=== PATIENT | female | born 1965 | race Caucasian/White ===

== ENCOUNTER → 2016-09-16 | Outpatient (CLI) | payer MEDICARE ==
[2016-09-16 19:23] LABS: Basophils % (A) 1 %; CH 30.1; CHCM 33.7; Eosinophils % (A) 0 %; HCT 34.5 % (34.0-46.0); HDW 2.78; HGB 11.6 gm/dL (11.4-16.0); Luc # (Auto) 0.15; Luc % (Auto) 3; Lymphocytes # (A) 1.4 k/uL (1.0-4.8); Lymphocytes % (A) 29 %; MCH 30.2 pg (25.0-35.0); MCHC 33.7 g/dL (31.0-37.0); MCV 89.6 fL (80.0-100.0); Mean Platelet Volume 7.4; Monocytes # (A) 0.3 k/uL (0-1.0); Monocytes % (A) 5 %; Neutrophils # (A) 3.1 k/uL (1.3-7.7); Neutrophils % (A) 63 %; RBC 3.84 m/uL (3.80-5.40); RDW 12.9 % (11.5-15.5); WBC (Perox) 5.34
[2016-09-16 19:36] LABS: ALT 38 U/L (9-52); AST 32 U/L (14-36); Alkaline Phosphatase 84 U/L (38-126); Anion Gap 11 mmol/L; Blood Urea Nitrogen 11 mg/dL (7-17); Calcium 10.1 mg/dL (8.4-10.2); Carbon Dioxide 26 mmol/L (22-30); Chloride 107 mmol/L (98-107); Glucose 101 mg/dL (74-99); Non-African American GFR(MDRD) >60 (>60 ml/min/1.73 sqM); Potassium 3.9 mmol/L (3.5-5.1); Sodium 144 mmol/L (137-145); Total Bilirubin 0.4 mg/dL (0.2-1.3); Total Protein 7.1 g/dL (6.3-8.2)
== END | disposition home or self-care (01) ==
LOC: EKGWHC1 18:14
PROVIDERS: ATTEND Psychiatry & Neurology Neurology
DX: G35 Multiple sclerosis (principal); E55.9 Vitamin D deficiency, unspecified
CPT/HCPCS: 80053; 82306; 85025

== ENCOUNTER → 2016-09-26 | Outpatient (CLI) | payer MEDICARE | END | disposition home or self-care (01) | LOC: LABWHC1 15:59 | PROVIDERS: ATTEND Nurse Practitioner Acute Care | DX: Z01.812 Encounter for preprocedural laboratory examination (principal) | CPT/HCPCS: 36415; 86480 ==

== ENCOUNTER 2017-01-25 02:38 | Emergency (ER) | payer MEDICARE ==
[2017-01-25 02:52] VITALS: BP 155/96; PULSE 91; RESP 18; TEMP 99.2
--- NOTE | 2017-01-25 03:06 | ED ---
Lower Extremity Injury HPI - General Chief Complaint: Extremity Injury, Lower Stated Complaint: FOOT INJURY Time Seen by Provider: 01/25/17 02:54 Source: patient, RN notes reviewed Mode of arrival: ambulatory Limitations: no limitations - History of Present Illness Initial Comments: 51-year-old female presents emergency Department chief complaint left foot injury. Patient states that her dog was chasing the cat states that she stubbed her foot. Patient states her is bruising, swelling noted just proximal to the second third and fourth digit. She states that she's had no prior injuries to her left foot no prior fractures. Patient denies any paresthesias. She has increased pain with ambulation better at rest and elevation. Patient states his happened last night. - Related Data Home Medications Medication Instructions Recorded Confirmed Esomeprazole Magnesium [NexIUM] 40 mg PO DAILY 02/13/16 02/13/16 cycloSPORINE 0.05% OPHTH SOLN 1 drop BOTH EYES DAILY 02/13/16 02/13/16 [Restasis] predniSONE 10 mg PO DAILY 02/13/16 02/13/16 traZODone HCL [Desyrel] 100 mg PO DAILY 02/13/16 02/13/16 Previous Rx's Medication Instructions Recorded Ondansetron Odt [Zofran ODT] 4 mg PO Q8HR PRN #5 tab 02/13/16 Allergies Allergy/AdvReac Type Severity Reaction Status Date / Time No Known Allergies Allergy Verified 01/25/17 02:51 Review of Systems ROS Statement: Those systems with pertinent positive or pertinent negative responses have been documented in the HPI. ROS Other: All systems not noted in ROS Statement are negative. Past Medical History Past Medical History: Fibromyalgia, Musculoskeletal Disorder Additional Past Medical History / Comment(s): Migraines, Shrgren syndrome, DDD, MS History of Any Multi-Drug Resistant Organisms: None Reported Past Surgical History: Appendectomy, Hysterectomy, Orthopedic Surgery Additional Past Surgical History / Comment(s): right ankle Past Psychological History: No Psychological Hx Reported Smoking Status: Never smoker Past Alcohol Use History: None Reported Past Drug Use History: None Reported General Exam Limitations: no limitations General appearance: alert, in no apparent distress Respiratory exam: Present: normal lung sounds bilaterally. Absent: respiratory distress, wheezes, rales, rhonchi, stridor Cardiovascular Exam: Present: regular rate, normal rhythm, normal heart sounds. Absent: systolic murmur, diastolic murmur, rubs, gallop, clicks Extremities exam: Present: other (Left foot there is ecchymosis noted proximal to digits 2 through 4 with moderate tenderness neurovascular intact Refill less than 2 seconds there is no proximal foot tenderness no ankle tenderness.) Neurological exam: Present: reflexes normal. Absent: motor sensory deficit Skin exam: Present: warm, dry Course Vital Signs 01/25/17 02:46 Temperature 99.2 F Pulse Rate 91 Respiratory 18 Rate Blood Pressure 155/96 O2 Sat by Pulse 98 Oximetry Medical Decision Making - Medical Decision Making 51-year-old female presented emergency department for left foot pain. Patient has a third digit fracture. There is number tarsal fracture. Patient has appointment with orthopedics tomorrow return parameters were discussed. Disposition Clinical Impression: Toe fracture Disposition: HOME SELF-CARE Condition: Stable Instructions: Toe Fracture (ED) Additional Instructions: Please return to the Emergency Department if symptoms worsen or any other concerns. Referrals: Sujit Pak DO [Primary Care Provider] - 1-2 days Time of Disposition: 03:28
--- NOTE | 2017-01-25 03:59 | XR ---
EXAM: XR Left Foot Complete, 3 or More Views CLINICAL HISTORY: Reason: Anterior foot pain and bruising post injury. TECHNIQUE: Frontal, lateral and oblique views of the left foot. COMPARISON: No relevant prior studies available. FINDINGS: Bones/joints: As only seen on the oblique view, there is oblique lucency involving the proximal to mid shaft of the third proximal phalanx, which raises suspicion for a nondisplaced fracture. The osseous structures otherwise appear intact as does alignment. Soft tissues: Unremarkable. No radiopaque foreign body. IMPRESSION: Oblique lucency involving the third proximal phalanx that is only apparent on one view although does raise suspicion for the presence of a nondisplaced fracture. This could be correlated clinically with site of symptomatology.
== END 2017-01-25 03:45 | disposition home or self-care (01) ==
LOC: EC 02:38
DX: S92.515A Nondisplaced fracture of proximal phalanx of left lesser toe(s), initial encounter for closed fracture (principal); M62.9 Disorder of muscle, unspecified; Z79.52 Long term (current) use of systemic steroids; Z79.899 Other long term (current) drug therapy; W22.09XA Striking against other stationary object, initial encounter
CPT/HCPCS: 99283

== ENCOUNTER → 2017-02-13 | Outpatient (CLI) | payer MEDICARE ==
[2017-02-13 12:59] LABS: ALT 38 U/L (9-52); AST 20 U/L (14-36); Alkaline Phosphatase 71 U/L (38-126); Anion Gap 11 mmol/L; Blood Urea Nitrogen 14 mg/dL (7-17); Calcium 10.4 mg/dL (8.4-10.2); Carbon Dioxide 25 mmol/L (22-30); Chloride 109 mmol/L (98-107); Glucose 106 mg/dL (74-99); Non-African American GFR(MDRD) >60 (>60 ml/min/1.73 sqM); Potassium 3.9 mmol/L (3.5-5.1); Sodium 145 mmol/L (137-145); Total Bilirubin 0.3 mg/dL (0.2-1.3)
[2017-02-13 13:02] LABS: Basophils % (A) 0 %; CH 30.8; CHCM 32.8; Eosinophils % (A) 0 %; HCT 39.9 % (34.0-46.0); HDW 2.43; HGB 13.1 gm/dL (11.4-16.0); Luc # (Auto) 0.07; Luc % (Auto) 1; Lymphocytes # (A) 2.4 k/uL (1.0-4.8); Lymphocytes % (A) 47 %; MCHC 32.8 g/dL (31.0-37.0); MCV 94.4 fL (80.0-100.0); Mean Platelet Volume 7.4; Monocytes # (A) 0.3 k/uL (0-1.0); Monocytes % (A) 6 %; Neutrophils # (A) 2.4 k/uL (1.3-7.7); Neutrophils % (A) 46 %; RBC 4.23 m/uL (3.80-5.40); RDW 13.9 % (11.5-15.5); WBC 5.2 k/uL (3.8-10.6); WBC (Perox) 5.26
--- NOTE | 2017-02-13 16:50 | MR ---
EXAMINATION TYPE: MR brain wo/w con DATE OF EXAM: 02/13/2017 COMPARISON: 12/28/2015 HISTORY: MS follow Tingling in Fingers Both Hands, hx pineal cyst TECHNIQUE: Multiplanar, multisequence images of the brain and brainstem is performed without and with IV contras t, utilizing 14 mL intravenous MultiHance . FINDINGS: Diffusion weighted images demonstrate no evidence of a recent infarct or other diffusion ab normality. There is no extra-axial fluid collection or significant white matter signal abnormality. The ventricular system and cisternal spaces are normal in size and appearance. The brain volume is age appropriate. Midline structures demonstrate normal morphology. The craniocervical junction appears within normal limits. On inversion recovery weighted sequences there are subcortical and deep white matter punctate changes . The larger areas are within the posterior frontal lobes. On the left this measures 0.3 x 0.3 x 0.2 cm in size. Series 501, image 17, series 601 image 10. A larger area within the right frontal lobe me asures 0.4 x 0.5 x 0.2 cm. Series 501, image 18, series 601 image 25. Following contrast administration, no abnormal enhancement is evident. Dural sinus appears normal. No rmal vascular enhancement appears to be present. Pineal region appears stable in size. IMPRESSION: 1. Few small white matter changes slightly greater than expected for the patient age. Findings can be compatible with multiple sclerosis. Differential should include migraine headaches and Lyme disease among other etiologies. 2. Examination appears stable from 2015.
== END | disposition home or self-care (01) ==
LOC: RADMRIMAIN 12:22
PROVIDERS: ATTEND Psychiatry & Neurology Neurology
DX: Z51.81 Encounter for therapeutic drug level monitoring (principal); G35 Multiple sclerosis; E55.9 Vitamin D deficiency, unspecified
CPT/HCPCS: 80053; 85025; 82306; 70553; 36415; A9577

== ENCOUNTER → 2017-02-23 | Outpatient (CLI) | payer MEDICARE ==
--- NOTE | 2017-02-27 09:02 | MM ---
Reason for exam: screening (asymptomatic). Last mammogram was performed 4 years and 3 months ago. History: Family history of breast cancer in maternal grandmother and breast cancer in aunt. Took hormonal contraceptives for 10 years. Physical Findings: A clinical breast exam by your physician is recommended on an annual basis and results should be correlated with mammographic findings. MG 3D Screening Mammo W/Cad Bilateral CC and MLO view(s) were taken. Prior study comparison: December 06, 2012, mammogram, performed at [facility]. September 30, 2010, mammogram, performed at [facility]. The breast tissue is heterogeneously dense. This may lower the sensitivity of mammography. No significant changes when compared with prior studies. ASSESSMENT: Negative, BI-RAD 1 RECOMMENDATION: Routine screening mammogram of both breasts in 1 year.
== END | disposition home or self-care (01) ==
LOC: RADMAMWWP 13:47
PROVIDERS: ATTEND Family Medicine
DX: Z12.31 Encounter for screening mammogram for malignant neoplasm of breast (principal)
CPT/HCPCS: 77063; G0202

== ENCOUNTER → 2017-09-21 | Outpatient (CLI) | payer OTHER ==
[2017-09-21 16:43] LABS: Basophils % (A) 0 %; Eosinophils % (A) 0 %; HCT 36.7 % (34.0-46.0); Lymphocytes # (A) 1.4 k/uL (1.0-4.8); Lymphocytes % (A) 17 %; MCHC 32.7 g/dL (31.0-37.0); MCV 91.9 fL (80.0-100.0); Mean Platelet Volume 7.2; Monocytes # (A) 0.5 k/uL (0-1.0); Monocytes % (A) 6 %; Neutrophils # (A) 6.6 k/uL (1.3-7.7); Neutrophils % (A) 76 %; Platelet Count 412 k/uL (150-450); RDW 12.8 % (11.5-15.5); WBC 8.6 k/uL (3.8-10.6)
== END | disposition home or self-care (01) ==
LOC: LABWHC1 16:01 → MERGE 16:01
PROVIDERS: ATTEND Obstetrics & Gynecology
DX: Z01.812 Encounter for preprocedural laboratory examination (principal); Z01.818 Encounter for other preprocedural examination; N89.8 Other specified noninflammatory disorders of vagina; N93.9 Abnormal uterine and vaginal bleeding, unspecified; I10 Essential (primary) hypertension
CPT/HCPCS: 36415; 85025; 93005

== ENCOUNTER 2017-10-02 08:33 | Day surgery (SDC) | payer MEDICARE ==
[~2017-10-02 08:33] MED LIST: DEXAMETHASONE SOD PHOSPHATE 10 MG/ML 1 ML VIAL IV ONE; LACTATED RINGERS 1,000 ML IV SCH; MIDAZOLAM 2 MG/2 ML VIAL IV PRN; ONDANSETRON 4 MG/2 ML VIAL IVP ONE; SCOPOLAMINE 1.5MG/72HR PATCH TRANSDERM ONE; fentaNYL (PF) 50 MCG/ML 2 ML AMP IV PRN
[2017-10-02] MEDS ORDERED: LIDOCAINE 1% 20 ML VIAL (10MG/ML) FOR IV START INTRADERMA ONE (09:39)
[2017-10-02 09:47] LABS: Glucose,Whole Blood 109 mg/dL (75-99)
[2017-10-02] MEDS ORDERED: HYDROCORTISONE SUCCINATE 100 MG/2 ML VIAL IVP ONE (09:59)
[2017-10-02] MEDS ORDERED: MIDAZOLAM 2 MG/2 ML VIAL ONE (10:20)
[2017-10-02] MEDS ORDERED: fentaNYL (PF) 50 MCG/ML 2 ML AMP ONE (10:20)
[2017-10-02] MEDS ORDERED: PROPOFOL 10 MG/ML 20 ML VIAL IV ONE (10:20)
[2017-10-02] MEDS ORDERED: LIDOCAINE 1% INJ 10MG/ML (20 ML MDV) ONE (10:20)
[2017-10-02] MEDS ORDERED: BACITRACIN 500 UNIT/GM OINT 28.4 GM TUBE TOPICAL ONE (10:44)
--- NOTE | 2017-10-02 10:59 | P.OP ---
Date of Procedure: 10/02/17 Preoperative Diagnosis: Postcoital bleeding Possible vaginal lesion Vaginal atrophy Postoperative Diagnosis: Postcoital bleeding Severe vaginal atrophy Procedure(s) Performed: Exam under anesthesia with biopsies of vaginal apex Anesthesia: MAC Surgeon: Lexy Alegre Estimated Blood Loss (ml): 5 IV fluids (ml): 400 Urine output (ml): 25 Pathology: other (Vaginal apex biopsies 3) Condition: stable Disposition: PACU Indications for Procedure: Heavy postcoital bleeding Operative Findings: Foreshortened vagina status post hysterectomy. Severe vaginal atrophy with reading and evidence of, at vaginal apex. No gross lesions appreciated. Description of Procedure: After the patient was met in the preoperative holding area and all questions were answered, she was taken to the operating room where anesthetic was administered without incident. She was in positioned, prepped and draped in the dorsal lithotomy position. Bladder was drained for approximately 25 mL of clear urine. Speculum was placed in the vagina and the vagina was noted to be foreshortened likely secondary to atrophy and hysterectomy. The apex of the vagina was visualized and there was noted to be significant thinning of the vaginal tissue, paleness and an area of hyperemia consistent with possible healing trauma. This area did bleed when the speculum insertion. There appeared to be a small superficial vessel in this area. Rn Ante Partum biopsies from the left, midline and and right apex of the vagina were taken with the Diabetoian biopsy instrument. Bovie electrocautery was utilized for hemostasis at each biopsy site is well as the superficial blood vessel that was bleeding at the right apex. I believe this to be the initial source of her postcoital bleeding. The area was observed and some additional bleeding was noted. This was controlled with holding firm pressure to the area. EBL was approximately 5 mL's. The area was observed and noted to be hemostatic therefore the patient was awoken from anesthetic and transported to recovery in good condition. All counts reported to me as correct.
[2017-10-02 11:06] VITALS: TEMP 96.8
[2017-10-02 12:19] VITALS: BP 104/62; PULSE 83; RESP 18
== END 2017-10-02 12:33 | disposition home or self-care (01) ==
LOC: OR 08:33 → MERGE 11:25 → OR 12:33
PROVIDERS: ATTEND Obstetrics & Gynecology
DX: N95.2 Postmenopausal atrophic vaginitis (principal); N76.5 Ulceration of vagina; N93.0 Postcoital and contact bleeding; M45.9 Ankylosing spondylitis of unspecified sites in spine; M19.90 Unspecified osteoarthritis, unspecified site; M79.7 Fibromyalgia; I10 Essential (primary) hypertension; K58.9 Irritable bowel syndrome, unspecified; G35 Multiple sclerosis; I73.00 Raynaud's syndrome without gangrene; M35.00 Sjogren syndrome, unspecified; F32.9 Major depressive disorder, single episode, unspecified; K21.9 Gastro-esophageal reflux disease without esophagitis; Z79.891 Long term (current) use of opiate analgesic; Z79.899 Other long term (current) drug therapy; Z88.6 Allergy status to analgesic agent
CPT/HCPCS: 88305; 57100; J2250; J1100; J1720; J2405; J2001; J3010; J2704

== ENCOUNTER → 2017-10-04 | Outpatient (CLI) | payer MEDICARE ==
[2017-10-04 11:53] LABS: Albumin 4.3 g/dL (3.5-5.0); Calcium 10.1 mg/dL (8.4-10.2); Potassium 4.2 mmol/L (3.5-5.1); Total Bilirubin 0.4 mg/dL (0.2-1.3); Total Protein 6.9 g/dL (6.3-8.2)
[2017-10-04 16:19] LABS: Vitamin D 25 Hydroxy 81.4 ng/mL (30.0-100.0)
== END | disposition home or self-care (01) ==
LOC: LABWHC1 10:43
PROVIDERS: ATTEND Nurse Practitioner Acute Care
DX: E55.9 Vitamin D deficiency, unspecified (principal); G35 Multiple sclerosis
CPT/HCPCS: 36415; 80053; 82306; 82607

== ENCOUNTER → 2017-11-06 | Outpatient (CLI) | payer MEDICARE | END | disposition home or self-care (01) | LOC: LABWHC1 14:49 | PROVIDERS: ATTEND Obstetrics & Gynecology | DX: N95.2 Postmenopausal atrophic vaginitis (principal); N95.1 Menopausal and female climacteric states | CPT/HCPCS: 36415; 82670; 83001; 84403 ==

== ENCOUNTER → 2018-01-19 | Outpatient (CLI) | payer MEDICARE ==
[2018-01-19 12:41] LABS: Blood Urea Nitrogen 22 mg/dL (7-17)
--- NOTE | 2018-01-21 21:18 | MR ---
EXAMINATION TYPE: MR brain wo/w con DATE OF EXAM: 01/19/2018 COMPARISON: 02/13/2017 HISTORY: 52-year-old female MS, follow-up exam TECHNIQUE: Multiplanar, multisequence images of the brain and brainstem is performed without and with utilizing 7 mL intravenous Gadavist gadolinium contrast. Demyelinating disease protocol with additi onal Sagittal Flair sequence performed. FINDINGS: T2 Lesions Present : Yes Approximate Number of Lesions: 4 and the right cerebral hemisphere and 2 on the left Locations Identified : Primarily bifrontal subcortical Size of Reference Lesion(s): 1. 5 mm subcortical right frontal region, axial image 18, unchanged. 2. 3 mm subcortical left frontal region, axial image 16, unchanged. Enhancing Lesion(s) Present: No T1 Hypointense Lesion(s) Present: Yes Change from Prior: No change Diffusion weighted images demonstrate no evidence of a recent infarct or other diffusion abnormality. There is no worrisome extra-axial fluid collection. The ventricular system and cisternal spaces ar e normal in size and appearance. The brain volume is age appropriate. Midline structures demonstrate normal morphology. The craniocervical junction appears within normal limits. Post contrast images demonstrate no abnormal enhancement. The dural venous sinuses appear pa tent. Trace mucosal thickening ethmoid air cells and frontal sinuses. Globes are intact. IMPRESSION: Stable mild burden of T2 bright white matter change in the bifrontal juxtacortical regions. No new or enhancing lesion seen.
== END | disposition home or self-care (01) ==
LOC: RADMRIMAIN 12:08
PROVIDERS: ATTEND Psychiatry & Neurology Neurology
DX: R90.82 White matter disease, unspecified (principal); G35 Multiple sclerosis
CPT/HCPCS: 82565; 84520; 70553; 36415; A9581

== ENCOUNTER → 2018-02-01 | Outpatient (CLI) | payer MEDICARE ==
--- NOTE | 2018-02-01 17:50 | XR ---
EXAMINATION TYPE: XR ribs bilateral DATE OF EXAM: 02/01/2018 COMPARISON: NONE HISTORY: Rib pain TECHNIQUE: 8 views FINDINGS: There is deformity of lower lateral ribs bilaterally related to old healed fractures. There is possible new acute fracture anterior left eighth rib. There is no evidence of pleural effusion or pneumothorax. IMPRESSION: Possible new nondisplaced fracture anterior left eighth rib.
== END | disposition home or self-care (01) ==
LOC: RADXRMAIN 17:18
PROVIDERS: ATTEND Family Medicine
DX: R07.82 Intercostal pain (principal)
CPT/HCPCS: 71110

== ENCOUNTER → 2018-02-01 | Outpatient (CLI) | payer MEDICARE ==
[2018-02-01 17:51] LABS: Basophils % (A) 0 %; Eosinophils % (A) 0 %; Lymphocytes # (A) 1.2 k/uL (1.0-4.8); Lymphocytes % (A) 14 %; MCH 29.5 pg (25.0-35.0); MCHC 32.3 g/dL (31.0-37.0); MCV 91.5 fL (80.0-100.0); Monocytes # (A) 0.4 k/uL (0-1.0); Monocytes % (A) 5 %; Neutrophils # (A) 6.4 k/uL (1.3-7.7); Neutrophils % (A) 80 %; Platelet Count 431 k/uL (150-450); RBC 4.05 m/uL (3.80-5.40); RDW 13.9 % (11.5-15.5)
[2018-02-01 17:59] LABS: ALT 46 U/L (9-52); AST 30 U/L (14-36); Albumin 4.3 g/dL (3.5-5.0); Alkaline Phosphatase 141 U/L (38-126); Anion Gap 9 mmol/L; Blood Urea Nitrogen 19 mg/dL (7-17); Calcium 10.4 mg/dL (8.4-10.2); Carbon Dioxide 32 mmol/L (22-30); Chloride 98 mmol/L (98-107); Glucose 113 mg/dL (74-99); Potassium 3.9 mmol/L (3.5-5.1); Sodium 139 mmol/L (137-145); Total Bilirubin 0.4 mg/dL (0.2-1.3); Total Protein 6.9 g/dL (6.3-8.2)
== END | disposition home or self-care (01) ==
LOC: LABWHC1 17:02
PROVIDERS: ATTEND Nurse Practitioner Acute Care
DX: G35 Multiple sclerosis (principal); E55.9 Vitamin D deficiency, unspecified
CPT/HCPCS: 36415; 80053; 82306; 85025

== ENCOUNTER → 2018-02-22 | Outpatient (CLI) | payer MEDICARE ==
--- NOTE | 2018-02-22 13:38 | MR ---
MRI CERVICAL SPINE: CLINICAL HISTORY: Cervicalgia per order. Headache with neck and extremity pain with tingling/numbness and weakness in upper extremities per patient for over 8 years. TECHNIQUE: Multiplanar, multisequence imaging of the cervical spine is performed without IV contrast. Demyelinating disease protocol with additional PD sagittal sequence cervical spine acquired. COMPARISON: Prior MRI cervical spine December 28, 2015 FINDINGS: Sagittal images of the cervical spine show the craniocervical junction to appear within nor mal limits. The cervical and upper thoracic spinal cord is normal in course, caliber, and signal. V ertebral alignment is anatomic. The vertebral body and intravertebral disk heights are normal. Tiny posterior disc herniation remains present C5-C6 level on sagittal images effacing anterior thecal sac . The bone marrow signal intensity is within normal limits. No significant spurring is present. Axial images show the C2-C3 and C3-C4 levels to remain within normal limits. Axial images at C4-C5 level show uncovertebral facet arthropathy and small foraminal disc herniations causing [id number] bilateral neural foraminal narrowing. No significant change from prior. Axial images at C5-C6 level show broad-based posterior disc protrusion effacing anterior thecal sac a nd causing [id number] bilateral neural foraminal narrowing. Axial images at C6-C7 and C7-T1 levels remain within normal limits. IMPRESSION: Some degenerative changes C4-C5 and C5-C6 level redemonstrated. No significant change fro m prior MRI. No abnormal cord signal to suggest demyelinating disease involvement.
== END | disposition home or self-care (01) ==
LOC: RADMRIMAIN 12:50
PROVIDERS: ATTEND Nurse Practitioner Acute Care
DX: M47.812 Spondylosis without myelopathy or radiculopathy, cervical region (principal)
CPT/HCPCS: 72141

== ENCOUNTER → 2018-06-25 | Outpatient (CLI) | payer MEDICARE ==
--- NOTE | 2018-06-25 17:20 | XR ---
EXAMINATION TYPE: XR chest 2V DATE OF EXAM: 06/25/2018 COMPARISON: NONE HISTORY: Chest pain TECHNIQUE: Frontal and lateral views of the chest are obtained. FINDINGS: There is no focal air space opacity, pleural effusion, or pneumothorax seen. The cardiac silhouette size is within normal limits. There is a spinal curvature present. The osseous structures are intact. IMPRESSION: No acute cardiopulmonary process. Suspect scoliosis.
== END | disposition home or self-care (01) ==
LOC: RADXRMAIN 15:53
PROVIDERS: ATTEND Family Medicine
DX: R07.89 Other chest pain (principal)
CPT/HCPCS: 71046

== ENCOUNTER → 2018-10-24 | Outpatient (CLI) | payer MEDICARE ==
--- NOTE | 2018-10-24 15:55 | XR ---
Right foot HISTORY: Trauma and pain 3 views of the right foot Bone mineralization remarkable for a linear lucency at the proximal fifth metatarsal. No dislocation. Alignment and bone mineralization, joint spaces otherwise maintained. Postop change noted to the dis daren fibula. IMPRESSION: Nondisplaced proximal fifth metatarsal fracture is suspected. Correlate for kianna yang ess. A Yellow level critical message alert has been initiated for Chase Morales DO via the [facility] on 10/24/2018 3:53 PM. This message alert has been sent to Chase Morales DO via the preferences provided by the clinician for the receipt of Radiology Critical Findings. Message ID [id number].
== END | disposition home or self-care (01) ==
LOC: RADXRMAIN 12:53
PROVIDERS: ATTEND Family Medicine
DX: M79.671 Pain in right foot (principal)
CPT/HCPCS: 87086

== ENCOUNTER 2018-12-20 13:06 | Inpatient (IN) | payer MEDICARE ==
--- NOTE | 2018-12-20 13:22 | ED ---
General Adult HPI - General Chief complaint: Nausea/Vomiting/Diarrhea Stated complaint: NVD, chest pain Time Seen by Provider: 12/20/18 13:15 Source: patient, RN notes reviewed Mode of arrival: ambulatory Limitations: no limitations - History of Present Illness Initial comments: 53-year-old femaleWith the past medical history of fibromyalgia, musculoskeletal disorder, migraines, Sjogren syndrome, MS, DDD resents to the emergency department for multiple complaints. Patient's main complaint is nausea vomiting and diarrhea times one week. States that she came down with some type of stomach flu about a week ago and feels she is dehydrated. States the vomiting has resolved but she is still having several episodes of diarrhea. Denies any abdominal pain but states she does not have an appetite. States that she is also having some chest pain has been ongoing for several days or states it is sharp in nature. States she feels more tired than normal which has been ongoing for several months so she had a stress test scheduled for yesterday which she was unable to attend. States she did fall this past week due to her generalized weakness and is now complaining of left ankle pain. Denies fevers or chills. Denies abdominal pain. Denies any hematemesis, melena. Denies any dysuria. Denies any cough congestion.Patient has no other complaints at this time including shortness of breath, headache, or visual changes. - Related Data Home Medications Medication Instructions Recorded Confirmed predniSONE 20 mg PO QAM 02/13/16 09/27/17 traZODone HCL [Desyrel] 100 mg PO HS 02/13/16 10/02/17 Ascorbic Acid [Vitamin C with Kathy 1 tab PO DAILY 09/27/17 10/02/17 Hips] Calcium,Mg,Zinc, Vit D3 1 tab PO DAILY 09/27/17 10/02/17 Carvedilol [Coreg] 25 mg PO BID 09/27/17 09/27/17 Cholecalciferol [Vitamin D3] 5,000 unit PO DAILY 09/27/17 09/27/17 Cyclobenzaprine [Flexeril] 10 mg PO TID 09/27/17 10/02/17 Esomeprazole Magnesium [NexIUM] 40 mg PO BID 09/27/17 09/27/17 Ibuprofen 800 mg PO DAILY PRN 09/27/17 09/27/17 Lisdexamfetamine Dimesylate 70 mg PO QAM 09/27/17 10/02/17 [Vyvanse] Losartan/Hydrochlorothiazide 1 tab PO QAM 09/27/17 09/27/17 [Hyzaar 100-25 Tablet] Pilocarpine HCl [Salagen] 5 mg PO TID 09/27/17 09/27/17 Teriflunomide [Aubagio] 14 mg PO HS 09/27/17 10/02/17 Topiramate 50 mg PO BID 09/27/17 09/27/17 Venlafaxine HCl ER [Effexor XR] 150 mg PO PC-SUPPER 09/27/17 10/02/17 Vitamin B Complex 1 tab PO DAILY 09/27/17 09/27/17 oxyCODONE-APAP 10-325MG [Percocet 1 tab PO Q6HR PRN 09/27/17 10/02/17 10-325 mg] rOPINIRole HCL 5 mg PO HS 09/27/17 10/02/17 Previous Rx's Medication Instructions Recorded Estradiol Cream [Estrace Cream 1 gm VAGINAL Q3D #30 tube 10/02/17 0.01%] Allergies Allergy/AdvReac Type Severity Reaction Status Date / Time aspirin AdvReac Nausea Verified 12/20/18 13:14 Review of Systems ROS Statement: Those systems with pertinent positive or pertinent negative responses have been documented in the HPI. ROS Other: All systems not noted in ROS Statement are negative. Past Medical History Past Medical History: Fibromyalgia, Musculoskeletal Disorder Additional Past Medical History / Comment(s): Migraines, Shrgren syndrome, DDD, MS History of Any Multi-Drug Resistant Organisms: None Reported Past Surgical History: Appendectomy, Hysterectomy, Orthopedic Surgery Additional Past Surgical History / Comment(s): right ankle Past Psychological History: No Psychological Hx Reported Smoking Status: Never smoker Past Alcohol Use History: None Reported Past Drug Use History: None Reported General Exam Limitations: no limitations General appearance: alert, in no apparent distress Head exam: Present: atraumatic, normocephalic, normal inspection Eye exam: Present: normal appearance, PERRL, EOMI. Absent: scleral icterus, conjunctival injection ENT exam: Present: normal exam, normal oropharynx, mucous membranes moist, TM's normal bilaterally, normal external ear exam Neck exam: Present: normal inspection, full ROM. Absent: tenderness, meningismus, lymphadenopathy Respiratory exam: Present: normal lung sounds bilaterally. Absent: respiratory distress, wheezes, rales, rhonchi, stridor Cardiovascular Exam: Present: regular rate, normal rhythm, normal heart sounds. Absent: systolic murmur, diastolic murmur, rubs, gallop, clicks GI/Abdominal exam: Present: soft, normal bowel sounds. Absent: distended, tenderness, guarding, rebound, rigid Neurological exam: Present: alert, oriented X3, CN II-XII intact Psychiatric exam: Present: normal affect, normal mood Course Vital Signs 12/20/18 12/20/18 12/20/18 13:11 14:28 14:31 Temperature 97.0 F L Pulse Rate 101 H 93 Respiratory 18 18 18 Rate Blood Pressure 105/57 92/56 O2 Sat by Pulse 98 100 Oximetry 12/20/18 15:51 Temperature 98 F Pulse Rate 93 Respiratory 18 Rate Blood Pressure 104/52 O2 Sat by Pulse 100 Oximetry EKG Findings - EKG Comments: EKG Findings:: Normal sinus rhythm, ventricular rate 99, CA interval 148, QTC 469, right bundle branch block noted, chronic. Procedures - Orthopedic Splinting/Casting Injury #1 Side: left Lower Extremity Injury Location: short leg Lower Extremity Immobilizer: posterior splint Additional Comments: NV status intact Medical Decision Making - Medical Decision Making 53-year-old female with a past medical history of fibromyalgia, Sjogren's, DDD, MS presents for multiple complaints. Patient's main complaint is nausea vomiting diarrhea times one week. Feels very weak because of this. No appetite. Laboratory work did reveal patient to be an acute kidney failure with a creatinine of 5.92. Additionally I think this is likely secondary to a prerenal cause of dehydration from nausea vomiting and diarrhea. Patient given 2 L of fluids and started on 150 per hour maintenance. CBC unremarkable besides for some mild anemia with hemoglobin of 9.8. Patient does have hyper phosphatemia with a phosphorus of 6.9. Minimal hypokalemia with a potassium of 3.4. Anion gap was 22 noted. Urine will be cultured. At this point patient will be admitted for nephrology consult. Juan Alberto also consulted as she does have a left fibular fracture from a fall a couple days ago from this weakness. Patient was limited in a posterior mold. - Lab Data Result diagrams: 12/20/18 13:45 12/20/18 13:45 Lab Results 12/20/18 12/20/18 12/20/18 Range/Units 13:45 13:45 13:45 WBC 4.8 (3.8-10.6) k/uL RBC 3.13 L (3.80-5.40) m/uL Hgb 9.8 L (11.4-16.0) gm/dL Hct 27.5 L (34.0-46.0) % MCV 87.8 (80.0-100.0) fL MCH 31.4 (25.0-35.0) pg MCHC 35.8 (31.0-37.0) g/dL RDW 14.0 (11.5-15.5) % Plt Count 439 (150-450) k/uL Neutrophils % 78 % Lymphocytes % 14 % Monocytes % 6 % Eosinophils % 0 % Basophils % 0 % Neutrophils # 3.7 (1.3-7.7) k/uL Lymphocytes # 0.7 L (1.0-4.8) k/uL Monocytes # 0.3 (0-1.0) k/uL Eosinophils # 0.0 (0-0.7) k/uL Basophils # 0.0 (0-0.2) k/uL Sodium 134 L (137-145) mmol/L Potassium 3.4 L (3.5-5.1) mmol/L Chloride 95 L (98-107) mmol/L Carbon Dioxide 17 L (22-30) mmol/L Anion Gap 22 mmol/L BUN 72 H (7-17) mg/dL Creatinine 5.92 H (0.52-1.04) mg/dL Est GFR (CKD-EPI)AfAm 9 (>60 ml/min/1.73 sqM) Est GFR (CKD-EPI)NonAf 8 (>60 ml/min/1.73 sqM) Glucose 107 H (74-99) mg/dL Calcium 9.3 (8.4-10.2) mg/dL Phosphorus (2.5-4.5) mg/dL Magnesium (1.6-2.3) mg/dL Total Bilirubin 0.6 (0.2-1.3) mg/dL AST 22 (14-36) U/L ALT 24 (9-52) U/L Alkaline Phosphatase 109 (38-126) U/L Creatine Kinase (30-135) U/L Troponin I <0.012 (0.000-0.034) ng/mL Total Protein 7.3 (6.3-8.2) g/dL Albumin 4.3 (3.5-5.0) g/dL Amylase 82 (30-110) U/L Lipase 152 (23-300) U/L Urine Color Urine Appearance (Clear) Urine pH (5.0-8.0) Ur Specific [place] (1.001-1.035) Urine Protein (Negative) Urine Glucose (UA) (Negative) Urine Ketones (Negative) Urine Blood (Negative) Urine Nitrite (Negative) Urine Bilirubin (Negative) Urine Urobilinogen (<2.0) mg/dL Ur Leukocyte Esterase (Negative) Urine RBC (0-5) /hpf Urine WBC (0-5) /hpf Ur Squamous Epith Cells (0-4) /hpf Urine Bacteria (None) /hpf Hyaline Casts (0-2) /lpf Urine Mucus (None) /hpf Urine HCG, Qual (Not Detectd) 12/20/18 12/20/18 12/20/18 Range/Units 13:45 13:45 15:00 WBC (3.8-10.6) k/uL RBC (3.80-5.40) m/uL Hgb (11.4-16.0) gm/dL Hct (34.0-46.0) % MCV (80.0-100.0) fL MCH (25.0-35.0) pg MCHC (31.0-37.0) g/dL RDW (11.5-15.5) % Plt Count (150-450) k/uL Neutrophils % % Lymphocytes % % Monocytes % % Eosinophils % % Basophils % % Neutrophils # (1.3-7.7) k/uL Lymphocytes # (1.0-4.8) k/uL Monocytes # (0-1.0) k/uL Eosinophils # (0-0.7) k/uL Basophils # (0-0.2) k/uL Sodium (137-145) mmol/L Potassium (3.5-5.1) mmol/L Chloride (98-107) mmol/L Carbon Dioxide (22-30) mmol/L Anion Gap mmol/L BUN (7-17) mg/dL Creatinine (0.52-1.04) mg/dL Est GFR (CKD-EPI)AfAm (>60 ml/min/1.73 sqM) Est GFR (CKD-EPI)NonAf (>60 ml/min/1.73 sqM) Glucose (74-99) mg/dL Calcium (8.4-10.2) mg/dL Phosphorus 6.9 H (2.5-4.5) mg/dL Magnesium 1.8 (1.6-2.3) mg/dL Total Bilirubin (0.2-1.3) mg/dL AST (14-36) U/L ALT (9-52) U/L Alkaline Phosphatase (38-126) U/L Creatine Kinase 164 H (30-135) U/L Troponin I (0.000-0.034) ng/mL Total Protein (6.3-8.2) g/dL Albumin (3.5-5.0) g/dL Amylase (30-110) U/L Lipase (23-300) U/L Urine Color Yellow Urine Appearance Cloudy H (Clear) Urine pH 5.0 (5.0-8.0) Ur Specific [place] 1.019 (1.001-1.035) Urine Protein 1+ H (Negative) Urine Glucose (UA) Negative (Negative) Urine Ketones Trace H (Negative) Urine Blood Negative (Negative) Urine Nitrite Negative (Negative) Urine Bilirubin Negative (Negative) Urine Urobilinogen 2.0 (<2.0) mg/dL Ur Leukocyte Esterase Large H (Negative) Urine RBC 10 H (0-5) /hpf Urine WBC 20 H (0-5) /hpf Ur Squamous Epith Cells 13 H (0-4) /hpf Urine Bacteria Rare H (None) /hpf Hyaline Casts 39 H (0-2) /lpf Urine Mucus Rare H (None) /hpf Urine HCG, Qual (Not Detectd) 12/20/18 Range/Units 15:00 WBC (3.8-10.6) k/uL RBC (3.80-5.40) m/uL Hgb (11.4-16.0) gm/dL Hct (34.0-46.0) % MCV (80.0-100.0) fL MCH (25.0-35.0) pg MCHC (31.0-37.0) g/dL RDW (11.5-15.5) % Plt Count (150-450) k/uL Neutrophils % % Lymphocytes % % Monocytes % % Eosinophils % % Basophils % % Neutrophils # (1.3-7.7) k/uL Lymphocytes # (1.0-4.8) k/uL Monocytes # (0-1.0) k/uL Eosinophils # (0-0.7) k/uL Basophils # (0-0.2) k/uL Sodium (137-145) mmol/L Potassium (3.5-5.1) mmol/L Chloride (98-107) mmol/L Carbon Dioxide (22-30) mmol/L Anion Gap mmol/L BUN (7-17) mg/dL Creatinine (0.52-1.04) mg/dL Est GFR (CKD-EPI)AfAm (>60 ml/min/1.73 sqM) Est GFR (CKD-EPI)NonAf (>60 ml/min/1.73 sqM) Glucose (74-99) mg/dL Calcium (8.4-10.2) mg/dL Phosphorus (2.5-4.5) mg/dL Magnesium (1.6-2.3) mg/dL Total Bilirubin (0.2-1.3) mg/dL AST (14-36) U/L ALT (9-52) U/L Alkaline Phosphatase (38-126) U/L Creatine Kinase (30-135) U/L Troponin I (0.000-0.034) ng/mL Total Protein (6.3-8.2) g/dL Albumin (3.5-5.0) g/dL Amylase (30-110) U/L Lipase (23-300) U/L Urine Color Urine Appearance (Clear) Urine pH (5.0-8.0) Ur Specific [place] (1.001-1.035) Urine Protein (Negative) Urine Glucose (UA) (Negative) Urine Ketones (Negative) Urine Blood (Negative) Urine Nitrite (Negative) Urine Bilirubin (Negative) Urine Urobilinogen (<2.0) mg/dL Ur Leukocyte Esterase (Negative) Urine RBC (0-5) /hpf Urine WBC (0-5) /hpf Ur Squamous Epith Cells (0-4) /hpf Urine Bacteria (None) /hpf Hyaline Casts (0-2) /lpf Urine Mucus (None) /hpf Urine HCG, Qual Not Detected (Not Detectd) Disposition Clinical Impression: REINIER (acute kidney injury), Nausea vomiting and diarrhea Disposition: ADMITTED IP TO THIS HOSP Condition: Fair Is patient prescribed a controlled substance at d/c from ED?: No Referrals: Sujit Pak DO [Primary Care Provider] - 1-2 days Time of Disposition: 16:30
[2018-12-20] MEDS ORDERED: SODIUM CHLORIDE 0.9% 1,000 ML IV STA ×2 (13:30→14:53)
[2018-12-20] MEDS ORDERED: KETOROLAC 30 MG/ML 1 ML VIAL IVP STA (13:30)
[2018-12-20] MEDS ORDERED: ONDANSETRON 4 MG/2 ML VIAL IVP STA (13:30)
[2018-12-20 14:05] LABS: Basophils % (A) 0 %; Eosinophils % (A) 0 %; HCT 27.5 % (34.0-46.0); HGB 9.8 gm/dL (11.4-16.0); Lymphocytes # (A) 0.7 k/uL (1.0-4.8); Lymphocytes % (A) 14 %; MCH 31.4 pg (25.0-35.0); MCHC 35.8 g/dL (31.0-37.0); MCV 87.8 fL (80.0-100.0); Monocytes # (A) 0.3 k/uL (0-1.0); Monocytes % (A) 6 %; Neutrophils # (A) 3.7 k/uL (1.3-7.7); Neutrophils % (A) 78 %; Platelet Count 439 k/uL (150-450); RBC 3.13 m/uL (3.80-5.40); WBC 4.8 k/uL (3.8-10.6)
[2018-12-20 14:23] LABS: Albumin 4.3 g/dL (3.5-5.0); Calcium 9.3 mg/dL (8.4-10.2); Potassium 3.4 mmol/L (3.5-5.1); Total Bilirubin 0.6 mg/dL (0.2-1.3); Total Protein 7.3 g/dL (6.3-8.2)
--- NOTE | 2018-12-20 14:51 | XR ---
EXAMINATION TYPE: XR ankle complete LT DATE OF EXAM: 12/20/2018 COMPARISON: NONE HISTORY: Leg pain FINDINGS: Three views of the ankle demonstrate the ankle mortise to be intact and symmetric. The joint spaces are preserved. There is a comminuted fracture of the distal diaphysis of the fibula. Calcaneal spurs are noted. IMPRESSION: 1. Comminuted displaced fracture of the distal fibula.
--- NOTE | 2018-12-20 14:52 | XR ---
EXAMINATION TYPE: XR chest 2V DATE OF EXAM: 12/20/2018 COMPARISON: 06/25/2018 TECHNIQUE: PA and lateral views submitted. HISTORY: Chest pain FINDINGS: The lungs are clear and there is no pneumothorax, pleural effusion, or focal pneumonia. Linear schwab ges are seen involving both lungs congestive of scar or atelectasis. Appears to be a remote right-zain ed rib fractures. No pneumothorax. No overt failure. Hypertrophic and degenerative change of the spin e. Scoliotic curvature noted. IMPRESSION: 1. No acute process. Linear changes involving both lungs are suggestive of scar or atelectasis.
[2018-12-20 15:33] LABS: Appearance,Urine Cloudy (Clear); Bacteria,Urine Rare /hpf; Bilirubin,Urine Negative (Negative); Blood,Urine Negative (Negative); Color,Urine Yellow; Glucose,Urine (UA) Negative (Negative); Hyaline Casts,Urine 39 /lpf (0-2); Ketones,Urine Trace (Negative); Leukocyte Esterase,Urine Large (Negative); Mucus,Urine Rare /hpf; Nitrite,Urine Negative (Negative); Protein,Urine 1+ (Negative); RBC,Urine 10 /hpf (0-5); Specific Gravity,Urine 1.019 (1.001-1.035); Squamous Epithelial Cell,Urine 13 /hpf (0-4); WBC,Urine 20 /hpf (0-5)
[2018-12-20 15:34] LABS: Magnesium 1.8 mg/dL (1.6-2.3); Phosphorus 6.9 mg/dL (2.5-4.5)
[2018-12-20] MEDS ORDERED: NALOXONE 0.4 MG/ML 1 ML VIAL IV PRN (16:26)
[2018-12-20] MEDS ORDERED: HYDROmorphone 0.5 MG/0.5 ML SYRINGE IVP STA (16:37)
[2018-12-20] MEDS: SODIUM CHLORIDE 0.9% 1,000 ML IV SCH ×2 (17:55→21:56)
[2018-12-20] MEDS ORDERED: ONDANSETRON 4 MG/2 ML VIAL IVP PRN (19:02)
[2018-12-20] MEDS: HYDROmorphone 0.5 MG/0.5 ML SYRINGE IVP PRN (21:54)
[2018-12-21 08:27] LABS: Magnesium 1.8 mg/dL (1.6-2.3); Potassium 4.2 mmol/L (3.5-5.1)
--- NOTE | 2018-12-21 08:48 | P.NPCON ---
History of Present Illness - Reason for Consult acute renal failure - History of Present Illness Reason for consultation: Acute kidney injury History of present illness: Patient is a 53-year-old female seen in renal consultation for acute kidney injury. Patient's creatinine on admission was 5.92 and is down to 3.90 today. Patient's baseline creatinine is near 0.8 from January 2018. Patient presented to the hospital with nausea vomiting and diarrhea going on for the last 1 week. Patient states she did have dinner last night but had multiple episodes of diarrhea overnight. No more vomiting. She has been voiding. Denies hematuria or dysuria. Denies use of nonsteroidals. Denies family history of renal disease. No history of diabetes. Blood pressures have been on the lower side in the systolic 90s to 100s. She was taking edarbyclor as outpatient which is currently held. She is maintained on normal saline at 150 mL an hour. Vital signs are stable. General: The patient appeared well nourished and normally developed. HEENT: Head exam is unremarkable. Neck is without jugular venous distension. LUNGS: Lungs are clear to auscultation and percussion. Breath sounds decreased. HEART: Rate and Rhythm are regular. First and second heart sounds normal. No murmurs, rubs or gallops. ABDOMEN: Abdominal exam reveals normal bowel sounds. Non-tender and non- distended. No evidence of peritonitis. EXTREMITITES: No clubbing, cyanosis, or edema. Past Medical History Past Medical History: Fibromyalgia, Musculoskeletal Disorder Additional Past Medical History / Comment(s): Migraines, Shrgren syndrome, DDD, MS History of Any Multi-Drug Resistant Organisms: None Reported Past Surgical History: Appendectomy, Hysterectomy, Orthopedic Surgery Additional Past Surgical History / Comment(s): right ankle Past Psychological History: No Psychological Hx Reported Smoking Status: Never smoker Past Alcohol Use History: None Reported Past Drug Use History: None Reported Medications and Allergies Home Medications Medication Instructions Recorded Confirmed Type predniSONE 10 mg PO QAM PRN 02/13/16 12/20/18 History traZODone HCL [Desyrel] 100 mg PO HS 02/13/16 12/20/18 History Ascorbic Acid [Vitamin C with Kathy 1 tab PO DAILY 09/27/17 12/20/18 History Hips] Carvedilol [Coreg] 25 mg PO BID 09/27/17 12/20/18 History Cholecalciferol [Vitamin D3] 5,000 unit PO DAILY 09/27/17 12/20/18 History Cyclobenzaprine [Flexeril] 10 mg PO TID PRN 09/27/17 12/20/18 History Esomeprazole Magnesium [NexIUM] 40 mg PO BID 09/27/17 12/20/18 History Ibuprofen 800 mg PO DAILY PRN 09/27/17 12/20/18 History Pilocarpine HCl [Salagen] 5 mg PO TID 09/27/17 12/20/18 History Teriflunomide [Aubagio] 14 mg PO HS 09/27/17 12/20/18 History Topiramate 50 mg PO BID 09/27/17 12/20/18 History Venlafaxine HCl ER [Effexor XR] 150 mg PO DAILY 09/27/17 12/20/18 History Vitamin B Complex 1 tab PO DAILY 09/27/17 12/20/18 History rOPINIRole HCL 10 mg PO HS 09/27/17 12/20/18 History Azilsartan Med/Chlorthalidone 1 tab PO QAM 12/20/18 12/20/18 History [Edarbyclor 40-25 mg Tablet] Calcium/Magnesium/Zinc 1 tab PO DAILY 12/20/18 12/20/18 History [Qgmyjei-Uwtirruzn-Urnc Tablet] Dextroamphetamine Sulfate 15 mg PO BID 12/20/18 12/20/18 History [Dexedrine] Allergies Allergy/AdvReac Type Severity Reaction Status Date / Time aspirin AdvReac Nausea Verified 12/20/18 16:56 Physical Exam Vitals: Vital Signs Temp Pulse Pulse Resp BP BP Pulse Ox 12/21/18 05:00 97.1 F L 98 16 99/55 98 12/20/18 19:27 96.8 F L 101 H 16 120/68 98 12/20/18 17:50 97.7 F 86 16 95/59 100 12/20/18 15:51 98 F 93 18 104/52 100 12/20/18 14:31 18 12/20/18 14:28 93 18 92/56 100 12/20/18 13:11 97.0 F L 101 H 18 105/57 98 Intake and Output 12/20/18 12/21/18 12/21/18 22:59 06:59 14:59 Intake Total 450 Balance 450 Intake: Intake, IV Titration 450 Amount Sodium Chloride 0.9% 1, 450 000 ml @ 150 mls/hr IV . Q6H40M [facility] Rx#:[id number] Other: Voiding Method Bedside Commode # Voids 1 3 # Bowel Movements 3 Results - Lab Results Most recent lab results Calcium 8.0 mg/dL (8.4-10.2) L 12/21/18 07:18 Phosphorus 6.9 mg/dL (2.5-4.5) H 12/20/18 13:45 Magnesium 1.8 mg/dL (1.6-2.3) 12/21/18 07:18 12/20/18 13:45 12/21/18 07:18 Assessment and Plan Plan: Assessment: 1. Acute kidney injury mostly prerenal secondary to intravascular volume depletion from vomiting and diarrhea and further worsened with the use of diuretics and ARB. Patient also received a dose of Toradol in the ER. Baseline creatinine near 1 from January 2018. Creatinine was 5.92 this admission and is down to 3.98 today. 2. Hypokalemia from poor oral intake and GI losses. Better. 3. Nausea vomiting and diarrhea. Possibly viral gastroneuritis. C. diff has been negative. 4. Metabolic acidosis secondary to acute kidney injury and diarrhea. Plan: I will decrease rate of normal saline to 125 mL an hour. Check renal ultrasound. Follow-up urine culture. Encourage oral intake. Repeat electrolytes in the morning. Continue to hold antihypertensives. Check a.m. cortisol level. Thank you for the consultation. I will continue to follow the patient with you during her hospital stay.
[2018-12-21] MEDS: SODIUM CHLORIDE 0.9% 1,000 ML IV SCH ×4 (08:49→23:19)
[2018-12-21] MEDS: HYDROmorphone 0.5 MG/0.5 ML SYRINGE IVP PRN ×2 (08:52→20:46)
--- NOTE | 2018-12-21 09:35 | P.CNOR ---
History of Present Illness - [facility] Consult date: 12/21/18 Consult reason: fracture History of present illness: Patient is a 53-year-old female who presented to the hospital yesterday with multiple medical issues. She has a very extensive medical history. She states that she has been feeling sick of the last week or so. She apparently had a fall a few days ago due to the weakness, she states she passed out. She did fall on the left side. She admits to left ankle discomfort. Patient been hobbling around the last few days on the left ankle. Upon arrival to the hospital, imaging and lab tests were done. Images demonstrated a left distal fibular fracture. Patient was admitted under internal medicine with multiple medical consults place. I orthopedics was consulted with regards to the fibular fracture. Patient was evaluated at bedside today, she is resting comfortably. There is a posterior splint with Peter wrap on the ankle at this time. She notes some discomfort along the lateral aspect of the distal leg and ankle. She has been nonweightbearing on the ankle since being at the hospital. She denies any other orthopedic complaints at this time. Review of Systems Constitutional: Reports as per [facility] Past Medical History Past Medical History: Fibromyalgia, Musculoskeletal Disorder Additional Past Medical History / Comment(s): Migraines, Shrgren syndrome, DDD, MS History of Any Multi-Drug Resistant Organisms: None Reported Past Surgical History: Appendectomy, Hysterectomy, Orthopedic Surgery Additional Past Surgical History / Comment(s): right ankle Past Psychological History: No Psychological Hx Reported Smoking Status: Never smoker Past Alcohol Use History: None Reported Past Drug Use History: None Reported Medications and Allergies Home Medications Medication Instructions Recorded Confirmed Type predniSONE 10 mg PO QAM PRN 02/13/16 12/20/18 History traZODone HCL [Desyrel] 100 mg PO HS 02/13/16 12/20/18 History Ascorbic Acid [Vitamin C with Kathy 1 tab PO DAILY 09/27/17 12/20/18 History Hips] Carvedilol [Coreg] 25 mg PO BID 09/27/17 12/20/18 History Cholecalciferol [Vitamin D3] 5,000 unit PO DAILY 09/27/17 12/20/18 History Cyclobenzaprine [Flexeril] 10 mg PO TID PRN 09/27/17 12/20/18 History Esomeprazole Magnesium [NexIUM] 40 mg PO BID 09/27/17 12/20/18 History Ibuprofen 800 mg PO DAILY PRN 09/27/17 12/20/18 History Pilocarpine HCl [Salagen] 5 mg PO TID 09/27/17 12/20/18 History Teriflunomide [Aubagio] 14 mg PO HS 09/27/17 12/20/18 History Topiramate 50 mg PO BID 09/27/17 12/20/18 History Venlafaxine HCl ER [Effexor XR] 150 mg PO DAILY 09/27/17 12/20/18 History Vitamin B Complex 1 tab PO DAILY 09/27/17 12/20/18 History rOPINIRole HCL 10 mg PO HS 09/27/17 12/20/18 History Azilsartan Med/Chlorthalidone 1 tab PO QAM 12/20/18 12/20/18 History [Edarbyclor 40-25 mg Tablet] Calcium/Magnesium/Zinc 1 tab PO DAILY 12/20/18 12/20/18 History [Wyvbhnn-Ugmesyvnd-Kalk Tablet] Dextroamphetamine Sulfate 15 mg PO BID 12/20/18 12/20/18 History [Dexedrine] Allergies Allergy/AdvReac Type Severity Reaction Status Date / Time aspirin AdvReac Nausea Verified 12/20/18 16:56 Physical Examination Left lower extremity: Posterior splint is in good position and condition with an Peter bandage fixation. No significant soft tissue swelling present. Sensory exam to light touch both proximal distal splint are intact. She is able wiggle the toes with no difficulty. Results - Labs Labs: Abnormal Lab Results - Last 24 Hours (Table) 12/20/18 12/20/18 12/20/18 Range/Units 13:45 13:45 13:45 RBC 3.13 L (3.80-5.40) m/uL Hgb 9.8 L (11.4-16.0) gm/dL Hct 27.5 L (34.0-46.0) % Lymphocytes # 0.7 L (1.0-4.8) k/uL Sodium 134 L (137-145) mmol/L Potassium 3.4 L (3.5-5.1) mmol/L Chloride 95 L (98-107) mmol/L Carbon Dioxide 17 L (22-30) mmol/L BUN 72 H (7-17) mg/dL Creatinine 5.92 H (0.52-1.04) mg/dL Glucose 107 H (74-99) mg/dL Calcium (8.4-10.2) mg/dL Phosphorus (2.5-4.5) mg/dL Creatine Kinase 164 H (30-135) U/L Urine Appearance (Clear) Urine Protein (Negative) Urine Ketones (Negative) Ur Leukocyte Esterase (Negative) Urine RBC (0-5) /hpf Urine WBC (0-5) /hpf Ur Squamous Epith Cells (0-4) /hpf Urine Bacteria (None) /hpf Hyaline Casts (0-2) /lpf Urine Mucus (None) /hpf 12/20/18 12/20/18 12/21/18 Range/Units 13:45 15:00 07:18 RBC (3.80-5.40) m/uL Hgb (11.4-16.0) gm/dL Hct (34.0-46.0) % Lymphocytes # (1.0-4.8) k/uL Sodium (137-145) mmol/L Potassium (3.5-5.1) mmol/L Chloride 109 H (98-107) mmol/L Carbon Dioxide 18 L (22-30) mmol/L BUN 65 H (7-17) mg/dL Creatinine 3.98 H (0.52-1.04) mg/dL Glucose (74-99) mg/dL Calcium 8.0 L (8.4-10.2) mg/dL Phosphorus 6.9 H (2.5-4.5) mg/dL Creatine Kinase (30-135) U/L Urine Appearance Cloudy H (Clear) Urine Protein 1+ H (Negative) Urine Ketones Trace H (Negative) Ur Leukocyte Esterase Large H (Negative) Urine RBC 10 H (0-5) /hpf Urine WBC 20 H (0-5) /hpf Ur Squamous Epith Cells 13 H (0-4) /hpf Urine Bacteria Rare H (None) /hpf Hyaline Casts 39 H (0-2) /lpf Urine Mucus Rare H (None) /hpf Microbiology - Last 24 Hours (Table) 12/20/18 15:00 Urine Culture - Preliminary Urine,Voided H & H 12/20/18 Range/Units 13:45 Hgb 9.8 L (11.4-16.0) gm/dL Hct 27.5 L (34.0-46.0) % Result Diagrams: 12/20/18 13:45 12/21/18 07:18 - Diagnostic results Ankle/Foot x-ray: report reviewed, image reviewed Assessment and Plan Plan: Imaging: X-rays of the distal left leg and ankle were reviewed. Images demonstrated a displaced left distal third fibular shaft fracture. The ankle joint remains intact. Assessment: 1. Left distal third fibular shaft fracture 2. Status post fall from standing 3. Multiple medical comorbidities Plan: I was able to discuss the case including physical exam findings and imaging studies with my attending Dr. Mayfield. Utilize proceed with conservative management at this time. A prescription was placed for a Cam Walker boot. Patient states that she has the same boot at home. She'll continue with assembly associate ior splint at this time, her daughter plans to bring the boot later this afternoon. Once we have the boot, patient will be placed in that. Nonweightbearing, utilize crutches or walker for ambulation Pain control the primary medical service GI and DVT prophylaxis per medical recommendations Other medical specialty recommendations Orthopedic surgery needed at this time We will continue to follow patient during inpatient stay Time with Patient: Less than 30
--- NOTE | 2018-12-21 10:50 | US ---
EXAMINATION TYPE: US kidneys/renal and bladder DATE OF EXAM: 12/21/2018 COMPARISON: NONE CLINICAL HISTORY: isaura. nausea and vomiting/ dehydration/ diarrhea per patient EXAM MEASUREMENTS: Right Kidney: 10.5 x 6.0 x 5.2 cm Left Kidney: 10.8 x 7.2 x 5.2 cm Post Void Residual Volume: not assessed on inpatient Right Kidney: No hydronephrosis or masses seen Left Kidney: No hydronephrosis or masses seen Bladder: wnl Bilateral Jets seen: only left ureteral jet was seen within 3 minute observation There is no evidence for hydronephrosis at this point in time. No nephrolithiasis is seen. No juan luis s are identified. The urinary bladder is anechoic. Lobulation of the renal cortex incidentally noted . Bladder is limited by incomplete distention. IMPRESSION: No acute process.
[2018-12-21] MEDS ORDERED: CHLORTHALIDONE PO SCH (11:45)
[2018-12-21] MEDS ORDERED: AZILSARTAN MED PO SCH (11:45)
[2018-12-21] MEDS ORDERED: LOPERAMIDE 2 MG CAP PO STA (11:47)
--- NOTE | 2018-12-21 13:10 | P.HPIM ---
History of Present Illness H&P Date: 12/21/18 Chief Complaint: Nausea vomiting diarrhea This is a 53-year-old female patient of Dr. Pak with a past medical history of fibromyalgia, MS, Sjogren's, degenerative disc disease, hypertension. Patient states she has had nausea vomiting and diarrhea for one week. She also had a fall secondary to lightheadedness. She states she has vertigo secondary to her Sjogren's. Patient is also on chronic prednisone for fibromyalgia. She denies having sick contacts. She also complains of generalized fatigue. Patient came into [facility] emergency center for evaluation. She was found to have creatinine of 5.92 and BUN 72, sodium 134, potassium 3.4, chloride 95, CO2 17, blood sugar 107. White count was 4.8, hemoglobin 4.8, platelet count 439. Troponin negative. Lipase negative, CK 164. Magnesium 1.8 and phosphorus 6.9. Urine hCG nondetected. Due to fall, x-rays were done and patient was found to have a left distal fibular fracture. Patient was admitted to the [facility] floor and consults requested with nephrology and orthopedics. Review of Systems All systems: negative Constitutional: Reports fatigue, Reports malaise, Reports poor appetite, Reports weakness, Denies chills, Denies fever Eyes: denies blurred vision, denies pain Ears, nose, mouth and throat: Reports vertigo, Denies dysphagia, Denies headache, Denies nasal congestion, Denies nasal discharge, Denies sore throat Cardiovascular: Denies chest pain, Denies decreased exercise tolerance, Denies dyspnea on exertion, Denies edema, Denies irregular heart beat, Denies leg edema, Denies lightheadedness, Denies shortness of breath, Denies syncope Respiratory: Denies cough, Denies cough with sputum, Denies dyspnea, Denies excessive sputum, Denies hemoptysis, Denies home oxygen Gastrointestinal: Reports diarrhea, Reports loss of appetite, Reports nausea, Reports vomiting, Denies abdominal pain Genitourinary: Denies dysuria, Denies hematuria, Denies urgency, Denies urinary frequency Musculoskeletal: Denies frequent falls, Denies gait dysfunction, Denies myalgias Musculoskeletal: left: ankle pain Integumentary: Denies pruritus, Denies rash, Denies wounds Neurological: Denies aphasia, Denies change in mentation, Denies change in speech, Denies confusion, Denies numbness, Denies seizures, Denies weakness Psychiatric: Denies anxiety, Denies depression Endocrine: Denies fatigue, Denies weight change Past Medical History Past Medical History: Fibromyalgia, Musculoskeletal Disorder Additional Past Medical History / Comment(s): Migraines, Shrgren syndrome, DDD, MS History of Any Multi-Drug Resistant Organisms: None Reported Past Surgical History: Appendectomy, Hysterectomy, Orthopedic Surgery Additional Past Surgical History / Comment(s): right ankle Past Psychological History: No Psychological Hx Reported Smoking Status: Never smoker Past Alcohol Use History: None Reported Past Drug Use History: None Reported Medications and Allergies Home Medications Medication Instructions Recorded Confirmed Type predniSONE 10 mg PO QAM PRN 02/13/16 12/20/18 History traZODone HCL [Desyrel] 100 mg PO HS 02/13/16 12/20/18 History Ascorbic Acid [Vitamin C with Kathy 1 tab PO DAILY 09/27/17 12/20/18 History Hips] Carvedilol [Coreg] 25 mg PO BID 09/27/17 12/20/18 History Cholecalciferol [Vitamin D3] 5,000 unit PO DAILY 09/27/17 12/20/18 History Cyclobenzaprine [Flexeril] 10 mg PO TID PRN 09/27/17 12/20/18 History Esomeprazole Magnesium [NexIUM] 40 mg PO BID 09/27/17 12/20/18 History Ibuprofen 800 mg PO DAILY PRN 09/27/17 12/20/18 History Pilocarpine HCl [Salagen] 5 mg PO TID 09/27/17 12/20/18 History Teriflunomide [Aubagio] 14 mg PO HS 09/27/17 12/20/18 History Topiramate 50 mg PO BID 09/27/17 12/20/18 History Venlafaxine HCl ER [Effexor XR] 150 mg PO DAILY 09/27/17 12/20/18 History Vitamin B Complex 1 tab PO DAILY 09/27/17 12/20/18 History rOPINIRole HCL 10 mg PO HS 09/27/17 12/20/18 History Azilsartan Med/Chlorthalidone 1 tab PO QAM 12/20/18 12/20/18 History [Edarbyclor 40-25 mg Tablet] Calcium/Magnesium/Zinc 1 tab PO DAILY 12/20/18 12/20/18 History [Zczacqi-Bmmwnnvmy-Jate Tablet] Dextroamphetamine Sulfate 15 mg PO BID 12/20/18 12/20/18 History [Dexedrine] Allergies Allergy/AdvReac Type Severity Reaction Status Date / Time aspirin AdvReac Nausea Verified 12/20/18 16:56 Physical Exam Vitals: Vital Signs Temp Pulse Pulse Resp BP BP Pulse Ox 12/21/18 08:48 86 99/66 12/21/18 05:00 97.1 F L 98 16 99/55 98 12/20/18 19:27 96.8 F L 101 H 16 120/68 98 12/20/18 17:50 97.7 F 86 16 95/59 100 12/20/18 15:51 98 F 93 18 104/52 100 12/20/18 14:31 18 12/20/18 14:28 93 18 92/56 100 12/20/18 13:11 97.0 F L 101 H 18 105/57 98 Intake and Output 12/20/18 12/21/18 12/21/18 22:59 06:59 14:59 Intake Total 450 Balance 450 Intake: Intake, IV Titration 450 Amount Sodium Chloride 0.9% 1, 450 000 ml @ 150 mls/hr IV . Q6H40M [facility] Rx#:[id number] Other: Voiding Method Bedside Commode Bedside Commode # Voids 1 3 # Bowel Movements 3 Gen: This is a obese 53-year-old female. Patient is resting in bed and appears to be comfortable. She complains of generalized weakness. HEENT: Head is atraumatic, normocephalic. Pupils equal, round. Sclerae is anicteric. NECK: Supple. No JVD. No lymphadenopathy. No thyromegaly. LUNGS: Clear to auscultation. No wheezes or rhonchi. No intercostal retractions. HEART: Regular rate and rhythm. No murmur. ABDOMEN: Soft. Bowel sounds are present. No masses. No tenderness. EXTREMITIES: No pedal edema. No calf tenderness. Peter wrap in place to the left lower extremity. NEUROLOGICAL: Patient is awake, alert and oriented x3. Cranial nerves 2 through 12 are grossly intact. Results CBC & Chem 7: 12/20/18 13:45 12/21/18 07:18 Labs: Abnormal Lab Results - Last 24 Hours (Table) 12/20/18 12/20/18 12/20/18 Range/Units 13:45 13:45 13:45 RBC 3.13 L (3.80-5.40) m/uL Hgb 9.8 L (11.4-16.0) gm/dL Hct 27.5 L (34.0-46.0) % Lymphocytes # 0.7 L (1.0-4.8) k/uL Sodium 134 L (137-145) mmol/L Potassium 3.4 L (3.5-5.1) mmol/L Chloride 95 L (98-107) mmol/L Carbon Dioxide 17 L (22-30) mmol/L BUN 72 H (7-17) mg/dL Creatinine 5.92 H (0.52-1.04) mg/dL Glucose 107 H (74-99) mg/dL Calcium (8.4-10.2) mg/dL Phosphorus (2.5-4.5) mg/dL Creatine Kinase 164 H (30-135) U/L Urine Appearance (Clear) Urine Protein (Negative) Urine Ketones (Negative) Ur Leukocyte Esterase (Negative) Urine RBC (0-5) /hpf Urine WBC (0-5) /hpf Ur Squamous Epith Cells (0-4) /hpf Urine Bacteria (None) /hpf Hyaline Casts (0-2) /lpf Urine Mucus (None) /hpf 12/20/18 12/20/18 12/21/18 Range/Units 13:45 15:00 07:18 RBC (3.80-5.40) m/uL Hgb (11.4-16.0) gm/dL Hct (34.0-46.0) % Lymphocytes # (1.0-4.8) k/uL Sodium (137-145) mmol/L Potassium (3.5-5.1) mmol/L Chloride 109 H (98-107) mmol/L Carbon Dioxide 18 L (22-30) mmol/L BUN 65 H (7-17) mg/dL Creatinine 3.98 H (0.52-1.04) mg/dL Glucose (74-99) mg/dL Calcium 8.0 L (8.4-10.2) mg/dL Phosphorus 6.9 H (2.5-4.5) mg/dL Creatine Kinase (30-135) U/L Urine Appearance Cloudy H (Clear) Urine Protein 1+ H (Negative) Urine Ketones Trace H (Negative) Ur Leukocyte Esterase Large H (Negative) Urine RBC 10 H (0-5) /hpf Urine WBC 20 H (0-5) /hpf Ur Squamous Epith Cells 13 H (0-4) /hpf Urine Bacteria Rare H (None) /hpf Hyaline Casts 39 H (0-2) /lpf Urine Mucus Rare H (None) /hpf Microbiology - Last 24 Hours (Table) 12/20/18 15:00 Urine Culture - Preliminary Urine,Voided Thrombosis Risk Factor Assmnt - DVT/VTE Prophylaxis DVT/VTE Prophylaxis: Pharmacologic Prophylaxis ordered - Choose All That Apply Any of the Below Risk Factors Present?: Yes Each Factor Represents 1 point: Age 41-60 years, Obesity (BMI >25) Other Risk Factors: No Other congenital or acquired thrombophilia - If yes, enter type in comment: No Thrombosis Risk Factor Assessment Total Risk Factor Score: 2 Thrombosis Risk Factor Assessment Level: Low Risk Assessment and Plan Plan: 1. Acute kidney injury and metabolic acidosis secondary to vomiting and diarrhea along with diuretics and ARB. Patient also received Toradol in the emergency center. A sliding creatinine is 0.8 from January 2018. Consult with Dr. Christianson appreciated. IV fluids at 125 mL per hour. Renal ultrasound and repeat electrolytes and renal function tomorrow. Hold antihypertensive. Cortisol level ordered. Patient is currently on renal diet. 2. Electrolyte abnormalities with hypokalemia secondary to vomiting and diarrhea. 3. Distal left fibular fracture status post fall from vertigo secondary to Sjogren's and dehydration. Orthopedic consult appreciated. Boot to be obtained patient to be nonweightbearing, utilize crutches or walker for ambulation. 4. Vomiting and diarrhea most likely secondary to viral gastroenteritis. C. difficile toxin negative. Imodium as needed. Zofran IV every 8 hours as needed for vomiting. 5. Hypertensions. Patient will be resumed on Coreg 25 mg twice daily, hold for systolic blood pressure less than 110. Hold azilsartan/chlorthalidone. 6. Sjogren's. Continue pilocarpine 5 mg 3 times daily. 7. Multiple sclerosis. Continue teriflunamide 14 mg at bedtime. 8. Migraine headaches. Continue Topamax 50 mg twice daily. 9. Recurrent depression. Continue Effexor X are 150 mg daily, trazodone 100 mg at bedtime. 10. DVT prophylaxis. Lovenox subcu. 11. GI prophylaxis. Pepcid. Patient will be admitted to the hospital for a minimum of 2 night stay. Discharge plan: Most likely home in the next 24-48 hours. Impression and plan of care have been directed as dictated by the signing lillian sician. Cici Chatman nurse practitioner acting as scribe for signing physician.
[2018-12-21] MEDS: PILOCARPINE 5 MG TAB PO SCH ×2 (15:24→20:42)
[2018-12-21] MEDS: PANTOPRAZOLE 40 MG TABLET PO SCH (17:56)
[2018-12-21] MEDS: LOPERAMIDE 2 MG CAP PO PRN ×2 (17:56→20:46)
[2018-12-21] MEDS: CARVEDILOL 12.5 MG TAB PO SCH (17:56)
[2018-12-21] MEDS: traZODone HCL 100 MG TAB PO SCH (20:42)
[2018-12-21] MEDS: TOPIRAMATE 25 MG TAB PO SCH (20:42)
[2018-12-21] MEDS ORDERED: rOPINIRole HCL 4 MG TABLET PO SCH (21:00)
[2018-12-21] MEDS ORDERED: DEXTROAMPHETAMINE SULFATE PO SCH (21:00)
[2018-12-22 05:30] VITALS: TEMP 97.5
[2018-12-22 08:19] LABS: Calcium 8.3 mg/dL (8.4-10.2); Magnesium 1.7 mg/dL (1.6-2.3); Potassium 3.4 mmol/L (3.5-5.1)
[2018-12-22] MEDS ORDERED: POTASSIUM CHLORIDE ER 20 MEQ TAB.ER PO ONE (08:53)
[2018-12-22] MEDS: PILOCARPINE 5 MG TAB PO SCH (08:56)
[2018-12-22] MEDS: TOPIRAMATE 25 MG TAB PO SCH (08:56)
[2018-12-22] MEDS: PANTOPRAZOLE 40 MG TABLET PO SCH (08:57)
[2018-12-22] MEDS ORDERED: SODIUM CHLORIDE 0.9% 1,000 ML IV SCH (09:00)
[2018-12-22] MEDS ORDERED: ENOXAPARIN 40 MG/0.4 ML SYRINGE SQ SCH (09:00)
[2018-12-22] MEDS ORDERED: FAMOTIDINE 20 MG TAB PO SCH (09:00)
[2018-12-22] MEDS ORDERED: VENLAFAXINE HCL ER 150 MG CAP PO SCH (09:00)
[2018-12-22] MEDS: HYDROmorphone 0.5 MG/0.5 ML SYRINGE IVP PRN (09:06)
--- NOTE | 2018-12-22 09:42 | P.PN ---
Subjective Progress Note Date: 12/22/18 Principal diagnosis: Left distal fibular shaft fracture Patient evaluated at bedside, she is resting comfortably. She does have the Cam Walker boot with her today. Her pain is well-controlled. She remains nonweightbearing. Objective - Vital Signs Vital signs: Vital Signs Temp 97.5 F L 12/22/18 05:00 Pulse 85 12/22/18 05:00 Resp 16 12/22/18 05:00 BP 122/84 12/22/18 05:00 Pulse Ox 97 12/22/18 05:00 Intake & Output 12/21/18 12/22/18 12/22/18 18:59 06:59 18:59 Intake Total 2089 Balance 2089 Intake: Intake, IV Titration 1500 Amount Sodium Chloride 0.9% 1, 1500 000 ml @ 125 mls/hr IV . Q8H [facility] Rx#:[id number] Oral 590 Other: Voiding Method Bedside Commode Bedside Commode # Voids 5 3 # Bowel Movements 5 1 - Exam Left lower extremity: Initial posterior splint was removed today bedside. Skin is in good condition and position, no significant areas of swelling erythema. There are no open lesions. She has moderate tenderness with palpation along the distal fibula. She is able wiggle the toes no difficulty. Her calf is soft, no tenderness with palpation. Distal neurovascular exam is intact. - Labs CBC & Chem 7: 12/20/18 13:45 12/22/18 07:44 Labs: Abnormal Lab Results - Last 24 Hours (Table) 12/22/18 Range/Units 07:44 Potassium 3.4 L (3.5-5.1) mmol/L Chloride 117 H (98-107) mmol/L Carbon Dioxide 19 L (22-30) mmol/L BUN 39 H (7-17) mg/dL Creatinine 1.63 H (0.52-1.04) mg/dL Calcium 8.3 L (8.4-10.2) mg/dL Microbiology - Last 24 Hours (Table) 12/20/18 15:00 Urine Culture - Final Urine,Voided Assessment and Plan Plan: Assessment: 1. Left distal third fibular shaft fracture 2. Status post fall from standing 3. Multiple medical comorbidities Plan: I did fit the patient today with the Cam Walker boot at bedside. She will wear this 24 hours a day sides showering. She will remain nonweightbearing, utilize crutches or walker Pain control the primary medical service GI and DVT prophylaxis per medical recommendations Other medical specialty recommendations Plan for follow-up in the outpatient setting in 2 weeks for x-ray and physical exam Time with Patient: Less than 30
--- NOTE | 2018-12-22 09:49 | P.PN ---
Subjective Patient is seen in follow-up for acute kidney injury. Patient's creatinine on admission was 5.92 and is down to 1.63 today. Patient's baseline creatinine is near 0.8 from January 2018. Appetite is gradually improving. No further vomiting or diarrhea. No edema. Good urine output. Vital signs are stable. General: The patient appeared well nourished and normally developed. HEENT: Head exam is unremarkable. Neck is without jugular venous distension. LUNGS: Lungs are clear to auscultation and percussion. Breath sounds decreased. HEART: Rate and Rhythm are regular. First and second heart sounds normal. No murmurs, rubs or gallops. ABDOMEN: Abdominal exam reveals normal bowel sounds. Non-tender and non- distended. No evidence of peritonitis. EXTREMITITES: No clubbing, cyanosis, or edema. Objective - Vital Signs Vital signs: Vital Signs Temp 97.5 F L 12/22/18 05:00 Pulse 85 12/22/18 05:00 Resp 16 12/22/18 05:00 BP 122/84 12/22/18 05:00 Pulse Ox 97 12/22/18 05:00 Intake & Output 12/21/18 12/22/18 12/22/18 18:59 06:59 18:59 Intake Total 2089 Balance 2089 Intake: Intake, IV Titration 1500 Amount Sodium Chloride 0.9% 1, 1500 000 ml @ 125 mls/hr IV . Q8H [facility] Rx#:[id number] Oral 590 Other: Voiding Method Bedside Commode Bedside Commode # Voids 5 3 # Bowel Movements 5 1 - Labs CBC & Chem 7: 12/20/18 13:45 12/22/18 07:44 Labs: Abnormal Lab Results - Last 24 Hours (Table) 12/22/18 Range/Units 07:44 Potassium 3.4 L (3.5-5.1) mmol/L Chloride 117 H (98-107) mmol/L Carbon Dioxide 19 L (22-30) mmol/L BUN 39 H (7-17) mg/dL Creatinine 1.63 H (0.52-1.04) mg/dL Calcium 8.3 L (8.4-10.2) mg/dL Microbiology - Last 24 Hours (Table) 12/20/18 15:00 Urine Culture - Final Urine,Voided Assessment and Plan Plan: Assessment: 1. Acute kidney injury mostly prerenal secondary to intravascular volume depletion from vomiting and diarrhea and further worsened with the use of diuretics and ARB. Patient also received a dose of Toradol in the ER. Baseline creatinine near 1 from January 2018. Creatinine was 5.92 this admission and is down to 1.63 today. No evidence of hydronephrosis noted on renal ultrasound. 2. Hypokalemia from poor oral intake and GI losses. 3. Nausea vomiting and diarrhea. Possibly viral gastroneuritis. C. diff has been negative. Symptoms better. 4. Metabolic acidosis secondary to acute kidney injury and diarrhea. Improving. 5. Hypomagnesemia from poor oral intake. 6. Hypotension. Blood pressure stable this morning. Patient's a.m. cortisol level is noted to be low. Will need to be further worked up for adrenal insufficiency. Consider endocrinology consult. Plan: I will decrease rate of normal saline to 75 mL an hour. Encourage oral intake. Repeat electrolytes in the morning. Continue to hold antihypertensives. Replace potassium. 40 mEq today. Replace magnesium. 2 g IV today.
[2018-12-22] MEDS: MAGNESIUM SULFATE-D5W PMX 1 GM in DEXTROSE/WATER 1 100ML.BAG IVPB SCH ×2 (10:09→11:43)
[2018-12-22] MEDS: CARVEDILOL 12.5 MG TAB PO SCH (10:38)
[2018-12-22 12:04] VITALS: BP 132/78; PULSE 101; RESP 15
[2018-12-22] MEDS ORDERED: predniSONE 20 MG TAB PO STA (12:54)
--- NOTE | 2018-12-22 13:21 | P.DS ---
Providers Date of admission: 12/20/18 16:29 Attending physician: Chiara Saeed MD Consults: 12/20/18 16:27 Consult Physician Routine Consulting Provider: Charles Christianson Consult Reason/Comments: RENIIER Do you want consulting provider notified?: Yes Consult Physician Routine Consulting Provider: Devan Mayfield Consult Reason/Comments: left fibula fracture Do you want consulting provider notified?: Yes Primary care physician: [facility] Course: This is 53 years old female with history of multiple sclerosis, fibromyalgia and complicated past medical history who presented to the emergency department after sustaining fall at home and near syncope. Patient denied loss of consciousness and said that she was extremely dizzy and lightheaded for the last week secondary to nausea vomiting and diarrhea. C. diff was tested and found to be negative patient on presentation had acute kidney injury with creatinine above 5 that responded well to fluid management and evaluated by nephrology who recommended aggressive IV fluids and hydration and patient was tolerating diet without difficulty with creatinine improved to 3 and then 1.6 at the time of the discharge nephrology cleared the patient for discharge from the medical standpoint and cortisol level was found to be 2 which felt to be related to her sickness but blood pressure was 138/78 at the time of the discharge patient was ambulating about difficulty and was seen by or so who recommended surgical boot to be wearing all the time until patient seen by or so outpatient patient elected to go home and follow up with her primary care physician next week after providing prednisone 60 mg in the hospital and asking patients to take prednisone 10 mg daily until she seen by her primary care physician to repeat her cortisol level and weaning slowly and gradually an outpatient basis patient asked to continue her home medication as prescribed continue with oral medication and encourage oral intake as to return to the hospital if she experiences any deterioration. Patient was discharged in stable condition Patient Condition at Discharge: Fair Plan - Discharge Summary Discharge Rx Participant: No New Discharge Prescriptions: No Action traZODone HCL [Desyrel] 100 mg PO HS predniSONE 10 mg PO QAM PRN PRN Reason: Inflammation Teriflunomide [Aubagio] 14 mg PO HS Vitamin B Complex 1 tab PO DAILY Ascorbic Acid [Vitamin C with Kathy Hips] 1 tab PO DAILY Esomeprazole Magnesium [NexIUM] 40 mg PO BID Cyclobenzaprine [Flexeril] 10 mg PO TID PRN PRN Reason: Muscle Pain Carvedilol [Coreg] 25 mg PO BID Venlafaxine HCl ER [Effexor XR] 150 mg PO DAILY rOPINIRole HCL 10 mg PO HS Pilocarpine HCl [Salagen] 5 mg PO TID Ibuprofen 800 mg PO DAILY PRN PRN Reason: Pain Topiramate 50 mg PO BID Cholecalciferol [Vitamin D3] 5,000 unit PO DAILY Calcium/Magnesium/Zinc [Xtaxxrq-Fdafyepzb-Piwc Tablet] 1 tab PO DAILY Dextroamphetamine Sulfate [Dexedrine] 15 mg PO BID Azilsartan Med/Chlorthalidone [Edarbyclor 40-25 mg Tablet] 1 tab PO QAM Discharge Medication List predniSONE 10 mg PO QAM PRN 02/13/16 [History] traZODone HCL [Desyrel] 100 mg PO HS 02/13/16 [History] Ascorbic Acid [Vitamin C with Kathy Hips] 1 tab PO DAILY 09/27/17 [History] Carvedilol [Coreg] 25 mg PO BID 09/27/17 [History] Cholecalciferol [Vitamin D3] 5,000 unit PO DAILY 09/27/17 [History] Cyclobenzaprine [Flexeril] 10 mg PO TID PRN 09/27/17 [History] Esomeprazole Magnesium [NexIUM] 40 mg PO BID 09/27/17 [History] Ibuprofen 800 mg PO DAILY PRN 09/27/17 [History] Pilocarpine HCl [Salagen] 5 mg PO TID 09/27/17 [History] Teriflunomide [Aubagio] 14 mg PO HS 09/27/17 [History] Topiramate 50 mg PO BID 09/27/17 [History] Venlafaxine HCl ER [Effexor XR] 150 mg PO DAILY 09/27/17 [History] Vitamin B Complex 1 tab PO DAILY 09/27/17 [History] rOPINIRole HCL 10 mg PO HS 09/27/17 [History] Azilsartan Med/Chlorthalidone [Edarbyclor 40-25 mg Tablet] 1 tab PO QAM 12/20/18 [History] Calcium/Magnesium/Zinc [Imwptki-Wfqlexgfe-Gjfv Tablet] 1 tab PO DAILY 12/20/18 [History] Dextroamphetamine Sulfate [Dexedrine] 15 mg PO BID 12/20/18 [History] Follow up Appointment(s)/Referral(s): Devan Mayfield DO [Doctor of Osteopathic Medicine] - 2 Weeks Sujit Pak DO [Primary Care Provider] - 1-2 days Activity/Diet/Wound Care/Special Instructions: Discharge instructions: 1. Nonweightbearing left lower extremity 2. Utilize a Cam Walker boot at all times, utilize crutches or walker 3. Elevate often 4. Follow-up with advanced orth[facility]ics in 2 weeks
== END 2018-12-22 14:23 | disposition home or self-care (01) | DRG 683 ==
LOC: EC 13:06 → 3NMEDONC 16:29
PROVIDERS: ADMIT Internal Medicine; ATTEND Internal Medicine
DX: N17.9 Acute kidney failure, unspecified (principal); E87.2 Acidosis; F33.9 Major depressive disorder, recurrent, unspecified; A08.4 Viral intestinal infection, unspecified; D64.9 Anemia, unspecified; E83.39 Other disorders of phosphorus metabolism; E83.42 Hypomagnesemia; E86.0 Dehydration; E87.6 Hypokalemia; G35 Multiple sclerosis; G43.909 Migraine, unspecified, not intractable, without status migrainosus; I10 Essential (primary) hypertension; M35.00 Sjogren syndrome, unspecified; M79.7 Fibromyalgia; S82.832A Other fracture of upper and lower end of left fibula, initial encounter for closed fracture; W19.XXXA Unspecified fall, initial encounter; Y92.009 Unspecified place in unspecified non-institutional (private) residence as the place of occurrence of the external cause; Z79.52 Long term (current) use of systemic steroids; Z79.899 Other long term (current) drug therapy; Z90.710 Acquired absence of both cervix and uterus; Z88.6 Allergy status to analgesic agent; R42 Dizziness and giddiness
CPT/HCPCS: 36415; 71046; 76770; 80048; 80053; 81001; 81025; 82150; 82533; 82550; 83690; 83735; 84100; 84484; 85025; 87086; 87324; 93005; 96361; 96374; 96375; 99285

== ENCOUNTER → 2019-02-20 | Outpatient (CLI) | payer MEDICARE ==
[2019-02-20 17:00] LABS: HCT 31.7 % (34.0-46.0); HGB 10.4 gm/dL (11.4-16.0); MCH 31.5 pg (25.0-35.0); MCHC 32.9 g/dL (31.0-37.0); MCV 95.9 fL (80.0-100.0); Mean Platelet Volume 6.9; Platelet Count 389 k/uL (150-450); WBC 8.8 k/uL (3.8-10.6)
[2019-02-20 17:12] LABS: D-Dimer 0.46 mg/L FEU (<0.60); INR 0.9 (<1.2); Prothrombin Time 9.5 sec (9.0-12.0)
[2019-02-21 01:07] LABS: African American GFR (CKD) 60.6 (60.0-200.0); Albumin 4.6 g/dL (3.80-4.90); Albumin/Globulin Ratio 2.3 (1.60-3.17); Anion Gap 10.1 mmol/L (4.00-12.00); Calcium 9.9 mg/dL (8.7-10.3); Carbon Dioxide 26.9 mmol/L (21.6-31.8); Potassium 4.6 mmol/L (3.5-5.5); Total Bilirubin 0.3 mg/dL (0.2-1.2); Total Protein 6.6 g/dL (6.2-8.2)
== END | disposition home or self-care (01) ==
LOC: LABWHC1 15:40
PROVIDERS: ATTEND Family Medicine
DX: N28.9 Disorder of kidney and ureter, unspecified (principal)
CPT/HCPCS: 36415; 80053; 85027; 85379; 85610

== ENCOUNTER → 2019-03-23 | Outpatient (CLI) | payer MEDICARE ==
[2019-03-23 23:12] LABS: African American GFR (CKD) 60.6 (60.0-200.0); Albumin 4.4 g/dL (3.80-4.90); BUN/Creat Ratio 17.5 Ratio (12.00-20.00); Calcium 9.8 mg/dL (8.7-10.3); Phosphorus 2.8 mg/dL (2.4-5.1); Potassium 3.8 mmol/L (3.5-5.5)
== END | disposition home or self-care (01) ==
LOC: LABWHC1 11:45
PROVIDERS: ATTEND Physician Assistant
DX: N18.3 Chronic kidney disease, stage 3 (moderate) (principal)
CPT/HCPCS: 36415; 80069

== ENCOUNTER → 2019-04-10 | Outpatient (CLI) | payer MEDICARE ==
--- NOTE | 2019-04-10 17:23 | US ---
EXAMINATION TYPE: US kidneys/renal and bladder DATE OF EXAM: 04/10/2019 COMPARISON: NONE CLINICAL HISTORY: R10.9 FLANK PAIN. History of renal failure, CKD stage III, back pain EXAM MEASUREMENTS: Right Kidney: 10.1 x 4.1 x 4.4 cm Left Kidney: 10.1 x 5.2 x 4.0 cm Right Kidney: possible stone mid = 0.4cm Left Kidney: no evidence of hydronephrosis Bladder: appears wnl Bilateral Jets seen: yes There is no evidence for hydronephrosis at this point in time. No significant cortical renal thinnin g in this patient with chronic medical renal disease. Cortical medullary differentiation is maintaine d at this time. No nephrolithiasis is seen on the left. No masses are identified. The urinary bladd er is anechoic. Bilateral ureteral jets are seen. IMPRESSION: No hydronephrosis of either kidney. Nonshadowing hyperdense focus of the right kidney may relate to a small 4 mm nonobstructing calculus.
== END | disposition home or self-care (01) ==
LOC: RADUSWWP 15:53
PROVIDERS: ATTEND Internal Medicine
DX: N20.0 Calculus of kidney (principal)
CPT/HCPCS: 76770

== ENCOUNTER → 2019-04-19 | Outpatient (CLI) | payer MEDICARE ==
--- NOTE | 2019-04-19 23:25 | MR ---
EXAMINATION TYPE: MR brain wo con DATE OF EXAM: 04/19/2019 COMPARISON: 01/19/2018 HISTORY: Multiple sclerosis, vertigo Standard multiplanar, multisequence MRI departmental protocol Multiplanar, multisequence images of the brain were acquired. Diffusion weighted imaging was performe d. FINDINGS: Ventricles have normal size. There is no mass effect nor midline shift. There is no sign of intracranial hemorrhage. There are scattered small white matter high signal foci that mostly measure 3 to 4 mm at the weems-white matter junction of both cerebral hemispheres near the frontal lobes. Tot al number is proximally 5. Corpus callosum appears intact. Sella turcica appears normal. There is a 2 mm focus of increased signal in the anitra on the right side. IMPRESSION: Frontal lobe white matter high signal foci unchanged. Possible new tiny focus increased s ignal in the anitra on the right side compared to old exam. Findings are nonspecific and could consider both small vessel ischemia and demyelinating disease. No evidence of cortical infarct.
== END | disposition home or self-care (01) ==
LOC: RADMRIMAIN 13:49
PROVIDERS: ATTEND Family Medicine
DX: G35 Multiple sclerosis (principal)
CPT/HCPCS: 70551

== ENCOUNTER → 2019-07-30 | Outpatient (CLI) | payer MEDICARE ==
[2019-07-31 00:01] LABS: African American GFR (CKD) 67.3 (60.0-200.0); Albumin 4.7 g/dL (3.80-4.90); Anion Gap 7.6 mmol/L (4.00-12.00); BUN/Creat Ratio 26.36 Ratio (12.00-20.00); Carbon Dioxide 29.4 mmol/L (21.6-31.8); Non-African American GFR(CKD) 58.1 (60.0-200.0); Phosphorus 2.8 mg/dL (2.4-5.1)
[2019-07-31 00:08] LABS: T4, Free (Free Thyroxine) 0.9 ng/dL (0.80-1.80)
== END | disposition home or self-care (01) ==
LOC: LABWHC1 15:21
PROVIDERS: ATTEND Physician Assistant
DX: N18.3 Chronic kidney disease, stage 3 (moderate) (principal); G35 Multiple sclerosis
CPT/HCPCS: 36415; 80069; 84439; 84443

== ENCOUNTER → 2019-11-22 | Outpatient (CLI) | payer MEDICARE ==
--- NOTE | 2019-11-22 19:32 | XR ---
Lumbosacral spine HISTORY: Hip pain, back pain 5 views of lumbosacral spine There is a levoscoliosis centered at approximately L2-3 level. There is a rotatory component. Lumbar vertebral bodies show preserved height and bone mineralization. Surgical clips present in the pelvis. No evident spondylolysis, minimal anterolisthesis grade 1 L5-S1. There is disc height loss suspected L5-S1. Sclerosis present in the posterior elements is compatible with facet arthropathy. Multilevel spondylosis is present. Bone mineralization is mildly reduced. IMPRESSION: Degenerative disc disease, facet arthropathy, osteopenia and scoliosis.
--- NOTE | 2019-11-22 19:35 | XR ---
Bilateral hips HISTORY: Hip pain 2 views of each hip submitted on a total of 4 images No comparisons There is extensive callus formation at the superior and inferior pubic rami on the right and left con sistent with prior fractures and healing, some persistent lucency could represent pseudarthrosis at t hese levels. The hip joints show normal appearance. IMPRESSION: Bilateral pubic ramus fractures of indeterminate age and healing, correlate for history o f trauma.
== END | disposition home or self-care (01) ==
LOC: RADXRMAIN 15:42
PROVIDERS: ATTEND Family Medicine
DX: M51.37 Other intervertebral disc degeneration, lumbosacral region (principal); M47.897 Other spondylosis, lumbosacral region; M85.80 Other specified disorders of bone density and structure, unspecified site; M41.9 Scoliosis, unspecified; S32.592A Other specified fracture of left pubis, initial encounter for closed fracture; M54.5 Low back pain
CPT/HCPCS: 72110; 73521

== ENCOUNTER 2019-11-25 15:54 | Emergency (ER) | payer MEDICARE ==
[2019-11-25 16:02] VITALS: TEMP 97.9
[2019-11-25] MEDS ORDERED: SODIUM CHLORIDE 0.9% 1,000 ML IV STA (16:38)
[2019-11-25 17:00] LABS: Basophils % (A) 0 %; Eosinophils % (A) 0 %; HCT 30.7 % (34.0-46.0); HGB 10.3 gm/dL (11.4-16.0); Lymphocytes # (A) 0.7 k/uL (1.0-4.8); Lymphocytes % (A) 7 %; MCHC 33.7 g/dL (31.0-37.0); MCV 94.9 fL (80.0-100.0); Mean Platelet Volume 6.8; Monocytes # (A) 0.5 k/uL (0-1.0); Monocytes % (A) 5 %; Neutrophils # (A) 9.1 k/uL (1.3-7.7); Neutrophils % (A) 87 %; Platelet Count 407 k/uL (150-450); RBC 3.23 m/uL (3.80-5.40); RDW 14.3 % (11.5-15.5); WBC 10.5 k/uL (3.8-10.6)
[2019-11-25 17:09] LABS: Albumin 4.1 g/dL (3.5-5.0); Calcium 10.1 mg/dL (8.4-10.2); Potassium 3.3 mmol/L (3.5-5.1); Total Bilirubin 0.4 mg/dL (0.2-1.3); Total Protein 6.9 g/dL (6.3-8.2)
--- NOTE | 2019-11-25 17:09 | ED ---
General Adult HPI - General Chief complaint: Recheck/Abnormal Lab/Rx Stated complaint: L hip fracture Source: patient, RN notes reviewed Mode of arrival: wheelchair Limitations: no limitations - History of Present Illness Initial comments: 54-year-old female with a past medical history of migraines, Sjogren's, multiple sclerosis, fibromyalgia presents to the emergency department for a chief complaint of hip pain. Patient states she has had left sided pelvis pain for the past several months. States that she fell in the yard a few months ago and has had this pain ever since. States she finally saw her doctor about 3 days ago who ordered an x-ray and was told she had a hip fracture. Patient states she was also told her kidney function is elevated. States that she did have kidney failure about a year ago secondary to dehydration from nausea vomiting diarrhea. However she does not think she is dehydrated as of now.Patient has no other complaints at this time including shortness of breath, chest pain, abdominal pain, nausea or vomiting, headache, or visual changes. - Related Data Home Medications Medication Instructions Recorded Confirmed predniSONE 10 mg PO TID 02/13/16 11/25/19 traZODone HCL [Desyrel] 100 mg PO HS 02/13/16 11/25/19 Cholecalciferol [Vitamin D3] 1,000 unit PO W/SUPPER 09/27/17 11/25/19 Cyclobenzaprine [Flexeril] 10 mg PO HS 09/27/17 11/25/19 Esomeprazole Magnesium [NexIUM] 40 mg PO BID 09/27/17 11/25/19 Pilocarpine HCl [Salagen] 5 mg PO TID 09/27/17 11/25/19 Teriflunomide [Aubagio] 14 mg PO HS 09/27/17 11/25/19 Venlafaxine HCl ER [Effexor XR] 150 mg PO W/SUPPER 09/27/17 11/25/19 Vitamin B Complex 1 tab PO DAILY 09/27/17 11/25/19 rOPINIRole HCL 10 mg PO HS 09/27/17 11/25/19 Azilsartan Med/Chlorthalidone 1 tab PO DAILY 12/20/18 11/25/19 [Edarbyclor 40-25 mg Tablet] Dextroamphetamine Sulfate 15 mg PO BID 06/06/19 05/11/20 [Dexedrine] Ascorbic Acid [Vitamin C] 500 mg PO BID 11/25/19 11/25/19 Calcium/Magnesium/Zinc/Vitamin D 1 tab PO W/SUPPER 11/25/19 11/25/19 Diclofenac Epolamine [Flector 1.3% 1 patch TRANSDERM Q12H 11/25/19 11/25/19 Patch] Ferrous Sulfate [Feosol] 325 mg PO W/SUPPER 11/25/19 11/25/19 Topiramate [Topamax] 50 mg PO BID 11/25/19 11/25/19 Previous Rx's Medication Instructions Recorded Cephalexin [Keflex] 500 mg PO TID #30 cap 11/25/19 HYDROcodone/APAP 5-325MG [[place] 1 tab PO Q6HR PRN #10 tab 11/25/19 5-325] Allergies Allergy/AdvReac Type Severity Reaction Status Date / Time aspirin AdvReac Nausea Verified 11/25/19 17:25 Review of Systems ROS Statement: Those systems with pertinent positive or pertinent negative responses have been documented in the HPI. ROS Other: All systems not noted in ROS Statement are negative. Past Medical History Past Medical History: Fibromyalgia, Musculoskeletal Disorder Additional Past Medical History / Comment(s): Migraines, Shrgren syndrome, DDD, MS History of Any Multi-Drug Resistant Organisms: None Reported Past Surgical History: Appendectomy, Hysterectomy, Orthopedic Surgery Additional Past Surgical History / Comment(s): right ankle Past Psychological History: No Psychological Hx Reported Smoking Status: Never smoker Past Alcohol Use History: None Reported Past Drug Use History: None Reported General Exam Limitations: no limitations General appearance: alert, in no apparent distress Head exam: Present: atraumatic, normocephalic, normal inspection Eye exam: Present: normal appearance, PERRL, EOMI. Absent: scleral icterus, conjunctival injection, periorbital swelling ENT exam: Present: normal exam, mucous membranes moist Neck exam: Present: normal inspection, full ROM. Absent: tenderness, meningismus, lymphadenopathy Respiratory exam: Present: normal lung sounds bilaterally. Absent: respiratory distress, wheezes, rales, rhonchi, stridor Cardiovascular Exam: Present: regular rate, normal rhythm, normal heart sounds. Absent: systolic murmur, diastolic murmur, rubs, gallop, clicks GI/Abdominal exam: Present: soft, normal bowel sounds. Absent: distended, tenderness, guarding, rebound, rigid Extremities exam: Present: other (DP pulses 2+ in lower extremities bilaterally) Course Vital Signs 11/25/19 15:59 Temperature 97.9 F Pulse Rate 118 H Respiratory 18 Rate Blood Pressure 131/87 O2 Sat by Pulse 99 Oximetry Medical Decision Making - Medical Decision Making Vitals are stable. Patient initially tachycardic on presentation however this did improve throughout her stay. CBC is unremarkable. Hemoglobin of 10.3 appears to be chronic. CMP does show some mild hypokalemia of 3.3, orally replaced. Magnesium normal 1.7. Today patient's BUN is 44 which is improved from 63 3 days ago. Creatinine 1.0 which is improved from 2.03 days ago. Patient states she has been drinking plenty of water. This does appear to be prerenal. She was given a liter of fluids in the emergency department. She does not want to stay in the hospital. I did review patient's x-rays and pelvic x-ray does show bilateral pubic ramus fractures of indeterminate age and healing. This would correlate with patient's injuries a few months ago. Patient states she is ambulate at home although it is painful. States she has been using a cane and can use crutches. Patient will be given [place] and an orthopedic follow-up. She'll return for any worsening symptoms. I did review patient's urine culture from 3 days ago from her primary care and she did have Klebsiella UTI. She will be treated with Keflex. - Lab Data Result diagrams: 11/25/19 16:32 11/25/19 16:32 Lab Results 11/25/19 11/25/19 11/25/19 Range/Units 16:32 16:32 16:32 WBC 10.5 (3.8-10.6) k/uL RBC 3.23 L (3.80-5.40) m/uL Hgb 10.3 L (11.4-16.0) gm/dL Hct 30.7 L (34.0-46.0) % MCV 94.9 (80.0-100.0) fL MCH 32.0 (25.0-35.0) pg MCHC 33.7 (31.0-37.0) g/dL RDW 14.3 (11.5-15.5) % Plt Count 407 (150-450) k/uL Neutrophils % 87 % Lymphocytes % 7 % Monocytes % 5 % Eosinophils % 0 % Basophils % 0 % Neutrophils # 9.1 H (1.3-7.7) k/uL Lymphocytes # 0.7 L (1.0-4.8) k/uL Monocytes # 0.5 (0-1.0) k/uL Eosinophils # 0.0 (0-0.7) k/uL Basophils # 0.0 (0-0.2) k/uL Sodium 138 (137-145) mmol/L Potassium 3.3 L (3.5-5.1) mmol/L Chloride 101 (98-107) mmol/L Carbon Dioxide 27 (22-30) mmol/L Anion Gap 10 mmol/L BUN 44 H (7-17) mg/dL Creatinine 1.00 (0.52-1.04) mg/dL Est GFR (CKD-EPI)AfAm 75 (>60 ml/min/1.73 sqM) Est GFR (CKD-EPI)NonAf 65 (>60 ml/min/1.73 sqM) Glucose 132 H (74-99) mg/dL Calcium 10.1 (8.4-10.2) mg/dL Magnesium 1.7 (1.6-2.3) mg/dL Total Bilirubin 0.4 (0.2-1.3) mg/dL AST 38 H (14-36) U/L ALT 41 H (4-34) U/L Alkaline Phosphatase 108 (38-126) U/L Total Protein 6.9 (6.3-8.2) g/dL Albumin 4.1 (3.5-5.0) g/dL Urine Color Urine Appearance (Clear) Urine pH (5.0-8.0) Ur Specific [place] (1.001-1.035) Urine Protein (Negative) Urine Glucose (UA) (Negative) Urine Ketones (Negative) Urine Blood (Negative) Urine Nitrite (Negative) Urine Bilirubin (Negative) Urine Urobilinogen (<2.0) mg/dL Ur Leukocyte Esterase (Negative) 11/25/19 Range/Units 17:15 WBC (3.8-10.6) k/uL RBC (3.80-5.40) m/uL Hgb (11.4-16.0) gm/dL Hct (34.0-46.0) % MCV (80.0-100.0) fL MCH (25.0-35.0) pg MCHC (31.0-37.0) g/dL RDW (11.5-15.5) % Plt Count (150-450) k/uL Neutrophils % % Lymphocytes % % Monocytes % % Eosinophils % % Basophils % % Neutrophils # (1.3-7.7) k/uL Lymphocytes # (1.0-4.8) k/uL Monocytes # (0-1.0) k/uL Eosinophils # (0-0.7) k/uL Basophils # (0-0.2) k/uL Sodium (137-145) mmol/L Potassium (3.5-5.1) mmol/L Chloride (98-107) mmol/L Carbon Dioxide (22-30) mmol/L Anion Gap mmol/L BUN (7-17) mg/dL Creatinine (0.52-1.04) mg/dL Est GFR (CKD-EPI)AfAm (>60 ml/min/1.73 sqM) Est GFR (CKD-EPI)NonAf (>60 ml/min/1.73 sqM) Glucose (74-99) mg/dL Calcium (8.4-10.2) mg/dL Magnesium (1.6-2.3) mg/dL Total Bilirubin (0.2-1.3) mg/dL AST (14-36) U/L ALT (4-34) U/L Alkaline Phosphatase (38-126) U/L Total Protein (6.3-8.2) g/dL Albumin (3.5-5.0) g/dL Urine Color Yellow Urine Appearance Clear (Clear) Urine pH 5.5 (5.0-8.0) Ur Specific [place] 1.021 (1.001-1.035) Urine Protein Trace H (Negative) Urine Glucose (UA) Negative (Negative) Urine Ketones Negative (Negative) Urine Blood Negative (Negative) Urine Nitrite Negative (Negative) Urine Bilirubin Negative (Negative) Urine Urobilinogen <2.0 (<2.0) mg/dL Ur Leukocyte Esterase Negative (Negative) Disposition Clinical Impression: Bilateral pubic rami fractures, Azotemia, Dehydration Disposition: HOME SELF-CARE Condition: Good Instructions (If sedation given, give patient instructions): Dehydration (ED) Additional Instructions: Please follow-up with your doctor to recheck your kidney function and your potassium this week. Follow-up with orthopedic associate regarding pubic rami fractures. Take [place] for pain but do not drive or operate machinery while doing so. Do not take Motrin. If you have any worsening symptoms return here to the emergency room. Prescriptions: Cephalexin [Keflex] 500 mg PO TID #30 cap HYDROcodone/APAP 5-325MG [[place] 5-325] 1 tab PO Q6HR PRN #10 tab PRN Reason: Pain Is patient prescribed a controlled substance at d/c from ED?: No Referrals: Sujit Pak DO [Primary Care Provider] - 1-2 days Estbean Morocho MD [Medical Doctor] - 1-2 days Time of Disposition: 18:23
[2019-11-25] MEDS ORDERED: POTASSIUM CHLORIDE ER 20 MEQ TAB.ER PO STA (17:24)
[2019-11-25] MEDS ORDERED: CEPHALEXIN 500MG STARTER PACK 4 CAP BTL PO STA (17:45)
[2019-11-25 17:46] LABS: Appearance,Urine Clear (Clear); Bilirubin,Urine Negative (Negative); Blood,Urine Negative (Negative); Color,Urine Yellow; Glucose,Urine (UA) Negative (Negative); Ketones,Urine Negative (Negative); Leukocyte Esterase,Urine Negative (Negative); Nitrite,Urine Negative (Negative); PH, Urine 5.5 (5.0-8.0); Protein,Urine Trace (Negative); Specific Gravity,Urine 1.021 (1.001-1.035); Urobilinogen,Urine <2.0 mg/dL (<2.0)
[2019-11-25 18:42] VITALS: BP 136/88; PULSE 96; RESP 16
== END 2019-11-25 18:37 | disposition home or self-care (01) ==
LOC: EC 15:54
DX: S32.592A Other specified fracture of left pubis, initial encounter for closed fracture (principal); S32.591A Other specified fracture of right pubis, initial encounter for closed fracture; R79.89 Other specified abnormal findings of blood chemistry; E86.0 Dehydration; E87.6 Hypokalemia; M79.7 Fibromyalgia; G43.909 Migraine, unspecified, not intractable, without status migrainosus; Z79.52 Long term (current) use of systemic steroids; Z79.1 Long term (current) use of non-steroidal anti-inflammatories (NSAID); Z79.899 Other long term (current) drug therapy; Z88.6 Allergy status to analgesic agent; W19.XXXA Unspecified fall, initial encounter; Y92.096 Garden or yard of other non-institutional residence as the place of occurrence of the external cause
CPT/HCPCS: 36415; 80053; 81003; 83735; 85025; 96360; 99283

== ENCOUNTER → 2020-01-17 | Outpatient (CLI) | payer MEDICARE ==
--- NOTE | 2020-01-17 16:07 | US ---
EXAMINATION TYPE: US venous doppler duplex LE BI DATE OF EXAM: 01/17/2020 3:07 PM COMPARISON: NONE CLINICAL HISTORY: 54-year-old female R22.43 EDEMA, M79.662,M79.661 PAIN IN DIMITRIOS LEGS. Patient stated h as MS, dimitrios LE edema x 1 month; fractured pelvis; Sjogren's Disease. SIDE PERFORMED: Bilateral TECHNIQUE: The lower extremity deep venous system is examined utilizing real time linear array sonog jed with graded compression, doppler sonography and color-flow sonography. FINDINGS: VESSELS IMAGED: Common Femoral Vein Deep Femoral Vein Greater Saphenous Vein * Femoral Vein Popliteal Vein Small Saphenous Vein * Proximal Calf Veins Posterior tibial veins (* superficial vessels) Right Leg: Negative for DVT Left Leg: Negative for DVT Edema channels are noted bilateral lower extremity. IMPRESSION: No evidence for DVT within the bilateral lower extremities. Prominent subcutaneous edema within the legs.
--- NOTE | 2020-01-22 13:44 | P.ARTDOP ---
Arterial Doppler LOWER EXTREMITY ARTERIAL DOPPLER: DATE OF SERVICE: 01/17/2020 Reason for study: Leg pain. Doppler waveforms: Multiphasic bilaterally throughout. Pulse volume recording: []. Pressure gradients: None. Ankle-brachial indices: Greater than 1 on the right and 0.98 on the left. Toe brachial indices: 0.52 on the right, 0.4 on the left Impression: Normal study. Decreased toe pressures probably related to vasospastic phenomenon..
--- NOTE | 2020-02-06 16:13 | ECHOF ---
Referral Reason:R97.89 chest pain MEASUREMENTS -------- HEIGHT: 162.6 cm WEIGHT: 71.2 kg BP: RVIDd: 2.5 cm (< 3.3) IVSd: 1.0 cm (0.6 - 1.1) LVIDd: 3.3 cm (3.9 - 5.3) LVPWd: 1.1 cm (0.6 - 1.1) IVSs: 1.2 cm LVIDs: 3.0 cm LVPWs: 1.5 cm LA Diam: 2.4 cm (2.7 - 3.8) LAESV Index (A-L): 20.76 ml/m Ao Diam: 2.6 cm (2.0 - 3.7) AV Cusp: 1.6 cm (1.5 - 2.6) LA Diam: 3.2 cm (2.7 - 3.8) MV EXCURSION: 15.293 mm (> 18.000) MV EF SLOPE: 112 mm/s (70 - 150) EPSS: 0.5 cm MV E Frederick: 1.13 m/s MV DecT: 180 ms MV A Frederick: 0.46 m/s MV E/A Ratio: 2.43 RAP: 5.00 mmHg RVSP: 33.22 mmHg FINDINGS -------- Sinus rhythm. This was a technically good study. The left ventricular size is normal. There is mild concentric left ventricular hypertrophy. Overa ll left ventricular systolic function is normal with, an EF between 55 - 60 %. The right ventricle is normal in size. The left atrial size is normal. Normal LA size by volume 22+/-6 ml/m2. The right atrial size is normal. The aortic valve is trileaflet, and appears structurally normal. No aortic stenosis or regurgitation. Mild mitral annular calcification present. Mild mitral regurgitation is present. Mild tricuspid regurgitation present. Right ventricular systolic pressure is normal at < 35 mmHg. There is no pulmonic regurgitation present. The aortic root size is normal. There is a trivial pericardial effusion present. CONCLUSIONS -------- 1. Sinus rhythm. 2. This was a technically good study. 3. The left ventricular size is normal. 4. There is mild concentric left ventricular hypertrophy. 5. Overall left ventricular systolic function is normal with, an EF between 55 - 60 %. 6. The right ventricle is normal in size. 7. The left atrial size is normal. 8. Normal LA size by volume 22+/-6 ml/m2. 9. The right atrial size is normal. 10. The aortic valve is trileaflet, and appears structurally normal. No aortic stenosis or regurgitat ion. 11. Mild mitral annular calcification present. 12. Mild mitral regurgitation is present. 13. Mild tricuspid regurgitation present. 14. Right ventricular systolic pressure is normal at < 35 mmHg. 15. There is no pulmonic regurgitation present. 16. The aortic root size is normal. 17. There is a trivial pericardial effusion present. [employer]URE CAMERAMAN: Jen Dubon RDCS
== END | disposition home or self-care (01) ==
LOC: RADUSWWP 13:16
PROVIDERS: ATTEND Family Medicine
DX: R22.43 Localized swelling, mass and lump, lower limb, bilateral (principal)
CPT/HCPCS: 93306; 93922; 93970

== ENCOUNTER → 2020-01-17 | Outpatient (CLI) | payer MEDICARE ==
[2020-01-17 14:45] LABS: Amorphous Sediment,Urine Rare /hpf; Appearance,Urine Cloudy (Clear); Bacteria,Urine Rare /hpf; Bilirubin,Urine Negative (Negative); Blood,Urine Small (Negative); Calcium Oxalate Crystals,Urine Many /hpf; Color,Urine Dark Yellow; Glucose,Urine (UA) Negative (Negative); HGB 10.6 gm/dL (11.4-16.0); Hyaline Casts,Urine 127 /lpf (0-2); Hypochromasia Slight; Ketones,Urine 1+ (Negative); Leukocyte Esterase,Urine Large (Negative); MCH 31.1 pg (25.0-35.0); MCHC 33.1 g/dL (31.0-37.0); MCV 93.9 fL (80.0-100.0); Mucus,Urine Few /hpf; Nitrite,Urine Negative (Negative); PH, Urine 5.5 (5.0-8.0); Platelet Count 636 k/uL (150-450); Poikilocytosis Slight; Protein,Urine 1+ (Negative); RBC 3.41 m/uL (3.80-5.40); RBC,Urine 41 /hpf (0-5); RDW 14.1 % (11.5-15.5); Specific Gravity,Urine 1.035 (1.001-1.035); Squamous Epithelial Cell,Urine 3 /hpf (0-4); WBC 12.8 k/uL (3.8-10.6); WBC,Urine 26 /hpf (0-5)
[2020-01-17 17:48] LABS: % Iron Saturation 14.23 (12.00-45.00); African American GFR (CKD) 45.9 (60.0-200.0); Albumin 4.5 g/dL (3.80-4.90); Albumin/Globulin Ratio 1.8 (1.60-3.17); Anion Gap 13.9 mmol/L (4.00-12.00); BUN/Creat Ratio 9.33 Ratio (12.00-20.00); Calcium 11.2 mg/dL (8.7-10.3); Carbon Dioxide 27.1 mmol/L (21.6-31.8); Globulin 2.5 g/dL (1.6-3.3); Magnesium 1.6 mg/dL (1.5-2.4); Non-African American GFR(CKD) 39.6 (60.0-200.0); Phosphorus 3.6 mg/dL (2.4-5.1); Total Bilirubin 0.4 mg/dL (0.3-1.2); Uric Acid 8.3 mg/dL (2.9-7.7)
[2020-01-17 17:51] LABS: Ferritin 263.8 ng/mL (10.0-291.0)
== END | disposition home or self-care (01) ==
LOC: LABWHC1 13:57
PROVIDERS: ATTEND Nurse Practitioner Family
DX: N18.3 Chronic kidney disease, stage 3 (moderate) (principal); N39.0 Urinary tract infection, site not specified; D63.1 Anemia in chronic kidney disease; N25.81 Secondary hyperparathyroidism of renal origin; E55.9 Vitamin D deficiency, unspecified; M10.9 Gout, unspecified
CPT/HCPCS: 36415; 80053; 81001; 82728; 83540; 83550; 83735; 83970; 84100; 84550; 85027; 87086

== ENCOUNTER 2020-01-27 17:08 | Observation (INO) | payer MEDICARE ==
[2020-01-27] MEDS ORDERED: SODIUM CHLORIDE 0.9% 1,000 ML IV STA ×2 (17:33)
[2020-01-27] MEDS ORDERED: ONDANSETRON 4 MG/2 ML VIAL IVP STA (17:33)
[2020-01-27] MEDS ORDERED: SODIUM CHLORIDE 0.9% 500 ML 500 ML IV STA (17:33)
--- NOTE | 2020-01-27 17:35 | ED ---
Weakness HPI - General Chief complaint: Weakness Stated complaint: loss of appetite, weak Time Seen by Provider: 01/27/20 17:17 Source: patient, RN notes reviewed, old records reviewed Mode of arrival: wheelchair Limitations: physical limitation - History of Present Illness Initial comments: This is a 54-year-old female DF for evaluation she presents today for evaluation regards to weakness not feeling well nausea vomiting and diarrhea decreased activity occasional lower extremity edema, chills occasional sweating MD Complaint: generalized weakness -: days(s) Location: generalized Severity: moderate Severity scale (1-10): 5 Quality: numbness Consistency: constant Improves with: none Worsens with: morning Context: recent illness, trauma/injury Associated Symptoms: loss of appetite, nausea/vomiting, myalgias - Related Data Home Medications Medication Instructions Recorded Confirmed predniSONE 10 mg PO TID 02/13/16 11/25/19 traZODone HCL [Desyrel] 100 mg PO HS 02/13/16 11/25/19 Cholecalciferol [Vitamin D3] 1,000 unit PO W/SUPPER 09/27/17 11/25/19 Cyclobenzaprine [Flexeril] 10 mg PO HS 09/27/17 11/25/19 Esomeprazole Magnesium [NexIUM] 40 mg PO BID 09/27/17 11/25/19 Pilocarpine HCl [Salagen] 5 mg PO TID 09/27/17 11/25/19 Teriflunomide [Aubagio] 14 mg PO HS 09/27/17 11/25/19 Venlafaxine HCl ER [Effexor XR] 150 mg PO W/SUPPER 09/27/17 11/25/19 Vitamin B Complex 1 tab PO DAILY 09/27/17 11/25/19 rOPINIRole HCL 10 mg PO HS 09/27/17 11/25/19 Azilsartan Med/Chlorthalidone 1 tab PO DAILY 12/20/18 11/25/19 [Edarbyclor 40-25 mg Tablet] Dextroamphetamine Sulfate 15 mg PO BID 12/20/18 11/25/19 [Dexedrine] Ascorbic Acid [Vitamin C] 500 mg PO BID 11/25/19 11/25/19 Calcium/Magnesium/Zinc/Vitamin D 1 tab PO W/SUPPER 11/25/19 11/25/19 Diclofenac Epolamine [Flector 1.3% 1 patch TRANSDERM Q12H 11/25/19 11/25/19 Patch] Ferrous Sulfate [Feosol] 325 mg PO W/SUPPER 11/25/19 11/25/19 Topiramate [Topamax] 50 mg PO BID 11/25/19 11/25/19 Previous Rx's Medication Instructions Recorded Cephalexin [Keflex] 500 mg PO TID #30 cap 11/25/19 HYDROcodone/APAP 5-325MG [[place] 1 tab PO Q6HR PRN #10 tab 11/25/19 5-325] Allergies Allergy/AdvReac Type Severity Reaction Status Date / Time aspirin AdvReac Nausea Verified 01/27/20 17:13 Review of Systems ROS Statement: Those systems with pertinent positive or pertinent negative responses have been documented in the HPI. ROS Other: All systems not noted in ROS Statement are negative. Past Medical History Past Medical History: Fibromyalgia, Musculoskeletal Disorder Additional Past Medical History / Comment(s): Migraines, Shrgren syndrome, DDD, MS History of Any Multi-Drug Resistant Organisms: None Reported Past Surgical History: Appendectomy, Hysterectomy, Orthopedic Surgery Additional Past Surgical History / Comment(s): right ankle Past Psychological History: No Psychological Hx Reported Smoking Status: Never smoker Past Alcohol Use History: None Reported Past Drug Use History: None Reported General Exam Limitations: physical limitation General appearance: alert, in no apparent distress Head exam: Present: atraumatic, normocephalic, normal inspection Eye exam: Present: normal appearance, PERRL, EOMI. Absent: scleral icterus, conjunctival injection, periorbital swelling ENT exam: Present: normal exam, mucous membranes moist Neck exam: Present: normal inspection. Absent: tenderness, meningismus, lymphadenopathy Respiratory exam: Present: normal lung sounds bilaterally. Absent: respiratory distress, wheezes, rales, rhonchi, stridor Cardiovascular Exam: Present: normal rhythm, tachycardia, normal heart sounds. Absent: systolic murmur, diastolic murmur, rubs, gallop, clicks GI/Abdominal exam: Present: soft, normal bowel sounds. Absent: distended, tenderness, guarding, rebound, rigid Extremities exam: Present: normal inspection, full ROM, normal capillary refill. Absent: tenderness, pedal edema, joint swelling, calf tenderness Back exam: Present: normal inspection Neurological exam: Present: alert, oriented X3, CN II-XII intact Psychiatric exam: Present: normal affect, normal mood Skin exam: Present: warm, dry, intact, normal color. Absent: rash Course Vital Signs 01/27/20 01/27/20 17:10 19:27 Temperature 98.1 F 98 F Pulse Rate 109 H 89 Respiratory 18 18 Rate Blood Pressure 128/84 134/74 O2 Sat by Pulse 100 98 Oximetry - Reevaluation(s) Reevaluation #1: 01/27/20 18:32 Medical record is reviewed Reevaluation #2: 01/27/20 20:12 Patient does not feel any better with nausea vomiting and diarrhea no appetite - Consultations Consultation #1: Spoke with Dr. Otero agreeable for admission EKG Findings - EKG Comments: EKG Findings:: EKG is sinus 75 pr 148 QRS 20 take QTC 495 Medical Decision Making - Medical Decision Making 54 female DF for evaluation patient presents today for evaluation of weakness nausea vomiting and diarrhea patient is low potassium we'll replace patient given fluid resuscitation tachycardia has improved, patient will rule out covert - Lab Data Result diagrams: 01/27/20 17:46 01/27/20 17:46 Lab Results 01/27/20 01/27/20 01/27/20 Range/Units 17:46 17:46 17:46 WBC 7.4 (3.8-10.6) k/uL RBC 3.49 L (3.80-5.40) m/uL Hgb 10.6 L (11.4-16.0) gm/dL Hct 31.9 L (34.0-46.0) % MCV 91.4 (80.0-100.0) fL MCH 30.4 (25.0-35.0) pg MCHC 33.3 (31.0-37.0) g/dL RDW 13.8 (11.5-15.5) % Plt Count 691 H (150-450) k/uL Neutrophils % 72 % Lymphocytes % 20 % Monocytes % 6 % Eosinophils % 1 % Basophils % 0 % Neutrophils # 5.3 (1.3-7.7) k/uL Lymphocytes # 1.5 (1.0-4.8) k/uL Monocytes # 0.4 (0-1.0) k/uL Eosinophils # 0.1 (0-0.7) k/uL Basophils # 0.0 (0-0.2) k/uL Poikilocytosis Slight PT 10.6 (9.0-12.0) sec INR 1.0 (<1.2) APTT 24.7 (22.0-30.0) sec D-Dimer 1.61 H (<0.60) mg/L FEU Sodium 137 (137-145) mmol/L Potassium 2.9 L (3.5-5.1) mmol/L Chloride 104 (98-107) mmol/L Carbon Dioxide 24 (22-30) mmol/L Anion Gap 9 mmol/L BUN 5 L (7-17) mg/dL Creatinine 0.61 (0.52-1.04) mg/dL Est GFR (CKD-EPI)AfAm >90 (>60 ml/min/1.73 sqM) Est GFR (CKD-EPI)NonAf >90 (>60 ml/min/1.73 sqM) Glucose 96 (74-99) mg/dL Plasma Lactic Acid Deangelo (0.7-2.0) mmol/L Calcium 10.0 (8.4-10.2) mg/dL Phosphorus 3.8 (2.5-4.5) mg/dL Magnesium 1.6 (1.6-2.3) mg/dL Total Bilirubin 0.5 (0.2-1.3) mg/dL AST 43 H (14-36) U/L ALT 37 H (4-34) U/L Alkaline Phosphatase 113 (38-126) U/L Lactate Dehydrogenase 633 H (313-618) U/L Troponin I (0.000-0.034) ng/mL C-Reactive Protein 29.7 H (<10.0) mg/L NT-Pro-B Natriuret Pep pg/mL Total Protein 5.7 L (6.3-8.2) g/dL Albumin 3.1 L (3.5-5.0) g/dL TSH 1.240 (0.465-4.680) mIU/L 01/27/20 01/27/20 01/27/20 Range/Units 17:46 17:46 17:46 WBC (3.8-10.6) k/uL RBC (3.80-5.40) m/uL Hgb (11.4-16.0) gm/dL Hct (34.0-46.0) % MCV (80.0-100.0) fL MCH (25.0-35.0) pg MCHC (31.0-37.0) g/dL RDW (11.5-15.5) % Plt Count (150-450) k/uL Neutrophils % % Lymphocytes % % Monocytes % % Eosinophils % % Basophils % % Neutrophils # (1.3-7.7) k/uL Lymphocytes # (1.0-4.8) k/uL Monocytes # (0-1.0) k/uL Eosinophils # (0-0.7) k/uL Basophils # (0-0.2) k/uL Poikilocytosis PT (9.0-12.0) sec INR (<1.2) APTT (22.0-30.0) sec D-Dimer (<0.60) mg/L FEU Sodium (137-145) mmol/L Potassium (3.5-5.1) mmol/L Chloride (98-107) mmol/L Carbon Dioxide (22-30) mmol/L Anion Gap mmol/L BUN (7-17) mg/dL Creatinine (0.52-1.04) mg/dL Est GFR (CKD-EPI)AfAm (>60 ml/min/1.73 sqM) Est GFR (CKD-EPI)NonAf (>60 ml/min/1.73 sqM) Glucose (74-99) mg/dL Plasma Lactic Acid Deangelo 1.0 (0.7-2.0) mmol/L Calcium (8.4-10.2) mg/dL Phosphorus (2.5-4.5) mg/dL Magnesium (1.6-2.3) mg/dL Total Bilirubin (0.2-1.3) mg/dL AST (14-36) U/L ALT (4-34) U/L Alkaline Phosphatase (38-126) U/L Lactate Dehydrogenase (313-618) U/L Troponin I <0.012 (0.000-0.034) ng/mL C-Reactive Protein (<10.0) mg/L NT-Pro-B Natriuret Pep 133 pg/mL Total Protein (6.3-8.2) g/dL Albumin (3.5-5.0) g/dL TSH (0.465-4.680) mIU/L - Radiology Data Radiology results: report reviewed (Chest x-rays negative for acute disease), image reviewed Disposition Clinical Impression: Nausea vomiting and diarrhea, Hypokalemia, Dehydration, Gastroenteritis Disposition: ADMITTED IP TO THIS [facility] Condition: Fair Is patient prescribed a controlled substance at d/c from ED?: No Referrals: Sujit Pak DO [Primary Care Provider] - 1-2 days
[2020-01-27 18:13] LABS: Basophils % (A) 0 %; Eosinophils # (A) 0.1 k/uL (0-0.7); Eosinophils % (A) 1 %; HCT 31.9 % (34.0-46.0); HGB 10.6 gm/dL (11.4-16.0); Lymphocytes # (A) 1.5 k/uL (1.0-4.8); Lymphocytes % (A) 20 %; MCH 30.4 pg (25.0-35.0); MCHC 33.3 g/dL (31.0-37.0); MCV 91.4 fL (80.0-100.0); Mean Platelet Volume 6.6; Monocytes # (A) 0.4 k/uL (0-1.0); Monocytes % (A) 6 %; Neutrophils # (A) 5.3 k/uL (1.3-7.7); Neutrophils % (A) 72 %; Platelet Count 691 k/uL (150-450); Poikilocytosis Slight; RBC 3.49 m/uL (3.80-5.40); RDW 13.8 % (11.5-15.5); WBC 7.4 k/uL (3.8-10.6)
[2020-01-27 18:24] LABS: ALT 37 U/L (4-34); AST 43 U/L (14-36); African American GFR (CKD) >90 (>60 ml/min/1.73 sqM); Albumin 3.1 g/dL (3.5-5.0); Alkaline Phosphatase 113 U/L (38-126); Anion Gap 9 mmol/L; Blood Urea Nitrogen 5 mg/dL (7-17); C Reactive Protein 29.7 mg/L (<10.0); Carbon Dioxide 24 mmol/L (22-30); Chloride 104 mmol/L (98-107); Glucose 96 mg/dL (74-99); LDH 633 U/L (313-618); Magnesium 1.6 mg/dL (1.6-2.3); Non-African American GFR(CKD) >90 (>60 ml/min/1.73 sqM); Phosphorus 3.8 mg/dL (2.5-4.5); Potassium 2.9 mmol/L (3.5-5.1); Sodium 137 mmol/L (137-145); Total Bilirubin 0.5 mg/dL (0.2-1.3); Total Protein 5.7 g/dL (6.3-8.2)
[2020-01-27 18:28] LABS: Partial Thromboplastin Time 24.7 sec (22.0-30.0); Prothrombin Time 10.6 sec (9.0-12.0)
[2020-01-27 18:36] LABS: D-Dimer 1.61 mg/L FEU (<0.60)
[2020-01-27] MEDS ORDERED: MORPHINE SULFATE 4 MG/ML SYRINGE IVP STA (19:26)
[2020-01-27] MEDS ORDERED: POTASSIUM BICARBONATE/CIT AC 20 MEQ TABLET.EFF PO ONE (19:27)
--- NOTE | 2020-01-27 20:00 | XR ---
EXAMINATION TYPE: XR chest 1V DATE OF EXAM: 01/27/2020 COMPARISON: Chest x-ray December 20, 2018. HISTORY: Chest pain and weakness. TECHNIQUE: Single AP portable frontal upright view of the chest is obtained. FINDINGS: There is chronic parenchymal change without suspicious focal air space opacity, pleural ef fusion, or pneumothorax seen. The cardiac silhouette size is mildly enlarged with atherosclerotic th oracic aorta. The osseous structures are demineralized. Underlying scoliotic curvature. IMPRESSION: Chronic changes and mild cardiomegaly without acute pulmonary process.
[2020-01-27] MEDS ORDERED: ONDANSETRON 4 MG/2 ML VIAL IVP PRN (20:10)
[2020-01-27] MEDS ORDERED: MORPHINE SULFATE 4 MG/ML SYRINGE IVP PRN (20:10)
[2020-01-27] MEDS ORDERED: PANTOPRAZOLE 40 MG/10 ML VIAL IVP STA (20:10)
[2020-01-27 20:47] LABS: Appearance,Urine Clear (Clear); Bacteria,Urine Rare /hpf; Bilirubin,Urine Negative (Negative); Blood,Urine Negative (Negative); Calcium Oxalate Crystals,Urine Few /hpf; Color,Urine Yellow; Glucose,Urine (UA) Negative (Negative); Hyaline Casts,Urine 1 /lpf (0-2); Ketones,Urine 4+ (Negative); Leukocyte Esterase,Urine Moderate (Negative); Mucus,Urine Rare /hpf; Nitrite,Urine Negative (Negative); Protein,Urine Trace (Negative); RBC,Urine 2 /hpf (0-5); Specific Gravity,Urine 1.017 (1.001-1.035); Squamous Epithelial Cell,Urine 1 /hpf (0-4); Urobilinogen,Urine <2.0 mg/dL (<2.0); WBC,Urine 5 /hpf (0-5)
[2020-01-27] MEDS ORDERED: DICLOFENAC EPOLAMINE TOPICAL PRN (21:26)
[2020-01-27] MEDS: PILOCARPINE 5 MG TAB PO SCH (22:47)
[2020-01-27] MEDS: predniSONE 10 MG TAB PO SCH (22:47)
[2020-01-28] MEDS: MORPHINE SULFATE 4 MG/ML SYRINGE IVP PRN ×2 (00:21→04:18)
[2020-01-28 02:15] LABS: Ferritin 169.2 ng/mL (10.0-291.0)
[2020-01-28 06:14] LABS: Basophils % (A) 0 %; Eosinophils % (A) 0 %; HCT 31.3 % (34.0-46.0); HGB 9.9 gm/dL (11.4-16.0); Hypochromasia Slight; Lymphocytes # (A) 0.9 k/uL (1.0-4.8); Lymphocytes % (A) 10 %; MCH 29.2 pg (25.0-35.0); MCHC 31.6 g/dL (31.0-37.0); MCV 92.5 fL (80.0-100.0); Mean Platelet Volume 6.6; Monocytes # (A) 0.2 k/uL (0-1.0); Monocytes % (A) 2 %; Neutrophils % (A) 86 %; Platelet Count 615 k/uL (150-450); RBC 3.38 m/uL (3.80-5.40); RDW 13.8 % (11.5-15.5); WBC 9.3 k/uL (3.8-10.6)
[2020-01-28 06:26] LABS: ALT 33 U/L (4-34); AST 34 U/L (14-36); African American GFR (CKD) >90 (>60 ml/min/1.73 sqM); Alkaline Phosphatase 106 U/L (38-126); Anion Gap 7 mmol/L; Blood Urea Nitrogen 4 mg/dL (7-17); Calcium 9.7 mg/dL (8.4-10.2); Carbon Dioxide 24 mmol/L (22-30); Chloride 108 mmol/L (98-107); Glucose 127 mg/dL (74-99); Non-African American GFR(CKD) >90 (>60 ml/min/1.73 sqM); Potassium 4.1 mmol/L (3.5-5.1); Sodium 139 mmol/L (137-145); Total Bilirubin 0.5 mg/dL (0.2-1.3); Total Protein 5.5 g/dL (6.3-8.2)
--- NOTE | 2020-01-28 08:15 | CT ---
EXAM: CT Angiography Chest With Intravenous Contrast CLINICAL HISTORY: Elevated D-Dimer TECHNIQUE: Axial computed tomographic angiography images of the chest with intravenous contrast. CTDI is 7.7 mGy and DLP is 228.3 mGy-cm. This CT exam was performed using one or more of the following dose reduction techniques: automated exposure control, adjustment of the mA and/or kV according to patient size, and/or use of iterative reconstruction technique. MIP reconstructed images were created and reviewed. COMPARISON: No relevant prior studies available. FINDINGS: LUNGS: There is no focal infiltrate. There is no pleural effusion or pneumothorax. The tracheobronchial tree is patent. Linear, subsegmental atelectasis/scarring at the lung bases. HEART: Within normal limits. VASCULATURE: No acute pulmonary embolism. THYROID: Within normal limits. MEDIASTINUM + LYMPHADENOPATHY: There are no pathologically enlarged mediastinal, hilar, or axillary lymph nodes. SUPERIOR ABDOMEN: Small hiatal hernia. Hepatic steatosis. MUSCULOSKELETAL: Old right 3-6 rib fractures, laterally. Old left 2, 5, 6, 7, rib fractures laterally. IMPRESSION: No acute pulmonary embolism. Small hiatal hernia. Hepatic steatosis. Old bilateral rib fractures. See above.
[2020-01-28 08:46] VITALS: BP 129/81; PULSE 96; RESP 16; TEMP 98
[2020-01-28] MEDS: PILOCARPINE 5 MG TAB PO SCH (08:52)
[2020-01-28] MEDS: predniSONE 10 MG TAB PO SCH (08:53)
[2020-01-28] MEDS ORDERED: CHLORTHALIDONE 25 MG TAB PO SCH (09:00)
[2020-01-28] MEDS ORDERED: LOSARTAN 25 MG TAB PO SCH (09:00)
[2020-01-28] MEDS ORDERED: ASCORBIC ACID 500 MG TAB PO SCH (09:00)
[2020-01-28] MEDS ORDERED: ALLOPURINOL 100 MG TAB PO SCH (09:00)
[2020-01-28] MEDS ORDERED: TOPIRAMATE 100 MG TAB PO SCH (09:00)
[2020-01-28] MEDS ORDERED: NON FORMULARY DRUG (Vitamin B Complex [Vitamin B Complex] 1 TAB) PO SCH (09:00)
[2020-01-28] MEDS ORDERED: PANTOPRAZOLE 40 MG/10 ML VIAL IVP SCH (09:00)
--- NOTE | 2020-01-28 14:08 | P.HPIM ---
History of Present Illness H&P Date: 01/28/20 HISTORY AND PHYSICAL AND DISCHARGE SUMMARY: This is a 54-year-old female patient of Dr. Pak with a past medical history of fibromyalgia, MS, Sjogren's, degenerative disc disease, hypertension. Patient states she had diarrhea without nausea or vomiting. Spending 3 days in bed and felt like she was dehydrated and couldn't wake up. She states she was not hungry. She felt that she could not stay awake. She states she had some chills but no documented fever. No abdominal pain. No dysuria. Patient has MS and follows with Dr. Diaz (Dr. Kolb in the past) and utilizes cane for ambulation due to left-sided weakness. No change in her weakness status. Patient also follows with Dr. Christianson on a regular basis for chronic kidney disease. Patient came into [facility] emergency center for evaluation. She was afebrile, heart rate 109, blood pressure 128/84, pulse ox 100% on room air. WBC 7.4, hemoglobin 10.6, platelet count 691. Sodium 137, potassium 2.9, chloride 104, CO2 24, BUN 5 and creatinine 0.61. Blood sugar 96. D-dimer elevated 1.61. CTA was negative for pulmonary embolism. AST 43, ALT 37, alkaline phosphatase 113, LDH 633, C-reactive protein 29.7, TSH 1.240. Troponin 0.012. ProBNP 133. Lactic acid 1. Chest x-ray revealed chronic changes and mild cardiomegaly without acute process. Patient received 2 L of IV fluids, potassium 40 mEq, morphine, Zofran and Protonix. Repeat potassium today is at 4.1. Patient states that she has had no diarrhea since she arrived. She denies having any abdominal pain. Patient will be discharged home today once coronavirus testing is resulted. The patient's symptoms have resolved and patient will be discharged home today. Review of systems Constitutional: Denies fatigue, denies malaise, Reports poor appetite, denies w eakness, Denies chills, Denies fever Eyes: denies blurred vision, denies pain Ears, nose, mouth and throat: Reports vertigo, Denies dysphagia, Denies headache, Denies nasal congestion, Denies nasal discharge, Denies sore throat Cardiovascular: Denies chest pain, Denies decreased exercise tolerance, Denies dyspnea on exertion, Denies edema, Denies irregular heart beat, Denies leg edema, Denies lightheadedness, Denies shortness of breath, Denies syncope Respiratory: Denies cough, Denies cough with sputum, Denies dyspnea, Denies excessive sputum, Denies hemoptysis, Denies home oxygen Gastrointestinal: Reports diarrhea, Reports loss of appetite, Reports nausea, Reports vomiting, Denies abdominal pain Genitourinary: Denies dysuria, Denies hematuria, Denies urgency, Denies urinary frequency Musculoskeletal: Denies frequent falls, Denies gait dysfunction, Denies myalgias Musculoskeletal: left: ankle pain Integumentary: Denies pruritus, Denies rash, Denies wounds Neurological: Denies aphasia, Denies change in mentation, Denies change in speec h, Denies confusion, Denies numbness, Denies seizures, Denies weakness Psychiatric: Denies anxiety, Denies depression Endocrine: Denies fatigue, Denies weight change Physical examination Gen: This is an obese 53-year-old female. Patient is resting in bed and appears to be comfortable. HEENT: Head is atraumatic, normocephalic. Pupils equal, round. Sclerae is anicteric. NECK: Supple. No JVD. No lymphadenopathy. No thyromegaly. LUNGS: Clear to auscultation. No wheezes or rhonchi. No intercostal retractions . HEART: Regular rate and rhythm. No murmur. ABDOMEN: Soft. Bowel sounds are present. No masses. No tenderness. EXTREMITIES: No pedal edema. No calf tenderness. Peter wrap in place to the left lower extremity. NEUROLOGICAL: Patient is awake, alert and oriented x3. Cranial nerves 2 through 12 are grossly intact. Assessment and plan 1. Dehydration secondary to diarrhea, resolved. 2. Hypokalemia secondary to diarrhea, replaced. 3. Sjogren's, stable. Continue pilocarpine 5 mg 3 times daily. 4. Hypertension. Patient has been off medication. 5. Multiple sclerosis, stable without exacerbation. 6. Migraine headaches. 7. Recurrent depression. 8. COVID-19 infection not present. Patient placed on the observation unit. Discharge plan: Home. Impression and plan of care have been directed as dictated by the signing physician. Cici Chatman nurse practitioner acting as scribe for signing physician. Past Medical History Past Medical History: Fibromyalgia, Musculoskeletal Disorder Additional Past Medical History / Comment(s): Migraines, Shrgren syndrome, DDD, MS History of Any Multi-Drug Resistant Organisms: None Reported Past Surgical History: Appendectomy, Hysterectomy, Orthopedic Surgery Additional Past Surgical History / Comment(s): right ankle Past Anesthesia/Blood Transfusion Reactions: No Reported Reaction Past Psychological History: No Psychological Hx Reported Smoking Status: Never smoker Past Alcohol Use History: None Reported Additional Past Alcohol Use History / Comment(s): Patient has been a nonsmoker, no marijuana or illicit drug use, no alcohol use. Patient is single. Past Drug Use History: None Reported - Past Family History Father Family Medical History: AICD/Pacemaker, Congestive Heart Failure (CHF), COPD, Diabetes Mellitus, Myocardial Infarction ([place]) Additional Family Medical History / Comment(s): Father at age 83 in his sleep. He has history of AICD. Mother Family Medical History: Hypertension Additional Family Medical History / Comment(s): Mother is alive at age 77 with history of hypertension and bronchiectasis. Patient has 2 brothers with no major medical problems. Patient does not have any sisters. Patient is one daughter with no major medical problems. Medications and Allergies Home Medications Medication Instructions Recorded Confirmed Type predniSONE 10 mg PO TID 02/13/16 01/27/20 History traZODone HCL [Desyrel] 100 mg PO HS 02/13/16 01/27/20 History Cholecalciferol [Vitamin D3 (25 1,000 unit PO W/SUPPER 09/27/17 01/27/20 History Mcg = 1000 Iu)] Cyclobenzaprine [Flexeril] 10 mg PO HS 09/27/17 01/27/20 History Esomeprazole Magnesium [NexIUM] 40 mg PO BID 09/27/17 01/27/20 History Pilocarpine HCl [Salagen] 5 mg PO TID 09/27/17 01/27/20 History Venlafaxine HCl ER [Effexor XR] 150 mg PO W/SUPPER 09/27/17 01/27/20 History Vitamin B Complex 1 tab PO DAILY 09/27/17 01/27/20 History rOPINIRole HCL 10 mg PO HS 09/27/17 01/27/20 History Dextroamphetamine Sulfate 15 mg PO BID 12/20/18 01/27/20 History [Dexedrine] Ascorbic Acid [Vitamin C] 500 mg PO BID 11/25/19 01/27/20 History Calcium/Magnesium/Zinc/Vitamin D 1 tab PO W/SUPPER 11/25/19 01/27/20 History Diclofenac Epolamine [Flector 1.3% 1 patch TRANSDERM Q12H PRN 11/25/19 01/27/20 History Patch] Ferrous Sulfate [Iron (65 MG 325 mg PO W/SUPPER 11/25/19 01/27/20 History Elemental)] Allopurinol [Zyloprim] 100 mg PO DAILY 01/27/20 01/27/20 History Allergies Allergy/AdvReac Type Severity Reaction Status Date / Time aspirin AdvReac Nausea Verified 01/27/20 20:35 Physical Exam Vitals: Vital Signs Temp Pulse Pulse Resp BP BP Pulse Ox 01/28/20 08:00 98.0 F 96 16 129/81 96 01/28/20 04:00 93 17 124/86 96 01/28/20 00:00 98.3 F 101 H 17 143/79 97 01/27/20 21:24 98.4 F 88 16 133/66 100 01/27/20 20:40 91 18 128/63 98 01/27/20 19:27 98 F 89 18 134/74 98 01/27/20 17:10 98.1 F 109 H 18 128/84 100 Intake and Output 01/27/20 01/28/20 01/28/20 22:59 06:59 14:59 Intake Total 1000 Balance 1000 Intake: Intake, IV Titration 1000 Amount Sodium Chloride 0.9% 1, 1000 000 ml @ 130 mls/hr IV . Q7H42M STA Rx#:[id number] Other: # Voids 1 2 Weight 71.668 kg Results CBC & Chem 7: 01/28/20 05:59 01/28/20 05:59 Labs: Abnormal Lab Results - Last 24 Hours (Table) 01/27/20 01/27/20 01/27/20 Range/Units 17:46 17:46 17:46 RBC 3.49 L (3.80-5.40) m/uL Hgb 10.6 L (11.4-16.0) gm/dL Hct 31.9 L (34.0-46.0) % Plt Count 691 H (150-450) k/uL Neutrophils # (1.3-7.7) k/uL Lymphocytes # (1.0-4.8) k/uL D-Dimer 1.61 H (<0.60) mg/L FEU Potassium 2.9 L (3.5-5.1) mmol/L Chloride (98-107) mmol/L BUN 5 L (7-17) mg/dL Glucose (74-99) mg/dL AST 43 H (14-36) U/L ALT 37 H (4-34) U/L Lactate Dehydrogenase 633 H (313-618) U/L C-Reactive Protein 29.7 H (<10.0) mg/L Total Protein 5.7 L (6.3-8.2) g/dL Albumin 3.1 L (3.5-5.0) g/dL Urine Protein (Negative) Urine Ketones (Negative) Ur Leukocyte Esterase (Negative) Calcium Oxalate Crystal (None) /hpf Urine Bacteria (None) /hpf Urine Mucus (None) /hpf 01/27/20 01/28/20 01/28/20 Range/Units 20:15 05:59 05:59 RBC 3.38 L (3.80-5.40) m/uL Hgb 9.9 L (11.4-16.0) gm/dL Hct 31.3 L (34.0-46.0) % Plt Count 615 H (150-450) k/uL Neutrophils # 8.0 H (1.3-7.7) k/uL Lymphocytes # 0.9 L (1.0-4.8) k/uL D-Dimer (<0.60) mg/L FEU Potassium (3.5-5.1) mmol/L Chloride 108 H (98-107) mmol/L BUN 4 L (7-17) mg/dL Glucose 127 H (74-99) mg/dL AST (14-36) U/L ALT (4-34) U/L Lactate Dehydrogenase (313-618) U/L C-Reactive Protein (<10.0) mg/L Total Protein 5.5 L (6.3-8.2) g/dL Albumin 3.0 L (3.5-5.0) g/dL Urine Protein Trace H (Negative) Urine Ketones 4+ H (Negative) Ur Leukocyte Esterase Moderate H (Negative) Calcium Oxalate Crystal Few H (None) /hpf Urine Bacteria Rare H (None) /hpf Urine Mucus Rare H (None) /hpf Thrombosis Risk Factor Assmnt - Choose All That Apply Any of the Below Risk Factors Present?: Yes Each Factor Represents 1 point: Age 41-60 years, Obesity (BMI >25) Other Risk Factors: No Other congenital or acquired thrombophilia - If yes, enter type in comment: No Thrombosis Risk Factor Assessment Total Risk Factor Score: 2 Thrombosis Risk Factor Assessment Level: Low Risk
[2020-01-28] MEDS ORDERED: FERROUS SULFATE 325 MG TAB PO SCH (17:30)
[2020-01-28] MEDS ORDERED: CHOLECALCIFEROL 1,000 UNIT TAB PO SCH (17:30)
[2020-01-28] MEDS ORDERED: VENLAFAXINE HCL ER 150 MG CAP PO SCH (17:30)
[2020-01-28] MEDS ORDERED: NON FORMULARY DRUG (Calcium/Magnesium/Zinc/Vitamin D 1 TAB) PO SCH (17:30)
[2020-01-28] MEDS ORDERED: rOPINIRole HCL 4 MG TABLET PO SCH (21:00)
[2020-01-28] MEDS ORDERED: CYCLOBENZAPRINE 10 MG TAB PO SCH (21:00)
[2020-01-28] MEDS ORDERED: traZODone HCL 100 MG TAB PO SCH (21:00)
[2020-01-29] MEDS ORDERED: PANTOPRAZOLE 40 MG TABLET PO SCH (07:30)
== END 2020-01-28 15:00 | disposition home or self-care (01) ==
LOC: EC 17:08 → 4SSUR 20:10 → 1SOBS 20:27
PROVIDERS: ADMIT Internal Medicine Geriatric Medicine; ATTEND Internal Medicine Geriatric Medicine
DX: E86.0 Dehydration (principal); K52.9 Noninfective gastroenteritis and colitis, unspecified; E87.6 Hypokalemia; F33.9 Major depressive disorder, recurrent, unspecified; G35 Multiple sclerosis; G43.909 Migraine, unspecified, not intractable, without status migrainosus; I12.9 Hypertensive chronic kidney disease with stage 1 through stage 4 chronic kidney disease, or unspecified chronic kidney disease; M35.00 Sjogren syndrome, unspecified; M79.7 Fibromyalgia; N18.9 Chronic kidney disease, unspecified; Z79.899 Other long term (current) drug therapy; Z82.49 Family history of ischemic heart disease and other diseases of the circulatory system; Z82.5 Family history of asthma and other chronic lower respiratory diseases; Z83.3 Family history of diabetes mellitus; Z90.710 Acquired absence of both cervix and uterus; Z03.818 Encounter for observation for suspected exposure to other biological agents ruled out; Z79.52 Long term (current) use of systemic steroids; Z88.6 Allergy status to analgesic agent
CPT/HCPCS: 96361 ×3; 96376; 96374; 96375; 99285; 36415; 93005; 85379; 83880; 80053 ×2; 82728; 83605; 83615; 83735; 84100; 84443; 84484; 85025 ×2; 85610; 85730; 86140; 81001; 87040; 84145; 71045; 71275; G0378 ×2; U0003; J2270 ×2; J2405; J7512 ×2; C9113 ×2; Q9967

== ENCOUNTER 2020-02-11 17:41 | Observation (INO) | payer MEDICARE ==
[2020-02-11] MEDS ORDERED: ONDANSETRON 4 MG/2 ML VIAL IVP STA (18:21)
[2020-02-11] MEDS ORDERED: PANTOPRAZOLE 40 MG/10 ML VIAL IVP STA (18:21)
[2020-02-11] MEDS ORDERED: SODIUM CHLORIDE 0.9% 1,000 ML IV STA (18:21)
[2020-02-11] MEDS ORDERED: KETOROLAC 30 MG/ML 1 ML VIAL IVP STA (18:23)
[2020-02-11 18:50] LABS: Basophils # (A) 0.1 k/uL (0-0.2); Basophils % (A) 1 %; Eosinophils # (A) 0.1 k/uL (0-0.7); Eosinophils % (A) 1 %; HCT 37.9 % (34.0-46.0); HGB 12.1 gm/dL (11.4-16.0); Lymphocytes # (A) 1.6 k/uL (1.0-4.8); Lymphocytes % (A) 17 %; MCH 28.7 pg (25.0-35.0); MCHC 31.9 g/dL (31.0-37.0); Mean Platelet Volume 7.7; Monocytes # (A) 0.6 k/uL (0-1.0); Monocytes % (A) 7 %; Neutrophils # (A) 6.6 k/uL (1.3-7.7); Neutrophils % (A) 73 %; Platelet Count 561 k/uL (150-450); RBC 4.21 m/uL (3.80-5.40); RDW 14.2 % (11.5-15.5)
--- NOTE | 2020-02-11 18:55 | ED ---
Abdominal Pain HPI - General Chief Complaint: Abdominal Pain Stated Complaint: abd pain Time Seen by Provider: 02/11/20 17:49 Source: patient Mode of arrival: ambulatory Limitations: no limitations - History of Present Illness Initial Comments: Patient is a 54-year-old female with history of fibromyalgia, MS, presenting to the emergency Department with complaints of abdominal pain that has been increasing over the past few weeks. Patient states she saw her PCP, Dr. Pak today who did order a computed tomography scan of her abdomen today. Patient states the results were negative and that her PCP told her to go into the ER and to be admitted for scopes. Patient states she was in the ER 2 weeks ago for same complaint and was worked up for possible Covid infection however that was negative. Patient was having diarrhea at that time but states that has been improving. She states the pain is all in her epigastric area and she is now been having nausea and vomiting for the past week. Patient states she has lost approximately 30 pounds in the last month. She has not been trying to lose weight. She admits to history of multiple laparotomies secondary to endometriosis, hysterectomy, appendectomy, no other abdominal surgeries. She d enies any recent fever, chills. She denies any recent changes in her medications. She denies any urinary complaints as dysuria or frequency. She denies any chest pain or shortness of breath. Patient has no further complaints at this time. Upon arrival to the ER, patient is tachycardia at 128, rest of vitals are normal. - Related Data Home Medications Medication Instructions Recorded Confirmed predniSONE 10 mg PO TID 02/13/16 01/27/20 traZODone HCL [Desyrel] 100 mg PO HS 02/13/16 01/27/20 Cholecalciferol [Vitamin D3 (25 1,000 unit PO W/SUPPER 09/27/17 01/27/20 Mcg = 1000 Iu)] Cyclobenzaprine [Flexeril] 10 mg PO HS 09/27/17 01/27/20 Esomeprazole Magnesium [NexIUM] 40 mg PO BID 09/27/17 01/27/20 Pilocarpine HCl [Salagen] 5 mg PO TID 09/27/17 01/27/20 Venlafaxine HCl ER [Effexor XR] 150 mg PO W/SUPPER 09/27/17 01/27/20 Vitamin B Complex 1 tab PO DAILY 09/27/17 01/27/20 rOPINIRole HCL 10 mg PO HS 09/27/17 01/27/20 Dextroamphetamine Sulfate 15 mg PO BID 12/20/18 01/27/20 [Dexedrine] Ascorbic Acid [Vitamin C] 500 mg PO BID 11/25/19 01/27/20 Calcium/Magnesium/Zinc/Vitamin D 1 tab PO W/SUPPER 11/25/19 01/27/20 Diclofenac Epolamine [Flector 1.3% 1 patch TRANSDERM Q12H PRN 11/25/19 01/27/20 Patch] Ferrous Sulfate [Iron (65 MG 325 mg PO W/SUPPER 11/25/19 01/27/20 Elemental)] allopurinoL [Zyloprim] 100 mg PO DAILY 01/27/20 01/27/20 Allergies Allergy/AdvReac Type Severity Reaction Status Date / Time aspirin AdvReac Nausea Verified 02/11/20 17:46 Review of Systems ROS Statement: Those systems with pertinent positive or pertinent negative responses have been documented in the HPI. ROS Other: All systems not noted in ROS Statement are negative. Past Medical History Past Medical History: Fibromyalgia, Musculoskeletal Disorder Additional Past Medical History / Comment(s): Migraines, Shrgren syndrome, DDD, MS History of Any Multi-Drug Resistant Organisms: None Reported Past Surgical History: Appendectomy, Hysterectomy, Orthopedic Surgery Additional Past Surgical History / Comment(s): right ankle Past Anesthesia/Blood Transfusion Reactions: No Reported Reaction Past Psychological History: No Psychological Hx Reported Smoking Status: Never smoker Past Alcohol Use History: None Reported Past Drug Use History: None Reported - Past Family History Father Family Medical History: AICD/Pacemaker, Congestive Heart Failure (CHF), COPD, Diabetes Mellitus, Myocardial Infarction ([place]) Additional Family Medical History / Comment(s): Father at age 83 in his sleep. He has history of AICD. Mother Family Medical History: Hypertension Additional Family Medical History / Comment(s): Mother is alive at age 77 with history of hypertension and bronchiectasis. Patient has 2 brothers with no major medical problems. Patient does not have any sisters. Patient is one daughter with no major medical problems. General Exam - General Exam Comments Initial Comments: GENERAL: Patient is well-developed and well-nourished. Patient is nontoxic and in no acute distress. HEAD: Atraumatic, normocephalic. EYES: Pupils equal round and reactive to light, extraocular movements intact, sclera anicteric, conjunctiva are normal. Eyelids were unremarkable. ENT: TMs normal, nares patent, oropharynx clear without exudates. Moist mucous membranes. NECK: Normal range of motion, supple without lymphadenopathy or JVD. LUNGS: Unlabored respirations. Breath sounds clear to auscultation bilaterally and equal. No wheezes rales or rhonchi. HEART: Tachycardia rate and rhythm without murmurs, rubs or gallops. ABDOMEN: Tender to palpation of the epigastric, upper abdomen. Soft, normoactive bowel sounds. No rebound. No masses appreciated. : Deferred MUSCULOSKELETAL: Normal extremities with adequate strength and normal range of motion, no pitting or edema. No clubbing or cyanosis. NEUROLOGICAL: Patient is alert and oriented x 3. Motor and sensory are also intact. Normal speech, normal gait. PSYCH: Normal mood, normal affect. SKIN: Warm, Dry, normal turgor, no rashes or lesions noted. Limitations: no limitations Course Vital Signs 02/11/20 02/11/20 17:44 18:55 Temperature 98.9 F 98.7 F Pulse Rate 128 H 106 H Respiratory 20 18 Rate Blood Pressure 144/84 123/89 O2 Sat by Pulse 100 100 Oximetry Medical Decision Making - Medical Decision Making Patient is a 54-year-old female here from Dr. Wells's office for abdominal pain. She did have an outpatient computed tomography scan today of her abdomen which shows no acute findings. Patient has been having nausea/vomiting as well as weight loss, approximately 30 pounds in one month. Patient arrived tachycardia, rest of vitals normal. Her exam reveals epigastric tenderness. Labs reveal a normal white count, potassium is low at 3.0, creatinine is elevated at 1.07, lactic acid is normal 1.8. Urine does show 3+ ketones, 20 wbc's. Patient was given fluids, pain control, Zofran. She does report improvement in her symptoms. I discussed these findings with the patient. Patient will be admitted for possible endoscope as well as colonoscopy. Patient will be given potassium as well as Rocephin for UTI. Patient is agreement with this plan of care. Patient was accepted by Dr. Dr. Whiteside, with GI consult. Case discussed with Dr. Mei. - Lab Data Result diagrams: 02/11/20 18:19 02/11/20 18:19 Lab Results 02/11/20 02/11/20 02/11/20 Range/Units 18:02 18:19 18:19 WBC 9.0 (3.8-10.6) k/uL RBC 4.21 (3.80-5.40) m/uL Hgb 12.1 (11.4-16.0) gm/dL Hct 37.9 (34.0-46.0) % MCV 90.0 (80.0-100.0) fL MCH 28.7 (25.0-35.0) pg MCHC 31.9 (31.0-37.0) g/dL RDW 14.2 (11.5-15.5) % Plt Count 561 H (150-450) k/uL Neutrophils % 73 % Lymphocytes % 17 % Monocytes % 7 % Eosinophils % 1 % Basophils % 1 % Neutrophils # 6.6 (1.3-7.7) k/uL Lymphocytes # 1.6 (1.0-4.8) k/uL Monocytes # 0.6 (0-1.0) k/uL Eosinophils # 0.1 (0-0.7) k/uL Basophils # 0.1 (0-0.2) k/uL PT 11.8 (9.0-12.0) sec INR 1.2 H (<1.2) APTT 24.8 (22.0-30.0) sec Sodium (137-145) mmol/L Potassium (3.5-5.1) mmol/L Chloride (98-107) mmol/L Carbon Dioxide (22-30) mmol/L Anion Gap mmol/L BUN (7-17) mg/dL Creatinine (0.52-1.04) mg/dL Est GFR (CKD-EPI)AfAm (>60 ml/min/1.73 sqM) Est GFR (CKD-EPI)NonAf (>60 ml/min/1.73 sqM) Glucose (74-99) mg/dL Plasma Lactic Acid Deangelo (0.7-2.0) mmol/L Calcium (8.4-10.2) mg/dL Total Bilirubin (0.2-1.3) mg/dL AST (14-36) U/L ALT (4-34) U/L Alkaline Phosphatase (38-126) U/L Total Protein (6.3-8.2) g/dL Albumin (3.5-5.0) g/dL Amylase (30-110) U/L Lipase (23-300) U/L Urine Color Yellow Urine Appearance Cloudy H (Clear) Urine pH 5.5 (5.0-8.0) Ur Specific [place] 1.017 (1.001-1.035) Urine Protein Trace H (Negative) Urine Glucose (UA) Negative (Negative) Urine Ketones 3+ H (Negative) Urine Blood Negative (Negative) Urine Nitrite Negative (Negative) Urine Bilirubin 1+ H (Negative) Urine Urobilinogen 2.0 (<2.0) mg/dL Ur Leukocyte Esterase Moderate H (Negative) Urine RBC 8 H (0-5) /hpf Urine WBC 20 H (0-5) /hpf Ur Squamous Epith Cells 2 (0-4) /hpf Urine Mucus Few H (None) /hpf 02/11/20 02/11/20 Range/Units 18:19 18:19 WBC (3.8-10.6) k/uL RBC (3.80-5.40) m/uL Hgb (11.4-16.0) gm/dL Hct (34.0-46.0) % MCV (80.0-100.0) fL MCH (25.0-35.0) pg MCHC (31.0-37.0) g/dL RDW (11.5-15.5) % Plt Count (150-450) k/uL Neutrophils % % Lymphocytes % % Monocytes % % Eosinophils % % Basophils % % Neutrophils # (1.3-7.7) k/uL Lymphocytes # (1.0-4.8) k/uL Monocytes # (0-1.0) k/uL Eosinophils # (0-0.7) k/uL Basophils # (0-0.2) k/uL PT (9.0-12.0) sec INR (<1.2) APTT (22.0-30.0) sec Sodium 135 L (137-145) mmol/L Potassium 3.0 L (3.5-5.1) mmol/L Chloride 96 L (98-107) mmol/L Carbon Dioxide 27 (22-30) mmol/L Anion Gap 12 mmol/L BUN 7 (7-17) mg/dL Creatinine 1.07 H (0.52-1.04) mg/dL Est GFR (CKD-EPI)AfAm 69 (>60 ml/min/1.73 sqM) Est GFR (CKD-EPI)NonAf 60 (>60 ml/min/1.73 sqM) Glucose 133 H (74-99) mg/dL Plasma Lactic Acid Deangelo 1.8 (0.7-2.0) mmol/L Calcium 11.8 H (8.4-10.2) mg/dL Total Bilirubin 0.6 (0.2-1.3) mg/dL AST 64 H (14-36) U/L ALT 25 (4-34) U/L Alkaline Phosphatase 144 H (38-126) U/L Total Protein 7.0 (6.3-8.2) g/dL Albumin 4.1 (3.5-5.0) g/dL Amylase 34 (30-110) U/L Lipase 73 (23-300) U/L Urine Color Urine Appearance (Clear) Urine pH (5.0-8.0) Ur Specific [place] (1.001-1.035) Urine Protein (Negative) Urine Glucose (UA) (Negative) Urine Ketones (Negative) Urine Blood (Negative) Urine Nitrite (Negative) Urine Bilirubin (Negative) Urine Urobilinogen (<2.0) mg/dL Ur Leukocyte Esterase (Negative) Urine RBC (0-5) /hpf Urine WBC (0-5) /hpf Ur Squamous Epith Cells (0-4) /hpf Urine Mucus (None) /hpf Disposition Clinical Impression: Epigastric pain, Nausea & vomiting, Hypokalemia, Weight loss, UTI (urinary tract infection) Disposition: ADMITTED IP TO THIS HOSP Condition: Stable Is patient prescribed a controlled substance at d/c from ED?: No Referrals: Sujit Pak DO [Primary Care Provider] - 1-2 days Decision Date: 02/11/20 Decision Time: 20:12
[2020-02-11 19:00] LABS: INR 1.2 (<1.2); Partial Thromboplastin Time 24.8 sec (22.0-30.0); Prothrombin Time 11.8 sec (9.0-12.0)
[2020-02-11 19:06] LABS: Albumin 4.1 g/dL (3.5-5.0); Calcium 11.8 mg/dL (8.4-10.2); Total Bilirubin 0.6 mg/dL (0.2-1.3)
[2020-02-11 19:30] LABS: Appearance,Urine Cloudy (Clear); Bilirubin,Urine 1+ (Negative); Blood,Urine Negative (Negative); Color,Urine Yellow; Glucose,Urine (UA) Negative (Negative); Ketones,Urine 3+ (Negative); Leukocyte Esterase,Urine Moderate (Negative); Mucus,Urine Few /hpf; Nitrite,Urine Negative (Negative); PH, Urine 5.5 (5.0-8.0); Protein,Urine Trace (Negative); RBC,Urine 8 /hpf (0-5); Specific Gravity,Urine 1.017 (1.001-1.035); Squamous Epithelial Cell,Urine 2 /hpf (0-4); WBC,Urine 20 /hpf (0-5)
[2020-02-11] MEDS ORDERED: KETOROLAC 30 MG/ML 1 ML VIAL IVP PRN (20:04)
[2020-02-11] MEDS ORDERED: NALOXONE 0.4 MG/ML 1 ML VIAL IV PRN (20:04)
[2020-02-11] MEDS ORDERED: ACETAMINOPHEN TAB 325 MG TAB PO PRN (20:04)
[2020-02-11] MEDS ORDERED: POTASSIUM CHLORIDE 20 MEQ in WATER FOR INJECTION 1 100ML.BAG IVPB STA (20:08)
[2020-02-11] MEDS ORDERED: cefTRIAXone IN SWFI 1,000 MG/10 ML SYRINGE IVP STA (20:09)
[2020-02-11] MEDS: POTASSIUM CHLORIDE ER 20 MEQ TAB.ER PO STA ×2 (20:59→21:21)
[2020-02-11] MEDS: SODIUM CHLORIDE 0.9% 1,000 ML IV SCH (21:11)
[2020-02-12] MEDS: MORPHINE SULFATE 4 MG/ML SYRINGE IV PRN ×2 (01:49→10:12)
[2020-02-12 06:37] LABS: Basophils % (A) 1 %; Eosinophils % (A) 1 %; HCT 32.2 % (34.0-46.0); HGB 10.4 gm/dL (11.4-16.0); Lymphocytes # (A) 1.1 k/uL (1.0-4.8); Lymphocytes % (A) 19 %; MCH 29.4 pg (25.0-35.0); MCHC 32.2 g/dL (31.0-37.0); MCV 91.4 fL (80.0-100.0); Mean Platelet Volume 7.4; Monocytes # (A) 0.3 k/uL (0-1.0); Monocytes % (A) 5 %; Neutrophils # (A) 4.2 k/uL (1.3-7.7); Neutrophils % (A) 73 %; Platelet Count 417 k/uL (150-450); RBC 3.52 m/uL (3.80-5.40); RDW 14.3 % (11.5-15.5); WBC 5.8 k/uL (3.8-10.6)
[2020-02-12 06:50] LABS: Albumin 2.9 g/dL (3.5-5.0); Potassium 3.3 mmol/L (3.5-5.1); Total Bilirubin 0.4 mg/dL (0.2-1.3); Total Protein 5.3 g/dL (6.3-8.2)
[2020-02-12] MEDS ORDERED: CYCLOBENZAPRINE 10 MG TAB PO PRN (09:08)
[2020-02-12] MEDS ORDERED: DICLOFENAC EPOLAMINE TOPICAL PRN (09:08)
[2020-02-12] MEDS ORDERED: PANTOPRAZOLE 40 MG/10 ML VIAL IVP SCH (09:15)
--- NOTE | 2020-02-12 10:04 | NM ---
EXAMINATION TYPE: NM hepatobiliary w CCK DATE OF EXAM: 02/12/2020 COMPARISON: CT 02/11/2020 HISTORY: Abdominal pain TECHNIQUE: After the intravenous administration of 5.2 mCi Tc 99m Mebrofenin hepatobiliary scintigrap hy is performed. Immediate images post injection. FINDINGS: There is satisfactory initial accumulation of tracer by the liver. The gallbladder is visualized wit hin 15 minutes. The small bowel activity is noted within 25 minutes. At one hour CCK was administer ed, patient was injected with 1.4 mcg of Kinevac, and gallbladder ejection fraction is calculated at 99 %, above the upper limit of the normal range. Therefore there is no scintigraphic evidence of cys tic or common bile duct obstruction to suggest acute cholecystitis. IMPRESSION: Findings may be indicative of hyper dynamic gallbladder
[2020-02-12] MEDS: PILOCARPINE 5 MG TAB PO SCH ×2 (10:05→21:13)
--- NOTE | 2020-02-12 10:53 | P.HPIM ---
History of Present Illness H&P Date: 02/12/20 This is a 54-year-old female patient of Dr. Pak with a past medical history of fibromyalgia, MS, Sjogren's, degenerative disc disease, hypertension, chronic kidney disease under the care of Dr. Christianson. Regarding MS, she is in the process of switching physicians from Dr. Kolb to Dr. Diaz. She utilizes cane for ambulation due to left-sided weakness. Patient was recently hospitalized on January 1314 for diarrhea and dehydration with hypokalemia initially presented with potassium of 2.9. Diarrhea resolved, no abdominal pain and patient was discharged home. Patient has subsequent followed up with Dr. Pak in the office and was scheduled for CAT scan of the abdomen and pelvis without contrast yesterday which revealed pelvic fractures correlate for possible colitis. Patient was then sent the emergency center to be admitted with plan to obtain EGD and colonoscopy. She also states that Dr. Pak wanted Lead blood testing. Patient states that she has lost 30 pounds over the past month. She is feeling tired and is having a lot of pain in the epigastric area. She denies any diarrhea at this time. Yesterday's blood work revealed WBC 9, hemoglobin 12.1, platelet count 561. INR 1.2. Sodium 135, potassium 3.0, chloride 96, CO2 27, BUN 7 and creatinine 1.07. Blood sugar 133. Lactic acid 1.8. Calcium 11.8 and repeat 11. AST 64, ALT 25, alkaline phos phatase 144. Amylase and lipase were normal. Urinalysis was cloudy with 3+ ketones, moderate leukoesterase, RBCs 8, wbc's 20. The patient placed in the observation unit, consult with GI. HIDA scan was completed which reveals hyperdynamic gallbladder. Ejection fraction is calculated at 99%. No, bile duct obstruction to suggest acute cholecystitis. Review of systems Constitutional: Reports fatigue, denies malaise, Reports poor appetite, denies weakness, Denies chills, Denies fever, reports weight loss Eyes: denies blurred vision, denies pain Ears, nose, mouth and throat: Reports vertigo, Denies dysphagia, Denies headache, Denies nasal congestion, Denies nasal discharge, Denies sore throat Cardiovascular: Denies chest pain, Denies decreased exercise tolerance, Denies dyspnea on exertion, Denies edema, Denies irregular heart beat, Denies leg edema, Denies lightheadedness, Denies shortness of breath, Denies syncope Respiratory: Denies cough, Denies cough with sputum, Denies dyspnea, Denies excessive sputum, Denies hemoptysis, Denies home oxygen Gastrointestinal: Denies diarrhea, Reports loss of appetite, Reports nausea, denies vomiting, reports abdominal pain Genitourinary: Denies dysuria, Denies hematuria, Denies urgency, Denies urinary frequency Musculoskeletal: Denies frequent falls, Denies gait dysfunction, Denies myalgias Musculoskeletal: Denies lower extremity pain Integumentary: Denies pruritus, Denies rash, Denies wounds Neurological: Denies aphasia, Denies change in mentation, Denies change in speech, Denies confusion, Denies numbness, Denies seizures, Denies weakness Psychiatric: Denies anxiety, Denies depression Endocrine: Denies fatigue, Denies weight change Physical examination Gen: This is an obese 53-year-old female. Patient is seen in the nuclear medicine department. HEENT: Head is atraumatic, normocephalic. Pupils equal, round. Sclerae is anicteric. NECK: Supple. No JVD. No lymphadenopathy. No thyromegaly. LUNGS: Clear to auscultation. No wheezes or rhonchi. No intercostal retractions. HEART: Regular rate and rhythm. No murmur. ABDOMEN: Soft. Bowel sounds are present. No masses. Epigastric tenderness. EXTREMITIES: No pedal edema. No calf tenderness. Dorsalis pedis palpable bilaterally. NEUROLOGICAL: Patient is awake, alert and oriented x3. Cranial nerves 2 through 12 are grossly intact. Assessment and plan 1. Epigastric pain and weight loss. Consult with GI for EGD and colonoscopy. Toradol discontinued. Protonix 40 mg IV push daily. Continue morphine 4 mg IV every 4 hours as needed for pain, Zofran as needed for nausea. Check lead level. 2. Hypokalemia secondary to poor oral intake, replaced. Recheck lab work in the morning. 3. Acute urinary tract infection. Patient will be continued on Rocephin 1 g daily. Await urine culture. 4. Hypertension. Patient has been off medication. 5. Multiple sclerosis, stable without exacerbation. 6. Migraine headaches, stable. 7. Recurrent depression. Continue trazodone 100 mg at bedtime, Effexor 150 mg at supper. 8. Restless leg syndrome. Continue Requip 10 mg at bedtime. 9. Chronic anemia. Continue ferrous sulfate. 10. Sjogren's, stable. Continue pilocarpine 5 mg 3 times daily. 11. Hypercalcemia. Check parathyroid hormone intact. 12. DVT prophylaxis. Heparin subcu. 13. GI prophylaxis. Protonix. COVID-19 testing. Patient placed on the observation unit. Discharge plan: Home. Impression and plan of care have been directed as dictated by the signing physician. Cici Chatman nurse practitioner acting as scribe for signing physici an. Past Medical History Past Medical History: Fibromyalgia, Musculoskeletal Disorder Additional Past Medical History / Comment(s): Migraines, Shrgren syndrome, DDD, MS History of Any Multi-Drug Resistant Organisms: None Reported Past Surgical History: Appendectomy, Hysterectomy, Orthopedic Surgery Additional Past Surgical History / Comment(s): right ankle Past Anesthesia/Blood Transfusion Reactions: No Reported Reaction Past Psychological History: No Psychological Hx Reported Smoking Status: Never smoker Past Alcohol Use History: None Reported Additional Past Alcohol Use History / Comment(s): Patient has been a nonsmoker, no marijuana or illicit drug use, no alcohol use. Patient is single. Past Drug Use History: None Reported - Past Family History Father Family Medical History: AICD/Pacemaker, Congestive Heart Failure (CHF), COPD, Diabetes Mellitus, Myocardial Infarction ([place]) Additional Family Medical History / Comment(s): Father at age 83 in his sleep. He has history of AICD. Mother Family Medical History: Hypertension Additional Family Medical History / Comment(s): Mother is alive at age 77 with history of hypertension and bronchiectasis. Patient has 2 brothers with no major medical problems. Patient does not have any sisters. Patient is one daughter with no major medical problems. Medications and Allergies Home Medications Medication Instructions Recorded Confirmed Type traZODone HCL [Desyrel] 100 mg PO HS 02/13/16 02/11/20 History Cyclobenzaprine [Flexeril] 10 mg PO BID PRN 09/27/17 02/11/20 History Esomeprazole Magnesium [NexIUM] 40 mg PO BID 09/27/17 02/11/20 History Pilocarpine HCl [Salagen] 5 mg PO TID 09/27/17 02/11/20 History Venlafaxine HCl ER [Effexor XR] 150 mg PO W/SUPPER 09/27/17 02/11/20 History Vitamin B Complex 1 tab PO DAILY 09/27/17 02/11/20 History rOPINIRole HCL 10 mg PO HS 09/27/17 02/11/20 History Dextroamphetamine Sulfate 15 mg PO BID 12/20/18 02/11/20 History [Dexedrine] Ascorbic Acid [Vitamin C] 500 mg PO BID 11/25/19 02/11/20 History Diclofenac Epolamine [Flector 1.3% 1 patch TRANSDERM Q12H PRN 11/25/19 02/11/20 History Patch] Ferrous Sulfate [Iron (65 MG 325 mg PO W/SUPPER 11/25/19 02/11/20 History Elemental)] Allergies Allergy/AdvReac Type Severity Reaction Status Date / Time aspirin AdvReac Nausea Verified 02/11/20 20:54 Physical Exam Vitals: Vital Signs Temp Pulse Resp BP Pulse Ox 02/12/20 06:36 97.9 F 89 18 132/82 100 02/12/20 02:00 98.4 F 84 18 142/82 99 02/12/20 00:04 102 H 17 107/77 99 02/11/20 23:17 102 H 18 139/90 99 02/11/20 20:40 98.2 F 107 H 19 142/92 100 02/11/20 18:55 98.7 F 106 H 18 123/89 100 02/11/20 17:44 98.9 F 128 H 20 144/84 100 Intake and Output 02/11/20 02/12/20 02/12/20 22:59 06:59 14:59 Other: Weight 67.132 kg Results CBC & Chem 7: 02/12/20 06:20 02/12/20 06:20 Labs: Abnormal Lab Results - Last 24 Hours (Table) 02/11/20 02/11/20 02/11/20 Range/Units 18:02 18:19 18:19 RBC (3.80-5.40) m/uL Hgb (11.4-16.0) gm/dL Hct (34.0-46.0) % Plt Count 561 H (150-450) k/uL INR 1.2 H (<1.2) Sodium (137-145) mmol/L Potassium (3.5-5.1) mmol/L Chloride (98-107) mmol/L Creatinine (0.52-1.04) mg/dL Glucose (74-99) mg/dL Calcium (8.4-10.2) mg/dL AST (14-36) U/L Alkaline Phosphatase (38-126) U/L Total Protein (6.3-8.2) g/dL Albumin (3.5-5.0) g/dL Urine Appearance Cloudy H (Clear) Urine Protein Trace H (Negative) Urine Ketones 3+ H (Negative) Urine Bilirubin 1+ H (Negative) Ur Leukocyte Esterase Moderate H (Negative) Urine RBC 8 H (0-5) /hpf Urine WBC 20 H (0-5) /hpf Urine Mucus Few H (None) /hpf 02/11/20 02/12/20 02/12/20 Range/Units 18:19 06:20 06:20 RBC 3.52 L (3.80-5.40) m/uL Hgb 10.4 L (11.4-16.0) gm/dL Hct 32.2 L (34.0-46.0) % Plt Count (150-450) k/uL INR (<1.2) Sodium 135 L (137-145) mmol/L Potassium 3.0 L 3.3 L (3.5-5.1) mmol/L Chloride 96 L (98-107) mmol/L Creatinine 1.07 H 1.07 H (0.52-1.04) mg/dL Glucose 133 H 111 H (74-99) mg/dL Calcium 11.8 H (8.4-10.2) mg/dL AST 64 H 41 H (14-36) U/L Alkaline Phosphatase 144 H (38-126) U/L Total Protein 5.3 L (6.3-8.2) g/dL Albumin 2.9 L (3.5-5.0) g/dL Urine Appearance (Clear) Urine Protein (Negative) Urine Ketones (Negative) Urine Bilirubin (Negative) Ur Leukocyte Esterase (Negative) Urine RBC (0-5) /hpf Urine WBC (0-5) /hpf Urine Mucus (None) /hpf Microbiology - Last 24 Hours (Table) 02/11/20 18:02 Urine Culture - Preliminary Urine,Clean Catch Thrombosis Risk Factor Assmnt - DVT/VTE Prophylaxis DVT/VTE Prophylaxis: Pharmacologic Prophylaxis ordered
[2020-02-12] MEDS: ONDANSETRON 4 MG/2 ML VIAL IVP PRN ×2 (11:00→19:28)
[2020-02-12] MEDS: SODIUM CHLORIDE 0.9% 1,000 ML IV SCH (14:02)
[2020-02-12] MEDS ORDERED: bisacodyL 5 MG TABLET.DR PO STA (16:15)
[2020-02-12] MEDS: FERROUS SULFATE 325 MG TAB PO SCH ×2 (16:42→16:43)
[2020-02-12] MEDS ORDERED: PEG 3350-NA SULF,BICARB,CL/KCL 4,000 ML BOTTLE PO ONE (17:00)
[2020-02-12] MEDS: VENLAFAXINE HCL ER 150 MG CAP PO SCH (17:12)
[2020-02-12] MEDS ORDERED: rOPINIRole HCL 4 MG TABLET PO SCH (21:00)
[2020-02-12] MEDS: traZODone HCL 100 MG TAB PO SCH ×2 (21:06→23:35)
[2020-02-12] MEDS: HEPARIN SODIUM,PORCINE 5,000 UNIT/ML 1 ML VIAL SQ SCH (21:06)
[2020-02-12] MEDS: PANTOPRAZOLE 40 MG/10 ML VIAL IVP SCH (21:06)
[2020-02-12 21:19] VITALS: RESP 16
[2020-02-12] MEDS ORDERED: PROMETHAZINE INJ 25 MG in SODIUM CHLORIDE 0.9% 50 ML IVPB ONE (22:15)
[2020-02-12] MEDS ORDERED: bisacodyL 10 MG SUPP RECTAL STA (22:16)
[2020-02-13] MEDS: MORPHINE SULFATE 4 MG/ML SYRINGE IV PRN ×2 (04:06→14:28)
[2020-02-13 06:18] LABS: HCT 29.3 % (34.0-46.0); HGB 9.3 gm/dL (11.4-16.0); MCH 29.2 pg (25.0-35.0); MCHC 31.8 g/dL (31.0-37.0); MCV 91.8 fL (80.0-100.0); Mean Platelet Volume 7.4; Platelet Count 406 k/uL (150-450); RBC 3.19 m/uL (3.80-5.40); RDW 14.3 % (11.5-15.5); WBC 5.8 k/uL (3.8-10.6)
[2020-02-13 06:31] LABS: ALT 18 U/L (4-34); AST 36 U/L (14-36); African American GFR (CKD) >90 (>60 ml/min/1.73 sqM); Albumin 2.9 g/dL (3.5-5.0); Alkaline Phosphatase 97 U/L (38-126); Anion Gap 6 mmol/L; Blood Urea Nitrogen 6 mg/dL (7-17); Calcium 9.7 mg/dL (8.4-10.2); Carbon Dioxide 25 mmol/L (22-30); Chloride 108 mmol/L (98-107); Glucose 101 mg/dL (74-99); Non-African American GFR(CKD) 83 (>60 ml/min/1.73 sqM); Potassium 3.4 mmol/L (3.5-5.1); Sodium 139 mmol/L (137-145); Total Bilirubin 0.4 mg/dL (0.2-1.3); Total Protein 5.4 g/dL (6.3-8.2)
--- NOTE | 2020-02-13 07:38 | P.CONS ---
History of Present Illness - Reason for Consult Consult date: 02/12/20 Diarrhea Requesting physician: Izabela Whiteside - Chief Complaint Abnormal CT scan - History of Present Illness 54-year-old female with multiple medical comorbidities including multiple sclerosis, Sjogren syndrome, fibromyalgia, hypertension, chronic kidney disease who was sent to the hospital for evaluation for possible endoscopy after computed tomography scan performed in the outpatient setting revealed pelvic fractures and possible wall thickening which may be related to colitis. The patient reports a history of irritable bowel syndrome but had been having worsening diarrhea. She was admitted for the diarrhea earlier in the month and associated hypokalemia. However at that time the diarrhea improved and the patient was discharged home. At this time the patient reports multiple loose nonbloody bowel movements daily. She is also had nausea and vomiting over the past 2-3 weeks with approximately one nonbloody episode of emesis daily usually after eating. She reports associated epigastric pain which occurs predominantly after eating and is followed by the vomiting. On questioning the patient reports a remote history of EGD and diagnosis of peptic ulcer disease. No prior colonoscopy. Laboratory evaluation on presentation significant for WBC 5.8, hem oglobin 10.4, platelet count 417,000, total bilirubin 0.4, alkaline phosphatase 105, AST 41 and ALT 19 with an amylase of 43 and a lipase of 73. Review of Systems REVIEW OF SYSTEMS: CONSTITUTIONAL: Denies any fevers, chills, but she does report chronic fatigue and recent weight loss approximately 30 pounds. CARDIOVASCULAR: Denies any chest pain, palpitations high or low blood pressures RESPIRATORY: Denies any shortness of breath, hemoptysis or cough. GENITOURINARY: No dysuria or hematuria. MUSCULOSKELETAL: No focal weakness reported, she does ambulate with a cane. SKIN: Denies any new rashes or lesions, jaundice or pallor. PSYCHIATRIC: Denies any depression or anxiety. NEUROLOGY: Denies headache, denies any new focal deficits. EARS/NOSE/THROAT: No recent hearing change, congestion, nasal discharge or sore throat. EYES: No pain in eyes, discharge or change in vision. GASTROINTESTINAL: As per HPI. Past Medical History Past Medical History: Fibromyalgia, Musculoskeletal Disorder Additional Past Medical History / Comment(s): Migraines, Shrgren syndrome, DDD, MS History of Any Multi-Drug Resistant Organisms: None Reported Past Surgical History: Appendectomy, Hysterectomy, Orthopedic Surgery Additional Past Surgical History / Comment(s): right ankle Past Anesthesia/Blood Transfusion Reactions: No Reported Reaction Past Psychological History: No Psychological Hx Reported Smoking Status: Never smoker Past Alcohol Use History: None Reported Additional Past Alcohol Use History / Comment(s): Patient has been a nonsmoker, no marijuana or illicit drug use, no alcohol use. Patient is single. Past Drug Use History: None Reported - Past Family History Father Family Medical History: AICD/Pacemaker, Congestive Heart Failure (CHF), COPD, Diabetes Mellitus, Myocardial Infarction (HI) Additional Family Medical History / Comment(s): Father at age 83 in his sleep. He has history of AICD. Mother Family Medical History: Hypertension Additional Family Medical History / Comment(s): Mother is alive at age 77 with history of hypertension and bronchiectasis. Patient has 2 brothers with no major medical problems. Patient does not have any sisters. Patient is one daughter with no major medical problems. Medications and Allergies Home Medications Medication Instructions Recorded Confirmed Type traZODone HCL [Desyrel] 100 mg PO HS 02/13/16 02/11/20 History Cyclobenzaprine [Flexeril] 10 mg PO BID PRN 09/27/17 02/11/20 History Esomeprazole Magnesium [NexIUM] 40 mg PO BID 09/27/17 02/11/20 History Pilocarpine HCl [Salagen] 5 mg PO TID 09/27/17 02/11/20 History Venlafaxine HCl ER [Effexor XR] 150 mg PO W/SUPPER 09/27/17 02/11/20 History Vitamin B Complex 1 tab PO DAILY 09/27/17 02/11/20 History rOPINIRole HCL 10 mg PO HS 09/27/17 02/11/20 History Dextroamphetamine Sulfate 15 mg PO BID 12/20/18 02/11/20 History [Dexedrine] Ascorbic Acid [Vitamin C] 500 mg PO BID 11/25/19 02/11/20 History Diclofenac Epolamine [Flector 1.3% 1 patch TRANSDERM Q12H PRN 11/25/19 02/11/20 History Patch] Ferrous Sulfate [Iron (65 MG 325 mg PO W/SUPPER 11/25/19 02/11/20 History Elemental)] Allergies Allergy/AdvReac Type Severity Reaction Status Date / Time aspirin AdvReac Nausea Verified 02/11/20 20:54 Physical Exam Vitals: Vital Signs Temp Pulse Resp BP Pulse Ox 02/12/20 10:53 98 F 95 16 143/94 99 02/12/20 06:36 97.9 F 89 18 132/82 100 02/12/20 02:00 98.4 F 84 18 142/82 99 02/12/20 00:04 102 H 17 107/77 99 02/11/20 23:17 102 H 18 139/90 99 02/11/20 20:40 98.2 F 107 H 19 142/92 100 02/11/20 18:55 98.7 F 106 H 18 123/89 100 02/11/20 17:44 98.9 F 128 H 20 144/84 100 Intake and Output 02/11/20 02/12/20 02/12/20 22:59 06:59 14:59 Other: Voiding Method Toilet # Voids 2 Weight 67.132 kg 67.132 kg On physical examination, patient appears comfortable in no apparent distress. HEAD: Normocephalic, atraumatic. EYES: No scleral icterus. No conjunctival injection. MOUTH: No lesions, tongue midline. NECK: Trachea midline, no gross abnormalities. CHEST: Clear to auscultation with no wheezing or rhonchi appreciated. HEART: Regular rate and rhythm. ABDOMEN: Soft, obese. Bowel sounds are positive. No organomegaly. No guarding or rigidity. EXTREMITIES: No pedal edema. SKIN: No rashes, no jaundice. NEUROLOGIC: Alert and oriented x3. No focal deficits. Results CBC & Chem 7: 02/13/20 06:01 02/13/20 06:01 Labs: Abnormal Lab Results - Last 24 Hours (Table) 02/11/20 02/11/20 02/11/20 Range/Units 18:02 18:19 18:19 RBC (3.80-5.40) m/uL Hgb (11.4-16.0) gm/dL Hct (34.0-46.0) % Plt Count 561 H (150-450) k/uL INR 1.2 H (<1.2) Sodium (137-145) mmol/L Potassium (3.5-5.1) mmol/L Chloride (98-107) mmol/L Creatinine (0.52-1.04) mg/dL Glucose (74-99) mg/dL Calcium (8.4-10.2) mg/dL AST (14-36) U/L Alkaline Phosphatase (38-126) U/L Total Protein (6.3-8.2) g/dL Albumin (3.5-5.0) g/dL PTH Intact (14.0-72.0) pg/mL Urine Appearance Cloudy H (Clear) Urine Protein Trace H (Negative) Urine Ketones 3+ H (Negative) Urine Bilirubin 1+ H (Negative) Ur Leukocyte Esterase Moderate H (Negative) Urine RBC 8 H (0-5) /hpf Urine WBC 20 H (0-5) /hpf Urine Mucus Few H (None) /hpf 02/11/20 02/12/20 02/12/20 Range/Units 18:19 06:20 06:20 RBC 3.52 L (3.80-5.40) m/uL Hgb 10.4 L (11.4-16.0) gm/dL Hct 32.2 L (34.0-46.0) % Plt Count (150-450) k/uL INR (<1.2) Sodium 135 L (137-145) mmol/L Potassium 3.0 L (3.5-5.1) mmol/L Chloride 96 L (98-107) mmol/L Creatinine 1.07 H (0.52-1.04) mg/dL Glucose 133 H (74-99) mg/dL Calcium 11.8 H (8.4-10.2) mg/dL AST 64 H (14-36) U/L Alkaline Phosphatase 144 H (38-126) U/L Total Protein (6.3-8.2) g/dL Albumin (3.5-5.0) g/dL PTH Intact 13.6 L (14.0-72.0) pg/mL Urine Appearance (Clear) Urine Protein (Negative) Urine Ketones (Negative) Urine Bilirubin (Negative) Ur Leukocyte Esterase (Negative) Urine RBC (0-5) /hpf Urine WBC (0-5) /hpf Urine Mucus (None) /hpf 02/12/20 Range/Units 06:20 RBC (3.80-5.40) m/uL Hgb (11.4-16.0) gm/dL Hct (34.0-46.0) % Plt Count (150-450) k/uL INR (<1.2) Sodium (137-145) mmol/L Potassium 3.3 L (3.5-5.1) mmol/L Chloride (98-107) mmol/L Creatinine 1.07 H (0.52-1.04) mg/dL Glucose 111 H (74-99) mg/dL Calcium (8.4-10.2) mg/dL AST 41 H (14-36) U/L Alkaline Phosphatase (38-126) U/L Total Protein 5.3 L (6.3-8.2) g/dL Albumin 2.9 L (3.5-5.0) g/dL PTH Intact (14.0-72.0) pg/mL Urine Appearance (Clear) Urine Protein (Negative) Urine Ketones (Negative) Urine Bilirubin (Negative) Ur Leukocyte Esterase (Negative) Urine RBC (0-5) /hpf Urine WBC (0-5) /hpf Urine Mucus (None) /hpf Microbiology - Last 24 Hours (Table) 02/11/20 18:02 Urine Culture - Preliminary Urine,Clean Catch CT scan - abdomen: report reviewed (Computed tomography scan of the abdomen on 02/11/2020 significant for possible colon wall thickening and pelvic fracture) Assessment and Plan (1) Epigastric pain Narrative/Plan: 54-year-old female with a reported history of multiple medical conditions including irritable bowel syndrome recently seen in the hospital for diarrhea, weight loss and hypokalemia. Patient's diarrhea improved and she was discharged home. She had a computed tomography scan in the outpatient setting showing possible thickening of the colon wall as well as pelvic fractures and was sent to the emergency department for further evaluation. She reports symptoms of epigastric pain, daily nausea and vomiting, and multiple loose bowel movements daily. No history of inflammatory bowel disease. No blood per rectum. No prior colonoscopy, but she does report a remote history of EGD for peptic ulcer disease. Current Visit: Yes Status: Acute Code(s): R10.13 - EPIGASTRIC PAIN SNOMED Code(s): 09795289 (2) Nausea vomiting and diarrhea Current Visit: No Status: Acute Code(s): R11.2 - NAUSEA WITH VOMITING, UNSPECIFIED; R19.7 - DIARRHEA, UNSPECIFIED SNOMED Code(s): 1964754 Plan: Supportive care Continue to monitor CBC, BMP Okay for liquid diet Nothing by mouth after midnight Extensive discussion with the patient regarding endoscopic evaluation, the risks, benefits and possible complications of proceeding with the procedure with all of her questions answered to her satisfaction We'll plan for EGD and colonoscopy tomorrow Thank you for allowing us to participate in the care of the patient we will continue to follow
[2020-02-13] MEDS: HEPARIN SODIUM,PORCINE 5,000 UNIT/ML 1 ML VIAL SQ SCH (08:22)
[2020-02-13] MEDS: PILOCARPINE 5 MG TAB PO SCH ×2 (08:22→16:41)
[2020-02-13] MEDS: PANTOPRAZOLE 40 MG/10 ML VIAL IVP SCH (08:22)
[2020-02-13] MEDS: SODIUM CHLORIDE 0.9% 1,000 ML IV SCH (08:28)
[2020-02-13] MEDS ORDERED: PROPOFOL 10 MG/ML 20 ML VIAL IV ONE (12:58)
[2020-02-13] MEDS ORDERED: LIDOCAINE 1% INJ 10MG/ML (20 ML MDV) ONE (12:58)
[2020-02-13] MEDS ORDERED: IV FLUID CONTINUATION 600 ML IV ONE (13:00)
[2020-02-13 13:03] VITALS: BMI 25.4
--- NOTE | 2020-02-13 13:22 | P.PCN ---
Date of Procedure: 02/13/20 Description of Procedure: BRIEF HISTORY: 54-year-old female with multiple medical comorbidities including multiple sclerosis, Sjogren syndrome, fibromyalgia, hypertension, chronic kidney disease who was sent to the hospital for evaluation for possible endoscopy after computed tomography scan performed in the outpatient setting revealed pelvic fractures and possible wall thickening which may be related to colitis. The patient reports a history of irritable bowel syndrome but had been having worsening diarrhea. She was admitted for the diarrhea earlier in the month and associated hypokalemia. However at that time the diarrhea improved and the patient was discharged home. At this time the patient reports multiple loose nonbloody bowel movements daily. She is also had nausea and vomiting over the past 2-3 weeks with approximately one nonbloody episode of emesis daily usually after eating. She reports associated epigastric pain which occurs predominantly after eating and is followed by the vomiting. On questioning the patient reports a remote history of EGD and diagnosis of peptic ulcer disease. No prior colonoscopy. PROCEDURE PERFORMED: Esophagogastroduodenoscopy with biopsy. PREOPERATIVE DIAGNOSIS: Epigastric abdominal pain, anemia. ESTIMATED BLOOD LOSS: Minimal. IV sedation per anesthesia. PROCEDURE: After informed consent was obtained, the patient was brought into the endoscopy unit. IV sedation was administered by Anesthesia under continuous monitoring. Initially the Olympus GIF-190 video endoscope was inserted into the mouth. Esophagus intubated without any difficulty. It was gradually advanced into the stomach and duodenum and carefully examined. The bulb and the second part of the duodenum appeared normal, with biopsies taken. The scope at this time was withdrawn to the stomach, adequately insufflated with air, and upon careful e xamination, mucosa of the antrum, body, cardia and the fundus appeared normal, except for some mild scattered erythema in the antrum and body suggestive of mild gastritis with biopsies taken. There were also multiple benign-appearing subcentimeter polyps in the gastric body which were biopsied. The scope was then withdrawn into the esophagus. The GE junction was located at 37 cm from the incisors, with biopsies taken. The esophagus appeared normal. There were no erosions or ulcerations seen and the patient tolerated the procedure well. IMPRESSION: 1. Mild gastritis and from body, biopsied. 2. Gastric polyps biopsied. 3. Duodenal biopsies. 4. GE junction biopsies. RECOMMENDATIONS: The findings of this examination were discussed with the patient. Okay to resume diet. Okay to resume medications. Await pathology from biopsies. Follow up after discharge for colonoscopy.
[2020-02-13 13:33] VITALS: TEMP 98.1
--- NOTE | 2020-02-13 13:50 | P.DS ---
Providers Date of admission: 02/11/20 19:56 Expected date of discharge: 02/13/20 Attending physician: Izabela Whiteside Consults: 02/11/20 20:04 Consult Physician Stat Consulting Provider: Charles Quintana Consult Reason/Comments: Epigastric pain, weight loss, nausea and vomiting Do you want consulting provider notified?: Yes 02/12/20 05:42 Consult Physician Routine Consulting Provider: Shanique Womack Consult Reason/Comments: Colonoscopy, Colitis Do you want consulting provider notified?: Yes Primary care physician: Sujit Pak [facility] Course: This is a 54-year-old female patient of Dr. Pak with a past medical history of fibromyalgia, MS, Sjogren's, degenerative disc disease, hypertension, chronic kidney disease under the care of Dr. Christianson. Regarding MS, she is in the process of switching physicians from Dr. Kolb to Dr. Diaz. She utilizes cane for ambulation due to left-sided weakness. Patient was recently hospitalized on January 1314 for diarrhea and dehydration with hypokalemia initially presented with potassium of 2.9. Diarrhea resolved, no abdominal pain and patient was discharged home. Patient has subsequent followed up with Dr. Pak in the office and was scheduled for CAT scan of the abdomen and pelvis without contrast yesterday which revealed pelvic fractures correlate for possible colitis. Patient was then sent the emergency center to be admitted with plan to obtain EGD and colonoscopy. She also states that Dr. Pak wanted Lead blood testing. Patient states that she has lost 30 pounds over the past month. She is feeling tired and is having a lot of pain in the epigastric area. She denies any diarrhea at this time. Yesterday's blood work revealed WBC 9, hemoglobin 12.1, platelet count 561. INR 1.2. Sodium 135, potassium 3.0, chloride 96, CO2 27, BUN 7 and creatinine 1.07. Blood sugar 133. Lactic acid 1.8. Calcium 11.8 and repeat 11. AST 64, ALT 25, alkaline phosphatase 144. Amylase and lipase were normal. Urinalysis was cloudy with 3+ ketones, moderate leukoesterase, RBCs 8, wbc's 20. The patient placed in the observation unit, consult with GI. HIDA scan was completed which reveals hyperdynamic gallbladder. Ejection fraction is calculated at 99%. No, bile duct obstruction to suggest acute cholecystitis. 02/12: Patient has been seen by Dr. Quintana with plan for EGD and colonoscopy today, however, patient refused to do the colonoscopy prep and thus she will only have EGD today. Patient continues to have some tenderness in the epigastric area but is improved from yesterday. She has been afebrile, heart rate 87, blood pressure 144/79, pulse ox 93% on room air. Repeat blood work reveals WBC 5.8, hemoglobin 9.3. Sodium 139, potassium 3.4, chloride 108, CO2 25, BUN 6 and creatinine 0.82. Blood sugar 101. Bilirubin and liver function tests normal. TSH normal at 2.460 and parathyroid hormone 13.6. Lead level 0.5 and normal is below 5.0. EGD revealed mild gastritis status post biopsy, gastric polyps biopsy, duodenal biopsies, GE junction biopsies. Patient is been cleared to resume medications and resume diet. Patient will follow-up as an outpatient for colonoscopy. Patient will be discharged home today in stable condition. Assessment and plan 1. Epigastric pain and weight loss. 2. Hypokalemia secondary to poor oral intake, replaced. 3. Acute urinary tract infection. 4. Hypertension. 5. Multiple sclerosis, stable without exacerbation. 6. Migraine headaches, stable. 7. Recurrent depression. 8. Restless leg syndrome. 9. Chronic anemia. 10. Sjogren's, stable. 11. Hypercalcemia secondary to dehydration. 12. COVID-19 infection not present. Discharge plan: Home. Impression and plan of care have been directed as dictated by the signing physician. Cici Chatman nurse practitioner acting as scribe for signing physician. Patient Condition at Discharge: Good Plan - Discharge Summary Discharge Rx Participant: No New Discharge Prescriptions: New Pantoprazole Sodium [Protonix] 40 mg PO AC-BID #60 tablet. Continue traZODone HCL [Desyrel] 100 mg PO HS Vitamin B Complex 1 tab PO DAILY Cyclobenzaprine [Flexeril] 10 mg PO BID PRN PRN Reason: Muscle Pain Venlafaxine HCl ER [Effexor XR] 150 mg PO W/SUPPER rOPINIRole HCL 10 mg PO HS Pilocarpine HCl [Salagen] 5 mg PO TID Dextroamphetamine Sulfate [Dexedrine] 15 mg PO BID Ferrous Sulfate [Iron (65 MG Elemental)] 325 mg PO W/SUPPER Ascorbic Acid [Vitamin C] 500 mg PO BID Diclofenac Epolamine [Flector 1.3% Patch] 1 patch TRANSDERM Q12H PRN PRN Reason: Pain Discontinued Esomeprazole Magnesium [NexIUM] 40 mg PO BID Discharge Medication List traZODone HCL [Desyrel] 100 mg PO HS 02/13/16 [History] Cyclobenzaprine [Flexeril] 10 mg PO BID PRN 09/27/17 [History] Pilocarpine HCl [Salagen] 5 mg PO TID 09/27/17 [History] Venlafaxine HCl ER [Effexor XR] 150 mg PO W/SUPPER 09/27/17 [History] Vitamin B Complex 1 tab PO DAILY 09/27/17 [History] rOPINIRole HCL 10 mg PO HS 09/27/17 [History] Dextroamphetamine Sulfate [Dexedrine] 15 mg PO BID 12/20/18 [History] Ascorbic Acid [Vitamin C] 500 mg PO BID 11/25/19 [History] Diclofenac Epolamine [Flector 1.3% Patch] 1 patch TRANSDERM Q12H PRN 11/25/19 [History] Ferrous Sulfate [Iron (65 MG Elemental)] 325 mg PO W/SUPPER 11/25/19 [History] Pantoprazole Sodium [Protonix] 40 mg PO AC-BID #60 tablet. 02/13/20 [Rx] Follow up Appointment(s)/Referral(s): Sujit Pak DO [Primary Care Provider] - 1 Week (Physicians office will call with appointment date and time) Charles Quintana MD [STAFF PHYSICIAN] - 03/11/20 9:30 am (With Annalisa Asher NP) Patient Instructions/Handouts: Gastritis (DC), Acute Abdominal Pain (DC), Gastric Polyps (DC) Discharge Disposition: HOME SELF-CARE
[2020-02-13 14:13] VITALS: BP 149/78; PULSE 97
[2020-02-13] MEDS: FERROUS SULFATE 325 MG TAB PO SCH (16:41)
[2020-02-13] MEDS: VENLAFAXINE HCL ER 150 MG CAP PO SCH (16:41)
== END 2020-02-13 17:15 | disposition home or self-care (01) ==
LOC: EC 17:41 → 1SOBS 19:56 → OBSVTOIN 02-13 12:06 → INTOOBSV 02-13 12:06 → UNDODISIN 02-13 17:15
PROVIDERS: ADMIT Family Medicine; ATTEND Family Medicine
PROC: 0DB98ZX Excision of Duodenum, Via Natural or Artificial Opening Endoscopic, Diagnostic (ICD-10-PCS; principal; 2020-02-13 12:30)
PROC: 0DB68ZX Excision of Stomach, Via Natural or Artificial Opening Endoscopic, Diagnostic (ICD-10-PCS; principal; 2020-02-13 12:30)
PROC: 0DB78ZX Excision of Stomach, Pylorus, Via Natural or Artificial Opening Endoscopic, Diagnostic (ICD-10-PCS; principal; 2020-02-13 12:30)
PROC: 0DB48ZX Excision of Esophagogastric Junction, Via Natural or Artificial Opening Endoscopic, Diagnostic (ICD-10-PCS; principal; 2020-02-13 12:30)
DX: K29.70 Gastritis, unspecified, without bleeding (principal); G35 Multiple sclerosis; K31.7 Polyp of stomach and duodenum; M35.00 Sjogren syndrome, unspecified; M79.7 Fibromyalgia; I12.9 Hypertensive chronic kidney disease with stage 1 through stage 4 chronic kidney disease, or unspecified chronic kidney disease; N18.9 Chronic kidney disease, unspecified; K58.9 Irritable bowel syndrome, unspecified; K58.0 Irritable bowel syndrome with diarrhea; E86.0 Dehydration; E87.6 Hypokalemia; N39.0 Urinary tract infection, site not specified; G43.909 Migraine, unspecified, not intractable, without status migrainosus; Z11.59 Encounter for screening for other viral diseases; F33.9 Major depressive disorder, recurrent, unspecified; G25.81 Restless legs syndrome; E83.52 Hypercalcemia; E66.9 Obesity, unspecified; Z68.25 Body mass index [BMI] 25.0-25.9, adult; D64.9 Anemia, unspecified; R00.0 Tachycardia, unspecified; Z90.49 Acquired absence of other specified parts of digestive tract; Z79.899 Other long term (current) drug therapy; Z88.6 Allergy status to analgesic agent; K29.50 Unspecified chronic gastritis without bleeding; Z98.890 Other specified postprocedural states; Z90.710 Acquired absence of both cervix and uterus; Z87.11 Personal history of peptic ulcer disease; Z82.49 Family history of ischemic heart disease and other diseases of the circulatory system; Z83.3 Family history of diabetes mellitus; Z82.5 Family history of asthma and other chronic lower respiratory diseases
CPT/HCPCS: 96376; 96361; 96365; 96375 ×2; 99285; 36415; 88305; 80053 ×3; 84443; 82150; 83605; 83655; 83690; 85025 ×2; 85027; 85610; 85730; 81001; 83970; 87086; 74176; 78227; 43239; G0378 ×3; U0003; A9537; J2270 ×2; J1644 ×2; J2550; J3480; J2405 ×2; J2805; J2001; J0696; J1885 ×2; J2704; C9113 ×3

== ENCOUNTER → 2020-02-11 | Outpatient (CLI) | payer MEDICARE ==
--- NOTE | 2020-02-11 16:41 | CT ---
EXAMINATION TYPE: CT abdomen pelvis wo con DATE OF EXAM: 02/11/2020 COMPARISON: CT 01/27/2011, plain film 11/22/2019 HISTORY: Epigastric abdominal pain, abnormal weight loss, vomiting and diarrhea CT DLP: 353.1 mGycm Automated exposure control for dose reduction was used. TECHNIQUE: Helical acquisition of images from the lung bases through the pelvis. FINDINGS: Lack of intravenous contrast could compromise sensitivity of the exam. LUNG BASES: No significant abnormality is appreciated. AORTA: No significant abnormality is appreciated. LIVER/GB: Low-attenuation within the liver may be due to hepatic steatosis, gallbladder is within nor mal limits. PANCREAS: No significant abnormality is seen. SPLEEN: Probable splenule noted lateral to the inferior margin of the spleen. ADRENALS: No significant abnormality is seen. KIDNEYS: No significant abnormality is seen. REPRODUCTIVE ORGANS: Uterus and adnexal structures are not seen URINARY BLADDER: No significant abnormality is seen. BOWEL: Colonic interposition noted anterior to the right lobe of the liver inferiorly. Question some colonic wall thickening. FREE AIR: No Free Air is visible. ASCITES: None visible. PELVIC ADENOPATHY: None visualized. RETROPERITONEAL ADENOPATHY: No Retroperitoneal Adenopathy visible. OSSEOUS STRUCTURES: There is a spinal curvature. Degenerative disc changes present at the lower lumb ar spine. Bilateral inferior pubic ramus fractures are present, superior pubic ramus fractures presen t showing callus formation and healing as on prior plain film. Sclerotic density along the left sacra l ala suggests insufficiency fracture, some sclerosis also present on the right. IMPRESSION: NONCONTRAST EXAM. PELVIC FRACTURES. CORRELATE FOR POSSIBLE COLITIS.
== END | disposition home or self-care (01) ==
LOC: RADCTMAIN 16:09
PROVIDERS: ATTEND Family Medicine
DX: S32.89XA Fracture of other parts of pelvis, initial encounter for closed fracture (principal); R63.4 Abnormal weight loss; D64.9 Anemia, unspecified
CPT/HCPCS: 74176

== ENCOUNTER → 2020-04-28 | Outpatient (CLI) | payer MEDICARE ==
[2020-04-28 16:57] LABS: Basophils % (A) 0 %; Eosinophils % (A) 0 %; HCT 36.4 % (34.0-46.0); HGB 11.8 gm/dL (11.4-16.0); Lymphocytes # (A) 2.1 k/uL (1.0-4.8); Lymphocytes % (A) 19 %; MCH 29.5 pg (25.0-35.0); MCHC 32.4 g/dL (31.0-37.0); MCV 91.1 fL (80.0-100.0); Mean Platelet Volume 7.2; Monocytes # (A) 0.6 k/uL (0-1.0); Monocytes % (A) 6 %; Neutrophils # (A) 8.1 k/uL (1.3-7.7); Neutrophils % (A) 74 %; Platelet Count 429 k/uL (150-450); RDW 15.3 % (11.5-15.5)
[2020-04-29 05:48] LABS: T4, Free (Free Thyroxine) 1.3 ng/dL (0.80-1.80)
[2020-04-29 05:54] LABS: Albumin 4.8 g/dL (3.80-4.90); Albumin/Globulin Ratio 2.18 (1.60-3.17); Anion Gap 13.5 mmol/L (4.00-12.00); Calcium 10.4 mg/dL (8.7-10.3); Carbon Dioxide 23.5 mmol/L (21.6-31.8); Globulin 2.2 g/dL (1.6-3.3); Non-African American GFR(CKD) 64.7 (60.0-200.0); Potassium 3.9 mmol/L (3.5-5.5); Total Bilirubin 0.4 mg/dL (0.3-1.2)
== END | disposition home or self-care (01) ==
LOC: LABWHC1 16:12
PROVIDERS: ATTEND Nurse Practitioner Acute Care
DX: G35 Multiple sclerosis (principal); E55.9 Vitamin D deficiency, unspecified; Z51.81 Encounter for therapeutic drug level monitoring
CPT/HCPCS: 36415; 80053; 82306; 82607; 84207; 84439; 84443; 84481; 85025

== ENCOUNTER → 2020-09-18 | Outpatient (CLI) | payer MEDICARE ==
[2020-09-18 16:56] LABS: Appearance,Urine Clear (Clear); Bilirubin,Urine Negative (Negative); Blood,Urine Negative (Negative); Color,Urine Yellow; Glucose,Urine (UA) Negative (Negative); Hyaline Casts,Urine 1 /lpf (0-2); Ketones,Urine Negative (Negative); Leukocyte Esterase,Urine Trace (Negative); Mucus,Urine Rare /hpf; Nitrite,Urine Negative (Negative); Protein,Urine Trace (Negative); RBC,Urine 1 /hpf (0-5); Specific Gravity,Urine 1.024 (1.001-1.035); Squamous Epithelial Cell,Urine 1 /hpf (0-4); Urobilinogen,Urine <2.0 mg/dL (<2.0); WBC,Urine 4 /hpf (0-5)
[2020-09-18 17:15] LABS: Creatinine,Urine Random 88.1 mg/dL; Protein/Creatinine Ratio,Urine 0.216
[2020-09-18 18:00] LABS: ALT 38 U/L (4-34); AST 28 U/L (14-36); African American GFR (CKD) >90 (>60 ml/min/1.73 sqM); Albumin/Globulin Ratio 1.4; Alkaline Phosphatase 116 U/L (38-126); Anion Gap 9 mmol/L; Blood Urea Nitrogen 26 mg/dL (7-17); Calcium 9.8 mg/dL (8.4-10.2); Carbon Dioxide 28 mmol/L (22-30); Chloride 103 mmol/L (98-107); Globulin 2.8 g/dL; Glucose 183 mg/dL (74-99); Magnesium 1.8 mg/dL (1.6-2.3); Non-African American GFR(CKD) >90 (>60 ml/min/1.73 sqM); Phosphorus 3.3 mg/dL (2.5-4.5); Potassium 4.1 mmol/L (3.5-5.1); Sodium 140 mmol/L (137-145); Total Bilirubin 0.5 mg/dL (0.2-1.3); Total Protein 6.8 g/dL (6.3-8.2); Uric Acid 3.5 mg/dL (3.7-7.4)
[2020-09-18 23:19] LABS: HCT 39.3 % (37.2-46.3); HGB 12.4 g/dL (12.0-15.0); MCH 31.6 pg (27.0-32.0); MCHC 31.6 g/dL (32.0-37.0); Mean Platelet Volume 9.1 fL (9.5-12.2); Platelet Count 384 X 10*3/uL (140-440); RBC 3.93 X 10*6/uL (4.10-5.20); RDW 14.4 % (11.5-14.5); WBC 9.73 X 10*3/uL (4.50-10.00)
[2020-09-19 06:11] LABS: % Iron Saturation 22.37 (12.00-45.00); Iron 83 ug/dL (50-170); Total Iron Binding Capacity 371 ug/dL (228-460)
[2020-09-19 06:25] LABS: Ferritin 27.6 ng/mL (10.0-291.0)
== END | disposition home or self-care (01) ==
LOC: LABWHC1 15:48
PROVIDERS: ATTEND Internal Medicine
DX: N17.9 Acute kidney failure, unspecified (principal)
CPT/HCPCS: 36415; 80053; 81001; 82306; 82570; 82728; 83540; 83550; 83735; 83970; 84100; 84156; 84550; 85027

== ENCOUNTER → 2021-01-26 | Outpatient (CLI) | payer MEDICARE ==
[2021-01-27 00:45] LABS: HGB 12.1 g/dL (12.0-15.0); MCH 31.8 pg (27.0-32.0); MCHC 32.7 g/dL (32.0-37.0); MCV 97.1 fL (80.0-97.0); Mean Platelet Volume 9.2 fL (9.5-12.2); Platelet Count 415 X 10*3/uL (140-440); RBC 3.81 X 10*6/uL (4.10-5.20); RDW 15.3 % (11.5-14.5); WBC 13.18 X 10*3/uL (4.50-10.00)
[2021-01-27 07:04] LABS: T4, Free (Free Thyroxine) 1.3 ng/dL (0.80-1.80)
[2021-01-27 07:08] LABS: African American GFR (CKD) 66.4 (60.0-200.0); Albumin 4.5 g/dL (3.80-4.90); Albumin/Globulin Ratio 2.05 (1.60-3.17); Anion Gap 11.1 mmol/L (4.00-12.00); BUN/Creat Ratio 22.73 Ratio (12.00-20.00); Calcium 9.6 mg/dL (8.7-10.3); Carbon Dioxide 27.9 mmol/L (21.6-31.8); Globulin 2.2 g/dL (1.6-3.3); Non-African American GFR(CKD) 57.3 (60.0-200.0); Potassium 3.8 mmol/L (3.5-5.5); Total Bilirubin 0.4 mg/dL (0.3-1.2); Total Protein 6.7 g/dL (6.2-8.2)
[2021-01-27 07:25] LABS: Erythrocyte Sedimentation Rate 49 mm/Hr (0-30)
[2021-01-27 10:02] LABS: Hemoglobin A1C 6.9 % (4.0-6.0)
== END | disposition home or self-care (01) ==
LOC: LABWHC1 15:44
PROVIDERS: ATTEND Family Medicine
DX: I50.9 Heart failure, unspecified (principal); L03.90 Cellulitis, unspecified; M54.2 Cervicalgia; R22.0 Localized swelling, mass and lump, head; G89.29 Other chronic pain
CPT/HCPCS: 36415; 80053; 82306; 82533; 83036; 83880; 84439; 84443; 85027; 85652

== ENCOUNTER → 2021-02-16 | Outpatient (CLI) | payer MEDICARE ==
[2021-02-16 16:59] LABS: Appearance,Urine Clear (Clear); Bilirubin,Urine Negative (Negative); Blood,Urine Negative (Negative); Color,Urine Yellow; Glucose,Urine (UA) Negative (Negative); Ketones,Urine Negative (Negative); Leukocyte Esterase,Urine Large (Negative); Mucus,Urine Rare /hpf; Nitrite,Urine Negative (Negative); PH, Urine 5.5 (5.0-8.0); Protein,Urine Trace (Negative); RBC,Urine 1 /hpf (0-5); Specific Gravity,Urine 1.029 (1.001-1.035); Squamous Epithelial Cell,Urine 2 /hpf (0-4); Urobilinogen,Urine <2.0 mg/dL (<2.0); WBC,Urine 43 /hpf (0-5)
[2021-02-16 17:00] LABS: Creatinine,Urine Random 165.9 mg/dL; Protein/Creatinine Ratio,Urine 0.078
[2021-02-17 00:48] LABS: HCT 34.9 % (37.2-46.3); MCH 31.6 pg (27.0-32.0); MCHC 31.5 g/dL (32.0-37.0); MCV 100.3 fL (80.0-97.0); Mean Platelet Volume 9.4 fL (9.5-12.2); Platelet Count 394 X 10*3/uL (140-440); RBC 3.48 X 10*6/uL (4.10-5.20); RDW 15.3 % (11.5-14.5); WBC 10.24 X 10*3/uL (4.50-10.00)
[2021-02-17 09:59] LABS: % Iron Saturation 20.26 (12.00-45.00); African American GFR (CKD) 84.6 (60.0-200.0); Albumin 4.6 g/dL (3.80-4.90); Albumin/Globulin Ratio 2.09 (1.60-3.17); Anion Gap 16.1 mmol/L (4.00-12.00); BUN/Creat Ratio 27.78 Ratio (12.00-20.00); Calcium 9.5 mg/dL (8.7-10.3); Carbon Dioxide 21.9 mmol/L (21.6-31.8); Globulin 2.2 g/dL (1.6-3.3); Magnesium 1.7 mg/dL (1.5-2.4); Phosphorus 3.2 mg/dL (2.4-5.1); Potassium 3.7 mmol/L (3.5-5.5); Total Bilirubin 0.4 mg/dL (0.3-1.2); Total Protein 6.8 g/dL (6.2-8.2)
[2021-02-17 10:07] LABS: Uric Acid 4.7 mg/dL (2.9-7.7)
[2021-02-17 10:16] LABS: Ferritin 57.3 ng/mL (10.0-291.0)
== END | disposition home or self-care (01) ==
LOC: LABWHC1 16:19
PROVIDERS: ATTEND Nurse Practitioner Family
DX: N17.9 Acute kidney failure, unspecified (principal); D64.9 Anemia, unspecified; N39.0 Urinary tract infection, site not specified; R80.9 Proteinuria, unspecified; N25.81 Secondary hyperparathyroidism of renal origin; E55.9 Vitamin D deficiency, unspecified; M10.9 Gout, unspecified
CPT/HCPCS: 36415; 80053; 81001; 82306; 82570; 82728; 83540; 83550; 83735; 83970; 84100; 84156; 84550; 85027

== ENCOUNTER → 2021-02-16 | Outpatient (CLI) | payer MEDICARE ==
--- NOTE | 2021-02-17 09:54 | ECHOF ---
Referral Reason:R00.0 Sinus tachycardia MEASUREMENTS -------- HEIGHT: 162.6 cm WEIGHT: 78.9 kg BP: IVSd: 1.2 cm (0.6 - 1.1) LVIDd: 3.5 cm (3.9 - 5.3) LVPWd: 1.1 cm (0.6 - 1.1) IVSs: 1.5 cm LVIDs: 2.8 cm LVPWs: 1.2 cm LAESV Index (A-L): 27.24 ml/m Ao Diam: 2.7 cm (2.0 - 3.7) AV Cusp: 1.8 cm (1.5 - 2.6) MV EXCURSION: 17.701 mm (> 18.000) MV EF SLOPE: 111 mm/s (70 - 150) EPSS: 0.2 cm MV E Frederick: 0.69 m/s MV DecT: 198 ms MV A Frederick: 1.10 m/s MV E/A Ratio: 0.63 RAP: 5.00 mmHg RVSP: 16.58 mmHg FINDINGS -------- Sinus rhythm. Resting tachycardia (HR>100bpm). This was a technically adequate study. The left ventricular size is normal. Left ventricular wall thickness is normal. Overall left vent ricular systolic function is normal with, an EF between 55 - 60 %. The diastolic filling pattern is normal for the age of the patient 12.16. The right ventricle is normal in size. Normal LA size by volume 22+/-6 ml/m2. The right atrial size is normal. The aortic valve is trileaflet, and appears structurally normal. No aortic stenosis or regurgitation. The mitral valve is normal. Mild mitral regurgitation is present. The tricuspid valve appears structurally normal. Trace tricuspid regurgitation present. Right cordelia tricular systolic pressure is normal at < 35 mmHg. There is no pulmonic regurgitation present. The aortic root size is normal. Echo free space represents a pericardial fat pad. CONCLUSIONS -------- 1. Left ventricular wall thickness is normal. 2. Overall left ventricular systolic function is normal with, an EF between 55 - 60 %. 3. Normal LA size by volume 22+/-6 ml/m2. 4. The aortic valve is trileaflet, and appears structurally normal. No aortic stenosis or regurgitati on. 5. Mild mitral regurgitation is present. 6. Trace tricuspid regurgitation present. 7. Echo free space represents a pericardial fat pad. FINISH CARPENTER: Jen Dubon RDCS
== END | disposition home or self-care (01) ==
LOC: RADECHMAIN 16:41
PROVIDERS: ATTEND Family Medicine
DX: I08.1 Rheumatic disorders of both mitral and tricuspid valves (principal)
CPT/HCPCS: 93306

== ENCOUNTER 2021-03-22 20:42 | Observation (INO) | payer MEDICARE ==
[2021-03-22] MEDS ORDERED: ONDANSETRON 4 MG/2 ML VIAL IVP STA (21:52)
[2021-03-22] MEDS ORDERED: SODIUM CHLORIDE 0.9% 1,000 ML IV STA (21:52)
[2021-03-22] MEDS ORDERED: FAMOTIDINE 20 MG/2 ML VIAL IV STA (21:59)
--- NOTE | 2021-03-22 22:00 | ED ---
Nausea/Vomiting/Diarrhea HPI - General Chief complaint: Nausea/Vomiting/Diarrhea Stated complaint: Vomiting Time Seen by Provider: 03/22/21 21:00 Source: patient Mode of arrival: wheelchair Limitations: no limitations - History of Present Illness Initial comments: 55 year-old female patient presents to the emergency department for evaluation of vomiting and diarrhea. Patient states the diarrhea started two months ago. States whenever she eats or drinks she has a bowel movement. States she has been taking over the counter antidiarrheals as well as lomotil which did start to control her symptoms. States three days ago she started vomiting. States she is unable to keep down any food or fluids. State she has been having dizziness and weakness. She denies having a fever. States she is having midepigastric abdominal pain. Denies history of abdominal surgery. Denies any hematochezia, melena, or hematemesis. Patient denies any recent rash, cough, shortness of breath, chest pain, back pain, numbness, tingling, hematuria, dysuria, urinary urgency, urinary frequency, headache, visual changes, or any other complaints. Patient also reported injury to the left foot a couple of weeks ago. States it is still hurting. She is able to ambulate. Denies numbness or tingling. - Related Data Home Medications Medication Instructions Recorded Confirmed traZODone HCL [Desyrel] 100 mg PO HS 02/13/16 02/11/20 Cyclobenzaprine [Flexeril] 10 mg PO BID PRN 09/27/17 02/11/20 Pilocarpine HCl [Salagen] 5 mg PO TID 09/27/17 02/11/20 Venlafaxine HCl ER [Effexor XR] 150 mg PO W/SUPPER 09/27/17 02/11/20 Vitamin B Complex 1 tab PO DAILY 09/27/17 02/11/20 rOPINIRole HCL 10 mg PO HS 09/27/17 02/11/20 Dextroamphetamine Sulfate 15 mg PO BID 12/20/18 02/11/20 [Dexedrine] Ascorbic Acid [Vitamin C] 500 mg PO BID 11/25/19 02/11/20 Diclofenac Epolamine [Flector 1.3% 1 patch TRANSDERM Q12H PRN 11/25/19 02/11/20 Patch] Ferrous Sulfate [Iron (65 MG 325 mg PO W/SUPPER 11/25/19 02/11/20 Elemental)] Previous Rx's Medication Instructions Recorded Pantoprazole Sodium [Protonix] 40 mg PO AC-BID #60 tablet. 02/13/20 Allergies Allergy/AdvReac Type Severity Reaction Status Date / Time aspirin AdvReac Nausea Verified 02/11/20 20:54 Review of Systems ROS Statement: Those systems with pertinent positive or pertinent negative responses have been documented in the HPI. ROS Other: All systems not noted in ROS Statement are negative. Past Medical History Past Medical History: Fibromyalgia, Musculoskeletal Disorder Additional Past Medical History / Comment(s): Migraines, Shrgren syndrome, DDD, MS History of Any Multi-Drug Resistant Organisms: ESBL Date of last positivie culture/infection: 10/05/20 MDRO Source:: ESBL URINE Past Surgical History: Appendectomy, Hysterectomy, Orthopedic Surgery Additional Past Surgical History / Comment(s): right ankle Past Anesthesia/Blood Transfusion Reactions: No Reported Reaction Past Psychological History: No Psychological Hx Reported Smoking Status: Never smoker Past Alcohol Use History: None Reported Past Drug Use History: None Reported - Past Family History Father Family Medical History: AICD/Pacemaker, Congestive Heart Failure (CHF), COPD, Diabetes Mellitus, Myocardial Infarction ([place]) Additional Family Medical History / Comment(s): Father at age 83 in his sleep. He has history of AICD. Mother Family Medical History: Hypertension Additional Family Medical History / Comment(s): Mother is alive at age 77 with history of hypertension and bronchiectasis. Patient has 2 brothers with no major medical problems. Patient does not have any sisters. Patient is one daughter with no major medical problems. General Exam Limitations: no limitations General appearance: alert, in no apparent distress, other (This is a well- developed, well-nourished adult female patient in no acute distress. Vital signs upon presentation are temperature 98.3F, pulse 110, respirations 20, blood pressure 131/81, pulse ox 99% on room air.) Eye exam: Present: normal appearance, PERRL, EOMI. Absent: scleral icterus, conjunctival injection, periorbital swelling ENT exam: Present: normal exam, normal oropharynx, mucous membranes moist Respiratory exam: Present: normal lung sounds bilaterally. Absent: respiratory distress, wheezes, rales, rhonchi, stridor Cardiovascular Exam: Present: normal rhythm, tachycardia, normal heart sounds. Absent: regular rate, systolic murmur, diastolic murmur, rubs, gallop, clicks GI/Abdominal exam: Present: soft, normal bowel sounds. Absent: distended, tenderness, guarding, rebound, rigid Neurological exam: Present: alert, oriented X3, CN II-XII intact Psychiatric exam: Present: normal affect, normal mood Skin exam: Present: warm, dry, intact, normal color. Absent: rash Course Vital Signs 03/22/21 03/22/21 03/23/21 20:48 22:32 00:05 Temperature 98.3 F Pulse Rate 110 H 103 H 100 Respiratory 20 16 18 Rate Blood Pressure 131/81 129/54 132/62 O2 Sat by Pulse 99 97 96 Oximetry Procedures - Orthopedic Splinting/Casting Injury #1 Side: left Lower Extremity Injury Location: short leg, foot Lower Extremity Immobilizer: posterior splint, Peter wrap, synthetic pre-padded splint Medical Decision Making - Medical Decision Making 55-year-old female patient presents to the emergency department today for evaluation of vomiting for the last 3 days diarrhea for the last month. She also reported left foot pain from an injury a couple of weeks ago. Physical examination reveals soft nontender abdomen. No CVA tenderness. She was unable to provide a stool sample here. Labs reviewed and did reveal normal white blood cell count. There was evidence for UTI, review of previous cultures and sensitivity shows ESBL. Patient did have Macrobid and Karen. She'll be admitted to the hospital for IV antibiotics due to multidrug resistant organism. Splint was placed to the left foot. Patient is agreeable to this plan. My attending is Dr. Martell. - Lab Data Result diagrams: 03/22/21 22:37 03/22/21 22:37 Lab Results 03/22/21 03/22/21 03/22/21 Range/Units 22:37 22:37 22:37 WBC 8.3 (3.8-10.6) k/uL RBC 4.09 (3.80-5.40) m/uL Hgb 12.9 (11.4-16.0) gm/dL Hct 39.3 (34.0-46.0) % MCV 96.0 (80.0-100.0) fL MCH 31.5 (25.0-35.0) pg MCHC 32.8 (31.0-37.0) g/dL RDW 14.2 (11.5-15.5) % Plt Count 529 H (150-450) k/uL MPV 7.0 Neutrophils % 71 % Lymphocytes % 18 % Monocytes % 7 % Eosinophils % 0 % Basophils % 1 % Neutrophils # 5.9 (1.3-7.7) k/uL Lymphocytes # 1.5 (1.0-4.8) k/uL Monocytes # 0.6 (0-1.0) k/uL Eosinophils # 0.0 (0-0.7) k/uL Basophils # 0.1 (0-0.2) k/uL Sodium 139 (137-145) mmol/L Potassium 4.0 (3.5-5.1) mmol/L Chloride 104 (98-107) mmol/L Carbon Dioxide 24 (22-30) mmol/L Anion Gap 11 mmol/L BUN 13 (7-17) mg/dL Creatinine 0.92 (0.52-1.04) mg/dL Est GFR (CKD-EPI)AfAm 83 (>60 ml/min/1.73 sqM) Est GFR (CKD-EPI)NonAf 72 (>60 ml/min/1.73 sqM) Glucose 96 (74-99) mg/dL Plasma Lactic Acid [place]angel[place] (0.7-2.0) mmol/L Calcium 11.3 H (8.4-10.2) mg/dL Total Bilirubin 0.2 (0.2-1.3) mg/dL AST 41 H (14-36) U/L ALT 30 (4-34) U/L Alkaline Phosphatase 167 H (38-126) U/L Total Protein 6.8 (6.3-8.2) g/dL Albumin 4.2 (3.5-5.0) g/dL Lipase 63 (23-300) U/L Urine Color Yellow Urine Appearance Cloudy H (Clear) Urine pH 5.5 (5.0-8.0) Ur Specific [place] 1.036 H (1.001-1.035) Urine Protein 1+ H (Negative) Urine Glucose (UA) Negative (Negative) Urine Ketones 3+ H (Negative) Urine Blood Negative (Negative) Urine Nitrite Negative (Negative) Urine Bilirubin 1+ H (Negative) Urine Urobilinogen 3.0 (<2.0) mg/dL Ur Leukocyte Esterase Large H (Negative) Urine RBC 2 (0-5) /hpf Urine WBC 91 H (0-5) /hpf Ur Squamous Epith Cells 2 (0-4) /hpf Calcium Oxalate Crystal Moderate H (None) /hpf Urine Bacteria Rare H (None) /hpf Hyaline Casts 24 H (0-2) /lpf Urine Mucus Few H (None) /hpf 03/22/21 Range/Units 22:37 WBC (3.8-10.6) k/uL RBC (3.80-5.40) m/uL Hgb (11.4-16.0) gm/dL Hct (34.0-46.0) % MCV (80.0-100.0) fL MCH (25.0-35.0) pg MCHC (31.0-37.0) g/dL RDW (11.5-15.5) % Plt Count (150-450) k/uL MPV Neutrophils % % Lymphocytes % % Monocytes % % Eosinophils % % Basophils % % Neutrophils # (1.3-7.7) k/uL Lymphocytes # (1.0-4.8) k/uL Monocytes # (0-1.0) k/uL Eosinophils # (0-0.7) k/uL Basophils # (0-0.2) k/uL Sodium (137-145) mmol/L Potassium (3.5-5.1) mmol/L Chloride (98-107) mmol/L Carbon Dioxide (22-30) mmol/L Anion Gap mmol/L BUN (7-17) mg/dL Creatinine (0.52-1.04) mg/dL Est GFR (CKD-EPI)AfAm (>60 ml/min/1.73 sqM) Est GFR (CKD-EPI)NonAf (>60 ml/min/1.73 sqM) Glucose (74-99) mg/dL Plasma Lactic Acid [place] 1.7 (0.7-2.0) mmol/L Calcium (8.4-10.2) mg/dL Total Bilirubin (0.2-1.3) mg/dL AST (14-36) U/L ALT (4-34) U/L Alkaline Phosphatase (38-126) U/L Total Protein (6.3-8.2) g/dL Albumin (3.5-5.0) g/dL Lipase (23-300) U/L Urine Color Urine Appearance (Clear) Urine pH (5.0-8.0) Ur Specific [place] (1.001-1.035) Urine Protein (Negative) Urine Glucose (UA) (Negative) Urine Ketones (Negative) Urine Blood (Negative) Urine Nitrite (Negative) Urine Bilirubin (Negative) Urine Urobilinogen (<2.0) mg/dL Ur Leukocyte Esterase (Negative) Urine RBC (0-5) /hpf Urine WBC (0-5) /hpf Ur Squamous Epith Cells (0-4) /hpf Calcium Oxalate Crystal (None) /hpf Urine Bacteria (None) /hpf Hyaline Casts (0-2) /lpf Urine Mucus (None) /hpf - Radiology Data Radiology results: report reviewed, image reviewed 3 views of the left foot are obtained. Report is reviewed in its entirety. Impression by Dr. Jerome shows calcaneal spurring. Fifth metatarsal base fracture. Disposition Clinical Impression: UTI (urinary tract infection), History of ESBL E. coli infection, Nondisplaced fracture of fifth left metatarsal bone Disposition: ADMITTED IP TO THIS [facility] Condition: Serious Decision to Admit Reason: Admit from EC Decision Date: 03/23/21 Decision Time: 00:53
[2021-03-22 23:00] LABS: Basophils # (A) 0.1 k/uL (0-0.2); Basophils % (A) 1 %; Eosinophils % (A) 0 %; HCT 39.3 % (34.0-46.0); HGB 12.9 gm/dL (11.4-16.0); Lymphocytes # (A) 1.5 k/uL (1.0-4.8); Lymphocytes % (A) 18 %; MCH 31.5 pg (25.0-35.0); MCHC 32.8 g/dL (31.0-37.0); Monocytes # (A) 0.6 k/uL (0-1.0); Monocytes % (A) 7 %; Neutrophils # (A) 5.9 k/uL (1.3-7.7); Neutrophils % (A) 71 %; Platelet Count 529 k/uL (150-450); RBC 4.09 m/uL (3.80-5.40); RDW 14.2 % (11.5-15.5); WBC 8.3 k/uL (3.8-10.6)
[2021-03-22 23:15] LABS: Albumin 4.2 g/dL (3.5-5.0); Calcium 11.3 mg/dL (8.4-10.2); Total Bilirubin 0.2 mg/dL (0.2-1.3); Total Protein 6.8 g/dL (6.3-8.2)
[2021-03-22] MEDS ORDERED: LORazepam 2 MG/ML INJ IV STA (23:41)
[2021-03-22 23:53] LABS: Appearance,Urine Cloudy (Clear); Bacteria,Urine Rare /hpf; Bilirubin,Urine 1+ (Negative); Blood,Urine Negative (Negative); Calcium Oxalate Crystals,Urine Moderate /hpf; Color,Urine Yellow; Glucose,Urine (UA) Negative (Negative); Hyaline Casts,Urine 24 /lpf (0-2); Ketones,Urine 3+ (Negative); Leukocyte Esterase,Urine Large (Negative); Mucus,Urine Few /hpf; Nitrite,Urine Negative (Negative); PH, Urine 5.5 (5.0-8.0); Protein,Urine 1+ (Negative); RBC,Urine 2 /hpf (0-5); Specific Gravity,Urine 1.036 (1.001-1.035); Squamous Epithelial Cell,Urine 2 /hpf (0-4); WBC,Urine 91 /hpf (0-5)
--- NOTE | 2021-03-23 00:30 | XR ---
EXAMINATION TYPE: XR foot complete LT DATE OF EXAM: 03/22/2021 COMPARISON: NONE HISTORY: Foot pain TECHNIQUE: 3 views FINDINGS: There is an acute nondisplaced transverse fracture across the base of the fifth metatarsal. The toes appear intact. Hindfoot is intact. There is an Achilles calcaneal spur. IMPRESSION: Calcaneal spurring. Fifth metatarsal base fracture.
[2021-03-23] MEDS ORDERED: NALOXONE 0.4 MG/ML 1 ML VIAL IV PRN (00:51)
[2021-03-23] MEDS ORDERED: ZOLPIDEM 10 MG TAB PO STA (00:52)
[2021-03-23] MEDS ORDERED: PIPERACILLIN-TAZOBACTAM 3.375 GM in SODIUM CHLORIDE 0.9% 100 ML IVPB STA (00:53)
[2021-03-23] MEDS: SODIUM CHLORIDE 0.9% 1,000 ML IV SCH ×2 (01:08→14:08)
[2021-03-23] MEDS ORDERED: ZOLPIDEM 5 MG TAB PO STA (01:56)
[2021-03-23] MEDS ORDERED: CYCLOBENZAPRINE 10 MG TAB PO PRN (09:37)
[2021-03-23] MEDS: PIPERACILLIN-TAZOBACTAM 3.375 GM in SODIUM CHLORIDE 0.9% 100 ML IVPB SCH ×2 (10:22→17:18)
[2021-03-23] MEDS: VERAPAMIL SR 120 MG TABLET.ER PO SCH (10:23)
[2021-03-23] MEDS: LOSARTAN 50 MG TAB PO SCH (10:23)
[2021-03-23] MEDS: CHOLECALCIFEROL 25 MCG (1000 IU) TABLET PO SCH (10:23)
--- NOTE | 2021-03-23 10:32 | US ---
EXAMINATION TYPE: US kidneys/renal and bladder DATE OF EXAM: 03/23/2021 COMPARISON: CT, US CLINICAL HISTORY: FREQ UTIS. Frequent UTIs. EXAM MEASUREMENTS: Right Kidney: 9.8 x 4.8 x 4.7 cm Left Kidney: 10.4 x 4.2 x 3.9 cm Right Kidney: Prominent pyramids. Hyperechoic focus seen mid pole: 0.5 x 0.7 x 0.4 cm. Left Kidney: Prominent pyramids. Hyperechoic focus seen mid pole: 0.3 x 0.3 x 0.3 cm. Bladder: Appears anechoic. Not fully distended. Bilateral Jets seen: Yes IMPRESSION: Nonobstructing bilateral renal calculi.
[2021-03-23 11:58] VITALS: BMI 28.3
[2021-03-23] MEDS: METOCLOPRAMIDE 10 MG TAB PO SCH ×2 (12:33→17:17)
[2021-03-23] MEDS: ACETAMINOPHEN TAB 325 MG TAB PO PRN (12:36)
--- NOTE | 2021-03-23 14:44 | P.HPIM ---
History of Present Illness H&P Date: 03/23/21 HISTORY OF PRESENT ILLNESS This is a 55-year-old female patient of Dr. Pak with past medical history of fibromyalgia, Sjogren syndrome, degenerative disc disease, MS, migraine headaches. Patient states that she is having diarrhea after every time she eats and has been using Lomotil and Imodium [id number]. She is complaining of cramps in the lower abdomen. She states she has had some fever and chills. She states she also has a left foot fracture as she tripped one month ago but has not sought treatment for this. She does give history of having antibiotics starting the beginning of February with Macrobid and followed by another antibiotic that she does not recall the name. At that time she was treated for an E. coli urinary tract infection.on February 13, 2020, patient underwent EGD and colonoscopy with Dr. Quintana which revealed mild gastritis, gastric polyps, duodenal biopsies and GE junction biopsies were obtained. Gastric biopsy revealed mild chronic gastritis, GE junction showed mild chronic esophagitis and negative for intestinal metaplasia. Eosinophils not identified. Patient presented to [facility] emergency center for evaluation and found to be afebrile, heart rate 110, blood pressure 131/81, pulse ox 99% on room air. WBC, hemoglobin normal, platelet count 529. Electrolytes and renal function were normal. AST 41, ALT 30 and alkaline phosphatase 167. Urinalysis was cloudy, leukoesterase large, calcium oxalate crystals moderate, urine bacteria rare, nitrate negative. Lactic acid 1.7. Left foot x-ray revealed calcaneal spurring. Fifth metatarsal base fracture. Renal ultrasound revealed nonobstructing bilateral renal calculi. Patient has been admitted to the pediatric/medical unit. REVIEW OF SYSTEMS Constitutional: Reports fever, reports chills, no night sweats. No weight pancho nge. No weakness, fatigue or lethargy. No daytime sleepiness. EENT: No headache. No blurred vision or double vision, no loss of vision. No loss of Hearing, no ringing in the ears, no dizziness. No nasal drainage or congestion. No epistaxis. No sore throat. Lungs: No shortness of breath, cough, no sputum production. No wheezing. Cardiovascular: No chest pain, no lower extremity edema. No palpitations. No paroxysmal nocturnal dyspnea. No orthopnea. No lightheadedness or dizziness. No syncopal episodes. Abdominal: Reports lower abdominal pain. No nausea, vomiting. Reports diarrhea. No constipation. No bloody or tarry stools.. No loss of appetite. Genitourinary: No dysuria, increased frequency, urgency. No urinary retention. Musculoskeletal: No myalgias. No muscle weakness, reported gait dysfunction, no frequent falls. No back pain. No neck pain. Reported left foot pain Integumentary: No wounds, no lesions. No rash or pruritus. No unusual bruising. No change in hair or nails. Neurologic: No aphasia. No facial droop. No change in mentation. No head injury. No headache. No paralysis. No paresthesia. Psychiatric: No depression. No anxiety. No mood swings. Endocrine: No abnormal blood sugars. No weight change. No excessive sweating or thirst. No cold intolerance. SOCIAL HISTORY Patient is a lifelong nonsmoker, no marijuana or illicit drug use, no alcohol use. Patient lives alone. She does not utilize CPAP, nebulizer, O2. Patient utilizes cane as needed. FAMILY HISTORY Mother is alive with history of COPD, bronchiectasis and hypertension. Father from tongue cancer. Patient does not have any sisters. She has 2 brothers and one daughter with no major medical problems. PHYSICAL EXAMINATION Gen: This is a 55-year-old female. She is resting in bed and appears to be comfortable and in no acute distress. HEENT: Head is atraumatic, normocephalic. Pupils equal, round. Sclerae is anicteric. NECK: Supple. No JVD. No lymphadenopathy. No thyromegaly. LUNGS: Clear to auscultation. No wheezes or rhonchi. No intercostal retractions. HEART: Regular rate and rhythm. No murmur. ABDOMEN: Soft. Bowel sounds are present. No masses. Lower abdominaltenderness. EXTREMITIES: No pedal edema. No calf tenderness. NEUROLOGICAL: Patient is awake, alert and oriented x3. Cranial nerves 2 through 12 are grossly intact. ASSESSMENT AND PLAN 1. Diarrhea. Stool specimen to be sent for C. difficile toxin, stool culture, continue regular diet, Lomotil as needed, Reglan as needed. 2. Recent treatment for urinary tract infection with 2 different antibiotics in February, now presenting with diarrhea, rule out C. difficile toxin. 3. Acute recurrent urinary tract infection. Patient will be continued on Zosyn 3.375 g IV piggyback every 8 hours. Await urine culture. 4. Hypertension. Continue verapamil 120 mg daily, losartan 100 mg daily 5. Multiple sclerosis, stable without exacerbation. Continue Flexeril 10 mg 3 times daily as needed and 10 mg at bedtime. 6. Migraine headaches, stable. 7. Recurrent depression. 8. Restless leg syndrome. Continue Requip 10 mg at bedtime. 9. Chronic anemia. 10. Sjogren's, stable. Continue pilocarpine 5 mg 3 times daily. 11. Generalized anxiety disorder, insomnia. Continue Ambien 10 mg at bedtime. 12. DVT prophylaxis. Heparin subcu. 13. GERD and GI prophylaxis. Protonix. Patient placed on the observation unit. DISCHARGE PLAN Home on Monday Impression and plan of care have been directed as dictated by the signing physician. Cici Chatman nurse practitioner acting as scribe for signing physician. Past Medical History Past Medical History: Fibromyalgia, Musculoskeletal Disorder Additional Past Medical History / Comment(s): Migraines, Shrgren syndrome, DDD, MS History of Any Multi-Drug Resistant Organisms: ESBL Date of last positivie culture/infection: 10/05/20 MDRO Source:: ESBL URINE Past Surgical History: Appendectomy, Hysterectomy, Orthopedic Surgery Additional Past Surgical History / Comment(s): right ankle Past Anesthesia/Blood Transfusion Reactions: No Reported Reaction Past Psychological History: No Psychological Hx Reported Smoking Status: Never smoker Past Alcohol Use History: None Reported Past Drug Use History: None Reported - Past Family History Father Family Medical History: AICD/Pacemaker, Congestive Heart Failure (CHF), COPD, Diabetes Mellitus, Myocardial Infarction ([place]) Additional Family Medical History / Comment(s): Father at age 83 in his sleep. He has history of AICD. Mother Family Medical History: Hypertension Additional Family Medical History / Comment(s): Mother is alive at age 77 with history of hypertension and bronchiectasis. Patient has 2 brothers with no major medical problems. Patient does not have any sisters. Patient is one daughter with no major medical problems. Medications and Allergies Home Medications Medication Instructions Recorded Confirmed Type Cyclobenzaprine [Flexeril] 10 mg PO HS 09/27/17 03/23/21 History Pilocarpine HCl [Salagen] 5 mg PO TID 09/27/17 03/23/21 History Vitamin B Complex 1 tab PO DAILY 09/27/17 03/23/21 History rOPINIRole HCL 10 mg PO HS 09/27/17 03/23/21 History Dextroamphetamine Sulfate 15 mg PO BID 12/20/18 03/23/21 History [Dexedrine] Ascorbic Acid [Vitamin C] 500 mg PO BID 11/25/19 03/23/21 History Diclofenac Epolamine [Flector 1.3% 1 patch TRANSDERM Q12H PRN 11/25/19 03/23/21 History Patch] Cetirizine HCl 10 mg PO DAILY 03/23/21 03/23/21 History Cyclobenzaprine [Flexeril] 10 mg PO TID PRN 03/23/21 03/23/21 History Diclofenac Sodium Gel [Voltaren 2 gm TOPICAL BID PRN 03/23/21 03/23/21 History Gel] Diphenoxylate HCl/Atropine 1 tab PO Q8H PRN 03/23/21 03/23/21 History [Lomotil 2.5-0.025 mg Tablet] Losartan Potassium 100 mg PO DAILY 03/23/21 03/23/21 History Metoclopramide HCl [Reglan] 10 mg PO AC-TID 03/23/21 03/23/21 History Nystatin 100,000 Unit/gm Powd 1 applic TOPICAL BID PRN 03/23/21 03/23/21 History [Mycostatin Powder] Pantoprazole Sodium [Protonix] 40 mg PO BID 03/23/21 03/23/21 History Ubrogepant [Ubrelvy] 50 - 100 mg PO DAILY PRN 03/23/21 03/23/21 History Verapamil HCl [Verapamil ER] 120 mg PO DAILY 03/23/21 03/23/21 History Zolpidem [Ambien] 10 mg PO HS 03/23/21 03/23/21 History ondansetron HCL [Zofran] 8 mg PO TID 03/23/21 03/23/21 History predniSONE 10 - 30 mg PO TID PRN 03/23/21 03/23/21 History Allergies Allergy/AdvReac Type Severity Reaction Status Date / Time aspirin AdvReac Abdominal Verified 03/23/21 07:26 Pain Physical Exam Vitals: Vital Signs Temp Pulse Pulse Resp BP BP BP 03/23/21 07:31 105 H 18 03/23/21 07:27 98.1 F 105 H 18 122/81 03/23/21 00:41 98.3 F 89 16 146/81 03/23/21 00:05 100 18 132/62 03/22/21 22:32 103 H 16 129/54 03/22/21 20:48 98.3 F 110 H 20 131/81 Pulse Ox 03/23/21 07:31 03/23/21 07:27 94 L 03/23/21 00:41 96 03/23/21 00:05 96 03/22/21 22:32 97 03/22/21 20:48 99 Intake and Output 03/22/21 03/23/21 03/23/21 22:59 06:59 14:59 Other: Weight 77.111 kg 74.7 kg Results CBC & Chem 7: 03/22/21 22:37 03/22/21 22:37 Labs: Abnormal Lab Results - Last 24 Hours (Table) 03/22/21 03/22/21 03/22/21 Range/Units 22:37 22:37 22:37 Plt Count 529 H (150-450) k/uL Calcium 11.3 H (8.4-10.2) mg/dL AST 41 H (14-36) U/L Alkaline Phosphatase 167 H (38-126) U/L Urine Appearance Cloudy H (Clear) Ur Specific [place] 1.036 H (1.001-1.035) Urine Protein 1+ H (Negative) Urine Ketones 3+ H (Negative) Urine Bilirubin 1+ H (Negative) Ur Leukocyte Esterase Large H (Negative) Urine WBC 91 H (0-5) /hpf Calcium Oxalate Crystal Moderate H (None) /hpf Urine Bacteria Rare H (None) /hpf Hyaline Casts 24 H (0-2) /lpf Urine Mucus Few H (None) /hpf Thrombosis Risk Factor Assmnt - Choose All That Apply Each Factor Represents 1 point: Age 41-60 years, Obesity (BMI >25) Thrombosis Risk Factor Assessment Total Risk Factor Score: 2 Thrombosis Risk Factor Assessment Level: Low Risk
[2021-03-23] MEDS: PILOCARPINE 5 MG TAB PO SCH ×2 (15:50→21:31)
[2021-03-23] MEDS: HEPARIN SODIUM,PORCINE/PF 5,000 UNIT/0.5 ML SYRINGE SQ SCH (21:30)
[2021-03-23] MEDS: CYCLOBENZAPRINE 10 MG TAB PO SCH (21:30)
[2021-03-23] MEDS: ZOLPIDEM 10 MG TAB PO SCH (21:31)
[2021-03-23] MEDS: PANTOPRAZOLE 40 MG TABLET PO SCH (21:31)
[2021-03-23] MEDS: rOPINIRole HCL 4 MG TABLET PO SCH (21:31)
--- NOTE | 2021-03-23 23:24 | P.CONS ---
History of Present Illness - Reason for Consult Consult date: 03/23/21 History of ESBL Requesting physician: Cici Chatman - Chief Complaint diarrhea off and on x 1 month - History of Present Illness History of present illness : Patient is 55-year-old female presenting to the ER for evaluation of diarrhea that has been going on for about a month and this patient has used Lomotil and Imodium [id number] and mention did have some improvement however the more when she eats it just goes through hard patient complaining of multiple loose stools per day however no blood or mucus in the stool she did complain of crampy abdominal pain intensity 6-7 out of 10 patient on presentation the hospital was afebrile slightly tachycardic patient did have a normal white count did have a positive UA with large leukocyte esterase ninety-one WBC stool for C. difficile is negative urine cultures are currently pending patient did have a urine culture positive for ESBL in January as well as in September and August of this year patient has been started on Zosyn infectious disease was consulted for further management of antibiotic therapy patient did have a abdominal bladder ultrasound nonobstructing bilateral renal calculi Review of system: CONSTITUTIONAL: Positive for weakness however denies high-grade fever. EYES: No complaint. ENT: No complaint. RESPIRATORY: No complaint. CARDIOVASCULAR: No complaint. GENITOURINARY: As per history of present illness. GASTROINTESTINAL: As per history of present illness. MUSCULOSKELETAL: No complaint. INTEGUMENTARY: No complaint. PSYCHOLOGIC: No complaint. ENDOCRINE: No complaint. NEUROLOGIC: No complaint. Past medical history : Reviewed, documented below Past surgical history : Reviewed, documented below Social history: Reviewed, documented below Medications: Reviewed, as documented below EXAMINATION: Vital sigans= Reviewed and documented below GENERAL DESCRIPTION: Middle-aged female lying in bed, no distress. No tachypnea or accessory muscle of respiration use. HEENT: Shows Pallor , no scleral icterus. Oral mucous membrane is dry. NECK: Trachea central, no thyromegaly. LUNGS: Unlabored breathing. Clear to auscultation anteriorly. No wheeze or crackle. HEART: S1, S2, regular rate and rhythm. ABDOMEN: Soft, no tenderness , guarding or rigidity EXTREMITIES: No edema of feet. SKIN: No rash, no masses palpable. NEUROLOGICAL: The patient is awake, alert, oriented x3, mood and affect normal. LABS AND RADIOLOGY: Reviewed results see below Assessment : Patient is a [age] female presented to hospital patient evaluated with diarrhea some nausea and also have some urinary symptoms in this patient who did have a bilateral nonobstructing renal calculi and did have a positive urine culture with ESBL E. coli from August and December of this year now with significantly positive UA likely representing another episode of symptomatic ureteric infection and will need to cover for ESBL to the likely pathogen 2-intractable diarrhea stool for C. difficile has been negative Plan: 1-discontinue Zosyn 2-start the patient on Invanz 1 g daily 3-obtain stool culture 4-Questran for symptomatic relief of diarrhea We will follow on clinical condition and cultures to further adjust medication if needed Past Medical History Past Medical History: Fibromyalgia, Musculoskeletal Disorder Additional Past Medical History / Comment(s): Migraines, Shrgren syndrome, DDD, MS History of Any Multi-Drug Resistant Organisms: ESBL Year Discovered:: 10/05/20 MDRO Source:: ESBL URINE Past Surgical History: Appendectomy, Hysterectomy, Orthopedic Surgery Additional Past Surgical History / Comment(s): right ankle Past Anesthesia/Blood Transfusion Reactions: No Reported Reaction Past Psychological History: No Psychological Hx Reported Smoking Status: Never smoker Past Alcohol Use History: None Reported Past Drug Use History: None Reported - Past Family History Father Family Medical History: AICD/Pacemaker, Congestive Heart Failure (CHF), COPD, Diabetes Mellitus, Myocardial Infarction ([place]) Additional Family Medical History / Comment(s): Father at age 83 in his sleep. He has history of AICD. Mother Family Medical History: Hypertension Additional Family Medical History / Comment(s): Mother is alive at age 77 with history of hypertension and bronchiectasis. Patient has 2 brothers with no major medical problems. Patient does not have any sisters. Patient is one daughter with no major medical problems. Medications and Allergies Home Medications Medication Instructions Recorded Confirmed Type Cyclobenzaprine [Flexeril] 10 mg PO HS 09/27/17 03/23/21 History Pilocarpine HCl [Salagen] 5 mg PO TID 09/27/17 03/23/21 History Vitamin B Complex 1 tab PO DAILY 09/27/17 03/23/21 History rOPINIRole HCL 10 mg PO HS 09/27/17 03/23/21 History Dextroamphetamine Sulfate 15 mg PO BID 12/20/18 03/23/21 History [Dexedrine] Ascorbic Acid [Vitamin C] 500 mg PO BID 11/25/19 03/23/21 History Diclofenac Epolamine [Flector 1.3% 1 patch TRANSDERM Q12H PRN 11/25/19 03/23/21 History Patch] Cetirizine HCl 10 mg PO DAILY 03/23/21 03/23/21 History Cyclobenzaprine [Flexeril] 10 mg PO TID PRN 03/23/21 03/23/21 History Diclofenac Sodium Gel [Voltaren 2 gm TOPICAL BID PRN 03/23/21 03/23/21 History Gel] Diphenoxylate HCl/Atropine 1 tab PO Q8H PRN 03/23/21 03/23/21 History [Lomotil 2.5-0.025 mg Tablet] Losartan Potassium 100 mg PO DAILY 03/23/21 03/23/21 History Metoclopramide HCl [Reglan] 10 mg PO AC-TID 03/23/21 03/23/21 History Nystatin 100,000 Unit/gm Powd 1 applic TOPICAL BID PRN 03/23/21 03/23/21 History [Mycostatin Powder] Pantoprazole Sodium [Protonix] 40 mg PO BID 03/23/21 03/23/21 History Ubrogepant [Ubrelvy] 50 - 100 mg PO DAILY PRN 03/23/21 03/23/21 History Verapamil HCl [Verapamil ER] 120 mg PO DAILY 03/23/21 03/23/21 History Zolpidem [Ambien] 10 mg PO HS 03/23/21 03/23/21 History ondansetron HCL [Zofran] 8 mg PO TID 03/23/21 03/23/21 History predniSONE 10 - 30 mg PO TID PRN 03/23/21 03/23/21 History Allergies Allergy/AdvReac Type Severity Reaction Status Date / Time aspirin AdvReac Abdominal Verified 03/23/21 07:26 Pain Physical Exam Vitals: Vital Signs Temp Pulse Pulse Resp BP BP BP 03/23/21 07:31 105 H 18 03/23/21 07:27 98.1 F 105 H 18 122/81 03/23/21 00:41 98.3 F 89 16 146/81 03/23/21 00:05 100 18 132/62 03/22/21 22:32 103 H 16 129/54 03/22/21 20:48 98.3 F 110 H 20 131/81 Pulse Ox 03/23/21 07:31 03/23/21 07:27 94 L 03/23/21 00:41 96 03/23/21 00:05 96 03/22/21 22:32 97 03/22/21 20:48 99 Intake and Output 03/22/21 03/23/21 03/23/21 22:59 06:59 14:59 Output Total 250 Balance -250 Output: Urine 250 Other: Weight 77.111 kg 74.7 kg Results CBC & Chem 7: 03/22/21 22:37 03/22/21 22:37 Labs: Abnormal Lab Results - Last 24 Hours (Table) 03/22/21 03/22/21 03/22/21 Range/Units 22:37 22:37 22:37 Plt Count 529 H (150-450) k/uL Calcium 11.3 H (8.4-10.2) mg/dL AST 41 H (14-36) U/L Alkaline Phosphatase 167 H (38-126) U/L Urine Appearance Cloudy H (Clear) Ur Specific [place] 1.036 H (1.001-1.035) Urine Protein 1+ H (Negative) Urine Ketones 3+ H (Negative) Urine Bilirubin 1+ H (Negative) Ur Leukocyte Esterase Large H (Negative) Urine WBC 91 H (0-5) /hpf Calcium Oxalate Crystal Moderate H (None) /hpf Urine Bacteria Rare H (None) /hpf Hyaline Casts 24 H (0-2) /lpf Urine Mucus Few H (None) /hpf
[2021-03-23] MEDS: ERTAPENEM 1 GM in SODIUM CHLORIDE 0.9% 50 ML IVPB SCH (23:52)
[2021-03-24] MEDS: ONDANSETRON 4 MG/2 ML VIAL IVP PRN ×2 (02:06→17:48)
[2021-03-24] MEDS: SODIUM CHLORIDE 0.9% 1,000 ML IV SCH ×2 (07:33→16:56)
[2021-03-24] MEDS: DIPHENOX-ATROP 2.5-0.025 MG 1 EACH TAB PO PRN ×2 (07:45→16:59)
[2021-03-24] MEDS: METOCLOPRAMIDE 10 MG TAB PO SCH ×3 (07:46→16:56)
[2021-03-24] MEDS: LOSARTAN 50 MG TAB PO SCH (09:27)
[2021-03-24] MEDS: CHOLECALCIFEROL 25 MCG (1000 IU) TABLET PO SCH (09:29)
[2021-03-24] MEDS: HEPARIN SODIUM,PORCINE/PF 5,000 UNIT/0.5 ML SYRINGE SQ SCH ×2 (09:30→20:57)
[2021-03-24] MEDS: LORATADINE 10 MG TAB PO SCH (09:30)
[2021-03-24] MEDS: PANTOPRAZOLE 40 MG TABLET PO SCH ×2 (09:31→20:57)
[2021-03-24] MEDS: VERAPAMIL SR 120 MG TABLET.ER PO SCH (09:33)
[2021-03-24] MEDS: PILOCARPINE 5 MG TAB PO SCH ×3 (09:33→20:57)
[2021-03-24] MEDS: CHOLESTYRAMINE (WITH SUGAR) 4 GM PACKET PO SCH ×2 (09:34→16:56)
[2021-03-24] MEDS: NON FORMULARY DRUG (Vitamin B Complex [Vitamin B Complex] 1 EACH Capsule) PO SCH (09:40)
[2021-03-24] MEDS: ACETAMINOPHEN TAB 325 MG TAB PO PRN ×2 (10:07→17:48)
--- NOTE | 2021-03-24 14:26 | P.PN ---
Subjective Progress Note Date: 03/24/21 HISTORY OF PRESENT ILLNESS This is a 55-year-old female patient of Dr. Pak with past medical history of fibromyalgia, Sjogren syndrome, degenerative disc disease, MS, migraine headaches. Patient states that she is having diarrhea after every time she eats and has been using Lomotil and Imodium [id number]. She is complaining of cramps in the lower abdomen. She states she has had some fever and chills. She states she also has a left foot fracture as she tripped one month ago but has not sought treatment for this. She does give history of having antibiotics st arting the beginning of February with Macrobid and followed by another antibiotic that she does not recall the name. At that time she was treated for an E. coli urinary tract infection.on February 13, 2020, patient underwent EGD and colonoscopy with Dr. Quintana which revealed mild gastritis, gastric polyps, duodenal biopsies and GE junction biopsies were obtained. Gastric biopsy revealed mild chronic gastritis, GE junction showed mild chronic esophagitis and negative for intestinal metaplasia. Eosinophils not identified. Patient presented to [facility] emergency center for evaluation and found to be afebrile, heart rate 110, blood pressure 131/81, pulse ox 99% on room air. WBC, hemoglobin normal, platelet count 529. Electrolytes and renal function were normal. AST 41, ALT 30 and alkaline phosphatase 167. Urinalysis was cloudy, leukoesterase large, calcium oxalate crystals moderate, urine bacteria rare, nitrate negative. Lactic acid 1.7. Left foot x-ray revealed calcaneal spurring. Fifth metatarsal base fracture. Renal ultrasound revealed nonobstructing bilateral renal calculi. Patient has been admitted to the pediatric/medical unit. 03/24: Patient's calcium was high at 11.3 and immunofixation, serum protein electrophoresis and PHT intact ordered. Patient states her last diarrhea was yesterday but she is not eating very much. Started, Zosyn discontinued. Questran was added for diarrhea. She has been afebrile, heart rate 97, blood pressure 148/78, pulse ox 96% on room air. Urine culture showing gram-negative bacilli from 03/22. Stool culture is in process. C. difficile toxin was negative. REVIEW OF SYSTEMS Constitutional: Reports fever, reports chills, no night sweats. No weight change. No weakness, fatigue or lethargy. No daytime sleepiness. EENT: No headache. No blurred vision or double vision, no loss of vision. No loss of Hearing, no ringing in the ears, no dizziness. No nasal drainage or congestion. No epistaxis. No sore throat. Lungs: No shortness of breath, cough, no sputum production. No wheezing. Cardiovascular: No chest pain, no lower extremity edema. No palpitations. No paroxysmal nocturnal dyspnea. No orthopnea. No lightheadedness or dizziness. No syncopal episodes. Abdominal: Reports lower abdominal pain. No nausea, vomiting. Reports diarrhea, improving. No constipation. No bloody or tarry stools.. No loss of appetite. Genitourinary: No dysuria, increased frequency, urgency. No urinary retention. Musculoskeletal: No myalgias. No muscle weakness, reported gait dysfunction, no frequent falls. No back pain. No neck pain. Reported left foot pain Integumentary: No wounds, no lesions. No rash or pruritus. No unusual bruising. No change in hair or nails. Neurologic: No aphasia. No facial droop. No change in mentation. No head injury. No headache. No paralysis. No paresthesia. Psychiatric: No depression. No anxiety. No mood swings. Endocrine: No abnormal blood sugars. No weight change. No excessive sweating or thirst. No cold intolerance. PHYSICAL EXAMINATION Gen: This is a 55-year-old female. She is resting in bed and appears to be comfortable and in no acute distress. HEENT: Head is atraumatic, normocephalic. Pupils equal, round. Sclerae is anicteric. NECK: Supple. No JVD. No lymphadenopathy. No thyromegaly. LUNGS: Clear to auscultation. No wheezes or rhonchi. No intercostal retractions. HEART: Regular rate and rhythm. No murmur. ABDOMEN: Soft. Bowel sounds are present. No masses. Lower abdominal tenderne ss. EXTREMITIES: No pedal edema. No calf tenderness. NEUROLOGICAL: Patient is awake, alert and oriented x3. Cranial nerves 2 through 12 are grossly intact. ASSESSMENT AND PLAN 1. Diarrhea. Stool specimen negative for C. difficile toxin, stool culture in progress, continue regular diet, Questran, Reglan as needed. Consult with Dr. Andrea appreciated 2. Recent treatment for urinary tract infection with 2 different antibiotics in February, now presenting with diarrhea, rule out C. difficile toxin. 3. Acute recurrent urinary tract infection. Zosyn discontinued and patient started on Invanz 1 g IV piggyback daily by Dr. Mendez. Await urine culture. 4. Hypertension. Continue verapamil 120 mg daily, losartan 100 mg daily 5. Multiple sclerosis, stable without exacerbation. Continue Flexeril 10 mg 3 times daily as needed and 10 mg at bedtime. 6. Migraine headaches, stable. 7. Recurrent depression. 8. Restless leg syndrome. Continue Requip 10 mg at bedtime. 9. Chronic anemia. 10. Sjogren's, stable. Continue pilocarpine 5 mg 3 times daily. 11. Generalized anxiety disorder, insomnia. Continue Ambien 10 mg at bedtime. 12. DVT prophylaxis. Heparin subcu. 13. GERD and GI prophylaxis. Protonix. DISCHARGE PLAN Home on Impression and plan of care have been directed as dictated by the signing collin anthony. Cici Chatman nurse practitioner acting as scribe for signing physician. Objective - Vital Signs Vital signs: Vital Signs Temp 98.7 F 03/24/21 07:30 Pulse 97 03/24/21 07:30 Resp 18 03/24/21 07:30 BP 148/78 03/24/21 07:30 Pulse Ox 96 03/24/21 02:00 Intake & Output 03/23/21 03/24/21 03/24/21 18:59 06:59 18:59 Intake Total 300 Output Total 500 Balance -500 300 Weight 74.7 kg Intake: Intake, IV Titration 300 Amount Sodium Chloride 0.9% 1, 300 000 ml @ 75 mls/hr IV . [id number] [facility] Rx#:[id number] Output: Urine 500 Other: Voiding Method Toilet # Voids 1 # Bowel Movements 1 - Labs CBC & Chem 7: 03/22/21 22:37 03/22/21 22:37 Labs: Microbiology - Last 24 Hours (Table) 03/22/21 22:37 Stool Culture - Preliminary Stool 03/22/21 22:37 Urine Culture - Preliminary Urine,Voided
--- NOTE | 2021-03-24 18:25 | PN ---
PROGRESS NOTE DATE OF SERVICE: 03/24/2021 REASON FOR FOLLOWUP: 1. Urinary tract infection. 2. Gastroenteritis. INTERVAL HISTORY: The patient is afebrile. She is breathing comfortably. The patient's diarrhea has decreased in frequency. Denies having any chest pain. No cough and no abdominal pain. PHYSICAL EXAMINATION: Blood pressure 155/90 with a pulse of 150, temp 97.2. She is 98% on room air. General description is a middle-aged female lying in bed in no distress. Respiratory system: Unlabored breathing, clear to auscultation anteriorly. Heart S1, S2. Regular rate and rhythm. Abdomen: Soft, no tenderness. LABS: Urine showing a Gram-negative bacilli. DIAGNOSTIC IMPRESSION AND PLAN: Patient admitted to the hospital with acute nausea, vomiting, diarrhea in this patient stool for C difficile is negative. Did have a positive UA and this patient has grown ESBL in the urine since August and did have stone, that may be contributing to some of this persistent or recurrent infection. Patient clinically responding to Invanz to continue while waiting for the culture to finalize and monitor clinical course closely. MMODL / IJN: [id number] / KARIE
[2021-03-24] MEDS: CYCLOBENZAPRINE 10 MG TAB PO SCH (20:56)
[2021-03-24] MEDS: rOPINIRole HCL 4 MG TABLET PO SCH (20:56)
[2021-03-24] MEDS: ZOLPIDEM 10 MG TAB PO SCH (20:57)
[2021-03-24 21:42] LABS: Protein, Total 5.7 g/dL (6.2-8.2)
[2021-03-25] MEDS: ERTAPENEM 1 GM in SODIUM CHLORIDE 0.9% 50 ML IVPB SCH ×2 (00:32→23:57)
[2021-03-25] MEDS: SODIUM CHLORIDE 0.9% 1,000 ML IV SCH ×2 (04:47→21:41)
[2021-03-25] MEDS: LOSARTAN 50 MG TAB PO SCH (09:12)
[2021-03-25] MEDS: CHOLECALCIFEROL 25 MCG (1000 IU) TABLET PO SCH (09:13)
[2021-03-25] MEDS: PANTOPRAZOLE 40 MG TABLET PO SCH ×2 (09:13→19:29)
[2021-03-25] MEDS: LORATADINE 10 MG TAB PO SCH (09:13)
[2021-03-25] MEDS: HEPARIN SODIUM,PORCINE/PF 5,000 UNIT/0.5 ML SYRINGE SQ SCH ×2 (09:14→19:29)
[2021-03-25] MEDS: PILOCARPINE 5 MG TAB PO SCH ×3 (09:14→19:29)
[2021-03-25] MEDS: VERAPAMIL SR 120 MG TABLET.ER PO SCH (09:16)
[2021-03-25] MEDS: METOCLOPRAMIDE 10 MG TAB PO SCH ×3 (09:16→17:05)
[2021-03-25] MEDS: NON FORMULARY DRUG (Vitamin B Complex [Vitamin B Complex] 1 EACH Capsule) PO SCH (09:18)
[2021-03-25] MEDS: CHOLESTYRAMINE (WITH SUGAR) 4 GM PACKET PO SCH ×2 (10:11→17:05)
[2021-03-25] MEDS: ONDANSETRON 4 MG/2 ML VIAL IVP PRN ×2 (10:32→17:34)
--- NOTE | 2021-03-25 11:32 | P.GSCN ---
History of Present Illness Consult date: 03/25/21 History of present illness: 55 yo female in the hospital with vomiting and diarrhea. SHe also has had a persistent uti. For this reason we are asked to see the patient. SHe had a urine that shows inflammation. Apparently has had e coli positive cultures. SHe had a ct scan last year without evidence of stones. SHe had an us this visit that suggested small stones. She has no history of stones Review of Systems All systems: negative - Constitutional Denies fever, Denies weight loss - EENT Eyes: denies blurred vision Ears, nose, mouth and throat: Denies dysphagia - Cardiovascular Denies chest pain, Denies shortness of breath - Respiratory Denies cough, Denies 7 - Gastrointestinal Reports as per HPI - Genitourinary Genitourinary: Denies dysuria, Denies hematuria - Integumentary Denies rash, Denies unusual bruising - Neurological Denies headaches, Denies syncope - Hematologic/Lymphatic Denies easy bleeding, Denies easy bruising Past Medical History Past Medical History: Fibromyalgia, Musculoskeletal Disorder Additional Past Medical History / Comment(s): Migraines, Shrgren syndrome, DDD, MS History of Any Multi-Drug Resistant Organisms: ESBL Year Discovered:: 10/05/20 MDRO Source:: ESBL URINE Past Surgical History: Appendectomy, Hysterectomy, Orthopedic Surgery Additional Past Surgical History / Comment(s): right ankle Past Anesthesia/Blood Transfusion Reactions: No Reported Reaction Past Psychological History: No Psychological Hx Reported Smoking Status: Never smoker Past Alcohol Use History: None Reported Past Drug Use History: None Reported - Past Family History Father Family Medical History: AICD/Pacemaker, Congestive Heart Failure (CHF), COPD, Diabetes Mellitus, Myocardial Infarction ([place]) Additional Family Medical History / Comment(s): Father at age 83 in his sleep. He has history of AICD. Mother Family Medical History: Hypertension Additional Family Medical History / Comment(s): Mother is alive at age 77 with history of hypertension and bronchiectasis. Patient has 2 brothers with no major medical problems. Patient does not have any sisters. Patient is one daughter with no major medical problems. Medications and Allergies Home Medications Medication Instructions Recorded Confirmed Type Cyclobenzaprine [Flexeril] 10 mg PO HS 09/27/17 03/23/21 History Pilocarpine HCl [Salagen] 5 mg PO TID 09/27/17 03/23/21 History Vitamin B Complex 1 tab PO DAILY 09/27/17 03/23/21 History rOPINIRole HCL 10 mg PO HS 09/27/17 03/23/21 History Dextroamphetamine Sulfate 15 mg PO BID 12/20/18 03/23/21 History [Dexedrine] Ascorbic Acid [Vitamin C] 500 mg PO BID 11/25/19 03/23/21 History Diclofenac Epolamine [Flector 1.3% 1 patch TRANSDERM Q12H PRN 11/25/19 03/23/21 History Patch] Cetirizine HCl 10 mg PO DAILY 03/23/21 03/23/21 History Cyclobenzaprine [Flexeril] 10 mg PO TID PRN 03/23/21 03/23/21 History Diclofenac Sodium Gel [Voltaren 2 gm TOPICAL BID PRN 03/23/21 03/23/21 History Gel] Diphenoxylate HCl/Atropine 1 tab PO Q8H PRN 03/23/21 03/23/21 History [Lomotil 2.5-0.025 mg Tablet] Losartan Potassium 100 mg PO DAILY 03/23/21 03/23/21 History Metoclopramide HCl [Reglan] 10 mg PO AC-TID 03/23/21 03/23/21 History Nystatin 100,000 Unit/gm Powd 1 applic TOPICAL BID PRN 03/23/21 03/23/21 History [Mycostatin Powder] Pantoprazole Sodium [Protonix] 40 mg PO BID 03/23/21 03/23/21 History Ubrogepant [Ubrelvy] 50 - 100 mg PO DAILY PRN 03/23/21 03/23/21 History Verapamil HCl [Verapamil ER] 120 mg PO DAILY 03/23/21 03/23/21 History Zolpidem [Ambien] 10 mg PO HS 03/23/21 03/23/21 History ondansetron HCL [Zofran] 8 mg PO TID 03/23/21 03/23/21 History predniSONE 10 - 30 mg PO TID PRN 03/23/21 03/23/21 History Allergies Allergy/AdvReac Type Severity Reaction Status Date / Time aspirin AdvReac Abdominal Verified 03/23/21 07:26 Pain Surgical - Exam Vital Signs Temp Pulse Resp BP Pulse Ox 98.3 F 110 H 20 131/81 99 03/22/21 20:48 03/22/21 20:48 03/22/21 20:48 03/22/21 20:48 03/22/21 20:48 - General well developed, well nourished, no distress - Eyes PERRL - ENT no hearing loss - Neck trachea midline - Respiratory normal expansion, normal respiratory effort - Cardiovascular Rhythm: regular - Abdomen Abdomen: soft, non tender - Integumentary no rash, no growths - Neurologic normal coordination, normal sensation - Musculoskeletal normal posture - Psychiatric oriented to time, oriented to person, oriented to place, speech is normal Results - Labs 03/22/21 22:37 03/22/21 22:37 Abnormal Lab Results - Last 24 Hours (Table) 03/24/21 Range/Units 09:55 Total Protein (PEP) 5.7 L (6.2-8.2) g/dL Microbiology - Last 24 Hours (Table) 03/22/21 22:37 Urine Culture - Final Urine,Voided Escherichia coli 03/24/21 15:35 Stool Culture - Preliminary Stool - Imaging CT scan - abdomen: report reviewed, image reviewed CT scan - pelvis: report reviewed, image reviewed US - abdomen: report reviewed, image reviewed Assessment and Plan Assessment: Impression: Diarrhea. Urine infection. Possible kidney stones, abnormal ultrasound Recommendations: E. coli is not a typical bacteria causing stones. A secondary infections related to stones is always possible. She did not have any kidney stones in March 2020 computed tomography scan. Ultrasounds are not very reliable for kidney stones. I'll obtain a computed tomography scan to verify whether there are any stones.
[2021-03-25] MEDS: ACETAMINOPHEN TAB 325 MG TAB PO PRN ×2 (12:17→23:57)
--- NOTE | 2021-03-25 13:10 | P.PN ---
Subjective Progress Note Date: 03/25/21 HISTORY OF PRESENT ILLNESS This is a 55-year-old female patient of Dr. Pak with past medical history of fibromyalgia, Sjogren syndrome, degenerative disc disease, MS, migraine headaches. Patient states that she is having diarrhea after every time she eats and has been using Lomotil and Imodium [id number]. She is complaining of cramps in the lower abdomen. She states she has had some fever and chills. She states she also has a left foot fracture as she tripped one month ago but has not sought treatment for this. She does give history of having antibiotics st arting the beginning of February with Macrobid and followed by another antibiotic that she does not recall the name. At that time she was treated for an E. coli urinary tract infection.on February 13, 2020, patient underwent EGD and colonoscopy with Dr. Quintana which revealed mild gastritis, gastric polyps, duodenal biopsies and GE junction biopsies were obtained. Gastric biopsy revealed mild chronic gastritis, GE junction showed mild chronic esophagitis and negative for intestinal metaplasia. Eosinophils not identified. Patient presented to [facility] emergency center for evaluation and found to be afebrile, heart rate 110, blood pressure 131/81, pulse ox 99% on room air. WBC, hemoglobin normal, platelet count 529. Electrolytes and renal function were normal. AST 41, ALT 30 and alkaline phosphatase 167. Urinalysis was cloudy, leukoesterase large, calcium oxalate crystals moderate, urine bacteria rare, nitrate negative. Lactic acid 1.7. Left foot x-ray revealed calcaneal spurring. Fifth metatarsal base fracture. Renal ultrasound revealed nonobstructing bilateral renal calculi. Patient has been admitted to the pediatric/medical unit. 03/24: Patient's calcium was high at 11.3 and immunofixation, serum protein electrophoresis and PHT intact ordered. Patient states her last diarrhea was yesterday but she is not eating very much. Started, Zosyn discontinued. Questran was added for diarrhea. She has been afebrile, heart rate 97, blood pressure 148/78, pulse ox 96% on room air. Urine culture showing gram-negative bacilli from 03/22. Stool culture is in process. C. difficile toxin was negative. 03/25: Renal ultrasound revealed nonobstructing bilateral renal calculi. Consult added for urology regarding Stones causing frequent urinary tract infections. Patient has been seen and followed by Dr. Mendez with recommendations to continue Invanz. Urine culture has been finalized with E. coli ESBL. Patient has been afebrile, heart rate 98, blood pressure 132/71, pulse ox 90% on room air. Patient is complaining of diarrhea every time she eats any food but is okay with drinking liquids. She does have history of IBS and lactose free and gluten-free diet added. Patient states that she even had diarrhea after drinking Ensure last evening. She states she had vomiting this morning and is very nauseated and would like Zofran which is available. She did not eat breakfast. Repeat blood work ordered for tomorrow. REVIEW OF SYSTEMS Constitutional: Reports fever, reports chills, no night sweats. No weight change. No weakness, fatigue or lethargy. No daytime sleepiness. EENT: No headache. No blurred vision or double vision, no loss of vision. No loss of Hearing, no ringing in the ears, no dizziness. No nasal drainage or congestion. No epistaxis. No sore throat. Lungs: No shortness of breath, cough, no sputum production. No wheezing. Cardiovascular: No chest pain, no lower extremity edema. No palpitations. No paroxysmal nocturnal dyspnea. No orthopnea. No lightheadedness or dizziness. No syncopal episodes. Abdominal: Reports lower abdominal pain. Reports reports nausea, vomiting. Reports diarrhea, improving. No constipation. No bloody or tarry stools.. No loss of appetite. Genitourinary: No dysuria, increased frequency, urgency. No urinary retention. Musculoskeletal: No myalgias. No muscle weakness, reported gait dysfunction, no frequent falls. No back pain. No neck pain. Reported left foot pain Integumentary: No wounds, no lesions. No rash or pruritus. No unusual bruising. No change in hair or nails. Neurologic: No aphasia. No facial droop. No change in mentation. No head injury. No headache. No paralysis. No paresthesia. Psychiatric: No depression. No anxiety. No mood swings. Endocrine: No abnormal blood sugars. No weight change. No excessive sweating or thirst. No cold intolerance. PHYSICAL EXAMINATION Gen: This is a 55-year-old female. She is resting in bed and appears to be comfortable and in no acute distress. HEENT: Head is atraumatic, normocephalic. Pupils equal, round. Sclerae is anicteric. NECK: Supple. No JVD. No lymphadenopathy. No thyromegaly. LUNGS: Clear to auscultation. No wheezes or rhonchi. No intercostal retractions. HEART: Regular rate and rhythm. No murmur. ABDOMEN: Soft. Bowel sounds are present. No masses. Lower abdominal tenderness. EXTREMITIES: No pedal edema. No calf tenderness. NEUROLOGICAL: Patient is awake, alert and oriented x3. Cranial nerves 2 through 12 are grossly intact. ASSESSMENT AND PLAN 1. Diarrhea. Stool specimen negative for C. difficile toxin, stool culture in progress, continue regular diet, Questran, Reglan as needed. Consult with Dr. Mendez appreciated 2. Recent treatment for urinary tract infection with 2 different antibiotics in February, now presenting with diarrhea, rule out C. difficile toxin. 3. Acute recurrent ESBL E. coli urinary tract infection possibly related to infected renal stones. Consult with urology added.. Continue Invanz 1 g IV piggyback daily by Dr. Mendez. 4. Hypertension. Continue verapamil 120 mg daily, losartan 100 mg daily 5. Multiple sclerosis, stable without exacerbation. Continue Flexeril 10 mg 3 times daily as needed and 10 mg at bedtime. 6. Migraine headaches, stable. 7. Recurrent depression. 8. Restless leg syndrome. Continue Requip 10 mg at bedtime. 9. Chronic anemia. 10. Sjogren's, stable. Continue pilocarpine 5 mg 3 times daily. 11. Generalized anxiety disorder, insomnia. Continue Ambien 10 mg at bedtime. 12. DVT prophylaxis. Heparin subcu. 13. GERD and GI prophylaxis. Protonix. DISCHARGE PLAN Home on Monday Impression and plan of care have been directed as dictated by the signing physician. Cici Chatman nurse practitioner acting as scribe for signing physician. Objective - Vital Signs Vital signs: Vital Signs Temp 98.4 F 03/25/21 08:30 Pulse 97 03/25/21 08:30 Resp 18 03/25/21 08:30 BP 122/73 03/25/21 08:30 Pulse Ox 98 03/25/21 00:54 Intake & Output 03/24/21 03/25/21 03/25/21 18:59 06:59 18:59 Other: # Voids 3 2 # Bowel Movements 2 0 - Labs CBC & Chem 7: 03/22/21 22:37 03/22/21 22:37 Labs: Abnormal Lab Results - Last 24 Hours (Table) 03/24/21 Range/Units 09:55 Total Protein (PEP) 5.7 L (6.2-8.2) g/dL Microbiology - Last 24 Hours (Table) 03/22/21 22:37 Urine Culture - Final Urine,Voided Escherichia coli 03/24/21 15:35 Stool Culture - Preliminary Stool
--- NOTE | 2021-03-25 13:53 | CT ---
EXAMINATION TYPE: CT abdomen pelvis wo con DATE OF EXAM: 03/25/2021 HISTORY: Kidney stones CT DLP: 606.5 mGycm. Automated Exposure Control for Dose Reduction was Utilized. TECHNIQUE: CT scan of the abdomen and pelvis is performed without oral or IV contrast. COMPARISON: Most recent CT February 11, 2020. Most recent ultrasound 2 days ago. FINDINGS: Within the limitations of a non-contrast study, the following observations are made. LUNG BASES: Mild bibasilar linear scarring and/or atelectasis. LIVER/GB: No significant abnormality is appreciated. PANCREAS: Mild generalized atrophy redemonstrated. SPLEEN: No significant abnormality is seen. ADRENALS: No significant abnormality is seen. KIDNEYS: Suspect punctate 1 mm calculus left kidney upper pole level coronal image 51. There is 4 mm nonobstructing calculus right kidney upper midpole level axial image 31. No hydronephrosis or obstruc ting ureteral calculi bilaterally. Some Cortical thinning of both kidneys noted. No intraluminal calc ulus in bladder. BOWEL: Stable small sized hiatal hernia. GENITAL ORGANS: Uterus surgically absent. LYMPH NODES: No greater than 1cm abdominal or pelvic lymph nodes are appreciated. OSSEOUS STRUCTURES: Levoconvex scoliosis centered at L2 level. Moderate disc space narrowing with vac uum disc phenomenon L5-S1 level. Mild height loss with sclerosis involving superior T12 endplate from prior suspected subacute in age. OTHER: No significant additional abnormality is seen. IMPRESSION: 1. Recurrent nonobstructing 4 mm calculus midpole level right kidney correlates with most recent ultr asound. Punctate 1 mm nonobstructing calculus upper to mid pole level left kidney seen on today's CT. No hydronephrosis or obstructing ureteral calculi bilaterally. 2. Suspected subacute mild compression type fracture deformity involving superior T12 endplate. Corre late clinically.
[2021-03-25 14:19] LABS: Albumin 3.13 g/dL (3.80-4.90); Gamma Globulin 0.63 g/dL (0.70-1.50)
--- NOTE | 2021-03-25 16:54 | PN ---
PROGRESS NOTE DATE OF SERVICE: 03/25/2021 REASON FOR FOLLOWUP: 1. Recurrent ESBL E coli urinary tract infection. 2. Gastroenteritis. INTERVAL HISTORY: The patient is afebrile. She is still complaining of nausea and vomiting. Diarrhea seems to have slowed down. No chest pain, shortness of breath or cough. PHYSICAL EXAMINATION: Blood pressure 132/70 with a pulse of 90, temperature 97.9. GENERAL DESCRIPTION: General description is a middle-aged female lying in bed in no distress. RESPIRATORY SYSTEM: Unlabored breathing. Clear to auscultation anteriorly. HEART: S1, S2. Regular rate and rhythm. ABDOMEN: Soft. No tenderness. LABS: No new labs have been obtained today. Stool cultures are currently pending. Urine is showing ESBL E coli. DIAGNOSTIC IMPRESSION AND PLAN: Patient with admission to hospital with acute nausea and vomiting in this patient who did have a persistent or recurrent ESBL E coli urinary tract infection with evidence of a renal stone, possibly contributing to recurrence of persistent urinary tract infection. Patient is covered with Invanz. Urology is on the case. Continue supportive care. MMODL / IJN: [id number] /
[2021-03-25] MEDS: DIPHENOX-ATROP 2.5-0.025 MG 1 EACH TAB PO PRN (19:29)
[2021-03-25] MEDS: rOPINIRole HCL 4 MG TABLET PO SCH (19:29)
[2021-03-25] MEDS: ZOLPIDEM 10 MG TAB PO SCH (19:29)
[2021-03-25] MEDS: CYCLOBENZAPRINE 10 MG TAB PO SCH (19:29)
[2021-03-26] MEDS: METOCLOPRAMIDE 10 MG TAB PO SCH ×3 (07:44→17:21)
[2021-03-26] MEDS: LOSARTAN 50 MG TAB PO SCH (08:28)
[2021-03-26] MEDS: CHOLECALCIFEROL 25 MCG (1000 IU) TABLET PO SCH (08:29)
[2021-03-26] MEDS: HEPARIN SODIUM,PORCINE/PF 5,000 UNIT/0.5 ML SYRINGE SQ SCH (08:29)
[2021-03-26] MEDS: PILOCARPINE 5 MG TAB PO SCH ×2 (08:29→17:21)
[2021-03-26] MEDS: PANTOPRAZOLE 40 MG TABLET PO SCH (08:29)
[2021-03-26] MEDS: DIPHENOX-ATROP 2.5-0.025 MG 1 EACH TAB PO PRN (08:29)
[2021-03-26] MEDS: LORATADINE 10 MG TAB PO SCH (08:29)
--- NOTE | 2021-03-26 08:29 | P.PN ---
Subjective Progress Note Date: 03/26/21 We were asked to see the patient for possible kidney stone and urine infection. A computed tomography scan identifies a 1 mm left upper pole stone and a 3 mm right upper pole stone. I do not think these are infected stones a. I do not think they have anything to do with her present urine infection. We discussed surgical treatment of the stones which would be elective. She is not interested at this point in time. I do not have any problem with that. From urologic standpoint she can be discharged home whenever you feel appropriate. She does not need urologic follow-up at this point in time. Objective - Vital Signs Vital signs: Vital Signs Temp 97.7 F 03/26/21 07:04 Pulse 100 03/26/21 07:04 Resp 17 03/26/21 07:04 BP 130/76 03/26/21 07:04 Pulse Ox 95 03/26/21 07:04 Intake & Output 03/25/21 03/26/21 03/26/21 18:59 06:59 18:59 Weight 74.7 kg Other: # Voids 1 - Labs CBC & Chem 7: 03/22/21 22:37 03/22/21 22:37 Labs: Abnormal Lab Results - Last 24 Hours (Table) 03/24/21 Range/Units 09:55 Albumin (PEP) 3.13 L (3.80-4.90) g/dL Gamma Globulins 0.63 L (0.70-1.50) g/dL Microbiology - Last 24 Hours (Table) 03/22/21 22:37 Stool Culture - Preliminary Stool 03/22/21 22:37 Urine Culture - Final Urine,Voided Escherichia coli
[2021-03-26] MEDS: VERAPAMIL SR 120 MG TABLET.ER PO SCH (08:30)
[2021-03-26] MEDS: NON FORMULARY DRUG (Vitamin B Complex [Vitamin B Complex] 1 EACH Capsule) PO SCH (08:31)
--- NOTE | 2021-03-26 09:45 | P.DS ---
Providers Date of admission: 03/23/21 00:41 Expected date of discharge: 03/26/21 Attending physician: Izabela Whiteside Consults: 03/23/21 00:51 Consult Physician Routine Consulting Provider: Tye Mendez Consult Reason/Comments: UTI; Hx of ESBL Do you want consulting provider notified?: Yes 03/25/21 10:22 Consult Physician Routine Consulting Provider: Sly Ramirez Consult Reason/Comments: infected stones Do you want consulting provider notified?: Yes [facility]: HISTORY OF PRESENT ILLNESS This is a 55-year-old female patient of Dr. Pak with past medical history of fibromyalgia, Sjogren syndrome, degenerative disc disease, MS, migraine headaches. Patient states that she is having diarrhea after every time she eats and has been using Lomotil and Imodium [id number]. She is complaining of cramps in the lower abdomen. She states she has had some fever and chills. She states she also has a left foot fracture as she tripped one month ago but has not sought treatment for this. She does give history of having antibiotics starting the beginning of February with Macrobid and followed by another antibiotic that she does not recall the name. At that time she was treated for an E. coli urinary tract infection.on February 13, 2020, patient underwent EGD and colonoscopy with Dr. Quintana which revealed mild gastritis, gastric polyps, duodenal biopsies and GE junction biopsies were obtained. Gastric biopsy revealed mild chronic gastritis, GE junction showed mild chronic esophagitis and negative for intestinal metaplasia. Eosinophils not identified. Patient presented to [facility] emergency center for evaluation and found to be afebrile, heart rate 110, blood pressure 131/81, pulse ox 99% on room air. WBC, hemoglobin normal, platelet count 529. Electrolytes and renal function were normal. AST 41, ALT 30 and alkaline phosphatase 167. Urinalysis was cloudy, leukoesterase large, calcium oxalate crystals moderate, urine bacteria rare, nitrate negative. Lactic acid 1.7. Left foot x-ray revealed calcaneal spurring. Fifth metatarsal base fracture. Renal ultrasound revealed nonobstructing bilateral renal calculi. Patient has been admitted to the pediatric/medical unit. 03/24: Patient's calcium was high at 11.3 and immunofixation, serum protein electrophoresis and PHT intact ordered. Patient states her last diarrhea was yesterday but she is not eating very much. Started, Zosyn discontinued. Questran was added for diarrhea. She has been afebrile, heart rate 97, blood pressure 148/78, pulse ox 96% on room air. Urine culture showing gram-negative bacilli from 03/22. Stool culture is in process. C. difficile toxin was negative. 03/25: Renal ultrasound revealed nonobstructing bilateral renal calculi. Consult added for urology regarding Stones causing frequent urinary tract infections. Patient has been seen and followed by Dr. Mendez with recommendations to continue Invanz. Urine culture has been finalized with E. coli ESBL. Patient has been afebrile, heart rate 98, blood pressure 132/71, pulse ox 90% on room air. Patient is complaining of diarrhea every time she eats any food but is okay with drinking liquids. She does have history of IBS and lactose free and gluten-free diet added. Patient states that she even had diarrhea after drinking Ensure last evening. She states she had vomiting this morning and is very nauseated and would like Zofran which is available. She did not eat breakfast. Repeat blood work ordered for tomorrow. 03/26: Patient has been seen by Dr. Julio regarding renal stones which he does not feel are infected stones and not relating to her current urinary infection. She is cleared from urology for discharge and does not need follow-up at this time. Dr. Mendez is recommending IV antibiotics, midline will be ordered. Patient has been afebrile, heart rate 100, blood pressure 130/76, pulse ox 95% on room air. Patient will be discharged home today in stable condition. ASSESSMENT AND PLAN 1. Diarrhea, resolved. 2. Recent treatment for urinary tract infection with 2 different antibiotics in February. 3. Acute recurrent ESBL E. coli urinary tract infection. 4. Hypertension. 5. Multiple sclerosis, stable without exacerbation. 6. Migraine headaches, stable. 7. Recurrent depression. 8. Restless leg syndrome. 9. Chronic anemia. 10. Sjogren's, stable. 11. Generalized anxiety disorder, insomnia. 12. GERD DISCHARGE PLAN Home on Monday Impression and plan of care have been directed as dictated by the signing physician. Cici Chatman nurse practitioner acting as scribe for signing physician. Patient Condition at Discharge: Good Plan - Discharge Summary New Discharge Prescriptions: New Cholecalciferol [Vitamin D3 (25 Mcg = 1000 Iu)] 50 mcg PO DAILY tablet Continue Vitamin B Complex 1 tab PO DAILY Cyclobenzaprine [Flexeril] 10 mg PO HS rOPINIRole HCL 10 mg PO HS Pilocarpine HCl [Salagen] 5 mg PO TID Dextroamphetamine Sulfate [Dexedrine] 15 mg PO BID Ascorbic Acid [Vitamin C] 500 mg PO BID Diclofenac Epolamine [Flector 1.3% Patch] 1 patch TRANSDERM Q12H PRN PRN Reason: Pain Pantoprazole Sodium [Protonix] 40 mg PO BID Metoclopramide HCl [Reglan] 10 mg PO AC-TID Diphenoxylate HCl/Atropine [Lomotil 2.5-0.025 mg Tablet] 1 tab PO Q8H PRN PRN Reason: Diarrhea Cyclobenzaprine [Flexeril] 10 mg PO TID PRN PRN Reason: Muscle Pain Cetirizine HCl 10 mg PO DAILY Zolpidem [Ambien] 10 mg PO HS Verapamil HCl [Verapamil ER] 120 mg PO DAILY predniSONE 10 - 30 mg PO TID PRN PRN Reason: inflamtion ondansetron HCL [Zofran] 8 mg PO TID Nystatin 100,000 Unit/gm Powd [Mycostatin Powder] 1 applic TOPICAL BID PRN PRN Reason: Skin Irritation Losartan Potassium 100 mg PO DAILY Diclofenac Sodium Gel [Voltaren Gel] 2 gm TOPICAL BID PRN PRN Reason: Pain Ubrogepant [Ubrelvy] 50 - 100 mg PO DAILY PRN PRN Reason: Migraine Headache Discharge Medication List Cyclobenzaprine [Flexeril] 10 mg PO HS 09/27/17 [History] Pilocarpine HCl [Salagen] 5 mg PO TID 09/27/17 [History] Vitamin B Complex 1 tab PO DAILY 09/27/17 [History] rOPINIRole HCL 10 mg PO HS 09/27/17 [History] Dextroamphetamine Sulfate [Dexedrine] 15 mg PO BID 12/20/18 [History] Ascorbic Acid [Vitamin C] 500 mg PO BID 11/25/19 [History] Diclofenac Epolamine [Flector 1.3% Patch] 1 patch TRANSDERM Q12H PRN 11/25/19 [History] Cetirizine HCl 10 mg PO DAILY 03/23/21 [History] Cyclobenzaprine [Flexeril] 10 mg PO TID PRN 03/23/21 [History] Diclofenac Sodium Gel [Voltaren Gel] 2 gm TOPICAL BID PRN 03/23/21 [History] Diphenoxylate HCl/Atropine [Lomotil 2.5-0.025 mg Tablet] 1 tab PO Q8H PRN 03/23/21 [History] Losartan Potassium 100 mg PO DAILY 03/23/21 [History] Metoclopramide HCl [Reglan] 10 mg PO AC-TID 03/23/21 [History] Nystatin 100,000 Unit/gm Powd [Mycostatin Powder] 1 applic TOPICAL BID PRN 03/23/21 [History] Pantoprazole Sodium [Protonix] 40 mg PO BID 03/23/21 [History] Ubrogepant [Ubrelvy] 50 - 100 mg PO DAILY PRN 03/23/21 [History] Verapamil HCl [Verapamil ER] 120 mg PO DAILY 03/23/21 [History] Zolpidem [Ambien] 10 mg PO HS 03/23/21 [History] ondansetron HCL [Zofran] 8 mg PO TID 03/23/21 [History] predniSONE 10 - 30 mg PO TID PRN 03/23/21 [History] Cholecalciferol [Vitamin D3 (25 Mcg = 1000 Iu)] 50 mcg PO DAILY tablet 03/26/21 [Rx] Follow up Appointment(s)/Referral(s): [facility], [NON-STAFF] - ([facility] will start IV antibiotic teaching on 03/27/21. They will call you to set up your first visit. ) [facility] [NON-STAFF] - ([facility] will deliver the IV antibiotic supplies this evening or first thing tomorrow. They will call you before delivering. ) Sujit Pak DO [Primary Care Provider] - 1 Week Tye Mendez MD [STAFF PHYSICIAN] - 2 Weeks Discharge Disposition: HOME WITH HOME HEALTH SERVICES
[2021-03-26] MEDS: CHOLESTYRAMINE (WITH SUGAR) 4 GM PACKET PO SCH ×2 (11:02→17:17)
[2021-03-26 11:39] LABS: HCT 34.7 % (37.2-46.3); HGB 11.2 g/dL (12.0-15.0); MCH 31.2 pg (27.0-32.0); MCHC 32.3 g/dL (32.0-37.0); MCV 96.7 fL (80.0-97.0); Mean Platelet Volume 9.7 fL (9.5-12.2); Platelet Count 442 X 10*3/uL (140-440); RBC 3.59 X 10*6/uL (4.10-5.20); WBC 5.93 X 10*3/uL (4.50-10.00)
[2021-03-26] MEDS: SODIUM CHLORIDE 0.9% 1,000 ML IV SCH (12:18)
--- NOTE | 2021-03-26 14:07 | PN ---
PROGRESS NOTE DATE OF SERVICE: 03/26/2021 REASON FOR FOLLOWUP: ESBL E coli urinary tract infection. INTERVAL HISTORY: The patient is afebrile. The patient is breathing comfortably. The patient denies having any chest pain, shortness of breath or cough. No further nausea, vomiting, abdominal pain and no bowel movement since morning. PHYSICAL EXAMINATION: Blood pressure 130/76, pulse 100, temperature 97.7. She is 95% on room air. GENERAL DESCRIPTION: General description is a middle-aged female lying in bed in no distress. RESPIRATORY SYSTEM: Unlabored breathing. Clear to auscultation anteriorly. HEART: S1, S2. Regular rate and rhythm. ABDOMEN: Soft. No tenderness. LABS: Hemoglobin is 11.2, white count 5.93. Urine with ESBL E coli. Cultures have been negative. DIAGNOSTIC IMPRESSION AND PLAN: Patient with ESBL Escherichia coli urinary tract infection in this patient who did have recurrent episodes; possible stones. Urology is following the patient. She will get 2 weeks of IV Invanz and close outpatient followup. MMODL / IJN: [id number] / KARIE
[2021-03-26 15:15] VITALS: BP 141/86; PULSE 110; RESP 16; TEMP 98.3
[2021-03-26] MEDS: ERTAPENEM 1 GM in SODIUM CHLORIDE 0.9% 50 ML IVPB SCH (18:05)
[2021-03-26 18:58] LABS: African American GFR (CKD) 114.6 (60.0-200.0); Albumin 3.8 g/dL (3.80-4.90); Albumin/Globulin Ratio 1.73 (1.60-3.17); Anion Gap 19.2 mmol/L (4.00-12.00); BUN/Creat Ratio 7.14 Ratio (12.00-20.00); Calcium 10.1 mg/dL (8.7-10.3); Carbon Dioxide 15.8 mmol/L (21.6-31.8); Globulin 2.2 g/dL (1.6-3.3); Non-African American GFR(CKD) 98.9 (60.0-200.0); Potassium 4.3 mmol/L (3.5-5.5); Total Bilirubin 0.2 mg/dL (0.2-1.2)
== END 2021-03-26 18:45 | disposition home health service (06) ==
LOC: EC 20:42 → INTOOBSV 03-23 00:41 → 6PED 03-23 00:41 → 4SSUR 03-24 01:03 → UNDODISIN 03-26 18:45
PROVIDERS: ADMIT Family Medicine; ATTEND Family Medicine
DX: K52.9 Noninfective gastroenteritis and colitis, unspecified (principal); N39.0 Urinary tract infection, site not specified; Z16.12 Extended spectrum beta lactamase (ESBL) resistance; B96.20 Unspecified Escherichia coli [E. coli] as the cause of diseases classified elsewhere; I10 Essential (primary) hypertension; G35 Multiple sclerosis; G43.909 Migraine, unspecified, not intractable, without status migrainosus; F33.9 Major depressive disorder, recurrent, unspecified; G25.81 Restless legs syndrome; D64.9 Anemia, unspecified; M35.00 Sjogren syndrome, unspecified; F41.1 Generalized anxiety disorder; M79.7 Fibromyalgia; M19.90 Unspecified osteoarthritis, unspecified site; R50.9 Fever, unspecified; S92.352A Displaced fracture of fifth metatarsal bone, left foot, initial encounter for closed fracture; K29.50 Unspecified chronic gastritis without bleeding; K21.00 Gastro-esophageal reflux disease with esophagitis, without bleeding; K31.7 Polyp of stomach and duodenum; E66.9 Obesity, unspecified; Z68.28 Body mass index [BMI] 28.0-28.9, adult; G47.00 Insomnia, unspecified; N20.0 Calculus of kidney; M77.32 Calcaneal spur, left foot; Z16.24 Resistance to multiple antibiotics; Z87.440 Personal history of urinary (tract) infections; Z86.19 Personal history of other infectious and parasitic diseases; Z87.442 Personal history of urinary calculi; Z79.899 Other long term (current) drug therapy; Z88.6 Allergy status to analgesic agent; Z90.710 Acquired absence of both cervix and uterus; Z90.49 Acquired absence of other specified parts of digestive tract; Z82.49 Family history of ischemic heart disease and other diseases of the circulatory system; Z82.5 Family history of asthma and other chronic lower respiratory diseases; Z80.8 Family history of malignant neoplasm of other organs or systems; Z83.3 Family history of diabetes mellitus
CPT/HCPCS: 96376 ×2; 96361 ×5; 96366 ×2; 96372 ×4; 96365; 29515; 96367; 96375; 99285; 36415; 36410; 76937; 80053 ×2; 83605; 83690; 85025; 85027; 81001; 87324; 84165; 83970; 87086; 87045 ×2; 83630; 87077; 87186; 87046 ×2; 86334; 73630; 76770; 74176; G0378 ×5; C1751; J2543; J2060; J2405 ×3; J1335 ×3; J1644 ×4; 96374

== ENCOUNTER → 2021-05-04 | Outpatient (CLI) | payer MEDICARE ==
--- NOTE | 2021-05-05 10:49 | XR ---
Thoracic spine HISTORY: Pain Frontal and lateral views of the thoracic spine and 3 images correlated to previous spine 12/16/2015, C T scan 03/25/2021 The superior endplate of T12 shows depression, mild loss of height of only 10-20% similar to prior CT . Multilevel thoracic spondylosis is present. There is a marked scoliosis which is S-shaped in the th oracic lumbar spine. Loss of disc height is present at the intervertebral levels in the midthoracic r egion. There is a rotatory component. Some probable basilar atelectatic changes are noted incidentall y within the lungs. Aorta is dense. Bone mineralization appears reduced. IMPRESSION: T12 endplate fracture is again noted. Degenerative disc disease. Rotatory thoracic lumbar scoliosis.
--- NOTE | 2021-05-05 10:52 | XR ---
Right ankle and left foot HISTORY: Pain right ankle, pain left foot Right ankle: 3 views of the right ankle Patients shows postop change status post open reduction internal fixation for distal fibular fracture . There is soft tissue swelling at the right ankle. Complete joint space loss present at the tibiotal ar joint, there is remodeling, subchondral sclerosis and possible geode formation, hypertrophic dosdon es with marginal spurring are present. Plantar calcaneal spur is noted incidentally. Bone mineralizat ion is reduced overall. There is subluxation laterally present at the tibiotalar joint. IMPRESSION: Soft tissue swelling, marked osteoarthritic change. Osteopenia and postoperative change. Left foot: Proximal fifth metatarsal fracture is present with displacement, fracture fragment distrac marge laterally approximately 3 mm. No evident dislocation. There is an enthesophyte at the insertion o f the Achilles tendon. Plantar cannula spur is noted. IMPRESSION: Displaced proximal fifth metatarsal fracture.
== END | disposition home or self-care (01) ==
LOC: RADXRMAIN 16:13
PROVIDERS: ATTEND Family Medicine
DX: M48.54XA Collapsed vertebra, not elsewhere classified, thoracic region, initial encounter for fracture (principal); M19.072 Primary osteoarthritis, left ankle and foot
CPT/HCPCS: 72072

== ENCOUNTER → 2021-05-27 | Outpatient (CLI) | payer MEDICARE ==
[2021-05-27 23:19] LABS: Basophils # (A) 0.02 X 10*3/uL (0.00-0.10); Basophils % (A) 0.2 %; Eosinophils # (A) 0 X 10*3/uL (0.04-0.35); Eosinophils % (A) 0 %; HCT 34.2 % (37.2-46.3); HGB 10.3 g/dL (12.0-15.0); Lymphocytes # (A) 0.93 X 10*3/uL (0.90-5.00); Lymphocytes % (A) 10.4 %; MCH 28.7 pg (27.0-32.0); MCHC 30.1 g/dL (32.0-37.0); MCV 95.3 fL (80.0-97.0); Mean Platelet Volume 9.3 fL (9.5-12.2); Monocytes # (A) 0.44 X 10*3/uL (0.20-1.00); Monocytes % (A) 4.9 %; Neutrophils # (A) 7.43 X 10*3/uL (1.80-7.70); Neutrophils % (A) 83.4 %; Platelet Count 513 X 10*3/uL (140-440); RBC 3.59 X 10*6/uL (4.10-5.20); RDW 14.3 % (11.5-14.5); WBC 8.92 X 10*3/uL (4.50-10.00)
[2021-05-28 05:00] LABS: % Iron Saturation 7.76 (12.00-45.00); ALT 28 U/L (8-44); AST 19 U/L (13-35); African American GFR (CKD) 83.9 (60.0-200.0); Albumin 4.5 g/dL (3.8-4.9); Alkaline Phosphatase 137 U/L (41-126); BUN/Creat Ratio 21.85 Ratio (12.00-20.00); Blood Urea Nitrogen 19.8 mg/dL (9.0-27.0); Calcium 9.7 mg/dL (8.7-10.3); Chloride 101 mmol/L (96-109); Ferritin 19.7 ng/mL (10.0-291.0); Globulin 2.5 g/dL (1.6-3.3); Glucose 104 mg/dL (70-110); Iron 42 ug/dL (50-170); Magnesium 2.3 mg/dL (1.5-2.4); Non-African American GFR(CKD) 72.4 (60.0-200.0); Phosphorus 3.2 mg/dL (2.4-5.1); Potassium 4.2 mmol/L (3.5-5.5); Sodium 139 mmol/L (135-145); Total Bilirubin <0.20 mg/dL (0.30-1.20); Total Iron Binding Capacity 535 ug/dL (228-460); Uric Acid 5.1 mg/dL (2.9-7.7)
== END | disposition home or self-care (01) ==
LOC: LABWHC1 16:07
PROVIDERS: ATTEND Nurse Practitioner Family
DX: D64.9 Anemia, unspecified (principal); N39.0 Urinary tract infection, site not specified; N25.81 Secondary hyperparathyroidism of renal origin; E55.9 Vitamin D deficiency, unspecified; M10.9 Gout, unspecified; N17.9 Acute kidney failure, unspecified; R80.9 Proteinuria, unspecified
CPT/HCPCS: 36415; 80053; 82306; 82728; 83540; 83550; 83735; 83970; 84100; 84550; 85025

== ENCOUNTER → 2021-09-30 | Outpatient (CLI) | payer MEDICARE ==
[2021-09-30 16:34] LABS: Creatinine,Urine Random 116.5 mg/dL; Protein/Creatinine Ratio,Urine 0.103
[2021-09-30 22:59] LABS: HCT 33.6 % (37.2-46.3); HGB 10.8 g/dL (12.0-15.0); MCH 32.3 pg (27.0-32.0); MCHC 32.1 g/dL (32.0-37.0); MCV 100.6 fL (80.0-97.0); Mean Platelet Volume 9.4 fL (9.5-12.2); NRBC Per 100 WBC 0 /100 WBCS (0.0-0.0); Platelet Count 356 X 10*3/uL (140-440); RBC 3.34 X 10*6/uL (4.10-5.20); RDW 14.2 % (11.5-14.5); WBC 12.45 X 10*3/uL (4.50-10.00)
[2021-10-01 00:34] LABS: Neutrophils # (M) 10.46 X 10*3/uL (2.00-8.90)
[2021-10-01 01:04] LABS: % Iron Saturation 34.61 (12.00-45.00); ALT 42 U/L (8-44); AST 22 U/L (13-35); African American GFR (CKD) 62.3 (60.0-200.0); Albumin 4.6 g/dL (3.8-4.9); Albumin/Globulin Ratio 2.07 (1.60-3.17); Alkaline Phosphatase 110 U/L (41-126); BUN/Creat Ratio 33.62 Ratio (12.00-20.00); Chloride 96 mmol/L (96-109); Globulin 2.2 g/dL (1.6-3.3); Glucose 134 mg/dL (70-110); Iron 141 ug/dL (50-170); Magnesium 1.5 mg/dL (1.5-2.4); Non-African American GFR(CKD) 53.7 (60.0-200.0); Phosphorus 2.5 mg/dL (2.4-5.1); Potassium 3.7 mmol/L (3.5-5.5); Sodium 140 mmol/L (135-145); Total Bilirubin <0.15 mg/dL (0.30-1.20); Total Iron Binding Capacity 407 ug/dL (228-460); Total Protein 6.8 g/dL (6.2-8.2); Uric Acid 6.5 mg/dL (2.9-7.7)
[2021-10-01 04:48] LABS: Anti-DNA, DS unit <1.0 IU/mL; DNA Double-Stranded NEGATIVE (NEGATIVE)
[2021-10-01 06:18] LABS: Appearance,Urine Clear (Clear); Bacteria,Urine None Seen /HPF (None Seen); Bilirubin,Urine Negative (Negative); Blood,Urine Negative (Negative); Color,Urine Yellow (Yellow); Ketones,Urine Negative (Negative); Leukocyte Esterase,Urine Trace (Negative); Nitrite,Urine Negative (Negative); Protein,Urine Trace (Negative); RBC,Urine 0-2 /HPF (0-2); Specific Gravity,Urine 1.028 (1.001-1.030); Urobilinogen,Urine 0.2 (0.2,1.0)
[2021-10-01 12:54] LABS: Free Kappa Lt Chain Qnt, Serum 1.58 mg/dL (0.33-1.94); Free Lambda Lt Chain Qnt, Seru 1.53 mg/dL (0.57-2.63)
[2021-10-01 14:30] LABS: C-ANCA <1:20 Titer (<1:20)
== END | disposition home or self-care (01) ==
LOC: LABWHC1 14:37
PROVIDERS: ATTEND Nurse Practitioner Family
DX: N17.9 Acute kidney failure, unspecified (principal); D64.9 Anemia, unspecified; N39.0 Urinary tract infection, site not specified; R80.9 Proteinuria, unspecified
CPT/HCPCS: 36415; 80053; 81001; 82306; 82570; 82728; 83516; 83540; 83550; 83735; 83883; 83970; 84100; 84156; 84550; 85025; 86038; 86160; 86162; 86225; 86255; 86334

== ENCOUNTER → 2021-10-28 | Outpatient (CLI) | payer MEDICARE ==
--- NOTE | 2021-10-29 05:45 | MR ---
EXAMINATION TYPE: MR brain/cspine wo/w DATE OF EXAM: 10/28/2021 COMPARISON: 04/19/2019 and 02/22/2018 HISTORY: MS F/U, vertigo, migraines, weakness, vision changes. CONTRAST: Standard multiplanar, multisequence MRI departmental protocol images were obtained without contrast a nd with 8 mL intravenous Gadavist gadolinium contrast. Brain Diffusion images show no evidence of an acute infarct. Ventricles are of normal size. There is no mas s effect or midline shift. There is no evidence of intracranial hemorrhage. There are a few small are as of increased signal at the weems-white matter junction of both cerebral hemispheres. Total numbers less than 10 and these measure up to maximum 4 mm. There is a larger 9 mm lesion in the right frontal lobe lateral white matter. The corpus callosum is intact. Brainstem is intact. Cerebellum is intact. There is no evidence of orb ital mass. There is no pathologic enhancement. There is normal enhancement of the venous sinuses. IMPRESSION: White matter signal changes that could relate to demyelinating disease and less likely microvascular ischemia and not changed compared to old exam. No evidence of cortical infarct. Cervical spine. Cervical vertebra have normal alignment. Disc spaces are fairly normal. There is small posterior disc bulging at C5-6. Cervical spinal cord has normal signal pattern. No edema. Prevertebral soft tissues are intact. There is no evidence of a fracture. There is no pathologic enhancement in the cervical s pine. IMPRESSION: No spinal stenosis. Small posterior disc bulge at C5-6. No evidence of demyelinating disease. No pancho nge.
== END | disposition home or self-care (01) ==
LOC: RADMRIMAIN 13:45
PROVIDERS: ATTEND Psychiatry & Neurology Neurology
DX: M50.222 Other cervical disc displacement at C5-C6 level (principal); R90.89 Other abnormal findings on diagnostic imaging of central nervous system
CPT/HCPCS: 70553; 72156; A9585

== ENCOUNTER → 2021-10-29 | Outpatient (CLI) | payer MEDICARE ==
--- NOTE | 2021-10-30 02:28 | MR ---
EXAMINATION TYPE: MR thoracic spine wo/w con DATE OF EXAM: 10/29/2021 COMPARISON: None HISTORY: MULTIPLE SCLEROSIS, back pain CONTRAST: Standard multiplanar, multisequence MRI departmental protocol images were obtained without contrast a nd with 8 mL intravenous Gadavist gadolinium contrast. Multiplanar multiecho imaging of the thoracic spine without and with IV contrast. The thoracic vertebra have fairly normal alignment. There is slight dextroscoliosis. No evidence of c ompression fracture. There are minor degenerative disc changes in the thoracic spine. There is a mild compression deformity of the superior endplate of T12 vertebra of 10%. There is no paraspinal mass. On the T2 images there is slight increased signal in the superior T12 vertebra consistent with acute or subacute fracture. There is no pathologic enhancement. IMPRESSION: T12 mild compression fracture. No evidence of demyelinating disease in the thoracic spinal cord. No t horacic spinal stenosis. The thoracic spinal cord has normal signal pattern. No edema. No thoracic spinal stenosis.
== END | disposition home or self-care (01) ==
LOC: RADMRIMAIN 12:10
PROVIDERS: ATTEND Psychiatry & Neurology Neurology
DX: M48.54XA Collapsed vertebra, not elsewhere classified, thoracic region, initial encounter for fracture (principal)
CPT/HCPCS: 72157; A9585

== ENCOUNTER 2021-11-17 12:50 | Inpatient (IN) | payer MEDICARE ==
[2021-11-17] MEDS ORDERED: ACETAMINOPHEN TAB 325 MG TAB PO STA ×2 (13:20→13:37)
[2021-11-17] MEDS ORDERED: SODIUM CHLORIDE 0.9% 500 ML 500 ML IV STA ×2 (13:26→13:37)
--- NOTE | 2021-11-17 14:08 | XR ---
EXAMINATION TYPE: XR chest 2V DATE OF EXAM: 11/17/2021 COMPARISON: 01/27/2020 HISTORY: Shortness of breath TECHNIQUE: Frontal and lateral views of the chest are obtained. FINDINGS: Scattered senescent parenchymal changes noted. No evidence for infiltrate. No evidence for atelectasis. Heart size is stable. Mediastinal structures are stable and grossly unremarkable. No evidence for hilar prominence. Degenerative changes dorsal spine. IMPRESSION: 1. No evidence for acute pulmonary disease.
--- NOTE | 2021-11-17 14:09 | XR ---
EXAMINATION TYPE: XR ankle complete RT DATE OF EXAM: 11/17/2021 COMPARISON: 05/04/2021 HISTORY: Pain TECHNIQUE: Frontal, lateral and oblique images of the right ankle are obtained. COMPARISON: None. FINDINGS: Postoperative changes with plate fixation of the distal fibula. There is soft tissue swelli ng about the ankle. Moderate degenerative narrowing noted of the tibiotalar joint space loose body no marge anterior compartment unchanged from prior study. No bony destructive process seen at this time. N o acute fracture or dislocation. IMPRESSION: Postoperative changes with soft tissue swelling.
[2021-11-17 14:40] LABS: Basophils % (A) 0 %; Eosinophils # (A) 0.1 k/uL (0-0.7); Eosinophils % (A) 0 %; HCT 31.4 % (34.0-46.0); HGB 10.2 gm/dL (11.4-16.0); Lymphocytes # (A) 0.7 k/uL (1.0-4.8); Lymphocytes % (A) 5 %; MCH 33.8 pg (25.0-35.0); MCHC 32.4 g/dL (31.0-37.0); MCV 104.1 fL (80.0-100.0); Macrocytosis Moderate; Mean Platelet Volume 6.8; Monocytes # (A) 0.8 k/uL (0-1.0); Monocytes % (A) 6 %; Neutrophils # (A) 12.7 k/uL (1.3-7.7); Neutrophils % (A) 88 %; Platelet Count 340 k/uL (150-450); RBC 3.02 m/uL (3.80-5.40); RDW 14.9 % (11.5-15.5); WBC 14.5 k/uL (3.8-10.6)
[2021-11-17 14:57] LABS: Albumin 3.7 g/dL (3.5-5.0); Potassium 3.6 mmol/L (3.5-5.1); Total Bilirubin 1.1 mg/dL (0.2-1.3); Total Protein 6.6 g/dL (6.3-8.2); Uric Acid 8.5 mg/dL (3.7-7.4)
[2021-11-17] MEDS ORDERED: VANCOMYCIN IV PER PHARMACY 1 EACH MISC MISCELLANE PRN (15:27)
--- NOTE | 2021-11-17 15:27 | ED ---
General Adult HPI - General Chief complaint: Extremity Injury, Lower Stated complaint: rt ankle injury Time Seen by Provider: 11/17/21 13:05 Source: patient, EMS Mode of arrival: EMS Limitations: no limitations - History of Present Illness Initial comments: This 55-year-old female presents emergency department with right ankle pain that began on Monday. Daughter in room states patient has been complaining of right ankle pain since Monday evening and daughter got worried when mother did not answer her calls today. Daughter in room states she did talk to her mother yesterday afternoon, however mother did not answer text today so she called EMS. Daughter in room states EMS found patient on the floor and patient states she is unsure how long she was there. Patient states any movement or touching her right ankle seems to worsen the pain. Patient states that the last few days it has gotten bigger and she has noticed redness present. Patient states she did have surgery on the ankle years ago and has not had any palpitations. She states she was limping on this leg and was able to bear weight on it. Patient states her pain is currently 10/10. She states she has been experiencing chills but is unsure if she has had a fever. Patient denies taking any medications to help with pain. She denies any chest pain, shortness of breath, abdominal pain, nausea, vomiting, change in bowel or bladder, change in appetite, lightheadedness, dizziness, change in vision, rash. - Related Data Home Medications Medication Instructions Recorded Confirmed Cyclobenzaprine [Flexeril] 10 mg PO HS 09/27/17 11/17/21 Pilocarpine HCl [Salagen] 5 mg PO TID 09/27/17 11/17/21 rOPINIRole HCL [Requip] 10 mg PO HS 09/27/17 11/17/21 Dextroamphetamine Sulfate 15 mg PO BID 12/20/18 11/17/21 [Dexedrine] Ascorbic Acid [Vitamin C] 500 mg PO BID 11/25/19 11/17/21 Cetirizine HCl 10 mg PO DAILY 03/23/21 11/17/21 Diclofenac Sodium Gel [Voltaren 2 gm TOPICAL BID PRN 03/23/21 11/17/21 Gel] Verapamil HCl [Verapamil ER] 120 mg PO DAILY 03/23/21 11/17/21 Zolpidem [Ambien] 10 mg PO HS PRN 03/23/21 11/17/21 ondansetron HCL [Zofran] 8 mg PO TID 03/23/21 11/17/21 predniSONE 10 mg PO TID PRN 03/23/21 11/17/21 Azilsartan Med/Chlorthalidone 1 tab PO DAILY 11/17/21 11/17/21 [Edarbyclor 40-25 mg Tablet] Elderberry Fruit and Flower [Black 2 cap PO W/SUPPER 11/17/21 11/17/21 Elderberry 575 mg Cap] Ergocalciferol (Vitamin D2) 1,250 mcg PO Q30D 11/17/21 11/17/21 [Drisdol (50,000 Iu)] Famotidine 40 mg PO DAILY 11/17/21 11/17/21 Magnesium Oxide [Mag-Ox] 400 mg PO BID 11/17/21 11/17/21 Metoprolol Tartrate [Lopressor] 50 mg PO BID 11/17/21 11/17/21 Zinc 50 mg PO BID 11/17/21 11/17/21 traZODone HCL [Desyrel] 100 mg PO HS 11/17/21 11/17/21 Allergies Allergy/AdvReac Type Severity Reaction Status Date / Time aspirin AdvReac Abdominal Verified 11/17/21 17:55 Pain Review of Systems ROS Statement: Those systems with pertinent positive or pertinent negative responses have been documented in the HPI. ROS Other: All systems not noted in ROS Statement are negative. Past Medical History Past Medical History: Coronary Artery Disease (CAD), Chest Pain / Angina, Fibromyalgia, Musculoskeletal Disorder, Renal Disease Additional Past Medical History / Comment(s): Migraines, Shrgren syndrome, DDD, MS, fibromyalgia, Right BBB, CKD, Tarsal tunnel syndrome, History of Any Multi-Drug Resistant Organisms: ESBL Date of last positivie culture/infection: 03/22/21 MDRO Source:: ESBL URINE Past Surgical History: Appendectomy, Hysterectomy, Orthopedic Surgery Additional Past Surgical History / Comment(s): right ankle, abdominal laparoscopies, Prexacral Neurectomy, Cryosurgery, Past Anesthesia/Blood Transfusion Reactions: No Reported Reaction Past Psychological History: No Psychological Hx Reported Smoking Status: Never smoker Past Alcohol Use History: None Reported Past Drug Use History: None Reported - Past Family History Father Family Medical History: AICD/Pacemaker, Congestive Heart Failure (CHF), COPD, Diabetes Mellitus, Myocardial Infarction ([place]) Additional Family Medical History / Comment(s): Father at age 83 in his sleep. He has history of AICD. Mother Family Medical History: Hypertension Additional Family Medical History / Comment(s): Mother is alive at age 77 with history of hypertension and bronchiectasis. Patient has 2 brothers with no major medical problems. Patient does not have any sisters. Patient is one daughter with no major medical problems. General Exam Limitations: no limitations General appearance: alert, in no apparent distress Head exam: Present: atraumatic, normocephalic, normal inspection Eye exam: Present: normal appearance, PERRL, EOMI. Absent: scleral icterus, conjunctival injection, periorbital swelling Pupils: Present: normal accommodation ENT exam: Present: normal exam, mucous membranes moist Neck exam: Present: normal inspection, full ROM. Absent: tenderness, meningismus, lymphadenopathy Respiratory exam: Present: normal lung sounds bilaterally. Absent: respiratory distress, wheezes, rales, rhonchi, stridor, chest wall tenderness Cardiovascular Exam: Present: normal rhythm, tachycardia (128), normal heart sounds. Absent: systolic murmur, diastolic murmur, rubs, gallop, clicks GI/Abdominal exam: Present: soft, normal bowel sounds. Absent: distended, tenderness, guarding, rebound, rigid Extremities exam: Present: full ROM, normal capillary refill. Absent: normal inspection (Patient with erythema, warmth and tenderness over lateral and medial malleolus), tenderness, pedal edema, joint swelling, calf tenderness Back exam: Present: normal inspection, full ROM. Absent: CVA tenderness (R), CVA tenderness (L), paraspinal tenderness, vertebral tenderness Neurological exam: Present: alert, oriented X3, CN II-XII intact Psychiatric exam: Present: normal affect, normal mood Skin exam: Present: warm, dry, intact, normal color. Absent: rash Course Vital Signs 11/17/21 11/17/21 11/17/21 12:53 17:33 17:43 Temperature 101.4 F H 99.3 F Pulse Rate 137 H 116 H Respiratory 16 18 Rate Blood Pressure 146/97 119/73 O2 Sat by Pulse 97 94 L Oximetry 11/17/21 19:00 Temperature Pulse Rate 106 H Respiratory 16 Rate Blood Pressure 109/75 O2 Sat by Pulse 94 L Oximetry EKG Findings - EKG Comments: EKG Findings:: EKG impression: Sinus tachycardia. Ventricular rate 116 bpm. VT interval 138. QRS duration 120. QT/QTc 342/411. Bit of a my attending, Medical Decision Making - Medical Decision Making This 55-year-old female presents emergency Department with right ankle pain that began on Monday. Labs with leukocytosis-white blood cells 14.5, hemoglobin 10.2, creatine kinase 1225, C-reactive protein 9.0 COVID-19, influenza A/B not detected. X-ray ankle complete right impression: Postoperative changes with soft tissue swelling. Patient likely with right septic ankle joint. Patient was also assessed and evaluated by my attending, . Chest x-ray without any evidence for acute disease. I did speak with who suggested patient be admitted to orthopedics with himself on his consult. Spoke with with orthopedics who agreed to admit patient to his services. He requested I also consult infectious disease. He requested I place an MRI of right ankle with and without contrast. Patient was started on IV fluids, Zosyn and vancomycin. Patient agreed to be admitted to the hospital for further workup, evaluation and treatment. Case discussed in detail my attending, . Lactic acid ordered at 13:27 and 17:55- I did request this lab; lactic acid pending prior to admission-patient currently on 130mls/hr and has been given 1 L bolus. - Lab Data Result diagrams: 11/17/21 14:16 11/17/21 14:16 Lab Results 11/17/21 11/17/21 11/17/21 Range/Units 14:08 14:08 14:16 WBC 14.5 H (3.8-10.6) k/uL RBC 3.02 L (3.80-5.40) m/uL Hgb 10.2 L (11.4-16.0) gm/dL Hct 31.4 L (34.0-46.0) % MCV 104.1 H (80.0-100.0) fL MCH 33.8 (25.0-35.0) pg MCHC 32.4 (31.0-37.0) g/dL RDW 14.9 (11.5-15.5) % Plt Count 340 (150-450) k/uL MPV 6.8 Neutrophils % 88 % Lymphocytes % 5 % Monocytes % 6 % Eosinophils % 0 % Basophils % 0 % Neutrophils # 12.7 H (1.3-7.7) k/uL Lymphocytes # 0.7 L (1.0-4.8) k/uL Monocytes # 0.8 (0-1.0) k/uL Eosinophils # 0.1 (0-0.7) k/uL Basophils # 0.0 (0-0.2) k/uL Macrocytosis Moderate ESR 94 H (0-20) mm/hr Sodium (137-145) mmol/L Potassium (3.5-5.1) mmol/L Chloride (98-107) mmol/L Carbon Dioxide (22-30) mmol/L Anion Gap mmol/L BUN (7-17) mg/dL Creatinine (0.52-1.04) mg/dL Est GFR (CKD-EPI)AfAm (>60 ml/min/1.73 sqM) Est GFR (CKD-EPI)NonAf (>60 ml/min/1.73 sqM) Glucose (74-99) mg/dL Uric Acid (3.7-7.4) mg/dL Calcium (8.4-10.2) mg/dL Total Bilirubin (0.2-1.3) mg/dL AST (14-36) U/L ALT (4-34) U/L Alkaline Phosphatase (38-126) U/L Creatine Kinase (30-135) U/L C-Reactive Protein (<1.0) mg/dL Total Protein (6.3-8.2) g/dL Albumin (3.5-5.0) g/dL Coronavirus (PCR) Not Detected (Not Detectd) Influenza Type A RNA Not Detected (Not Detectd) Influenza Type B (PCR) Not Detected (Not Detectd) 11/17/21 Range/Units 14:16 WBC (3.8-10.6) k/uL RBC (3.80-5.40) m/uL Hgb (11.4-16.0) gm/dL Hct (34.0-46.0) % MCV (80.0-100.0) fL MCH (25.0-35.0) pg MCHC (31.0-37.0) g/dL RDW (11.5-15.5) % Plt Count (150-450) k/uL MPV Neutrophils % % Lymphocytes % % Monocytes % % Eosinophils % % Basophils % % Neutrophils # (1.3-7.7) k/uL Lymphocytes # (1.0-4.8) k/uL Monocytes # (0-1.0) k/uL Eosinophils # (0-0.7) k/uL Basophils # (0-0.2) k/uL Macrocytosis ESR (0-20) mm/hr Sodium 132 L (137-145) mmol/L Potassium 3.6 (3.5-5.1) mmol/L Chloride 94 L (98-107) mmol/L Carbon Dioxide 29 (22-30) mmol/L Anion Gap 9 mmol/L BUN 23 H (7-17) mg/dL Creatinine 1.26 H (0.52-1.04) mg/dL Est GFR (CKD-EPI)AfAm 56 (>60 ml/min/1.73 sqM) Est GFR (CKD-EPI)NonAf 49 (>60 ml/min/1.73 sqM) Glucose 111 H (74-99) mg/dL Uric Acid 8.5 H (3.7-7.4) mg/dL Calcium 9.0 (8.4-10.2) mg/dL Total Bilirubin 1.1 (0.2-1.3) mg/dL AST 68 H (14-36) U/L ALT 40 H (4-34) U/L Alkaline Phosphatase 96 (38-126) U/L Creatine Kinase 1225 H* (30-135) U/L C-Reactive Protein 9.0 H (<1.0) mg/dL Total Protein 6.6 (6.3-8.2) g/dL Albumin 3.7 (3.5-5.0) g/dL Coronavirus (PCR) (Not Detectd) Influenza Type A RNA (Not Detectd) Influenza Type B (PCR) (Not Detectd) Disposition Clinical Impression: Leukocytosis, Right ankle pain, Fever, Septic joint Disposition: ADMITTED IP TO THIS HOSP Condition: Serious
[2021-11-17] MEDS ORDERED: HYDROCORTISONE SUCCINATE 100 MG/2 ML VIAL IV STA (15:29)
[2021-11-17] MEDS ORDERED: PIPERACILLIN-TAZOBACTAM 3.375 GM in SODIUM CHLORIDE 0.9% 100 ML IVPB STA (15:30)
[2021-11-17 15:40] LABS: Erythrocyte Sedimentation Rate 94 mm/hr (0-20)
[2021-11-17] MEDS ORDERED: VANCOMYCIN 1,500 MG in SODIUM CHLORIDE 0.9% 250 ML IVPB ONE (16:00)
[2021-11-17] MEDS ORDERED: NALOXONE 0.4 MG/ML 1 ML VIAL IV PRN (17:15)
[2021-11-17] MEDS ORDERED: ACETAMINOPHEN TAB 500 MG TAB PO PRN (17:15)
[2021-11-17] MEDS ORDERED: SODIUM CHLORIDE 0.9% 1,000 ML IV SCH (17:15)
[2021-11-17] MEDS ORDERED: ONDANSETRON 4 MG/2 ML VIAL IVP PRN (17:15)
[2021-11-17 18:57] LABS: Appearance,Urine Clear (Clear); Bilirubin,Urine Negative (Negative); Blood,Urine Small (Negative); Color,Urine Yellow; Glucose,Urine (UA) 1+ (Negative); Leukocyte Esterase,Urine Negative (Negative); Mucus,Urine Rare /hpf; Nitrite,Urine Negative (Negative); PH, Urine 6.5 (5.0-8.0); Protein,Urine 1+ (Negative); RBC,Urine 1 /hpf (0-5); Specific Gravity,Urine 1.018 (1.001-1.035); Squamous Epithelial Cell,Urine <1 /hpf (0-4); Urobilinogen,Urine <2.0 mg/dL (<2.0); WBC,Urine 2 /hpf (0-5)
[2021-11-17 19:05] LABS: Ketones,Urine 2+ (Negative)
--- NOTE | 2021-11-17 20:12 | P.HPOR ---
History of Present Illness H&P Date: 11/17/21 Patient is a pleasant 55-year-old female who is seen and examined in the emergency room #18 for further evaluation of her right ankle. Over the past 2-3 days she has been experiencing increased right ankle pain. She has severe pain with trying to ambulate on her right lower extremity or perform active range of motion with her right ankle. She denies any recent injuries to her right ankle. She has a history of previous bimalleolar ankle fracture requiring surgical intervention performed by Dr. Chen in 1985. She states she did undergo removal of hardware at her medial malleolus following a surgical intervention. She continues to have retained hardware at her right distal fibula. She is admitted to our service with Dr. Lacy on consult. Dr. Mendez in infectious disease has also been consulted. She is currently on antibiotic medication with vancomycin and Zosyn. She was initially afebrile but her most recent temperature is 99.3F. She does have leukocytosis with a WBC of 14.5. Her neutrophils are 12.7. Her creatinine kinase is significantly elevated at 1225. Her C-reactive protein is also elevated at 9. She does admit to easy bruising of the bilateral lower extremities which she states is chronic. She does have some bruising on her bilateral lower extremities at the bedside. Some her other chemistry is abnormal as well including sodium currently at 132. MRI imaging of the right ankle with and without contrast has been ordered. Past Medical History Past Medical History: Coronary Artery Disease (CAD), Chest Pain / Angina, Fibromyalgia, Musculoskeletal Disorder, Renal Disease Additional Past Medical History / Comment(s): Migraines, Shrgren syndrome, DDD, MS, fibromyalgia, Right BBB, CKD, Tarsal tunnel syndrome, History of Any Multi-Drug Resistant Organisms: ESBL Date of last positivie culture/infection: 03/22/21 MDRO Source:: ESBL URINE Past Surgical History: Appendectomy, Hysterectomy, Orthopedic Surgery Additional Past Surgical History / Comment(s): right ankle, abdominal laparoscopies, Prexacral Neurectomy, Cryosurgery, Past Anesthesia/Blood Transfusion Reactions: No Reported Reaction Past Psychological History: No Psychological Hx Reported Smoking Status: Never smoker Past Alcohol Use History: None Reported Past Drug Use History: None Reported - Past Family History Father Family Medical History: AICD/Pacemaker, Congestive Heart Failure (CHF), COPD, Diabetes Mellitus, Myocardial Infarction ([place]) Additional Family Medical History / Comment(s): Father at age 83 in his sleep. He has history of AICD. Mother Family Medical History: Hypertension Additional Family Medical History / Comment(s): Mother is alive at age 77 with history of hypertension and bronchiectasis. Patient has 2 brothers with no major medical problems. Patient does not have any sisters. Patient is one daughter with no major medical problems. Medications and Allergies Home Medications Medication Instructions Recorded Confirmed Type Cyclobenzaprine [Flexeril] 10 mg PO HS 09/27/17 11/17/21 History Pilocarpine HCl [Salagen] 5 mg PO TID 09/27/17 11/17/21 History rOPINIRole HCL [Requip] 10 mg PO HS 09/27/17 11/17/21 History Dextroamphetamine Sulfate 15 mg PO BID 12/20/18 11/17/21 History [Dexedrine] Ascorbic Acid [Vitamin C] 500 mg PO BID 11/25/19 11/17/21 History Cetirizine HCl 10 mg PO DAILY 03/23/21 11/17/21 History Diclofenac Sodium Gel [Voltaren 2 gm TOPICAL BID PRN 03/23/21 11/17/21 History Gel] Verapamil HCl [Verapamil ER] 120 mg PO DAILY 03/23/21 11/17/21 History Zolpidem [Ambien] 10 mg PO HS PRN 03/23/21 11/17/21 History ondansetron HCL [Zofran] 8 mg PO TID 03/23/21 11/17/21 History predniSONE 10 mg PO TID PRN 03/23/21 11/17/21 History Azilsartan Med/Chlorthalidone 1 tab PO DAILY 11/17/21 11/17/21 History [Edarbyclor 40-25 mg Tablet] Elderberry Fruit and Flower [Black 2 cap PO W/SUPPER 11/17/21 11/17/21 History Elderberry 575 mg Cap] Ergocalciferol (Vitamin D2) 1,250 mcg PO Q30D 11/17/21 11/17/21 History [Drisdol (50,000 Iu)] Famotidine 40 mg PO DAILY 11/17/21 11/17/21 History Magnesium Oxide [Mag-Ox] 400 mg PO BID 11/17/21 11/17/21 History Metoprolol Tartrate [Lopressor] 50 mg PO BID 11/17/21 11/17/21 History Zinc 50 mg PO BID 11/17/21 11/17/21 History traZODone HCL [Desyrel] 100 mg PO HS 11/17/21 11/17/21 History Allergies Allergy/AdvReac Type Severity Reaction Status Date / Time aspirin AdvReac Abdominal Verified 11/17/21 17:55 Pain Physical Examination Physical Exam: Patient is awake, alert, and oriented 3 Examination of the right ankle shows soft tissue swelling over the medial and lateral malleolus Evidence of some erythema over the right medial and lateral malleolus Significant pain with palpation over the right ankle and foot Patient unable to perform active dorsiflexion and plantar flexion on the right due to pain Patient is able to wiggle her toes minimally due to pain Neurovascularly intact right lower extremity Evidence of a well-healed incisions over the lateral malleolus and medial malleolus Calves are soft bilaterally Results Pertinent studies: X-rays of the right ankle taken on 11/17/2021: No evidence of fracture or dislocation within the right ankle; evidence of retained hardware at the right distal fibula; soft tissue swelling - Labs Labs: Abnormal Lab Results - Last 24 Hours (Table) 11/17/21 11/17/21 11/17/21 Range/Units 14:16 14:16 18:49 WBC 14.5 H (3.8-10.6) k/uL RBC 3.02 L (3.80-5.40) m/uL Hgb 10.2 L (11.4-16.0) gm/dL Hct 31.4 L (34.0-46.0) % MCV 104.1 H (80.0-100.0) fL Neutrophils # 12.7 H (1.3-7.7) k/uL Lymphocytes # 0.7 L (1.0-4.8) k/uL ESR 94 H (0-20) mm/hr Sodium 132 L (137-145) mmol/L Chloride 94 L (98-107) mmol/L BUN 23 H (7-17) mg/dL Creatinine 1.26 H (0.52-1.04) mg/dL Glucose 111 H (74-99) mg/dL Uric Acid 8.5 H (3.7-7.4) mg/dL AST 68 H (14-36) U/L ALT 40 H (4-34) U/L Creatine Kinase 1225 H* (30-135) U/L C-Reactive Protein 9.0 H (<1.0) mg/dL Urine Protein 1+ H (Negative) Urine Glucose (UA) 1+ H (Negative) Urine Ketones 2+ H (Negative) Urine Blood Small H (Negative) Urine Mucus Rare H (None) /hpf H & H 11/17/21 Range/Units 14:16 Hgb 10.2 L (11.4-16.0) gm/dL Hct 31.4 L (34.0-46.0) % Result Diagrams: 11/17/21 14:16 11/17/21 14:16 Assessment and Plan Assessment: Assessment: Probable septic right ankle joint Leukocytosis Significantly elevated creatinine kinase Elevated C-reactive protein Significant right ankle pain Inability to ambulate on right lower extremity due to ankle Erythema of the right ankle Significant pain with palpation over the right ankle History of ORIF for right bimalleolar ankle fracture History of removal of medial malleolar retained hardware Right distal fibular hardware remains intact Hyponatremia Febrile at presentation which has resolved Coronary artery disease Fibromyalgia Renal disease (1) Septic arthritis of right ankle Current Visit: Yes Status: Acute Code(s): M00.9 - PYOGENIC ARTHRITIS, UNSPECIFIED SNOMED Code(s): 6734923149932700 (2) History of ankle surgery Current Visit: Yes Status: Acute Code(s): Z98.890 - OTHER SPECIFIED POSTPROCEDURAL STATES SNOMED Code(s): 65364963443032486 (3) Retained orthopedic hardware Current Visit: Yes Status: Acute Code(s): Z96.9 - PRESENCE OF FUNCTIONAL IMPLANT, UNSPECIFIED SNOMED Code(s): 039386357 (4) Elevated C-reactive protein Current Visit: Yes Status: Acute Code(s): R79.82 - ELEVATED C-REACTIVE PROTEIN (CRP) SNOMED Code(s): 416121933879329 (5) Elevated creatine kinase Current Visit: Yes Status: Acute Code(s): R74.8 - ABNORMAL LEVELS OF OTHER SERUM ENZYMES SNOMED Code(s): 500935640 (6) Swelling of ankle Current Visit: Yes Status: Acute Code(s): M25.473 - EFFUSION, UNSPECIFIED ANKLE SNOMED Code(s): 384035410 (7) Hyponatremia Current Visit: Yes Status: Acute Code(s): E87.1 - HYPO-OSMOLALITY AND HYPONATREMIA SNOMED Code(s): 89227135 (8) Leukocytosis Current Visit: Yes Status: Acute Code(s): D72.829 - ELEVATED WHITE BLOOD CELL COUNT, UNSPECIFIED SNOMED Code(s): 142043121 (9) Right ankle pain Current Visit: Yes Status: Acute Code(s): M25.571 - PAIN IN RIGHT ANKLE AND JOINTS OF RIGHT FOOT SNOMED Code(s): 747484202 (10) Coronary artery disease Current Visit: Yes Status: Acute Code(s): I25.10 - ATHSCL HEART DISEASE OF [place] CORONARY ARTERY W/O ANG PCTRS SNOMED Code(s): 49300307 (11) Fibromyalgia Current Visit: Yes Status: Acute Code(s): M79.7 - FIBROMYALGIA SNOMED Code(s): 054060511 (12) Renal disease Current Visit: Yes Status: Acute Code(s): N28.9 - DISORDER OF KIDNEY AND URETER, UNSPECIFIED SNOMED Code(s): 06066622 Plan: Plan: 1. Patient has been discussed in detail with Dr. Lawrence. After further evaluation of the patient further discussion with the patient, further discussion with Dr. Lawrence, in reviewing her x-ray imaging, we will currently planned to schedule the patient for incision and drainage of the right ankle for septic right ankle to be performed tomorrow by Dr. Lawrence. We will request 11:30 AM. We will plan to review her right ankle MRI imaging when complete. Over the past 2-3 days she has been experiencing increased right ankle pain. She has severe pain with trying to ambulate on her right lower extremity or perform active range of motion with her right ankle. She denies any recent i njuries to her right ankle. She has erythema and swelling around the right ankle with significant pain with palpation of the right ankle. She has significant difficulty performing active range of motion of the right ankle which she states is due to pain. She is unable to perform significant dorsi flexion and plantar flexion on the right. She has significant pain with any active range of motion of the right ankle. Lab testing shows evidence of leukocytosis. She has significantly elevated creatinine kinase and C-reactive protein. She was also febrile at presentation. She does have a history of previous ORIF for bimalleolar ankle fracture with currently retained hardware of the right distal fibula. Given her overall clinical picture including physical examination and lab testing, this correlates well with a septic left ankle joint. Patient will become nothing by mouth at midnight, 11/18/2021, anticipation for surgical intervention tomorrow. We did discuss patient would need clearance by medicine prior to surgical intervention. Patient may eat a regular diet tonight. We will continue to follow the patient. 2. Patient currently waiting for consultation by Dr. Lacy in medicine and Dr. Mendez in infectious disease. 3. Patient will continue with antibiotic medications as prescribed. These medications may be modified by infectious disease per their recommendations. Time with Patient: Greater than 30 (Including obtaining history, physical examination, reviewing of imaging, and dictation.)
[2021-11-17] MEDS ORDERED: LIDOCAINE 1% INJ 10MG/ML (5 ML VIAL-PF) SQ ONE (20:42)
[2021-11-17] MEDS: MORPHINE SULFATE 4 MG/ML SYRINGE IV PRN (20:59)
--- NOTE | 2021-11-17 21:21 | P.PCN ---
Date of Procedure: 11/17/21 Procedure(s) Performed: Mrs. art is a 55-year-old female with a history of recent inflammation suspicious for septic arthritis of the right ankle. She is undergone surgical plate fixation of ankle fractures many years ago with removal of medial hardware, and over the past 3 days has had fevers, chills, and increasing pain and swelling redness and warmth of the right ankle. Please see dictation performed today by Lukasz Recinos PA-C. I have spoken to her at length about aspiration of the ankle as a more d efinitive assessment of whether the ankle is infected. We are planning for surgical irrigation and debridement tomorrow, but would prefer to have confirmation of the ankle containing pus prior to the surgical procedure. We also have ordered an MRI for evaluation of possible osteomyelitis of the ankle. I have discussed with her all these issues and have recommended aspiration tonight. She wishes to proceed and I have had a discussion with her about the potential risks and complications of this procedure, as being inclusive of, but not limited to: Bleeding, infection, scarring, discomfort, tendon and or capsular injury to the ankle, stiffness, introduction of infection, inability to obtain proper sample, pain, and other risks. I do feel that the benefits outweigh the risks and performing this procedure and have explained such to her. She wishes to proceed and has signed a consent form. Procedure: After appropriate consent was obtained from the patient, she was given morphine bolus 4 mg IV and allowed approximately 5 minutes for the morphine to have some effect. An anterolateral approach was planned for the aspiration. This area was carefully marked with a skin marking pen, and this area was infiltrated superficially with local anesthetic with a 25-gauge needle. Deeper infiltration was also performed down to the joint capsule. Subsequent, an 18-gauge needle was introduced under sterile technique into the ankle joint, yielding approximately 15 mL of purulent material. This aspiration was performed with gentle movement of the ankle to aspirate as much pus as possible. A total of approximately 15 mL of grayish brown grossly purulent material was extracted. A sample was used for wound culture, and the rest was sent for cell count and differential. She tolerated the procedure well and there was no complications and no obvious injury to blood vessels, nerves or tendons structures. I've explained to her now that we have confirmed that there is pus contained wi thin the ankle, she will need to undergo irrigation and debridement in the operating room tomorrow. I have this preliminarily planned for noon tomorrow and she is currently on Zosyn and vancomycin for antibiotics. Infectious disease consultation will be obtained with Dr. Metcalf. Dr. Lacy has already seen this patient.
--- NOTE | 2021-11-17 22:07 | US ---
EXAMINATION TYPE: US venous doppler duplex LE RT DATE OF EXAM: 11/17/2021 9:26 PM COMPARISON: 2019 CLINICAL HISTORY: pain. Right ankle pain; patient has open wound to the right ankle SIDE PERFORMED: Right TECHNIQUE: The lower extremity deep venous system is examined utilizing real time linear array sonog jed with graded compression, doppler sonography and color-flow sonography. VESSELS IMAGED: Common Femoral Vein Deep Femoral Vein Greater Saphenous Vein * Femoral Vein Popliteal Vein Small Saphenous Vein * Proximal Calf Veins (* superficial vessels) Right Leg: Negative for DVT IMPRESSION: 1. Right lower extremity ultrasound negative for deep venous thrombosis.
[2021-11-17] MEDS: ASCORBIC ACID 500 MG TAB PO SCH (22:40)
[2021-11-17] MEDS: CYCLOBENZAPRINE 10 MG TAB PO SCH (22:40)
[2021-11-17 23:46] LABS: Appearance,BF Cloudy; Color,BF Red; Nucleated Cells, Body Fluid 262500 /uL; RBC, Body Fluid 53500 /uL
[2021-11-17 23:47] LABS: Mononuclear WBC,Body Fluid 21 %; Polynuclear WBC,Body Fluid 79 %; Total Cells Counted,Body Fluid 100
--- NOTE | 2021-11-17 23:48 | P.CONS ---
History of Present Illness - Reason for Consult Consult date: 11/17/21 medical management, possible septic joint and possible osteomyelitis. Requesting physician: Chino Lawrence - Chief Complaint severe right ankle pain and swelling with possible septic joint. - History of Present Illness HISTORY OF PRESENT ILLNESS This is a 55-year-old female patient of Dr. Pak with past medical history of fibromyalgia, Sjogren syndrome, degenerative disc disease, MS, migraine headaches. patient presented to the emergency department at [facility] with complaint of severe pain in the right ankle area since Monday evening, patient did not answer her phone call today the family found her on the floor which patient not quite sure how long was down on the floor for does not remember the circumstances well did not pass out. EMS ended up bringing a Chin to the emergency department at [facility] where was seen and evaluated found to have significantly and large swelling tender and hot joint at the time. Ended up going for x-ray showed hardware of the fibia of right sidewith significant reactive osteomyelitis around the hardware with significant swelling and change in the joint. With other testing included elevated white blood cell, sed rate 94, CK was 1225 and C-reactive protein of 9.0. COVID-19 and influenza were negative. With above problem patient has high suspicion for septic joint, was started on IV vancomycin and Zosyn patient be seen infectious disease and orthopedic might drained the joint at this point for culture and management. REVIEW OF SYSTEMS Constitutional: Reports fever, reports chills, no night sweats. No weight change. No weakness, fatigue or lethargy. No daytime sleepiness. EENT: No headache. No blurred vision or double vision, no loss of vision. No loss of Hearing, no ringing in the ears, no dizziness. No nasal drainage or congestion. No epistaxis. No sore throat. Lungs: No shortness of breath, cough, no sputum production. No wheezing. Cardiovascular: No chest pain, no lower extremity edema. No palpitations. No paroxysmal nocturnal dyspnea. No orthopnea. No lightheadedness or dizziness. No syncopal episodes. Abdominal: Reports lower abdominal pain. No nausea, vomiting. Reports diarrhea. No constipation. No bloody or tarry stools.. No loss of appetite. Genitourinary: No dysuria, increased frequency, urgency. No urinary retention. Musculoskeletal: No myalgias. No muscle weakness, reported gait dysfunction, no frequent falls. No back pain. No neck pain. right foot pain and discomfort swelling redness been able to put pressure weight on it. Integumentary: No wounds, no lesions. No rash or pruritus. No unusual bruising. No change in hair or nails. Neurologic: No aphasia. No facial droop. No change in mentation. No head injury. No headache. No paralysis. No paresthesia. Psychiatric: No depression. No anxiety. No mood swings. Endocrine: No abnormal blood sugars. No weight change. No excessive sweating or thirst. No cold intolerance. SOCIAL HISTORY Patient is a lifelong nonsmoker, no marijuana or illicit drug use, no alcohol use. Patient lives alone. She does not utilize CPAP, nebulizer, O2. Patient utilizes cane as needed. FAMILY HISTORY Mother is alive with history of COPD, bronchiectasis and hypertension. Father from tongue cancer. Patient does not have any sisters. She has 2 brothers and one daughter with no major medical problems. PHYSICAL EXAMINATION Gen: This is a 55-year-old female. She is resting in bed and appears to be comfortable and in no acute distress. HEENT: Head is atraumatic, normocephalic. Pupils equal, round. Sclerae is anicteric. NECK: Supple. No JVD. No lymphadenopathy. No thyromegaly. LUNGS: Clear to auscultation. No wheezes or rhonchi. No intercostal retractions. HEART: Regular rate and rhythm. No murmur. ABDOMEN: Soft. Bowel sounds are present. No masses. Lower abdominaltenderness. EXTREMITIES: trace edema, right ankle had significant swelling redness and tenderness with significant lack of mobility and motion. NEUROLOGICAL: Patient is awake, alert and oriented x3. Cranial nerves 2 through 12 are grossly intact. ASSESSMENT AND PLAN 1. possible septic joint: Not a clear etiology patient has hardware in the area which might have chronic osteomyelitis, further testing including MRI and bone scan might be needed the meanwhile drained the site do culture and continue empiric antibiotics until the results are back. 2. mild rhabdomyolysis: Continue hydration repeat CK function next 24 hours. 3. possible adrenal insufficiency with slight reaction to the current infection and somebody has been on steroid for long time, switch patient to hydrocortisone at this point and being might be aggressive with it. 4. Hypertension. Continue verapamil 120 mg daily, losartan 100 mg daily 5. Multiple sclerosis, stable without exacerbation. Continue Flexeril 10 mg 3 times daily as needed and 10 mg at bedtime. 6. hyperglycemia: With the current dose of steroid patient will be on Accu-Chek with sliding scales coverage. 7. fall with no sign of syncope: No other injury with probably patient could not walk and stand up because of the severity of the infection and the ankle area. 8. Restless leg syndrome. Continue Requip 10 mg at bedtime. 9. Chronic anemia. continue iron supplement repeat CBC daily basis. 10. Sjogren's, stable. Continue pilocarpine 5 mg 3 times daily. 11. Generalized anxiety disorder, insomnia. Continue Ambien 10 mg at bedtime. 12. DVT prophylaxis. Heparin subcu. 13. GERD and GI prophylaxis. Protonix. CODE STATUS: Full code. Dr. Lawrence thank you very much for the consult if I can be any further help to please let me know. Past Medical History Past Medical History: Coronary Artery Disease (CAD), Chest Pain / Angina, F ibromyalgia, Musculoskeletal Disorder, Renal Disease Additional Past Medical History / Comment(s): Migraines, Shrgren syndrome, DDD, MS, fibromyalgia, Right BBB, CKD, Tarsal tunnel syndrome, History of Any Multi-Drug Resistant Organisms: ESBL Year Discovered:: 03/22/21 MDRO Source:: ESBL URINE Past Surgical History: Appendectomy, Hysterectomy, Orthopedic Surgery Additional Past Surgical History / Comment(s): right ankle, abdominal laparoscopies, Prexacral Neurectomy, Cryosurgery, Past Anesthesia/Blood Transfusion Reactions: No Reported Reaction Past Psychological History: No Psychological Hx Reported Smoking Status: Never smoker Past Alcohol Use History: None Reported Past Drug Use History: None Reported - Past Family History Father Family Medical History: AICD/Pacemaker, Congestive Heart Failure (CHF), COPD, Diabetes Mellitus, Myocardial Infarction ([place]) Additional Family Medical History / Comment(s): Father at age 83 in his eep. He has history of AICD. Mother Family Medical History: Hypertension Additional Family Medical History / Comment(s): Mother is alive at age 77 with history of hypertension and bronchiectasis. Patient has 2 brothers with no major medical problems. Patient does not have any sisters. Patient is one daughter with no major medical problems. Medications and Allergies Home Medications Medication Instructions Recorded Confirmed Type Cyclobenzaprine [Flexeril] 10 mg PO HS 09/27/17 11/17/21 History Pilocarpine HCl [Salagen] 5 mg PO TID 09/27/17 11/17/21 History rOPINIRole HCL [Requip] 10 mg PO HS 09/27/17 11/17/21 History Dextroamphetamine Sulfate 15 mg PO BID 12/20/18 11/17/21 History [Dexedrine] Ascorbic Acid [Vitamin C] 500 mg PO BID 11/25/19 11/17/21 History Cetirizine HCl 10 mg PO DAILY 03/23/21 11/17/21 History Diclofenac Sodium Gel [Voltaren 2 gm TOPICAL BID PRN 03/23/21 11/17/21 History Gel] Verapamil HCl [Verapamil ER] 120 mg PO DAILY 03/23/21 11/17/21 History Zolpidem [Ambien] 10 mg PO HS PRN 03/23/21 11/17/21 History ondansetron HCL [Zofran] 8 mg PO TID 03/23/21 11/17/21 History predniSONE 10 mg PO TID PRN 03/23/21 11/17/21 History Azilsartan Med/Chlorthalidone 1 tab PO DAILY 11/17/21 11/17/21 History [Edarbyclor 40-25 mg Tablet] Elderberry Fruit and Flower [Black 2 cap PO W/SUPPER 11/17/21 11/17/21 History Elderberry 575 mg Cap] Ergocalciferol (Vitamin D2) 1,250 mcg PO Q30D 11/17/21 11/17/21 History [Drisdol (50,000 Iu)] Famotidine 40 mg PO DAILY 11/17/21 11/17/21 History Magnesium Oxide [Mag-Ox] 400 mg PO BID 11/17/21 11/17/21 History Metoprolol Tartrate [Lopressor] 50 mg PO BID 11/17/21 11/17/21 History Zinc 50 mg PO BID 11/17/21 11/17/21 History traZODone HCL [Desyrel] 100 mg PO HS 11/17/21 11/17/21 History Allergies Allergy/AdvReac Type Severity Reaction Status Date / Time aspirin AdvReac Abdominal Verified 11/17/21 17:55 Pain Physical Exam Vitals: Vital Signs Temp Pulse Resp BP Pulse Ox 11/17/21 19:00 106 H 16 109/75 94 L 11/17/21 17:43 99.3 F 11/17/21 17:33 116 H 18 119/73 94 L 11/17/21 12:53 101.4 F H 137 H 16 146/97 97 Intake and Output 11/17/21 11/17/21 11/17/21 06:59 14:59 22:59 Other: Weight 81.647 kg Results CBC & Chem 7: 11/17/21 14:16 11/17/21 14:16 Labs: Abnormal Lab Results - Last 24 Hours (Table) 11/17/21 11/17/21 11/17/21 Range/Units 14:16 14:16 18:49 WBC 14.5 H (3.8-10.6) k/uL RBC 3.02 L (3.80-5.40) m/uL Hgb 10.2 L (11.4-16.0) gm/dL Hct 31.4 L (34.0-46.0) % MCV 104.1 H (80.0-100.0) fL Neutrophils # 12.7 H (1.3-7.7) k/uL Lymphocytes # 0.7 L (1.0-4.8) k/uL ESR 94 H (0-20) mm/hr Sodium 132 L (137-145) mmol/L Chloride 94 L (98-107) mmol/L BUN 23 H (7-17) mg/dL Creatinine 1.26 H (0.52-1.04) mg/dL Glucose 111 H (74-99) mg/dL Uric Acid 8.5 H (3.7-7.4) mg/dL AST 68 H (14-36) U/L ALT 40 H (4-34) U/L Creatine Kinase 1225 H* (30-135) U/L C-Reactive Protein 9.0 H (<1.0) mg/dL Urine Protein 1+ H (Negative) Urine Glucose (UA) 1+ H (Negative) Urine Ketones 2+ H (Negative) Urine Blood Small H (Negative) Urine Mucus Rare H (None) /hpf
[2021-11-18] MEDS: METOPROLOL TARTRATE 50 MG TAB PO SCH ×3 (00:22→21:58)
[2021-11-18] MEDS: HEPARIN SODIUM,PORCINE/PF 5,000 UNIT/0.5 ML SYRINGE SQ SCH ×3 (00:22→21:57)
[2021-11-18] MEDS: MAGNESIUM OXIDE 400 MG TAB PO SCH ×3 (00:22→21:58)
[2021-11-18] MEDS: traZODone HCL 100 MG TAB PO SCH ×2 (00:22→21:58)
[2021-11-18] MEDS: ONDANSETRON 4 MG TAB PO SCH ×4 (00:22→21:58)
[2021-11-18] MEDS: ZINC SULFATE 220 MG CAP PO SCH ×3 (00:23→21:59)
[2021-11-18] MEDS: HYDROCORTISONE SUCCINATE 100 MG/2 ML VIAL IV SCH ×3 (00:25→16:16)
[2021-11-18] MEDS: PIPERACILLIN-TAZOBACTAM 3.375 GM in SODIUM CHLORIDE 0.9% 100 ML IVPB SCH ×2 (00:25→10:26)
[2021-11-18] MEDS: DEXTROAMPHETAMINE SULFATE 15 MG PO SCH ×3 (00:25→22:00)
[2021-11-18] MEDS: MORPHINE SULFATE 4 MG/ML SYRINGE IV PRN ×3 (02:03→22:15)
[2021-11-18] MEDS: PILOCARPINE 5 MG TAB PO SCH ×4 (02:03→21:59)
[2021-11-18] MEDS: rOPINIRole HCL 4 MG TABLET PO SCH ×2 (02:03→21:59)
[2021-11-18 04:28] LABS: Glucose,Whole Blood 182 mg/dL (75-99)
[2021-11-18] MEDS: SODIUM CHLORIDE 0.9% 1,000 ML IV SCH ×4 (07:21→17:50)
[2021-11-18] MEDS: FAMOTIDINE 20 MG TAB PO SCH (07:46)
[2021-11-18] MEDS ORDERED: VANCOMYCIN 1,500 MG in SODIUM CHLORIDE 0.9% 250 ML IVPB SCH (08:00)
[2021-11-18] MEDS ORDERED: LACTATED RINGERS 1,000 ML IV ONE (08:05)
[2021-11-18] MEDS ORDERED: fentaNYL (PF) 50 MCG/ML 2 ML AMP ONE (08:06)
[2021-11-18] MEDS ORDERED: PHENYLEPHRINE-0.9% NACL SYG 1,000 MCG/10 ML SYRINGE ONE (08:06)
[2021-11-18] MEDS ORDERED: PROPOFOL 10 MG/ML 20 ML VIAL IV ONE (08:06)
[2021-11-18] MEDS ORDERED: SUCCINYLCHOLINE CHLORIDE 100 MG/5 ML SYR IV ONE (08:06)
[2021-11-18] MEDS ORDERED: MIDAZOLAM 2 MG/2 ML VIAL ONE (08:06)
[2021-11-18] MEDS ORDERED: LIDOCAINE 2% INJ 20 MG/ML (2 ML VIAL) ONE (08:06)
[2021-11-18] MEDS ORDERED: BUPIVACAIN-EPI 0.5%-1:200,000 30 ML VIAL SQ ONE ×2 (08:29→09:01)
[2021-11-18] MEDS: LORATADINE 10 MG TAB PO SCH (10:27)
[2021-11-18] MEDS: ASCORBIC ACID 500 MG TAB PO SCH ×2 (10:27→22:04)
--- NOTE | 2021-11-18 10:36 | P.PN ---
Subjective Progress Note Date: 11/18/21 HISTORY OF PRESENT ILLNESS This is a 55-year-old female patient of Dr. Pak with past medical history of fibromyalgia, Sjogren syndrome, degenerative disc disease, MS, migraine headaches. patient presented to the emergency department at [facility] with complaint of severe pain in the right ankle area since Monday evening, patient did not answer her phone call today the family found her on the floor which patient not quite sure how long was down on the floor for does not remember the circumstances well did not pass out. EMS ended up bringing a Chin to the emergency department at [facility] where was seen and evaluated found to have significantly and large swelling tender and hot joint at the time. Ended up going for x-ray showed hardware of the fibia of right sidewith significant reactive osteomyelitis around the hardware with significant swelling and change in the joint. With other testing included elevated white blood cell, sed rate 94, CK was 1225 and C-reactive protein of 9.0. COVID-19 and influenza were negative. With above problem patient has high suspicion for septic joint, was started on IV vancomycin and Zosyn patient be seen infectious disease and orthopedic might drained the joint at this point for culture and management. 11/18: Patient went to the OR today for I&D of the right ankle with Dr. Lawrence. Patient only has IV access in her right breast and midline will be ordered. Patient has been afebrile, heart rate 94, blood pressure 138/81, pulse ox 91-95% on 2 L nasal cannula. Right lower extremity ultrasound negative for DVT. Repeat creatinine 1.08. Synovial fluid was cloudy, RBCs 53,500, nucleated cells 262,500, probably nuclear 79%, mononuclear 21%. REVIEW OF SYSTEMS Constitutional: Reports fever, reports chills, no night sweats. No weight change. No weakness, fatigue or lethargy. No daytime sleepiness. EENT: No headache. No blurred vision or double vision, no loss of vision. No loss of Hearing, no ringing in the ears, no dizziness. No nasal drainage or congestion. No epistaxis. No sore throat. Lungs: No shortness of breath, cough, no sputum production. No wheezing. Cardiovascular: No chest pain, no lower extremity edema. No palpitations. No paroxysmal nocturnal dyspnea. No orthopnea. No lightheadedness or dizziness. No syncopal episodes. Abdominal: Reports lower abdominal pain. No nausea, vomiting. Reports diarrhea. No constipation. No bloody or tarry stools.. No loss of appetite. Genitourinary: No dysuria, increased frequency, urgency. No urinary retention. Musculoskeletal: No myalgias. No muscle weakness, reported gait dysfunction, no frequent falls. No back pain. No neck pain. right foot pain and discomfort swelling redness been able to put pressure weight on it. Integumentary: No wounds, no lesions. No rash or pruritus. No unusual b ruising. No change in hair or nails. Neurologic: No aphasia. No facial droop. No change in mentation. No head injury. No headache. No paralysis. No paresthesia. Psychiatric: No depression. No anxiety. No mood swings. Endocrine: No abnormal blood sugars. No weight change. No excessive sweating o r thirst. No cold intolerance. PHYSICAL EXAMINATION Gen: This is a 55-year-old female. She is resting in bed and appears to be comfortable and in no acute distress. HEENT: Head is atraumatic, normocephalic. Pupils equal, round. Sclerae is anicteric. NECK: Supple. No JVD. No lymphadenopathy. No thyromegaly. LUNGS: Clear to auscultation. No wheezes or rhonchi. No intercostal retractions. HEART: Regular rate and rhythm. No murmur. ABDOMEN: Soft. Bowel sounds are present. No masses. Lower abdominaltenderness. EXTREMITIES: trace edema, right ankle had significant swelling redness and tenderness with significant lack of mobility and motion. NEUROLOGICAL: Patient is awake, alert and oriented x3. Cranial nerves 2 through 12 are grossly intact. ASSESSMENT AND PLAN 1. possible septic joint: Not a clear etiology patient has hardware in the area which might have chronic osteomyelitis, status post I&D. Blood culture showing gram-positive cocci. Patient was on vancomycin. Midline ordered. 2. mild rhabdomyolysis: Continue hydration repeat CK function next 24 hours. 3. possible adrenal insufficiency with slight reaction to the current infection and somebody has been on steroid for long time, switch patient to hydrocortisone at this point and being might be aggressive with it. 4. Hypertension. Continue verapamil 120 mg daily, losartan 100 mg daily 5. Multiple sclerosis, stable without exacerbation. Continue Flexeril 10 mg 3 times daily as needed and 10 mg at bedtime. 6. hyperglycemia: With the current dose of steroid patient will be on Accu-Chek with sliding scales coverage. 7. fall with no sign of syncope: No other injury with probably patient could not walk and stand up because of the severity of the infection and the ankle area. 8. Restless leg syndrome. Continue Requip 10 mg at bedtime. 9. Chronic anemia. continue iron supplement repeat CBC daily basis. 10. Sjogren's, stable. Continue pilocarpine 5 mg 3 times daily. 11. Generalized anxiety disorder, insomnia. Continue Ambien 10 mg at bedtime. 12. DVT prophylaxis. Heparin subcu. 13. GERD and GI prophylaxis. Protonix. CODE STATUS: Full code. Dr. Lawrence thank you very much for the consult if I can be any further help to please let me know. DISCHARGE PLAN TBD Impression and plan of care have been directed as dictated by the signing physician. Cici Chatman nurse practitioner acting as scribe for signing physician. Objective - Vital Signs Vital signs: Vital Signs Temp 98.5 F 11/18/21 07:05 Pulse 100 11/18/21 07:24 Resp 18 11/18/21 07:05 BP 101/66 11/18/21 07:05 Pulse Ox 93 L 11/18/21 07:24 Intake & Output 11/17/21 11/18/21 11/18/21 18:59 06:59 18:59 Weight 81.647 kg 81.647 kg - Labs CBC & Chem 7: 11/17/21 14:16 11/18/21 07:12 Labs: Abnormal Lab Results - Last 24 Hours (Table) 11/17/21 11/17/21 11/17/21 Range/Units 14:16 14:16 18:49 WBC 14.5 H (3.8-10.6) k/uL RBC 3.02 L (3.80-5.40) m/uL Hgb 10.2 L (11.4-16.0) gm/dL Hct 31.4 L (34.0-46.0) % MCV 104.1 H (80.0-100.0) fL Neutrophils # 12.7 H (1.3-7.7) k/uL Lymphocytes # 0.7 L (1.0-4.8) k/uL ESR 94 H (0-20) mm/hr Sodium 132 L (137-145) mmol/L Chloride 94 L (98-107) mmol/L BUN 23 H (7-17) mg/dL Creatinine 1.26 H (0.52-1.04) mg/dL Glucose 111 H (74-99) mg/dL POC Glucose (mg/dL) (75-99) mg/dL Uric Acid 8.5 H (3.7-7.4) mg/dL AST 68 H (14-36) U/L ALT 40 H (4-34) U/L Creatine Kinase 1225 H* (30-135) U/L C-Reactive Protein 9.0 H (<1.0) mg/dL Urine Protein 1+ H (Negative) Urine Glucose (UA) 1+ H (Negative) Urine Ketones 2+ H (Negative) Urine Blood Small H (Negative) Urine Mucus Rare H (None) /hpf 11/18/21 Range/Units 04:27 WBC (3.8-10.6) k/uL RBC (3.80-5.40) m/uL Hgb (11.4-16.0) gm/dL Hct (34.0-46.0) % MCV (80.0-100.0) fL Neutrophils # (1.3-7.7) k/uL Lymphocytes # (1.0-4.8) k/uL ESR (0-20) mm/hr Sodium (137-145) mmol/L Chloride (98-107) mmol/L BUN (7-17) mg/dL Creatinine (0.52-1.04) mg/dL Glucose (74-99) mg/dL POC Glucose (mg/dL) 182 H (75-99) mg/dL Uric Acid (3.7-7.4) mg/dL AST (14-36) U/L ALT (4-34) U/L Creatine Kinase (30-135) U/L C-Reactive Protein (<1.0) mg/dL Urine Protein (Negative) Urine Glucose (UA) (Negative) Urine Ketones (Negative) Urine Blood (Negative) Urine Mucus (None) /hpf Microbiology - Last 24 Hours (Table) 11/17/21 21:10 Gram Stain - Preliminary Ankle - Right Wound Culture - Preliminary
--- NOTE | 2021-11-18 12:41 | CDI ---
Documentation Clarification Form Date: 11/18/2021 12:16:43 PM From: Roxy Bernard RN CCDS Admit Date: 11/17/2021 04:53:00 PM Patient Name: Sari Irizarry Visit Number: [id number] Discharge Date: ATTENTION: The Clinical Documentation Specialists (CDI) and [facility] Coding Staff appreciate your assistance in clarifying documentation. Please respond to the clarification below the line at the bottom and electronically sign. The CDI & [facility] Coding staff will review the response and follow-up if needed. Please note: Queries are made part of the Legal Health Record. If you have any questions, please contact the author of this message via ITS. Dr. Junior Lacy The patient presented with the following clinical indicators. Additional clarification regarding the etiology/cause of the clinical indicators is requested. History/Risk Factors: 55-year-old female presents to the ED via EMS after being found home on the floor for unknown amount of time with right ankle pain. The pain is severe when trying to ambulate. Medical History: CAD, MS, CKD, last positive culture/infection 03/22/21 and removal of hardware. 11/17, H&P. Clinical Indicators: Medicine Consult, 11/17: Possible septic joint WBC: 11/17 14.5 Neutrophils: 11/17 12.7 Blood cultures: 11/17 Gram Positive Cocci in clusters / Staphylococcus aureus Ankle Joint culture: 11/17 Preliminary Presumptive Staph Vitals signs: 11/17 B/P 146/97; HR 137; Temp 101.4F Oral; RR 16; SpO2 97% ra Treatment: Antibiotics: 11/17 Zoysn 3.375 gm IVPB x 1; 11/18 current Zosyn IVPB Q8HR; 11/17 Vancomycin 1,500mg IVPB x 1; 11/18 current Vancomycin 1,500mg IVPB Q16HR IV Bolus:11/17 0.9ns 500cc bolus x 2. In your professional opinion, please clarify if these findings signify one of the following conditions: [ xx ] Sepsis POA related to hardware [ ] Sepsis POA not related to hardware, please specify cause [ ] Sepsis ruled out [ ] Other, please specify [ ] Unable to determine SIRS Criteria: 2 or more of the following may indicate SIRS -Temperature < 96.8F (36C) or > 101.0F (38.3C) -Heart Rate > 90 bpm -Respiratory Rate > 20 breaths/min or PaCO2 < 32 mmHg -White Blood Cell Count > 12,000 or < 4,000 cells/mm3 or > 10% bands (Template Last Reviewed: August 2020) MTDD
--- NOTE | 2021-11-18 13:31 | P.OP ---
Date of Procedure: 11/18/21 Procedure(s) Performed: PREOPERATIVE DIAGNOSES: 1. Right ankle joint sepsis POSTOPERATIVE DIAGNOSES: 1. Right ankle joint sepsis PROCEDURES PERFORMED: 1. Right ankle joint open irrigation and debridement (sharp debridement using knife, with removal of pus, devitalized soft tissue, and intra-articular presumably infected bone fragments; 2. Application of negative pressure wound dressing (wound VAC) to anterior wound. 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 Chen with subsequent infection of the hardware on the medial side in 2020. The medial hardware was removed at that time. Lateral hardware was kept in place. Over the past 3-4 days she has been having increasing pain, redness, swelling, and symptomatology consistent with infected ankle joint. I aspirated the ankle last night in the emergency room and gross palm was extracted. Cultures were sent at that time and her most recent blood culture showed gram-positive cocci. I have advised her about operative irrigation and debridement of the ankle joint with a likely expectation that we are dealing with an underlying osteomyelitis as well. She wishes to proceed with operative debridement today. I have discussed the risks and potential complications of the surgery and of her condition in general as being inclusive of but not limited to bleeding, infection, scarring, discomfort, blood vessel and/or nerve damage, need for further surgery, osteomyelitis requiring extensive further debridement, possible need for amputation, instability, and other risks. She wishes to proceed and has signed a consent form. PROCEDURE: After appropriate consent was obtained, the patient was taken to the operating room and placed supine on the operating table. General anesthesia was initiated. The right lower extremity was prepped in the usual aseptic fashion using ChloraPrep. time out was called, confirming patient identity, side, procedure, and administration of antibiotics on the floor. No new antibiotics were given during the operation. Limb was gently exsanguinated with an Esmarch bandage and the tourniquet was inflated to275 mmHg. Incision was then created midline over theanterior ankle joint. Incision was approximately 8 cm in size. It was carried down sharply through skin and then bluntly through subcutaneous tissues down to deep fascia. Deep fascia was split in line with the incision revealing the underlying extensor retinaculum which was also split in line with the incision. Dissection then proceeded on the extensor hallucis longus, creating a exposure between the EHL and EDL. Neurovascular bundle was carefully identified and retracted medially. Joint was then penetrated and pus was exposed. further subperiosteal dissection was performed medially and laterally to further the exposure. Copious purulent material was able to be extracted from the ankle joint and 2 cultures were taken at this time. Anterior loose debris which was composed of soft bone was removed and sent to pathology for analysis. The interior of the joint was preliminarily washed with 1 L of pulsatile saline. A small amount of Hibiclens was mixed in a beak or and placed in the wound as a wound soak for approximate 1 minute and then rinsed thoroughly using pulse lavage. The interior of the joint was inspected carefully. 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 Further pulsatile lavage was performed using saline solution, for a total of 4 L of saline.Next, tourniquet was released and hemostasis was obtained carefully using electrocautery. A small wound VAC was applied into the wound and secured. It was tested and showed no leak. An Peter wrap was then further applied over the dressing to secure the wound VAC tubing. She tolerated the procedure well there were no complications and less than 10 cc of blood loss.
[2021-11-18] MEDS: LOSARTAN 25 MG TAB PO SCH (15:32)
[2021-11-18] MEDS: VERAPAMIL SR 120 MG TABLET.ER PO SCH (15:32)
[2021-11-18] MEDS: CHLORTHALIDONE 25 MG TAB PO SCH (15:32)
[2021-11-18] MEDS: CYCLOBENZAPRINE 10 MG TAB PO SCH (21:58)
[2021-11-19] MEDS: HYDROCORTISONE SUCCINATE 100 MG/2 ML VIAL IV SCH ×3 (00:41→16:02)
[2021-11-19] MEDS: SODIUM CHLORIDE 0.9% 1,000 ML IV SCH ×2 (06:19→12:11)
[2021-11-19 06:54] LABS: ALT 28 U/L (4-34); AST 32 U/L (14-36); African American GFR (CKD) >90 (>60 ml/min/1.73 sqM); Albumin 2.6 g/dL (3.5-5.0); Alkaline Phosphatase 79 U/L (38-126); Anion Gap 7 mmol/L; Blood Urea Nitrogen 19 mg/dL (7-17); Calcium 7.7 mg/dL (8.4-10.2); Carbon Dioxide 28 mmol/L (22-30); Chloride 100 mmol/L (98-107); Creatine Kinase 239 U/L (30-135); Globulin 2.5 g/dL; Glucose 128 mg/dL (74-99); Non-African American GFR(CKD) 79 (>60 ml/min/1.73 sqM); Sodium 135 mmol/L (137-145); Total Bilirubin 0.4 mg/dL (0.2-1.3); Total Protein 5.1 g/dL (6.3-8.2)
[2021-11-19 07:23] LABS: C Reactive Protein 22.4 mg/dL (<1.0); Potassium 2.5 mmol/L (3.5-5.1)
--- NOTE | 2021-11-19 08:35 | P.CONS ---
History of Present Illness - Reason for Consult Consult date: 11/25/21 Right ankle septic arthritis Requesting physician: Niesha Oseguera - Chief Complaint Right ankle pain x few days - History of Present Illness Patient is a 56-year-old female with a past medical he significant for fibromyalgia Sjogren's syndrome presenting to the hospital recently with pain to the right ankle area that apparently has been going on since Monday evening patient denies having any history of any trauma patient pain to the right ankle was sharp almost 10 out of 10 in severity and no radiation patient on arrival to the ER did have a fever of 101.4 F patient was tachycardic at one-point did have white count of 14.5 being medicated was mildly elevated liver enzymes and mild elevated patient did have a aspirate of the right ankle which was cloudy did have [id number] nucleated cells patient has been started on vancomycin and Zosyn infectious disease was consulted for further management of antibiotic therapy with concern for right ankle septic arthritis patient did have x-ray of the ankle which did shows postoperative changes with plate fixation of the distal fibula soft tissue swelling about the ankle and moderate degenerative narrowing no bony destruction Review of Systems Positive point has been mentioned in the HPI rest of the systems are negative Past Medical History Past Medical History: Coronary Artery Disease (CAD), Chest Pain / Angina, Fibromyalgia, Musculoskeletal Disorder, Renal Disease Additional Past Medical History / Comment(s): Migraines, Shrgren syndrome, DDD, MS, fibromyalgia, Right BBB, CKD, Tarsal tunnel syndrome, vertigo History of Any Multi-Drug Resistant Organisms: ESBL Year Discovered:: 03/22/21 MDRO Source:: ESBL URINE Past Surgical History: Appendectomy, Hysterectomy, Orthopedic Surgery Additional Past Surgical History / Comment(s): right ankle, abdominal laparoscopies, Prexacral Neurectomy, Cryosurgery, Past Anesthesia/Blood Transfusion Reactions: No Reported Reaction Past Psychological History: No Psychological Hx Reported Additional Psychological History / Comment(s): Pt resides alone. She uses a cane to ambulate. Smoking Status: Never smoker Past Alcohol Use History: None Reported Additional Past Alcohol Use History / Comment(s): Patient has been a nonsmoker, no marijuana or illicit drug use, no alcohol use. Patient is single. Past Drug Use History: None Reported - Past Family History Father Family Medical History: AICD/Pacemaker, Congestive Heart Failure (CHF), COPD, Diabetes Mellitus, Myocardial Infarction ([place]) Additional Family Medical History / Comment(s): Father at age 83 in his sleep. He has history of AICD. Mother Family Medical History: Hypertension Additional Family Medical History / Comment(s): Mother is alive at age 77 with history of hypertension and bronchiectasis. Patient has 2 brothers with no major medical problems. Patient does not have any sisters. Patient is one daughter with no major medical problems. Medications and Allergies Home Medications Medication Instructions Recorded Confirmed Type Cyclobenzaprine [Flexeril] 10 mg PO HS 09/27/17 11/17/21 History Pilocarpine HCl [Salagen] 5 mg PO TID 09/27/17 11/17/21 History rOPINIRole HCL [Requip] 10 mg PO HS 09/27/17 11/17/21 History Dextroamphetamine Sulfate 15 mg PO BID 12/20/18 11/17/21 History [Dexedrine] Ascorbic Acid [Vitamin C] 500 mg PO BID 11/25/19 11/17/21 History Cetirizine HCl 10 mg PO DAILY 03/23/21 11/17/21 History Diclofenac Sodium Gel [Voltaren 2 gm TOPICAL BID PRN 03/23/21 11/17/21 History Gel] Verapamil HCl [Verapamil ER] 120 mg PO DAILY 03/23/21 11/17/21 History Zolpidem [Ambien] 10 mg PO HS PRN 03/23/21 11/17/21 History ondansetron HCL [Zofran] 8 mg PO TID 03/23/21 11/17/21 History predniSONE 10 mg PO TID PRN 03/23/21 11/17/21 History Azilsartan Med/Chlorthalidone 1 tab PO DAILY 11/17/21 11/17/21 History [Edarbyclor 40-25 mg Tablet] Elderberry Fruit and Flower [Black 2 cap PO W/SUPPER 11/17/21 11/17/21 History Elderberry 575 mg Cap] Ergocalciferol (Vitamin D2) 1,250 mcg PO Q30D 11/17/21 11/17/21 History [Drisdol (50,000 Iu)] Famotidine 40 mg PO DAILY 11/17/21 11/17/21 History Magnesium Oxide [Mag-Ox] 400 mg PO BID 11/17/21 11/17/21 History Metoprolol Tartrate [Lopressor] 50 mg PO BID 11/17/21 11/17/21 History Zinc 50 mg PO BID 11/17/21 11/17/21 History traZODone HCL [Desyrel] 100 mg PO HS 11/17/21 11/17/21 History Allergies Allergy/AdvReac Type Severity Reaction Status Date / Time aspirin AdvReac Abdominal Verified 11/18/21 07:44 Pain Physical Exam Vitals: Vital Signs Temp Pulse Pulse Pulse Resp BP BP 11/18/21 09:30 96 16 132/66 11/18/21 09:14 98.0 F 104 H 16 120/83 11/18/21 07:52 97.5 F L 95 18 11/18/21 07:24 100 11/18/21 07:05 98.5 F 92 18 101/66 11/18/21 06:10 98.8 F 99 16 113/74 11/18/21 01:55 99.3 F 115 H 17 126/79 11/18/21 00:33 98 F 108 H 16 111/71 11/17/21 20:30 101 H 17 121/77 11/17/21 19:00 106 H 16 109/75 11/17/21 17:43 99.3 F 11/17/21 17:33 116 H 18 119/73 11/17/21 12:53 101.4 F H 137 H 16 146/97 BP Pulse Ox 11/18/21 09:30 98 11/18/21 09:14 99 11/18/21 07:52 112/68 93 L 11/18/21 07:24 93 L 11/18/21 07:05 95 11/18/21 06:10 96 11/18/21 01:55 91 L 11/18/21 00:33 92 L 11/17/21 20:30 97 11/17/21 19:00 94 L 11/17/21 17:43 11/17/21 17:33 94 L 11/17/21 12:53 97 Intake and Output 11/17/21 11/18/21 11/18/21 22:59 06:59 14:59 Intake Total 400 Output Total 5 Balance 395 Intake: IV 400 Output: Estimated Blood Loss 5 Other: Weight 81.647 kg 81.647 kg GENERAL DESCRIPTION: Middle-aged female lying in bed, no distress. No tachypnea or accessory muscle of respiration use. HEENT: Shows Pallor , no scleral icterus. Oral mucous membrane is dry. No pharyngeal erythema or thrush NECK: Trachea central, no thyromegaly. LUNGS: Unlabored breathing. Clear to auscultation anteriorly. No wheeze or crackle. HEART: S1, S2, regular rate and rhythm. No loud murmur ABDOMEN: Soft, no tenderness , guarding or rigidity, no organomegaly EXTREMITIES: Right ankle is currently dressed no drainage on the dressing SKIN: No rash, no masses palpable. NEUROLOGICAL: The patient is awake, alert, oriented x3, mood and affect normal. Results CBC & Chem 7: 11/17/21 14:16 11/19/21 06:16 Labs: Abnormal Lab Results - Last 24 Hours (Table) 11/17/21 11/17/21 11/17/21 Range/Units 14:16 14:16 18:49 WBC 14.5 H (3.8-10.6) k/uL RBC 3.02 L (3.80-5.40) m/uL Hgb 10.2 L (11.4-16.0) gm/dL Hct 31.4 L (34.0-46.0) % MCV 104.1 H (80.0-100.0) fL Neutrophils # 12.7 H (1.3-7.7) k/uL Lymphocytes # 0.7 L (1.0-4.8) k/uL ESR 94 H (0-20) mm/hr Sodium 132 L (137-145) mmol/L Chloride 94 L (98-107) mmol/L BUN 23 H (7-17) mg/dL Creatinine 1.26 H (0.52-1.04) mg/dL Glucose 111 H (74-99) mg/dL POC Glucose (mg/dL) (75-99) mg/dL Uric Acid 8.5 H (3.7-7.4) mg/dL AST 68 H (14-36) U/L ALT 40 H (4-34) U/L Creatine Kinase 1225 H* (30-135) U/L C-Reactive Protein 9.0 H (<1.0) mg/dL Urine Protein 1+ H (Negative) Urine Glucose (UA) 1+ H (Negative) Urine Ketones 2+ H (Negative) Urine Blood Small H (Negative) Urine Mucus Rare H (None) /hpf 11/18/21 11/18/21 Range/Units 04:27 07:12 WBC (3.8-10.6) k/uL RBC (3.80-5.40) m/uL Hgb (11.4-16.0) gm/dL Hct (34.0-46.0) % MCV (80.0-100.0) fL Neutrophils # (1.3-7.7) k/uL Lymphocytes # (1.0-4.8) k/uL ESR (0-20) mm/hr Sodium (137-145) mmol/L Chloride (98-107) mmol/L BUN (7-17) mg/dL Creatinine 1.08 H (0.52-1.04) mg/dL Glucose (74-99) mg/dL POC Glucose (mg/dL) 182 H (75-99) mg/dL Uric Acid (3.7-7.4) mg/dL AST (14-36) U/L ALT (4-34) U/L Creatine Kinase (30-135) U/L C-Reactive Protein (<1.0) mg/dL Urine Protein (Negative) Urine Glucose (UA) (Negative) Urine Ketones (Negative) Urine Blood (Negative) Urine Mucus (None) /hpf Microbiology - Last 24 Hours (Table) 11/17/21 14:16 Blood Culture Gram Stain - Preliminary Blood 11/17/21 14:16 Blood Culture - Final Blood 11/17/21 21:10 Gram Stain - Preliminary Ankle - Right Wound Culture - Preliminary Assessment and Plan (1) Septic arthritis of right ankle Current Visit: Yes Status: Acute Code(s): M00.9 - PYOGENIC ARTHRITIS, UNSPECIFIED SNOMED Code(s): 5598514292077287 Plan: 1patient presented hospital with sepsis in this patient who did have a fever tachycardia elevated white count with significant pain to the right ankle area with associated swelling and a cloudy fluid likely source is the right ankle septic arthritis and likely from gram-positive skin cleopatra such as staph aureus. 2patient with a positive blood culture with gram-positive cocci likely source is the right ankle septic arthritis. 3vancomycin pharmacy to dose target trough of 15 while watching kidney function and vancomycin trough closely. 4discontinue Zosyn. 5blood cultures will be repeated to document clearance of bacteremia. 6/patient will need a PICC line once she cleared her bacteremia for outpatient IV antibiotics We will follow on clinical condition and cultures to further adjust medication if needed Thank you for this consultation will follow this patient along with you Time with Patient: Greater than 30
[2021-11-19] MEDS: HEPARIN SODIUM,PORCINE/PF 5,000 UNIT/0.5 ML SYRINGE SQ SCH ×2 (09:16→20:00)
[2021-11-19] MEDS: LOSARTAN 25 MG TAB PO SCH (09:19)
[2021-11-19] MEDS: CHLORTHALIDONE 25 MG TAB PO SCH (09:19)
[2021-11-19] MEDS: VERAPAMIL SR 120 MG TABLET.ER PO SCH (09:20)
[2021-11-19] MEDS: LORATADINE 10 MG TAB PO SCH (09:21)
[2021-11-19] MEDS: FAMOTIDINE 20 MG TAB PO SCH (09:21)
[2021-11-19] MEDS: ONDANSETRON 4 MG TAB PO SCH ×3 (09:21→21:13)
[2021-11-19] MEDS: ZINC SULFATE 220 MG CAP PO SCH ×2 (09:22→20:00)
[2021-11-19] MEDS: METOPROLOL TARTRATE 50 MG TAB PO SCH ×2 (09:22→20:00)
[2021-11-19] MEDS: ASCORBIC ACID 500 MG TAB PO SCH ×2 (09:22→20:00)
[2021-11-19] MEDS: MAGNESIUM OXIDE 400 MG TAB PO SCH ×2 (09:22→20:00)
[2021-11-19] MEDS: DEXTROAMPHETAMINE SULFATE 15 MG PO SCH ×2 (09:23→20:04)
[2021-11-19] MEDS: PILOCARPINE 5 MG TAB PO SCH ×3 (09:23→20:02)
[2021-11-19 09:25] LABS: HCT 22.7 % (37.2-46.3); HGB 7.1 g/dL (12.0-15.0); MCH 33.2 pg (27.0-32.0); MCHC 31.3 g/dL (32.0-37.0); MCV 106.1 fL (80.0-97.0); Mean Platelet Volume 9.2 fL (9.5-12.2); NRBC Per 100 WBC 0 /100 WBCS (0.0-0.0); Platelet Count 266 X 10*3/uL (140-440); RBC 2.14 X 10*6/uL (4.10-5.20); RDW 14.1 % (11.5-14.5); WBC 9.48 X 10*3/uL (4.50-10.00)
--- NOTE | 2021-11-19 10:18 | P.PN ---
Subjective Progress Note Date: 11/19/21 This is a 55-year-old female who is status post irrigation and debridement of the right ankle joint and application of negative pressure wound VAC by Dr. Lawrence. This is postoperative day #1 and patient is seen and evaluated at bedside today. Patient states that she is doing well and does not complain of any pain or new complaints. Objective - Vital Signs Vital signs: Vital Signs Temp 97.8 F 11/19/21 08:00 Pulse 81 11/19/21 08:00 Resp 18 11/19/21 08:00 BP 90/53 11/19/21 08:00 Pulse Ox 99 11/19/21 08:00 Intake & Output 11/18/21 11/19/21 11/19/21 18:59 06:59 18:59 Intake Total 1750 Output Total 5 Balance 1745 Weight 81.647 kg Intake: IV 1400 Sodium Chloride 0.9% 1, 900 000 ml @ 75 mls/hr IV . [id number] [facility] Rx#:[id number] Oral 350 Output: Estimated Blood Loss 5 Other: Voiding Method Bedpan # Voids 1 1 # Bowel Movements 0 - Exam On exam dressing is clean, dry and intact with wound VAC present. Sensation intact. The right lower extremity is warm and well perfused. - Labs CBC & Chem 7: 11/19/21 06:16 11/19/21 08:18 Labs: Abnormal Lab Results - Last 24 Hours (Table) 11/19/21 11/19/21 11/19/21 Range/Units 06:16 06:16 08:18 RBC 2.14 L (4.10-5.20) X 10*6/uL Hgb 7.1 L (12.0-15.0) g/dL Hct 22.7 L (37.2-46.3) % MCV 106.1 H (80.0-97.0) fL MCH 33.2 H (27.0-32.0) pg MCHC 31.3 L (32.0-37.0) g/dL MPV 9.2 L (9.5-12.2) fL Sodium 135 L (137-145) mmol/L Potassium 2.5 L* 2.8 L (3.5-5.1) mmol/L BUN 19 H (7-17) mg/dL Glucose 128 H (74-99) mg/dL Calcium 7.7 L (8.4-10.2) mg/dL Creatine Kinase 239 H (30-135) U/L C-Reactive Protein 22.4 H (<1.0) mg/dL Total Protein 5.1 L (6.3-8.2) g/dL Albumin 2.6 L (3.5-5.0) g/dL Microbiology - Last 24 Hours (Table) 11/18/21 09:10 Gram Stain - Preliminary Knee - Right Wound Culture - Preliminary 11/17/21 21:10 Gram Stain - Preliminary Ankle - Right Wound Culture - Preliminary Presumptive Staph aureus 11/17/21 14:16 Blood Culture Gram Stain - Preliminary Blood Blood Culture - Preliminary Staphylococcus aureus 11/18/21 09:10 Anaerobic Culture - Preliminary Knee - Right 11/18/21 09:10 Fungal Culture - Preliminary Knee - Right 11/17/21 14:10 Blood Culture Gram Stain - Preliminary Blood 11/17/21 14:10 Blood Culture - Final Blood 11/17/21 14:16 Blood Culture - Final Blood Assessment and Plan Assessment: Right ankle joint sepsis Plan: 1. Blood cultures are positive for MSSA. Wound cultures are pending. 2. IV antibiotics and wound care per infectious disease. 3. Patient is awaiting PICC line placement once blood cultures are negative.
--- NOTE | 2021-11-19 11:49 | P.PN ---
Subjective Progress Note Date: 11/19/21 HISTORY OF PRESENT ILLNESS This is a 55-year-old female patient of Dr. Pak with past medical history of fibromyalgia, Sjogren syndrome, degenerative disc disease, MS, migraine headaches. patient presented to the emergency department at [facility] with complaint of severe pain in the right ankle area since Monday evening, patient did not answer her phone call today the family found her on the floor which patient not quite sure how long was down on the floor for does not remember the circumstances well did not pass out. EMS ended up bringing a Chin to the emergency department at [facility] where was seen and evaluated found to have significantly and large swelling tender and hot joint at the time. Ended up going for x-ray showed hardware of the fibia of right sidewith significant reactive osteomyelitis around the hardware with significant swelling and change in the joint. With other testing included elevated white blood cell, sed rate 94, CK was 1225 and C-reactive protein of 9.0. COVID-19 and influenza were negative. With above problem patient has high suspicion for septic joint, was started on IV vancomycin and Zosyn patient be seen infectious disease and orthopedic might drained the joint at this point for culture and management. 11/18: Patient went to the OR today for I&D of the right ankle with Dr. Lawrence. Patient only has IV access in her right breast and midline will be ordered. Patient has been afebrile, heart rate 94, blood pressure 138/81, pulse ox 91-95% on 2 L nasal cannula. Right lower extremity ultrasound negative for DVT. Repeat creatinine 1.08. Synovial fluid was cloudy, RBCs 53,500, nucleated cells 262,500, probably nuclear 79%, mononuclear 21%. 11/19: Yesterday, patient underwent open irrigation and debridement with removal of pus, devitalized soft tissue and intra-articular presumably infected bone fra gments. Wound VAC was applied. Patient is to be seen by Dr. Mendez. She is currently on IV antibiotics with Kefzol. Midline was placed yesterday as patient only had IV access in her breast. Blood culture and ankle cultures are showing presumptive staph aureus. She has been afebrile, heart rate 81, blood pressure 90/53, pulse ox 99% on 2 L nasal cannula. Repeat blood work reveals WBC 9.4, hemoglobin 7.1, platelet count 266. Potassium 2.8 and will be replaced. Sodium 135, BUN 19 and creatinine 0.84. Blood sugar 128. Calcium 7.7. Liver function tests were normal. CK 239, C-reactive protein 22.4. Albumin 2.6. Patient shows no sign of active bleeding. Repeat blood work ordered for tomorrow. Daughter Grace has been updated over the phone. Patient plans to return home with the help of her mother and her daughter to do IV antibiotics at home. client account manager is following. Anticipate probable discharge on Monday. REVIEW OF SYSTEMS Constitutional: Reports fever, reports chills, no night sweats. No weight change. No weakness, fatigue or lethargy. No daytime sleepiness. EENT: No headache. No blurred vision or double vision, no loss of vision. No loss of Hearing, no ringing in the ears, no dizziness. No nasal drainage or congestion. No epistaxis. No sore throat. Lungs: No shortness of breath, cough, no sputum production. No wheezing. Cardiovascular: No chest pain, no lower extremity edema. No palpitations. No paroxysmal nocturnal dyspnea. No orthopnea. No lightheadedness or dizziness. No syncopal episodes. Abdominal: Denies lower abdominal pain. No nausea, vomiting. Reports diarrhea. No constipation. No bloody or tarry stools.. No loss of appetite. Genitourinary: No dysuria, increased frequency, urgency. No urinary retention. Musculoskeletal: No myalgias. No muscle weakness, reported gait dysfunction, no frequent falls. No back pain. No neck pain. right foot pain and discomfort with wound VAC. Integumentary: No wounds, no lesions. No rash or pruritus. No unusual bruising. No change in hair or nails. Neurologic: No aphasia. No facial droop. No change in mentation. No head injury. No headache. No paralysis. No paresthesia. Psychiatric: No depression. No anxiety. No mood swings. Endocrine: No abnormal blood sugars. No weight change. No excessive sweating or thirst. No cold intolerance. PHYSICAL EXAMINATION Gen: This is a 55-year-old female. She is resting in bed and appears to be comfortable and in no acute distress. HEENT: Head is atraumatic, normocephalic. Pupils equal, round. Sclerae is anicteric. NECK: Supple. No JVD. No lymphadenopathy. No thyromegaly. LUNGS: Clear to auscultation. No wheezes or rhonchi. No intercostal retractions. HEART: Regular rate and rhythm. No murmur. ABDOMEN: Soft. Bowel sounds are present. No masses. Lower abdominaltenderness. EXTREMITIES: trace edema, right ankle wound with wound VAC in place. NEUROLOGICAL: Patient is awake, alert and oriented x3. Cranial nerves 2 through 12 are grossly intact. ASSESSMENT AND PLAN 1. Septic joint and osteoarthritis with wound culture is presumptive for staph aureus. Patient is currently on Kefzol managed by Dr. Mendez. Blood cultures also positive. Patient has midline in place for IV access. 2. mild rhabdomyolysis, resolving. 3. possible adrenal insufficiency with slight reaction to the current infection and somebody has been on steroid for long time, switch patient to hydrocortisone at this point and being might be aggressive with it. 4. Hypertension. Continue verapamil 120 mg daily, losartan 100 mg daily 5. Multiple sclerosis, stable without exacerbation. Continue Flexeril 10 mg 3 times daily as needed and 10 mg at bedtime. 6. hyperglycemia: With the current dose of steroid patient will be on Accu-Chek with sliding scales coverage. 7. fall with no sign of syncope: No other injury with probably patient could not walk and stand up because of the severity of the infection and the ankle area. 8. Restless leg syndrome. Continue Requip 10 mg at bedtime. 9. Chronic anemia. continue iron supplement repeat CBC daily basis. 10. Sjogren's, stable. Continue pilocarpine 5 mg 3 times daily. 11. Generalized anxiety disorder, insomnia. Continue Ambien 10 mg at bedtime. 12. DVT prophylaxis. Heparin subcu. 13. GERD and GI prophylaxis. Protonix. CODE STATUS: Full code. DISCHARGE PLAN Most likely home on Monday with IV antibiotics Impression and plan of care have been directed as dictated by the signing physician. Cici Chatman nurse practitioner acting as scribe for signing ph ysician. Objective - Vital Signs Vital signs: Vital Signs Temp 98.5 F 11/19/21 01:38 Pulse 79 11/19/21 01:38 Resp 16 11/19/21 01:38 BP 93/54 11/19/21 01:38 Pulse Ox 91 L 11/19/21 01:38 Intake & Output 11/18/21 11/19/21 11/19/21 18:59 06:59 18:59 Intake Total 1750 Output Total 5 Balance 1745 Weight 81.647 kg Intake: IV 1400 Sodium Chloride 0.9% 1, 900 000 ml @ 75 mls/hr IV . [id number] [facility] Rx#:[id number] Oral 350 Output: Estimated Blood Loss 5 Other: Voiding Method Bedpan # Voids 1 1 # Bowel Movements 0 - Labs CBC & Chem 7: 11/19/21 06:16 11/19/21 08:18 Labs: Abnormal Lab Results - Last 24 Hours (Table) 11/19/21 Range/Units 06:16 Sodium 135 L (137-145) mmol/L Potassium 2.5 L* (3.5-5.1) mmol/L BUN 19 H (7-17) mg/dL Glucose 128 H (74-99) mg/dL Calcium 7.7 L (8.4-10.2) mg/dL Creatine Kinase 239 H (30-135) U/L C-Reactive Protein 22.4 H (<1.0) mg/dL Total Protein 5.1 L (6.3-8.2) g/dL Albumin 2.6 L (3.5-5.0) g/dL Microbiology - Last 24 Hours (Table) 11/18/21 09:10 Gram Stain - Preliminary Knee - Right Wound Culture - Preliminary 11/17/21 21:10 Gram Stain - Preliminary Ankle - Right Wound Culture - Preliminary Presumptive Staph aureus 11/17/21 14:16 Blood Culture Gram Stain - Preliminary Blood Blood Culture - Preliminary Staphylococcus aureus 11/18/21 09:10 Anaerobic Culture - Preliminary Knee - Right 11/18/21 09:10 Fungal Culture - Preliminary Knee - Right 11/17/21 14:10 Blood Culture Gram Stain - Preliminary Blood 11/17/21 14:10 Blood Culture - Final Blood 11/17/21 14:16 Blood Culture - Final Blood
[2021-11-19 11:54] LABS: Erythrocyte Sedimentation Rate 37 mm/Hr (0-30)
[2021-11-19] MEDS: POTASSIUM CHLORIDE ER 20 MEQ TAB.ER PO SCH ×4 (12:12→16:02)
[2021-11-19] MEDS: MORPHINE SULFATE 4 MG/ML SYRINGE IV PRN ×2 (13:10→21:13)
--- NOTE | 2021-11-19 16:11 | P.PN ---
Subjective Progress Note Date: 11/19/21 Principal diagnosis: Right ankle septic arthritis with MSSA bacteremia Patient is a 56-year-old female presented to the hospital with writing in pain swelling or redness in this patient who is status post I&D and drainage of the right ankle abscess and the patient also have evidence of MSSA bacteremia. On today's evaluation that is 11/19/2021, the patient denies having any fever or chills, the patient pain to the right ankle area is currently controlled, patient denies having any chest pain or shortness of breath or cough no nausea no vomiting no abdominal pain no diarrhea Objective - Vital Signs Vital signs: Vital Signs Temp 97.8 F 11/19/21 08:00 Pulse 81 11/19/21 08:00 Resp 18 11/19/21 08:00 BP 90/53 11/19/21 08:00 Pulse Ox 99 11/19/21 08:00 Intake & Output 11/18/21 11/19/21 11/19/21 18:59 06:59 18:59 Intake Total 1750 Output Total 5 Balance 1745 Weight 81.647 kg Intake: IV 1400 Sodium Chloride 0.9% 1, 900 000 ml @ 75 mls/hr IV . [id number] [facility] Rx#:[id number] Oral 350 Output: Estimated Blood Loss 5 Other: Voiding Method Bedpan # Voids 1 1 1 # Bowel Movements 0 1 - Exam GENERAL DESCRIPTION: A middle-aged female lying in bed in no distress RESPIRATORY SYSTEM: Unlabored breathing , decreased breath sounds at bases HEART: S1 S2 regular rate and rhythm , ABDOMEN: Soft , no tenderness EXTREMITIES: Right ankle is currently dressed no drainage on the dressing - Labs CBC & Chem 7: 11/19/21 06:16 11/19/21 08:18 Labs: Abnormal Lab Results - Last 24 Hours (Table) 11/19/21 11/19/21 11/19/21 Range/Units 06:16 06:16 08:18 RBC 2.14 L (4.10-5.20) X 10*6/uL Hgb 7.1 L (12.0-15.0) g/dL Hct 22.7 L (37.2-46.3) % MCV 106.1 H (80.0-97.0) fL MCH 33.2 H (27.0-32.0) pg MCHC 31.3 L (32.0-37.0) g/dL MPV 9.2 L (9.5-12.2) fL ESR 37 H (0-30) mm/Hr Sodium 135 L (137-145) mmol/L Potassium 2.5 L* 2.8 L (3.5-5.1) mmol/L BUN 19 H (7-17) mg/dL Glucose 128 H (74-99) mg/dL Calcium 7.7 L (8.4-10.2) mg/dL Creatine Kinase 239 H (30-135) U/L C-Reactive Protein 22.4 H (<1.0) mg/dL Total Protein 5.1 L (6.3-8.2) g/dL Albumin 2.6 L (3.5-5.0) g/dL Microbiology - Last 24 Hours (Table) 11/18/21 09:10 Gram Stain - Preliminary Knee - Right Wound Culture - Preliminary Presumptive Staph aureus 11/17/21 21:10 Gram Stain - Preliminary Ankle - Right Wound Culture - Preliminary Presumptive Staph aureus 11/17/21 14:16 Blood Culture Gram Stain - Preliminary Blood Blood Culture - Preliminary Staphylococcus aureus 11/18/21 09:10 Anaerobic Culture - Preliminary Knee - Right 11/18/21 09:10 Fungal Culture - Preliminary Knee - Right 11/17/21 14:10 Blood Culture Gram Stain - Preliminary Blood 11/17/21 14:10 Blood Culture - Final Blood 11/17/21 14:16 Blood Culture - Final Blood Assessment and Plan (1) Septic arthritis of right ankle Current Visit: Yes Status: Acute Code(s): M00.9 - PYOGENIC ARTHRITIS, UNSPECIFIED SNOMED Code(s): 1430163247611481 Plan: 1patient presented hospital with sepsis in this patient who did have a fever tachycardia elevated white count with significant pain to the right ankle area w ith associated swelling and a cloudy fluid likely source is the right ankle septic arthritis and likely from gram-positive skin cleopatra such as staph aureus. 2patient with MSSA bacteremia likely source is the right ankle septic arthritis. 3 blood cultures has been repeated to document clearance of bacteremia. 4patient to continue with cefazolin 2 g every 8 hours, wound will be examined tomorrow at the time of wound VAC changed to advise further wound care Time with Patient: Less than 30
[2021-11-19] MEDS: CYCLOBENZAPRINE 10 MG TAB PO SCH (20:00)
[2021-11-19] MEDS: traZODone HCL 100 MG TAB PO SCH (20:00)
[2021-11-19] MEDS: rOPINIRole HCL 4 MG TABLET PO SCH (20:01)
[2021-11-20] MEDS: HYDROCORTISONE SUCCINATE 100 MG/2 ML VIAL IV SCH ×3 (00:13→15:38)
[2021-11-20] MEDS: MORPHINE SULFATE 4 MG/ML SYRINGE IV PRN ×4 (02:21→22:26)
[2021-11-20 04:18] LABS: HCT 25.7 % (34.0-46.0); MCH 33.7 pg (25.0-35.0); MCHC 31.4 g/dL (31.0-37.0); MCV 107.1 fL (80.0-100.0); Macrocytosis Moderate; Mean Platelet Volume 7.6; Platelet Count 312 k/uL (150-450); RDW 13.9 % (11.5-15.5); WBC 7.2 k/uL (3.8-10.6)
[2021-11-20 04:30] LABS: HGB 8.1 gm/dL (11.4-16.0); Potassium 4.3 mmol/L (3.5-5.1)
[2021-11-20 04:31] LABS: ALT 25 U/L (4-34); AST 36 U/L (14-36); African American GFR (CKD) 74 (>60 ml/min/1.73 sqM); Albumin 2.7 g/dL (3.5-5.0); Alkaline Phosphatase 89 U/L (38-126); Anion Gap 4 mmol/L; Blood Urea Nitrogen 24 mg/dL (7-17); Calcium 8.3 mg/dL (8.4-10.2); Carbon Dioxide 28 mmol/L (22-30); Chloride 106 mmol/L (98-107); Creatine Kinase 154 U/L (30-135); Globulin 2.6 g/dL; Glucose 147 mg/dL (74-99); Non-African American GFR(CKD) 64 (>60 ml/min/1.73 sqM); Sodium 138 mmol/L (137-145); Total Bilirubin 0.3 mg/dL (0.2-1.3); Total Protein 5.3 g/dL (6.3-8.2)
[2021-11-20] MEDS: METOPROLOL TARTRATE 50 MG TAB PO SCH ×2 (08:09→19:35)
[2021-11-20] MEDS: CHLORTHALIDONE 25 MG TAB PO SCH (08:09)
[2021-11-20] MEDS: ASCORBIC ACID 500 MG TAB PO SCH ×2 (08:09→19:34)
[2021-11-20] MEDS: ONDANSETRON 4 MG TAB PO SCH ×3 (08:09→22:00)
[2021-11-20] MEDS: ZINC SULFATE 220 MG CAP PO SCH ×2 (08:09→19:34)
[2021-11-20] MEDS: LOSARTAN 25 MG TAB PO SCH (08:09)
[2021-11-20] MEDS: MAGNESIUM OXIDE 400 MG TAB PO SCH ×2 (08:09→19:35)
[2021-11-20] MEDS: FAMOTIDINE 20 MG TAB PO SCH (08:10)
[2021-11-20] MEDS: HEPARIN SODIUM,PORCINE/PF 5,000 UNIT/0.5 ML SYRINGE SQ SCH ×2 (08:10→19:35)
[2021-11-20] MEDS: LORATADINE 10 MG TAB PO SCH (08:10)
[2021-11-20] MEDS: PILOCARPINE 5 MG TAB PO SCH ×3 (08:11→22:00)
[2021-11-20] MEDS: DEXTROAMPHETAMINE SULFATE 15 MG PO SCH ×2 (08:11→22:00)
[2021-11-20] MEDS: VERAPAMIL SR 120 MG TABLET.ER PO SCH (08:12)
--- NOTE | 2021-11-20 08:49 | P.PN ---
Subjective Progress Note Date: 11/20/21 This is a 55-year-old female who is status post irrigation and debridement of the right ankle joint and application of negative pressure wound VAC by Dr. Lawrence. This is postoperative day #2 and patient is seen and evaluated at bedside today. Patient admits to mild soreness in the right ankle this morning, otherwise she denies any new complaints. Objective - Vital Signs Vital signs: Vital Signs Temp 98.1 F 11/20/21 07:22 Pulse 94 11/20/21 07:22 Resp 17 11/20/21 07:22 BP 112/71 11/20/21 07:22 Pulse Ox 93 L 11/20/21 07:22 Intake & Output 11/19/21 11/20/21 11/20/21 18:59 06:59 18:59 Intake Total 690 Balance 690 Intake: Intake, IV Titration 290 Amount Sodium Chloride 0.9% 1, 240 000 ml @ 130 mls/hr IV . Q7H42M [facility] Rx#:[id number] ceFAZolin 2 gm In Sodium 50 Chloride 0.9% 50 ml @ 100 mls/hr IVPB Q8H [facility] Rx#: [id number] Oral 400 Other: # Voids 4 2 # Bowel Movements 1 - Exam On exam dressing is clean, dry and intact with wound VAC present. Sensation intact. Patient is able to wiggle the toes of the right foot. The right lower extremity is warm and well perfused. - Labs CBC & Chem 7: 11/20/21 03:52 11/20/21 03:52 Labs: Abnormal Lab Results - Last 24 Hours (Table) 11/19/21 11/19/21 11/20/21 Range/Units 06:16 08:18 03:52 RBC 2.14 L 2.40 L (4.10-5.20) X 10*6/uL Hgb 7.1 L 8.1 L D (12.0-15.0) g/dL Hct 22.7 L 25.7 L (37.2-46.3) % MCV 106.1 H 107.1 H (80.0-97.0) fL MCH 33.2 H (27.0-32.0) pg MCHC 31.3 L (32.0-37.0) g/dL MPV 9.2 L (9.5-12.2) fL ESR 37 H (0-30) mm/Hr Potassium 2.8 L (3.5-5.1) mmol/L BUN (7-17) mg/dL Glucose (74-99) mg/dL Calcium (8.4-10.2) mg/dL Creatine Kinase (30-135) U/L Total Protein (6.3-8.2) g/dL Albumin (3.5-5.0) g/dL 11/20/21 Range/Units 03:52 RBC (4.10-5.20) X 10*6/uL Hgb (12.0-15.0) g/dL Hct (37.2-46.3) % MCV (80.0-97.0) fL MCH (27.0-32.0) pg MCHC (32.0-37.0) g/dL MPV (9.5-12.2) fL ESR (0-30) mm/Hr Potassium (3.5-5.1) mmol/L BUN 24 H (7-17) mg/dL Glucose 147 H (74-99) mg/dL Calcium 8.3 L (8.4-10.2) mg/dL Creatine Kinase 154 H (30-135) U/L Total Protein 5.3 L (6.3-8.2) g/dL Albumin 2.7 L (3.5-5.0) g/dL Microbiology - Last 24 Hours (Table) 11/19/21 06:16 Blood Culture - Preliminary Blood No Growth after 24 hours 11/17/21 21:10 Gram Stain - Final Ankle - Right Wound Culture - Final Staphylococcus aureus 11/17/21 14:10 Blood Culture Gram Stain - Preliminary Blood Blood Culture - Preliminary Presumptive Staph aureus 11/17/21 14:16 Blood Culture Gram Stain - Preliminary Blood Blood Culture - Preliminary Staphylococcus aureus 11/18/21 09:10 Gram Stain - Preliminary Knee - Right Wound Culture - Preliminary Presumptive Staph aureus Assessment and Plan Assessment: Right ankle joint sepsis Plan: 1. Blood cultures are negative. Wound cultures show presumptive staph aureus. 2. IV antibiotics and wound care per infectious disease. 3. Patient is awaiting PICC line placement and arrangement of discharge antib iotics per infectious disease.
--- NOTE | 2021-11-20 15:01 | P.PN ---
Subjective Progress Note Date: 11/20/21 HISTORY OF PRESENT ILLNESS This is a 55-year-old female patient of Dr. Pak with past medical history of fibromyalgia, Sjogren syndrome, degenerative disc disease, MS, migraine headaches. patient presented to the emergency department at [facility] with complaint of severe pain in the right ankle area since Monday evening, patient did not answer her phone call today the family found her on the floor which patient not quite sure how long was down on the floor for does not remember the circumstances well did not pass out. EMS ended up bringing a Chin to the emergency department at [facility] where was seen and evaluated found to have significantly and large swelling tender and hot joint at the time. Ended up going for x-ray showed hardware of the fibia of right sidewith significant reactive osteomyelitis around the hardware with significant swelling and change in the joint. With other testing included elevated white blood cell, sed rate 94, CK was 1225 and C-reactive protein of 9.0. COVID-19 and influenza were negative. With above problem patient has high suspicion for septic joint, was started on IV vancomycin and Zosyn patient be seen infectious disease and orthopedic might drained the joint at this point for culture and management. 11/18: Patient went to the OR today for I&D of the right ankle with Dr. Lawrence. Patient only has IV access in her right breast and midline will be ordered. Patient has been afebrile, heart rate 94, blood pressure 138/81, pulse ox 91-95% on 2 L nasal cannula. Right lower extremity ultrasound negative for DVT. Repeat creatinine 1.08. Synovial fluid was cloudy, RBCs 53,500, nucleated cells 262,500, probably nuclear 79%, mononuclear 21%. 11/19: Yesterday, patient underwent open irrigation and debridement with removal of pus, devitalized soft tissue and intra-articular presumably infected bone fr agments. Wound VAC was applied. Patient is to be seen by Dr. Mendez. She is currently on IV antibiotics with Kefzol. Midline was placed yesterday as patient only had IV access in her breast. Blood culture and ankle cultures are showing presumptive staph aureus. She has been afebrile, heart rate 81, blood pressure 90/53, pulse ox 99% on 2 L nasal cannula. Repeat blood work reveals WBC 9.4, hemoglobin 7.1, platelet count 266. Potassium 2.8 and will be replaced. Sodium 135, BUN 19 and creatinine 0.84. Blood sugar 128. Calcium 7.7. Liver function tests were normal. CK 239, C-reactive protein 22.4. Albumin 2.6. Patient shows no sign of active bleeding. Repeat blood work ordered for tomorrow. Daughter Grace has been updated over the phone. Patient plans to return home with the help of her mother and her daughter to do IV antibiotics at home. manager of supply chain is following. Anticipate probable discharge on Monday. 11/20: Patient's doing okay, no lightheadedness and dizziness no fever no chills, no nausea no diarrhea, appetite and fluid intake is good, wound VAC is ongoing leg swelling is improved on the right leg, patient does not have significant edema except on the toes, wound is surgically dressed, with coban wrap, went dissipating discharge by Monday, she does have right ankle abscess, with evidence of MSSA bacteremia. On cefazolin 2 g, every 8 hours, REVIEW OF SYSTEMS Constitutional: Reports fever, reports chills, no night sweats. No weight change. No weakness, fatigue or lethargy. No daytime sleepiness. EENT: No headache. No blurred vision or double vision, no loss of vision. No loss of Hearing, no ringing in the ears, no dizziness. No nasal drainage or congestion. No epistaxis. No sore throat. Lungs: No shortness of breath, cough, no sputum production. No wheezing. Cardiovascular: No chest pain, no lower extremity edema. No palpitations. No paroxysmal nocturnal dyspnea. No orthopnea. No lightheadedness or dizziness. No syncopal episodes. Abdominal: Denies lower abdominal pain. No nausea, vomiting. Reports diarrhea. No constipation. No bloody or tarry stools.. No loss of appetite. Genitourinary: No dysuria, increased frequency, urgency. No urinary retention. Musculoskeletal: No myalgias. No muscle weakness, reported gait dysfunction, no frequent falls. No back pain. No neck pain. right foot pain and discomfort with wound VAC. Integumentary: No wounds, no lesions. No rash or pruritus. No unusual bruising. No change in hair or nails. Neurologic: No aphasia. No facial droop. No change in mentation. No head injury. No headache. No paralysis. No paresthesia. Psychiatric: No depression. No anxiety. No mood swings. Endocrine: No abnormal blood sugars. No weight change. No excessive sweating or thirst. No cold intolerance. PHYSICAL EXAMINATION Gen: This is a 55-year-old female. She is resting in bed and appears to be comfortable and in no acute distress. HEENT: Head is atraumatic, normocephalic. Pupils equal, round. Sclerae is anicteric. NECK: Supple. No JVD. No lymphadenopathy. No thyromegaly. LUNGS: Clear to auscultation. No wheezes or rhonchi. No intercostal retractions. HEART: Regular rate and rhythm. No murmur. ABDOMEN: Soft. Bowel sounds are present. No masses. Lower abdominaltenderness. EXTREMITIES: trace edema, right ankle wound with wound VAC in place. NEUROLOGICAL: Patient is awake, alert and oriented x3. Cranial nerves 2 through 12 are grossly intact. ASSESSMENT AND PLAN 1. Septic joint and osteoarthritis with wound culture is presumptive for staph aureus. Patient is currently on Kefzol managed by Dr. Mendez. Blood cultures also positive. Patient has midline in place for IV access. 2. mild rhabdomyolysis, resolving. 3. possible adrenal insufficiency with slight reaction to the current infection and somebody has been on steroid for long time, switch patient to hydrocortisone at this point and being might be aggressive with it. 4. Hypertension. Continue verapamil 120 mg daily, losartan 100 mg daily 5. Multiple sclerosis, stable without exacerbation. Continue Flexeril 10 mg 3 times daily as needed and 10 mg at bedtime. 6. hyperglycemia: With the current dose of steroid patient will be on Accu-Chek with sliding scales coverage. 7. fall with no sign of syncope: No other injury with probably patient could not walk and stand up because of the severity of the infection and the ankle area. 8. Restless leg syndrome. Continue Requip 10 mg at bedtime. 9. Chronic anemia. continue iron supplement repeat CBC daily basis. 10. Sjogren's, stable. Continue pilocarpine 5 mg 3 times daily. 11. Generalized anxiety disorder, insomnia. Continue Ambien 10 mg at bedtime. 12. DVT prophylaxis. Heparin subcu. 13. GERD and GI prophylaxis. Protonix. CODE STATUS: Full code. DISCHARGE PLAN Most likely home on Monday with IV antibiotics Objective - Vital Signs Vital signs: Vital Signs Temp 98.2 F 11/20/21 14:00 Pulse 97 11/20/21 14:00 Resp 18 11/20/21 14:00 BP 129/41 11/20/21 14:00 Pulse Ox 96 11/20/21 14:00 Intake & Output 11/19/21 11/20/21 11/20/21 18:59 06:59 18:59 Intake Total 690 Balance 690 Intake: Intake, IV Titration 290 Amount Sodium Chloride 0.9% 1, 240 000 ml @ 130 mls/hr IV . Q7H42M [facility] Rx#:[id number] ceFAZolin 2 gm In Sodium 50 Chloride 0.9% 50 ml @ 100 mls/hr IVPB Q8H [facility] Rx#: [id number] Oral 400 Other: # Voids 4 2 # Bowel Movements 1 - Labs CBC & Chem 7: 11/20/21 03:52 11/20/21 03:52 Labs: Abnormal Lab Results - Last 24 Hours (Table) 11/20/21 11/20/21 Range/Units 03:52 03:52 RBC 2.40 L (3.80-5.40) m/uL Hgb 8.1 L D (11.4-16.0) gm/dL Hct 25.7 L (34.0-46.0) % MCV 107.1 H (80.0-100.0) fL BUN 24 H (7-17) mg/dL Glucose 147 H (74-99) mg/dL Calcium 8.3 L (8.4-10.2) mg/dL Creatine Kinase 154 H (30-135) U/L Total Protein 5.3 L (6.3-8.2) g/dL Albumin 2.7 L (3.5-5.0) g/dL Microbiology - Last 24 Hours (Table) 11/19/21 06:16 Blood Culture - Preliminary Blood No Growth after 24 hours 11/17/21 21:10 Gram Stain - Final Ankle - Right Wound Culture - Final Staphylococcus aureus 11/17/21 14:10 Blood Culture Gram Stain - Preliminary Blood Blood Culture - Preliminary Presumptive Staph aureus 11/17/21 14:16 Blood Culture Gram Stain - Preliminary Blood Blood Culture - Preliminary Staphylococcus aureus 11/18/21 09:10 Gram Stain - Preliminary Knee - Right Wound Culture - Preliminary Presumptive Staph aureus
[2021-11-20] MEDS ORDERED: ZOLPIDEM 5 MG TAB PO PRN (15:10)
[2021-11-20] MEDS: rOPINIRole HCL 4 MG TABLET PO SCH (19:33)
[2021-11-20] MEDS: CYCLOBENZAPRINE 10 MG TAB PO SCH (22:00)
[2021-11-20] MEDS: traZODone HCL 100 MG TAB PO SCH (22:00)
[2021-11-21] MEDS: HYDROCORTISONE SUCCINATE 100 MG/2 ML VIAL IV SCH ×3 (00:14→17:12)
--- NOTE | 2021-11-21 00:25 | P.PN ---
Subjective Progress Note Date: 11/20/21 Principal diagnosis: Right ankle septic arthritis with MSSA bacteremia Patient is a 56-year-old female presented to the hospital with writing in pain swelling or redness in this patient who is status post I&D and drainage of the right ankle abscess and the patient also have evidence of MSSA bacteremia. On today's evaluation that is 11/20/2021, the patient remains to be afebrile, the patient pain to the right ankle area is currently controlled, patient denies having any chest pain or shortness of breath or cough no nausea no vomiting no abdominal pain no diarrhea Objective - Vital Signs Vital signs: Vital Signs Temp 98.2 F 11/20/21 14:00 Pulse 97 11/20/21 14:00 Resp 18 11/20/21 14:00 BP 129/41 11/20/21 14:00 Pulse Ox 96 11/20/21 14:00 Intake & Output 11/19/21 11/20/21 11/20/21 18:59 06:59 18:59 Intake Total 690 Balance 690 Intake: Intake, IV Titration 290 Amount Sodium Chloride 0.9% 1, 240 000 ml @ 130 mls/hr IV . Q7H42M [facility] Rx#:[id number] ceFAZolin 2 gm In Sodium 50 Chloride 0.9% 50 ml @ 100 mls/hr IVPB Q8H [facility] Rx#: [id number] Oral 400 Other: # Voids 4 2 # Bowel Movements 1 - Exam GENERAL DESCRIPTION: A middle-aged female lying in bed in no distress RESPIRATORY SYSTEM: Unlabored breathing , decreased breath sounds at bases HEART: S1 S2 regular rate and rhythm , ABDOMEN: Soft , no tenderness EXTREMITIES: Right ankle wound base looks clean with good granulation tissue no surrounding redness or drainage - Labs CBC & Chem 7: 11/20/21 03:52 11/20/21 03:52 Labs: Abnormal Lab Results - Last 24 Hours (Table) 11/20/21 11/20/21 Range/Units 03:52 03:52 RBC 2.40 L (3.80-5.40) m/uL Hgb 8.1 L D (11.4-16.0) gm/dL Hct 25.7 L (34.0-46.0) % MCV 107.1 H (80.0-100.0) fL BUN 24 H (7-17) mg/dL Glucose 147 H (74-99) mg/dL Calcium 8.3 L (8.4-10.2) mg/dL Creatine Kinase 154 H (30-135) U/L Total Protein 5.3 L (6.3-8.2) g/dL Albumin 2.7 L (3.5-5.0) g/dL Microbiology - Last 24 Hours (Table) 11/19/21 06:16 Blood Culture - Preliminary Blood No Growth after 24 hours 11/17/21 21:10 Gram Stain - Final Ankle - Right Wound Culture - Final Staphylococcus aureus 11/17/21 14:10 Blood Culture Gram Stain - Preliminary Blood Blood Culture - Preliminary Presumptive Staph aureus 11/17/21 14:16 Blood Culture Gram Stain - Preliminary Blood Blood Culture - Preliminary Staphylococcus aureus Assessment and Plan (1) Septic arthritis of right ankle Current Visit: Yes Status: Acute Code(s): M00.9 - PYOGENIC ARTHRITIS, UNSPE CIFIED SNOMED Code(s): 9773798572031722 Plan: 1patient presented hospital with sepsis in this patient who did have a fever tachycardia elevated white count with significant pain to the right ankle area with associated swelling and a cloudy fluid likely source is the right ankle septic arthritis and likely from gram-positive skin cleopatra such as staph aureus. 2patient with MSSA bacteremia likely source is the right ankle septic arthritis. 3 blood cultures repeat has been negative so far 4patient to continue with cefazolin 2 g every 8 hours, right ankle wound care to be continued with wound VAC black foam continuous pressure 125 mmHg to be changed monday Time with Patient: Less than 30
[2021-11-21] MEDS: DEXTROAMPHETAMINE SULFATE 15 MG PO SCH ×2 (07:19→22:44)
[2021-11-21] MEDS: HEPARIN SODIUM,PORCINE/PF 5,000 UNIT/0.5 ML SYRINGE SQ SCH ×2 (07:44→22:42)
[2021-11-21] MEDS: ONDANSETRON 4 MG TAB PO SCH ×3 (07:44→22:43)
[2021-11-21] MEDS: CHLORTHALIDONE 25 MG TAB PO SCH (07:44)
[2021-11-21] MEDS: LOSARTAN 25 MG TAB PO SCH (07:45)
[2021-11-21] MEDS: MAGNESIUM OXIDE 400 MG TAB PO SCH ×2 (07:45→22:43)
[2021-11-21] MEDS: ASCORBIC ACID 500 MG TAB PO SCH ×2 (07:45→22:43)
[2021-11-21] MEDS: ZINC SULFATE 220 MG CAP PO SCH ×2 (07:45→22:43)
[2021-11-21] MEDS: METOPROLOL TARTRATE 50 MG TAB PO SCH ×2 (07:45→22:43)
[2021-11-21] MEDS: LORATADINE 10 MG TAB PO SCH (07:45)
[2021-11-21] MEDS: FAMOTIDINE 20 MG TAB PO SCH (07:45)
[2021-11-21] MEDS: VERAPAMIL SR 120 MG TABLET.ER PO SCH (07:46)
[2021-11-21] MEDS: PILOCARPINE 5 MG TAB PO SCH ×3 (07:46→22:43)
[2021-11-21] MEDS: MORPHINE SULFATE 4 MG/ML SYRINGE IV PRN (08:47)
[2021-11-21] MEDS ORDERED: HYDROcodone/APAP 7.5-325MG 1 EACH TAB PO PRN (10:16)
--- NOTE | 2021-11-21 10:16 | P.PN ---
Subjective Progress Note Date: 11/21/21 This is a 55-year-old female who is status post irrigation and debridement of the right ankle joint and application of negative pressure wound VAC by Dr. Lawrence. This is postoperative day #3 and patient is seen and evaluated at bedside today. Patient denies any new complaints today and states that her pain is well controlled. Objective - Vital Signs Vital signs: Vital Signs Temp 98.3 F 11/21/21 07:18 Pulse 98 11/21/21 07:18 Resp 17 11/21/21 07:18 BP 122/72 11/21/21 07:18 Pulse Ox 95 11/21/21 07:18 Intake & Output 11/20/21 11/21/21 11/21/21 18:59 06:59 18:59 Other: # Voids 2 - Exam On exam dressing is clean, dry and intact with wound VAC present. Sensation intact. Patient is able to wiggle the toes of the right foot. The right lower extremity is warm and well perfused. - Labs CBC & Chem 7: 11/20/21 03:52 11/20/21 03:52 Labs: Microbiology - Last 24 Hours (Table) 11/19/21 06:16 Blood Culture - Preliminary Blood No Growth after 48 hours 11/20/21 03:52 Blood Culture - Preliminary Blood No Growth after 24 hours 11/17/21 14:10 Blood Culture Gram Stain - Final Blood Blood Culture - Final Staphylococcus aureus 11/17/21 14:16 Blood Culture Gram Stain - Final Blood Blood Culture - Final Staphylococcus aureus 11/18/21 09:10 Anaerobic Culture - Preliminary Knee - Right 11/18/21 09:10 Gram Stain - Final Knee - Right Wound Culture - Final Staphylococcus aureus Assessment and Plan Assessment: Right ankle joint sepsis Plan: 1. Blood cultures are negative. Wound cultures show staph aureus. 2. IV antibiotics and wound care per infectious disease. 3. Patient is awaiting PICC line placement and arrangement of discharge antibiotics per infectious disease.
--- NOTE | 2021-11-21 14:47 | P.PN ---
Subjective Progress Note Date: 11/21/21 HISTORY OF PRESENT ILLNESS This is a 55-year-old female patient of Dr. Pak with past medical history of fibromyalgia, Sjogren syndrome, degenerative disc disease, MS, migraine headaches. patient presented to the emergency department at [facility] with complaint of severe pain in the right ankle area since Monday evening, patient did not answer her phone call today the family found her on the floor which patient not quite sure how long was down on the floor for does not remember the circumstances well did not pass out. EMS ended up bringing a Chin to the emergency department at [facility] where was seen and evaluated found to have significantly and large swelling tender and hot joint at the time. Ended up going for x-ray showed hardware of the fibia of right sidewith significant reactive osteomyelitis around the hardware with significant swelling and change in the joint. With other testing included elevated white blood cell, sed rate 94, CK was 1225 and C-reactive protein of 9.0. COVID-19 and influenza were negative. With above problem patient has high suspicion for septic joint, was started on IV vancomycin and Zosyn patient be seen infectious disease and orthopedic might drained the joint at this point for culture and management. 11/18: Patient went to the OR today for I&D of the right ankle with Dr. Lawrence. Patient only has IV access in her right breast and midline will be ordered. Patient has been afebrile, heart rate 94, blood pressure 138/81, pulse ox 91-95% on 2 L nasal cannula. Right lower extremity ultrasound negative for DVT. Repeat creatinine 1.08. Synovial fluid was cloudy, RBCs 53,500, nucleated cells 262,500, probably nuclear 79%, mononuclear 21%. 11/19: Yesterday, patient underwent open irrigation and debridement with removal of pus, devitalized soft tissue and intra-articular presumably infected bone fr agments. Wound VAC was applied. Patient is to be seen by Dr. Mendez. She is currently on IV antibiotics with Kefzol. Midline was placed yesterday as patient only had IV access in her breast. Blood culture and ankle cultures are showing presumptive staph aureus. She has been afebrile, heart rate 81, blood pressure 90/53, pulse ox 99% on 2 L nasal cannula. Repeat blood work reveals WBC 9.4, hemoglobin 7.1, platelet count 266. Potassium 2.8 and will be replaced. Sodium 135, BUN 19 and creatinine 0.84. Blood sugar 128. Calcium 7.7. Liver function tests were normal. CK 239, C-reactive protein 22.4. Albumin 2.6. Patient shows no sign of active bleeding. Repeat blood work ordered for tomorrow. Daughter Grace has been updated over the phone. Patient plans to return home with the help of her mother and her daughter to do IV antibiotics at home. digital manager is following. Anticipate probable discharge on Monday. 11/20: Patient's doing okay, no lightheadedness and dizziness no fever no chills, no nausea no diarrhea, appetite and fluid intake is good, wound VAC is ongoing leg swelling is improved on the right leg, patient does not have significant edema except on the toes, wound is surgically dressed, with coban wrap, went dissipating discharge by Monday, she does have right ankle abscess, with evidence of MSSA bacteremia. On cefazolin 2 g, every 8 hours, 11/21: Patient required in the last night, we'll going to increase trazodone 250 mg daily, to avoid giving her the Ambien routinely at home, patient has less swelling in the ankle and the foot, MSSA as dictated above, PICC line to be done in the morning, with discharge planning whether to be infused home or outpatient in the infusion center no nausea no vomiting no diarrhea, no fever no chills vitals are stable REVIEW OF SYSTEMS Constitutional: Reports fever, reports chills, no night sweats. No weight change. No weakness, fatigue or lethargy. No daytime sleepiness. EENT: No headache. No blurred vision or double vision, no loss of vision. No loss of Hearing, no ringing in the ears, no dizziness. No nasal drainage or congestion. No epistaxis. No sore throat. Lungs: No shortness of breath, cough, no sputum production. No wheezing. Cardiovascular: No chest pain, no lower extremity edema. No palpitations. No paroxysmal nocturnal dyspnea. No orthopnea. No lightheadedness or dizziness. No syncopal episodes. Abdominal: Denies lower abdominal pain. No nausea, vomiting. Reports diarrhea. No constipation. No bloody or tarry stools.. No loss of appetite. Genitourinary: No dysuria, increased frequency, urgency. No urinary retention. Musculoskeletal: No myalgias. No muscle weakness, reported gait dysfunction, no frequent falls. No back pain. No neck pain. right foot pain and discomfort with wound VAC. Integumentary: No wounds, no lesions. No rash or pruritus. No unusual bruising. No change in hair or nails. Neurologic: No aphasia. No facial droop. No change in mentation. No head injury. No headache. No paralysis. No paresthesia. Psychiatric: No depression. No anxiety. No mood swings. Endocrine: No abnormal blood sugars. No weight change. No excessive sweating or thirst. No cold intolerance. PHYSICAL EXAMINATION Gen: This is a 55-year-old female. She is resting in bed and appears to be comfortable and in no acute distress. HEENT: Head is atraumatic, normocephalic. Pupils equal, round. Sclerae is an icteric. NECK: Supple. No JVD. No lymphadenopathy. No thyromegaly. LUNGS: Clear to auscultation. No wheezes or rhonchi. No intercostal retractions. HEART: Regular rate and rhythm. No murmur. ABDOMEN: Soft. Bowel sounds are present. No masses. Lower abdominaltenderness. EXTREMITIES: trace edema, right ankle wound with wound VAC in place. NEUROLOGICAL: Patient is awake, alert and oriented x3. Cranial nerves 2 through 12 are grossly intact. ASSESSMENT AND PLAN 1. Septic joint and osteoarthritis with wound culture is presumptive for staph aureus. Patient is currently on Kefzol managed by Dr. Mendez. Blood cultures also positive. Patient has midline in place for IV access. 2. mild rhabdomyolysis, resolving. 3. possible adrenal insufficiency with slight reaction to the current infection and somebody has been on steroid for long time, switch patient to hydrocortisone at this point and being might be aggressive with it. 4. Hypertension. Continue verapamil 120 mg daily, losartan 100 mg daily 5. Multiple sclerosis, stable without exacerbation. Continue Flexeril 10 mg 3 times daily as needed and 10 mg at bedtime. 6. hyperglycemia: With the current dose of steroid patient will be on Accu-Chek with sliding scales coverage. 7. fall with no sign of syncope: No other injury with probably patient could not walk and stand up because of the severity of the infection and the ankle area. 8. Restless leg syndrome. Continue Requip 10 mg at bedtime. 9. Chronic anemia. continue iron supplement repeat CBC daily basis. 10. Sjogren's, stable. Continue pilocarpine 5 mg 3 times daily. 11. Generalized anxiety disorder, insomnia. Continue Ambien 10 mg at bedtime. 12. DVT prophylaxis. Heparin subcu. 13. GERD and GI prophylaxis. Protonix. CODE STATUS: Full code. DISCHARGE PLAN Most likely home on Monday with IV antibiotics Objective - Vital Signs Vital signs: Vital Signs Temp 98.3 F 11/21/21 07:18 Pulse 86 11/21/21 13:55 Resp 17 11/21/21 13:55 BP 142/98 11/21/21 13:55 Pulse Ox 95 11/21/21 13:55 Intake & Output 11/20/21 11/21/21 11/21/21 18:59 06:59 18:59 Other: Voiding Method Bedpan # Voids 2 - Labs CBC & Chem 7: 11/20/21 03:52 11/20/21 03:52 Labs: Microbiology - Last 24 Hours (Table) 11/19/21 06:16 Blood Culture - Preliminary Blood No Growth after 48 hours 11/20/21 03:52 Blood Culture - Preliminary Blood No Growth after 24 hours 11/17/21 14:10 Blood Culture Gram Stain - Final Blood Blood Culture - Final Staphylococcus aureus 11/17/21 14:16 Blood Culture Gram Stain - Final Blood Blood Culture - Final Staphylococcus aureus 11/18/21 09:10 Anaerobic Culture - Preliminary Knee - Right 11/18/21 09:10 Gram Stain - Final Knee - Right Wound Culture - Final Staphylococcus aureus
[2021-11-21] MEDS: traZODone HCL 50 MG TAB PO SCH (22:42)
[2021-11-21] MEDS: SENNOSIDES-DOCUSATE SODIUM 1 EACH TAB PO SCH (22:43)
[2021-11-21] MEDS: CYCLOBENZAPRINE 10 MG TAB PO SCH (22:43)
[2021-11-21] MEDS: rOPINIRole HCL 4 MG TABLET PO SCH (22:43)
[2021-11-22] MEDS: HYDROCORTISONE SUCCINATE 100 MG/2 ML VIAL IV SCH ×4 (00:24→23:05)
[2021-11-22] MEDS: HYDROcodone/APAP 7.5-325MG 1 EACH TAB PO PRN ×3 (01:45→20:52)
--- NOTE | 2021-11-22 07:38 | P.PN ---
Subjective Progress Note Date: 11/21/21 Principal diagnosis: Right ankle septic arthritis with MSSA bacteremia Patient is a 56-year-old female presented to the hospital with writing in pain swelling or redness in this patient who is status post I&D and drainage of the right ankle abscess and the patient also have evidence of MSSA bacteremia. On today's evaluation that is 11/21/2021, the patient denies any fever or chills, the patient pain to the right ankle area is currently controlled, patient denies chest pain or shortness of breath or cough no nausea no vomiting no abdominal pain no diarrhea Objective - Vital Signs Vital signs: Vital Signs Temp 98.3 F 11/21/21 07:18 Pulse 98 11/21/21 07:18 Resp 17 11/21/21 07:18 BP 122/72 11/21/21 07:18 Pulse Ox 95 11/21/21 07:18 Intake & Output 11/20/21 11/21/21 11/21/21 18:59 06:59 18:59 Other: Voiding Method Bedpan # Voids 2 - Exam GENERAL DESCRIPTION: A middle-aged female lying in bed in no distress RESPIRATORY SYSTEM: Unlabored breathing , decreased breath sounds at bases HEART: S1 S2 regular rate and rhythm , ABDOMEN: Soft , no tenderness EXTREMITIES: Right ankle wound is covered with a wound VAC - Labs CBC & Chem 7: 11/20/21 03:52 11/20/21 03:52 Labs: Microbiology - Last 24 Hours (Table) 11/19/21 06:16 Blood Culture - Preliminary Blood No Growth after 48 hours 11/20/21 03:52 Blood Culture - Preliminary Blood No Growth after 24 hours 11/17/21 14:10 Blood Culture Gram Stain - Final Blood Blood Culture - Final Staphylococcus aureus 11/17/21 14:16 Blood Culture Gram Stain - Final Blood Blood Culture - Final Staphylococcus aureus 11/18/21 09:10 Anaerobic Culture - Preliminary Knee - Right 11/18/21 09:10 Gram Stain - Final Knee - Right Wound Culture - Final Staphylococcus aureus Assessment and Plan (1) Septic arthritis of right ankle Current Visit: Yes Status: Acute Code(s): M00.9 - PYOGENIC ARTHRITIS, UNSPECIFIED SNOMED Code(s): 8788840786556189 Plan: 1patient presented hospital with sepsis in this patient who did have a fever tachycardia elevated white count with significant pain to the right ankle area with associated swelling and a cloudy fluid likely source is the right ankle septic arthritis and likely from gram-positive skin cleopatra such as staph aureus. 2patient with MSSA bacteremia likely source is the right ankle septic arthritis. 3 blood cultures repeat has been negative so far 4patient to get a PICC line in the morning and plan is to to continue with cefazolin 2 g every 8 hours 6 weeks, right ankle wound care to be continued with wound VAC black foam continuous pressure 125 mmHg to be changed monday Time with Patient: Less than 30
--- NOTE | 2021-11-22 08:25 | P.DS ---
Providers Date of admission: 11/17/21 16:53 Expected date of discharge: 11/22/21 Attending physician: Junior Lacy Consults: 11/17/21 17:19 Consult Physician Routine Consulting Provider: Tye Mendez Consult Reason/Comments: Possible septic joint-right ankle pain, febrile, leukocytosis Do you want consulting provider notified?: Yes 11/17/21 17:20 Consult Physician Routine Consulting Provider: Junior Lacy Consult Reason/Comments: Leukocytosis, possible septic joint-right ankle pain, elevated CK Do you want consulting provider notified?: Yes 11/20/21 08:26 Consult Physician Routine Consulting Provider: Chino Lawrence Consult Reason/Comments: poss septic joint Do you want consulting provider notified?: Already Contacted Primary care physician: Sujit Pak [facility] Course: HISTORY OF PRESENT ILLNESS This is a 55-year-old female patient of Dr. Pak with past medical history of fibromyalgia, Sjogren syndrome, degenerative disc disease, MS, migraine headaches. patient presented to the emergency department at [facility] with complaint of severe pain in the right ankle area since Monday evening, patient did not answer her phone call today the family found her on the floor which patient not quite sure how long was down on the floor for does not remember the circumstances well did not pass out. EMS ended up bringing a Chin to the emergency department at [facility] where was seen and evaluated found to have significantly and large swelling tender and hot joint at the time. Ended up going for x-ray showed hardware of the fibia of right sidewith significant reactive osteomyelitis around the hardware with significant swelling and change in the joint. With other testing included elevated white blood cell, sed rate 94, CK was 1225 and C-reactive protein of 9.0. COVID-19 and influenza were negative. With above problem patient has high suspicion for septic joint, was started on IV vancomycin and Zosyn patient be seen infectious disease and orthopedic might drained the joint at this point for culture and management. 11/18: Patient went to the OR today for I&D of the right ankle with Dr. Lawrence. Lotus aaron only has IV access in her right breast and midline will be ordered. Patient has been afebrile, heart rate 94, blood pressure 138/81, pulse ox 91-95% on 2 L nasal cannula. Right lower extremity ultrasound negative for DVT. Repeat creatinine 1.08. Synovial fluid was cloudy, RBCs 53,500, nucleated cells 262,500, probably nuclear 79%, mononuclear 21%. 11/19: Yesterday, patient underwent open irrigation and debridement with removal of pus, devitalized soft tissue and intra-articular presumably infected bone fragments. Wound VAC was applied. Patient is to be seen by Dr. Mendez. She is currently on IV antibiotics with Kefzol. Midline was placed yesterday as patient only had IV access in her breast. Blood culture and ankle cultures are showing presumptive staph aureus. She has been afebrile, heart rate 81, blood pressure 90/53, pulse ox 99% on 2 L nasal cannula. Repeat blood work reveals WBC 9.4, hemoglobin 7.1, platelet count 266. Potassium 2.8 and will be replaced. Sodium 135, BUN 19 and creatinine 0.84. Blood sugar 128. Calcium 7.7. Liver function tests were normal. CK 239, C-reactive protein 22.4. Albumin 2.6. Patient shows no sign of active bleeding. Repeat blood work ordered for tomorrow. Daughter Grace has been updated over the phone. Patient plans to return home with the help of her mother and her daughter to do IV antibiotics at home. it application development manager is following. Anticipate probable discharge on Monday. 11/20: Patient's doing okay, no lightheadedness and dizziness no fever no chills, no nausea no diarrhea, appetite and fluid intake is good, wound VAC is ongoing leg swelling is improved on the right leg, patient does not have significant edema except on the toes, wound is surgically dressed, with coban wrap, went dissipating discharge by Monday, she does have right ankle abscess, with evidence of MSSA bacteremia. On cefazolin 2 g, every 8 hours, 11/21: Patient required in the last night, we'll going to increase trazodone 250 mg daily, to avoid giving her the Ambien routinely at home, patient has less swelling in the ankle and the foot, MSSA as dictated above, PICC line to be done in the morning, with discharge planning whether to be infused home or outpatient in the infusion center no nausea no vomiting no diarrhea, no fever no chills vitals are stable 11/22: Patient is scheduled for PICC line insertion today. Dr. Andrea is recommended Kefzol 2 g IV piggyback every 8 hours for 6 weeks. Patient will be discharged once all arrangements are completed. Plan is for patient to be discharged with a wound VAC as well. DISCHARGE DIAGNOSES 1. Septic ankle arthritis with MSSA bacteremia. 2. Mild rhabdomyolysis, resolving. 3. Possible adrenal insufficiency with slight reaction to the current infection and somebody has been on steroid for long time, 4. Hypertension. 5. Multiple sclerosis, stable without exacerbation. 6. hyperglycemia secondary to steroids 7. fall with no sign of syncope 8. Restless leg syndrome. 9. Chronic anemia. 10. Sjogren's, stable. 11. Generalized anxiety disorder, insomnia. DISCHARGE PLAN Home with [facility] and IV antibiotics Greater than 35 minutes was utilized and coordinating patient's discharge. Impression and plan of care have been directed as dictated by the signing physician. Cici Chatman nurse practitioner acting as scribe for signing physician. Patient Condition at Discharge: Stable Plan - Discharge Summary Discharge Rx Participant: Yes New Discharge Prescriptions: New Sennosides-Docusate Sodium [Senokot-S] 1 each PO BID tab ceFAZolin [Kefzol] 2 gm IVPB Q8HR #126 dose HYDROcodone/APAP 7.5-325MG [[place] 7.5-325] 1 each PO Q6H PRN #12 tab PRN Reason: Pain Scale 1 To 5 Acetaminophen Tab [Tylenol] 1,000 mg PO Q6HR PRN tab PRN Reason: Mild Pain Or Fever > 100.5 Continue Cyclobenzaprine [Flexeril] 10 mg PO HS rOPINIRole HCL [Requip] 10 mg PO HS Pilocarpine HCl [Salagen] 5 mg PO TID Dextroamphetamine Sulfate [Dexedrine] 15 mg PO BID Ascorbic Acid [Vitamin C] 500 mg PO BID Cetirizine HCl 10 mg PO DAILY Famotidine 40 mg PO DAILY Azilsartan Med/Chlorthalidone [Edarbyclor 40-25 mg Tablet] 1 tab PO DAILY Zolpidem [Ambien] 10 mg PO HS PRN PRN Reason: SLEEP Verapamil HCl [Verapamil ER] 120 mg PO DAILY predniSONE 10 mg PO TID PRN PRN Reason: Inflammation ondansetron HCL [Zofran] 8 mg PO TID Diclofenac Sodium Gel [Voltaren Gel] 2 gm TOPICAL BID PRN PRN Reason: Pain Magnesium Oxide [Mag-Ox] 400 mg PO BID traZODone HCL [Desyrel] 100 mg PO HS Zinc 50 mg PO BID Ergocalciferol (Vitamin D2) [Drisdol (50,000 Iu)] 1,250 mcg PO Q30D Elderberry Fruit and Flower [Black Elderberry 575 mg Cap] 2 cap PO W/SUPPER Metoprolol Tartrate [Lopressor] 50 mg PO BID Discharge Medication List Cyclobenzaprine [Flexeril] 10 mg PO HS 09/27/17 [History] Pilocarpine HCl [Salagen] 5 mg PO TID 09/27/17 [History] rOPINIRole HCL [Requip] 10 mg PO HS 09/27/17 [History] Dextroamphetamine Sulfate [Dexedrine] 15 mg PO BID 12/20/18 [History] Ascorbic Acid [Vitamin C] 500 mg PO BID 11/25/19 [History] Cetirizine HCl 10 mg PO DAILY 03/23/21 [History] Diclofenac Sodium Gel [Voltaren Gel] 2 gm TOPICAL BID PRN 03/23/21 [History] Verapamil HCl [Verapamil ER] 120 mg PO DAILY 03/23/21 [History] Zolpidem [Ambien] 10 mg PO HS PRN 03/23/21 [History] ondansetron HCL [Zofran] 8 mg PO TID 03/23/21 [History] predniSONE 10 mg PO TID PRN 03/23/21 [History] Azilsartan Med/Chlorthalidone [Edarbyclor 40-25 mg Tablet] 1 tab PO DAILY 11/17/21 [History] Elderberry Fruit and Flower [Black Elderberry 575 mg Cap] 2 cap PO W/SUPPER 11/17/21 [History] Ergocalciferol (Vitamin D2) [Drisdol (50,000 Iu)] 1,250 mcg PO Q30D 11/17/21 [History] Famotidine 40 mg PO DAILY 11/17/21 [History] Magnesium Oxide [Mag-Ox] 400 mg PO BID 11/17/21 [History] Metoprolol Tartrate [Lopressor] 50 mg PO BID 11/17/21 [History] Zinc 50 mg PO BID 11/17/21 [History] traZODone HCL [Desyrel] 100 mg PO HS 11/17/21 [History] Acetaminophen Tab [Tylenol] 1,000 mg PO Q6HR PRN tab 11/22/21 [Rx] HYDROcodone/APAP 7.5-325MG [[place] 7.5-325] 1 each PO Q6H PRN #12 tab 11/22/21 [Rx] Sennosides-Docusate Sodium [Senokot-S] 1 each PO BID tab 11/22/21 [Rx] ceFAZolin [Kefzol] 2 gm IVPB Q8HR #126 dose 11/22/21 [Rx] Follow up Appointment(s)/Referral(s): Anika Riley [NON-STAFF] - As Needed Sujit Pak DO [Primary Care Provider] - 11/30/21 2:00 pm Ambulatory/Diagnostic Orders: Basic Metabolic Panel [LAB.AMB] Location: None Selected C Reactive Protein [LAB.AMB] Location: None Selected Complete Blood Count w/diff [LAB.AMB] Location: None Selected Erythrocyte Sedimentation Rate [LAB.AMB] Location: None Selected Activity/Diet/Wound Care/Special Instructions: Local wound care to the ankle area with a wound VAC black form of continuous pressure 1 25 mmHg change Monday, follow-up with Dr. Mendez in the wound care center 1 week, call [phone] to make an appointment Discharge Disposition: HOME WITH HOME HEALTH SERVICES
[2021-11-22] MEDS: PILOCARPINE 5 MG TAB PO SCH ×3 (08:30→20:26)
[2021-11-22] MEDS: HEPARIN SODIUM,PORCINE/PF 5,000 UNIT/0.5 ML SYRINGE SQ SCH ×2 (08:30→20:24)
[2021-11-22] MEDS: FAMOTIDINE 20 MG TAB PO SCH (08:30)
[2021-11-22] MEDS: METOPROLOL TARTRATE 50 MG TAB PO SCH ×2 (08:30→20:24)
[2021-11-22] MEDS: VERAPAMIL SR 120 MG TABLET.ER PO SCH (08:30)
[2021-11-22] MEDS: ZINC SULFATE 220 MG CAP PO SCH ×2 (08:30→20:53)
[2021-11-22] MEDS: ASCORBIC ACID 500 MG TAB PO SCH ×2 (08:30→20:24)
[2021-11-22] MEDS: LORATADINE 10 MG TAB PO SCH (08:30)
[2021-11-22] MEDS: ONDANSETRON 4 MG TAB PO SCH ×3 (08:30→23:05)
[2021-11-22] MEDS: SENNOSIDES-DOCUSATE SODIUM 1 EACH TAB PO SCH ×2 (08:30→20:25)
[2021-11-22] MEDS: CHLORTHALIDONE 25 MG TAB PO SCH (08:30)
[2021-11-22] MEDS: LOSARTAN 25 MG TAB PO SCH (08:30)
[2021-11-22] MEDS: MAGNESIUM OXIDE 400 MG TAB PO SCH ×2 (08:30→20:24)
[2021-11-22] MEDS: DEXTROAMPHETAMINE SULFATE 15 MG PO SCH ×2 (08:50→20:26)
[2021-11-22] MEDS ORDERED: LIDOCAINE 1% INJ 10MG/ML (5 ML VIAL-PF) SQ ONE (10:45)
--- NOTE | 2021-11-22 12:09 | IR ---
PICC LINE PLACEMENT: HISTORY: Infection requiring long-term antibiotic therapy PROCEDURE: Ultrasound and fluoroscopic guidance of PICC line placement. COMPLICATIONS: None ANESTHESIA: 1. 1% Lidocaine locally. FINDINGS/TECHNIQUE: The procedure was explained to the patient. The risks, complications, benefits and alternatives were discussed and any questions were answered. Informed consent was obtained. The patient was placed supine on the fluoroscopic table and prepped and draped in the usual sterile fash ion. Utilizing a 21 gauge needle and sonographic and fluoroscopic guidance, access in the left ceph alic vein was achieved and there is placement of a 0.018 guidewire. The vein is patent. A 4-F sheat h was placed over the guidewire. The guidewire and dilator were removed and a 4-F. PICC line was bruna sully through the sheath with the tip at the level of the SVC. The sheath was removed, the catheter wa s flushed and sutured into position. The patient was stable throughout the procedure and remained st able upon discharge from the Department of Radiology. The vein puncture was patent under ultrasound. A weems scale image was obtained to document patency of the vein punctured. All elements of the maximal barrier technique were utilized. FLUOROSCOPY TIME: 0.2 minute and one images submitted IMPRESSION: Successful PICC line placement under ultrasound and fluoroscopic guidance.
--- NOTE | 2021-11-22 12:59 | P.PN ---
Subjective Progress Note Date: 11/22/21 Principal diagnosis: Septic arthritis right ankle. Status post I&D right ankle. This is a 55-year-old female who is status post irrigation and debridement of the right ankle joint and application of negative pressure wound VAC by Dr. Lawrence. This is postoperative day #4 and patient is seen and evaluated at bedside today. Patient denies any new complaints today and states that her pain is well controlled. Objective - Vital Signs Vital signs: Vital Signs Temp 97.9 F 11/22/21 06:44 Pulse 67 11/22/21 06:44 Resp 17 11/22/21 06:44 BP 146/78 11/22/21 06:44 Pulse Ox 93 L 11/22/21 07:18 Intake & Output 11/21/21 11/22/21 11/22/21 18:59 06:59 18:59 Other: Voiding Method Bedpan Bedpan # Voids 5 1 # Bowel Movements 2 0 - Exam Dressing in place. Wound VAC in place. Patient able to wiggle toes without difficulty. Neurovascular status to the lower extremity is intact. - Labs CBC & Chem 7: 11/20/21 03:52 11/20/21 03:52 Labs: Microbiology - Last 24 Hours (Table) 11/18/21 09:10 Anaerobic Culture - Final Knee - Right 11/19/21 06:16 Blood Culture - Preliminary Blood No Growth after 72 hours 11/20/21 03:52 Blood Culture - Preliminary Blood No Growth after 48 hours Assessment and Plan (1) Right ankle pain Current Visit: Yes Status: Acute Code(s): M25.571 - PAIN IN RIGHT ANKLE AND JOINTS OF RIGHT FOOT SNOMED Code(s): 439187689 (2) Septic arthritis of right ankle Current Visit: Yes Status: Acute Code(s): M00.9 - PYOGENIC ARTHRITIS, UNSPECIFIED SNOMED Code(s): 9335991530741920 Plan: The clinical findings are discussed with the patient. She may be discharged to home today if cleared by medicine and infectious disease.
[2021-11-22 19:21] VITALS: RESP 18
[2021-11-22] MEDS: CYCLOBENZAPRINE 10 MG TAB PO SCH (20:24)
[2021-11-22] MEDS: rOPINIRole HCL 4 MG TABLET PO SCH (20:25)
[2021-11-22] MEDS: traZODone HCL 50 MG TAB PO SCH (20:52)
--- NOTE | 2021-11-22 21:48 | P.PN ---
Subjective Progress Note Date: 11/22/21 Principal diagnosis: Right ankle septic arthritis with MSSA bacteremia Patient is a 56-year-old female presented to the hospital with writing in pain swelling or redness in this patient who is status post I&D and drainage of the right ankle abscess and the patient also have evidence of MSSA bacteremia. On today's evaluation that is 11/22/2021, the patient remains to be afebrile, the patient pain to the right ankle area is currently controlled, patient denies chest pain or shortness of breath or cough, the patient denies nausea no vomiting no abdominal pain no diarrhea, the patient did get a PICC line placement today Objective - Vital Signs Vital signs: Vital Signs Temp 97.9 F 11/22/21 06:44 Pulse 67 11/22/21 06:44 Resp 17 11/22/21 06:44 BP 146/78 11/22/21 06:44 Pulse Ox 93 L 11/22/21 07:18 Intake & Output 11/21/21 11/22/21 11/22/21 18:59 06:59 18:59 Other: Voiding Method Bedpan # Voids 5 1 # Bowel Movements 2 0 - Exam GENERAL DESCRIPTION: A middle-aged female lying in bed in no distress RESPIRATORY SYSTEM: Unlabored breathing , decreased breath sounds at bases HEART: S1 S2 regular rate and rhythm , ABDOMEN: Soft , no tenderness EXTREMITIES: Right ankle wound is covered with a wound VAC - Labs CBC & Chem 7: 11/20/21 03:52 11/20/21 03:52 Labs: Microbiology - Last 24 Hours (Table) 11/19/21 06:16 Blood Culture - Preliminary Blood No Growth after 72 hours 11/20/21 03:52 Blood Culture - Preliminary Blood No Growth after 48 hours Assessment and Plan (1) Septic arthritis of right ankle Current Visit: Yes Status: Acute Code(s): M00.9 - PYOGENIC ARTHRITIS, UNSPECIFIED SNOMED Code(s): 1212380796959574 Plan: 1patient presented hospital with sepsis in this patient who did have a fever tachycardia elevated white count with significant pain to the right ankle area with associated swelling and a cloudy fluid likely source is the right ankle s eptic arthritis and likely from gram-positive skin cleopatra such as staph aureus. 2patient with MSSA bacteremia likely source is the right ankle septic arthritis. 3 blood cultures repeat has been negative so far 4patient did got a PICC line this morning and plan is to to continue with cefazolin 2 g every 8 hours 6 weeks, right ankle wound care to be continued with wound VAC black foam continuous pressure 125 mmHg to be changed monday and a close outpatient follow-up Time with Patient: Less than 30
[2021-11-23] MEDS: MAGNESIUM OXIDE 400 MG TAB PO SCH (09:02)
[2021-11-23] MEDS: ZINC SULFATE 220 MG CAP PO SCH (09:02)
[2021-11-23] MEDS: CHLORTHALIDONE 25 MG TAB PO SCH (09:02)
[2021-11-23] MEDS: METOPROLOL TARTRATE 50 MG TAB PO SCH (09:02)
[2021-11-23] MEDS: SENNOSIDES-DOCUSATE SODIUM 1 EACH TAB PO SCH (09:02)
[2021-11-23] MEDS: LORATADINE 10 MG TAB PO SCH (09:02)
[2021-11-23] MEDS: ONDANSETRON 4 MG TAB PO SCH ×2 (09:02→17:40)
[2021-11-23] MEDS: FAMOTIDINE 20 MG TAB PO SCH (09:02)
[2021-11-23] MEDS: PILOCARPINE 5 MG TAB PO SCH ×2 (09:02→17:40)
[2021-11-23] MEDS: VERAPAMIL SR 120 MG TABLET.ER PO SCH (09:02)
[2021-11-23] MEDS: ASCORBIC ACID 500 MG TAB PO SCH (09:02)
[2021-11-23] MEDS: LOSARTAN 25 MG TAB PO SCH (09:03)
[2021-11-23] MEDS: HEPARIN SODIUM,PORCINE/PF 5,000 UNIT/0.5 ML SYRINGE SQ SCH (09:03)
[2021-11-23] MEDS: DEXTROAMPHETAMINE SULFATE 15 MG PO SCH (09:03)
[2021-11-23] MEDS: HYDROCORTISONE SUCCINATE 100 MG/2 ML VIAL IV SCH ×2 (09:55→18:37)
--- NOTE | 2021-11-23 11:20 | P.PN ---
Subjective Progress Note Date: 11/23/21 Principal diagnosis: Right ankle septic arthritis with MSSA bacteremia Patient is a 56-year-old female presented to the hospital with writing in pain swelling or redness in this patient who is status post I&D and drainage of the right ankle abscess and the patient also have evidence of MSSA bacteremia. On today's evaluation that is 11/23/2021, the patient denies any fever or any chills, the patient pain to the right ankle area is currently controlled, patient denies chest pain or shortness of breath or cough, the patient denies nausea no vomiting no abdominal pain no diarrhea, the patient currently waiting for outpatient antibiotic and wound VAC arrangement before discharge Objective - Vital Signs Vital signs: Vital Signs Temp 98.6 F 11/23/21 08:00 Pulse 71 11/23/21 08:00 Resp 18 11/23/21 02:00 BP 134/82 11/23/21 08:00 Pulse Ox 98 11/23/21 08:00 Intake & Output 11/22/21 11/23/21 11/23/21 18:59 06:59 18:59 Intake Total 550 Balance 550 Intake: Intake, IV Titration 50 Amount ceFAZolin 2 gm In Sodium 50 Chloride 0.9% 50 ml @ 100 mls/hr IVPB Q8H [facility] Rx#: [id number] Oral 500 Other: Voiding Method Bedpan Bedside Commode # Voids 2 4 - Exam GENERAL DESCRIPTION: A middle-aged female lying in bed in no distress RESPIRATORY SYSTEM: Unlabored breathing , decreased breath sounds at bases HEART: S1 S2 regular rate and rhythm , ABDOMEN: Soft , no tenderness EXTREMITIES: Right ankle wound is covered with a wound VAC - Labs CBC & Chem 7: 11/20/21 03:52 11/20/21 03:52 Labs: Microbiology - Last 24 Hours (Table) 11/19/21 06:16 Blood Culture - Preliminary Blood No Growth after 96 hours 11/20/21 03:52 Blood Culture - Preliminary Blood No Growth after 72 hours 11/18/21 09:10 Anaerobic Culture - Final Knee - Right Assessment and Plan (1) Septic arthritis of right ankle Current Visit: Yes Status: Acute Code(s): M00.9 - PYOGENIC ARTHRITIS, UNSPECIFIED SNOMED Code(s): 5517808366607430 Plan: 1patient presented hospital with sepsis in this patient who did have a fever tachycardia elevated white count with significant pain to the right ankle area with associated swelling and a cloudy fluid likely source is the right ankle septic arthritis and likely from gram-positive skin cleopatra such as staph aureus. 2patient with MSSA bacteremia likely source is the right ankle septic arthritis. 3 blood cultures repeat has been negative so far 4patient did got a PICC line , plan is to to continue with cefazolin 2 g every 8 hours 6 weeks, right ankle wound care to be continued with wound VAC black foam continuous pressure 125 mmHg to be changed monday and weekly monitoring of CRP and sed rate advised to follow-up in the wound care center next week Time with Patient: Less than 30
--- NOTE | 2021-11-23 12:07 | P.PN ---
Subjective Progress Note Date: 11/22/21 HISTORY OF PRESENT ILLNESS This is a 55-year-old female patient of Dr. Pak with past medical history of fibromyalgia, Sjogren syndrome, degenerative disc disease, MS, migraine headaches. patient presented to the emergency department at [facility] with complaint of severe pain in the right ankle area since Monday evening, patient did not answer her phone call today the family found her on the floor which patient not quite sure how long was down on the floor for does not remember the circumstances well did not pass out. EMS ended up bringing a Chin to the emergency department at [facility] where was seen and evaluated found to have significantly and large swelling tender and hot joint at the time. Ended up going for x-ray showed hardware of the fibia of right sidewith significant reactive osteomyelitis around the hardware with significant swelling and change in the joint. With other testing included elevated white blood cell, sed rate 94, CK was 1225 and C-reactive protein of 9.0. COVID-19 and influenza were negative. With above problem patient has high suspicion for septic joint, was started on IV vancomycin and Zosyn patient be seen infectious disease and orthopedic might drained the joint at this point for culture and management. 11/18: Patient went to the OR today for I&D of the right ankle with Dr. Lawrence. Patient only has IV access in her right breast and midline will be ordered. Patient has been afebrile, heart rate 94, blood pressure 138/81, pulse ox 91-95% on 2 L nasal cannula. Right lower extremity ultrasound negative for DVT. Repeat creatinine 1.08. Synovial fluid was cloudy, RBCs 53,500, nucleated cells 262,500, probably nuclear 79%, mononuclear 21%. 11/19: Yesterday, patient underwent open irrigation and debridement with removal of pus, devitalized soft tissue and intra-articular presumably infected bone fra gments. Wound VAC was applied. Patient is to be seen by Dr. Mendez. She is currently on IV antibiotics with Kefzol. Midline was placed yesterday as patient only had IV access in her breast. Blood culture and ankle cultures are showing presumptive staph aureus. She has been afebrile, heart rate 81, blood pressure 90/53, pulse ox 99% on 2 L nasal cannula. Repeat blood work reveals WBC 9.4, hemoglobin 7.1, platelet count 266. Potassium 2.8 and will be replaced. Sodium 135, BUN 19 and creatinine 0.84. Blood sugar 128. Calcium 7.7. Liver function tests were normal. CK 239, C-reactive protein 22.4. Albumin 2.6. Patient shows no sign of active bleeding. Repeat blood work ordered for tomorrow. Daughter Grace has been updated over the phone. Patient plans to return home with the help of her mother and her daughter to do IV antibiotics at home. receivable manager is following. Anticipate probable discharge on Monday. 11/20: Patient's doing okay, no lightheadedness and dizziness no fever no chills, no nausea no diarrhea, appetite and fluid intake is good, wound VAC is ongoing leg swelling is improved on the right leg, patient does not have significant edema except on the toes, wound is surgically dressed, with coban wrap, went dissipating discharge by Monday, she does have right ankle abscess, with evidence of MSSA bacteremia. On cefazolin 2 g, every 8 hours, 11/21: Patient required in the last night, we'll going to increase trazodone 250 mg daily, to avoid giving her the Ambien routinely at home, patient has less swelling in the ankle and the foot, MSSA as dictated above, PICC line to be done in the morning, with discharge planning whether to be infused home or outpatient in the infusion center no nausea no vomiting no diarrhea, no fever no chills vitals are stable 11/22: Patient is scheduled for PICC line insertion today. Dr. Mendez is recommended Kefzol 2 g IV piggyback every 8 hours for 6 weeks. Patient will be discharged once all arrangements are completed. Plan is for patient to be discharged with a wound VAC as well. REVIEW OF SYSTEMS Constitutional: Reports fever, reports chills, no night sweats. No weight change. No weakness, fatigue or lethargy. No daytime sleepiness. EENT: No headache. No blurred vision or double vision, no loss of vision. No loss of Hearing, no ringing in the ears, no dizziness. No nasal drainage or congestion. No epistaxis. No sore throat. Lungs: No shortness of breath, cough, no sputum production. No wheezing. Cardiovascular: No chest pain, no lower extremity edema. No palpitations. No paroxysmal nocturnal dyspnea. No orthopnea. No lightheadedness or dizziness. No syncopal episodes. Abdominal: Denies lower abdominal pain. No nausea, vomiting. Reports diarrhea. No constipation. No bloody or tarry stools.. No loss of appetite. Genitourinary: No dysuria, increased frequency, urgency. No urinary retention. Musculoskeletal: No myalgias. No muscle weakness, reported gait dysfunction, no frequent falls. No back pain. No neck pain. right foot pain and discomfort with wound VAC. Integumentary: No wounds, no lesions. No rash or pruritus. No unusual bruising. No change in hair or nails. Neurologic: No aphasia. No facial droop. No change in mentation. No head injury. No headache. No paralysis. No paresthesia. Psychiatric: No depression. No anxiety. No mood swings. Endocrine: No abnormal blood sugars. No weight change. No excessive sweating or thirst. No cold intolerance. PHYSICAL EXAMINATION Gen: This is a 55-year-old female. She is resting in bed and appears to be comfortable and in no acute distress. HEENT: Head is atraumatic, normocephalic. Pupils equal, round. Sclerae is anicteric. NECK: Supple. No JVD. No lymphadenopathy. No thyromegaly. LUNGS: Clear to auscultation. No wheezes or rhonchi. No intercostal retractions. HEART: Regular rate and rhythm. No murmur. ABDOMEN: Soft. Bowel sounds are present. No masses. Lower abdominaltenderness. EXTREMITIES: trace edema, right ankle wound with wound VAC in place. NEUROLOGICAL: Patient is awake, alert and oriented x3. Cranial nerves 2 through 12 are grossly intact. ASSESSMENT AND PLAN 1. Septic joint and osteoarthritis with wound culture is presumptive for staph aureus. Patient is currently on Kefzol managed by Dr. Mendez. Blood cultures also positive. Patient has midline in place for IV access.PICC line ordered for 6 week course of antibiotic. 2. mild rhabdomyolysis, resolving. 3. possible adrenal insufficiency with slight reaction to the current infection and somebody has been on steroid for long time, switch patient to hydrocortisone at this point and being might be aggressive with it. 4. Hypertension. Continue verapamil 120 mg daily, losartan 100 mg daily 5. Multiple sclerosis, stable without exacerbation. Continue Flexeril 10 mg 3 times daily as needed and 10 mg at bedtime. 6. hyperglycemia: With the current dose of steroid patient will be on Accu-Chek with sliding scales coverage. 7. fall with no sign of syncope: No other injury with probably patient could not walk and stand up because of the severity of the infection and the ankle area. 8. Restless leg syndrome. Continue Requip 10 mg at bedtime. 9. Chronic anemia. continue iron supplement repeat CBC daily basis. 10. Sjogren's, stable. Continue pilocarpine 5 mg 3 times daily. 11. Generalized anxiety disorder, insomnia. Continue Ambien 10 mg at bedtime. 12. DVT prophylaxis. Heparin subcu. 13. GERD and GI prophylaxis. Protonix. CODE STATUS: Full code. DISCHARGE PLAN Most likely home with IV antibiotics Impression and plan of care have been directed as dictated by the signing physician. Cici Chatman nurse practitioner acting as scribe for signing physician. Objective - Vital Signs Vital signs: Vital Signs Temp 98.6 F 11/23/21 08:00 Pulse 71 11/23/21 08:00 Resp 18 11/23/21 02:00 BP 134/82 11/23/21 08:00 Pulse Ox 98 11/23/21 08:00 Intake & Output 11/22/21 11/23/21 11/23/21 18:59 06:59 18:59 Intake Total 550 Balance 550 Intake: Intake, IV Titration 50 Amount ceFAZolin 2 gm In Sodium 50 Chloride 0.9% 50 ml @ 100 mls/hr IVPB Q8H [facility] Rx#: [id number] Oral 500 Other: Voiding Method Bedpan Bedside Commode # Voids 2 4 - Labs CBC & Chem 7: 11/20/21 03:52 11/20/21 03:52 Labs: Microbiology - Last 24 Hours (Table) 11/19/21 06:16 Blood Culture - Preliminary Blood No Growth after 96 hours 11/20/21 03:52 Blood Culture - Preliminary Blood No Growth after 72 hours 11/18/21 09:10 Anaerobic Culture - Final Knee - Right
--- NOTE | 2021-11-23 13:12 | P.PN ---
Subjective Progress Note Date: 11/23/21 This is a 55-year-old female who is status post irrigation and debridement of the right ankle joint and application of negative pressure wound VAC by Dr. Lawrence. Patient is seen and evaluated at bedside today. Patient denies any new complaints today and states that her pain is well controlled. Objective - Vital Signs Vital signs: Vital Signs Temp 98.6 F 11/23/21 08:00 Pulse 71 11/23/21 08:00 Resp 18 11/23/21 02:00 BP 134/82 11/23/21 08:00 Pulse Ox 98 11/23/21 08:00 Intake & Output 11/22/21 11/23/21 11/23/21 18:59 06:59 18:59 Intake Total 550 Balance 550 Intake: Intake, IV Titration 50 Amount ceFAZolin 2 gm In Sodium 50 Chloride 0.9% 50 ml @ 100 mls/hr IVPB Q8H [facility] Rx#: [id number] Oral 500 Other: Voiding Method Bedpan Bedside Commode Bedside Commode # Voids 2 4 - Exam On exam dressing is clean, dry and intact with wound VAC present. Sensation intact. Patient is able to wiggle the toes of the right foot. The right lower extremity is warm and well perfused. - Labs CBC & Chem 7: 11/20/21 03:52 11/20/21 03:52 Labs: Microbiology - Last 24 Hours (Table) 11/19/21 06:16 Blood Culture - Preliminary Blood No Growth after 96 hours 11/20/21 03:52 Blood Culture - Preliminary Blood No Growth after 72 hours 11/18/21 09:10 Anaerobic Culture - Final Knee - Right Assessment and Plan Assessment: Right ankle joint sepsis Plan: 1. Blood cultures are negative. Wound cultures show staph aureus. 2. IV antibiotics and wound care per infectious disease. 3. Patient is cleared for discharge from an orthopedic standpoint.
[2021-11-23 16:53] VITALS: BP 142/87; PULSE 76; TEMP 98.4
--- NOTE | 2021-11-25 09:17 | CDI ---
Documentation Clarification Form Date: 11/25/2021 09:09:11 AM From: Esteban Hoover Admit Date: 11/17/2021 04:53:00 PM Patient Name: Sari Irizarry Visit Number: [id number] Discharge Date: 11/23/2021 07:07:00 PM ATTENTION: The Clinical Documentation Specialists (CDI) and [facility] Coding Staff appreciate your assistance in clarifying documentation. Please respond to the clarification below the line at the bottom and electronically sign. The CDI & [facility] Coding staff will review the response and follow-up if needed. Please note: Queries are made part of the Legal Health Record. If you have any questions, please contact the author of this message via ITS. Dr. Chino Mcmanus debridement is documented in your OR report of 11/18/21. Additional clarification regarding the procedure is requested. History/Risk Factors: osteomyelitis of prior R ankle fixation Clinical Indicators: MSSA sepsis Treatment: debridement Please clarify the type of procedure performed: [x ] Excisional debridement (the removal of necrotic, devitalized tissue or slough by means of cutting away of tissue) [ ] Non-excisional debridement (the removal of necrotic, devitalized tissue or slough by means of flushing, brushing, or washing. (Irrigation) [ ] Other; please specify [ ] Unable to determine MTDD
[2021-12-15] MEDS ORDERED: ERGOCALCIFEROL 1,250 MCG (50,000 IU) CAPSULE PO SCH (09:00)
== END 2021-11-23 19:07 | disposition home health service (06) | DRG 492 ==
LOC: EC 12:50 → 4SSUR 16:53
PROVIDERS: ADMIT Internal Medicine Geriatric Medicine; ATTEND Internal Medicine Geriatric Medicine
PROC: 0S9F3ZZ Drainage of Right Ankle Joint, Percutaneous Approach (ICD-10-PCS; 2021-11-17)
PROC: 05HF33Z Insertion of Infusion Device into Left Cephalic Vein, Percutaneous Approach (ICD-10-PCS; 2021-11-18)
PROC: 0SBF0ZZ Excision of Right Ankle Joint, Open Approach (ICD-10-PCS; principal; 2021-11-18 10:00)
PROC: 02HV33Z Insertion of Infusion Device into Superior Vena Cava, Percutaneous Approach (ICD-10-PCS; 2021-11-22)
DX: T84.69XA Infection and inflammatory reaction due to internal fixation device of other site, initial encounter (principal); A41.01 Sepsis due to Methicillin susceptible Staphylococcus aureus; L02.415 Cutaneous abscess of right lower limb; D84.9 Immunodeficiency, unspecified; E87.1 Hypo-osmolality and hyponatremia; M00.9 Pyogenic arthritis, unspecified; M62.82 Rhabdomyolysis; M86.8X9 Other osteomyelitis, unspecified sites; D64.9 Anemia, unspecified; F41.1 Generalized anxiety disorder; G25.81 Restless legs syndrome; G35 Multiple sclerosis; G47.00 Insomnia, unspecified; Z20.822 Contact with and (suspected) exposure to COVID-19; I25.10 Atherosclerotic heart disease of native coronary artery without angina pectoris; M35.00 Sjogren syndrome, unspecified; M79.7 Fibromyalgia; N18.9 Chronic kidney disease, unspecified; I12.9 Hypertensive chronic kidney disease with stage 1 through stage 4 chronic kidney disease, or unspecified chronic kidney disease; M19.90 Unspecified osteoarthritis, unspecified site; T38.0X5A Adverse effect of glucocorticoids and synthetic analogues, initial encounter; R73.9 Hyperglycemia, unspecified; Z63.4 Disappearance and death of family member; Z79.2 Long term (current) use of antibiotics; Z79.52 Long term (current) use of systemic steroids; Z79.899 Other long term (current) drug therapy; Z80.8 Family history of malignant neoplasm of other organs or systems; Z82.49 Family history of ischemic heart disease and other diseases of the circulatory system; Z82.5 Family history of asthma and other chronic lower respiratory diseases; Z83.3 Family history of diabetes mellitus; Z90.710 Acquired absence of both cervix and uterus
CPT/HCPCS: 36410; 36415; 36573; 71046; 76937; 80053; 81001; 82550; 82565; 83605; 84132; 84550; 85025; 85027; 85652; 86140; 87040; 87070; 87075; 87077; 87102; 87186; 87205; 87502; 87635; 88304; 88311; 89050; 93005; 94760; 96361; 96365; 96366; 96374; 96375; 99285

== ENCOUNTER 2022-02-11 18:37 | Inpatient (IN) | payer MEDICARE ==
[2022-02-11] MEDS ORDERED: SODIUM CHLORIDE 0.9% 1,000 ML IV STA (18:56)
--- NOTE | 2022-02-11 18:57 | ED ---
General Adult HPI - General Chief complaint: Arrhythmia/Palpitations Stated complaint: hypertension Time Seen by Provider: 02/11/22 18:55 Source: patient Mode of arrival: wheelchair Limitations: no limitations - History of Present Illness Initial comments: Patient presents to the ED for evaluation, stating that her home nurse told her to be evaluated because she had an elevated heart rate earlier today. Patient also states that she feels dehydrated. Patient states that she has not made much urine today, and she states that her mouth is dry. Patient states that she has been drinking fluids as per usual. Patient denies having any pain, fever or chills, headache, focal numbness/weakness/neuro deficit, visual changes, chest pain or pressure, dyspnea, cough or cold symptoms, palpitations, dizziness, abdominal pain, nausea/vomiting/diarrhea, bloody or melanotic stool, dysuria/hematuria/urinary frequency, leg or calf swelling or pain, or any other symptoms or complaints. - Related Data Home Medications Medication Instructions Recorded Confirmed Cyclobenzaprine [Flexeril] 10 mg PO HS 09/27/17 11/17/21 Pilocarpine HCl [Salagen] 5 mg PO TID 09/27/17 11/17/21 rOPINIRole HCL [Requip] 10 mg PO HS 09/27/17 11/17/21 Dextroamphetamine Sulfate 15 mg PO BID 12/20/18 11/17/21 [Dexedrine] Ascorbic Acid [Vitamin C] 500 mg PO BID 11/25/19 11/17/21 Cetirizine HCl 10 mg PO DAILY 03/23/21 11/17/21 Diclofenac Sodium Gel [Voltaren 2 gm TOPICAL BID PRN 03/23/21 11/17/21 Gel] Verapamil HCl [Verapamil ER] 120 mg PO DAILY 03/23/21 11/17/21 Zolpidem [Ambien] 10 mg PO HS PRN 03/23/21 11/17/21 ondansetron HCL [Zofran] 8 mg PO TID 03/23/21 11/17/21 predniSONE 10 mg PO TID PRN 03/23/21 11/17/21 Azilsartan Med/Chlorthalidone 1 tab PO DAILY 11/17/21 11/17/21 [Edarbyclor 40-25 mg Tablet] Elderberry Fruit and Flower [Black 2 cap PO W/SUPPER 11/17/21 11/17/21 Elderberry 575 mg Cap] Ergocalciferol (Vitamin D2) 1,250 mcg PO Q30D 11/17/21 11/17/21 [Drisdol (50,000 Iu)] Famotidine 40 mg PO DAILY 11/17/21 11/17/21 Magnesium Oxide [Mag-Ox] 400 mg PO BID 11/17/21 11/17/21 Metoprolol Tartrate [Lopressor] 50 mg PO BID 11/17/21 11/17/21 Zinc 50 mg PO BID 11/17/21 11/17/21 traZODone HCL [Desyrel] 100 mg PO HS 11/17/21 11/17/21 Previous Rx's Medication Instructions Recorded Acetaminophen Tab [Tylenol] 1,000 mg PO Q6HR PRN tab 11/22/21 HYDROcodone/APAP 7.5-325MG [Leon 1 each PO Q6H PRN #12 tab 11/22/21 7.5-325] Sennosides-Docusate Sodium 1 each PO BID tab 11/22/21 [Senokot-S] ceFAZolin [Kefzol] 2 gm IVPB Q8HR #126 dose 11/22/21 Allergies Allergy/AdvReac Type Severity Reaction Status Date / Time aspirin AdvReac Abdominal Verified 02/11/22 18:43 Pain Review of Systems ROS Statement: Those systems with pertinent positive or pertinent negative responses have been documented in the HPI. ROS Other: All systems not noted in ROS Statement are negative. Past Medical History Past Medical History: Coronary Artery Disease (CAD), Chest Pain / Angina, Fibromyalgia, Musculoskeletal Disorder, Renal Disease Additional Past Medical History / Comment(s): Migraines, Shrgren syndrome, DDD, MS, fibromyalgia, Right BBB, CKD, Tarsal tunnel syndrome, vertigo History of Any Multi-Drug Resistant Organisms: ESBL Date of last positivie culture/infection: 03/22/21 MDRO Source:: ESBL URINE Past Surgical History: Appendectomy, Hysterectomy, Orthopedic Surgery Additional Past Surgical History / Comment(s): right ankle, abdominal lap aroscopies, Prexacral Neurectomy, Cryosurgery, Past Anesthesia/Blood Transfusion Reactions: No Reported Reaction Past Psychological History: No Psychological Hx Reported Smoking Status: Never smoker Past Alcohol Use History: None Reported Past Drug Use History: None Reported - Past Family History Father Family Medical History: AICD/Pacemaker, Congestive Heart Failure (CHF), COPD, Diabetes Mellitus, Myocardial Infarction ([place]) Additional Family Medical History / Comment(s): Father at age 83 in his sleep. He has history of AICD. Mother Family Medical History: Hypertension Additional Family Medical History / Comment(s): Mother is alive at age 77 with history of hypertension and bronchiectasis. Patient has 2 brothers with no m ajor medical problems. Patient does not have any sisters. Patient is one daughter with no major medical problems. General Exam Limitations: no limitations General appearance: alert, in no apparent distress Head exam: Present: atraumatic, normocephalic Eye exam: Present: normal appearance, EOMI ENT exam: Present: mucous membranes dry Neck exam: Present: other (Trachea is in midline) Respiratory exam: Present: normal lung sounds bilaterally. Absent: respiratory distress, wheezes, rales, rhonchi, stridor Cardiovascular Exam: Present: normal rhythm, tachycardia, normal heart sounds, other (Normal radial pulses bilaterally) GI/Abdominal exam: Present: soft. Absent: distended, tenderness, guarding Extremities exam: Present: other (Negative Homans sign bilaterally). Absent: tenderness, pedal edema, calf tenderness Neurological exam: Present: alert, oriented X3. Absent: motor sensory deficit Psychiatric exam: Present: normal affect, normal mood Skin exam: Present: warm, dry, intact, normal color Course Vital Signs 02/11/22 02/11/22 18:39 21:24 Temperature 98.2 F Pulse Rate 122 H 103 H Respiratory 18 16 Rate Blood Pressure 77/55 97/49 O2 Sat by Pulse 96 99 Oximetry - Reevaluation(s) Reevaluation #1: 02/11/22 20:32 Case, H&P, test results and ED management were discussed with SPACE TECHNOLOGIST Ambreen Blackwell. She accepts hospital admission on behalf of herself and Dr. Saunders. She has no further recommendations at this time. 02/11/22 20:41 Patient denies development of any new symptoms while in the ED. Patient is aware of her test results, and she agrees with hospital admission at this time. Patient remains alert and breathing comfortably. EKG Findings - EKG Comments: EKG Findings:: Sinus tachycardia, ventricular rate of 114 bpm, no ectopy, right bundle branch block, normal IA interval, QRS duration of 121 ms, normal QT interval, no significant change when compared to 11/17/2021 EKG Medical Decision Making - Medical Decision Making I suspect that the patient's sinus tachycardia and acute renal insufficiency are likely due to dehydration. Patient has been treated with IV fluids in the ED, and will continue IV fluid hydration. Patient's bladder scan shows less than 100 mL of fluid. Patient's troponin is minimally elevated, and patient denies having any chest pain or dyspnea. I think that the patient's troponin is likely elevated due to her acute kidney injury, and I do not suspect myocardial infarction. Still, will trend patient's troponins and continue to keep her on the radiographer cardiac catheterization. Case was discussed with SPACE TECHNOLOGIST Ambreen Blackwell, and she has accepted hospital admission on behalf of herself and Dr. Saunders. - Lab Data Result diagrams: 02/11/22 19:48 02/11/22 19:48 Lab Results 02/11/22 02/11/22 02/11/22 Range/Units 19:48 19:48 19:48 WBC 12.4 H (3.8-10.6) k/uL RBC 3.57 L (3.80-5.40) m/uL Hgb 11.5 (11.4-16.0) gm/dL Hct 34.5 (34.0-46.0) % MCV 96.6 (80.0-100.0) fL MCH 32.2 (25.0-35.0) pg MCHC 33.3 (31.0-37.0) g/dL RDW 14.6 (11.5-15.5) % Plt Count 531 H (150-450) k/uL MPV 7.0 Neutrophils % 75 % Lymphocytes % 16 % Monocytes % 7 % Eosinophils % 1 % Basophils % 1 % Neutrophils # 9.3 H (1.3-7.7) k/uL Lymphocytes # 1.9 (1.0-4.8) k/uL Monocytes # 0.9 (0-1.0) k/uL Eosinophils # 0.1 (0-0.7) k/uL Basophils # 0.1 (0-0.2) k/uL PT 11.2 (9.0-12.0) sec INR 1.0 (<1.2) APTT 21.6 L (22.0-30.0) sec Sodium 137 (137-145) mmol/L Potassium 5.0 (3.5-5.1) mmol/L Chloride 101 (98-107) mmol/L Carbon Dioxide 21 L (22-30) mmol/L Anion Gap 15 mmol/L BUN 61 H (7-17) mg/dL Creatinine 3.15 H (0.52-1.04) mg/dL Est GFR (CKD-EPI)AfAm 18 (>60 ml/min/1.73 sqM) Est GFR (CKD-EPI)NonAf 16 (>60 ml/min/1.73 sqM) Glucose 120 H (74-99) mg/dL Calcium 11.1 H (8.4-10.2) mg/dL Magnesium 1.9 (1.6-2.3) mg/dL Total Bilirubin 0.5 (0.2-1.3) mg/dL AST 30 (14-36) U/L ALT 24 (4-34) U/L Alkaline Phosphatase 138 H (38-126) U/L Troponin I (0.000-0.034) ng/mL Total Protein 8.5 H (6.3-8.2) g/dL Albumin 5.0 (3.5-5.0) g/dL TSH 6.140 H (0.465-4.680) mIU/L 02/11/22 Range/Units 19:48 WBC (3.8-10.6) k/uL RBC (3.80-5.40) m/uL Hgb (11.4-16.0) gm/dL Hct (34.0-46.0) % MCV (80.0-100.0) fL MCH (25.0-35.0) pg MCHC (31.0-37.0) g/dL RDW (11.5-15.5) % Plt Count (150-450) k/uL MPV Neutrophils % % Lymphocytes % % Monocytes % % Eosinophils % % Basophils % % Neutrophils # (1.3-7.7) k/uL Lymphocytes # (1.0-4.8) k/uL Monocytes # (0-1.0) k/uL Eosinophils # (0-0.7) k/uL Basophils # (0-0.2) k/uL PT (9.0-12.0) sec INR (<1.2) APTT (22.0-30.0) sec Sodium (137-145) mmol/L Potassium (3.5-5.1) mmol/L Chloride (98-107) mmol/L Carbon Dioxide (22-30) mmol/L Anion Gap mmol/L BUN (7-17) mg/dL Creatinine (0.52-1.04) mg/dL Est GFR (CKD-EPI)AfAm (>60 ml/min/1.73 sqM) Est GFR (CKD-EPI)NonAf (>60 ml/min/1.73 sqM) Glucose (74-99) mg/dL Calcium (8.4-10.2) mg/dL Magnesium (1.6-2.3) mg/dL Total Bilirubin (0.2-1.3) mg/dL AST (14-36) U/L ALT (4-34) U/L Alkaline Phosphatase (38-126) U/L Troponin I 0.040 H* (0.000-0.034) ng/mL Total Protein (6.3-8.2) g/dL Albumin (3.5-5.0) g/dL TSH (0.465-4.680) mIU/L - Radiology Data Chest x-ray: No acute cardiopulmonary disease/process. Disposition Clinical Impression: Dehydration, Acute renal insufficiency, Elevated troponin Disposition: ADMITTED IP TO THIS [facility] Condition: Stable Is patient prescribed a controlled substance at d/c from ED?: No Time of Disposition: 20:33
[2022-02-11 19:55] LABS: Basophils # (A) 0.1 k/uL (0-0.2); Basophils % (A) 1 %; Eosinophils # (A) 0.1 k/uL (0-0.7); Eosinophils % (A) 1 %; HCT 34.5 % (34.0-46.0); HGB 11.5 gm/dL (11.4-16.0); Lymphocytes # (A) 1.9 k/uL (1.0-4.8); Lymphocytes % (A) 16 %; MCH 32.2 pg (25.0-35.0); MCHC 33.3 g/dL (31.0-37.0); MCV 96.6 fL (80.0-100.0); Monocytes # (A) 0.9 k/uL (0-1.0); Monocytes % (A) 7 %; Neutrophils # (A) 9.3 k/uL (1.3-7.7); Neutrophils % (A) 75 %; Platelet Count 531 k/uL (150-450); RBC 3.57 m/uL (3.80-5.40); RDW 14.6 % (11.5-15.5); WBC 12.4 k/uL (3.8-10.6)
[2022-02-11 20:04] LABS: Calcium 11.1 mg/dL (8.4-10.2); Magnesium 1.9 mg/dL (1.6-2.3); Total Bilirubin 0.5 mg/dL (0.2-1.3); Total Protein 8.5 g/dL (6.3-8.2)
[2022-02-11 20:10] LABS: Prothrombin Time 11.2 sec (9.0-12.0)
[2022-02-11 20:24] LABS: Partial Thromboplastin Time 21.6 sec (22.0-30.0)
[2022-02-11] MEDS ORDERED: ASPIRIN 81 MG PO STA (20:27)
--- NOTE | 2022-02-11 20:30 | XR ---
EXAMINATION TYPE: XR chest 2V DATE OF EXAM: 02/11/2022 7:15 PM COMPARISON: Chest radiographs from 11/17/2021. TECHNIQUE: XR chest 2V Frontal and lateral views of the chest. CLINICAL INDICATION:Female, 56 years old with history of dysrhythmia; FINDINGS: Lungs/Pleura: There is no evidence of pleural effusion, focal consolidation, or pneumothorax. Pulmonary vascularity: Unremarkable. Heart/mediastinum: Cardiomediastinal silhouette is enlarged and stable. Musculoskeletal: No acute osseous pathology. Mild scoliosis changes in the thoracic spine. IMPRESSION: No acute cardiopulmonary disease/process.
[2022-02-11] MEDS: SODIUM CHLORIDE 0.9% 1,000 ML IV SCH (21:24)
[2022-02-11] MEDS ORDERED: ACETAMINOPHEN TAB 500 MG TAB PO STA (21:27)
[2022-02-11] MEDS ORDERED: ONDANSETRON 4 MG/2 ML VIAL IVP STA (21:27)
[2022-02-11] MEDS ORDERED: SODIUM CHLORIDE 0.9% 1,000 ML IV ONE (21:59)
[2022-02-12] MEDS ORDERED: ZOLPIDEM 5 MG TAB PO PRN (00:37)
[2022-02-12] MEDS ORDERED: DICLOFENAC SODIUM GEL 100 GM TUBE TOPICAL PRN (00:37)
[2022-02-12] MEDS ORDERED: ONDANSETRON 4 MG TAB PO PRN (00:37)
[2022-02-12] MEDS ORDERED: CYCLOBENZAPRINE 10 MG TAB PO PRN (00:37)
[2022-02-12 08:22] LABS: Calcium 9.2 mg/dL (8.4-10.2); Magnesium 1.9 mg/dL (1.6-2.3)
[2022-02-12 08:24] LABS: Amorphous Sediment,Urine Rare /hpf; Appearance,Urine Clear (Clear); Bacteria,Urine Rare /hpf; Bilirubin,Urine Negative (Negative); Blood,Urine Negative (Negative); Color,Urine Light Yellow; Glucose,Urine (UA) Negative (Negative); Hyaline Casts,Urine 20 /lpf (0-2); Ketones,Urine 1+ (Negative); Leukocyte Esterase,Urine Large (Negative); Mucus,Urine Rare /hpf; Nitrite,Urine Negative (Negative); Protein,Urine Trace (Negative); RBC,Urine 2 /hpf (0-5); Specific Gravity,Urine 1.013 (1.001-1.035); Squamous Epithelial Cell,Urine 1 /hpf (0-4); Urobilinogen,Urine <2.0 mg/dL (<2.0); WBC,Urine 23 /hpf (0-5)
[2022-02-12 08:27] LABS: Basophils % (A) 0 %; Eosinophils % (A) 0 %; HCT 29.7 % (34.0-46.0); Hypochromasia Slight; Lymphocytes # (A) 1.4 k/uL (1.0-4.8); Lymphocytes % (A) 20 %; MCH 33.1 pg (25.0-35.0); MCHC 31.3 g/dL (31.0-37.0); Macrocytosis Moderate; Mean Platelet Volume 6.8; Monocytes # (A) 0.4 k/uL (0-1.0); Monocytes % (A) 7 %; Neutrophils # (A) 4.8 k/uL (1.3-7.7); Neutrophils % (A) 71 %; Platelet Count 396 k/uL (150-450); RBC 2.81 m/uL (3.80-5.40); RDW 14.9 % (11.5-15.5); WBC 6.8 k/uL (3.8-10.6)
[2022-02-12 08:31] LABS: HGB 9.3 gm/dL (11.4-16.0)
[2022-02-12 08:32] LABS: MCV 105.7 fL (80.0-100.0)
[2022-02-12] MEDS: SODIUM CHLORIDE 0.9% 1,000 ML IV SCH ×3 (08:49→23:33)
[2022-02-12] MEDS: Acetaminophen-Codeine 300-30mg TAB PO PRN ×3 (08:50→20:11)
[2022-02-12] MEDS: PANTOPRAZOLE 40 MG TABLET PO SCH ×2 (08:50→17:14)
[2022-02-12] MEDS: ASCORBIC ACID 500 MG TAB PO SCH ×2 (08:50→20:11)
[2022-02-12] MEDS: MAGNESIUM OXIDE 400 MG TAB PO SCH ×2 (08:50→20:12)
[2022-02-12] MEDS: HEPARIN SODIUM,PORCINE/PF 5,000 UNIT/0.5 ML SYRINGE SQ SCH ×2 (08:51→20:12)
--- NOTE | 2022-02-12 08:56 | P.HPIM ---
History of Present Illness This is a pleasant 56 years old male with past medical history of Coronary Artery Disease, Fibromyalgia, , Migraines, Sjogren syndrome, DDD, MS, Right BBB, CKD, Tarsal tunnel syndrome, vertigo Patient is having a visiting nurse will find her tachycardic with heart rate around 145, patient was asymptomatic at that time with no chest pain or dyspnea or other complaints, her nurse referred her to the emergency room. Patient also reports difficulty urinating for the last 1-2 days. No dysuria or urgency. No diarrhea or abdominal pain or vomiting. She has mild headache and postural dizziness but no weakness or numbness. She has some nausea. She denies smoking, alcohol or illicit drug. She has history of right foot ulcer that she follow up with Dr. Mendez since November. The right foot is wrapped in a dressing and patient refused to be checked out however her right leg looks also warm and swollen. Patient is tachycardic on admission 122 and hypotensive 94/71. She was also hypotensive on admission 87/47 and 77/55. showing mild leukocytosis 12.4, rest o CBC is unremarkable. INR 1.0. Creatinine is elevated 3.1, compared to baseline of 0.8-1.1. First troponin was mildly elevated at 0.04, then came back to normal at 0.03 and 0.01. TSH is high at 6.1 but normal free T4 at 1.8. EKG showing sinus tachycardia at [address]-T changes. Chest x-ray: No acute cardiopulmonary process. In the emergency room patient received 2 L of normal saline. Bladder scan injected was 76-100 Review of Systems CONSTITUTIONAL: No fever, no malaise, no fatigue. HEENT: No recent visual problems or hearing problems. Denied any sore throat. CARDIOVASCULAR: No orthopnea, PND, no palpitations, no syncope. PULMONARY: No shortness of breath, no cough, no hemoptysis. GASTROINTESTINAL: No diarrhea, no nausea, no vomiting, no abdominal pain. Normoactive bowel sounds. NEUROLOGICAL: No headaches, no weakness, no numbness. HEMATOLOGICAL: Denies any bleeding or petechiae. GENITOURINARY: Denies any burning micturition, frequency, or urgency. MUSCULOSKELETAL/RHEUMATOLOGICAL: Denies any joint pain, swelling, or any muscle pain. ENDOCRINE: Denies any polyuria or polydipsia. Past Medical History Past Medical History: Coronary Artery Disease (CAD), Chest Pain / Angina, Fibromyalgia, Musculoskeletal Disorder, Renal Disease Additional Past Medical History / Comment(s): Migraines, Shrgren syndrome, DDD, MS, fibromyalgia, Right BBB, CKD, Tarsal tunnel syndrome, vertigo History of Any Multi-Drug Resistant Organisms: ESBL Date of last positivie culture/infection: 03/22/21 MDRO Source:: ESBL URINE Past Surgical History: Appendectomy, Hysterectomy, Orthopedic Surgery Additional Past Surgical History / Comment(s): right ankle, abdominal laparoscopies, Prexacral Neurectomy, Cryosurgery, Past Anesthesia/Blood Transfusion Reactions: No Reported Reaction Past Psychological History: No Psychological Hx Reported Smoking Status: Never smoker Past Alcohol Use History: None Reported Past Drug Use History: None Reported - Past Family History Father Family Medical History: AICD/Pacemaker, Congestive Heart Failure (CHF), COPD, Diabetes Mellitus, Myocardial Infarction ([place]) Additional Family Medical History / Comment(s): Father at age 83 in his sleep. He has history of AICD. Mother Family Medical History: Hypertension Additional Family Medical History / Comment(s): Mother is alive at age 77 with history of hypertension and bronchiectasis. Patient has 2 brothers with no major medical problems. Patient does not have any sisters. Patient is one daughter with no major medical problems. Medications and Allergies Home Medications Medication Instructions Recorded Confirmed Type Cyclobenzaprine [Flexeril] 10 mg PO HS 09/27/17 02/11/22 History Pilocarpine HCl [Salagen] 5 mg PO TID 09/27/17 02/11/22 History rOPINIRole HCL [Requip] 10 mg PO HS 09/27/17 02/11/22 History Dextroamphetamine Sulfate 15 mg PO BID 12/20/18 02/11/22 History [Dexedrine] Ascorbic Acid [Vitamin C] 500 mg PO BID 11/25/19 02/11/22 History Cetirizine HCl 10 mg PO DAILY 03/23/21 02/11/22 History Diclofenac Sodium Gel [Voltaren 2 gm TOPICAL BID PRN 03/23/21 02/11/22 History Gel] Verapamil HCl [Verapamil ER] 120 mg PO DAILY 03/23/21 02/11/22 History Zolpidem [Ambien] 10 mg PO HS PRN 03/23/21 02/11/22 History ondansetron HCL [Zofran] 8 mg PO TID PRN 03/23/21 02/11/22 History Azilsartan Med/Chlorthalidone 1 tab PO DAILY 11/17/21 02/11/22 History [Edarbyclor 40-25 mg Tablet] Elderberry Fruit and Flower [Black 2 cap PO W/SUPPER 11/17/21 02/11/22 History Elderberry 575 mg Cap] Ergocalciferol (Vitamin D2) 1,250 mcg PO Q30D 11/17/21 02/11/22 History [Drisdol (50,000 Iu)] Magnesium Oxide [Mag-Ox] 400 mg PO BID 11/17/21 02/11/22 History Metoprolol Tartrate [Lopressor] 50 mg PO BID 11/17/21 02/11/22 History Zinc 50 mg PO BID 11/17/21 02/11/22 History traZODone HCL [Desyrel] 100 mg PO HS 11/17/21 02/11/22 History Acetaminophen-Codeine 300-30mg 1 tab PO Q6H PRN 02/11/22 02/11/22 History [Tylenol w/codeine #3] Pantoprazole [Protonix] 40 mg PO BID 02/11/22 02/11/22 History Allergies Allergy/AdvReac Type Severity Reaction Status Date / Time aspirin AdvReac Abdominal Verified 02/11/22 22:19 Pain Physical Exam Vitals: Vital Signs Temp Pulse Resp BP Pulse Ox 02/12/22 06:47 98.8 F 122 H 16 94/71 94 L 02/12/22 02:03 110 H 16 95/72 100 02/11/22 23:14 100 16 114/72 99 02/11/22 22:25 95 16 105/68 100 02/11/22 22:06 107 H 16 87/47 100 02/11/22 21:24 103 H 16 97/49 99 02/11/22 18:39 98.2 F 122 H 18 77/55 96 Intake and Output 02/11/22 02/11/22 02/12/22 14:59 22:59 06:59 Other: Weight 81.647 kg GENERAL: The patient is alert and oriented x3, not in any acute distress. Well developed, well nourished. HEENT: Pupils are round and equally reacting to light. EOMI. No scleral icterus. No conjunctival pallor. Normocephalic, atraumatic. No pharyngeal erythema. No thyromegaly. CARDIOVASCULAR: S1 and S2 present. No murmurs, rubs, or gallops. PULMONARY: Chest is clear to auscultation, no wheezing or crackles. ABDOMEN: Soft, nontender, nondistended, normoactive bowel sounds. No palpable organomegaly. MUSCULOSKELETAL: No joint swelling or deformity. -EXTREMITIES: No cyanosis, clubbing, or pedal edema. Right foot dressing (patient refused to unwrap the dressing) with right leg swelling and home and erythematous NEUROLOGICAL: Gross neurological examination did not reveal any focal deficits. SKIN: No rashes. No petechiae Results CBC & Chem 7: 02/12/22 07:42 02/12/22 07:42 Labs: Abnormal Lab Results - Last 24 Hours (Table) 02/11/22 02/11/22 02/11/22 Range/Units 19:48 19:48 19:48 WBC 12.4 H (3.8-10.6) k/uL RBC 3.57 L (3.80-5.40) m/uL Plt Count 531 H (150-450) k/uL Neutrophils # 9.3 H (1.3-7.7) k/uL APTT 21.6 L (22.0-30.0) sec Carbon Dioxide 21 L (22-30) mmol/L BUN 61 H (7-17) mg/dL Creatinine 3.15 H (0.52-1.04) mg/dL Glucose 120 H (74-99) mg/dL Calcium 11.1 H (8.4-10.2) mg/dL Alkaline Phosphatase 138 H (38-126) U/L Troponin I (0.000-0.034) ng/mL Total Protein 8.5 H (6.3-8.2) g/dL TSH 6.140 H (0.465-4.680) mIU/L 02/11/22 Range/Units 19:48 WBC (3.8-10.6) k/uL RBC (3.80-5.40) m/uL Plt Count (150-450) k/uL Neutrophils # (1.3-7.7) k/uL APTT (22.0-30.0) sec Carbon Dioxide (22-30) mmol/L BUN (7-17) mg/dL Creatinine (0.52-1.04) mg/dL Glucose (74-99) mg/dL Calcium (8.4-10.2) mg/dL Alkaline Phosphatase (38-126) U/L Troponin I 0.040 H* (0.000-0.034) ng/mL Total Protein (6.3-8.2) g/dL TSH (0.465-4.680) mIU/L Assessment and Plan Assessment: Acute kidney injury Elevated troponin Acute urinary tract infection Chronic right foot wound, with right leg swelling and erythema suspicious for cellulitis Hypertension, currently hypotensive upon admission Hypothyroidism History of coronary artery disease Sjogren syndrome History of fibromyalgia History of degenerative disc disease History of multiple sclerosis Vertigo history of Plan: This is a pleasant 56 years old female who presents with acute kidney injury and elevated troponin Continue with aggressive therapy Monitor creatinine, monitored input and output Nephrology consult start ceftriaxone, consult infectious disease team and check ultrasound of the right leg No retention per first Bladder scanWill go to recheck bladder scan Cardiology consult for elevated troponin Labs and medication were reviewed.. Continue same treatment. Continue with symptomatic treatment. Resume home medication. Monitor lytes and vitals. DVT and GI prophylaxis. Further recommendations depends on the clinical course of the patient DVT prophylaxis: Subcutaneous heparin GI Prophylaxis: Ppi PT/OT: Pending Prognosis is guarded
[2022-02-12] MEDS ORDERED: ERGOCALCIFEROL 1,250 MCG (50,000 IU) CAPSULE PO SCH (09:00)
[2022-02-12] MEDS: METOPROLOL TARTRATE 50 MG TAB PO SCH ×2 (09:04→20:12)
[2022-02-12] MEDS: LORATADINE 10 MG TAB PO SCH (09:06)
[2022-02-12] MEDS: ZINC SULFATE 220 MG CAP PO SCH (09:21)
--- NOTE | 2022-02-12 13:43 | US ---
EXAMINATION TYPE: US venous doppler duplex LE RT DATE OF EXAM: 02/12/2022 8:51 AM COMPARISON: US CLINICAL HISTORY: swelling/pain. SIDE PERFORMED: Right TECHNIQUE: The lower extremity deep venous system is examined utilizing real time linear array sonog jed with graded compression, doppler sonography and color-flow sonography. VESSELS IMAGED: Common Femoral Vein Deep Femoral Vein Greater Saphenous Vein * Femoral Vein Popliteal Vein Small Saphenous Vein * Proximal Calf Veins (* superficial vessels) Right Leg: Negative for DVT IMPRESSION: 1. Right lower extremity ultrasound negative for deep venous thrombosis.
--- NOTE | 2022-02-12 14:29 | P.NPCON ---
History of Present Illness - Reason for Consult Consult date: 02/12/22 acute renal failure - Chief Complaint Increased heart rate. - History of Present Illness Admitted to the hospital with the above complaints. She has history of acute kidney injuries in the past with a peak creatinine of 5.6. Improved to 1.0 MG per DL. She comes in with increased heart rate, blood pressures low and feels dehydrated. Denies any nausea vomiting diarrhea. No chest pains or shortness of breath. Peak creatinine of 3.1, improved to 2.5 MG per DL today. Currently on IV fluids. She has history of hypertension on verapamil. Review of Systems Constitutional: Reports as per HPI Past Medical History Past Medical History: Coronary Artery Disease (CAD), Chest Pain / Angina, Fibromyalgia, Musculoskeletal Disorder, Renal Disease Additional Past Medical History / Comment(s): Migraines, Shrgren syndrome, DDD, MS,. Right BBB, CKD, Tarsal tunnel syndrome, vertigo History of Any Multi-Drug Resistant Organisms: ESBL Date of last positivie culture/infection: 03/22/21 MDRO Source:: ESBL URINE Past Surgical History: Appendectomy, Hysterectomy, Orthopedic Surgery Additional Past Surgical History / Comment(s): right ankle, abdominal laparoscopies, Prexacral Neurectomy, Cryosurgery, Past Anesthesia/Blood Transfusion Reactions: No Reported Reaction Smoking Status: Never smoker - Past Family History Father Family Medical History: AICD/Pacemaker, Congestive Heart Failure (CHF), COPD, Diabetes Mellitus, Myocardial Infarction ([place]) Additional Family Medical History / Comment(s): Father at age 83 in his sleep. He has history of AICD. Mother Family Medical History: Hypertension Additional Family Medical History / Comment(s): Mother is alive at age 77 with history of hypertension and bronchiectasis. Patient has 2 brothers with no major medical problems. Patient does not have any sisters. Patient is one daughter with no major medical problems. Medications and Allergies Home Medications Medication Instructions Recorded Confirmed Type Cyclobenzaprine [Flexeril] 10 mg PO HS 09/27/17 02/11/22 History Pilocarpine HCl [Salagen] 5 mg PO TID 09/27/17 02/11/22 History rOPINIRole HCL [Requip] 10 mg PO HS 09/27/17 02/11/22 History Dextroamphetamine Sulfate 15 mg PO BID 12/20/18 02/11/22 History [Dexedrine] Ascorbic Acid [Vitamin C] 500 mg PO BID 11/25/19 02/11/22 History Cetirizine HCl 10 mg PO DAILY 03/23/21 02/11/22 History Diclofenac Sodium Gel [Voltaren 2 gm TOPICAL BID PRN 03/23/21 02/11/22 History Gel] Verapamil HCl [Verapamil ER] 120 mg PO DAILY 03/23/21 02/11/22 History Zolpidem [Ambien] 10 mg PO HS PRN 03/23/21 02/11/22 History ondansetron HCL [Zofran] 8 mg PO TID PRN 03/23/21 02/11/22 History Azilsartan Med/Chlorthalidone 1 tab PO DAILY 11/17/21 02/11/22 History [Edarbyclor 40-25 mg Tablet] Elderberry Fruit and Flower [Black 2 cap PO W/SUPPER 11/17/21 02/11/22 History Elderberry 575 mg Cap] Ergocalciferol (Vitamin D2) 1,250 mcg PO Q30D 11/17/21 02/11/22 History [Drisdol (50,000 Iu)] Magnesium Oxide [Mag-Ox] 400 mg PO BID 11/17/21 02/11/22 History Metoprolol Tartrate [Lopressor] 50 mg PO BID 11/17/21 02/11/22 History Zinc 50 mg PO BID 11/17/21 02/11/22 History traZODone HCL [Desyrel] 100 mg PO HS 11/17/21 02/11/22 History Acetaminophen-Codeine 300-30mg 1 tab PO Q6H PRN 02/11/22 02/11/22 History [Tylenol w/codeine #3] Pantoprazole [Protonix] 40 mg PO BID 02/11/22 02/11/22 History Allergies Allergy/AdvReac Type Severity Reaction Status Date / Time aspirin AdvReac Abdominal Verified 02/11/22 22:19 Pain Physical Exam Vitals: Vital Signs Temp Pulse Pulse Resp BP BP Pulse Ox 02/12/22 13:33 97.6 F 123 H 16 103/52 98 02/12/22 12:30 98.2 F 118 H 18 104/55 97 02/12/22 10:34 114 H 18 02/12/22 09:57 114 H 18 97 07/30/22 06:47 98.8 F 122 H 16 94/71 94 L 02/12/22 02:03 110 H 16 95/72 100 02/11/22 23:14 100 16 114/72 99 02/11/22 22:25 95 16 105/68 100 02/11/22 22:06 107 H 16 87/47 100 02/11/22 21:24 103 H 16 97/49 99 02/11/22 18:39 98.2 F 122 H 18 77/55 96 Intake and Output 02/11/22 02/12/22 02/12/22 22:59 06:59 14:59 Output Total 700 Balance -700 Output: Urine 700 Other: # Voids 1 Weight 81.647 kg 81.647 kg No acute distress S1-S2 heard Lungs clear No edema Results - Lab Results Most recent lab results Calcium 9.2 mg/dL (8.4-10.2) 02/12/22 07:42 Magnesium 1.9 mg/dL (1.6-2.3) 02/12/22 07:42 02/12/22 07:42 02/12/22 07:42 Assessment and Plan Assessment: #1 acute kidney injury suspect hemodynamic ATN with low blood pressures and component of volume depletion. -Line creatinine 1.0 MG per DL. #2 tachycardia #3 hypotensive episodes #4 complicated UTI. Plan: #1 agree with holding verapamil. Continue with IV fluids. #2 renal function improving. #3 antibiotics for UTI #4 avoid nephrotoxic agents. #5 daily renal
--- NOTE | 2022-02-12 15:50 | P.CRDCN ---
History of Present Illness History of present illness: HISTORY OF PRESENTING ILLNESS Patient is a pleasant 56-year-old female with documentation of CAD however patient denies, fibromyalgia, Sjogren's syndrome, multiple sclerosis, chronic kidney disease with previous acute kidney injury who presents secondary to feeling her heart race with mild headache and otherwise not very symptomatic. She states she could feel her heart race however denied any chest pain or pressure. She was noted to be in sinus tachycardia with heart rates in the 120s to 140s with initial blood pressures in the 70s over 50s. She was given IV fluids with improvement in blood pressure and heart rates. Her creatinine was noted to be elevated at 3.1 with baseline approximately 1. Currently she feels better and feels like she could go home. White count noted to be elevated at 12.4 with repeat 6.8. Hemoglobin 11.5 down to 9.3 today. Creatinine also improved to 2.58. Troponins noted the 0.04, 0.03, 0.01. Hemoglobin A1c noted to be 7.4 with no prior documentation of diabetes mellitus. She has been treated for a right lower extremity wound from November which has still not entirely healed. Also found to have elevated leukocyte esterase and urine white blood cell. EKG shows sinus tachycardia with right bundle branch block and nonspecific minimal T-wave inversions. Has had mild lower extremity edema. Ultrasound lower extremity shows no DVT. REVIEW OF SYSTEMS At the time of my exam: CONSTITUTIONAL: Denies fever or chills. CARDIOVASCULAR: Denies chest pain, shortness of breath, orthopnea, PND, +palpitations. RESPIRATORY: Denies cough. GASTROINTESTINAL: Denies abdominal pain, diarrhea, constipation, nausea or vomiting. MUSCULOSKELETAL: Denies myalgias. NEUROLOGIC: Denies numbness, tingling or weakness. ENDOCRINE: Denies fatigue, weight change, polydipsia or polyurina. GENITOURINARY: Denies burning, hematuria or urgency with micturation. HEMATOLOGIC: Denies history of anemia or bleeding. PHYSICAL EXAMINATION Vital signs reviewed. CONSTITUTIONAL: No apparent distress, chronically ill appearing, cushinoid facies HEENT: Head is normocephalic. Pupils are equal, round. Sclerae anicteric. Mucous membranes of the mouth are moist. No JVD. No carotid bruit. CHEST EXAMINATION: Lungs are clear to auscultation. No chest wall tenderness is noted on palpation or with deep breathing. HEART EXAMINATION: Regular rate and rhythm. S1, S2 heard. No murmurs, gallops or rub. ABDOMEN: Soft, nontender. Positive bowel sounds. EXTREMITIES: 2+ radial pulses, 1+ RLE edema. NEUROLOGIC EXAMINATION: Patient is awake, alert and oriented x3. ASSESSMENT 1. Non-STEMI likely type II mechanism possibly related to sepsis 2. Hypotension possibly septic shock 3. Sinus tachycardia reactive secondary to likely sepsis 4. Right lower extremity nonhealing ulcer 5. Newly diagnosed diabetes mellitus, hemoglobin A1c 7.4 6. Anemia 7. Urinary tract infection 8. Acute kidney injury related to ATN from hypotension PLAN Check 2-D echo to evaluate left ventricular function and rule out any significant valvular disease. Check d-dimer and if elevated likely heparin drip for possible non-STEMI as well as possible PE. Likely consider V/Q scan to rule out PE if d-dimer abnormal. Monitor hemoglobin closely with drop in hemoglobin noted. Continue with supportive care however much of symptoms concerning for sepsis. Further recommendations to follow. Past Medical History Past Medical History: Coronary Artery Disease (CAD), Chest Pain / Angina, Fibromyalgia, Musculoskeletal Disorder, Renal Disease Additional Past Medical History / Comment(s): Migraines, Shrgren syndrome, DDD, MS,. Right BBB, CKD, Tarsal tunnel syndrome, vertigo History of Any Multi-Drug Resistant Organisms: ESBL Date of last positivie culture/infection: 03/22/21 MDRO Source:: ESBL URINE Past Surgical History: Appendectomy, Hysterectomy, Orthopedic Surgery Additional Past Surgical History / Comment(s): right ankle, abdominal laparoscopies, Prexacral Neurectomy, Cryosurgery, Past Anesthesia/Blood Transfusion Reactions: No Reported Reaction Smoking Status: Never smoker - Past Family History Father Family Medical History: AICD/Pacemaker, Congestive Heart Failure (CHF), COPD, Diabetes Mellitus, Myocardial Infarction ([place]) Additional Family Medical History / Comment(s): Father at age 83 in his sleep. He has history of AICD. Mother Family Medical History: Hypertension Additional Family Medical History / Comment(s): Mother is alive at age 77 with history of hypertension and bronchiectasis. Patient has 2 brothers with no major medical problems. Patient does not have any sisters. Patient is one daughter with no major medical problems. Medications and Allergies Home Medications Medication Instructions Recorded Confirmed Type Cyclobenzaprine [Flexeril] 10 mg PO HS 09/27/17 02/11/22 History Pilocarpine HCl [Salagen] 5 mg PO TID 09/27/17 02/11/22 History rOPINIRole HCL [Requip] 10 mg PO HS 09/27/17 02/11/22 History Dextroamphetamine Sulfate 15 mg PO BID 12/20/18 02/11/22 History [Dexedrine] Ascorbic Acid [Vitamin C] 500 mg PO BID 11/25/19 02/11/22 History Cetirizine HCl 10 mg PO DAILY 03/23/21 02/11/22 History Diclofenac Sodium Gel [Voltaren 2 gm TOPICAL BID PRN 03/23/21 02/11/22 History Gel] Verapamil HCl [Verapamil ER] 120 mg PO DAILY 03/23/21 02/11/22 History Zolpidem [Ambien] 10 mg PO HS PRN 03/23/21 02/11/22 History ondansetron HCL [Zofran] 8 mg PO TID PRN 03/23/21 02/11/22 History Azilsartan Med/Chlorthalidone 1 tab PO DAILY 11/17/21 02/11/22 History [Edarbyclor 40-25 mg Tablet] Elderberry Fruit and Flower [Black 2 cap PO W/SUPPER 11/17/21 02/11/22 History Elderberry 575 mg Cap] Ergocalciferol (Vitamin D2) 1,250 mcg PO Q30D 11/17/21 02/11/22 History [Drisdol (50,000 Iu)] Magnesium Oxide [Mag-Ox] 400 mg PO BID 11/17/21 02/11/22 History Metoprolol Tartrate [Lopressor] 50 mg PO BID 11/17/21 02/11/22 History Zinc 50 mg PO BID 11/17/21 02/11/22 History traZODone HCL [Desyrel] 100 mg PO HS 11/17/21 02/11/22 History Acetaminophen-Codeine 300-30mg 1 tab PO Q6H PRN 02/11/22 02/11/22 History [Tylenol w/codeine #3] Pantoprazole [Protonix] 40 mg PO BID 02/11/22 02/11/22 History Allergies Allergy/AdvReac Type Severity Reaction Status Date / Time aspirin AdvReac Abdominal Verified 02/11/22 22:19 Pain Physical Exam Vitals: Vital Signs Temp Pulse Pulse Resp BP BP Pulse Ox 02/12/22 13:33 97.6 F 123 H 16 103/52 98 02/12/22 12:30 98.2 F 118 H 18 104/55 97 02/12/22 10:34 114 H 18 02/12/22 09:57 114 H 18 97 02/12/22 06:47 98.8 F 122 H 16 94/71 94 L 02/12/22 02:03 110 H 16 95/72 100 02/11/22 23:14 100 16 114/72 99 02/11/22 22:25 95 16 105/68 100 02/11/22 22:06 107 H 16 87/47 100 02/11/22 21:24 103 H 16 97/49 99 02/11/22 18:39 98.2 F 122 H 18 77/55 96 Intake and Output 02/12/22 02/12/22 02/12/22 06:59 14:59 22:59 Output Total 700 Balance -700 Output: Urine 700 Other: # Voids 1 Weight 81.647 kg Results 02/12/22 07:42 02/12/22 07:42 Cardiac Enzymes 02/11/22 02/11/22 02/11/22 Range/Units 19:48 19:48 21:01 AST 30 (14-36) U/L Troponin I 0.040 H* 0.031 (0.000-0.034) ng/mL 02/11/22 Range/Units 23:39 AST (14-36) U/L Troponin I 0.018 (0.000-0.034) ng/mL Coagulation 02/11/22 Range/Units 19:48 PT 11.2 (9.0-12.0) sec APTT 21.6 L (22.0-30.0) sec CBC 02/11/22 02/12/22 Range/Units 19:48 07:42 WBC 12.4 H 6.8 (3.8-10.6) k/uL RBC 3.57 L 2.81 L (3.80-5.40) m/uL Hgb 11.5 9.3 L D (11.4-16.0) gm/dL Hct 34.5 29.7 L (34.0-46.0) % Plt Count 531 H 396 (150-450) k/uL Comprehensive Metabolic Panel 02/11/22 02/12/22 Range/Units 19:48 07:42 Sodium 137 138 (137-145) mmol/L Potassium 5.0 5.0 (3.5-5.1) mmol/L Chloride 101 112 H (98-107) mmol/L Carbon Dioxide 21 L 18 L (22-30) mmol/L BUN 61 H 49 H (7-17) mg/dL Creatinine 3.15 H 2.58 H (0.52-1.04) mg/dL Glucose 120 H 86 (74-99) mg/dL Calcium 11.1 H 9.2 (8.4-10.2) mg/dL AST 30 (14-36) U/L ALT 24 (4-34) U/L Alkaline Phosphatase 138 H (38-126) U/L Total Protein 8.5 H (6.3-8.2) g/dL Albumin 5.0 (3.5-5.0) g/dL Current Medications Generic Name Dose Route Start Last Admin Trade Name Freq PRN Reason Stop Dose Admin Acetaminophen/Codeine Phosphate 1 each 02/12/22 00:37 02/12/22 13:42 Acetaminophen-Codeine 300-30mg Tab PO 1 each Q6H PRN Administration Pain Ascorbic Acid 500 mg 02/12/22 09:00 02/12/22 08:50 Ascorbic Acid 500 Mg Tab PO 500 mg BID GRIFFIN Administration Cyclobenzaprine HCl 10 mg 02/12/22 00:37 Cyclobenzaprine 10 Mg Tab PO HS PRN Pain Diclofenac Sodium 2 gm 02/12/22 00:37 Diclofenac Sodium Gel 100 Gm Tube TOPICAL BID PRN Pain Protocol Ergocalciferol 1,250 mcg 02/12/22 09:00 02/12/22 09:21 Ergocalciferol 1,250 Mcg (50,000 Iu) Capsule PO 1,250 mcg Q30D GRIFFIN Administration Heparin Sodium (Porcine) 5,000 unit 02/12/22 09:00 02/12/22 08:51 Heparin Sodium,Porcine/Pf 5,000 Unit/0.5 Ml Syringe SQ 5,000 unit Q12HR GRIFFIN Administration Sodium Chloride 1,000 mls @ 130 mls/hr 02/11/22 20:45 02/12/22 14:09 Saline 0.9% IV Not Given .[id number] GRIFFIN Ceftriaxone Sodium 1 gm/ 50 mls @ 100 mls/hr 02/12/22 09:00 02/12/22 09:21 Sodium Chloride IVPB 100 mls/hr Q24HR GRIFFIN Administration Loratadine 10 mg 02/12/22 09:00 02/12/22 09:06 Loratadine 10 Mg Tab PO 10 mg DAILY GRIFFIN Administration Magnesium Oxide 400 mg 02/12/22 09:00 02/12/22 08:50 Magnesium Oxide 400 Mg Tab PO 400 mg BID GRIFFIN Administration Metoprolol Tartrate 50 mg 02/12/22 09:00 02/12/22 09:04 Metoprolol Tartrate 50 Mg Tab PO Not Given BID GRIFFIN Ondansetron HCl 8 mg 02/12/22 00:37 Ondansetron 4 Mg Tab PO TID PRN Nausea Pantoprazole Sodium 40 mg 02/12/22 07:30 02/12/22 08:50 Pantoprazole 40 Mg Tablet PO 40 mg AC-BID GRIFFIN Administration Ropinirole HCl 10 mg 02/12/22 21:00 Ropinirole Hcl 4 Mg Tablet PO HS GRIFFIN Trazodone HCl 100 mg 02/12/22 21:00 Trazodone Hcl 100 Mg Tab PO HS GRIFFIN Zinc Sulfate 220 mg 02/12/22 09:00 02/12/22 09:21 Zinc Sulfate 220 Mg Cap PO 220 mg DAILY GRIFFIN Administration Zolpidem Tartrate 10 mg 02/12/22 00:37 02/12/22 02:10 Zolpidem 5 Mg Tab PO 10 mg HS PRN Administration SLEEP Intake and Output 02/12/22 02/12/22 02/12/22 06:59 14:59 22:59 Output Total 700 Balance -700 Output: Urine 700 Other: # Voids 1 Weight 81.647 kg Patient Weight 02/13/22 06:59 Weight 81.647 kg 02/12/22 07:42 02/12/22 07:42
[2022-02-12] MEDS: traZODone HCL 100 MG TAB PO SCH (20:11)
[2022-02-12] MEDS: rOPINIRole HCL 4 MG TABLET PO SCH (20:12)
--- NOTE | 2022-02-12 22:28 | P.CONS ---
History of Present Illness - Reason for Consult Consult date: 02/12/22 UTI/possible cellulitis Requesting physician: Alfredo E Sheet - Chief Complaint Not feeling well x 4 days - History of Present Illness Patient is a 56-year-old female who was recently admitted at this hospital in November 2021 with right ankle septic arthritis and MSSA bacteremia for the patient has completed her antibiotic therapy the patient wound on the dorsal aspect of the right ankle is currently healing and is being treated with the Hydrofera Blue dressing patient mention the home care nurse came and change the dressing yesterday and was told the wound was looking good patient mention she not been feeling well since Monday that is about 4 days before presentation to the hospital patient been complaining of feeling weak and tired and apparently the patient was told yesterday that she did have elevated heart rate and the patient was concerned that about feeling dehydrated patient was not making much urine and the mouth was dry patient denies having any high-grade fever or chills no chest pain shortness of breath or cough no abdominal pain no diarrhea and denies pain to the right ankle area or any drainage with the symptoms the patient presented to hospital on arrival to the ER the patient was afebrile patient did have mild elevated white count 4.4 which subsequently has normalized today patient did have a elevated BUN/creatinine and elevated troponin did have a positive UA urine culture has been obtained patient was started on Rocephin infectious disease was consulted for further management concerning for possible cellulitis versus UTI patient did have a chest x-ray no acute cardiopulmonary disease Review of Systems Positive point has been mentioned in the HPI rest of the systems are negative Past Medical History Past Medical History: Coronary Artery Disease (CAD), Chest Pain / Angina, Fibromyalgia, Musculoskeletal Disorder, Renal Disease Additional Past Medical History / Comment(s): Migraines, Shrgren syndrome, DDD, MS,. Right BBB, CKD, Tarsal tunnel syndrome, vertigo History of Any Multi-Drug Resistant Organisms: ESBL Year Discovered:: 03/22/21 MDRO Source:: ESBL URINE Past Surgical History: Appendectomy, Hysterectomy, Orthopedic Surgery Additional Past Surgical History / Comment(s): right ankle, abdominal laparoscopies, Prexacral Neurectomy, Cryosurgery, Past Anesthesia/Blood Transfusion Reactions: No Reported Reaction Smoking Status: Never smoker - Past Family History Father Family Medical History: AICD/Pacemaker, Congestive Heart Failure (CHF), COPD, Diabetes Mellitus, Myocardial Infarction (NH) Additional Family Medical History / Comment(s): Father at age 83 in his sleep. He has history of AICD. Mother Family Medical History: Hypertension Additional Family Medical History / Comment(s): Mother is alive at age 77 with history of hypertension and bronchiectasis. Patient has 2 brothers with no major medical problems. Patient does not have any sisters. Patient is one daughter with no major medical problems. Medications and Allergies Home Medications Medication Instructions Recorded Confirmed Type Cyclobenzaprine [Flexeril] 10 mg PO HS 09/27/17 02/11/22 History Pilocarpine HCl [Salagen] 5 mg PO TID 09/27/17 02/11/22 History rOPINIRole HCL [Requip] 10 mg PO HS 09/27/17 02/11/22 History Dextroamphetamine Sulfate 15 mg PO BID 12/20/18 02/11/22 History [Dexedrine] Ascorbic Acid [Vitamin C] 500 mg PO BID 11/25/19 02/11/22 History Cetirizine HCl 10 mg PO DAILY 03/23/21 02/11/22 History Diclofenac Sodium Gel [Voltaren 2 gm TOPICAL BID PRN 03/23/21 02/11/22 History Gel] Verapamil HCl [Verapamil ER] 120 mg PO DAILY 03/23/21 02/11/22 History Zolpidem [Ambien] 10 mg PO HS PRN 03/23/21 02/11/22 History ondansetron HCL [Zofran] 8 mg PO TID PRN 03/23/21 02/11/22 History Azilsartan Med/Chlorthalidone 1 tab PO DAILY 11/17/21 02/11/22 History [Edarbyclor 40-25 mg Tablet] Elderberry Fruit and Flower [Black 2 cap PO W/SUPPER 11/17/21 02/11/22 History Elderberry 575 mg Cap] Ergocalciferol (Vitamin D2) 1,250 mcg PO Q30D 11/17/21 02/11/22 History [Drisdol (50,000 Iu)] Magnesium Oxide [Mag-Ox] 400 mg PO BID 11/17/21 02/11/22 History Metoprolol Tartrate [Lopressor] 50 mg PO BID 11/17/21 02/11/22 History Zinc 50 mg PO BID 11/17/21 02/11/22 History traZODone HCL [Desyrel] 100 mg PO HS 11/17/21 02/11/22 History Acetaminophen-Codeine 300-30mg 1 tab PO Q6H PRN 02/11/22 02/11/22 History [Tylenol w/codeine #3] Pantoprazole [Protonix] 40 mg PO BID 02/11/22 02/11/22 History Allergies Allergy/AdvReac Type Severity Reaction Status Date / Time aspirin AdvReac Abdominal Verified 02/11/22 22:19 Pain Physical Exam Vitals: Vital Signs Temp Pulse Resp BP Pulse Ox 02/12/22 12:30 98.2 F 118 H 18 104/55 97 02/12/22 10:34 114 H 18 02/12/22 09:57 114 H 18 97 02/12/22 06:47 98.8 F 122 H 16 94/71 94 L 02/12/22 02:03 110 H 16 95/72 100 02/11/22 23:14 100 16 114/72 99 02/11/22 22:25 95 16 105/68 100 02/11/22 22:06 107 H 16 87/47 100 02/11/22 21:24 103 H 16 97/49 99 02/11/22 18:39 98.2 F 122 H 18 77/55 96 Intake and Output 02/11/22 02/12/22 02/12/22 22:59 06:59 14:59 Output Total 700 Balance -700 Output: Urine 700 Other: # Voids 1 Weight 81.647 kg 81.647 kg GENERAL DESCRIPTION: Middle-aged female lying in bed, no distress. No tachypnea or accessory muscle of respiration use. HEENT: Shows Pallor , no scleral icterus. Oral mucous membrane is dry. No pharyngeal erythema or thrush NECK: Trachea central, no thyromegaly. LUNGS: Unlabored breathing. Clear to auscultation anteriorly. No wheeze or crackle. HEART: S1, S2, regular rate and rhythm. No loud murmur ABDOMEN: Soft, no tenderness , guarding or rigidity, no organomegaly EXTREMITIES: Left foot wound is currently dressed is no drainage on the dressing no surrounding redness. SKIN: No rash, no masses palpable. NEUROLOGICAL: The patient is awake, alert, oriented x3, mood and affect normal. Results CBC & Chem 7: 02/12/22 07:42 02/12/22 07:42 Labs: Abnormal Lab Results - Last 24 Hours (Table) 02/11/22 02/11/22 02/11/22 Range/Units 19:48 19:48 19:48 WBC 12.4 H (3.8-10.6) k/uL RBC 3.57 L (3.80-5.40) m/uL Hgb (11.4-16.0) gm/dL Hct (34.0-46.0) % MCV (80.0-100.0) fL Plt Count 531 H (150-450) k/uL Neutrophils # 9.3 H (1.3-7.7) k/uL APTT 21.6 L (22.0-30.0) sec Chloride (98-107) mmol/L Carbon Dioxide 21 L (22-30) mmol/L BUN 61 H (7-17) mg/dL Creatinine 3.15 H (0.52-1.04) mg/dL Glucose 120 H (74-99) mg/dL Hemoglobin A1c (0.0-6.0) % Calcium 11.1 H (8.4-10.2) mg/dL Alkaline Phosphatase 138 H (38-126) U/L Troponin I (0.000-0.034) ng/mL Total Protein 8.5 H (6.3-8.2) g/dL TSH 6.140 H (0.465-4.680) mIU/L Urine Protein (Negative) Urine Ketones (Negative) Ur Leukocyte Esterase (Negative) Urine WBC (0-5) /hpf Amorphous Sediment (None) /hpf Urine Bacteria (None) /hpf Hyaline Casts (0-2) /lpf Urine Mucus (None) /hpf 02/11/22 02/12/22 02/12/22 Range/Units 19:48 07:42 07:42 WBC (3.8-10.6) k/uL RBC 2.81 L (3.80-5.40) m/uL Hgb 9.3 L D (11.4-16.0) gm/dL Hct 29.7 L (34.0-46.0) % MCV 105.7 H D (80.0-100.0) fL Plt Count (150-450) k/uL Neutrophils # (1.3-7.7) k/uL APTT (22.0-30.0) sec Chloride 112 H (98-107) mmol/L Carbon Dioxide 18 L (22-30) mmol/L BUN 49 H (7-17) mg/dL Creatinine 2.58 H (0.52-1.04) mg/dL Glucose (74-99) mg/dL Hemoglobin A1c (0.0-6.0) % Calcium (8.4-10.2) mg/dL Alkaline Phosphatase (38-126) U/L Troponin I 0.040 H* (0.000-0.034) ng/mL Total Protein (6.3-8.2) g/dL TSH (0.465-4.680) mIU/L Urine Protein (Negative) Urine Ketones (Negative) Ur Leukocyte Esterase (Negative) Urine WBC (0-5) /hpf Amorphous Sediment (None) /hpf Urine Bacteria (None) /hpf Hyaline Casts (0-2) /lpf Urine Mucus (None) /hpf 02/12/22 02/12/22 Range/Units 07:42 08:05 WBC (3.8-10.6) k/uL RBC (3.80-5.40) m/uL Hgb (11.4-16.0) gm/dL Hct (34.0-46.0) % MCV (80.0-100.0) fL Plt Count (150-450) k/uL Neutrophils # (1.3-7.7) k/uL APTT (22.0-30.0) sec Chloride (98-107) mmol/L Carbon Dioxide (22-30) mmol/L BUN (7-17) mg/dL Creatinine (0.52-1.04) mg/dL Glucose (74-99) mg/dL Hemoglobin A1c 7.4 H (0.0-6.0) % Calcium (8.4-10.2) mg/dL Alkaline Phosphatase (38-126) U/L Troponin I (0.000-0.034) ng/mL Total Protein (6.3-8.2) g/dL TSH (0.465-4.680) mIU/L Urine Protein Trace H (Negative) Urine Ketones 1+ H (Negative) Ur Leukocyte Esterase Large H (Negative) Urine WBC 23 H (0-5) /hpf Amorphous Sediment Rare H (None) /hpf Urine Bacteria Rare H (None) /hpf Hyaline Casts 20 H (0-2) /lpf Urine Mucus Rare H (None) /hpf Assessment and Plan (1) UTI (urinary tract infection) Current Visit: No Status: Acute Code(s): N39.0 - URINARY TRACT INFECTION, SITE NOT SPECIFIED SNOMED Code(s): 73397453 Plan: 1patient presented hospital with not feeling well weakness which is likely multifactorial for possible prerenal/dehydration as we did have elevated BUN/creatinine patient did have mild elevated white count which could be hemoconcentration plus minus a component of UTI likely from enteric gram-n egative patient right ankle wound is healing with no evidence of any cellulitis. 2patient to continue with Rocephin while waiting for the culture to finalize. 3local wound care to the right ankle wound with Hydrofera Blue dressing change every 48 hour. We will follow on clinical condition and cultures to further adjust medication if needed Thank you for this consultation will follow this patient along with you Time with Patient: Greater than 30
[2022-02-13] MEDS: HEPARIN SODIUM,PORCINE/PF 5,000 UNIT/0.5 ML SYRINGE SQ SCH ×4 (00:27→22:44)
[2022-02-13] MEDS: Acetaminophen-Codeine 300-30mg TAB PO PRN ×2 (03:54→12:51)
[2022-02-13] MEDS: PANTOPRAZOLE 40 MG TABLET PO SCH ×2 (06:37→15:47)
[2022-02-13] MEDS: SODIUM CHLORIDE 0.9% 1,000 ML IV SCH ×2 (06:37→10:44)
[2022-02-13 08:03] LABS: Basophils % (A) 0 %; Eosinophils % (A) 0 %; HCT 26.6 % (34.0-46.0); HGB 8.7 gm/dL (11.4-16.0); Lymphocytes # (A) 1.2 k/uL (1.0-4.8); Lymphocytes % (A) 19 %; MCH 32.5 pg (25.0-35.0); MCHC 32.8 g/dL (31.0-37.0); Mean Platelet Volume 8.4; Monocytes # (A) 0.4 k/uL (0-1.0); Monocytes % (A) 6 %; Neutrophils # (A) 4.3 k/uL (1.3-7.7); Neutrophils % (A) 71 %; Platelet Count 326 k/uL (150-450); RBC 2.68 m/uL (3.80-5.40); RDW 14.5 % (11.5-15.5); WBC 6.1 k/uL (3.8-10.6)
[2022-02-13 08:07] LABS: Calcium 9.3 mg/dL (8.4-10.2); Magnesium 1.6 mg/dL (1.6-2.3); Potassium 4.3 mmol/L (3.5-5.1)
[2022-02-13 08:10] LABS: MCV 99.1 fL (80.0-100.0)
[2022-02-13] MEDS: ONDANSETRON 4 MG/2 ML VIAL IVP PRN ×2 (09:56→16:01)
[2022-02-13] MEDS: ZINC SULFATE 220 MG CAP PO SCH (10:44)
[2022-02-13] MEDS: METOPROLOL TARTRATE 50 MG TAB PO SCH ×2 (10:44→21:18)
[2022-02-13] MEDS: LORATADINE 10 MG TAB PO SCH (10:44)
[2022-02-13] MEDS: MAGNESIUM OXIDE 400 MG TAB PO SCH ×2 (10:45→21:17)
[2022-02-13] MEDS: ASCORBIC ACID 500 MG TAB PO SCH ×2 (10:45→21:17)
[2022-02-13] MEDS: MORPHINE SULFATE 2 MG/ML SYRINGE IVP PRN ×3 (10:47→21:18)
--- NOTE | 2022-02-13 13:02 | P.PN ---
Subjective Progress Note Date: 02/13/22 Follow-up for acute kidney injury. Urine output of 1.9 L Objective - Vital Signs Vital signs: Vital Signs Temp 97.9 F 02/13/22 12:18 Pulse 102 H 02/13/22 12:18 Resp 14 02/13/22 09:17 BP 123/87 02/13/22 12:18 Pulse Ox 100 02/13/22 12:18 FiO2 Intake & Output 02/12/22 02/13/22 02/13/22 18:59 06:59 18:59 Intake Total 520 1040 Output Total 1100 800 Balance -580 240 Weight 81.647 kg 80.3 kg Intake: Intake, IV Titration 520 1040 Amount Sodium Chloride 0.9% 1, 520 1040 000 ml @ 130 mls/hr IV . Q7H42M [facility] Rx#:[id number] Output: Urine 1100 800 Other: Voiding Method Toilet # Voids 1 1 - Exam No Acute distress S1-S2 heard Lungs clear No edema - Labs CBC & Chem 7: 02/13/22 06:32 02/13/22 07:03 Labs: Abnormal Lab Results - Last 24 Hours (Table) 02/12/22 02/13/22 02/13/22 Range/Units 16:01 06:32 07:03 RBC 2.68 L (3.80-5.40) m/uL Hgb 8.7 L (11.4-16.0) gm/dL Hct 26.6 L (34.0-46.0) % D-Dimer 0.63 H (<0.60) mg/L FEU Chloride 116 H (98-107) mmol/L Carbon Dioxide 19 L (22-30) mmol/L BUN 30 H (7-17) mg/dL Creatinine 1.49 H (0.52-1.04) mg/dL Microbiology - Last 24 Hours (Table) 02/12/22 08:05 Urine Culture - Preliminary Urine,Voided Gram Neg Bacilli Assessment and Plan Assessment: #1 acute kidney injury suspect hemodynamic ATN with low blood pressures and component of volume depletion. -Baseline creatinine 1.0 MG per DL. #2 tachycardia and non-STEMI #3 hypotensive episodes #4 complicated UTI. Plan: #1 agree with holding verapamil. Continue with IV fluids. #2 renal function improving, close to baseline. #3 antibiotics for UTI #4 avoid nephrotoxic agents. #5 daily renal labs
--- NOTE | 2022-02-13 13:08 | NM ---
EXAMINATION TYPE: NM pul perfusion DATE OF EXAM: 02/13/2022 COMPARISON: 02/11/2022 HISTORY: High d-dimer Following administration of 4.7 mCi Tc 99m MAA. Images obtained post injection. No additional imagin g to be performed due to patient nausea and headache FINDINGS: Perfusion images were obtained with 6 projections. No suspicious moderate or large perfusion defects are identified. IMPRESSION: Low probability for pulmonary embolism based on modified PIOPED 2 criteria.
--- NOTE | 2022-02-13 15:44 | P.PN ---
Subjective HISTORY OF PRESENTING ILLNESS Patient is a pleasant 56-year-old female with documentation of CAD however patient denies, fibromyalgia, Sjogren's syndrome, multiple sclerosis, chronic kidney disease with previous acute kidney injury who presents secondary to feeling her heart race with mild headache and otherwise not very symptomatic. She states she could feel her heart race however denied any chest pain or pressure. She was noted to be in sinus tachycardia with heart rates in the 120s to 140s with initial blood pressures in the 70s over 50s. She was given IV fluids with improvement in blood pressure and heart rates. Her creatinine was n oted to be elevated at 3.1 with baseline approximately 1. Currently she feels better and feels like she could go home. White count noted to be elevated at 12.4 with repeat 6.8. Hemoglobin 11.5 down to 9.3 today. Creatinine also improved to 2.58. Troponins noted the 0.04, 0.03, 0.01. Hemoglobin A1c noted to be 7.4 with no prior documentation of diabetes mellitus. She has been treated for a right lower extremity wound from November which has still not entirely healed. Also found to have elevated leukocyte esterase and urine white blood cell. EKG shows sinus tachycardia with right bundle branch block and nonspecific minimal T-wave inversions. Has had mild lower extremity edema. Ultrasound lower extremity shows no DVT. 02/13 Patient seen and examined. Patient still somewhat nauseous and threw up last night. Has been receiving IV fluids with improvement in blood pressure and creatinine down from 3.1-2.6-1.5. Denies any chest pain or pressure. D-dimer was mildly elevated and therefore VQ scan was performed which showed low probability of PE. PHYSICAL EXAMINATION Vital signs reviewed. CONSTITUTIONAL: No apparent distress, chronically ill appearing, cushinoid facies HEENT: Head is normocephalic. Pupils are equal, round. Sclerae anicteric. Mucous membranes of the mouth are moist. No JVD. No carotid bruit. CHEST EXAMINATION: Lungs are clear to auscultation. No chest wall tenderness is noted on palpation or with deep breathing. HEART EXAMINATION: Regular rate and rhythm. S1, S2 heard. No murmurs, gallops or rub. ABDOMEN: Soft, nontender. Positive bowel sounds. EXTREMITIES: 2+ radial pulses, 1+ RLE edema. NEUROLOGIC EXAMINATION: Patient is awake, alert and oriented x3. ASSESSMENT 1. Non-STEMI likely type II mechanism possibly related to sepsis 2. Hypotension possibly septic shock 3. Sinus tachycardia reactive secondary to likely sepsis 4. Right lower extremity nonhealing ulcer 5. Newly diagnosed diabetes mellitus, hemoglobin A1c 7.4 6. Anemia 7. Urinary tract infection 8. Acute kidney injury related to ATN from hypotension PLAN Appears to be improving with supportive care. Troponins have trended down and d-dimer minimally elevated however VQ scan negative for PE. Await 2-D echo. Continue with supportive care. Further recommendations follow. Objective - Vital Signs Vital signs: Vital Signs Temp 97.9 F 02/13/22 12:18 Pulse 102 H 02/13/22 12:18 Resp 14 02/13/22 09:17 BP 123/87 02/13/22 12:18 Pulse Ox 100 02/13/22 12:18 FiO2 Intake & Output 02/12/22 02/13/22 02/13/22 18:59 06:59 18:59 Intake Total 520 1040 Output Total 1100 800 Balance -580 240 Weight 81.647 kg 80.3 kg Intake: Intake, IV Titration 520 1040 Amount Sodium Chloride 0.9% 1, 520 1040 000 ml @ 130 mls/hr IV . Q7H42M [facility] Rx#:[id number] Output: Urine 1100 800 Other: Voiding Method Toilet # Voids 1 1 - Labs CBC & Chem 7: 02/13/22 06:32 02/13/22 07:03 Labs: Abnormal Lab Results - Last 24 Hours (Table) 02/12/22 02/13/22 02/13/22 Range/Units 16:01 06:32 07:03 RBC 2.68 L (3.80-5.40) m/uL Hgb 8.7 L (11.4-16.0) gm/dL Hct 26.6 L (34.0-46.0) % D-Dimer 0.63 H (<0.60) mg/L FEU Chloride 116 H (98-107) mmol/L Carbon Dioxide 19 L (22-30) mmol/L BUN 30 H (7-17) mg/dL Creatinine 1.49 H (0.52-1.04) mg/dL Microbiology - Last 24 Hours (Table) 02/12/22 08:05 Urine Culture - Preliminary Urine,Voided Gram Neg Bacilli
--- NOTE | 2022-02-13 18:26 | P.PN ---
Subjective This is a pleasant 56 years old male with past medical history of Coronary Artery Disease, Fibromyalgia, , Migraines, Sjogren syndrome, DDD, MS, Right BBB, CKD, Tarsal tunnel syndrome, vertigo Patient is having a visiting nurse will find her tachycardic with heart rate around 145, patient was asymptomatic at that time with no chest pain or dyspnea or other complaints, her nurse referred her to the emergency room. Patient also reports difficulty urinating for the last 1-2 days. No dysuria or urgency. No diarrhea or abdominal pain or vomiting. She has mild headache and postural dizziness but no weakness or numbness. She has some nausea. She denies smoking, alcohol or illicit drug. She has history of right foot ulcer that she follow up with Dr. Mendez since November. The right foot is wrapped in a dressing and patient refused to be checked out however her right leg looks also warm and swollen. Patient is tachycardic on admission 122 and hypotensive 94/71. She was also hypotensive on admission 87/47 and 77/55. showing mild leukocytosis 12.4, rest o CBC is unremarkable. INR 1.0. Creatinine is elevated 3.1, compared to baseline of 0.8-1.1. First troponin was mildly elevated at 0.04, then came back to normal at 0.03 and 0.01. TSH is high at 6.1 but normal free T4 at 1.8. EKG showing sinus tachycardia at [address]-T changes. Chest x-ray: No acute cardiopulmonary process. In the emergency room patient received 2 L of normal saline. Bladder scan injected was 76-100 02/13/2022 Patient is present with difficulty urination secondary to UTI and she is responding to treatment with ceftriaxone. Vitals are stable and his creatinine is trending down to 1.49 today and she is on normal saline with 30 mL per hour lower to 75 mL/h. D-dimer is mildly elevated however VQ scan/pulmonary perfusion is low probability for PE. Right leg is negative for DVT, going to check the left leg ultrasound as well. Patient today is complaining of from migraine headache which is typical for her started on the left side goes on both superior area of the head and also to the neck, nonspecific in character, patient was asking for IV pain medication because of her nausea and vomiting associated with the migraine headache. Objective - Vital Signs Vital signs: Vital Signs Temp 98.1 F 07/31/22 09:17 Pulse 99 02/13/22 09:17 Resp 14 02/13/22 09:17 BP 136/83 02/13/22 09:17 Pulse Ox 97 02/13/22 09:17 FiO2 Intake & Output 02/12/22 02/13/22 02/13/22 18:59 06:59 18:59 Intake Total 520 1040 Output Total 1100 800 Balance -580 240 Weight 81.647 kg 80.3 kg Intake: Intake, IV Titration 520 1040 Amount Sodium Chloride 0.9% 1, 520 1040 000 ml @ 130 mls/hr IV . Q7H42M [facility] Rx#:[id number] Output: Urine 1100 800 Other: Voiding Method Toilet # Voids 1 - Exam GENERAL: The patient is alert and oriented x3, not in any acute distress. Well developed, well nourished. HEENT: Pupils are round and equally reacting to light. EOMI. No scleral icterus. No conjunctival pallor. Normocephalic, atraumatic. No pharyngeal erythema. No thyromegaly. CARDIOVASCULAR: S1 and S2 present. No murmurs, rubs, or gallops. PULMONARY: Chest is clear to auscultation, no wheezing or crackles. ABDOMEN: Soft, nontender, nondistended, normoactive bowel sounds. No palpable organomegaly. MUSCULOSKELETAL: No joint swelling or deformity. -EXTREMITIES: No cyanosis, clubbing, or pedal edema. Right foot ulcer with no surrounding cellulitis NEUROLOGICAL: Gross neurological examination did not reveal any focal deficits. SKIN: No rashes. No petechiae - Labs CBC & Chem 7: 02/13/22 06:32 02/13/22 07:03 Labs: Abnormal Lab Results - Last 24 Hours (Table) 02/12/22 02/13/22 02/13/22 Range/Units 16:01 06:32 07:03 RBC 2.68 L (3.80-5.40) m/uL Hgb 8.7 L (11.4-16.0) gm/dL Hct 26.6 L (34.0-46.0) % D-Dimer 0.63 H (<0.60) mg/L FEU Chloride 116 H (98-107) mmol/L Carbon Dioxide 19 L (22-30) mmol/L BUN 30 H (7-17) mg/dL Creatinine 1.49 H (0.52-1.04) mg/dL Microbiology - Last 24 Hours (Table) 02/12/22 08:05 Urine Culture - Preliminary Urine,Voided Assessment and Plan Assessment: Acute kidney injury Elevated troponin Acute urinary tract infection Chronic right foot wound, with right leg swelling and erythema suspicious for cellulitis Hypertension, currently hypotensive upon admission Hypothyroidism History of coronary artery disease Sjogren syndrome History of fibromyalgia History of degenerative disc disease History of multiple sclerosis Vertigo history of Plan: This is a pleasant 56 years old female who presents with acute kidney injury and elevated troponin Continue with normal saline Monitor creatinine, monitored input and output Nephrology consult is appreciated start ceftriaxone, consult infectious disease team, follow-up urine culture check ultrasound of the left leg No retention per first Bladder scan,Will go to recheck bladder scan Cardiology consult for elevated troponin Labs and medication were reviewed.. Continue same treatment. Continue with sym ptomatic treatment. Resume home medication. Monitor lytes and vitals. DVT and GI prophylaxis. Further recommendations depends on the clinical course of the patient DVT prophylaxis: Subcutaneous heparin GI Prophylaxis: Ppi PT/OT: Pending Prognosis is guarded
--- NOTE | 2022-02-13 19:25 | US ---
EXAMINATION TYPE: US venous doppler duplex LE LT DATE OF EXAM: 02/13/2022 4:43 PM COMPARISON: US CLINICAL HISTORY: high ddimer. High d dimer. No hx of DVT. Patient does not take blood thinners. SIDE PERFORMED: Left TECHNIQUE: The lower extremity deep venous system is examined utilizing real time linear array sonog jed with graded compression, doppler sonography and color-flow sonography. VESSELS IMAGED: Common Femoral Vein Deep Femoral Vein Greater Saphenous Vein * Femoral Vein Popliteal Vein Small Saphenous Vein * Proximal Calf Veins (* superficial vessels) Left Leg: No evidence of DVT in veins imaged at this time. IMPRESSION: No evidence of deep vein thrombosis in the left leg.
[2022-02-13] MEDS: traZODone HCL 100 MG TAB PO SCH (21:17)
[2022-02-13] MEDS: rOPINIRole HCL 4 MG TABLET PO SCH (22:43)
[2022-02-14] MEDS: ONDANSETRON 4 MG/2 ML VIAL IVP PRN (03:45)
[2022-02-14] MEDS: MORPHINE SULFATE 2 MG/ML SYRINGE IVP PRN (03:45)
[2022-02-14] MEDS: SODIUM CHLORIDE 0.9% 1,000 ML IV SCH ×2 (06:43→17:53)
[2022-02-14] MEDS: PANTOPRAZOLE 40 MG TABLET PO SCH ×2 (06:44→16:11)
[2022-02-14 07:41] LABS: Basophils % (A) 0 %; Eosinophils % (A) 1 %; HCT 25.8 % (34.0-46.0); HGB 8.3 gm/dL (11.4-16.0); Lymphocytes # (A) 1.5 k/uL (1.0-4.8); Lymphocytes % (A) 18 %; MCH 32.6 pg (25.0-35.0); MCHC 32.1 g/dL (31.0-37.0); MCV 101.7 fL (80.0-100.0); Macrocytosis Slight; Mean Platelet Volume 7.1; Monocytes # (A) 0.5 k/uL (0-1.0); Monocytes % (A) 6 %; Neutrophils # (A) 6.1 k/uL (1.3-7.7); Neutrophils % (A) 73 %; Platelet Count 357 k/uL (150-450); RBC 2.53 m/uL (3.80-5.40); RDW 14.5 % (11.5-15.5); WBC 8.4 k/uL (3.8-10.6)
[2022-02-14 07:58] LABS: Calcium 9.3 mg/dL (8.4-10.2); Magnesium 1.4 mg/dL (1.6-2.3); Potassium 4.4 mmol/L (3.5-5.1)
[2022-02-14] MEDS ORDERED: Magnesium Replacement Protocol 1 EACH MISC MISCELLANE PRN (08:48)
[2022-02-14] MEDS ORDERED: TRIMETHOBENZAMIDE 100 MG/ML 2 ML VIAL IM STA (08:48)
--- NOTE | 2022-02-14 08:51 | P.PN ---
Subjective Patient is seen in follow-up for acute kidney injury. Renal function improving. On IV fluids. Good urine output. Oral intake fair. No vomiting or diarrhea. Undergoing echocardiogram. Vital signs are stable. General: Awake. No acute distress. HEENT: Head exam is unremarkable. LUNGS: Breath sounds decreased. HEART: Rate and Rhythm are regular. ABDOMEN: Soft, no distention. EXTREMITITES: No edema. Objective - Vital Signs Vital signs: Vital Signs Temp 98.0 F 02/14/22 04:00 Pulse 92 02/14/22 04:00 Resp 18 02/14/22 04:00 BP 141/77 02/14/22 04:00 Pulse Ox 95 02/14/22 04:00 FiO2 Intake & Output 02/13/22 02/14/22 02/14/22 18:59 06:59 18:59 Output Total 200 600 Balance -200 -600 Weight 81.1 kg Output: Urine 200 600 Other: Voiding Method Toilet Toilet # Voids 1 - Labs CBC & Chem 7: 02/14/22 07:03 02/14/22 07:03 Labs: Abnormal Lab Results - Last 24 Hours (Table) 02/14/22 02/14/22 Range/Units 07:03 07:03 RBC 2.53 L (3.80-5.40) m/uL Hgb 8.3 L (11.4-16.0) gm/dL Hct 25.8 L (34.0-46.0) % MCV 101.7 H (80.0-100.0) fL Chloride 112 H (98-107) mmol/L Carbon Dioxide 21 L (22-30) mmol/L BUN 18 H (7-17) mg/dL Creatinine 1.12 H (0.52-1.04) mg/dL Magnesium 1.4 L (1.6-2.3) mg/dL Microbiology - Last 24 Hours (Table) 02/12/22 08:05 Urine Culture - Preliminary Urine,Voided Gram Neg Bacilli Assessment and Plan Plan: Assessment: 1. Acute kidney injury mostly prerenal secondary to hypotension and hypovolemia improving with IV hydration. Creatinine 1.12 today. Baseline creatinine near 1. 2. NSTEMI. Cardiology following. 3. UTI on antibiotics. Urine culture positive for gram-negative bacilli. 4. Hypomagnesemia from poor intake. Plan: Maintain IV fluids. Replace magnesium. Follow-up cultures. Continue to monitor renal function and urine output. Follow-up echocardiogram.
[2022-02-14] MEDS ORDERED: METOCLOPRAMIDE 5 MG/ML 2 ML VIAL IVP STA (08:56)
[2022-02-14] MEDS ORDERED: BUTALB/APAP/CAFF 50-325-40MG TAB PO STA (08:58)
[2022-02-14] MEDS: HEPARIN SODIUM,PORCINE/PF 5,000 UNIT/0.5 ML SYRINGE SQ SCH ×3 (09:28→23:20)
[2022-02-14] MEDS: ZINC SULFATE 220 MG CAP PO SCH (09:29)
[2022-02-14] MEDS: ASCORBIC ACID 500 MG TAB PO SCH ×2 (09:29→21:08)
[2022-02-14] MEDS: METOPROLOL TARTRATE 50 MG TAB PO SCH ×2 (09:29→21:08)
[2022-02-14] MEDS: LORATADINE 10 MG TAB PO SCH (09:29)
[2022-02-14] MEDS: MAGNESIUM OXIDE 400 MG TAB PO SCH ×2 (09:30→21:07)
--- NOTE | 2022-02-14 09:41 | CA ---
Transthoracic Echo Report Name: Sari Irizarry Age: 56 Gender: F : 1965 Exam Date: 02/14/2022 08:33 Exam Location: [facility] Ht (in): 64 Wt (lb): 178 Ordering Physician: Ho Dang DO ([email or web address]) Attending/Referring Phys: Credit Risk Review Officer Edilia Mercedes RDCS Procedure CPT: Indications: re: LV function Cardiac Hx: Fm hx of heart disease, Htn Technical Quality: Fair Contrast 1: Total Dose (mL): Contrast 2: Total Dose (mL): MEASUREMENTS (Male / Female) Normal Values 2D ECHO LV Diastolic Diameter PLAX 3.3 cm 4.2 - 5.9 / 3.9 - 5.3 cm LV Systolic Diameter PLAX 2.1 cm IVS Diastolic Thickness 0.9 cm 0.6 - 1.0 / 0.6 - 0.9 cm LVPW Diastolic Thickness 1.2 cm 0.6 - 1.0 / 0.6 - 0.9 cm LV Relative Wall Thickness 0.6 RV Internal Dim ED PLAX 2.5 cm LA Volume 32.3 cm??? 18 - 58 / 22 - 52 cm??? M-MODE Aortic Root Diameter MM 3.1 cm LA Systolic Diameter MM 3.2 cm LA Ao Ratio MM 1.0 MV E Point Septal Separation 0.5 cm AV Cusp Separation MM 2.2 cm DOPPLER AV Peak Velocity 142.2 cm/s AV Peak Gradient 8.1 mmHg MV Area PHT 3.7 cm??? Mitral E Point Velocity 75.9 cm/s Mitral A Point Velocity 83.2 cm/s Mitral E to A Ratio 0.9 MV Deceleration Time 205.9 ms MV E' Velocity 9.6 cm/s Mitral E to MV E' Ratio 7.9 TR Peak Velocity 134.4 cm/s TR Peak Gradient 7.2 mmHg Right Ventricular Systolic Press 12.1 mmHg FINDINGS Left Ventricle Mildly increased posterior wall thickness. Left ventricular ejection fraction is estimated at 55-60 %. Left ventricular cavity size normal. Right Ventricle The right ventricle is normal in size and function. Right Atrium The right atrium is normal in size. Left Atrium The left atrium is normal in size. Mitral Valve Structurally normal mitral valve without significant stenosis or prolapse. There is trace mitral regurgitation. Aortic Valve Structurally normal aortic valve without significant sclerosis or stenosis. There is no aortic regurgitation. Tricuspid Valve Structurally normal tricuspid valve without significant stenosis. Pulmonary artery systolic pressure is normal. Trace tricuspid regurgitation. Pulmonic Valve Structurally normal pulmonic valve without significant stenosis. There is no pulmonic regurgitation. Pericardium Normal pericardium without effusion. Aorta Normal aortic root dimension. CONCLUSIONS Preserved LV systolic function ejection fraction greater than 55-60% Previewed by: Dr. Marin Alexander MD (Electronically Signed) Final Date: 14 February 2022 09:40
--- NOTE | 2022-02-14 10:29 | XR ---
KUB HISTORY: Recurrent nausea and vomiting KUB on 2images correlated to CT 03/25/2021 The patient identified right-sided rib fractures, healing pelvic fractures again noted. There is no e vident bowel obstruction or pneumoperitoneum. There is a spinal curvature. Metallic densities are pre sent in the presacral region, possible prior implant. Probable blastic calcifications present within the pelvis. IMPRESSION: No acute abnormality.
[2022-02-14] MEDS: BUTALB/APAP/CAFF 50-325-40MG TAB PO PRN ×2 (13:13→21:07)
[2022-02-14] MEDS: MAGNESIUM SULFATE-D5W PMX 1 GM in DEXTROSE/WATER 1 100ML.BAG IVPB SCH ×2 (13:14→17:53)
[2022-02-14] MEDS: METOCLOPRAMIDE 5 MG/ML 2 ML VIAL IVP PRN ×2 (13:18→21:12)
--- NOTE | 2022-02-14 14:18 | P.PN ---
Subjective Patient is a pleasant 56-year-old female with past medical history of fibromyalgia, Sjogren's syndrome, multiple sclerosis, chronic kidney disease wi th previous acute kidney injury. She does not follow with a emergency management specialist. She presents secondary to feeling her heart race with mild headache and otherwise not very symptomatic. She denied any chest pain or pressure. She was noted to be in sinus tachycardia with heart rates in the 120s to 140s with initial blood pressures in the 70s/50s. She was given IV fluids with improvement in blood pressure and heart rates and kidney function. On admission, her creatinine was noted to be elevated at 3.1 with baseline approximately White count noted to be elevated at 12.4 with repeat 6.8. Hemoglobin 11.5 down to 9.3 today. Troponins noted the 0.04, 0.03, 0.01. Hemoglobin A1c noted to be 7.4 with no prior documentation of diabetes mellitus. EKG shows sinus tachycardia with right bundle branch block and nonspecific minimal T-wave inversions. Has had mild lower extremity edema. Ultrasound lower extremity shows no DVT. D-dimer was mildly elevated and therefore VQ scan was performed which showed low probability of PE. 02/14/2022 Patient seen and examined, no acute distress. Patient still somewhat nauseous and vomiting yesterday. Has been receiving IV fluids with improvement in blood pressure and creatinine. Denies any chest pain or pressure. Echocardiogram revealed EF 5560%, trace mitral regurgitation. She is hypertensive today BP 160/89 Hr 78. All antihypertensive medication have been on hold since admission PHYSICAL EXAMINATION Vital signs reviewed. CONSTITUTIONAL: No apparent distress, chronically ill appearing, cushinoid facies HEENT: Head is normocephalic. No JVD. No carotid bruit. CHEST EXAMINATION: Lungs are clear to auscultation. No chest wall tenderness is noted on palpation or with deep breathing. HEART EXAMINATION: Regular rate and rhythm. S1, S2 heard. No murmurs, gallops or rub. ABDOMEN: Soft, nontender. Positive bowel sounds. EXTREMITIES: 2+ radial pulses, 1+ RLE edema. NEUROLOGIC EXAMINATION: Patient is awake, alert and oriented x3. ASSESSMENT Non-STEMI likely type II mechanism possibly related to sepsis, no acute ischemia on EKG. Echo EF 55-60%. Hypotension possibly septic shock, improved Hypertension Sinus tachycardia reactive secondary to likely sepsis Right lower extremity nonhealing ulcer Newly diagnosed diabetes mellitus, hemoglobin A1c 7.4 Anemia Urinary tract infection Acute kidney injury related to hypotension, improved PLAN Appears to be improving with supportive care. Troponins have trended down and d-dimer minimally elevated however VQ scan negative for PE. Echo with EF 55-60%. Continue with supportive care. Restart patient's home anti-hypertensives as tolerated. No further workup from cardiology perspective. We will follow the patient as needed. Please reconsult if needed. Nurse practitioner note has been reviewed by physician. Signing provider agrees with the documented findings, assessment, and plan of care. Objective - Vital Signs Vital signs: Vital Signs Temp 98.0 F 02/14/22 04:00 Pulse 92 02/14/22 04:00 Resp 18 02/14/22 04:00 BP 141/77 02/14/22 04:00 Pulse Ox 95 02/14/22 04:00 FiO2 Intake & Output 02/13/22 02/14/22 02/14/22 18:59 06:59 18:59 Output Total 200 600 Balance -200 -600 Weight 81.1 kg Output: Urine 200 600 Other: Voiding Method Toilet Toilet # Voids 1 - Labs CBC & Chem 7: 02/14/22 07:03 02/14/22 07:03 Labs: Abnormal Lab Results - Last 24 Hours (Table) 02/14/22 02/14/22 Range/Units 07:03 07:03 RBC 2.53 L (3.80-5.40) m/uL Hgb 8.3 L (11.4-16.0) gm/dL Hct 25.8 L (34.0-46.0) % MCV 101.7 H (80.0-100.0) fL Chloride 112 H (98-107) mmol/L Carbon Dioxide 21 L (22-30) mmol/L BUN 18 H (7-17) mg/dL Creatinine 1.12 H (0.52-1.04) mg/dL Magnesium 1.4 L (1.6-2.3) mg/dL Microbiology - Last 24 Hours (Table) 02/12/22 08:05 Urine Culture - Preliminary Urine,Voided Gram Neg Bacilli
[2022-02-14 15:29] LABS: % Iron Saturation 14.42 (12.00-45.00)
[2022-02-14] MEDS: VERAPAMIL SR 120 MG TABLET.ER PO SCH (16:10)
[2022-02-14] MEDS: ERTAPENEM 1 GM in SODIUM CHLORIDE 0.9% 50 ML IVPB SCH (16:10)
[2022-02-14 16:30] LABS: Glucose,Whole Blood 92 mg/dL (70-110)
--- NOTE | 2022-02-14 17:13 | CT ---
CT scan of the brain. History facial droop. Comparison none. FINDINGS: Images of the brain obtained with no contrast. Ventricles have normal size. There is no mass effect or midline shift. No sign of intracranial hemorr epifanio. No evidence of cerebral edema. Calvarium is intact. The skull base is intact. IMPRESSION: Negative unenhanced head CT scan.
[2022-02-14 17:53] LABS: Basophils % (A) 0 %; Eosinophils % (A) 1 %; HCT 25.9 % (34.0-46.0); HGB 8.5 gm/dL (11.4-16.0); Lymphocytes # (A) 1.4 k/uL (1.0-4.8); Lymphocytes % (A) 19 %; MCH 32.6 pg (25.0-35.0); MCHC 32.7 g/dL (31.0-37.0); MCV 99.8 fL (80.0-100.0); Mean Platelet Volume 7.2; Monocytes # (A) 0.4 k/uL (0-1.0); Monocytes % (A) 5 %; Neutrophils # (A) 5.3 k/uL (1.3-7.7); Neutrophils % (A) 73 %; Platelet Count 339 k/uL (150-450); RBC 2.59 m/uL (3.80-5.40); RDW 14.4 % (11.5-15.5); WBC 7.2 k/uL (3.8-10.6)
--- NOTE | 2022-02-14 18:00 | CT ---
EXAMINATION TYPE: CODE STROKE: CTA head neck DATE OF EXAM: 02/14/2022 COMPARISON: HISTORY: left eye vision change CT DLP: 615.6 mGycm Automated exposure control for dose reduction was used. CONTRAST: Performed with IV Contrast, patient injected with 65 mL of Isovue 370. Images obtained from the level of the aortic arch to the vertex of the brain with IV contrast Three-D postprocessed images. There is normal branching pattern of the great vessels on the aortic arch. There is arterial flow in both subclavian arteries. There is arterial flow in the common internal and external carotid arteries bilaterally. There is art erial flow in the vertebral basilar artery system. There is no evidence of carotid or vertebral arter y aneurysm or dissection. No evidence of stenosis. There is wide patency of the carotid artery bifurc ations. No evidence of plaque formation. There is arterial flow in the anterior middle and posterior cerebral arteries bilaterally. No mass ef fect. No evidence of intracranial aneurysm or neovascularity. Impression: negative cta brain and neck
[2022-02-14 18:05] LABS: Albumin 3.4 g/dL (3.5-5.0); Potassium 4.2 mmol/L (3.5-5.1); Total Bilirubin 0.1 mg/dL (0.2-1.3)
[2022-02-14 18:10] LABS: Partial Thromboplastin Time 24.2 sec (22.0-30.0); Prothrombin Time 10.7 sec (9.0-12.0)
--- NOTE | 2022-02-14 20:05 | P.PN ---
Subjective This is a pleasant 56 years old male with past medical history of Coronary Artery Disease, Fibromyalgia, , Migraines, Sjogren syndrome, DDD, MS, Right BBB, CKD, Tarsal tunnel syndrome, vertigo Patient is having a visiting nurse will find her tachycardic with heart rate around 145, patient was asymptomatic at that time with no chest pain or dyspnea or other complaints, her nurse referred her to the emergency room. Patient also reports difficulty urinating for the last 1-2 days. No dysuria or urgency. No diarrhea or abdominal pain or vomiting. She has mild headache and postural dizziness but no weakness or numbness. She has some nausea. She denies smoking, alcohol or illicit drug. She has history of right foot ulcer that she follow up with Dr. Mendez since November. The right foot is wrapped in a dressing and patient refused to be checked out however her right leg looks also warm and swollen. Patient is tachycardic on admission 122 and hypotensive 94/71. She was also hypotensive on admission 87/47 and 77/55. showing mild leukocytosis 12.4, rest o CBC is unremarkable. INR 1.0. Creatinine is elevated 3.1, compared to baseline of 0.8-1.1. First troponin was mildly elevated at 0.04, then came back to normal at 0.03 and 0.01. TSH is high at 6.1 but normal free T4 at 1.8. EKG showing sinus tachycardia at [address]-T changes. Chest x-ray: No acute cardiopulmonary process. In the emergency room patient received 2 L of normal saline. Bladder scan injected was 76-100 02/13/2022 Patient is present with difficulty urination secondary to UTI and she is responding to treatment with ceftriaxone. Vitals are stable and his creatinine is trending down to 1.49 today and she is on normal saline with 30 mL per hour lower to 75 mL/h. D-dimer is mildly elevated however VQ scan/pulmonary perfusion is low probability for PE. Right leg is negative for DVT, going to check the left leg ultrasound as well. Patient today is complaining of from migraine headache which is typical for her started on the left side goes on both superior area of the head and also to the neck, nonspecific in character, patient was asking for IV pain medication because of her nausea and vomiting associated with the migraine headache. 02/14/2022 Patient today reports easing in urination however urine culture came back positive for ESBL E. coli and her antibiotic was adjusted into ertapenem with ID team recommendation. Also she is kept on normal saline 75 mL/h. Her acute kidney injury is improving and her creatinine today down to 1.0. But because of her infection we will keep her IV fluid. Her migrainous headache started yesterday did not improve much this morning, although Reglan helped her nausea and vomiting and she could take Fioricet which helped her headache partially, we ended up: Neurology consult. Further workup showing echocardiogram with ejection fraction 55-60%, CT of the brain was negative for acute process while CTA of the brain and neck also was negative. She has constipation for 2 days but KUB is negative for obstruction. Review of systems CONSTITUTIONAL: No fever, no malaise, HEENT: No recent visual problems or hearing problems. Denied any sore throat. CARDIOVASCULAR: No orthopnea, PND, no palpitations, no syncope. PULMONARY: No shortness of breath, no cough, no hemoptysis. GASTROINTESTINAL: No diarrhea, Normoactive bowel sounds. NEUROLOGICAL: no weakness, no numbness. HEMATOLOGICAL: Denies any bleeding or petechiae. Active Medications Generic Name Dose Route Start Last Admin Trade Name Freq PRN Reason Stop Dose Admin Acetaminophen/Butalbital/Caffeine 1 each 02/14/22 08:49 02/14/22 13:13 Butalb/Apap/Caff 50-325-40mg Tab PO 1 each Q4HR PRN Administration Headache Acetaminophen/Codeine Phosphate 1 each 02/12/22 00:37 02/13/22 12:51 Acetaminophen-Codeine 300-30mg Tab PO 1 each Q6H PRN Administration Pain Ascorbic Acid 500 mg 02/12/22 09:00 02/14/22 09:29 Ascorbic Acid 500 Mg Tab PO 500 mg BID GRIFFIN Administration Cyclobenzaprine HCl 10 mg 02/12/22 00:37 Cyclobenzaprine 10 Mg Tab PO HS PRN Pain Diclofenac Sodium 2 gm 02/12/22 00:37 Diclofenac Sodium Gel 100 Gm Tube TOPICAL BID PRN Pain Protocol Ergocalciferol 1,250 mcg 02/12/22 09:00 02/12/22 09:21 Ergocalciferol 1,250 Mcg (50,000 Iu) Capsule PO 1,250 mcg Q30D GRIFFIN Administration Heparin Sodium (Porcine) 5,000 unit 02/13/22 00:00 02/14/22 16:10 Heparin Sodium,Porcine/Pf 5,000 Unit/0.5 Ml Syringe SQ 5,000 unit Q8HR GRIFFIN Administration Sodium Chloride 1,000 mls @ 75 mls/hr 02/13/22 10:15 02/14/22 17:53 Saline 0.9% IV 75 mls/hr .[id number] GRIFFIN Administration Ertapenem 1 gm/ Sodium 50 mls @ 100 mls/hr 02/14/22 14:00 02/14/22 16:10 Chloride IVPB 100 mls/hr DAILY@1400 GRIFFIN Administration Protocol Loratadine 10 mg 02/12/22 09:00 02/14/22 09:29 Loratadine 10 Mg Tab PO 10 mg DAILY GRIFFIN Administration Magnesium Oxide 400 mg 02/12/22 09:00 02/14/22 09:30 Magnesium Oxide 400 Mg Tab PO 400 mg BID GRIFFIN Administration Metoclopramide HCl 5 mg 02/14/22 08:56 02/14/22 13:18 Metoclopramide 5 Mg/Ml 2 Ml Vial IVP 5 mg Q6HR PRN Administration Nausea And Vomiting Metoprolol Tartrate 50 mg 02/12/22 09:00 02/14/22 09:29 Metoprolol Tartrate 50 Mg Tab PO 50 mg BID GRIFFIN Administration Miscellaneous Information 1 each 02/14/22 08:48 Magnesium Replacement Protocol 1 Each Misc MISCELLANE DAILY PRN Per Protocol Protocol Morphine Sulfate 2 mg 02/13/22 10:04 02/14/22 03:45 Morphine Sulfate 2 Mg/Ml Syringe IVP 2 mg Q4HR PRN Administration Pain/Discomfort Ondansetron HCl 8 mg 02/12/22 00:37 02/13/22 04:03 Ondansetron 4 Mg Tab PO 8 mg TID PRN Administration Nausea Ondansetron HCl 4 mg 02/13/22 09:32 02/14/22 03:45 Ondansetron 4 Mg/2 Ml Vial IVP 4 mg Q6HR PRN Administration Nausea And Vomiting Pantoprazole Sodium 40 mg 02/12/22 07:30 02/14/22 16:11 Pantoprazole 40 Mg Tablet PO 40 mg AC-BID GRIFFIN Administration Ropinirole HCl 10 mg 02/12/22 21:00 02/13/22 22:43 Ropinirole Hcl 4 Mg Tablet PO 10 mg HS GRIFFIN Administration Trazodone HCl 100 mg 02/12/22 21:00 02/13/22 21:17 Trazodone Hcl 100 Mg Tab PO 100 mg HS GRIFFIN Administration Verapamil HCl 120 mg 02/14/22 14:15 02/14/22 16:10 Verapamil Sr 120 Mg Tablet.Er PO 120 mg DAILY GRIFFIN Administration Zinc Sulfate 220 mg 02/12/22 09:00 02/14/22 09:29 Zinc Sulfate 220 Mg Cap PO 220 mg DAILY GRIFFIN Administration Zolpidem Tartrate 5 mg 02/13/22 07:13 Zolpidem 5 Mg Tab PO HS PRN SLEEP Objective - Vital Signs Vital signs: Vital Signs Temp 98.3 F 02/14/22 16:24 Pulse 102 H 02/14/22 16:24 Resp 18 02/14/22 16:24 BP 118/68 02/14/22 16:24 Pulse Ox 97 02/14/22 16:24 FiO2 Intake & Output 02/14/22 02/14/22 02/15/22 06:59 18:59 06:59 Output Total 600 Balance -600 Weight 81.1 kg Output: Urine 600 Other: Voiding Method Toilet Toilet # Voids 2 - Exam GENERAL: The patient is alert and oriented x3, not in any acute distress. Well developed, well nourished. HEENT: Pupils are round and equally reacting to light. EOMI. No scleral icterus. No conjunctival pallor. Normocephalic, atraumatic. No pharyngeal erythema. No thyromegaly. CARDIOVASCULAR: S1 and S2 present. No murmurs, rubs, or gallops. PULMONARY: Chest is clear to auscultation, no wheezing or crackles. ABDOMEN: Soft, nontender, nondistended, normoactive bowel sounds. No palpable organomegaly. MUSCULOSKELETAL: No joint swelling or deformity. -EXTREMITIES: No cyanosis, clubbing, or pedal edema. Right foot ulcer with no surrounding cellulitis NEUROLOGICAL: Gross neurological examination did not reveal any focal deficits. SKIN: No rashes. No petechiae - Labs CBC & Chem 7: 02/14/22 17:36 02/14/22 17:36 Labs: Abnormal Lab Results - Last 24 Hours (Table) 02/14/22 02/14/22 02/14/22 Range/Units 07:03 07:03 07:03 RBC 2.53 L (3.80-5.40) m/uL Hgb 8.3 L (11.4-16.0) gm/dL Hct 25.8 L (34.0-46.0) % MCV 101.7 H (80.0-100.0) fL Chloride 112 H (98-107) mmol/L Carbon Dioxide 21 L (22-30) mmol/L BUN 18 H (7-17) mg/dL Creatinine 1.12 H (0.52-1.04) mg/dL Glucose (74-99) mg/dL Magnesium 1.4 L (1.6-2.3) mg/dL Iron 42 L (50-170) ug/dL Ferritin 756.0 H (10.0-291.0) ng/mL Total Bilirubin (0.2-1.3) mg/dL Total Protein (6.3-8.2) g/dL Albumin (3.5-5.0) g/dL 02/14/22 02/14/22 Range/Units 17:36 17:36 RBC 2.59 L (3.80-5.40) m/uL Hgb 8.5 L (11.4-16.0) gm/dL Hct 25.9 L (34.0-46.0) % MCV (80.0-100.0) fL Chloride (98-107) mmol/L Carbon Dioxide (22-30) mmol/L BUN (7-17) mg/dL Creatinine 1.07 H (0.52-1.04) mg/dL Glucose 120 H (74-99) mg/dL Magnesium (1.6-2.3) mg/dL Iron (50-170) ug/dL Ferritin (10.0-291.0) ng/mL Total Bilirubin 0.1 L (0.2-1.3) mg/dL Total Protein 6.0 L (6.3-8.2) g/dL Albumin 3.4 L (3.5-5.0) g/dL Microbiology - Last 24 Hours (Table) 02/12/22 08:05 Urine Culture - Preliminary Urine,Voided Escherichia coli Assessment and Plan Assessment: Acute urinary tract infection secondary to ESBL bacteria Severe migrainous headache with suspected facial droop Acute kidney injury, improving Elevated troponin , acute coronary syndrome has been ruled out. No further workup needed for this constipation Chronic right foot wound, with right leg swelling and erythema suspicious for cellulitis Hypertension, currently hypotensive upon admission Hypothyroidism History of coronary artery disease Sjogren syndrome History of fibromyalgia History of degenerative disc disease History of multiple sclerosis Vertigo history of Plan: This is a pleasant 56 years old female who presents with acute kidney injury and elevated troponin Continue with normal saline Change antibiotics and to ertapenem per ID team Nephrology consult is appreciated Consult neurology for headache Reglan and Fioricet when necessary Monitor bladder scan Labs and medication were reviewed.. Continue same treatment. Continue with symptomatic treatment. Resume home medication. Monitor lytes and vitals. DVT and GI prophylaxis. Further recommendations depends on the clinical course of the patient DVT prophylaxis: Subcutaneous heparin GI Prophylaxis: Ppi PT/OT: Pending Prognosis is guarded
[2022-02-14] MEDS: rOPINIRole HCL 4 MG TABLET PO SCH (21:06)
[2022-02-14] MEDS: traZODone HCL 100 MG TAB PO SCH (22:23)
[2022-02-14] MEDS: ZOLPIDEM 5 MG TAB PO PRN (22:24)
--- NOTE | 2022-02-14 23:42 | P.PN ---
Subjective Progress Note Date: 02/13/22 Principal diagnosis: Urinary tract infection and right ankle wound Patient is a 56-year-old female with multiple comorbidities presenting to the hospital with not feeling well she was noticed to have a low-grade fever and there is concern for possible UTI patient also have a wound to the right dorsal ankle for an infected ankle for which the patient has completed her antibiotic therapy. On today's evaluation that is 02/13/2022, the patient denies having any fever or any chills, the patient is breathing comfortably, denies any chest pain shortness of breath or cough no abdominal pain or pain to the right ankle area Objective - Vital Signs Vital signs: Vital Signs Temp 97.9 F 02/13/22 12:18 Pulse 102 H 02/13/22 12:18 Resp 14 02/13/22 09:17 BP 123/87 02/13/22 12:18 Pulse Ox 100 02/13/22 12:18 FiO2 Intake & Output 02/12/22 02/13/22 02/13/22 18:59 06:59 18:59 Intake Total 520 1040 Output Total 1100 800 Balance -580 240 Weight 81.647 kg 80.3 kg Intake: Intake, IV Titration 520 1040 Amount Sodium Chloride 0.9% 1, 520 1040 000 ml @ 130 mls/hr IV . [id number] [facility] Rx#:[id number] Output: Urine 1100 800 Other: Voiding Method Toilet # Voids 1 1 - Exam GENERAL DESCRIPTION: Middle-age female lying in bed in no distress RESPIRATORY SYSTEM: Unlabored breathing , decreased breath sounds at bases HEART: S1 S2 regular rate and rhythm , ABDOMEN: Soft , no tenderness EXTREMITIES: Right ankle wound is currently dressed no drainage on the dressing - Labs CBC & Chem 7: 02/14/22 17:36 02/14/22 17:36 Labs: Abnormal Lab Results - Last 24 Hours (Table) 02/12/22 02/13/22 02/13/22 Range/Units 16:01 06:32 07:03 RBC 2.68 L (3.80-5.40) m/uL Hgb 8.7 L (11.4-16.0) gm/dL Hct 26.6 L (34.0-46.0) % D-Dimer 0.63 H (<0.60) mg/L FEU Chloride 116 H (98-107) mmol/L Carbon Dioxide 19 L (22-30) mmol/L BUN 30 H (7-17) mg/dL Creatinine 1.49 H (0.52-1.04) mg/dL Microbiology - Last 24 Hours (Table) 02/12/22 08:05 Urine Culture - Preliminary Urine,Voided Gram Neg Bacilli Assessment and Plan (1) UTI (urinary tract infection) Current Visit: No Status: Acute Code(s): N39.0 - URINARY TRACT INFECTION, SITE NOT SPECIFIED SNOMED Code(s): 99338806 Plan: 1patient presented hospital with not feeling well weakness which is likely multifactorial for possible prerenal/dehydration as we did have elevated BUN/creatinine patient did have mild elevated white count which could be hemoconcentration plus minus a component of UTI likely from enteric gram- negative patient right ankle wound is healing with no evidence of any cellulitis. 2patient to continue with Rocephin in view of clinical response and while waiting for the culture to finalize. 3local wound care to the right ankle wound with Hydrofera Blue dressing change every 48 hour. Time with Patient: Less than 30
--- NOTE | 2022-02-14 23:44 | P.PN ---
Subjective Progress Note Date: 02/14/22 Principal diagnosis: Urinary tract infection and right ankle wound Patient is a 56-year-old female with multiple comorbidities presenting to the hospital with not feeling well she was noticed to have a low-grade fever and there is concern for possible UTI patient also have a wound to the right dorsal ankle for an infected ankle for which the patient has completed her antibiotic therapy. On today's evaluation that is 02/14/2022, the patient has been afebrile, the pat ient is breathing comfortably on room air, the patient denies any chest pain shortness of breath or cough no abdominal pain or pain to the right ankle area Objective - Vital Signs Vital signs: Vital Signs Temp 98.2 F 02/14/22 11:37 Pulse 78 02/14/22 11:37 Resp 18 02/14/22 11:37 BP 160/89 02/14/22 11:37 Pulse Ox 99 02/14/22 11:37 FiO2 Intake & Output 02/13/22 02/14/22 02/14/22 18:59 06:59 18:59 Output Total 200 600 Balance -200 -600 Weight 81.1 kg Output: Urine 200 600 Other: Voiding Method Toilet Toilet Toilet # Voids 1 - Exam GENERAL DESCRIPTION: Middle-age female lying in bed in no distress RESPIRATORY SYSTEM: Unlabored breathing , decreased breath sounds at bases HEART: S1 S2 regular rate and rhythm , ABDOMEN: Soft , no tenderness EXTREMITIES: Right ankle wound base looks clean no slough tissue, No surrounding redness - Labs CBC & Chem 7: 02/14/22 17:36 02/14/22 17:36 Labs: Abnormal Lab Results - Last 24 Hours (Table) 02/14/22 02/14/22 Range/Units 07:03 07:03 RBC 2.53 L (3.80-5.40) m/uL Hgb 8.3 L (11.4-16.0) gm/dL Hct 25.8 L (34.0-46.0) % MCV 101.7 H (80.0-100.0) fL Chloride 112 H (98-107) mmol/L Carbon Dioxide 21 L (22-30) mmol/L BUN 18 H (7-17) mg/dL Creatinine 1.12 H (0.52-1.04) mg/dL Magnesium 1.4 L (1.6-2.3) mg/dL Microbiology - Last 24 Hours (Table) 02/12/22 08:05 Urine Culture - Preliminary Urine,Voided Escherichia coli Assessment and Plan (1) UTI (urinary tract infection) Current Visit: No Status: Acute Code(s): N39.0 - URINARY TRACT INFECTION, SITE NOT SPECIFIED SNOMED Code(s): 67165727 Plan: 1patient presented hospital with not feeling well weakness which is likely multifactorial for possible prerenal/dehydration as we did have elevated BUN /creatinine patient did have mild elevated white count which could be hemoconcentration plus minus a component of UTI likely from enteric gram- negative patient right ankle wound is healing with no evidence of any cellulitis. 2patient to continue local wound care to the right ankle wound with Hydrofera Blue dressing change every 48 hour. 3-Semaj culture has been finalized with ESBL E. coli. We will discontinue Rocephin and start the patient on Invanz 1 g daily Time with Patient: Less than 30
[2022-02-15 03:51] LABS: Appearance,Urine Clear (Clear); Bilirubin,Urine Negative (Negative); Blood,Urine Negative (Negative); Color,Urine Light Yellow; Glucose,Urine (UA) Trace (Negative); Hyaline Casts,Urine 1 /lpf (0-2); Ketones,Urine 1+ (Negative); Leukocyte Esterase,Urine Trace (Negative); Mucus,Urine Rare /hpf; Nitrite,Urine Negative (Negative); Protein,Urine Negative (Negative); RBC,Urine <1 /hpf (0-5); Specific Gravity,Urine 1.027 (1.001-1.035); Squamous Epithelial Cell,Urine <1 /hpf (0-4); Urobilinogen,Urine <2.0 mg/dL (<2.0); WBC,Urine 2 /hpf (0-5)
[2022-02-15] MEDS: PANTOPRAZOLE 40 MG TABLET PO SCH ×2 (06:16→16:47)
[2022-02-15] MEDS: SODIUM CHLORIDE 0.9% 1,000 ML IV SCH (06:17)
[2022-02-15] MEDS: METOCLOPRAMIDE 5 MG/ML 2 ML VIAL IVP PRN ×2 (06:36→16:51)
[2022-02-15 08:05] LABS: Basophils % (A) 0 %; Eosinophils % (A) 0 %; HCT 24.4 % (34.0-46.0); HGB 7.9 gm/dL (11.4-16.0); Lymphocytes # (A) 1.2 k/uL (1.0-4.8); Lymphocytes % (A) 22 %; MCH 31.8 pg (25.0-35.0); MCHC 32.5 g/dL (31.0-37.0); Mean Platelet Volume 6.8; Monocytes # (A) 0.4 k/uL (0-1.0); Monocytes % (A) 7 %; Neutrophils # (A) 3.7 k/uL (1.3-7.7); Neutrophils % (A) 69 %; Platelet Count 323 k/uL (150-450); RBC 2.49 m/uL (3.80-5.40); RDW 14.5 % (11.5-15.5); WBC 5.3 k/uL (3.8-10.6)
[2022-02-15 08:30] LABS: Calcium 8.6 mg/dL (8.4-10.2); Magnesium 1.7 mg/dL (1.6-2.3); Potassium 3.7 mmol/L (3.5-5.1)
[2022-02-15] MEDS: MAGNESIUM OXIDE 400 MG TAB PO SCH ×2 (09:22→20:38)
[2022-02-15] MEDS: METOPROLOL TARTRATE 50 MG TAB PO SCH ×2 (09:22→20:38)
[2022-02-15] MEDS: ASCORBIC ACID 500 MG TAB PO SCH ×2 (09:22→20:38)
[2022-02-15] MEDS: ZINC SULFATE 220 MG CAP PO SCH (09:22)
[2022-02-15] MEDS ORDERED: POTASSIUM CHLORIDE ER 20 MEQ TAB.ER PO STA (09:22)
[2022-02-15] MEDS: HEPARIN SODIUM,PORCINE/PF 5,000 UNIT/0.5 ML SYRINGE SQ SCH ×3 (09:22→23:34)
[2022-02-15] MEDS: LORATADINE 10 MG TAB PO SCH (09:22)
[2022-02-15] MEDS: VERAPAMIL SR 120 MG TABLET.ER PO SCH (09:23)
[2022-02-15] MEDS: MAGNESIUM SULFATE-D5W PMX 1 GM in DEXTROSE/WATER 1 100ML.BAG IVPB SCH ×2 (09:29→12:28)
--- NOTE | 2022-02-15 09:29 | P.PN ---
Subjective Patient is seen in follow-up for acute kidney injury. Renal function improving. On IV fluids. Good urine output. Oral intake fair. No vomiting or diarrhea. No active complaints. Vital signs are stable. General: Awake. No acute distress. HEENT: Head exam is unremarkable. LUNGS: Breath sounds decreased. HEART: Rate and Rhythm are regular. ABDOMEN: Soft, no distention. EXTREMITITES: No edema. Objective - Vital Signs Vital signs: Vital Signs Temp 97.8 F 02/15/22 03:40 Pulse 84 02/15/22 03:40 Resp 16 02/15/22 03:40 BP 145/90 02/15/22 03:40 Pulse Ox 99 02/15/22 03:40 FiO2 Intake & Output 02/14/22 02/15/22 02/15/22 18:59 06:59 18:59 Intake Total 1350 Output Total 1325 Balance 25 Intake: Intake, IV Titration 900 Amount Sodium Chloride 0.9% 1, 900 000 ml @ 75 mls/hr IV . [id number] [facility] Rx#:[id number] Oral 450 Output: Urine 1325 Other: Voiding Method Toilet Toilet # Voids 2 - Labs CBC & Chem 7: 02/15/22 07:41 02/15/22 07:41 Labs: Abnormal Lab Results - Last 24 Hours (Table) 02/14/22 02/14/22 02/14/22 Range/Units 07:03 17:36 17:36 RBC 2.59 L (3.80-5.40) m/uL Hgb 8.5 L (11.4-16.0) gm/dL Hct 25.9 L (34.0-46.0) % Chloride (98-107) mmol/L Carbon Dioxide (22-30) mmol/L Creatinine 1.07 H (0.52-1.04) mg/dL Glucose 120 H (74-99) mg/dL Iron 42 L (50-170) ug/dL Ferritin 756.0 H (10.0-291.0) ng/mL Total Bilirubin 0.1 L (0.2-1.3) mg/dL Total Protein 6.0 L (6.3-8.2) g/dL Albumin 3.4 L (3.5-5.0) g/dL Urine Glucose (UA) (Negative) Urine Ketones (Negative) Ur Leukocyte Esterase (Negative) Urine Mucus (None) /hpf 02/15/22 02/15/22 02/15/22 Range/Units 03:36 07:41 07:41 RBC 2.49 L (3.80-5.40) m/uL Hgb 7.9 L (11.4-16.0) gm/dL Hct 24.4 L (34.0-46.0) % Chloride 109 H (98-107) mmol/L Carbon Dioxide 21 L (22-30) mmol/L Creatinine (0.52-1.04) mg/dL Glucose (74-99) mg/dL Iron (50-170) ug/dL Ferritin (10.0-291.0) ng/mL Total Bilirubin (0.2-1.3) mg/dL Total Protein (6.3-8.2) g/dL Albumin (3.5-5.0) g/dL Urine Glucose (UA) Trace H (Negative) Urine Ketones 1+ H (Negative) Ur Leukocyte Esterase Trace H (Negative) Urine Mucus Rare H (None) /hpf Microbiology - Last 24 Hours (Table) 02/12/22 08:05 Urine Culture - Final Urine,Voided Escherichia coli Corynebacterium urealyticum(D2 Assessment and Plan Plan: Assessment: 1. Acute kidney injury mostly prerenal secondary to hypotension and hypovolemia improving with IV hydration. Creatinine 0.97 today. Baseline creatinine near 1. 2. NSTEMI. Cardiology following. 3. UTI on antibiotics. Urine culture positive for E. coli and Corynebacterium. 4. Hypomagnesemia from poor intake. Replaced. Better. On oral magnesium oxide. 5. Anemia. Iron deficiency noted. Plan: Hep-Lock IV fluids. Continue to monitor renal function and urine output. Ejection fraction preserved. Received IV contrast for CTA of the head and neck on 02/14/2022 which was negative. Will need to monitor for contrast induced injury. It gets discharged today, will need BMP and magnesium level checked 2-3 days postdischarge. Follow up outpatient in 1 week.
--- NOTE | 2022-02-15 10:36 | P.CNNES ---
History of Present Illness Consult date: 02/15/22 Requesting physician: Alfredo E Gildardo Reason for Consult: left sided facial droop History of Present Illness: This is a 56-year-old woman with history of multiple sclerosis, migraine, fibromyalgia, right bundle branch block, Sjogren syndrome, coronary artery disease, vertigo who presented to the hospital because of tachycardia. Neurology is consulted for left facial droop noticed on 02/14/2022. Some of the history is obtained from the patient's nurse who had her yesterday. During this hospital visit she has right lower extremity cellulitis. It seems that yesterday in the late afternoon patient was complaining of left facial weakness to the nurse according to the nurse. To me she notified me that she noticed t hat her face was puffy on the left side/swollen but denied any difficulty getting her words out and had some headaches but not out of the ordinary. She had some numbness over the left side of the face. As a result of stroke code was activated yesterday. Patient had CT of the head which is reported as negative unenhanced head CT scan. I personally reviewed the CT of the head and I agree with the report. Patient also had CT angiography of the head and neck which is reported as negative. The nurse spoke with the stroke team and the patient was not a TPA candidate since it was not felt like a stroke and the risk away but absent possibly was patient has MS exacerbation and they asked for neurology to be consulted. Currently the patient is not having any headaches. It seems the patient headache is controlled with Fioricet. She is also getting Reglan when necessary. As stated earlier patient denies of any headaches currently or any neck pain. Patient is seeing Dr. Kolb's team regarding management for her Multiple Sclerosis which she had for years. I reviewed the the primary team's note and it seems the patient was having migraine for past two days which was typical for headache and then she had left- sided facial droop and she was having nausea vomiting. Patient was getting Reglan and Fioricet Some of the workup during his hospital visit consisted of: TSH is 6.140 which is elevated in the free T4 is 1.81 which is considered normal On initial presentation patient's creatinine was 3.15 at which resolved and now normalized Patient has acute urinary tract infection with urine culture of ESBL bacteria 2-D echo was reported as preserved left ventricular systolic function. Ejection fraction greater than 55-60%. Left atrium is normal size. Review of Systems Review of system: The 12 point system was reviewed and apparent positive and negative per HPI. Past Medical History Past Medical History: Coronary Artery Disease (CAD), Chest Pain / Angina, Fibromyalgia, Musculoskeletal Disorder, Renal Disease Additional Past Medical History / Comment(s): Migraines, Shrgren syndrome, DDD, MS,. Right BBB, CKD, Tarsal tunnel syndrome, vertigo History of Any Multi-Drug Resistant Organisms: ESBL Date of last positivie culture/infection: 03/22/21 MDRO Source:: ESBL URINE Past Surgical History: Appendectomy, Hysterectomy, Orthopedic Surgery Additional Past Surgical History / Comment(s): right ankle, abdominal laparoscopies, Prexacral Neurectomy, Cryosurgery, Past Anesthesia/Blood Transfusion Reactions: No Reported Reaction Smoking Status: Never smoker - Past Family History Father Family Medical History: AICD/Pacemaker, Congestive Heart Failure (CHF), COPD, Diabetes Mellitus, Myocardial Infarction ([place]) Additional Family Medical History / Comment(s): Father at age 83 in his sleep. He has history of AICD. Mother Family Medical History: Hypertension Additional Family Medical History / Comment(s): Mother is alive at age 77 with history of hypertension and bronchiectasis. Patient has 2 brothers with no major medical problems. Patient does not have any sisters. Patient is one daughter with no major medical problems. Medications and Allergies Home Medications Medication Instructions Recorded Confirmed Type Cyclobenzaprine [Flexeril] 10 mg PO HS 09/27/17 02/11/22 History Pilocarpine HCl [Salagen] 5 mg PO TID 09/27/17 02/11/22 History rOPINIRole HCL [Requip] 10 mg PO HS 09/27/17 02/11/22 History Dextroamphetamine Sulfate 15 mg PO BID 12/20/18 02/11/22 History [Dexedrine] Ascorbic Acid [Vitamin C] 500 mg PO BID 11/25/19 02/11/22 History Cetirizine HCl 10 mg PO DAILY 03/23/21 02/11/22 History Diclofenac Sodium Gel [Voltaren 2 gm TOPICAL BID PRN 03/23/21 02/11/22 History Gel] Verapamil HCl [Verapamil ER] 120 mg PO DAILY 03/23/21 02/11/22 History Zolpidem [Ambien] 10 mg PO HS PRN 03/23/21 02/11/22 History ondansetron HCL [Zofran] 8 mg PO TID PRN 03/23/21 02/11/22 History Azilsartan Med/Chlorthalidone 1 tab PO DAILY 11/17/21 02/11/22 History [Edarbyclor 40-25 mg Tablet] Elderberry Fruit and Flower [Black 2 cap PO W/SUPPER 11/17/21 02/11/22 History Elderberry 575 mg Cap] Ergocalciferol (Vitamin D2) 1,250 mcg PO Q30D 11/17/21 02/11/22 History [Drisdol (50,000 Iu)] Magnesium Oxide [Mag-Ox] 400 mg PO BID 11/17/21 02/11/22 History Metoprolol Tartrate [Lopressor] 50 mg PO BID 11/17/21 02/11/22 History Zinc 50 mg PO BID 11/17/21 02/11/22 History traZODone HCL [Desyrel] 100 mg PO HS 11/17/21 02/11/22 History Acetaminophen-Codeine 300-30mg 1 tab PO Q6H PRN 02/11/22 02/11/22 History [Tylenol w/codeine #3] Pantoprazole [Protonix] 40 mg PO BID 02/11/22 02/11/22 History Allergies Allergy/AdvReac Type Severity Reaction Status Date / Time aspirin AdvReac Abdominal Verified 02/11/22 22:19 Pain Physical Examination - Vital Signs Vital Signs: Vital Signs Temp Pulse Pulse Resp BP Pulse Ox 02/15/22 03:40 97.8 F 84 16 145/90 99 02/14/22 23:17 98.7 F 83 18 122/76 96 02/14/22 20:00 98.8 F 112 H 16 130/78 95 02/14/22 16:24 98.3 F 102 H 18 118/68 97 02/14/22 11:37 98.2 F 78 18 160/89 99 02/14/22 09:25 98.6 F 73 73 16 157/90 99 Intake and Output 02/14/22 02/15/22 02/15/22 22:59 06:59 14:59 Intake Total 1350 Output Total 650 675 Balance -650 675 Intake: Intake, IV Titration 900 Amount Sodium Chloride 0.9% 1, 900 000 ml @ 75 mls/hr IV . [id number] [facility] Rx#:[id number] Oral 450 Output: Urine 650 675 Other: Voiding Method Toilet Toilet GENERAL: The patient is lying in bed and is not in acute distress. HENT: Supple neck. Has left periorbital edema and left facial edema (cheek region predominately), warm to touch and erythematous. CHEST: The heart rate is regular rate rhythm. No murmurs to auscultation. LUNG: Clear to auscultation bilaterally no wheezing noted throughout. Not labored breathing. ABDOMEN/GI: Bowel sounds present in all 4 quadrants. No tenderness to palpation throughout. NEUROLOGICAL: Higher mental function: The patient is awake, alert, oriented to self, place and time. Patient is following commands. No aphasia and no neglect. Cranial nerves: The pupils are round, equal and reactive to light and accommodation. Has left periorbital edema and left cheek edema and warm to touch with reddish erythema. Visual rucker are full to confrontation throughout. Extraocular movement is intact no nystagmus is noted. Facial sensation is normal to touch throughout. The facial strength is normal throughout. Hearing is normal bilaterally to hand rub. Tongue is midline and moved [id number] without any difficulty. No dysarthria is noted. Shoulder shrug is normal bilaterally. Motor: The strength is 5 over 5 throughout except the right ankle was limited because of her cellulitis. Has wrappage of the right foot/ankle (has cellulitis). Normal tone and bulk. Cerebellum: Normal finger to nose bilaterally. Sensation: Sensation is normal to touch throughout. Reflexes (right/left): 3+ triceps bilaterally, left biceps 3+. Patellar 3+. Otherwise 2+ throughout. Plantars are mute bilaterally. Results - Laboratory Findings CBC and BMP: 02/15/22 07:41 02/15/22 07:41 Abnormal Lab Findings: Abnormal Labs 02/11/22 02/11/22 02/11/22 19:48 19:48 19:48 WBC 12.4 H RBC 3.57 L Hgb Hct MCV Plt Count 531 H Neutrophils # 9.3 H APTT 21.6 L D-Dimer Chloride Carbon Dioxide 21 L BUN 61 H Creatinine 3.15 H Glucose 120 H Hemoglobin A1c Calcium 11.1 H Magnesium Iron Ferritin Total Bilirubin Alkaline Phosphatase 138 H Troponin I Total Protein 8.5 H Albumin TSH 6.140 H Urine Protein Urine Glucose (UA) Urine Ketones Ur Leukocyte Esterase Urine WBC Amorphous Sediment Urine Bacteria Hyaline Casts Urine Mucus 02/11/22 02/12/22 02/12/22 19:48 07:42 07:42 WBC RBC 2.81 L Hgb 9.3 L D Hct 29.7 L MCV 105.7 H D Plt Count Neutrophils # APTT D-Dimer Chloride 112 H Carbon Dioxide 18 L BUN 49 H Creatinine 2.58 H Glucose Hemoglobin A1c Calcium Magnesium Iron Ferritin Total Bilirubin Alkaline Phosphatase Troponin I 0.040 H* Total Protein Albumin TSH Urine Protein Urine Glucose (UA) Urine Ketones Ur Leukocyte Esterase Urine WBC Amorphous Sediment Urine Bacteria Hyaline Casts Urine Mucus 02/12/22 02/12/22 02/12/22 07:42 08:05 16:01 WBC RBC Hgb Hct MCV Plt Count Neutrophils # APTT D-Dimer 0.63 H Chloride Carbon Dioxide BUN Creatinine Glucose Hemoglobin A1c 7.4 H Calcium Magnesium Iron Ferritin Total Bilirubin Alkaline Phosphatase Troponin I Total Protein Albumin TSH Urine Protein Trace H Urine Glucose (UA) Urine Ketones 1+ H Ur Leukocyte Esterase Large H Urine WBC 23 H Amorphous Sediment Rare H Urine Bacteria Rare H Hyaline Casts 20 H Urine Mucus Rare H 02/13/22 02/13/22 02/14/22 06:32 07:03 07:03 WBC RBC 2.68 L 2.53 L Hgb 8.7 L 8.3 L Hct 26.6 L 25.8 L MCV 101.7 H Plt Count Neutrophils # APTT D-Dimer Chloride 116 H Carbon Dioxide 19 L BUN 30 H Creatinine 1.49 H Glucose Hemoglobin A1c Calcium Magnesium Iron Ferritin Total Bilirubin Alkaline Phosphatase Troponin I Total Protein Albumin TSH Urine Protein Urine Glucose (UA) Urine Ketones Ur Leukocyte Esterase Urine WBC Amorphous Sediment Urine Bacteria Hyaline Casts Urine Mucus 02/14/22 02/14/22 02/14/22 07:03 07:03 17:36 WBC RBC 2.59 L Hgb 8.5 L Hct 25.9 L MCV Plt Count Neutrophils # APTT D-Dimer Chloride 112 H Carbon Dioxide 21 L BUN 18 H Creatinine 1.12 H Glucose Hemoglobin A1c Calcium Magnesium 1.4 L Iron 42 L Ferritin 756.0 H Total Bilirubin Alkaline Phosphatase Troponin I Total Protein Albumin TSH Urine Protein Urine Glucose (UA) Urine Ketones Ur Leukocyte Esterase Urine WBC Amorphous Sediment Urine Bacteria Hyaline Casts Urine Mucus 02/14/22 02/15/22 02/15/22 17:36 03:36 07:41 WBC RBC Hgb Hct MCV Plt Count Neutrophils # APTT D-Dimer Chloride 109 H Carbon Dioxide 21 L BUN Creatinine 1.07 H Glucose 120 H Hemoglobin A1c Calcium Magnesium Iron Ferritin Total Bilirubin 0.1 L Alkaline Phosphatase Troponin I Total Protein 6.0 L Albumin 3.4 L TSH Urine Protein Urine Glucose (UA) Trace H Urine Ketones 1+ H Ur Leukocyte Esterase Trace H Urine WBC Amorphous Sediment Urine Bacteria Hyaline Casts Urine Mucus Rare H 02/15/22 07:41 WBC RBC 2.49 L Hgb 7.9 L Hct 24.4 L MCV Plt Count Neutrophils # APTT D-Dimer Chloride Carbon Dioxide BUN Creatinine Glucose Hemoglobin A1c Calcium Magnesium Iron Ferritin Total Bilirubin Alkaline Phosphatase Troponin I Total Protein Albumin TSH Urine Protein Urine Glucose (UA) Urine Ketones Ur Leukocyte Esterase Urine WBC Amorphous Sediment Urine Bacteria Hyaline Casts Urine Mucus Assessment and Plan Assessment: Edema, erythema and warm to touch over the left side: Appears cellulitis. Does not appear like MS exacerbation or Complicated migraine (currently does not have headache). Acute UTI Acute Kidney disease---resolved Chronic right foot won't with the right leg swelling and erythema suspicious for cellulitis Hypothyroidism History of coronary artery disease Shortness syndrome History of vertigo History of Migraine who continues to have headache History of Multiple Sclerosis Fibromyalgia Plan: I ordered MRI of the brain with and without to rule out any MS exacerbation. I'll hold off starting any steroids last the MRI suggestive of MS exacerbation secondly patient has likely cellulitis. Currently the patient is on verapamil 120 mg daily for headache, she is also on Fioricet when necessary, Reglan when necessary ID is on board for her possible cellulitis as well as her urinary tract infection. Every 4 hours neuro checks We'll defer the rest of the medical management to primary team The plan is discussed with patient and nurse. Thank you for the consultation. Charles Brown M.D. Neuro-Hospitalist Time with Patient: Greater than 30
[2022-02-15] MEDS: SODIUM FERRIC GLUCONAT-SUCROSE 125 MG in SODIUM CHLORIDE 0.9% 100 ML IVPB SCH (11:25)
--- NOTE | 2022-02-15 15:13 | P.PN ---
Subjective Progress Note Date: 02/15/22 This is a 56 year old female who presents with urinary discomfort found to have ESBL UTI and acute kidney injury. She was started on IV invanz by infectious disease. Patient also reports 2 day history of frontal headache rated a 4/10 with associated dizziness. No vision changes, no ear pain, ear fullness, no sinus congestion, jaw pain. No sore throat or dysphagia noted. Patient was started on fioricet yesterday morning which has helped the headache. She was a code stroke yesterday for left sided facial droop. Today there is no droop however she has significant periorbital edema on the left side. No wheezing or respiratory distress. Neuro has been consulted. Patient is pending MRI today. Patient has temp 99, heart rate 85, blood pressure 144/91, 99% room air. Labs reviewed today showing white count 5.3, hemoglobin 7.9, sodium 137, potassium 3.7, BUN 10, creatinine 0.97, magnesium 1.7. Review of Systems Constitutional: Denied any fatigue denied any fever. Cardio vascular: denied any chest pain, palpitations Gastrointestinal: denied any nausea, vomiting, diarrhea Pulmonary: Denied any shortness of breath cough Neurologic denied any new focal deficits All inpatient medications were reviewed and appropriate changes in these medications as dictated in the interval history and assessment and plan. PHYSICAL EXAMINATION: GENERAL: The patient is alert and oriented x3, not in any acute distress. Well developed, well nourished. HEENT: Pupils are round and equally reacting to light. EOMI. No scleral icterus. No conjunctival pallor. Normocephalic, atraumatic. No pharyngeal erythema. No thyromegaly. Left periorbital edema. CARDIOVASCULAR: S1 and S2 present. No murmurs, rubs, or gallops. PULMONARY: Chest is clear to auscultation, no wheezing or crackles. ABDOMEN: Soft, nontender, nondistended, normoactive bowel sounds. No palpable organomegaly. MUSCULOSKELETAL: No joint swelling or deformity. EXTREMITIES: No cyanosis, clubbing, or pedal edema. NEUROLOGICAL: Gross neurological examination did not reveal any focal deficits. SKIN: No rashes. Assessment and Plan Assessment Acute ESBL UTI Severe migrainous headache with suspected facial droop Left periorbital edema ongoing work up Acute kidney injury, improving Elevated troponin , acute coronary syndrome has been ruled out. Anemia, iron deficient, check B12 Folate Constipation Chronic right foot wound, with right leg swelling and erythema suspicious for cellulitis Hypertension, currently hypotensive upon admission Hypothyroidism History of coronary artery disease Sjogren syndrome History of fibromyalgia History of degenerative disc disease History of multiple sclerosis Vertigo history of DVT Prophylaxis GI Prophylaxis Full Code Plan Pending MRI today Discontinue Fioricet Appreciate ID, neuro, nephro consultation Continue IV invanz Continue local wound care Continue IV ferrlecit Repeat labs The impression and plan of care has been dictated by Hoda Neely, Nurse Practitioner as directed. Dr. Mann MD I have performed a history and physical examination and medical decision making of this patient, discussed the same with the dictator, and agree with the dictators assessment and plan as written, documented as a scribe. Based on total visit time, I have performed more than 50% of this visit. Objective - Vital Signs Vital signs: Vital Signs Temp 99 F 02/15/22 09:20 Pulse 85 02/15/22 09:20 Resp 16 02/15/22 09:20 BP 144/91 02/15/22 09:20 Pulse Ox 99 02/15/22 09:20 FiO2 Intake & Output 02/14/22 02/15/22 02/15/22 18:59 06:59 18:59 Intake Total 1350 Output Total 1325 Balance 25 Intake: Intake, IV Titration 900 Amount Sodium Chloride 0.9% 1, 900 000 ml @ 75 mls/hr IV . [id number] [facility] Rx#:[id number] Oral 450 Output: Urine 1325 Other: Voiding Method Toilet Toilet Toilet # Voids 2 - Labs CBC & Chem 7: 02/15/22 07:41 02/15/22 07:41 Labs: Abnormal Lab Results - Last 24 Hours (Table) 02/14/22 02/14/22 02/14/22 Range/Units 07:03 17:36 17:36 RBC 2.59 L (3.80-5.40) m/uL Hgb 8.5 L (11.4-16.0) gm/dL Hct 25.9 L (34.0-46.0) % Chloride (98-107) mmol/L Carbon Dioxide (22-30) mmol/L Creatinine 1.07 H (0.52-1.04) mg/dL Glucose 120 H (74-99) mg/dL Iron 42 L (50-170) ug/dL Ferritin 756.0 H (10.0-291.0) ng/mL Total Bilirubin 0.1 L (0.2-1.3) mg/dL Total Protein 6.0 L (6.3-8.2) g/dL Albumin 3.4 L (3.5-5.0) g/dL Urine Glucose (UA) (Negative) Urine Ketones (Negative) Ur Leukocyte Esterase (Negative) Urine Mucus (None) /hpf 02/15/22 02/15/22 02/15/22 Range/Units 03:36 07:41 07:41 RBC 2.49 L (3.80-5.40) m/uL Hgb 7.9 L (11.4-16.0) gm/dL Hct 24.4 L (34.0-46.0) % Chloride 109 H (98-107) mmol/L Carbon Dioxide 21 L (22-30) mmol/L Creatinine (0.52-1.04) mg/dL Glucose (74-99) mg/dL Iron (50-170) ug/dL Ferritin (10.0-291.0) ng/mL Total Bilirubin (0.2-1.3) mg/dL Total Protein (6.3-8.2) g/dL Albumin (3.5-5.0) g/dL Urine Glucose (UA) Trace H (Negative) Urine Ketones 1+ H (Negative) Ur Leukocyte Esterase Trace H (Negative) Urine Mucus Rare H (None) /hpf Microbiology - Last 24 Hours (Table) 02/12/22 08:05 Urine Culture - Final Urine,Voided Escherichia coli Corynebacterium urealyticum(D2 Assessment and Plan Time with Patient: Less than 30
[2022-02-15] MEDS: ERTAPENEM 1 GM in SODIUM CHLORIDE 0.9% 50 ML IVPB SCH (16:46)
[2022-02-15] MEDS: BUTALB/APAP/CAFF 50-325-40MG TAB PO PRN (16:51)
[2022-02-15] MEDS: traZODone HCL 100 MG TAB PO SCH (20:38)
[2022-02-15] MEDS: rOPINIRole HCL 4 MG TABLET PO SCH (20:38)
[2022-02-15] MEDS: ZOLPIDEM 5 MG TAB PO PRN (20:40)
[2022-02-16] MEDS: BUTALB/APAP/CAFF 50-325-40MG TAB PO PRN ×2 (04:37→11:39)
[2022-02-16] MEDS: PANTOPRAZOLE 40 MG TABLET PO SCH (06:27)
[2022-02-16 08:28] LABS: Calcium 8.8 mg/dL (8.4-10.2); Magnesium 1.8 mg/dL (1.6-2.3); Potassium 4.1 mmol/L (3.5-5.1)
[2022-02-16] MEDS: HEPARIN SODIUM,PORCINE/PF 5,000 UNIT/0.5 ML SYRINGE SQ SCH (08:47)
[2022-02-16] MEDS: MAGNESIUM OXIDE 400 MG TAB PO SCH (08:48)
[2022-02-16] MEDS: LORATADINE 10 MG TAB PO SCH (08:49)
[2022-02-16] MEDS: ASCORBIC ACID 500 MG TAB PO SCH (08:49)
[2022-02-16] MEDS: METOPROLOL TARTRATE 50 MG TAB PO SCH (08:49)
[2022-02-16] MEDS: VERAPAMIL SR 120 MG TABLET.ER PO SCH (08:49)
[2022-02-16] MEDS: MAGNESIUM SULFATE-D5W PMX 1 GM in DEXTROSE/WATER 1 100ML.BAG IVPB SCH ×2 (08:50→10:15)
--- NOTE | 2022-02-16 08:54 | P.PN ---
Subjective Patient is seen in follow-up for acute kidney injury. Renal function back to baseline. Off IV fluids. Oral intake good. Good urine output. No vomiting or diarrhea. No active complaints. Hemodynamically stable. Vital signs are stable. General: Awake. No acute distress. HEENT: Head exam is unremarkable. LUNGS: Breath sounds decreased. HEART: Rate and Rhythm are regular. ABDOMEN: Soft, no distention. EXTREMITITES: No edema. Objective - Vital Signs Vital signs: Vital Signs Temp 98.2 F 02/16/22 04:00 Pulse 97 02/16/22 04:00 Resp 18 02/16/22 04:00 BP 108/70 02/16/22 04:00 Pulse Ox 97 02/16/22 04:00 FiO2 Intake & Output 02/15/22 02/16/22 02/16/22 18:59 06:59 18:59 Intake Total 1260 Output Total 1700 Balance -440 Intake: Intake, IV Titration 300 Amount Magnesium Sulfate-D5w Pmx 200 1 gm In Dextrose/Water 1 100ml.bag @ 100 mls/hr IVPB Q1H [facility] Rx#: [id number] Sodium Ferric Gluconat- 100 Sucrose 125 mg In Sodium Chloride 0.9% 100 ml @ 100 mls/hr IVPB DAILY [facility] Rx#:[id number] Oral 960 Output: Urine 1400 Urine/Stool Mix 300 Other: Voiding Method Toilet Toilet # Voids 1 - Labs CBC & Chem 7: 02/15/22 07:41 02/16/22 07:48 Labs: Abnormal Lab Results - Last 24 Hours (Table) 02/15/22 02/16/22 Range/Units 07:12 07:48 Sodium 135 L (137-145) mmol/L Carbon Dioxide 21 L (22-30) mmol/L Vitamin B12 1345.0 H (200.0-944.0) pg/mL Microbiology - Last 24 Hours (Table) 02/12/22 08:05 Urine Culture - Final Urine,Voided Escherichia coli Corynebacterium urealyticum(D2 Assessment and Plan Plan: Assessment: 1. Acute kidney injury mostly prerenal secondary to hypotension and hypovolemia improving with IV hydration. Creatinine 0.96 today. Baseline creatinine near 1. UA benign. 2. NSTEMI. Cardiology following. 3. UTI on antibiotics. Urine culture positive for E. coli and Corynebacterium. 4. Hypomagnesemia from poor intake. Better. On oral magnesium oxide. 5. Anemia. Iron deficiency noted. Plan: Maintain IV iron. Continue to monitor renal function and urine output. Ejection fraction preserved. Received IV contrast for CTA of the head and neck on 02/14/2022 which was negative. Will need to monitor for contrast induced injury. Check BMP and magnesium level checked 2-3 days postdischarge. Follow up outpatient in 1 week.
[2022-02-16] MEDS: ZINC SULFATE 220 MG CAP PO SCH (08:56)
--- NOTE | 2022-02-16 11:11 | MR ---
EXAMINATION TYPE: MR brain wo/w con DATE OF EXAM: 02/16/2022 COMPARISON: MRI brain January 19, 2018. CT brain 2 days ago. HISTORY: MS exacerbation left facial droop TECHNIQUE: Multiplanar, multisequence images of the brain and brainstem is performed without and with IV contras t, utilizing 8 mL intravenous Gadavist gadolinium contrast is administered intravenously. Demyelinat ing disease protocol with additional Sagittal Flair sequence performed. FINDINGS: T2 Lesions Present : Yes Approximate Number of Lesions: Approximately 15 Locations Identified : Scattered Size of Reference Lesion(s): 1. 6 x 6 x 5 mm right frontal lesion axial image 16 and sagittal image 217 larger in size from prior with new and larger adjacent lesions Enhancing Lesion(s) Present: No T1 Hypointense Lesion(s) Present: Yes Change from Prior: Increase in number Diffusion weighted images demonstrate no evidence of a recent infarct or other diffusion abnormality. There is no worrisome extra-axial fluid collection. The ventricular system and cisternal spaces ar e normal in size and appearance. The brain volume is age appropriate. Midline structures demonstrate normal morphology. The craniocervical junction appears within normal limits. Post contrast images demonstrate no abnormal enhancement. The dural venous sinuses appear pa tent. The visualized sinuses are clear and the globes are intact. Some artifact anterior to the glob es is felt present on current study. IMPRESSION: 1. No MRI evidence for recent infarct. 2. Mild nonspecific white matter changes likely on the basis of known multiple sclerosis. Interval pr ogression in findings noted from 2018 MRI. No enhancing or active lesions clearly seen
[2022-02-16] MEDS: METOCLOPRAMIDE 5 MG/ML 2 ML VIAL IVP PRN (11:39)
--- NOTE | 2022-02-16 12:05 | P.PN ---
Subjective Progress Note Date: 02/15/22 Principal diagnosis: Urinary tract infection and right ankle wound Patient is a 56-year-old female with multiple comorbidities presenting to the hospital with not feeling well she was noticed to have a low-grade fever and there is concern for possible UTI patient also have a wound to the right dorsal ankle for an infected ankle for which the patient has completed her antibiotic therapy. On today's evaluation that is 02/15/2022, The patient denies having any fever or any chills, the patient is breathing comfortably room air patient denies chest pain shortness of the cough but denies abdominal pain no nausea vomiting no diarrhea no urinary symptoms Objective - Vital Signs Vital signs: Vital Signs Temp 99 F 02/15/22 09:20 Pulse 85 02/15/22 09:20 Resp 16 02/15/22 09:20 BP 144/91 02/15/22 09:20 Pulse Ox 99 02/15/22 09:20 FiO2 Intake & Output 02/14/22 02/15/22 02/15/22 18:59 06:59 18:59 Intake Total 1350 Output Total 1325 Balance 25 Intake: Intake, IV Titration 900 Amount Sodium Chloride 0.9% 1, 900 000 ml @ 75 mls/hr IV . [id number] [facility] Rx#:[id number] Oral 450 Output: Urine 1325 Other: Voiding Method Toilet Toilet Toilet # Voids 2 - Exam GENERAL DESCRIPTION: Middle-age female lying in bed in no distress RESPIRATORY SYSTEM: Unlabored breathing , decreased breath sounds at bases HEART: S1 S2 regular rate and rhythm , ABDOMEN: Soft , no tenderness EXTREMITIES: Right ankle wound base looks clean no slough tissue, No surrounding redness - Labs CBC & Chem 7: 02/15/22 07:41 02/16/22 07:48 Labs: Abnormal Lab Results - Last 24 Hours (Table) 02/14/22 02/14/22 02/14/22 Range/Units 07:03 17:36 17:36 RBC 2.59 L (3.80-5.40) m/uL Hgb 8.5 L (11.4-16.0) gm/dL Hct 25.9 L (34.0-46.0) % Chloride (98-107) mmol/L Carbon Dioxide (22-30) mmol/L Creatinine 1.07 H (0.52-1.04) mg/dL Glucose 120 H (74-99) mg/dL Iron 42 L (50-170) ug/dL Ferritin 756.0 H (10.0-291.0) ng/mL Total Bilirubin 0.1 L (0.2-1.3) mg/dL Total Protein 6.0 L (6.3-8.2) g/dL Albumin 3.4 L (3.5-5.0) g/dL Urine Glucose (UA) (Negative) Urine Ketones (Negative) Ur Leukocyte Esterase (Negative) Urine Mucus (None) /hpf 02/15/22 02/15/22 02/15/22 Range/Units 03:36 07:41 07:41 RBC 2.49 L (3.80-5.40) m/uL Hgb 7.9 L (11.4-16.0) gm/dL Hct 24.4 L (34.0-46.0) % Chloride 109 H (98-107) mmol/L Carbon Dioxide 21 L (22-30) mmol/L Creatinine (0.52-1.04) mg/dL Glucose (74-99) mg/dL Iron (50-170) ug/dL Ferritin (10.0-291.0) ng/mL Total Bilirubin (0.2-1.3) mg/dL Total Protein (6.3-8.2) g/dL Albumin (3.5-5.0) g/dL Urine Glucose (UA) Trace H (Negative) Urine Ketones 1+ H (Negative) Ur Leukocyte Esterase Trace H (Negative) Urine Mucus Rare H (None) /hpf Microbiology - Last 24 Hours (Table) 02/12/22 08:05 Urine Culture - Final Urine,Voided Escherichia coli Corynebacterium urealyticum(D2 Assessment and Plan (1) UTI (urinary tract infection) Current Visit: No Status: Acute Code(s): N39.0 - URINARY TRACT INFECTION, SITE NOT SPECIFIED SNOMED Code(s): 01147168 Plan: 1patient presented hospital with not feeling well weakness which is likely multifactorial for possible prerenal/dehydration as we did have elevated BUN/creatinine patient did have mild elevated white count which could be hemoconcentration plus minus a component of UTI likely from enteric gram- negative patient right ankle wound is healing with no evidence of any cellulitis. 2patient to continue local wound care to the right ankle wound with Hydrofera Blue dressing change every 48 hour. 3-The patient urine culture finalized with ESBL E. coli fluid the patient has been started on Invanz however the patient repeat UA is negative, Invanz will be discontinued on discharge no need for IV antibiotic on discharge Time with Patient: Less than 30
[2022-02-16] MEDS: SODIUM FERRIC GLUCONAT-SUCROSE 125 MG in SODIUM CHLORIDE 0.9% 100 ML IVPB SCH (12:35)
--- NOTE | 2022-02-16 12:38 | P.PN ---
Subjective Progress Note Date: 02/16/22 The patient is seen at bedside and feels about the same. Denies any worsening of her neurological status. Objective - Vital Signs Vital signs: Vital Signs Temp 97.1 F L 02/16/22 12:00 Pulse 83 02/16/22 12:00 Resp 16 02/16/22 12:00 BP 114/71 02/16/22 12:00 Pulse Ox 97 02/16/22 12:00 FiO2 Intake & Output 02/15/22 02/16/22 02/16/22 18:59 06:59 18:59 Intake Total 1260 Output Total 1700 640 Balance -440 -640 Intake: Intake, IV Titration 300 Amount Magnesium Sulfate-D5w Pmx 200 1 gm In Dextrose/Water 1 100ml.bag @ 100 mls/hr IVPB Q1H [facility] Rx#: [id number] Sodium Ferric Gluconat- 100 Sucrose 125 mg In Sodium Chloride 0.9% 100 ml @ 100 mls/hr IVPB DAILY [facility] Rx#:[id number] Oral 960 Output: Urine 1400 640 Urine/Stool Mix 300 Other: Voiding Method Toilet Toilet Toilet # Voids 1 - Exam GENERAL: The patient is lying in bed and is not in acute distress. HENT: Supple neck. Has left periorbital edema and left facial edema (cheek region predominately), warm to touch and erythematous. NEUROLOGICAL: Higher mental function: The patient is awake, alert, oriented to self, place and time. Patient is following commands. No aphasia and no neglect. Cranial nerves: The pupils are round, equal and reactive to light and accommodation. Has left periorbital edema and left cheek edema and warm to touch with reddish erythema. Visual rucker are full to confrontation throughout. Extraocular movement is intact no nystagmus is noted. Facial sensation is normal to touch throughout. The facial strength is normal throughout. Hearing is normal bilaterally to hand rub. Tongue is midline and moved [id number] without any difficulty. No dysarthria is noted. Shoulder shrug is normal bilaterally. Motor: The strength is 5 over 5 throughout except the right ankle was limited because of her cellulitis. Has wrappage of the right foot/ankle (has cellulitis). Normal tone and bulk. Cerebellum: Normal finger to nose bilaterally. Sensation: Sensation is normal to touch throughout. Reflexes (right/left): 3+ triceps bilaterally, left biceps 3+. Patellar 3+. Otherwise 2+ throughout. Plantars are mute bilaterally. SOME OF THE WORK-UP DURING THIS HOSPITAL VISIT: CT of the head which is reported as negative unenhanced head CT scan. I personally reviewed the CT of the head and I agree with the report. CT angiography of the head and neck which is reported as negative. MR the brain with and without is reported as no MRI evidence for recent infarct. Mild nonspecific white matter changes likely on the basis of known multiple screws is. Interval progression in the finding noted from 2018 MRI. No enhancing or active lesions clearly seen. - Labs CBC & Chem 7: 02/15/22 07:41 02/16/22 07:48 Labs: Abnormal Lab Results - Last 24 Hours (Table) 02/15/22 02/16/22 Range/Units 07:12 07:48 Sodium 135 L (137-145) mmol/L Carbon Dioxide 21 L (22-30) mmol/L Vitamin B12 1345.0 H (200.0-944.0) pg/mL Assessment and Plan Assessment: Edema, erythema and warm to touch over the left side: Appears cellulitis. Does not appear like MS exacerbation or Complicated migraine (currently does not have headache). Negative for stroke or new enhancing lesion for MS exacerbation. Acute UTI Acute Kidney disease---resolved Chronic right foot won't with the right leg swelling and erythema suspicious for cellulitis Hypothyroidism History of coronary artery disease Shortness syndrome History of vertigo History of Migraine who continues to have headache History of Multiple Sclerosis Fibromyalgia Plan: Currently the patient is on verapamil 120 mg daily for headache, she is also on Fioricet when necessary, Reglan when necessary ID is on board for her possible cellulitis as well as her urinary tract infection. Every 4 hours neuro checks We'll defer the rest of the medical management to primary team Patient to follow-up with her neurologist (Dr. Kolb) within 1-2 weeks. The plan is discussed with patient and primary team. No additional work-up. Neurology will sign off. Please reconsult if needed. Charles Brown M.D. Neuro-Hospitalist Time with Patient: Less than 30
--- NOTE | 2022-02-16 13:22 | P.PN ---
Subjective Progress Note Date: 02/16/22 Principal diagnosis: Urinary tract infection and right ankle wound Patient is a 56-year-old female with multiple comorbidities presenting to the hospital with not feeling well she was noticed to have a low-grade fever and there is concern for possible UTI patient also have a wound to the right dorsal ankle for an infected ankle for which the patient has completed her antibiotic therapy. On today's evaluation that is 02/16/2022, The patient remains to be afebrile, th e patient is breathing comfortably room air, the patient denies having any chest pain shortness of breath or cough, the patient denies abdominal pain no nausea vomiting and no urinary symptoms overall feeling better no pain to the right ankle wound area Objective - Vital Signs Vital signs: Vital Signs Temp 98.2 F 02/16/22 04:00 Pulse 97 02/16/22 04:00 Resp 18 02/16/22 04:00 BP 108/70 02/16/22 04:00 Pulse Ox 97 02/16/22 04:00 FiO2 Intake & Output 02/15/22 02/16/22 02/16/22 18:59 06:59 18:59 Intake Total 1260 Output Total 1700 Balance -440 Intake: Intake, IV Titration 300 Amount Magnesium Sulfate-D5w Pmx 200 1 gm In Dextrose/Water 1 100ml.bag @ 100 mls/hr IVPB Q1H [facility] Rx#: [id number] Sodium Ferric Gluconat- 100 Sucrose 125 mg In Sodium Chloride 0.9% 100 ml @ 100 mls/hr IVPB DAILY [facility] Rx#:[id number] Oral 960 Output: Urine 1400 Urine/Stool Mix 300 Other: Voiding Method Toilet Toilet # Voids 1 - Exam GENERAL DESCRIPTION: Middle-age female lying in bed in no distress RESPIRATORY SYSTEM: Unlabored breathing , decreased breath sounds at bases HEART: S1 S2 regular rate and rhythm , ABDOMEN: Soft , no tenderness EXTREMITIES: Right ankle wound base looks clean no slough tissue, No surrounding redness - Labs CBC & Chem 7: 02/15/22 07:41 02/16/22 07:48 Labs: Abnormal Lab Results - Last 24 Hours (Table) 02/15/22 02/16/22 Range/Units 07:12 07:48 Sodium 135 L (137-145) mmol/L Carbon Dioxide 21 L (22-30) mmol/L Vitamin B12 1345.0 H (200.0-944.0) pg/mL Microbiology - Last 24 Hours (Table) 02/12/22 08:05 Urine Culture - Final Urine,Voided Escherichia coli Corynebacterium urealyticum(D2 Assessment and Plan (1) UTI (urinary tract infection) Current Visit: No Status: Acute Code(s): N39.0 - URINARY TRACT INFECTION, SITE NOT SPECIFIED SNOMED Code(s): 20480731 Plan: 1patient presented hospital with not feeling well weakness which is likely multifactorial for possible prerenal/dehydration as we did have elevated BUN/creatinine patient did have mild elevated white count which could be hemoconcentration plus minus a component of UTI likely from enteric gram- negative patient right ankle wound is healing with no evidence of any cellulitis. 2patient to continue local wound care to the right ankle wound with Hydrofera Blue dressing change every 48 hour. 3-The patient urine culture finalized with ESBL E. coli , However the patient repeat UA is negative patient will receive her third dose of IV Invanz today afterwards there will be no need for any antibiotic on discharge and close outpatient follow-up Time with Patient: Less than 30
[2022-02-16] MEDS: ERTAPENEM 1 GM in SODIUM CHLORIDE 0.9% 50 ML IVPB SCH (13:50)
[2022-02-16 16:06] VITALS: BP 146/78; PULSE 96; RESP 15; TEMP 96.8
--- NOTE | 2022-02-16 16:46 | P.DS ---
Providers Date of admission: 02/11/22 20:33 Attending physician: Billy Saunders Consults: 02/12/22 00:34 Consult Physician Urgent Consulting Provider: Kathryn Jackson Consult Reason/Comments: REINIER Do you want consulting provider notified?: Yes 02/12/22 07:38 Consult Physician Urgent Consulting Provider: Jorge Womack Consult Reason/Comments: Elevated troponin Do you want consulting provider notified?: Yes 02/12/22 08:53 Consult Physician Urgent Consulting Provider: Tye Mendez Consult Reason/Comments: uti, possible cellulitis Do you want consulting provider notified?: Yes 02/14/22 17:08 Consult Physician Urgent Consulting Provider: Charles Brown Consult Reason/Comments: left sided facial droop Do you want consulting provider notified?: Yes Primary care physician: Sujit Pak [facility] Course: Diagnosis Acute ESBL UTI Severe migrainous headache with suspected facial droop Left periorbital edema ongoing work up Acute kidney injury, improving Elevated troponin , acute coronary syndrome has been ruled out. Anemia, iron deficient, check B12 Folate Constipation Chronic right foot wound, with right leg swelling and erythema suspicious for cellulitis Hypertension, currently hypotensive upon admission Hypothyroidism History of coronary artery disease Sjogren syndrome History of fibromyalgia History of degenerative disc disease History of multiple sclerosis Vertigo history of Full Code Discharge Disposition Patient stable for discharge today after completion of third dose of IV Invanz. She is also received 2 days of IV Ferrlecit and will discharge on oral ferrous sulfate and follow-up with nephrology in one week outpatient. Continue with bowel regimen. Discontinue seizure medication. She will follow with Dr. Kolb in 1-2 weeks outpatient as recommended by neurology. Also recommended to follow up with Dr Mendez, Dr Christianson, and primary care Dr Pak which appointments have been made. Hospital Course This is a 56 year old female with medical history significant for coronary artery disease, fibromyalgia, multiple sclerosis, Sjogren syndrome, migraines, chronic kidney disease, vertigo. Patient was found to be tachycardic by visiting nurse with difficulty urination and was directed to come to the emergency room. She presents with urinary discomfort found to have ESBL UTI and acute kidney injury. She received 3 days of IV Invanz was followed by in fectious disease. Patient was also recently treated for cellulitis post debridement in her ankle which she has completed antibiotic therapy for. She will not require any antibiotics at discharge and will follow-up with Dr. Mendez outpatient. Patient does also report frontal headache with associated dizziness and she received 1 dose of oral Fioricet. Later that day she was a code stroke on February 14 with reports of left-sided facial droop which resolved however patient had unilateral left periorbital edema. She underwent MRI which is negative for stroke or new enhancing lesion for MS exacerbation. No further workup per neurology and patient can follow-up with her neurologist outpatient 1-2 weeks. Fioricet as discontinued after first dose. Diagnostics completed this admission include Venous Doppler negative for DVT in the right leg, negative for DVT in thr left leg Pulmonary perfusion scan showing low probability for pulmonary embolism Echocardiogram showing EF 55-60% with trace tricuspid regurgitation, trace mitral regurgitation KUB x-ray negative Brain CT negative Brain CTA negative 02/16/2022 Patient evaluated today and reports no acute events overnight. Left periorbital edema is improving no erythema. No white count, 5.3 today, hgb 7.9, sodium 135, potassium 4.1, BUN 9, creatinine 0.96, magnesium 1.8. She received IV magnesium today. She received IV ferrlecit. Was evaluated by nephrology and will follow up in the office. Today she denies Chest pain, denies shortness of breath, denies nausea, vomiting, diarrhea. Denies dysuria, bowels are moving. Lungs are clear, S1 S2 auscultated. Abdomen soft and nontender, focal neurological exam is negative. She is afebrile, heart rate 96, blood pressure 146/78, 100% room air. Please see medication reconciliation for list of current medication. Thank you for allowing us to participate in the care of this patient. Total time taken in discharge planning greater than 35 minutes The impression and plan of care has been dictated by Hoda Neely Nurse Practitioner as directed. Dr. Mann MD I have performed a history and physical examination and medical decision making of this patient, discussed the same with the dictator, and agree with the dictators assessment and plan as written, documented as a scribe. Based on total visit time, I have performed more than 50% of this visit. Patient Condition at Discharge: Stable Plan - Discharge Summary Discharge Rx Participant: No New Discharge Prescriptions: New Docusate [Colace] 100 mg PO BID #60 capsule Famotidine [Pepcid] 20 mg PO BID #60 tablet Ferrous Sulfate [Feosol] 325 mg PO BID #60 tab Continue Cyclobenzaprine [Flexeril] 10 mg PO HS rOPINIRole HCL [Requip] 10 mg PO HS Dextroamphetamine Sulfate [Dexedrine] 15 mg PO BID Ascorbic Acid [Vitamin C] 500 mg PO BID Cetirizine HCl 10 mg PO DAILY Acetaminophen-Codeine 300-30mg [Tylenol w/codeine #3] 1 tab PO Q6H PRN PRN Reason: Pain Zolpidem [Ambien] 10 mg PO HS PRN PRN Reason: SLEEP Verapamil HCl [Verapamil ER] 120 mg PO DAILY ondansetron HCL [Zofran] 8 mg PO TID PRN PRN Reason: Nausea Diclofenac Sodium Gel [Voltaren Gel] 2 gm TOPICAL BID PRN PRN Reason: Pain Magnesium Oxide [Mag-Ox] 400 mg PO BID traZODone HCL [Desyrel] 100 mg PO HS Zinc 50 mg PO BID Ergocalciferol (Vitamin D2) [Drisdol (50,000 Iu)] 1,250 mcg PO Q30D Elderberry Fruit and Flower [Black Elderberry 575 mg Cap] 2 cap PO W/SUPPER Metoprolol Tartrate [Lopressor] 50 mg PO BID Discontinued Pilocarpine HCl [Salagen] 5 mg PO TID Azilsartan Med/Chlorthalidone [Edarbyclor 40-25 mg Tablet] 1 tab PO DAILY Pantoprazole [Protonix] 40 mg PO BID Discharge Medication List Cyclobenzaprine [Flexeril] 10 mg PO HS 09/27/17 [History] rOPINIRole HCL [Requip] 10 mg PO HS 09/27/17 [History] Dextroamphetamine Sulfate [Dexedrine] 15 mg PO BID 12/20/18 [History] Ascorbic Acid [Vitamin C] 500 mg PO BID 11/25/19 [History] Cetirizine HCl 10 mg PO DAILY 03/23/21 [History] Diclofenac Sodium Gel [Voltaren Gel] 2 gm TOPICAL BID PRN 03/23/21 [History] Verapamil HCl [Verapamil ER] 120 mg PO DAILY 03/23/21 [History] Zolpidem [Ambien] 10 mg PO HS PRN 03/23/21 [History] ondansetron HCL [Zofran] 8 mg PO TID PRN 03/23/21 [History] Elderberry Fruit and Flower [Black Elderberry 575 mg Cap] 2 cap PO W/SUPPER 11/17/21 [History] Ergocalciferol (Vitamin D2) [Drisdol (50,000 Iu)] 1,250 mcg PO Q30D 11/17/21 [History] Magnesium Oxide [Mag-Ox] 400 mg PO BID 11/17/21 [History] Metoprolol Tartrate [Lopressor] 50 mg PO BID 11/17/21 [History] Zinc 50 mg PO BID 11/17/21 [History] traZODone HCL [Desyrel] 100 mg PO HS 11/17/21 [History] Acetaminophen-Codeine 300-30mg [Tylenol w/codeine #3] 1 tab PO Q6H PRN 02/11/22 [History] Docusate [Colace] 100 mg PO BID #60 capsule 02/16/22 [Rx] Famotidine [Pepcid] 20 mg PO BID #60 tablet 02/16/22 [Rx] Ferrous Sulfate [Feosol] 325 mg PO BID #60 tab 02/16/22 [Rx] Follow up Appointment(s)/Referral(s): Lázaro Kolb MD [Medical Doctor] - 1 Week (office staff will call pt to make follow up appointment) Sujit Pak DO [Primary Care Provider] - 03/01/22 2:00 pm Charles Christianson DO [STAFF PHYSICIAN] - 03/15/22 11:40 am Tye Mendez MD [STAFF PHYSICIAN] - 02/28/22 2:30 pm Ambulatory/Diagnostic Orders: Basic Metabolic Panel [LAB.AMB] Time Frame: 3 Days, Location: None Selected Magnesium [LAB.AMB] Time Frame: 3 Days, Location: None Selected Patient Instructions/Handouts: Acute Kidney Injury (DC) Activity/Diet/Wound Care/Special Instructions: No antibiotics on disharge Discharge Disposition: HOME WITH HOME HEALTH SERVICES
== END 2022-02-16 17:04 | disposition home health service (06) | DRG 689 ==
LOC: EC 18:37 → 3SCARD 20:33
PROVIDERS: ADMIT Hospitalist; ATTEND Hospitalist
DX: N39.0 Urinary tract infection, site not specified (principal); A41.9 Sepsis, unspecified organism; I21.A1 Myocardial infarction type 2; N17.0 Acute kidney failure with tubular necrosis; L03.115 Cellulitis of right lower limb; Z16.12 Extended spectrum beta lactamase (ESBL) resistance; M35.00 Sjogren syndrome, unspecified; M79.7 Fibromyalgia; I12.9 Hypertensive chronic kidney disease with stage 1 through stage 4 chronic kidney disease, or unspecified chronic kidney disease; E11.22 Type 2 diabetes mellitus with diabetic chronic kidney disease; E83.42 Hypomagnesemia; E86.0 Dehydration; G35 Multiple sclerosis; I25.10 Atherosclerotic heart disease of native coronary artery without angina pectoris; B96.20 Unspecified Escherichia coli [E. coli] as the cause of diseases classified elsewhere; H05.222 Edema of left orbit; I08.1 Rheumatic disorders of both mitral and tricuspid valves; J47.9 Bronchiectasis, uncomplicated; B96.89 Other specified bacterial agents as the cause of diseases classified elsewhere; E86.1 Hypovolemia; E03.9 Hypothyroidism, unspecified; Z79.890 Hormone replacement therapy; D50.9 Iron deficiency anemia, unspecified; G43.909 Migraine, unspecified, not intractable, without status migrainosus; I45.10 Unspecified right bundle-branch block; K59.00 Constipation, unspecified; N18.9 Chronic kidney disease, unspecified; R29.810 Facial weakness; Z79.899 Other long term (current) drug therapy; Z82.49 Family history of ischemic heart disease and other diseases of the circulatory system; Z82.5 Family history of asthma and other chronic lower respiratory diseases; Z83.3 Family history of diabetes mellitus; Z90.710 Acquired absence of both cervix and uterus; Z88.6 Allergy status to analgesic agent
CPT/HCPCS: 36415; 51798; 70450; 70496; 70498; 70553; 71046; 74018; 78580; 80048; 80053; 81001; 82607; 82728; 82746; 83036; 83540; 83550; 83735; 84439; 84443; 84484; 85025; 85379; 85610; 85730; 87077; 87086; 87186; 93005; 93306; 96361; 96365; 96372; 96375; 99285

== ENCOUNTER → 2022-11-25 | Outpatient (CLI) | payer MEDICARE ==
[2022-11-25 20:50] LABS: African American GFR (CKD) 115.7 (60.0-200.0); Anion Gap 12.6 mmol/L (10.00-18.00); BUN/Creat Ratio 15.13 Ratio (12.00-20.00); Blood Urea Nitrogen 9.9 mg/dL (9.0-27.0); Calcium 9.8 mg/dL (8.7-10.3); Carbon Dioxide 27.5 mmol/L (20.0-27.5); Non-African American GFR(CKD) 99.8 (60.0-200.0); Potassium 4.4 mmol/L (3.5-5.5)
== END | disposition home or self-care (01) ==
LOC: LABWHC1 13:46
PROVIDERS: ATTEND Internal Medicine
DX: R22.41 Localized swelling, mass and lump, right lower limb (principal)
CPT/HCPCS: 36415; 80048; 85379

== ENCOUNTER → 2023-02-28 | Outpatient (CLI) | payer MEDICARE ==
--- NOTE | 2023-02-28 13:07 | US ---
EXAMINATION TYPE: US kidneys/renal and bladder DATE OF EXAM: 02/28/2023 COMPARISON: Renal artery ultrasound 09/04/2022 CLINICAL INDICATION: Female, 57 years old with history of N17.9 ACUTE KIDNEY FAILURE, UNSPECIFIED; AK I EXAM MEASUREMENTS: Right Kidney: 10.1 x 4.7 x 4.5 cm Left Kidney: 10.3 x 4.4 x 3.8 cm Right Kidney: dense echogenic focus mid = 0.8cm Left Kidney: no evidence of hydronephrosis Bladder: appears wnl Bilateral Jets seen: no There is no evidence for hydronephrosis at this point in time. Nonobstructing right renal calculus.. No masses are identified. Cortical medullary differentiation is maintained bilaterally. The urinary bladder is anechoic. Bilateral ureteral jets are not seen. IMPRESSION: 1. No hydronephrosis. 2. Nonobstructive right renal calculus.
== END | disposition home or self-care (01) ==
LOC: RADUSWWP 12:24
PROVIDERS: ATTEND Internal Medicine Nephrology
DX: N20.0 Calculus of kidney (principal); N17.9 Acute kidney failure, unspecified
CPT/HCPCS: 76770

== ENCOUNTER → 2023-09-14 | Outpatient (CLI) | payer MEDICARE, OTHER | END | disposition home or self-care (01) | LOC: LABWHC1 10:15 | PROVIDERS: ATTEND Nurse Practitioner Family | DX: I10 Essential (primary) hypertension (principal) | CPT/HCPCS: 36415; 82088; 83835; 84244 ==

== ENCOUNTER → 2023-10-17 | Outpatient (CLI) | payer MEDICARE ==
--- NOTE | 2023-10-18 17:53 | BD ---
EXAMINATION TYPE: Axial Bone Density DATE OF EXAM: 10/17/2023 CLINICAL HISTORY: 57 years old Female. ICD-10 CODE: M81.0 AGE-RELATED OSTEOPOROSIS Height: 60 Weight: 122.2 FRAX RISK QUESTIONS: Alcohol (3 or more units per day): no Family History (Parent hip fracture): no Glucocorticoids (More than 3mos): no (Ex: prednisone, prednisolone, methylprednisolone, dexamethasone, and hydrocortisone). History of Fracture in Adulthood: yes Secondary Osteoporosis: 1. Type 1 Diabetes: no 2. Hyperthyroidism: no 3. Menopause before 45: yes 4. Malnutrition: no 5. Chronic liver disease: no Rheumatoid Arthritis: no Current Tobacco Use: no RISK FACTORS HISTORY OF: Surgery to Spine/Hip(right/left)/Wrist (right/left): no EXAM MEASUREMENTS: Bone mineral densitometry was performed using the [employer] System. Bone mineral density as measured about the Lumbar spine is: ----- L1-L4(G/cm2): 1.053 T Score Values are as follows: ----- L1: -1.4 ----- L2: -1.3 ----- L3: -1.3 ----- L4: -0.2 ----- L1-L4: -1.1 Z Score Values are as follows: ----- L1: -0.2 ----- L2: -0.1 ----- L3: -0.1 ----- L4: 0.9 ----- L1-L4: 0.1 Bone mineral density : baseline Bone mineral density about the R hip (g/cm2): 0.960 Bone mineral density about the L hip (g/cm2): 0.716 T Score values are as follows: -----R Neck: -2.3 -----L Neck: -2.3 -----R Total: -2.5 -----L Total: -2.3 Z Score values are as follows: -----R Neck: -1.0 -----L Neck: -1.0 -----R Total: -1.6 -----L Total: -1.4 Bone mineral density : baseline FRAX%s: The graph provided illustrates a 15.7% chance for a major osteoporotic fx and a 2.8% chance f or the hips probability for fx in 10 years time. IMPRESSION: Osteopenia (T Score between -2.5 and -1). There is slightly increased risk of fracture and the patient may be considered for treatment. Re-Screen 2-5 years. NOTE: T-SCORE=SD OF THE YOUNG ADULT MEAN.
== END | disposition home or self-care (01) ==
LOC: RADBDWWP 16:02
PROVIDERS: ATTEND Family Medicine
DX: M85.89 Other specified disorders of bone density and structure, multiple sites (principal); Z78.0 Asymptomatic menopausal state; M81.0 Age-related osteoporosis without current pathological fracture
CPT/HCPCS: 77080

== ENCOUNTER 2024-11-25 22:53 | Emergency (ER) | payer MEDICARE ==
[2024-11-25 23:10] VITALS: BP 182/124; TEMP 98.3
--- NOTE | 2024-11-25 23:22 | ED ---
Upper Extremity HPI - General Chief Complaint: Extremity Injury, Upper Stated Complaint: Hand injury Time Seen by Provider: 11/25/24 23:19 Source: patient, RN notes reviewed Mode of arrival: ambulatory Limitations: no limitations - History of Present Illness Initial Comments: 59-year-old female presented the ER for evaluation of a fall. Patient states she was walking her dog this evening when the dog saw a rabbit and pulled on the leash. This caused patient to fall forward. She states her arms were outstretched and she attempted to catch herself with her hands. She is noting 10 out of 10 pain to her left fifth metacarpal and digit. She also notes deformity to right thumb. She denies any paresthesias to hand or fingers bilaterally. Denies any elbow, shoulder or neck pain. Patient states she took an Motrin 800 which she is prescribed for chronic pain a couple of hours ago. She denies any head injury, loss of consciousness or blood thinner use. Patient denies any lower extremity injuries. No other injuries or complaints. - Related Data Home Medications Medication Instructions Recorded Confirmed Cyclobenzaprine [Flexeril] 10 mg PO HS 09/27/17 08/12/24 rOPINIRole HCL [Requip] 10 mg PO HS 09/27/17 08/12/24 Dextroamphetamine Sulfate 15 mg PO BID 12/20/18 08/12/24 [Dexedrine] Cetirizine HCl 10 mg PO HS 03/23/21 08/12/24 Diclofenac Sodium Gel [Voltaren 1% 2 gm TOPICAL BID PRN 03/23/21 08/12/24 Gel] Zolpidem [Ambien] 10 mg PO HS PRN 03/23/21 08/12/24 traZODone HCL [Desyrel] 100 mg PO HS 11/17/21 08/12/24 Pantoprazole Sodium [Protonix] 40 mg PO BID@1700,2100 09/02/22 08/12/24 predniSONE 10 mg PO TID PRN 09/02/22 08/12/24 Ascorbic Acid [Vitamin C] 1,000 mg PO DAILY 08/12/24 08/12/24 Cyclobenzaprine [Flexeril] 10 mg PO TID PRN 08/12/24 08/12/24 Melatonin 20 mg PO HS 08/12/24 08/12/24 Prebiotic/Probiotic 1 cap PO DAILY 08/12/24 08/12/24 Previous Rx's Medication Instructions Recorded Ciprofloxacin HCl [Cipro] 500 mg PO Q12HR 10 Days #20 tab 08/19/24 Fluconazole [Diflucan] 200 mg PO DAILY #10 tablet 08/19/24 Magnesium Oxide [Mag-Ox] 400 mg PO DAILY #30 tab 08/19/24 amLODIPine [Norvasc] 5 mg PO DAILY #30 tab 08/19/24 metroNIDAZOLE [Flagyl] 500 mg PO TID #30 tab 08/19/24 Allergies Allergy/AdvReac Type Severity Reaction Status Date / Time Sulfa (Sulfonamide Allergy Swelling Verified 11/25/24 23:10 Antibiotics) aspirin AdvReac Abdominal Verified 11/25/24 23:10 Pain hydralazine AdvReac Rapid Verified 11/25/24 23:10 Heart Rate Review of Systems ROS Statement: Those systems with pertinent positive or pertinent negative responses have been documented in the HPI. ROS Other: All systems not noted in ROS Statement are negative. Past Medical History Past Medical History: Coronary Artery Disease (CAD), Chest Pain / Angina, Fibromyalgia, Musculoskeletal Disorder, Renal Disease Additional Past Medical History / Comment(s): Migraines, Shrgren syndrome, DDD, MS,. Right BBB, CKD, Tarsal tunnel syndrome, vertigo History of Any Multi-Drug Resistant Organisms: ESBL Date of last positivie culture/infection: 03/01/22 ESBL E.coli MDRO Source:: URINE Past Surgical History: Appendectomy, Hysterectomy, Orthopedic Surgery Additional Past Surgical History / Comment(s): right ankle, abdominal laparoscopies, Prexacral Neurectomy, Cryosurgery, Past Anesthesia/Blood Transfusion Reactions: No Reported Reaction Past Psychological History: No Psychological Hx Reported Smoking Status: Never smoker Past Alcohol Use History: None Reported Past Drug Use History: None Reported - Past Family History Father Family Medical History: AICD/Pacemaker, Congestive Heart Failure (CHF), COPD, Diabetes Mellitus, Myocardial Infarction (MT) Additional Family Medical History / Comment(s): Father at age 83 in his sleep. He has history of AICD. Mother Family Medical History: Hypertension Additional Family Medical History / Comment(s): Mother is alive at age 77 with history of hypertension and bronchiectasis. Patient has 2 brothers with no major medical problems. Patient does not have any sisters. Patient is one daughter with no major medical problems. General Exam Limitations: no limitations General appearance: alert, in no apparent distress Head exam: Present: atraumatic, normocephalic, normal inspection Neck exam: Present: normal inspection. Absent: tenderness, meningismus, lymphadenopathy Respiratory exam: Present: normal lung sounds bilaterally. Absent: respiratory distress, wheezes, rales, rhonchi, stridor Cardiovascular Exam: Present: normal rhythm, tachycardia, normal heart sounds Extremities exam: Present: tenderness (Left fifth MCP joint and fifth PIP joint there is surrounding edema and mild contusion overlying. Anterior deformity to right first digit.), normal capillary refill (2+ bilateral radial pulses.) Neurological exam: Present: alert, oriented X3, CN II-XII intact Skin exam: Present: warm, dry, intact, normal color. Absent: rash Course Vital Signs 11/25/24 11/26/24 23:05 00:19 Temperature 98.3 F Pulse Rate 120 H 100 Respiratory 18 19 Rate Blood Pressure 182/124 O2 Sat by Pulse 100 99 Oximetry Procedures - Orthopedic Joint Reduction Joint #1 Consent Obtained: verbal consent Side: right Joint Reduction Location: finger (thumb) Analgesia: none Technique Used: traction/counter-traction, direct manipulation Post-Reduction Neuro Exam: intact Post-Reduction Vascular Exam: intact Splint Applied: Yes (thumb splica fro concern of redislocation) Patient Tolerated Procedure: well - Orthopedic Splinting/Casting Injury #1 Side: right Upper Extremity Injury Location: hand Upper Extremity Immobilizer: thumb spica Injury #2 Side: left Upper Extremity Injury Location: hand Upper Extremity Immobilizer: ulnar gutter Medical Decision Making - Medical Decision Making Was pt. sent in by a medical professional or institution (, PA, TAPE MAKER, urgent care, hospital, or halfway...) When possible be specific @ -No Did you speak to anyone other than the patient for history (EMS, parent, family, police, friend...)? What history was obtained from this source @ -No Did you review nursing and triage notes (agree or disagree)? Why? @ -I reviewed and agree with nursing and triage notes Were old charts reviewed (outside hosp., previous admission, EMS record, old EKG, old radiological studies, urgent care reports/EKG's, halfway records)? Report findings @ -No old charts were reviewed Differential Diagnosis (chest pain, altered mental status, abdominal pain women, abdominal pain men, vaginal bleeding, weakness, fever, dyspnea, syncope, headache, dizziness, GI bleed, back pain, seizure, CVA, palpatations, mental health, musculoskeletal)? @ -Differential Musculoskeletal: Muscular strain, contusion, ligament sprain, fracture, arthritis, septic arthritis, bursitis, cellulitis, muscle spasm, nerve compression, DVT, arterial occlusion, herpes zoster, electrolyte abnormality, tumor.... This is not meant to be in all inclusive list EKG interpreted by me (3pts min.). @ -None done X-rays interpreted by me (1pt min.). @ -Bilateral. X-rays interpreted by me remarkable for fracture of distal left metacarpal. Also dislocation to right first CMC joint and lucency to the base of distal right first phalanx concerning of fracture. CT interpreted by me (1pt min.). @ -None done U/S interpreted by me (1pt. min.). @ -None done What testing was considered but not performed or refused? (CT, X-rays, U/S, labs)? Why? @ -None What meds were considered but not given or refused? Why? @ -None Did you discuss the management of the patient with other professionals (professionals i.e. , PA, TAPE MAKER, lab, RT, psych nurse, certified social workers in health care, equal opportunity assistant, teacher, health officer, field case manager)? Give summary @ -No Was smoking cessation discussed for >3mins.? @ -No Was critical care preformed (if so, how long)? @ -No Were there social determinants of health that impacted care today? How? (Homelessness, low income, unemployed, alcoholism, drug addiction, transportation, low edu. Level, literacy, decrease access to med. care, [place] [facility], rehab)? @ -No Was there de-escalation of care discussed even if they declined (Discuss DNR or withdrawal of care, Hospice)? DNR status @ -No What co-morbidities impacted this encounter? (DM, HTN, Smoking, COPD, CAD, Cancer, CVA, ARF, Chemo, Hep., AIDS, mental health diagnosis, sleep apnea, morbid obesity)? @ -None Was patient admitted / discharged? Hospital course, mention meds given and route, prescriptions, significant lab abnormalities, going to OR and other pertinent info. @ -Discharge. 59-year-old female presented the ER for evaluation of a fall. On arrival patient tachycardic and hypertensive this did resolve. Patient is neurovascularly intact. Imaging completed in the ER remarkable for left 5th distal metacarpal fracture for which patient was placed in an ulnar gutter splint. X-rays also showing a dislocation of the right 1st CMC joint with a lucency through the right first digit distal phalanx concerning for fracture. CMC joint reduction attempted by myself and Dr. Ramesh. There was concern redislocation after reduction on numerous attempts, patient placed in a thumb splica splint given this. Patient provided with p.o. Tylenol for pain control. Patient remained neurovascularly intact after splint placement. Patient instructed to follow-up with orthopedics, referral given. Patient discharged with a Tylenol 3 starter pack for outpatient pain management. I also recommended [id number] ibuprofen return parameters discussed. Patient discharged stable condition. Patient verbally expressed understanding agree with care plan. Case discussed with ED attending, Dr. Ramesh, who also evaluated patient. Undiagnosed new problem with uncertain prognosis? @ -No Drug Therapy requiring intensive monitoring for toxicity (Heparin, Nitro, Insulin, Cardizem)? @ -No Were any procedures done? @ -Yes, splint and joint reduction Diagnosis/symptom? @ -Fifth metacarpal fracture/thumb dislocation Acute, or Chronic, or Acute on Chronic? @ -Acute Uncomplicated (without systemic symptoms) or Complicated (systemic symptoms)? @ -Uncomplicated Side effects of treatment? @ -No Exacerbation, Progression, or Severe Exacerbation? @ -No Poses a threat to life or bodily function? How? (Chest pain, USA, MT, pneumonia, PE, COPD, DKA, ARF, appy, cholecystitis, CVA, Diverticulitis, Homicidal, Suicidal, threat to staff... and all critical care pts) @ -Low - Radiology Data Radiology results: report reviewed, image reviewed Disposition Clinical Impression: Fracture of fifth metacarpal bone, Finger dislocation Disposition: HOME SELF-CARE Condition: Stable Instructions (If sedation given, give patient instructions): Hand Fracture (ED) Additional Instructions: Follow-up with orthopedics. Continue taking [id number] ibuprofen and Tylenol for pain control. Return to the ER for any new or worsening concerns. Keep splint in place until follow-up. Is patient prescribed a controlled substance at d/c from ED?: No Referrals: None,Stated [Primary Care Provider] - 1-2 days Devan Mayfield DO [Doctor of Osteopathic Medicine] - 1-2 days Time of Disposition: 23:57
[2024-11-25] MEDS: ACETAMINOPHEN TAB 325 MG TAB PO STA (23:23)
[2024-11-26] MEDS: ACET/COD 300 MG/30 MG STARTER PACK 6 TAB BTL PO STA (00:17)
[2024-11-26 00:21] VITALS: PULSE 100; RESP 19
--- NOTE | 2024-11-26 01:07 | XR ---
EXAM: XR Bilateral Hands Complete, 3 or More Views CLINICAL HISTORY: ITS.REASON XR Reason: right 1st digit - left 5th digit TECHNIQUE: Frontal, lateral and oblique views of the bilateral hands. COMPARISON: No relevant prior studies available. FINDINGS: Bones/joints: LEFT thumb dislocation at the first CMC. Post reduction views recommended. Resection of the RIGHT trapezium. Correlate with surgical history. No fracture or dislocation. Osseous demineralization. Soft tissues: Unremarkable. No radiopaque foreign body. IMPRESSION: 1. LEFT thumb dislocation at the first CMC. Post reduction views recommended. 2. Resection of the RIGHT trapezium. Correlate with surgical history.
== END 2024-11-26 00:21 | disposition home or self-care (01) ==
LOC: EC 22:53
DX: S62.307A Unspecified fracture of fifth metacarpal bone, left hand, initial encounter for closed fracture (principal); S63.104A Unspecified dislocation of right thumb, initial encounter; Z88.2 Allergy status to sulfonamides; Z88.8 Allergy status to other drugs, medicaments and biological substances; W18.30XA Fall on same level, unspecified, initial encounter; Y93.K1 Activity, walking an animal
CPT/HCPCS: 26641; 27825; 29125; 99283

== ENCOUNTER 2024-12-02 12:39 | Inpatient (IN) | payer MEDICARE ==
--- NOTE | 2024-12-02 14:06 | ED ---
Abdominal Pain HPI - General Source: patient, RN notes reviewed Mode of arrival: ambulatory Limitations: no limitations <Stephen Meraz - Last Filed: 12/02/24 14:05> - General Source: patient, RN notes reviewed, old records reviewed Mode of arrival: ambulatory Limitations: no limitations - History of Present Illness MD Complaint: abdominal pain -: days(s) Location: suprapubic Radiation: suprapubic Migration to: suprapubic Severity: severe Severity scale (1-10): 10 Quality: sharp Consistency: constant Improves With: nothing Worsens With: nothing Associated Symptoms: nausea Treatments Prior to Arrival: other <August Martell - Last Filed: 12/03/24 18:47> - General Chief Complaint: Abdominal Pain Stated Complaint: Abd pain Time Seen by Provider: 12/02/24 12:48 - History of Present Illness Initial Comments: Quick note 59-year-old female presents emergency department complaint of abdominal pain, hernia. Patient states she has had a small lump which is now since the increase in size she was seen in urgent care yesterday had an x-ray showing loop of bowel she states secondary to increasing pain they advised to come the emergency department. She has had multiple prior abdominal surgeries from endometriosis, prior infections. (Stephen Meraz) This is a 59-year-old female to ER for worsening abdominal pain. History of a nterior abdominal wall abscess which was drained here at [facility], patient was told she had a recent hernia which may have had bowel loops in that, presented to the ER for this. History of abdominal surgery including endometriosis, history of prior abdominal infection, patient is mildly diaphoretic with chills, mainly complaining of severe abdominal pain (August Martell) - Related Data Home Medications Medication Instructions Recorded Confirmed rOPINIRole HCL [Requip] 10 mg PO HS 09/27/17 12/02/24 Dextroamphetamine Sulfate 15 mg PO BID 12/20/18 12/02/24 [Dexedrine] Cetirizine HCl 10 mg PO HS 03/23/21 12/02/24 Diclofenac Sodium Gel [Voltaren 1% 2 gm TOPICAL BID PRN 03/23/21 12/02/24 Gel] Zolpidem [Ambien] 10 mg PO HS PRN 03/23/21 12/02/24 traZODone HCL [Desyrel] 100 mg PO HS 11/17/21 12/02/24 Pantoprazole Sodium [Protonix] 40 mg PO BID 09/02/22 12/02/24 predniSONE 20 mg PO DAILY 09/02/22 12/02/24 Ascorbic Acid [Vitamin C] 1,000 mg PO DAILY 08/12/24 12/02/24 Cyclobenzaprine [Flexeril] 10 mg PO TID PRN 08/12/24 12/02/24 Melatonin 20 mg PO HS 08/12/24 12/02/24 Prebiotic/Probiotic 1 cap PO DAILY 08/12/24 12/02/24 Multivitamins, Thera [Multivitamin 1 tab PO DAILY 12/02/24 12/02/24 (formulary)] Potassium Chloride ER [K-Dur 20] 20 meq PO DAILY PRN 12/02/24 12/02/24 ondansetron HCL [Zofran] 8 mg PO BID 12/02/24 12/02/24 Previous Rx's Medication Instructions Recorded amLODIPine [Norvasc] 5 mg PO DAILY #30 tab 08/19/24 Allergies Allergy/AdvReac Type Severity Reaction Status Date / Time Sulfa (Sulfonamide Allergy Swelling Verified 12/03/24 11:11 Antibiotics) aspirin AdvReac Abdominal Verified 12/03/24 11:11 Pain hydralazine AdvReac Rapid Verified 12/03/24 11:11 Heart Rate Review of Systems ROS Other: All systems not noted in ROS Statement are negative. <Stephen Meraz - Last Filed: 12/02/24 14:05> ROS Other: All systems not noted in ROS Statement are negative. <August Martell - Last Filed: 12/03/24 18:47> ROS Statement: Those systems with pertinent positive or pertinent negative responses have been documented in the HPI. Past Medical History Past Medical History: Coronary Artery Disease (CAD), Chest Pain / Angina, Fibromyalgia, Musculoskeletal Disorder, Renal Disease Additional Past Medical History / Comment(s): Migraines, Shrgren syndrome, DDD, MS,. Right BBB, CKD, Tarsal tunnel syndrome, vertigo History of Any Multi-Drug Resistant Organisms: ESBL Date of last positivie culture/infection: 03/01/22 ESBL E.coli MDRO Source:: URINE Past Surgical History: Appendectomy, Hysterectomy, Orthopedic Surgery Additional Past Surgical History / Comment(s): right ankle, abdominal laparoscopies, Prexacral Neurectomy, Cryosurgery, Past Anesthesia/Blood Transfusion Reactions: No Reported Reaction Past Psychological History: No Psychological Hx Reported Smoking Status: Never smoker Past Alcohol Use History: None Reported Past Drug Use History: None Reported - Past Family History Father Family Medical History: AICD/Pacemaker, Congestive Heart Failure (CHF), COPD, Diabetes Mellitus, Myocardial Infarction (PA) Additional Family Medical History / Comment(s): Father at age 83 in his sleep. He has history of AICD. Mother Family Medical History: Hypertension Additional Family Medical History / Comment(s): Mother is alive at age 77 with history of hypertension and bronchiectasis. Patient has 2 brothers with no major medical problems. Patient does not have any sisters. Patient is one d aughter with no major medical problems. <Stephen Meraz M - Last Filed: 12/02/24 14:05> General Exam Limitations: no limitations <Stephen Meraz - Last Filed: 12/02/24 14:05> General appearance: alert, in no apparent distress Head exam: Present: atraumatic, normocephalic, normal inspection Eye exam: Present: normal appearance, PERRL, EOMI. Absent: scleral icterus, conjunctival injection, periorbital swelling ENT exam: Present: normal exam, mucous membranes moist Neck exam: Present: normal inspection. Absent: tenderness, meningismus, lymphadenopathy Respiratory exam: Present: normal lung sounds bilaterally. Absent: respiratory distress, wheezes, rales, rhonchi, stridor Cardiovascular Exam: Present: regular rate, normal rhythm, normal heart sounds. Absent: systolic murmur, diastolic murmur, rubs, gallop, clicks GI/Abdominal exam: Present: soft, normal bowel sounds. Absent: distended, tenderness, guarding, rebound, rigid Extremities exam: Present: normal inspection, full ROM, normal capillary refill. Absent: tenderness, pedal edema, joint swelling, calf tenderness Back exam: Present: normal inspection Neurological exam: Present: alert, oriented X3, CN II-XII intact Psychiatric exam: Present: normal affect, normal mood Skin exam: Present: warm, dry, intact, normal color. Absent: rash <August Martell - Last Filed: 12/03/24 18:47> - General Exam Comments Initial Comments: Visual Physical Exam Vital signs reviewed General: Well-appearing, nontoxic, no acute distress. Head: Normocephalic, atraumatic Eyes: PERRLA, EOMI ENT: Airway patent Chest: Nonlabored breathing Skin: No visual rash, normal skin tone Neuro: Alert and oriented 3 Musculoskeletal: No gross abnormalities (Stephen Meraz) Course <August Martell - Last Filed: 12/03/24 18:47> Vital Signs 12/02/24 12/02/24 12/02/24 13:12 20:11 22:24 Temperature 97.8 F 98.0 F Pulse Rate 114 H 112 H 110 H Respiratory 18 18 17 Rate Blood Pressure 150/85 135/90 158/90 O2 Sat by Pulse 98 98 96 Oximetry 12/02/24 12/03/24 12/03/24 23:42 03:54 06:07 Temperature 98.4 F 99.9 F H Pulse Rate 110 H 108 H 121 H Respiratory 17 19 17 Rate Blood Pressure 164/72 164/96 173/97 O2 Sat by Pulse 100 96 95 Oximetry 12/03/24 12/03/24 12/03/24 06:12 06:52 07:00 Temperature 99.8 F H Pulse Rate 117 H 120 H 123 H Respiratory 30 H 24 32 H Rate Blood Pressure 171/99 O2 Sat by Pulse 100 98 98 Oximetry 12/03/24 12/03/24 12/03/24 08:00 09:00 10:00 Temperature Pulse Rate 135 H 124 H 125 H Respiratory 32 H 32 H 36 H Rate Blood Pressure 170/89 145/97 172/95 O2 Sat by Pulse 98 98 98 Oximetry - Reevaluation(s) Reevaluation #1: 12/02/24 18:36 Records reviewed (August Martell) Reevaluation #2: 12/02/24 18:36 Patient with no change in symptoms still with severe abdominal pain (August Martell) Reevaluation #3: 12/02/24 18:36 Patient informed of results questions answered (August Martell) Reevaluation #4: Was pt. sent in by a medical professional or institution (, PA, SERVICE DESK AGENT, urgent care, hospital, or alf...) When possible be specific @ -no Did you speak to anyone other than the patient for history (EMS, parent, family, police, friend...)? What history was obtained from this source @ -no Did you review nursing and triage notes (agree or disagree)? Why? @ -agree Are old charts reviewed (outside hosp., previous admission, EMS record, old EKG, old radiological studies, urgent care reports/EKG's, alf records)? Report findings @ -yes Differential Diagnosis (chest pain, altered mental status, abdominal pain women, abdominal pain men, vaginal bleeding, weakness, fever, dyspnea, syncope, headache, dizziness, GI bleed, back pain, seizure, CVA, palpatations, mental health, musculoskeletal)? @ -prior EKG interpreted by me (3pts min.). @ -yes X-rays interpreted by me (1pt min.). @ -no CT interpreted by me (1pt min.). @ -Yes positive for intra-abdominal abscess U/S interpreted by me (1pt. min.). @ -no What testing was considered but not performed or refused? (CT, X-rays, U/S, labs)? Why? @ -none What meds were considered but not given or refused? Why? @ -none Did you discuss the management of the patient with other professionals (professionals i.e. , PA, SERVICE DESK AGENT, lab, RT, psych nurse, healthcare social worker, proofreader, teacher, promotions officer, case assistant)? Give summary @ -no Was smoking cessation discussed for >3mins.? @ -no Was critical care preformed (if so, how long)? @ -no Were there social determinants of health that impacted care today? How? ( Homelessness, low income, unemployed, alcoholism, drug addiction, transportation, low edu. Level, literacy, decrease access to med. care, nursing home, rehab)? @ -none Was there de-escalation of care discussed even if they declined (Discuss DNR or withdrawal of care, Hospice)? DNR status @ -no What co-morbidities impacted this encounter? (DM, HTN, Smoking, COPD, CAD, Cancer, CVA, ARF, Chemo, Hep., AIDS, mental health diagnosis, sleep apnea, morbid obesity)? @ -none Was patient admitted / discharged? Hospital course, mention meds given and route, prescriptions, significant lab abnormalities, going to OR and other pertinent info. @ - 59 female to ER for evaluation of abdominal pain patient does have multiple abdominal intra-abdominal abscess, patient placed on IV antibiotics and will admit for surgical evaluation and treatment Admitted Undiagnosed new problem with uncertain prognosis? @ -no Drug Therapy requiring intensive monitoring for toxicity (Heparin, Nitro, Insulin, Cardizem)? @ -no Were any procedures done? @ -no Diagnosis/symptom? @ -Intra-abdominal abscess Acute, or Chronic, or Acute on Chronic? @ -Acute Uncomplicated (without systemic symptoms) or Complicated (systemic symptoms)? @ -Complicated Side effects of treatment? @ -no Exacerbation, Progression, or Severe Exacerbation? @ -exacerbation Poses a threat to life or bodily function? How? (Chest pain, USA, PA, pneumonia, PE, COPD, DKA, ARF, appy, cholecystitis, CVA, Diverticulitis, Homicidal, Suicidal, threat to staff... and all critical care pts) @ -yes abscess with possibility of sepsis (August Martell) Reevaluation #5: Differential Abdominal Pain Women: Appendicitis, Cholecystitis, diverticulosis, ischemic bowel, pancreatitis, hepatitis, UTI, gastroenteritis, AAA, incarcerated hernia, bowel obstruction, constipation, inflammatory bowel, hepatitis, peptic ulcer disease, splenic infarction, perforated viscus, vulvitis, ovarian torsion, PID, kidney stone, p lacenta abruption, this is not meant to be an all-inclusive list (August Martell) - Consultations Consultation #1: ReSound to agrees to admit this patient (August Martell) Medical Decision Making <Stephen Meraz - Last Filed: 12/02/24 14:05> - Lab Data Result diagrams: 12/02/24 19:47 12/03/24 06:46 - Radiology Data Radiology results: report reviewed (CT abdomen pelvis is positive for pelvic abscess multiple), image reviewed <August Martell - Last Filed: 12/03/24 18:47> - Medical Decision Making I completed the quick note portion of this chart signed Stephen Meraz PA-C (Stephen Meraz) 59 female to ER for evaluation of abdominal pain patient does have multiple abdominal intra-abdominal abscess, patient placed on IV antibiotics and will admit for surgical evaluation and treatment (August Martell) - Lab Data Lab Results 12/02/24 12/02/24 12/02/24 Range/Units 14:56 14:56 14:56 WBC 19.64 H (4.50-10.00) 10*3/uL RBC 3.45 L (4.10-5.20) 10*6/uL Hgb 9.5 L (12.0-15.0) g/dL Hct 29.9 L (37.2-46.3) % MCV 86.7 (80.0-97.0) fL MCH 27.5 (27.0-32.0) pg MCHC 31.8 L (32.0-37.0) g/dL Plt Count 498 H (140-440) 10*3/uL MPV 9.0 L (9.5-12.2) fL Immature Gran % (Auto) 0.7 % Neutrophils % 94.6 % Lymphocytes % 1.4 % Monocytes % 3.1 % Eosinophils % 0.0 % Basophils % 0.2 % Immature Gran # 0.14 H (0.00-0.04) 10*3/uL Neutrophils # 18.57 H (1.80-7.70) 10*3/uL Lymphocytes # 0.28 L (0.90-5.00) 10*3/uL Monocytes # 0.61 (0.20-1.00) 10*3/uL Eosinophils # 0.00 L (0.04-0.35) 10*3/uL Basophils # 0.04 (0.00-0.10) 10*3/uL PT 10.2 (10.0-12.5) sec INR 0.9 (<1.2) APTT 22.2 (22.0-30.0) sec Sodium 137 (137-145) mmol/L Potassium 4.7 (3.5-5.1) mmol/L Chloride 104 (98-107) mmol/L Carbon Dioxide 22 (22-30) mmol/L Anion Gap 11 mmol/L BUN 29 H (7-17) mg/dL Creatinine 0.77 (0.52-1.04) mg/dL Est GFR (CKD-EPI)AfAm >90 (>60 ml/min/1.73 sqM) Est GFR (CKD-EPI)NonAf 86 (>60 ml/min/1.73 sqM) Glucose 322 H (74-99) mg/dL Lactic Ac Sepsis Rflx Plasma Lactic Acid Deangelo (0.7-2.0) mmol/L Calcium 9.4 (8.4-10.2) mg/dL Total Bilirubin 0.7 (0.2-1.3) mg/dL AST 37 H (14-36) U/L ALT 31 (4-34) U/L Alkaline Phosphatase 141 H (38-126) U/L Total Protein 6.7 (6.3-8.2) g/dL Albumin 3.7 (3.5-5.0) g/dL Amylase 48 (30-110) U/L Lipase 61 (23-300) U/L Urine Color Urine Appearance (Clear) Urine pH (5.0-8.0) Ur Specific [place] (1.001-1.035) Urine Protein (Negative) Urine Glucose (UA) (Negative) Urine Ketones (Negative) Urine Blood (Negative) Urine Nitrite (Negative) Urine Bilirubin (Negative) Urine Urobilinogen (<2.0) mg/dL Ur Leukocyte Esterase (Negative) 12/02/24 12/02/24 12/02/24 Range/Units 14:56 14:57 15:55 WBC (4.50-10.00) 10*3/uL RBC (4.10-5.20) 10*6/uL Hgb (12.0-15.0) g/dL Hct (37.2-46.3) % MCV (80.0-97.0) fL MCH (27.0-32.0) pg MCHC (32.0-37.0) g/dL Plt Count (140-440) 10*3/uL MPV (9.5-12.2) fL Immature Gran % (Auto) % Neutrophils % % Lymphocytes % % Monocytes % % Eosinophils % % Basophils % % Immature Gran # (0.00-0.04) 10*3/uL Neutrophils # (1.80-7.70) 10*3/uL Lymphocytes # (0.90-5.00) 10*3/uL Monocytes # (0.20-1.00) 10*3/uL Eosinophils # (0.04-0.35) 10*3/uL Basophils # (0.00-0.10) 10*3/uL PT (10.0-12.5) sec INR (<1.2) APTT (22.0-30.0) sec Sodium (137-145) mmol/L Potassium (3.5-5.1) mmol/L Chloride (98-107) mmol/L Carbon Dioxide (22-30) mmol/L Anion Gap mmol/L BUN (7-17) mg/dL Creatinine (0.52-1.04) mg/dL Est GFR (CKD-EPI)AfAm (>60 ml/min/1.73 sqM) Est GFR (CKD-EPI)NonAf (>60 ml/min/1.73 sqM) Glucose (74-99) mg/dL Lactic Ac Sepsis Rflx Y Plasma Lactic Acid Deangelo 2.9 H* (0.7-2.0) mmol/L Calcium (8.4-10.2) mg/dL Total Bilirubin (0.2-1.3) mg/dL AST (14-36) U/L ALT (4-34) U/L Alkaline Phosphatase (38-126) U/L Total Protein (6.3-8.2) g/dL Albumin (3.5-5.0) g/dL Amylase (30-110) U/L Lipase (23-300) U/L Urine Color Colorless Urine Appearance Clear (Clear) Urine pH 5.5 (5.0-8.0) Ur Specific [place] 1.030 (1.001-1.035) Urine Protein Trace H (Negative) Urine Glucose (UA) 4+ H (Negative) Urine Ketones Negative (Negative) Urine Blood Negative (Negative) Urine Nitrite Negative (Negative) Urine Bilirubin Negative (Negative) Urine Urobilinogen <2.0 (<2.0) mg/dL Ur Leukocyte Esterase Negative (Negative) Critical Care Time Critical Care Time: Yes Total Critical Care Time: 31 <August Martell - Last Filed: 12/03/24 18:47> Disposition <Stephen Meraz - Last Filed: 12/02/24 14:05> Is patient prescribed a controlled substance at d/c from ED?: No Time of Disposition: 18:00 <August Martell - Last Filed: 12/03/24 18:47> Clinical Impression: Abdominal pain, Hernia, Abdominal abscess Disposition: ADMITTED IP TO THIS HOSP Condition: Serious
[2024-12-02 15:09] LABS: Basophils # (A) 0.04 10*3/uL (0.00-0.10); Basophils % (A) 0.2 %; HCT 29.9 % (37.2-46.3); HGB 9.5 g/dL (12.0-15.0); Lymphocytes # (A) 0.28 10*3/uL (0.90-5.00); Lymphocytes % (A) 1.4 %; MCH 27.5 pg (27.0-32.0); MCHC 31.8 g/dL (32.0-37.0); MCV 86.7 fL (80.0-97.0); Monocytes # (A) 0.61 10*3/uL (0.20-1.00); Monocytes % (A) 3.1 %; Neutrophils # (A) 18.57 10*3/uL (1.80-7.70); Neutrophils % (A) 94.6 %; Platelet Count 498 10*3/uL (140-440); RBC 3.45 10*6/uL (4.10-5.20); RDW 15.3 % (11.5-14.5); WBC 19.64 10*3/uL (4.50-10.00)
[2024-12-02 15:34] LABS: ALT 31 U/L (4-34); AST 37 U/L (14-36); African American GFR (CKD) >90 (>60 ml/min/1.73 sqM); Albumin 3.7 g/dL (3.5-5.0); Alkaline Phosphatase 141 U/L (38-126); Amylase 48 U/L (30-110); Anion Gap 11 mmol/L; Blood Urea Nitrogen 29 mg/dL (7-17); Calcium 9.4 mg/dL (8.4-10.2); Carbon Dioxide 22 mmol/L (22-30); Chloride 104 mmol/L (98-107); Glucose 322 mg/dL (74-99); Lipase 61 U/L (23-300); Non-African American GFR(CKD) 86 (>60 ml/min/1.73 sqM); Potassium 4.7 mmol/L (3.5-5.1); Sodium 137 mmol/L (137-145); Total Bilirubin 0.7 mg/dL (0.2-1.3); Total Protein 6.7 g/dL (6.3-8.2)
[2024-12-02 15:43] LABS: INR 0.9 (<1.2); Partial Thromboplastin Time 22.2 sec (22.0-30.0); Prothrombin Time 10.2 sec (10.0-12.5)
--- NOTE | 2024-12-02 17:07 | CT ---
EXAMINATION TYPE: CT abdomen pelvis w con DATE OF EXAM: 12/02/2024 COMPARISON: Prior CT August 19, 2024 CLINICAL INDICATION: Female, 59 years old with history of abdominal pain/hernia, abdominal pain/herni a, TECHNIQUE: CT scan of the abdomen and pelvis is performed with IV Contrast, patient injected with 80 ml mL of Is ovue 300., (none if empty) Oral contrast used: without Oral Contrast (none if empty) CT DLP: 831.8 mGycm, Automated exposure control for dose reduction was used. FINDINGS: LUNG BASES: No significant abnormality is appreciated. LIVER/GB: No significant abnormality is appreciated. PANCREAS: No significant abnormality is seen. SPLEEN: No significant abnormality is seen. ADRENALS: No significant abnormality is seen. KIDNEYS: More prominent 5 mm nonobstructing right renal calculus image 28. Symmetric corticomedullary uptake and excretion without hydronephrosis seen bilaterally. BOWEL: Moderate size hiatal hernia is redemonstrated. No definitive abnormal small or large bowel dil atation. UTERUS/[place]NEXA: No gross abnormality seen. LYMPH NODES: No greater than 1cm abdominal or pelvic lymph nodes are appreciated. OSSEOUS STRUCTURES: No significant abnormality is seen. OTHER: At the site of prior pigtail catheter left pelvis there is new focal thin-walled fluid collect ion measuring 4.1 x 2.8 cm axial image 54. This approaches the left inguinal region where there is la rger multiloculated fluid collection or collections measuring 7.3 x 6.0 cm axial image 70 x 8.7 cm cr aniocaudal dimension coronal image 39. This does not appear to connect to bowel loops. Mild to modera te fat stranding in the anterior wall of the pelvis is present. IMPRESSION: There is new Anterior left groin abnormality could reflect prominent fluid-filled bowel loops versus multiloculate d or multiple abscesses. The latter is suspected. There is likely recurrent small left pelvic abscess just superior to this. Advise surgical evaluation. [facility], , 12/02/2024 5:05 PM
[2024-12-02 17:10] LABS: Appearance,Urine Clear (Clear); Bilirubin,Urine Negative (Negative); Blood,Urine Negative (Negative); Color,Urine Colorless; Glucose,Urine (UA) 4+ (Negative); Ketones,Urine Negative (Negative); Leukocyte Esterase,Urine Negative (Negative); Nitrite,Urine Negative (Negative); PH, Urine 5.5 (5.0-8.0); Protein,Urine Trace (Negative); Urobilinogen,Urine <2.0 mg/dL (<2.0)
[2024-12-02] MEDS ORDERED: VANCOMYCIN IV PER PHARMACY 1 EACH MISC MISCELLANE PRN (18:31)
[2024-12-02] MEDS ORDERED: NALOXONE 0.4 MG/ML 1 ML VIAL IV PRN (18:32)
[2024-12-02 19:55] LABS: Basophils # (A) 0.03 10*3/uL (0.00-0.10); Basophils % (A) 0.2 %; HCT 29.5 % (37.2-46.3); HGB 9.4 g/dL (12.0-15.0); Lymphocytes # (A) 0.59 10*3/uL (0.90-5.00); Lymphocytes % (A) 3.7 %; MCH 27.4 pg (27.0-32.0); MCHC 31.9 g/dL (32.0-37.0); Monocytes # (A) 0.98 10*3/uL (0.20-1.00); Monocytes % (A) 6.1 %; Neutrophils # (A) 14.38 10*3/uL (1.80-7.70); Neutrophils % (A) 89.3 %; Platelet Count 512 10*3/uL (140-440); RBC 3.43 10*6/uL (4.10-5.20); RDW 15.4 % (11.5-14.5)
[2024-12-02] MEDS: SODIUM CHLORIDE 0.9% 1,000 ML IV ONE ×2 (20:05→20:19)
[2024-12-02] MEDS: PANTOPRAZOLE 40 MG/10 ML VIAL IV SCH (20:07)
[2024-12-02 20:09] LABS: ALT 32 U/L (4-34); AST 39 U/L (14-36); African American GFR (CKD) >90 (>60 ml/min/1.73 sqM); Albumin 3.7 g/dL (3.5-5.0); Alkaline Phosphatase 121 U/L (38-126); Anion Gap 10 mmol/L; Blood Urea Nitrogen 25 mg/dL (7-17); Calcium 9.1 mg/dL (8.4-10.2); Carbon Dioxide 22 mmol/L (22-30); Chloride 107 mmol/L (98-107); Glucose 191 mg/dL (74-99); Non-African American GFR(CKD) 88 (>60 ml/min/1.73 sqM); Phosphorus 3.1 mg/dL (2.5-4.5); Potassium 4.5 mmol/L (3.5-5.1); Sodium 139 mmol/L (137-145); Total Bilirubin 0.6 mg/dL (0.2-1.3); Total Protein 6.7 g/dL (6.3-8.2)
[2024-12-02] MEDS: VANCOMYCIN 1,250 MG in SODIUM CHLORIDE 0.9% 250 ML IVPB ONE (20:16)
[2024-12-02] MEDS: PIPERACILLIN-TAZOBACTAM 3.375 GM in SODIUM CHLORIDE 0.9% 100 ML IVPB SCH ×2 (21:57→22:18)
[2024-12-02] MEDS: ZOLPIDEM 5 MG TAB PO PRN (22:17)
[2024-12-02] MEDS: SODIUM CHLORIDE 0.9% 1,000 ML IV SCH (22:19)
[2024-12-02] MEDS: rOPINIRole HCL 4 MG TABLET PO SCH (23:32)
[2024-12-02] MEDS: HYDROmorphone 1 MG/ML 1 ML SYRINGE IVP PRN (23:44)
[2024-12-03] MEDS ORDERED: DEXTROSE 50% SYRINGE 50 ML IVP PRN ×2 (01:05)
--- NOTE | 2024-12-03 01:55 | P.HPIM ---
History of Present Illness H&P Date: 12/02/24 History of present illness; 59-year-old female with PMH of fibromyalgia, multiple sclerosis, migraines, Sjogren's, CAD who presents to the emerged part with due to worsening abdominal pain. She had a recent history of anterior abdominal wall abscess which was drained at this hospital in July. At that time she states that she underwent a weeklong slow drip draining that abscess. Over the past 1-2 weeks she noticed what was originally a small, shamika sized, bump on her lower abdomen develop into which she describes hard, red and uncomfortable area spanning the width of her belly. She states it generally does not cause her much discomfort, however she has occasional pain in her left groin area as well as her left hip. Additionally, she states when bending over she feels a pinching sensation on her belly. She denies any fever, nausea, vomiting, changes in bowel or urinary habits. Labratory review: On arrival: WBCs 19.64, hemoglobin 9.5 hematocrit 29.9, platelet 498; sodium 37, potassium 4.7, BUN 29, creatinine 0.77, lactic acid 2.9 Most recently: WBC 16.10, hemoglobin 9.4, hematocrit 29.5, platelet 512; sodium 139, potassium 4.5, BUN 25, creatinine 0.76, lactic acid 2.3 -UA: 4+ glucose otherwise unremarkable Imaging: - CT abdomen/pelvis showed a new anterior left groin abnormality; left pelvis new focal thin-walled fluid collection measuring 4.1 x 2.8 cm, approaches the left inguinal area where larger multiloculated fluid collection or collections measuring 7.3 x 6.0 cm. Does not appear to connect to bowel loops Vitals: - On arrival: Blood pressure 150/85, heart rate 114, respiratory rate 18, SpO2 98% on room air - Most recently: Blood pressure 135/90, heart rate 112, respiratory rate 18, SpO2 98% room air Patient admitted to internal medicine service REVIEW OF SYSTEMS: Pertinent positives and negatives noted in HPI. The rest of the 14-point review of systems is negative. Physical Exam: General: nontoxic, no distress, appears at stated age Derm: warm, dry, intact Head: atraumatic, normocephalic, symmetric Eyes: EOMI, anicteric sclera Mouth: no lip lesion, mucus membranes moist Cardiovascular: S1 S2 reg, no murmur, rubs, or gallops Lungs: CTA bilateral, no rales, no accessory muscle use Abdominal: soft, non-tender to palpataion, no appreciable organomegaly; erythematous lower abdomen with areas that are firm with some areas more fluctuant. Extremities: no gross muscle atrophy, no edema, no contractures Neuro: Alert, Oriented, CNII-XII grossly intact, gait normal Psych: well appearing, appropriate affect Assessment and plan 59-year-old female with PMH of fibromyalgia, multiple sclerosis, migraines, Sjogren's, CAD who presents to the emerged part with due to worsening abdominal pain. #New left pelvic fluid collection measuring 4.1 x 2.8 cm #New left inguinal area multiloculated fluid collection or collections measuring 1.3 x 6.0 cm #Lactic acidosis secondary to above, resolved #Sepsis - Received vancomycin and Zosyn in ED; continue with vancomycin and Zosyn - Lactic acid 2.9 -> 2.3 -> 2.0 - Infectious disease consulted - General Surgery consulted #Elevated serum glucose without a previous diagnosis of diabetes - Urinalysis showed 4+ glucose -Accu-Cheks ACHS and low-dose sliding scale -Monitor for hypoglycemia -Hemoglobin A1c ordered, currently pending GI prophylaxis: Protonix 40 mg p.o. twice daily DVT prophylaxis: Lovenox 40 mg subcu daily The patient is admitted with an anticipated more than than 2 midnight stay for evaluation of left pelvic abscess. CODE STATUS: Full code Discussed with: Patient Anticipated discharge place: Home Dictation was produced using [employer] dictation software. please excuse any grammatical, word or spelling errors. Kuldeep Edwards MD PGY-1 IM Past Medical History Past Medical History: Coronary Artery Disease (CAD), Chest Pain / Angina, Fibromyalgia, Musculoskeletal Disorder, Renal Disease Additional Past Medical History / Comment(s): Migraines, Shrgren syndrome, DDD, MS,. Right BBB, CKD, Tarsal tunnel syndrome, vertigo History of Any Multi-Drug Resistant Organisms: ESBL Date of last positivie culture/infection: 03/01/22 ESBL E.coli MDRO Source:: URINE Past Surgical History: Appendectomy, Hysterectomy, Orthopedic Surgery Additional Past Surgical History / Comment(s): right ankle, abdominal laparoscopies, Prexacral Neurectomy, Cryosurgery, Past Anesthesia/Blood Transfusion Reactions: No Reported Reaction Past Psychological History: No Psychological Hx Reported Smoking Status: Never smoker Past Alcohol Use History: None Reported Past Drug Use History: None Reported - Past Family History Father Family Medical History: AICD/Pacemaker, Congestive Heart Failure (CHF), COPD, Diabetes Mellitus, Myocardial Infarction ([place]) Additional Family Medical History / Comment(s): Father at age 83 in his sleep. He has history of AICD. Mother Family Medical History: Hypertension Additional Family Medical History / Comment(s): Mother is alive at age 77 with history of hypertension and bronchiectasis. Patient has 2 brothers with no major medical problems. Patient does not have any sisters. Patient is one daughter with no major medical problems. Medications and Allergies Home Medications Medication Instructions Recorded Confirmed Type rOPINIRole HCL [Requip] 10 mg PO HS 09/27/17 12/02/24 History Dextroamphetamine Sulfate 15 mg PO BID 12/20/18 12/02/24 History [Dexedrine] Cetirizine HCl 10 mg PO HS 03/23/21 12/02/24 History Diclofenac Sodium Gel [Voltaren 1% 2 gm TOPICAL BID PRN 03/23/21 12/02/24 His tory Gel] Zolpidem [Ambien] 10 mg PO HS PRN 03/23/21 12/02/24 History traZODone HCL [Desyrel] 100 mg PO HS 11/17/21 12/02/24 History Pantoprazole Sodium [Protonix] 40 mg PO BID 09/02/22 12/02/24 History predniSONE 20 mg PO DAILY 09/02/22 12/02/24 History Ascorbic Acid [Vitamin C] 1,000 mg PO DAILY 08/12/24 12/02/24 History Cyclobenzaprine [Flexeril] 10 mg PO TID PRN 08/12/24 12/02/24 History Melatonin 20 mg PO HS 08/12/24 12/02/24 History Prebiotic/Probiotic 1 cap PO DAILY 08/12/24 12/02/24 History amLODIPine [Norvasc] 5 mg PO DAILY #30 tab 08/19/24 12/02/24 Rx Multivitamins, Thera [Multivitamin 1 tab PO DAILY 12/02/24 12/02/24 History (formulary)] Potassium Chloride ER [K-Dur 20] 20 meq PO DAILY PRN 12/02/24 12/02/24 History ondansetron HCL [Zofran] 8 mg PO BID 12/02/24 12/02/24 History Allergies Allergy/AdvReac Type Severity Reaction Status Date / Time Sulfa (Sulfonamide Allergy Swelling Verified 12/02/24 21:32 Antibiotics) aspirin AdvReac Abdominal Verified 12/02/24 21:32 Pain hydralazine AdvReac Rapid Verified 12/02/24 21:32 Heart Rate Physical Exam Vitals: Vital Signs Temp Pulse Resp BP Pulse Ox 12/02/24 20:11 98.0 F 112 H 18 135/90 98 12/02/24 13:12 97.8 F 114 H 18 150/85 98 Intake and Output 12/02/24 12/02/24 12/02/24 06:59 14:59 22:59 Other: Weight 65.317 kg Results CBC & Chem 7: 12/02/24 19:47 12/02/24 19:47 Labs: Abnormal Lab Results - Last 24 Hours (Table) 12/02/24 12/02/24 12/02/24 Range/Units 14:56 14:56 14:56 WBC 19.64 H (4.50-10.00) 10*3/uL RBC 3.45 L (4.10-5.20) 10*6/uL Hgb 9.5 L (12.0-15.0) g/dL Hct 29.9 L (37.2-46.3) % MCHC 31.8 L (32.0-37.0) g/dL Plt Count 498 H (140-440) 10*3/uL MPV 9.0 L (9.5-12.2) fL Immature Gran # 0.14 H (0.00-0.04) 10*3/uL Neutrophils # 18.57 H (1.80-7.70) 10*3/uL Lymphocytes # 0.28 L (0.90-5.00) 10*3/uL Eosinophils # 0.00 L (0.04-0.35) 10*3/uL BUN 29 H (7-17) mg/dL Glucose 322 H (74-99) mg/dL Plasma Lactic Acid Deangelo 2.9 H* (0.7-2.0) mmol/L AST 37 H (14-36) U/L Alkaline Phosphatase 141 H (38-126) U/L Urine Protein (Negative) Urine Glucose (UA) (Negative) 12/02/24 12/02/24 12/02/24 Range/Units 14:57 19:47 19:47 WBC 16.10 H (4.50-10.00) 10*3/uL RBC 3.43 L (4.10-5.20) 10*6/uL Hgb 9.4 L (12.0-15.0) g/dL Hct 29.5 L (37.2-46.3) % MCHC 31.9 L (32.0-37.0) g/dL Plt Count 512 H (140-440) 10*3/uL MPV 9.0 L (9.5-12.2) fL Immature Gran # 0.12 H (0.00-0.04) 10*3/uL Neutrophils # 14.38 H (1.80-7.70) 10*3/uL Lymphocytes # 0.59 L (0.90-5.00) 10*3/uL Eosinophils # 0.00 L (0.04-0.35) 10*3/uL BUN 25 H (7-17) mg/dL Glucose 191 H (74-99) mg/dL Plasma Lactic Acid Deangelo (0.7-2.0) mmol/L AST 39 H (14-36) U/L Alkaline Phosphatase (38-126) U/L Urine Protein Trace H (Negative) Urine Glucose (UA) 4+ H (Negative) 12/02/24 Range/Units 19:57 WBC (4.50-10.00) 10*3/uL RBC (4.10-5.20) 10*6/uL Hgb (12.0-15.0) g/dL Hct (37.2-46.3) % MCHC (32.0-37.0) g/dL Plt Count (140-440) 10*3/uL MPV (9.5-12.2) fL Immature Gran # (0.00-0.04) 10*3/uL Neutrophils # (1.80-7.70) 10*3/uL Lymphocytes # (0.90-5.00) 10*3/uL Eosinophils # (0.04-0.35) 10*3/uL BUN (7-17) mg/dL Glucose (74-99) mg/dL Plasma Lactic Acid Deangelo 2.3 H* (0.7-2.0) mmol/L AST (14-36) U/L Alkaline Phosphatase (38-126) U/L Urine Protein (Negative) Urine Glucose (UA) (Negative)
[2024-12-03 03:53] LABS: Glucose,Whole Blood 114 mg/dL (70-110)
[2024-12-03] MEDS: ACETAMINOPHEN TAB 325 MG TAB PO PRN (06:06)
[2024-12-03] MEDS ORDERED: IBUPROFEN 600 MG TAB PO PRN (06:28)
[2024-12-03] MEDS: HYDROmorphone 0.5 MG/0.5 ML SYRINGE IVP PRN ×2 (06:49→13:27)
[2024-12-03 07:30] LABS: African American GFR (CKD) >90 (>60 ml/min/1.73 sqM); Anion Gap 6 mmol/L; Blood Urea Nitrogen 15 mg/dL (7-17); Calcium 8.7 mg/dL (8.4-10.2); Carbon Dioxide 26 mmol/L (22-30); Chloride 107 mmol/L (98-107); Glucose 125 mg/dL (74-99); Non-African American GFR(CKD) >90 (>60 ml/min/1.73 sqM); Potassium 3.9 mmol/L (3.5-5.1); Sodium 139 mmol/L (137-145)
[2024-12-03 07:46] LABS: Glucose,Whole Blood 149 mg/dL (70-110)
[2024-12-03] MEDS: INSULIN LISPRO (HumaLOG) 100 UNIT/ML 10 mL VL SQ SCH (07:46)
--- NOTE | 2024-12-03 07:57 | P.GSCN ---
History of Present Illness Consult date: 12/03/24 Reason for Consult: Abdominal wall mass History of present illness: This is a 59-year-old female with multiple medical problems. Patient states she is developed an abdominal mass was growing over the last several weeks. Patient presents emergency room with excruciating pain. The ER nurse called me this morning that her vital signs a change. Patient was admitted to the hospital last night. For treatment of sepsis due to the abdominal wall abscess. Past Medical History Past Medical History: Coronary Artery Disease (CAD), Chest Pain / Angina, Fibromyalgia, Musculoskeletal Disorder, Renal Disease Additional Past Medical History / Comment(s): Migraines, Shrgren syndrome, DDD, MS,. 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 Source:: URINE Past Surgical History: Appendectomy, Hysterectomy, Orthopedic Surgery Additional Past Surgical History / Comment(s): right ankle, abdominal laparoscopies, Prexacral Neurectomy, Cryosurgery, Past Anesthesia/Blood Transfusion Reactions: No Reported Reaction Past Psychological History: No Psychological Hx Reported Smoking Status: Never smoker Past Alcohol Use History: None Reported Past Drug Use History: None Reported - Past Family History Father Family Medical History: AICD/Pacemaker, Congestive Heart Failure (CHF), COPD, Diabetes Mellitus, Myocardial Infarction ([place]) Additional Family Medical History / Comment(s): Father at age 83 in his sleep. He has history of AICD. Mother Family Medical History: Hypertension Additional Family Medical History / Comment(s): Mother is alive at age 77 with history of hypertension and bronchiectasis. Patient has 2 brothers with no major medical problems. Patient does not have any sisters. Patient is one daughter with no major medical problems. Medications and Allergies Home Medications Medication Instructions Recorded Confirmed Type rOPINIRole HCL [Requip] 10 mg PO HS 09/27/17 12/02/24 History Dextroamphetamine Sulfate 15 mg PO BID 12/20/18 12/02/24 History [Dexedrine] Cetirizine HCl 10 mg PO HS 03/23/21 12/02/24 History Diclofenac Sodium Gel [Voltaren 1% 2 gm TOPICAL BID PRN 03/23/21 12/02/24 History Gel] Zolpidem [Ambien] 10 mg PO HS PRN 03/23/21 12/02/24 History traZODone HCL [Desyrel] 100 mg PO HS 11/17/21 12/02/24 History Pantoprazole Sodium [Protonix] 40 mg PO BID 09/02/22 12/02/24 History predniSONE 20 mg PO DAILY 09/02/22 12/02/24 History Ascorbic Acid [Vitamin C] 1,000 mg PO DAILY 08/12/24 12/02/24 History Cyclobenzaprine [Flexeril] 10 mg PO TID PRN 08/12/24 12/02/24 History Melatonin 20 mg PO HS 08/12/24 12/02/24 History Prebiotic/Probiotic 1 cap PO DAILY 08/12/24 12/02/24 History amLODIPine [Norvasc] 5 mg PO DAILY #30 tab 08/19/24 12/02/24 Rx Multivitamins, Thera [Multivitamin 1 tab PO DAILY 12/02/24 12/02/24 History (formulary)] Potassium Chloride ER [K-Dur 20] 20 meq PO DAILY PRN 12/02/24 12/02/24 History ondansetron HCL [Zofran] 8 mg PO BID 12/02/24 12/02/24 History Allergies Allergy/AdvReac Type Severity Reaction Status Date / Time Sulfa (Sulfonamide Allergy Swelling Verified 12/02/24 21:32 Antibiotics) aspirin AdvReac Abdominal Verified 12/02/24 21:32 Pain hydralazine AdvReac Rapid Verified 12/02/24 21:32 Heart Rate Surgical - Exam Vital Signs Temp Pulse Resp BP Pulse Ox 97.8 F 114 H 18 150/85 98 12/02/24 13:12 12/02/24 13:12 12/02/24 13:12 12/02/24 13:12 12/02/24 13:12 - General well developed, moderate distress - Eyes PERRL - ENT normal pinna - Neck no masses - Respiratory normal expansion - Cardiovascular Rhythm: regular - Abdomen Patient is exquisitely tender in the left lower quadrant. There is a mass which appears to be indurated related to a deep abdominal wall abscess. The mass measured approximately 10 cm diameter. Abdomen: soft Results - Labs 12/02/24 19:47 12/03/24 06:46 Abnormal Lab Results - Last 24 Hours (Table) 0512/02/24 12/02/24 Range/Units 14:56 14:56 14:56 WBC 19.64 H (4.50-10.00) 10*3/uL RBC 3.45 L (4.10-5.20) 10*6/uL Hgb 9.5 L (12.0-15.0) g/dL Hct 29.9 L (37.2-46.3) % MCHC 31.8 L (32.0-37.0) g/dL Plt Count 498 H (140-440) 10*3/uL MPV 9.0 L (9.5-12.2) fL Immature Gran # 0.14 H (0.00-0.04) 10*3/uL Neutrophils # 18.57 H (1.80-7.70) 10*3/uL Lymphocytes # 0.28 L (0.90-5.00) 10*3/uL Eosinophils # 0.00 L (0.04-0.35) 10*3/uL BUN 29 H (7-17) mg/dL Glucose 322 H (74-99) mg/dL POC Glucose (mg/dL) (70-110) mg/dL Plasma Lactic Acid Deangelo 2.9 H* (0.7-2.0) mmol/L AST 37 H (14-36) U/L Alkaline Phosphatase 141 H (38-126) U/L Urine Protein (Negative) Urine Glucose (UA) (Negative) 12/02/24 12/02/24 12/02/24 Range/Units 14:57 19:47 19:47 WBC 16.10 H (4.50-10.00) 10*3/uL RBC 3.43 L (4.10-5.20) 10*6/uL Hgb 9.4 L (12.0-15.0) g/dL Hct 29.5 L (37.2-46.3) % MCHC 31.9 L (32.0-37.0) g/dL Plt Count 512 H (140-440) 10*3/uL MPV 9.0 L (9.5-12.2) fL Immature Gran # 0.12 H (0.00-0.04) 10*3/uL Neutrophils # 14.38 H (1.80-7.70) 10*3/uL Lymphocytes # 0.59 L (0.90-5.00) 10*3/uL Eosinophils # 0.00 L (0.04-0.35) 10*3/uL BUN 25 H (7-17) mg/dL Glucose 191 H (74-99) mg/dL POC Glucose (mg/dL) (70-110) mg/dL Plasma Lactic Acid Deangelo (0.7-2.0) mmol/L AST 39 H (14-36) U/L Alkaline Phosphatase (38-126) U/L Urine Protein Trace H (Negative) Urine Glucose (UA) 4+ H (Negative) 12/02/24 12/03/24 12/03/24 Range/Units 19:57 03:52 06:46 WBC (4.50-10.00) 10*3/uL RBC (4.10-5.20) 10*6/uL Hgb (12.0-15.0) g/dL Hct (37.2-46.3) % MCHC (32.0-37.0) g/dL Plt Count (140-440) 10*3/uL MPV (9.5-12.2) fL Immature Gran # (0.00-0.04) 10*3/uL Neutrophils # (1.80-7.70) 10*3/uL Lymphocytes # (0.90-5.00) 10*3/uL Eosinophils # (0.04-0.35) 10*3/uL BUN (7-17) mg/dL Glucose 125 H (74-99) mg/dL POC Glucose (mg/dL) 114 H (70-110) mg/dL Plasma Lactic Acid Deangelo 2.3 H* (0.7-2.0) mmol/L AST (14-36) U/L Alkaline Phosphatase (38-126) U/L Urine Protein (Negative) Urine Glucose (UA) (Negative) 12/03/24 Range/Units 07:44 WBC (4.50-10.00) 10*3/uL RBC (4.10-5.20) 10*6/uL Hgb (12.0-15.0) g/dL Hct (37.2-46.3) % MCHC (32.0-37.0) g/dL Plt Count (140-440) 10*3/uL MPV (9.5-12.2) fL Immature Gran # (0.00-0.04) 10*3/uL Neutrophils # (1.80-7.70) 10*3/uL Lymphocytes # (0.90-5.00) 10*3/uL Eosinophils # (0.04-0.35) 10*3/uL BUN (7-17) mg/dL Glucose (74-99) mg/dL POC Glucose (mg/dL) 149 H (70-110) mg/dL Plasma Lactic Acid Deangelo (0.7-2.0) mmol/L AST (14-36) U/L Alkaline Phosphatase (38-126) U/L Urine Protein (Negative) Urine Glucose (UA) (Negative) Diabetes panel 12/02/24 12/02/24 12/03/24 Range/Units 14:56 19:47 06:46 Sodium 137 139 139 (137-145) mmol/L Potassium 4.7 4.5 3.9 (3.5-5.1) mmol/L Chloride 104 107 107 (98-107) mmol/L Carbon Dioxide 22 22 26 (22-30) mmol/L BUN 29 H 25 H 15 (7-17) mg/dL Creatinine 0.77 0.76 0.70 (0.52-1.04) mg/dL Glucose 322 H 191 H 125 H (74-99) mg/dL Calcium 9.4 9.1 8.7 (8.4-10.2) mg/dL AST 37 H 39 H (14-36) U/L ALT 31 32 (4-34) U/L Alkaline Phosphatase 141 H 121 (38-126) U/L Total Protein 6.7 6.7 (6.3-8.2) g/dL Albumin 3.7 3.7 (3.5-5.0) g/dL Calcium panel 12/02/24 12/02/24 12/03/24 Range/Units 14:56 19:47 06:46 Calcium 9.4 9.1 8.7 (8.4-10.2) mg/dL Phosphorus 3.1 (2.5-4.5) mg/dL Albumin 3.7 3.7 (3.5-5.0) g/dL Pituitary panel 12/02/24 12/02/24 12/03/24 Range/Units 14:56 19:47 06:46 Sodium 137 139 139 (137-145) mmol/L Potassium 4.7 4.5 3.9 (3.5-5.1) mmol/L Chloride 104 107 107 (98-107) mmol/L Carbon Dioxide 22 22 26 (22-30) mmol/L BUN 29 H 25 H 15 (7-17) mg/dL Creatinine 0.77 0.76 0.70 (0.52-1.04) mg/dL Glucose 322 H 191 H 125 H (74-99) mg/dL Calcium 9.4 9.1 8.7 (8.4-10.2) mg/dL Adrenal panel 12/02/24 12/02/24 12/03/24 Range/Units 14:56 19:47 06:46 Sodium 137 139 139 (137-145) mmol/L Potassium 4.7 4.5 3.9 (3.5-5.1) mmol/L Chloride 104 107 107 (98-107) mmol/L Carbon Dioxide 22 22 26 (22-30) mmol/L BUN 29 H 25 H 15 (7-17) mg/dL Creatinine 0.77 0.76 0.70 (0.52-1.04) mg/dL Glucose 322 H 191 H 125 H (74-99) mg/dL Calcium 9.4 9.1 8.7 (8.4-10.2) mg/dL Total Bilirubin 0.7 0.6 (0.2-1.3) mg/dL AST 37 H 39 H (14-36) U/L ALT 31 32 (4-34) U/L Alkaline Phosphatase 141 H 121 (38-126) U/L Total Protein 6.7 6.7 (6.3-8.2) g/dL Albumin 3.7 3.7 (3.5-5.0) g/dL Assessment and Plan Plan: Abdominal wall abscess. Patient will be taken to the emergency room for incision and drainage
[2024-12-03] MEDS: ENOXAPARIN 40 MG/0.4 ML SYRINGE SQ SCH (08:21)
[2024-12-03] MEDS: amLODIPine 5 MG TAB PO SCH (08:50)
[2024-12-03] MEDS: PANTOPRAZOLE 40 MG TABLET PO SCH (08:50)
[2024-12-03] MEDS: ONDANSETRON 4 MG/2 ML VIAL IVP PRN (11:25)
[2024-12-03] MEDS: DEXAMETHASONE SOD PHOSPHATE 4 MG/ML 1 ML VIAL IVP STA (11:28)
[2024-12-03] MEDS: VANCOMYCIN 1,250 MG in SODIUM CHLORIDE 0.9% 250 ML IVPB SCH (11:40)
[2024-12-03] MEDS: HYDROCORTISONE SUCCINATE 100 MG/2 ML VIAL IV STA (11:47)
[2024-12-03] MEDS: HEPARIN SODIUM,PORCINE 5,000 UNIT/ML 1 ML VIAL SQ STA (11:56)
[2024-12-03] MEDS: IV FLUID CONTINUATION 1,000 ML IV ONE ×2 (12:10→14:22)
[2024-12-03] MEDS ORDERED: ROCURONIUM 10 MG/ML (5 ML VIAL) IV ONE (12:23)
[2024-12-03] MEDS ORDERED: PHENYLEPHRINE-0.9% NACL SYG 1,000 MCG/10 ML SYRINGE ONE (12:23)
[2024-12-03] MEDS ORDERED: MIDAZOLAM 2 MG/2 ML VIAL ONE (12:23)
[2024-12-03] MEDS ORDERED: SUGAMMADEX SODIUM 100 MG/ML SYR IV ONE (12:23)
[2024-12-03] MEDS ORDERED: LIDOCAINE 1% INJ 10MG/ML (20 ML MDV) ONE (12:23)
[2024-12-03] MEDS ORDERED: PROPOFOL 10 MG/ML 20 ML VIAL IV ONE (12:23)
[2024-12-03] MEDS ORDERED: fentaNYL (PF) 50 MCG/ML 2 ML AMP ONE (12:23)
[2024-12-03] MEDS ORDERED: NALOXONE 0.4 MG/ML 1 ML VIAL IV PRN (13:04)
--- NOTE | 2024-12-03 13:04 | P.OP ---
Date of Procedure: 12/03/24 Preoperative Diagnosis: Ab left inguinal abscess Postoperative Diagnosis: Left inguinal abscess Procedure(s) Performed: Excision drainage of left inguinal abscess Anesthesia: JAIR Surgeon: Eddie Cook Estimated Blood Loss (ml): 5 Pathology: other (Culture) Condition: stable Disposition: PACU Description of Procedure: Patient was placed on the operative table in the supine position. She received general anesthesia. Slaughter catheter was placed. Patient had an obvious mass in her left groin. The skin over the inflammatory mass was incised. There was air entered in the abscess cavity. The abscess cavity was then cultured. There was approximately 50 cc of purulent fluid. The wound was irrigated. And then a wet-to-dry Kerlix dressing was placed in the abscess cavity. Sterile dressing was applied. Patient Toller procedure well. She was sent to recovery room in s table condition.
[2024-12-03 13:32] LABS: Glucose,Whole Blood 196 mg/dL (70-110)
--- NOTE | 2024-12-03 15:20 | P.PN ---
Subjective Progress Note Date: 12/03/24 Hospital course: Patient is a pleasant 59-year-old female with a past medical history of multiple sclerosis, Sjogren's disease, CAD, fibromyalgia, abdominal hernia, and previous abdominal abscess drained 08/10. She presented to the hospital secondary to progressively worsening abdominal pain over the past 1 to 2 weeks. Upon arrival to our facility, patient underwent evaluation in the emergency department. Vital signs upon arrival show blood pressure 150/85, heart rate 114, respiratory rate 18, temp 97.8 F, and SpO2 of 98% on room air. Labs completed and reviewed. CBC showing leukocytosis with WBC count of 19.64, normocytic anemia with hemoglobin of 9.5, and thrombocytosis with platelet count of 498. BMP showing prerenal azotemia with BUN of 29 and hyperglycemia with blood glucose of 322. Initial lactic acid was 2.9. Liver profile showing transaminitis with AST of 37, ALT of 31, and alkaline phosphatase of 141. Amylase and lipase normal findings. Urinalysis positive for trace protein and glucose. CT abdomen and pelvis completed showing a new focal thin-walled fluid collection measuring 4.1 x 2.8 cm and left inguinal region larger multiloculated fluid collection measuring 7.3 x 6.0 cm. Patient started on broad-spectrum antibiotics with vancomycin and Zosyn. She was admitted under our services with consultation to general surgery and infectious disease. Physical exam: Patient seen and fully evaluated at bedside. She reports having a difficult morning with 10 out of 10 pain which is now stated to be improved to 5 or 6 out of 10 at this time after pain medication received by RN. She denies having any nausea or vomiting, headache, lightheadedness, dizziness, chest pain, palpitations, shortness of breath, or experiencing any difficulties with or changes in urinary or bowel function. Vital signs reviewed and stable. General: Nontoxic, no distress and appears stated age. Derm: Skin warm and dry, normal coloration for ethnicity. Head: Atraumatic, normocephalic and symmetric. Eyes: EOM's intact, no lid lag, and anicteric sclera Mouth: no lip lesions, mucus membranes moist Cardiovascular: regular rate and rhythm with normal S1S2, no murmur, positive posterior tibial pulses bilaterally, and cap refill < 2 seconds. Lungs: Respirations even, regular, and unlabored on room air. Lungs CTA bilaterally, no rhonchi, no rales, no wheezing, and no accessory muscle usage. Abdominal: Taut and distended abdomen. Left lower quadrant with large palpable mass with reports of very tenderness upon palpation. Bilateral upper quadrants firm distended patient reports upper abdomen at baseline. Ext: ROM intact. No gross muscle atrophy, no edema, no contractures Neuro: Speech clear, face symmetrical and CN II-XII grossly intact with no noted focal neuro deficits Psych: Alert and oriented to person, place, time, and situation. Appropriate and pleasant affect. Assessment and Plan of Care: Abdominal wall abscess Sepsis on arrival, secondary to above Transaminitis -General Surgery following, planning to take patient to the OR later this morning for I&D -Infectious disease following, appreciate recommendations. -Continue IV antibiotics with Zosyn 3.375 g every 8 hours and vancomycin 1250 mg every 16 hours. Closely monitor renal function and vancomycin trough for any signs of vancomycin associated renal toxicity. -Continue symptomatic care and pain management. Hyperglycemia -Continue glycemic protocol with Humalog sliding scale. Follow-up on hemoglobin A1c results. Hypertension -Monitor vital signs and continue daily medication regimen with amlodipine 5 mg daily. Data and imaging reviewed: - Morning labs reviewed. CBC showing slight improvement of leukocytosis with WBC count decreasing from 19.64 down to 16.10. Hemoglobin stable at 9.4. BMP showing improvement of prerenal azotemia with BUN of 15, creatinine 0.70, GFR greater than 90. Blood glucose 125. Lactic acid trended downwards from 2.9-2 0.3-2.0. - Vital signs reviewed. Blood pressure 145/97, heart rate 124, respiratory rate 32, temp 99.8 F, and SpO2 of 98% on room air. CODE STATUS: Full code DVT prophylaxis: Lovenox Anticipated discharge date: Pending clinical course Anticipated discharge place: Pending clinical course, likely home Patient was seen independently by Nurse Pracitioner. This document was prepared using [employer] dictation software. Please allow for errors in guitar instructor, while rare they do occur. Randal Tong NP rendered care for this patient independently, reviewed the findings and plan as documented in the note above and agree with plan. I did not physically speak with or examine the patient on this date. Objective - Vital Signs Vital signs: Vital Signs Temp 99.8 F H 12/03/24 07:00 Pulse 135 H 12/03/24 08:00 Resp 32 H 12/03/24 08:00 BP 170/89 12/03/24 08:00 Pulse Ox 98 12/03/24 08:00 FiO2 Intake & Output 12/02/24 12/03/24 12/03/24 18:59 06:59 18:59 Weight 65.317 kg - Labs CBC & Chem 7: 12/02/24 19:47 12/03/24 06:46 Labs: Abnormal Lab Results - Last 24 Hours (Table) 12/02/24 12/02/24 12/02/24 Range/Units 14:56 14:56 14:56 WBC 19.64 H (4.50-10.00) 10*3/uL RBC 3.45 L (4.10-5.20) 10*6/uL Hgb 9.5 L (12.0-15.0) g/dL Hct 29.9 L (37.2-46.3) % MCHC 31.8 L (32.0-37.0) g/dL Plt Count 498 H (140-440) 10*3/uL MPV 9.0 L (9.5-12.2) fL Immature Gran # 0.14 H (0.00-0.04) 10*3/uL Neutrophils # 18.57 H (1.80-7.70) 10*3/uL Lymphocytes # 0.28 L (0.90-5.00) 10*3/uL Eosinophils # 0.00 L (0.04-0.35) 10*3/uL BUN 29 H (7-17) mg/dL Glucose 322 H (74-99) mg/dL POC Glucose (mg/dL) (70-110) mg/dL Plasma Lactic Acid Deangelo 2.9 H* (0.7-2.0) mmol/L AST 37 H (14-36) U/L Alkaline Phosphatase 141 H (38-126) U/L Urine Protein (Negative) Urine Glucose (UA) (Negative) 12/02/24 12/02/24 12/02/24 Range/Units 14:57 19:47 19:47 WBC 16.10 H (4.50-10.00) 10*3/uL RBC 3.43 L (4.10-5.20) 10*6/uL Hgb 9.4 L (12.0-15.0) g/dL Hct 29.5 L (37.2-46.3) % MCHC 31.9 L (32.0-37.0) g/dL Plt Count 512 H (140-440) 10*3/uL MPV 9.0 L (9.5-12.2) fL Immature Gran # 0.12 H (0.00-0.04) 10*3/uL Neutrophils # 14.38 H (1.80-7.70) 10*3/uL Lymphocytes # 0.59 L (0.90-5.00) 10*3/uL Eosinophils # 0.00 L (0.04-0.35) 10*3/uL BUN 25 H (7-17) mg/dL Glucose 191 H (74-99) mg/dL POC Glucose (mg/dL) (70-110) mg/dL Plasma Lactic Acid Deangelo (0.7-2.0) mmol/L AST 39 H (14-36) U/L Alkaline Phosphatase (38-126) U/L Urine Protein Trace H (Negative) Urine Glucose (UA) 4+ H (Negative) 12/02/24 12/03/24 12/03/24 Range/Units 19:57 03:52 06:46 WBC (4.50-10.00) 10*3/uL RBC (4.10-5.20) 10*6/uL Hgb (12.0-15.0) g/dL Hct (37.2-46.3) % MCHC (32.0-37.0) g/dL Plt Count (140-440) 10*3/uL MPV (9.5-12.2) fL Immature Gran # (0.00-0.04) 10*3/uL Neutrophils # (1.80-7.70) 10*3/uL Lymphocytes # (0.90-5.00) 10*3/uL Eosinophils # (0.04-0.35) 10*3/uL BUN (7-17) mg/dL Glucose 125 H (74-99) mg/dL POC Glucose (mg/dL) 114 H (70-110) mg/dL Plasma Lactic Acid Deangelo 2.3 H* (0.7-2.0) mmol/L AST (14-36) U/L Alkaline Phosphatase (38-126) U/L Urine Protein (Negative) Urine Glucose (UA) (Negative) 12/03/24 Range/Units 07:44 WBC (4.50-10.00) 10*3/uL RBC (4.10-5.20) 10*6/uL Hgb (12.0-15.0) g/dL Hct (37.2-46.3) % MCHC (32.0-37.0) g/dL Plt Count (140-440) 10*3/uL MPV (9.5-12.2) fL Immature Gran # (0.00-0.04) 10*3/uL Neutrophils # (1.80-7.70) 10*3/uL Lymphocytes # (0.90-5.00) 10*3/uL Eosinophils # (0.04-0.35) 10*3/uL BUN (7-17) mg/dL Glucose (74-99) mg/dL POC Glucose (mg/dL) 149 H (70-110) mg/dL Plasma Lactic Acid Deangelo (0.7-2.0) mmol/L AST (14-36) U/L Alkaline Phosphatase (38-126) U/L Urine Protein (Negative) Urine Glucose (UA) (Negative)
[2024-12-03] MEDS: D5-0.45% NACL WITH KCL 20MEQ/L 1,000 ML IV SCH (19:56)
[2024-12-03 20:29] LABS: Glucose,Whole Blood 306 mg/dL (70-110)
[2024-12-03] MEDS: LORATADINE 10 MG TAB PO SCH (20:51)
--- NOTE | 2024-12-03 22:03 | P.CONS ---
History of Present Illness - Reason for Consult Consult date: 12/03/24 Sepsis Requesting physician: August Martell - Chief Complaint Left lower abdominal pain and swelling x days - History of Present Illness Patient is a 59-year-old female with a past medical history significant for coronary artery disease, tunnel syndrome Sjogren syndrome did have an episode of intra-abdominal abscess in July [address]-guided culture that time was positive for Prevotella Proteus and Streptococcus treated with IV normal antibiotic therapy and the patient seem to have done well since then patient now presenting to the hospital concerning for small lump in the left lower abdominal area that seem to have increased in size over the last 1 week. Denies any history of any trauma she been complaining of pain to the left lower abdominal area describing it to be sharp moderate intense without radiation patient did have some nausea but no vomiting and denies any diarrhea constipation did have some chills but denies high-grade fever on presentation to the hospital patient did have a low-grade fever of 99.8 degrees for night patient was tachycardic but not hypotensive mildly hypoxic currently on 2 L nasal cannula oxygen patient did have a white count of 16.10 with a left shift BUN and creatinine normal electrolytes and normal liver enzymes AST mildly elevated her rest of them are normal urine has been negative patient did have a abdominal pelvis CT anterior left groin abnormality could reflect prominent fluid-filled bowel loops versus multiloculated or multiple abscesses patient was started on vancomycin and Zosyn infectious disease was consulted for further management of antibiotic therapy Review of Systems Positive point and negatives has been mentioned in the HPI, complete review of systems was performed and all other systems are negative Past Medical History Past Medical History: Coronary Artery Disease (CAD), Chest Pain / Angina, Fibromyalgia, Musculoskeletal Disorder, Renal Disease Additional Past Medical History / Comment(s): Migraines, Shrgren syndrome, DDD, MS,. 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 Source:: URINE Past Surgical History: Appendectomy, Hysterectomy, Orthopedic Surgery Additional Past Surgical History / Comment(s): right ankle, abdominal laparoscopies, Prexacral Neurectomy, Cryosurgery, Past Anesthesia/Blood Transfusion Reactions: No Reported Reaction Past Psychological History: No Psychological Hx Reported Smoking Status: Never smoker Past Alcohol Use History: None Reported Past Drug Use History: None Reported - Past Family History Father Family Medical History: AICD/Pacemaker, Congestive Heart Failure (CHF), COPD, Diabetes Mellitus, Myocardial Infarction (CT) Additional Family Medical History / Comment(s): Father at age 83 in his sleep. He has history of AICD. Mother Family Medical History: Hypertension Additional Family Medical History / Comment(s): Mother is alive at age 77 with history of hypertension and bronchiectasis. Patient has 2 brothers with no major medical problems. Patient does not have any sisters. Patient is one daughter with no major medical problems. Medications and Allergies Home Medications Medication Instructions Recorded Confirmed Type rOPINIRole HCL [Requip] 10 mg PO HS 09/27/17 12/02/24 History Dextroamphetamine Sulfate 15 mg PO BID 12/20/18 12/02/24 History [Dexedrine] Cetirizine HCl 10 mg PO HS 03/23/21 12/02/24 History Diclofenac Sodium Gel [Voltaren 1% 2 gm TOPICAL BID PRN 03/23/21 12/02/24 History Gel] Zolpidem [Ambien] 10 mg PO HS PRN 03/23/21 12/02/24 History traZODone HCL [Desyrel] 100 mg PO HS 11/17/21 12/02/24 History Pantoprazole Sodium [Protonix] 40 mg PO BID 09/02/22 12/02/24 History predniSONE 20 mg PO DAILY 09/02/22 12/02/24 History Ascorbic Acid [Vitamin C] 1,000 mg PO DAILY 08/12/24 12/02/24 History Cyclobenzaprine [Flexeril] 10 mg PO TID PRN 08/12/24 12/02/24 History Melatonin 20 mg PO HS 08/12/24 12/02/24 History Prebiotic/Probiotic 1 cap PO DAILY 08/12/24 12/02/24 History amLODIPine [Norvasc] 5 mg PO DAILY #30 tab 08/19/24 12/02/24 Rx Multivitamins, Thera [Multivitamin 1 tab PO DAILY 12/02/24 12/02/24 History (formulary)] Potassium Chloride ER [K-Dur 20] 20 meq PO DAILY PRN 12/02/24 12/02/24 History ondansetron HCL [Zofran] 8 mg PO BID 12/02/24 12/02/24 History Allergies Allergy/AdvReac Type Severity Reaction Status Date / Time Sulfa (Sulfonamide Allergy Swelling Verified 12/03/24 11:11 Antibiotics) aspirin AdvReac Abdominal Verified 12/03/24 11:11 Pain hydralazine AdvReac Rapid Verified 12/03/24 11:11 Heart Rate Physical Exam Vitals: Vital Signs Temp Pulse Resp BP Pulse Ox 12/03/24 11:05 128 H 32 H 149/89 98 12/03/24 10:00 125 H 36 H 172/95 98 12/03/24 09:00 124 H 32 H 145/97 98 12/03/24 08:00 135 H 32 H 170/89 98 12/03/24 07:00 99.8 F H 123 H 32 H 171/99 98 12/03/24 06:52 120 H 24 98 12/03/24 06:12 117 H 30 H 100 12/03/24 06:07 99.9 F H 121 H 17 173/97 95 12/03/24 03:54 98.4 F 108 H 19 164/96 96 12/02/24 23:42 110 H 17 164/72 100 12/02/24 22:24 110 H 17 158/90 96 12/02/24 20:11 98.0 F 112 H 18 135/90 98 12/02/24 13:12 97.8 F 114 H 18 150/85 98 GENERAL DESCRIPTION: Middle aged female lying in bed, no distress. No tachypnea or accessory muscle of respiration use. HEENT: Shows Pallor , no scleral icterus. Oral mucous membrane is dry. NECK: Trachea central, no thyromegaly. LUNGS: Unlabored breathing. Clear to auscultation anteriorly. No wheeze or crackle. HEART: S1, S2, regular rate and rhythm. No loud murmur ABDOMEN: Soft, left lower quadrants swelling and redness tenderness to touch EXTREMITIES: No edema of feet. SKIN: No rash, no masses palpable. NEUROLOGICAL: The patient is awake, alert, oriented x3, mood and affect normal. Results CBC & Chem 7: 12/02/24 19:47 12/03/24 06:46 Labs: Abnormal Lab Results - Last 24 Hours (Table) 12/02/24 12/02/24 12/02/24 Range/Units 14:56 14:56 14:56 WBC 19.64 H (4.50-10.00) 10*3/uL RBC 3.45 L (4.10-5.20) 10*6/uL Hgb 9.5 L (12.0-15.0) g/dL Hct 29.9 L (37.2-46.3) % MCHC 31.8 L (32.0-37.0) g/dL Plt Count 498 H (140-440) 10*3/uL MPV 9.0 L (9.5-12.2) fL Immature Gran # 0.14 H (0.00-0.04) 10*3/uL Neutrophils # 18.57 H (1.80-7.70) 10*3/uL Lymphocytes # 0.28 L (0.90-5.00) 10*3/uL Eosinophils # 0.00 L (0.04-0.35) 10*3/uL BUN 29 H (7-17) mg/dL Glucose 322 H (74-99) mg/dL POC Glucose (mg/dL) (70-110) mg/dL Plasma Lactic Acid Deangelo 2.9 H* (0.7-2.0) mmol/L AST 37 H (14-36) U/L Alkaline Phosphatase 141 H (38-126) U/L Urine Protein (Negative) Urine Glucose (UA) (Negative) 12/02/24 12/02/24 12/02/24 Range/Units 14:57 19:47 19:47 WBC 16.10 H (4.50-10.00) 10*3/uL RBC 3.43 L (4.10-5.20) 10*6/uL Hgb 9.4 L (12.0-15.0) g/dL Hct 29.5 L (37.2-46.3) % MCHC 31.9 L (32.0-37.0) g/dL Plt Count 512 H (140-440) 10*3/uL MPV 9.0 L (9.5-12.2) fL Immature Gran # 0.12 H (0.00-0.04) 10*3/uL Neutrophils # 14.38 H (1.80-7.70) 10*3/uL Lymphocytes # 0.59 L (0.90-5.00) 10*3/uL Eosinophils # 0.00 L (0.04-0.35) 10*3/uL BUN 25 H (7-17) mg/dL Glucose 191 H (74-99) mg/dL POC Glucose (mg/dL) (70-110) mg/dL Plasma Lactic Acid Deangelo (0.7-2.0) mmol/L AST 39 H (14-36) U/L Alkaline Phosphatase (38-126) U/L Urine Protein Trace H (Negative) Urine Glucose (UA) 4+ H (Negative) 12/02/24 12/03/24 12/03/24 Range/Units 19:57 03:52 06:46 WBC (4.50-10.00) 10*3/uL RBC (4.10-5.20) 10*6/uL Hgb (12.0-15.0) g/dL Hct (37.2-46.3) % MCHC (32.0-37.0) g/dL Plt Count (140-440) 10*3/uL MPV (9.5-12.2) fL Immature Gran # (0.00-0.04) 10*3/uL Neutrophils # (1.80-7.70) 10*3/uL Lymphocytes # (0.90-5.00) 10*3/uL Eosinophils # (0.04-0.35) 10*3/uL BUN (7-17) mg/dL Glucose 125 H (74-99) mg/dL POC Glucose (mg/dL) 114 H (70-110) mg/dL Plasma Lactic Acid Deangelo 2.3 H* (0.7-2.0) mmol/L AST (14-36) U/L Alkaline Phosphatase (38-126) U/L Urine Protein (Negative) Urine Glucose (UA) (Negative) 12/03/24 Range/Units 07:44 WBC (4.50-10.00) 10*3/uL RBC (4.10-5.20) 10*6/uL Hgb (12.0-15.0) g/dL Hct (37.2-46.3) % MCHC (32.0-37.0) g/dL Plt Count (140-440) 10*3/uL MPV (9.5-12.2) fL Immature Gran # (0.00-0.04) 10*3/uL Neutrophils # (1.80-7.70) 10*3/uL Lymphocytes # (0.90-5.00) 10*3/uL Eosinophils # (0.04-0.35) 10*3/uL BUN (7-17) mg/dL Glucose (74-99) mg/dL POC Glucose (mg/dL) 149 H (70-110) mg/dL Plasma Lactic Acid Deangelo (0.7-2.0) mmol/L AST (14-36) U/L Alkaline Phosphatase (38-126) U/L Urine Protein (Negative) Urine Glucose (UA) (Negative) Assessment and Plan (1) Abdominal abscess Current Visit: Yes Status: Acute Code(s): [id number] - SNOMED Code(s): 83237859 (2) Sepsis Current Visit: No Status: Acute Code(s): A41.9 - SEPSIS, UNSPECIFIED ORGANISM SNOMED Code(s): 63620629 Plan: 1patient presented to the hospital with sepsis in this patient who did have a low-grade fever tachycardia elevated white count meeting criteria for SIRS/sepsis source is left lower quadrant abscess possibly diverticular abscess in this patient who did have a previous history of intra-abdominal abscess which was a mix of anaerobic anaerobes likely perforated diverticulitis and secondary abscess 2await surgical drainage of this abscess and fluid should be sent for culture both aerobic and anaerobic 3we will empirically treat the patient with Zosyn however discontinue vancomycin decrease risk of nephrotoxicity as less likely gram-positive infection Question concern answered We will follow on clinical condition and cultures to further adjust medication if needed Thank you for this consultation we will follow the patient along with you Dictation was produced using [employer] dictation software. please excuse any grammatical, word or spelling errors. Time with Patient: Greater than 30
[2024-12-03 22:53] LABS: Glucose,Whole Blood 215 mg/dL (70-110)
[2024-12-04 04:38] LABS: ALT 25 U/L (4-34); AST 22 U/L (14-36); African American GFR (CKD) >90 (>60 ml/min/1.73 sqM); Albumin 2.9 g/dL (3.5-5.0); Albumin/Globulin Ratio 1.1; Alkaline Phosphatase 115 U/L (38-126); Anion Gap 9 mmol/L; Blood Urea Nitrogen 14 mg/dL (7-17); Calcium 8.7 mg/dL (8.4-10.2); Carbon Dioxide 26 mmol/L (22-30); Chloride 102 mmol/L (98-107); Globulin 2.6 g/dL; Glucose 132 mg/dL (74-99); Magnesium 2.1 mg/dL (1.6-2.3); Non-African American GFR(CKD) >90 (>60 ml/min/1.73 sqM); Potassium 3.9 mmol/L (3.5-5.1); Sodium 137 mmol/L (137-145); Total Bilirubin 0.2 mg/dL (0.2-1.3); Total Protein 5.5 g/dL (6.3-8.2)
[2024-12-04 05:46] LABS: Glucose,Whole Blood 157 mg/dL (70-110)
[2024-12-04 08:18] LABS: Basophils # (A) 0.03 X 10*3/uL (0.00-0.10); Basophils % (A) 0.2 %; Eosinophils # (A) 0 X 10*3/uL (0.04-0.35); Eosinophils % (A) 0 %; HCT 27.8 % (37.2-46.3); HGB 8.2 g/dL (12.0-15.0); Lymphocytes # (A) 0.84 X 10*3/uL (0.90-5.00); Lymphocytes % (A) 5.7 %; MCH 26.8 pg (27.0-32.0); MCHC 29.5 g/dL (32.0-37.0); MCV 90.8 FL (80.0-97.0); Mean Platelet Volume 9.1 FL (9.5-12.2); Monocytes % (A) 5.5 %; NRBC Per 100 WBC 0 X 10*3/uL (0.00-0.01); Neutrophils # (A) 12.86 X 10*3/uL (1.80-7.70); Neutrophils % (A) 87.8 %; Platelet Count 536 X 10*3/uL (140-440); RBC 3.06 X 10*6/uL (4.10-5.20); RDW 15.5 % (11.5-14.5); WBC 14.64 X 10*3/uL (4.50-10.00)
[2024-12-04] MEDS ORDERED: ENOXAPARIN 40 MG/0.4 ML SYRINGE SQ SCH (09:00)
[2024-12-04] MEDS: HYDROcodone/APAP 5-325MG 1 EACH TAB PO PRN (11:32)
[2024-12-04 11:39] LABS: Glucose,Whole Blood 100 mg/dL (70-110)
--- NOTE | 2024-12-04 12:07 | P.PN ---
Subjective Progress Note Date: 12/04/24 SURGICAL PROGRESS NOTE CHIEF COMPLAINT: Left inguinal abscess HISTORY OF PRESENT ILLNESS: Postop day #1 status post excision and drainage of left inguinal abscess. Patient's pain is controlled. She is having flatus. Afebrile. WBC is down from 16-14 hemoglobin 8.2. PHYSICAL EXAM: VITAL SIGNS: Reviewed. GENERAL: Well-developed in no acute distress. ABDOMEN: Soft. Nondistended. Surgical dressing is pulled down. There is serosanguineous drainage noted on the dressing and packing. Packing is intact. NEUROLOGIC: Alert and oriented. Cranial nerves II through XII grossly intact. ASSESSMENT: 1. Left inguinal abscess PLAN: - Remove packing today while in shower. Replace packing and dressing. - Consult block and case maker for home care - Antibiotics per ID service - Continue pain management Physician Second Worker note has been reviewed by physician. Signing provider agrees with the documented findings, assessment, and plan of care. Objective - Vital Signs Vital signs: Vital Signs Temp 98.1 F 12/04/24 07:03 Pulse 98 12/04/24 07:03 Resp 16 12/04/24 07:03 BP 161/91 12/04/24 07:03 Pulse Ox 97 12/04/24 07:03 FiO2 Intake & Output 12/03/24 12/04/24 12/04/24 18:59 06:59 18:59 Intake Total 1000 Output Total 510 Balance 490 Weight 65.317 kg Intake: IV 1000 Output: Urine 500 Estimated Blood Loss 10 Other: Voiding Method Toilet # Voids 2 - Labs CBC & Chem 7: 12/04/24 03:09 12/04/24 03:09 Labs: Abnormal Lab Results - Last 24 Hours (Table) 12/03/24 12/03/24 12/03/24 Range/Units 13:31 20:26 22:52 WBC (4.50-10.00) X 10*3/uL RBC (4.10-5.20) X 10*6/uL Hgb (12.0-15.0) g/dL Hct (37.2-46.3) % MCH (27.0-32.0) pg MCHC (32.0-37.0) g/dL RDW (11.5-14.5) % Plt Count (140-440) X 10*3/uL MPV (9.5-12.2) FL Immature Gran # (0.00-0.04) X 10*3/uL Neutrophils # (1.80-7.70) X 10*3/uL Lymphocytes # (0.90-5.00) X 10*3/uL Eosinophils # (0.04-0.35) X 10*3/uL Glucose (74-99) mg/dL POC Glucose (mg/dL) 196 H 306 H 215 H (70-110) mg/dL Hemoglobin A1c (<=6.0) % Total Protein (6.3-8.2) g/dL Albumin (3.5-5.0) g/dL 12/04/24 12/04/24 12/04/24 Range/Units 03:09 03:09 03:09 WBC 14.64 H (4.50-10.00) X 10*3/uL RBC 3.06 L (4.10-5.20) X 10*6/uL Hgb 8.2 L (12.0-15.0) g/dL Hct 27.8 L (37.2-46.3) % MCH 26.8 L (27.0-32.0) pg MCHC 29.5 L (32.0-37.0) g/dL RDW 15.5 H (11.5-14.5) % Plt Count 536 H (140-440) X 10*3/uL MPV 9.1 L (9.5-12.2) FL Immature Gran # 0.11 H (0.00-0.04) X 10*3/uL Neutrophils # 12.86 H (1.80-7.70) X 10*3/uL Lymphocytes # 0.84 L (0.90-5.00) X 10*3/uL Eosinophils # 0 L (0.04-0.35) X 10*3/uL Glucose 132 H (74-99) mg/dL POC Glucose (mg/dL) (70-110) mg/dL Hemoglobin A1c 6.6 H (<=6.0) % Total Protein 5.5 L (6.3-8.2) g/dL Albumin 2.9 L (3.5-5.0) g/dL 12/04/24 Range/Units 05:43 WBC (4.50-10.00) X 10*3/uL RBC (4.10-5.20) X 10*6/uL Hgb (12.0-15.0) g/dL Hct (37.2-46.3) % MCH (27.0-32.0) pg MCHC (32.0-37.0) g/dL RDW (11.5-14.5) % Plt Count (140-440) X 10*3/uL MPV (9.5-12.2) FL Immature Gran # (0.00-0.04) X 10*3/uL Neutrophils # (1.80-7.70) X 10*3/uL Lymphocytes # (0.90-5.00) X 10*3/uL Eosinophils # (0.04-0.35) X 10*3/uL Glucose (74-99) mg/dL POC Glucose (mg/dL) 157 H (70-110) mg/dL Hemoglobin A1c (<=6.0) % Total Protein (6.3-8.2) g/dL Albumin (3.5-5.0) g/dL Microbiology - Last 24 Hours (Table) 12/03/24 12:55 Gram Stain - Preliminary Abdomen
[2024-12-04 16:50] LABS: Glucose,Whole Blood 170 mg/dL (70-110)
--- NOTE | 2024-12-04 17:38 | P.PN ---
Subjective Progress Note Date: 12/04/24 Hospital course: Patient is a pleasant 59-year-old female with a past medical history of multiple sclerosis, Sjogren's disease, CAD, fibromyalgia, abdominal hernia, and previous abdominal abscess drained 08/10. She presented to the hospital secondary to progressively worsening abdominal pain over the past 1 to 2 weeks. Upon arrival to our facility, patient underwent evaluation in the emergency department. Vital signs upon arrival show blood pressure 150/85, heart rate 114, respiratory rate 18, temp 97.8 F, and SpO2 of 98% on room air. Labs completed and reviewed. CBC showing leukocytosis with WBC count of 19.64, normocytic anemia with hemoglobin of 9.5, and thrombocytosis with platelet count of 498. BMP showing prerenal azotemia with BUN of 29 and hyperglycemia with blood glucose of 322. Initial lactic acid was 2.9. Liver profile showing transaminitis with AST of 37, ALT of 31, and alkaline phosphatase of 141. Amylase and lipase normal findings. Urinalysis positive for trace protein and glucose. CT abdomen and pelvis completed showing a new focal thin-walled fluid collection measuring 4.1 x 2.8 cm and left inguinal region larger multiloculated fluid collection measuring 7.3 x 6.0 cm. Patient started on broad-spectrum antibiotics with vancomycin and Zosyn. She was admitted under our services with consultation to general surgery and infectious disease. Patient underwent incision and drainage of left inguinal abscess on 12/03/2024 Physical exam: Patient seen and fully evaluated at bedside. She reports abdominal pain has improved. She reports a different type of pain with mild burning at incision site. She denies having any nausea or vomiting, chills, diaphoresis, or experiencing any difficulties with urinary or bowel function. Patient reports tolerating oral intake and denies having any other complaints at this time. Vital signs reviewed and stable. General: Nontoxic, no distress and appears stated age. Derm: Skin warm and dry, normal coloration for ethnicity. Head: Atraumatic, normocephalic and symmetric. Eyes: EOM's intact, no lid lag, and anicteric sclera Mouth: no lip lesions, mucus membranes moist Cardiovascular: regular rate and rhythm with normal S1S2, no murmur, positive posterior tibial pulses bilaterally, and cap refill < 2 seconds. Lungs: Respirations even, regular, and unlabored on room air. Lungs CTA bilaterally, no rhonchi, no rales, no wheezing, and no accessory muscle usage. Abdominal: Bilateral upper quadrants of abdomen are distended patient reports upper abdomen distended at baseline. Patient with surgical incision left lower quadrant with packing in place and abdominal binder in place. Ext: ROM intact. No gross muscle atrophy, no edema, no contractures Neuro: Speech clear, face symmetrical and CN II-XII grossly intact with no noted focal neuro deficits Psych: Alert and oriented to person, place, time, and situation. Appropriate and pleasant affect. Assessment and Plan of Care: Abdominal wall abscess Sepsis on arrival, secondary to above Transaminitis -General Surgery following, took patient to OR for excision and drainage of left inguinal abscess on 12/03/2024. -Infectious disease following, discussed plan of care with Dr. Mendez. -Continue IV antibiotics with Zosyn 3.375 g every 8 hours -Continue symptomatic care and pain management. Hyperglycemia, newly diagnosed type 2 diabetes -Continue glycemic protocol with Humalog sliding scale. Globin A1c 6.6%. Patient will require diabetic supplies on discharge and plan for discharge home on metformin 500 mg twice daily. Hypertension -Monitor vital signs and continue daily medication regimen with amlodipine 5 mg daily. Data and imaging reviewed: - Morning labs reviewed. CBC showing slight improvement of leukocytosis with WBC count decreasing from initial 19.64 down to 14.64. Hemoglobin 8.2. BMP unremarkable. Blood glucose 132 this morning. Hemoglobin A1c was 6.6. Magnesium 2.1. Calcium 8.7. Liver profile unremarkable with the exception of low total protein of 5.5 and hypoalbuminemia with albumin of 2.9. - Vital signs reviewed. Blood pressure 161/91, heart rate 98, respiratory rate 16, temp 98.1 F, and SpO2 of 97% on room air. CODE STATUS: Full code DVT prophylaxis: Lovenox Anticipated discharge date: Pending clinical course Anticipated discharge place: Pending clinical course, likely home Patient was seen independently by Nurse Pracitioner. This document was prepared using [employer] dictation software. Please allow for errors in or assistant, while rare they do occur. Randal Tong NP rendered care for this patient independently, reviewed the findings and plan as documented in the note above and agree with plan. I did not physically speak with or examine the patient on this date. Objective - Vital Signs Vital signs: Vital Signs Temp 98.1 F 12/04/24 07:03 Pulse 98 12/04/24 07:03 Resp 16 12/04/24 07:03 BP 161/91 12/04/24 07:03 Pulse Ox 97 12/04/24 07:03 FiO2 Intake & Output 12/03/24 12/04/24 12/04/24 18:59 06:59 18:59 Intake Total 1000 Output Total 510 Balance 490 Weight 65.317 kg Intake: IV 1000 Output: Urine 500 Estimated Blood Loss 10 Other: Voiding Method Toilet # Voids 2 - Labs CBC & Chem 7: 12/04/24 03:09 12/04/24 03:09 Labs: Abnormal Lab Results - Last 24 Hours (Table) 12/03/24 12/03/24 12/03/24 Range/Units 13:31 20:26 22:52 WBC (4.50-10.00) X 10*3/uL RBC (4.10-5.20) X 10*6/uL Hgb (12.0-15.0) g/dL Hct (37.2-46.3) % MCH (27.0-32.0) pg MCHC (32.0-37.0) g/dL RDW (11.5-14.5) % Plt Count (140-440) X 10*3/uL MPV (9.5-12.2) FL Immature Gran # (0.00-0.04) X 10*3/uL Neutrophils # (1.80-7.70) X 10*3/uL Lymphocytes # (0.90-5.00) X 10*3/uL Eosinophils # (0.04-0.35) X 10*3/uL Glucose (74-99) mg/dL POC Glucose (mg/dL) 196 H 306 H 215 H (70-110) mg/dL Hemoglobin A1c (<=6.0) % Total Protein (6.3-8.2) g/dL Albumin (3.5-5.0) g/dL 12/04/24 12/04/24 12/04/24 Range/Units 03:09 03:09 03:09 WBC 14.64 H (4.50-10.00) X 10*3/uL RBC 3.06 L (4.10-5.20) X 10*6/uL Hgb 8.2 L (12.0-15.0) g/dL Hct 27.8 L (37.2-46.3) % MCH 26.8 L (27.0-32.0) pg MCHC 29.5 L (32.0-37.0) g/dL RDW 15.5 H (11.5-14.5) % Plt Count 536 H (140-440) X 10*3/uL MPV 9.1 L (9.5-12.2) FL Immature Gran # 0.11 H (0.00-0.04) X 10*3/uL Neutrophils # 12.86 H (1.80-7.70) X 10*3/uL Lymphocytes # 0.84 L (0.90-5.00) X 10*3/uL Eosinophils # 0 L (0.04-0.35) X 10*3/uL Glucose 132 H (74-99) mg/dL POC Glucose (mg/dL) (70-110) mg/dL Hemoglobin A1c 6.6 H (<=6.0) % Total Protein 5.5 L (6.3-8.2) g/dL Albumin 2.9 L (3.5-5.0) g/dL 12/04/24 Range/Units 05:43 WBC (4.50-10.00) X 10*3/uL RBC (4.10-5.20) X 10*6/uL Hgb (12.0-15.0) g/dL Hct (37.2-46.3) % MCH (27.0-32.0) pg MCHC (32.0-37.0) g/dL RDW (11.5-14.5) % Plt Count (140-440) X 10*3/uL MPV (9.5-12.2) FL Immature Gran # (0.00-0.04) X 10*3/uL Neutrophils # (1.80-7.70) X 10*3/uL Lymphocytes # (0.90-5.00) X 10*3/uL Eosinophils # (0.04-0.35) X 10*3/uL Glucose (74-99) mg/dL POC Glucose (mg/dL) 157 H (70-110) mg/dL Hemoglobin A1c (<=6.0) % Total Protein (6.3-8.2) g/dL Albumin (3.5-5.0) g/dL Microbiology - Last 24 Hours (Table) 12/03/24 12:55 Gram Stain - Preliminary Abdomen
[2024-12-04 20:10] LABS: Glucose,Whole Blood 104 mg/dL (70-110)
[2024-12-05 06:10] LABS: Glucose,Whole Blood 141 mg/dL (70-110)
[2024-12-05 09:42] LABS: Basophils # (A) 0.03 10*3/uL (0.00-0.10); Basophils % (A) 0.2 %; Eosinophils # (A) 0.11 10*3/uL (0.04-0.35); Eosinophils % (A) 0.9 %; HGB 8.8 g/dL (12.0-15.0); Lymphocytes # (A) 1.64 10*3/uL (0.90-5.00); Lymphocytes % (A) 12.9 %; MCH 26.6 pg (27.0-32.0); MCHC 30.3 g/dL (32.0-37.0); MCV 87.6 fL (80.0-97.0); Mean Platelet Volume 8.6 fL (9.5-12.2); Monocytes # (A) 0.78 10*3/uL (0.20-1.00); Monocytes % (A) 6.2 %; Neutrophils # (A) 9.92 10*3/uL (1.80-7.70); Neutrophils % (A) 78.3 %; Platelet Count 566 10*3/uL (140-440); RBC 3.31 10*6/uL (4.10-5.20); RDW 15.2 % (11.5-14.5); WBC 12.67 10*3/uL (4.50-10.00)
[2024-12-05 11:23] LABS: Glucose,Whole Blood 144 mg/dL (70-110)
--- NOTE | 2024-12-05 13:23 | P.PN ---
Subjective Progress Note Date: 12/05/24 SURGICAL PROGRESS NOTE CHIEF COMPLAINT: Left inguinal abscess HISTORY OF PRESENT ILLNESS: Postop day #2 status post excision and drainage of left inguinal abscess. Patient's pain is controlled. Incisional packing was changed yesterday. Patient did shower. Afebrile. WBC is down from 14.6-12.6 Hgb 8.8 PHYSICAL EXAM: VITAL SIGNS: Reviewed. GENERAL: Well-developed in no acute distress. ABDOMEN: Soft. Nondistended. Surgical dressing is pulled down. There is serosanguineous drainage noted on the dressing and packing. Packing is intact. NEUROLOGIC: Alert and oriented. Cranial nerves II through XII grossly intact. ASSESSMENT: 1. Left inguinal abscess PLAN: -Patient can be discharged from surgical standpoint when cleared by ID service -Continue local wound care -Antibiotics per ID service -manager instrumentation arranging home care -Remove packing today while in shower. Replace packing and dressing. -Continue pain management -Discontinue IV fluids Physician Alloy Weigher note has been reviewed by physician. Signing provider agrees with the documented findings, assessment, and plan of care. Objective - Vital Signs Vital signs: Vital Signs Temp 97.9 F 12/05/24 07:26 Pulse 103 H 12/05/24 07:26 Resp 16 12/05/24 07:26 BP 151/90 12/05/24 07:26 Pulse Ox 96 12/05/24 07:26 FiO2 Intake & Output 12/04/24 12/05/24 12/05/24 18:59 06:59 18:59 Intake Total 540 Balance 540 Intake: Oral 540 Other: Voiding Method Toilet # Voids 3 2 - Labs CBC & Chem 7: 12/05/24 09:10 12/04/24 03:09 Labs: Abnormal Lab Results - Last 24 Hours (Table) 12/04/24 12/05/24 12/05/24 Range/Units 16:48 06:08 09:10 WBC 12.67 H (4.50-10.00) 10*3/uL RBC 3.31 L (4.10-5.20) 10*6/uL Hgb 8.8 L (12.0-15.0) g/dL Hct 29.0 L (37.2-46.3) % MCH 26.6 L (27.0-32.0) pg MCHC 30.3 L (32.0-37.0) g/dL RDW 15.2 H (11.5-14.5) % Plt Count 566 H (140-440) 10*3/uL MPV 8.6 L (9.5-12.2) fL Immature Gran # 0.19 H (0.00-0.04) 10*3/uL Neutrophils # 9.92 H (1.80-7.70) 10*3/uL POC Glucose (mg/dL) 170 H 141 H (70-110) mg/dL 12/05/24 Range/Units 11:21 WBC (4.50-10.00) 10*3/uL RBC (4.10-5.20) 10*6/uL Hgb (12.0-15.0) g/dL Hct (37.2-46.3) % MCH (27.0-32.0) pg MCHC (32.0-37.0) g/dL RDW (11.5-14.5) % Plt Count (140-440) 10*3/uL MPV (9.5-12.2) fL Immature Gran # (0.00-0.04) 10*3/uL Neutrophils # (1.80-7.70) 10*3/uL POC Glucose (mg/dL) 144 H (70-110) mg/dL Microbiology - Last 24 Hours (Table) 12/03/24 12:55 Gram Stain - Preliminary Abdomen Wound Culture - Preliminary Gram Neg Bacilli
--- NOTE | 2024-12-05 14:19 | P.PN ---
Subjective Progress Note Date: 12/05/24 Hospital course: Patient is a pleasant 59-year-old female with a past medical history of multiple sclerosis, Sjogren's disease, CAD, fibromyalgia, abdominal hernia, and previous abdominal abscess drained 08/10. She presented to the hospital secondary to progressively worsening abdominal pain over the past 1 to 2 weeks. Upon arrival to our facility, patient underwent evaluation in the emergency department. Vital signs upon arrival show blood pressure 150/85, heart rate 114, respiratory rate 18, temp 97.8 F, and SpO2 of 98% on room air. Labs completed and reviewed. CBC showing leukocytosis with WBC count of 19.64, normocytic anemia with hemoglobin of 9.5, and thrombocytosis with platelet count of 498. BMP showing prerenal azotemia with BUN of 29 and hyperglycemia with blood glucose of 322. Initial lactic acid was 2.9. Liver profile showing transaminitis with AST of 37, ALT of 31, and alkaline phosphatase of 141. Amylase and lipase normal findings. Urinalysis positive for trace protein and glucose. CT abdomen and pelvis completed showing a new focal thin-walled fluid collection measuring 4.1 x 2.8 cm and left inguinal region larger multiloculated fluid collection measuring 7.3 x 6.0 cm. Patient started on broad-spectrum antibiotics with vancomycin and Zosyn. She was admitted under our services with consultation to general surgery and infectious disease. Patient underwent incision and drainage of left inguinal abscess on 12/03/2024 Physical exam: Patient seen and fully evaluated at bedside. She reports abdominal pain continues to improve and only reports burning at incision site.. She denies having any nausea or vomiting or any other complaints at this time. Reports feeling very eager to be discharged home at this time. Patient updated that wound culture is still pending final culture and sensitivity report. Vital signs reviewed and stable. General: Nontoxic, no distress and appears stated age. Derm: Skin warm and dry, normal coloration for ethnicity. Head: Atraumatic, normocephalic and symmetric. Eyes: EOM's intact, no lid lag, and anicteric sclera Mouth: no lip lesions, mucus membranes moist Cardiovascular: regular rate and rhythm with normal S1S2, no murmur, positive posterior tibial pulses bilaterally, and cap refill < 2 seconds. Lungs: Respirations even, regular, and unlabored on room air. Lungs CTA bilaterally, no rhonchi, no rales, no wheezing, and no accessory muscle usage. Abdominal: Bilateral upper quadrants of abdomen are distended patient reports upper abdomen distended at baseline. Patient with surgical incision left lower quadrant with packing in place and abdominal binder in place. Ext: ROM intact. No gross muscle atrophy, no edema, no contractures Neuro: Speech clear, face symmetrical and CN II-XII grossly intact with no noted focal neuro deficits Psych: Alert and oriented to person, place, time, and situation. Appropriate and pleasant affect. Assessment and Plan of Care: Abdominal wall abscess Sepsis on arrival, secondary to above Transaminitis -General Surgery following, took patient to OR for excision and drainage of left inguinal abscess on 12/03/2024. -Infectious disease following, discussed plan of care with Dr. Mendez. -Continue IV antibiotics with Zosyn 3.375 g every 8 hours -Continue symptomatic care and pain management. -Wound/abdominal wall abscess culture preliminarily positive for gram-negative bacilli. Awaiting final culture and sensitivity report. Hyperglycemia, newly diagnosed type 2 diabetes -Continue glycemic protocol with Humalog sliding scale. Globin A1c 6.6%. Patient will require diabetic supplies on discharge and plan for discharge home on metformin 500 mg twice daily. Acute on chronic anemia, suspect iron deficiency -Hemoglobin stable at 8.8. Order placed for iron profile and will start patient on ferrous sulfate 325 mg daily. Hypertension -Monitor vital signs and continue daily medication regimen with amlodipine 5 mg daily. Data and imaging reviewed: - Morning labs reviewed. CBC showing slight improvement of leukocytosis with WBC count decreasing from initial 19.64 down to 12.67. Hemoglobin 8.8. Blood glucose 144 this morning. - Vital signs reviewed. Blood pressure 151/98, heart rate 103, respiratory rate 16, temp 97.9 F, and SpO2 of 96% on room air CODE STATUS: Full code DVT prophylaxis: Lovenox Anticipated discharge date: Pending clinical course Anticipated discharge place: Home with home care Patient was seen independently by Nurse Pracitioner. This document was prepared using [employer] dictation software. Please allow for errors in funeral planning counselor, while rare they do occur. Randal Tong NP rendered care for this patient independently, reviewed the findings and plan as documented in the note above and agree with plan. I did not physically speak with or examine the patient on this date. Objective - Vital Signs Vital signs: Vital Signs Temp 97.9 F 12/05/24 07:26 Pulse 103 H 12/05/24 07:26 Resp 16 12/05/24 07:26 BP 151/90 12/05/24 07:26 Pulse Ox 96 12/05/24 07:26 FiO2 Intake & Output 12/04/24 12/05/24 12/05/24 18:59 06:59 18:59 Intake Total 540 Balance 540 Intake: Oral 540 Other: Voiding Method Toilet # Voids 3 2 - Labs CBC & Chem 7: 12/05/24 09:10 12/04/24 03:09 Labs: Abnormal Lab Results - Last 24 Hours (Table) 12/04/24 12/04/24 12/04/24 Range/Units 03:09 03:09 16:48 WBC 14.64 H (4.50-10.00) X 10*3/uL RBC 3.06 L (4.10-5.20) X 10*6/uL Hgb 8.2 L (12.0-15.0) g/dL Hct 27.8 L (37.2-46.3) % MCH 26.8 L (27.0-32.0) pg MCHC 29.5 L (32.0-37.0) g/dL RDW 15.5 H (11.5-14.5) % Plt Count 536 H (140-440) X 10*3/uL MPV 9.1 L (9.5-12.2) FL Immature Gran # 0.11 H (0.00-0.04) X 10*3/uL Neutrophils # 12.86 H (1.80-7.70) X 10*3/uL Lymphocytes # 0.84 L (0.90-5.00) X 10*3/uL Eosinophils # 0 L (0.04-0.35) X 10*3/uL POC Glucose (mg/dL) 170 H (70-110) mg/dL Hemoglobin A1c 6.6 H (<=6.0) % 12/05/24 Range/Units 06:08 WBC (4.50-10.00) X 10*3/uL RBC (4.10-5.20) X 10*6/uL Hgb (12.0-15.0) g/dL Hct (37.2-46.3) % MCH (27.0-32.0) pg MCHC (32.0-37.0) g/dL RDW (11.5-14.5) % Plt Count (140-440) X 10*3/uL MPV (9.5-12.2) FL Immature Gran # (0.00-0.04) X 10*3/uL Neutrophils # (1.80-7.70) X 10*3/uL Lymphocytes # (0.90-5.00) X 10*3/uL Eosinophils # (0.04-0.35) X 10*3/uL POC Glucose (mg/dL) 141 H (70-110) mg/dL Hemoglobin A1c (<=6.0) % Microbiology - Last 24 Hours (Table) 12/03/24 12:55 Gram Stain - Preliminary Abdomen Wound Culture - Preliminary Gram Neg Bacilli
--- NOTE | 2024-12-05 14:32 | P.PN ---
Subjective Progress Note Date: 12/04/24 Principal diagnosis: Reason for follow-up intra-abdominal abscess Patient is a 59-year-old female with a past medical history significant for coronary artery disease, tunnel syndrome Sjogren syndrome did have an episode of intra-abdominal abscess in July [address]- guided now presented back to the hospital with left groin pain and swelling has been diagnosed with the intra-abdominal abscess status post surgical drainage. On today's evaluation that is 12/04/2024, patient has been afebrile, patient is breathing comfortably and is currently on room air, patient denies having any chest pain and cough, patient denies nausea vomiting and abdominal pain has decreased in intensity. Patient white count is 14.64 creatinine 0.59 Objective - Vital Signs Vital signs: Vital Signs Temp 98.1 F 12/04/24 07:03 Pulse 98 12/04/24 07:03 Resp 16 12/04/24 07:03 BP 161/91 12/04/24 07:03 Pulse Ox 97 12/04/24 07:03 FiO2 Intake & Output 12/03/24 12/04/24 12/04/24 18:59 06:59 18:59 Intake Total 1000 Output Total 510 Balance 490 Weight 65.317 kg Intake: IV 1000 Output: Urine 500 Estimated Blood Loss 10 Other: Voiding Method Toilet # Voids 2 - Exam GENERAL DESCRIPTION: Middle-age female lying in bed in no distress RESPIRATORY SYSTEM: Unlabored breathing , decreased breath sounds at bases HEART: S1 S2 regular rate and rhythm , ABDOMEN: Soft , no tenderness EXTREMITIES: No edema feet - Labs CBC & Chem 7: 12/05/24 09:10 12/04/24 03:09 Labs: Abnormal Lab Results - Last 24 Hours (Table) 12/03/24 12/03/24 12/03/24 Range/Units 13:31 20:26 22:52 WBC (4.50-10.00) X 10*3/uL RBC (4.10-5.20) X 10*6/uL Hgb (12.0-15.0) g/dL Hct (37.2-46.3) % MCH (27.0-32.0) pg MCHC (32.0-37.0) g/dL RDW (11.5-14.5) % Plt Count (140-440) X 10*3/uL MPV (9.5-12.2) FL Immature Gran # (0.00-0.04) X 10*3/uL Neutrophils # (1.80-7.70) X 10*3/uL Lymphocytes # (0.90-5.00) X 10*3/uL Eosinophils # (0.04-0.35) X 10*3/uL Glucose (74-99) mg/dL POC Glucose (mg/dL) 196 H 306 H 215 H (70-110) mg/dL Hemoglobin A1c (<=6.0) % Total Protein (6.3-8.2) g/dL Albumin (3.5-5.0) g/dL 12/04/24 12/04/24 12/04/24 Range/Units 03:09 03:09 03:09 WBC 14.64 H (4.50-10.00) X 10*3/uL RBC 3.06 L (4.10-5.20) X 10*6/uL Hgb 8.2 L (12.0-15.0) g/dL Hct 27.8 L (37.2-46.3) % MCH 26.8 L (27.0-32.0) pg MCHC 29.5 L (32.0-37.0) g/dL RDW 15.5 H (11.5-14.5) % Plt Count 536 H (140-440) X 10*3/uL MPV 9.1 L (9.5-12.2) FL Immature Gran # 0.11 H (0.00-0.04) X 10*3/uL Neutrophils # 12.86 H (1.80-7.70) X 10*3/uL Lymphocytes # 0.84 L (0.90-5.00) X 10*3/uL Eosinophils # 0 L (0.04-0.35) X 10*3/uL Glucose 132 H (74-99) mg/dL POC Glucose (mg/dL) (70-110) mg/dL Hemoglobin A1c 6.6 H (<=6.0) % Total Protein 5.5 L (6.3-8.2) g/dL Albumin 2.9 L (3.5-5.0) g/dL 12/04/24 Range/Units 05:43 WBC (4.50-10.00) X 10*3/uL RBC (4.10-5.20) X 10*6/uL Hgb (12.0-15.0) g/dL Hct (37.2-46.3) % MCH (27.0-32.0) pg MCHC (32.0-37.0) g/dL RDW (11.5-14.5) % Plt Count (140-440) X 10*3/uL MPV (9.5-12.2) FL Immature Gran # (0.00-0.04) X 10*3/uL Neutrophils # (1.80-7.70) X 10*3/uL Lymphocytes # (0.90-5.00) X 10*3/uL Eosinophils # (0.04-0.35) X 10*3/uL Glucose (74-99) mg/dL POC Glucose (mg/dL) 157 H (70-110) mg/dL Hemoglobin A1c (<=6.0) % Total Protein (6.3-8.2) g/dL Albumin (3.5-5.0) g/dL Microbiology - Last 24 Hours (Table) 12/03/24 12:55 Gram Stain - Preliminary Abdomen Assessment and Plan (1) Abdominal abscess Current Visit: Yes Status: Acute Code(s): RZA2500 - SNOMED Code(s): 55932134 (2) Sepsis Current Visit: No Status: Acute Code(s): A41.9 - SEPSIS, UNSPECIFIED ORGANISM SNOMED Code(s): 70891934 Plan: 1patient presented to the hospital with sepsis in this patient who did have a low-grade fever tachycardia elevated white count meeting criteria for SIRS/sepsis source is left lower quadrant abscess possibly diverticular abscess in this patient who did have a previous history of intra-abdominal abscess which was a mix of anaerobic anaerobes likely perforated diverticulitis and secondary abscess 2patient is status post surgical drainage of this abscess and fluid has been sent for culture both aerobic and anaerobic 3patient will be treated with Zosyn while waiting for the culture to finalize Dictation was produced using [employer] dictation software. please excuse any grammatical, word or spelling errors. Time with Patient: Less than 30
--- NOTE | 2024-12-05 14:33 | P.PN ---
Subjective Progress Note Date: 12/05/24 Principal diagnosis: Reason for follow-up intra-abdominal abscess Patient is a 59-year-old female with a past medical history significant for coronary artery disease, tunnel syndrome Sjogren syndrome did have an episode of intra-abdominal abscess in July [address]- guided now presented back to the hospital with left groin pain and swelling has been diagnosed with the intra-abdominal abscess status post surgical drainage. On today's evaluation that is 12/05/2024, Patient is afebrile this morning patient denies having any chest pain shortness of breath or cough, the patient is currently on room air, patient mention improvement had abdominal pain no nausea vomiting no diarrhea has been insisting on going home. Patient white count is 12.6 and abdominal culture currently growing gram- negative bacilli with ID sensitivities pending Objective - Vital Signs Vital signs: Vital Signs Temp 98.4 F 12/05/24 14:00 Pulse 99 12/05/24 14:00 Resp 16 12/05/24 14:00 BP 143/91 12/05/24 14:00 Pulse Ox 100 12/05/24 14:00 FiO2 Intake & Output 12/04/24 12/05/24 12/05/24 18:59 06:59 18:59 Intake Total 540 Balance 540 Intake: Oral 540 Other: Voiding Method Toilet # Voids 3 2 - Exam GENERAL DESCRIPTION: Middle-age female lying in bed in no distress RESPIRATORY SYSTEM: Unlabored breathing , decreased breath sounds at bases HEART: S1 S2 regular rate and rhythm , ABDOMEN: Soft , no tenderness EXTREMITIES: No edema feet - Labs CBC & Chem 7: 12/05/24 09:10 12/04/24 03:09 Labs: Abnormal Lab Results - Last 24 Hours (Table) 12/04/24 12/05/24 12/05/24 Range/Units 16:48 06:08 09:10 WBC 12.67 H (4.50-10.00) 10*3/uL RBC 3.31 L (4.10-5.20) 10*6/uL Hgb 8.8 L (12.0-15.0) g/dL Hct 29.0 L (37.2-46.3) % MCH 26.6 L (27.0-32.0) pg MCHC 30.3 L (32.0-37.0) g/dL RDW 15.2 H (11.5-14.5) % Plt Count 566 H (140-440) 10*3/uL MPV 8.6 L (9.5-12.2) fL Immature Gran # 0.19 H (0.00-0.04) 10*3/uL Neutrophils # 9.92 H (1.80-7.70) 10*3/uL POC Glucose (mg/dL) 170 H 141 H (70-110) mg/dL 12/05/24 Range/Units 11:21 WBC (4.50-10.00) 10*3/uL RBC (4.10-5.20) 10*6/uL Hgb (12.0-15.0) g/dL Hct (37.2-46.3) % MCH (27.0-32.0) pg MCHC (32.0-37.0) g/dL RDW (11.5-14.5) % Plt Count (140-440) 10*3/uL MPV (9.5-12.2) fL Immature Gran # (0.00-0.04) 10*3/uL Neutrophils # (1.80-7.70) 10*3/uL POC Glucose (mg/dL) 144 H (70-110) mg/dL Microbiology - Last 24 Hours (Table) 12/03/24 12:55 Gram Stain - Preliminary Abdomen Wound Culture - Preliminary Gram Neg Bacilli Assessment and Plan (1) Abdominal abscess Current Visit: Yes Status: Acute Code(s): XUL2648 - SNOMED Code(s): 60058999 (2) Sepsis Current Visit: No Status: Acute Code(s): A41.9 - SEPSIS, UNSPECIFIED ORGANISM SNOMED Code(s): 29822771 Plan: 1patient presented to the hospital with sepsis in this patient who did have a low-grade fever tachycardia elevated white count meeting criteria for SIR S/sepsis source is left lower quadrant abscess possibly diverticular abscess in this patient who did have a previous history of intra-abdominal abscess which was a mix of anaerobic anaerobes likely perforated diverticulitis and secondary abscess 2patient is status post surgical drainage of this abscess and fluid has been sent for culture both aerobic and anaerobic which are currently growing gram- negative 3patient has been insisted on going home advised to wait till sensitivities are finalized she will likely need IV antibiotics on discharge for which a midline will be placed continue with Ortiz Dictation was produced using [employer] dictation software. please excuse any grammatical, word or spelling errors. Time with Patient: Less than 30
[2024-12-05] MEDS: FERROUS SULFATE 325 MG TAB PO SCH (16:06)
[2024-12-05 16:24] LABS: Glucose,Whole Blood 166 mg/dL (70-110)
[2024-12-05 20:50] LABS: Glucose,Whole Blood 142 mg/dL (70-110)
[2024-12-05 22:18] LABS: % Iron Saturation 4.53 (12.00-45.00)
[2024-12-06 05:54] LABS: Glucose,Whole Blood 140 mg/dL (70-110)
[2024-12-06 08:13] LABS: HCT 32.1 % (37.2-46.3); HGB 9.5 g/dL (12.0-15.0); MCH 26.5 pg (27.0-32.0); MCHC 29.6 g/dL (32.0-37.0); MCV 89.4 FL (80.0-97.0); Mean Platelet Volume 8.8 FL (9.5-12.2); NRBC Per 100 WBC 0 X 10*3/uL (0.00-0.01); Platelet Count 636 X 10*3/uL (140-440); RBC 3.59 X 10*6/uL (4.10-5.20); RDW 15.6 % (11.5-14.5)
[2024-12-06 08:30] LABS: BUN/Creat Ratio 15.86 Ratio (12.00-20.00); Blood Urea Nitrogen 11.1 mg/dL (9.0-27.0); Calcium 9.4 mg/dL (8.7-10.3); Carbon Dioxide 25.6 mmol/L (21.6-31.8); Chloride 98 mmol/L (96-109); Glucose 113 mg/dL (70-110); Potassium 4.5 mmol/L (3.5-5.5); Sodium 137 mmol/L (135-145)
--- NOTE | 2024-12-06 11:10 | P.PN ---
Subjective Progress Note Date: 12/06/24 SURGICAL PROGRESS NOTE CHIEF COMPLAINT: Left inguinal abscess HISTORY OF PRESENT ILLNESS: Postop day #3 status post excision and drainage of left inguinal abscess. Patient's pain is controlled. Incisional packing was changed yesterday. Afebrile. WBC is up from 12.6-14. She is tachycardic. Patient seen and examined with Dr. Cook PHYSICAL EXAM: VITAL SIGNS: Reviewed. GENERAL: Well-developed in no acute distress. ABDOMEN: Soft. Nondistended. Packing is intact. NEUROLOGIC: Alert and oriented. Cranial nerves II through XII grossly intact. ASSESSMENT: 1. Left inguinal abscess PLAN: -Recommend to continue to monitor patient in the hospital due to increase in white count and tachycardia -Antibiotics per ID service -Change packing to Aquacel silver -Repeat CBC in a.m. -Continue pain management -Recommend EGD and colonoscopy outpatient Physician Instructional Aide note has been reviewed by physician. Signing provider agrees with the documented findings, assessment, and plan of care. Objective - Vital Signs Vital signs: Vital Signs Temp 98 F 12/06/24 06:58 Pulse 116 H 12/06/24 06:58 Resp 18 12/06/24 06:58 BP 151/88 12/06/24 06:58 Pulse Ox 98 12/06/24 06:58 FiO2 Intake & Output 12/05/24 12/06/24 12/06/24 18:59 06:59 18:59 Other: Voiding Method Toilet # Voids 4 2 # Bowel Movements 1 - Labs CBC & Chem 7: 12/06/24 03:32 12/06/24 03:32 Labs: Abnormal Lab Results - Last 24 Hours (Table) 12/05/24 12/05/24 12/05/24 Range/Units 09:10 11:21 16:23 WBC (4.50-10.00) X 10*3/uL RBC (4.10-5.20) X 10*6/uL Hgb (12.0-15.0) g/dL Hct (37.2-46.3) % MCH (27.0-32.0) pg MCHC (32.0-37.0) g/dL RDW (11.5-14.5) % Plt Count (140-440) X 10*3/uL MPV (9.5-12.2) FL Anion Gap (4.00-12.00) mmol/L Glucose (70-110) mg/dL POC Glucose (mg/dL) 144 H 166 H (70-110) mg/dL Iron 16 L (50-170) UG/DL % Saturation 4.53 L (12.00-45.00) 12/05/24 12/06/24 12/06/24 Range/Units 20:47 03:32 03:32 WBC 14.00 H (4.50-10.00) X 10*3/uL RBC 3.59 L (4.10-5.20) X 10*6/uL Hgb 9.5 L (12.0-15.0) g/dL Hct 32.1 L (37.2-46.3) % MCH 26.5 L (27.0-32.0) pg MCHC 29.6 L (32.0-37.0) g/dL RDW 15.6 H (11.5-14.5) % Plt Count 636 H (140-440) X 10*3/uL MPV 8.8 L (9.5-12.2) FL Anion Gap 13.40 H (4.00-12.00) mmol/L Glucose 113 H (70-110) mg/dL POC Glucose (mg/dL) 142 H (70-110) mg/dL Iron (50-170) UG/DL % Saturation (12.00-45.00) 12/06/24 Range/Units 05:51 WBC (4.50-10.00) X 10*3/uL RBC (4.10-5.20) X 10*6/uL Hgb (12.0-15.0) g/dL Hct (37.2-46.3) % MCH (27.0-32.0) pg MCHC (32.0-37.0) g/dL RDW (11.5-14.5) % Plt Count (140-440) X 10*3/uL MPV (9.5-12.2) FL Anion Gap (4.00-12.00) mmol/L Glucose (70-110) mg/dL POC Glucose (mg/dL) 140 H (70-110) mg/dL Iron (50-170) UG/DL % Saturation (12.00-45.00) Microbiology - Last 24 Hours (Table) 12/03/24 12:55 Anaerobic Culture - Preliminary Abdomen 12/03/24 12:55 Gram Stain - Preliminary Abdomen Wound Culture - Preliminary Escherichia coli Proteus mirabilis
[2024-12-06 11:52] LABS: Glucose,Whole Blood 146 mg/dL (70-110)
[2024-12-06 13:57] VITALS: BMI 28.1
--- NOTE | 2024-12-06 14:50 | P.PN ---
Subjective Progress Note Date: 12/06/24 Principal diagnosis: Reason for follow-up intra-abdominal abscess Patient is a 59-year-old female with a past medical history significant for coronary artery disease, tunnel syndrome Sjogren syndrome did have an episode of intra-abdominal abscess in July [address]- guided now presented back to the hospital with left groin pain and swelling has been diagnosed with the intra-abdominal abscess status post surgical drainage. On today's evaluation that is 12/06/2024,the patient denies any fever or any chills, patient is breathing comfortably on room air, the patient denies chest pain shortness of breath and no significant cough, patient did have some lower abdominal discomfort no nausea vomiting or diarrhea. Patient white count slightly up to 14,000 creatinine 0.7 abdominal culture with E. coli sensitive pathogen sensitivity in the Proteus is currently pending Objective - Vital Signs Vital signs: Vital Signs Temp 98 F 12/06/24 06:58 Pulse 116 H 12/06/24 06:58 Resp 18 12/06/24 06:58 BP 151/88 12/06/24 06:58 Pulse Ox 98 12/06/24 06:58 FiO2 Intake & Output 12/05/24 12/06/24 12/06/24 18:59 06:59 18:59 Other: Voiding Method Toilet # Voids 4 2 # Bowel Movements 1 - Exam GENERAL DESCRIPTION: Middle-age female lying in bed in no distress RESPIRATORY SYSTEM: Unlabored breathing , decreased breath sounds at bases HEART: S1 S2 regular rate and rhythm , ABDOMEN: Soft , no tenderness EXTREMITIES: No edema feet - Labs CBC & Chem 7: 12/06/24 03:32 12/06/24 03:32 Labs: Abnormal Lab Results - Last 24 Hours (Table) 12/05/24 12/05/24 12/05/24 Range/Units 09:10 16:23 20:47 WBC (4.50-10.00) X 10*3/uL RBC (4.10-5.20) X 10*6/uL Hgb (12.0-15.0) g/dL Hct (37.2-46.3) % MCH (27.0-32.0) pg MCHC (32.0-37.0) g/dL RDW (11.5-14.5) % Plt Count (140-440) X 10*3/uL MPV (9.5-12.2) FL Anion Gap (4.00-12.00) mmol/L Glucose (70-110) mg/dL POC Glucose (mg/dL) 166 H 142 H (70-110) mg/dL Iron 16 L (50-170) UG/DL % Saturation 4.53 L (12.00-45.00) 12/06/24 12/06/24 12/06/24 Range/Units 03:32 03:32 05:51 WBC 14.00 H (4.50-10.00) X 10*3/uL RBC 3.59 L (4.10-5.20) X 10*6/uL Hgb 9.5 L (12.0-15.0) g/dL Hct 32.1 L (37.2-46.3) % MCH 26.5 L (27.0-32.0) pg MCHC 29.6 L (32.0-37.0) g/dL RDW 15.6 H (11.5-14.5) % Plt Count 636 H (140-440) X 10*3/uL MPV 8.8 L (9.5-12.2) FL Anion Gap 13.40 H (4.00-12.00) mmol/L Glucose 113 H (70-110) mg/dL POC Glucose (mg/dL) 140 H (70-110) mg/dL Iron (50-170) UG/DL % Saturation (12.00-45.00) Microbiology - Last 24 Hours (Table) 12/03/24 12:55 Anaerobic Culture - Preliminary Abdomen 12/03/24 12:55 Gram Stain - Preliminary Abdomen Wound Culture - Preliminary Escherichia coli Proteus mirabilis Assessment and Plan (1) Abdominal abscess Current Visit: Yes Status: Acute Code(s): [id number] - SNOMED Code(s): 46568906 (2) Sepsis Current Visit: No Status: Acute Code(s): A41.9 - SEPSIS, UNSPECIFIED ORGAN ISM SNOMED Code(s): 78495953 Plan: 1patient presented to the hospital with sepsis in this patient who did have a low-grade fever tachycardia elevated white count meeting criteria for SIRS/sepsis source is left lower quadrant abscess possibly diverticular abscess in this patient who did have a previous history of intra-abdominal abscess which was a mix of anaerobic anaerobes likely perforated diverticulitis and secondary abscess 2patient is status post surgical drainage of this abscess and fluid has been sent for culture both aerobic and anaerobic which are currently growing E. coli sensitive pathogen sensitivity on the Proteus is still pending 3patient white count slightly up today patient has been put on hold if any further worsening of the white count may benefit from a repeat CT for now continue with Zosyn Dictation was produced using [employer] dictation software. please excuse any grammatical, word or spelling errors. Time with Patient: Less than 30
--- NOTE | 2024-12-06 14:54 | P.PN ---
Subjective Progress Note Date: 12/06/24 Hospital course: Patient is a pleasant 59-year-old female with a past medical history of multiple sclerosis, Sjogren's disease, CAD, fibromyalgia, abdominal hernia, and previous abdominal abscess drained 08/10. She presented to the hospital secondary to progressively worsening abdominal pain over the past 1 to 2 weeks. Upon arrival to our facility, patient underwent evaluation in the emergency department. Vital signs upon arrival show blood pressure 150/85, heart rate 114, respiratory rate 18, temp 97.8 F, and SpO2 of 98% on room air. Labs completed and reviewed. CBC showing leukocytosis with WBC count of 19.64, normocytic anemia with hemoglobin of 9.5, and thrombocytosis with platelet count of 498. BMP showing prerenal azotemia with BUN of 29 and hyperglycemia with blood glucose of 322. Initial lactic acid was 2.9. Liver profile showing transaminitis with AST of 37, ALT of 31, and alkaline phosphatase of 141. Amylase and lipase normal findings. Urinalysis positive for trace protein and glucose. CT abdomen and pelvis completed showing a new focal thin-walled fluid collection measuring 4.1 x 2.8 cm and left inguinal region larger multiloculated fluid collection measuring 7.3 x 6.0 cm. Patient started on broad-spectrum antibiotics with vancomycin and Zosyn. She was admitted under our services with consultation to general surgery and infectious disease. Patient underwent incision and drainage of left inguinal abscess on 12/03/2024 Physical exam: Patient seen and fully evaluated at bedside. She reports abdominal pain is currently controlled and patient is very adamant on discharge. Patient was updated that we are still waiting sensitivity report back and organism on blood culture results. Vital signs reviewed and stable. General: Nontoxic, no distress and appears stated age. Derm: Skin warm and dry, normal coloration for ethnicity. Head: Atraumatic, normocephalic and symmetric. Eyes: EOM's intact, no lid lag, and anicteric sclera Mouth: no lip lesions, mucus membranes moist Cardiovascular: regular rate and rhythm with normal S1S2, no murmur, positive posterior tibial pulses bilaterally, and cap refill < 2 seconds. Lungs: Respirations even, regular, and unlabored on room air. Lungs CTA bilater ally, no rhonchi, no rales, no wheezing, and no accessory muscle usage. Abdominal: Abdominal binder in place. Nontender to palpation. Ext: ROM intact. No gross muscle atrophy, no edema, no contractures Neuro: Speech clear, face symmetrical and CN II-XII grossly intact with no noted focal neuro deficits Psych: Alert and oriented to person, place, time, and situation. Appropriate and pleasant affect. Assessment and Plan of Care: Abdominal wall abscess Sepsis on arrival, secondary to above Transaminitis -General Surgery following, took patient to OR for excision and drainage of left inguinal abscess on 12/03/2024. -Infectious disease following, discussed plan of care with Dr. Mendez. -Continue IV antibiotics with Zosyn 3.375 g every 8 hours -Continue symptomatic care and pain management. -Wound/abdominal wall abscess culture preliminarily positive for E. coli and Proteus mirabillis. E. coli showing no resistance awaiting sensitivity report for Proteus mirabillis. Hyperglycemia, newly diagnosed type 2 diabetes -Continue glycemic protocol with Humalog sliding scale. Globin A1c 6.6%. Patient will require diabetic supplies on discharge and plan for discharge home on metformin 500 mg twice daily. Acute on chronic anemia, suspect iron deficiency -Hemoglobin stable at 8.8. Order placed for iron profile and will start patient on ferrous sulfate 325 mg daily. Hypertension -Monitor vital signs and continue daily medication regimen with amlodipine 5 mg daily. Data and imaging reviewed: - Morning labs reviewed. CBC showing leukocytosis with WBC count of 14.00, hemoglobin of 9.5, and thrombocytosis with platelet count of 636. BMP showing high anion gap of 13.40 otherwise normal findings. Blood glucose was 113. Magnesium 2.0. - Vital signs reviewed. Blood pressure 151/88, heart rate 116, respiratory rate 18, temp 98.0 F, and SpO2 of 98% on room air. - Wound/abdominal wall abscess culture preliminarily positive for E. coli and Proteus mirabillis. E. coli showing no resistance awaiting sensitivity report for Proteus mirabillis. CODE STATUS: Full code DVT prophylaxis: Lovenox Anticipated discharge date: Likely within the next [address]: Home with home care Patient was seen independently by Nurse Pracitioner. This document was prepared using [employer] dictation software. Please allow for errors in butt presser, while rare they do occur. Randal Tong NP rendered care for this patient independently, reviewed the findings and plan as documented in the note above and agree with plan. I did not physically speak with or examine the patient on this date. Objective - Vital Signs Vital signs: Vital Signs Temp 98.5 F 12/06/24 00:18 Pulse 117 H 12/06/24 00:18 Resp 19 12/06/24 00:18 BP 145/79 12/06/24 00:18 Pulse Ox 94 L 12/06/24 00:18 FiO2 Intake & Output 12/05/24 12/06/24 12/06/24 18:59 06:59 18:59 Other: Voiding Method Toilet # Voids 4 2 # Bowel Movements 1 - Labs CBC & Chem 7: 12/06/24 03:32 12/06/24 03:32 Labs: Abnormal Lab Results - Last 24 Hours (Table) 12/05/24 12/05/24 12/05/24 Range/Units 09:10 09:10 11:21 WBC 12.67 H (4.50-10.00) 10*3/uL RBC 3.31 L (4.10-5.20) 10*6/uL Hgb 8.8 L (12.0-15.0) g/dL Hct 29.0 L (37.2-46.3) % MCH 26.6 L (27.0-32.0) pg MCHC 30.3 L (32.0-37.0) g/dL RDW 15.2 H (11.5-14.5) % Plt Count 566 H (140-440) 10*3/uL MPV 8.6 L (9.5-12.2) fL Immature Gran # 0.19 H (0.00-0.04) 10*3/uL Neutrophils # 9.92 H (1.80-7.70) 10*3/uL Anion Gap (4.00-12.00) mmol/L Glucose (70-110) mg/dL POC Glucose (mg/dL) 144 H (70-110) mg/dL Iron 16 L (50-170) UG/DL % Saturation 4.53 L (12.00-45.00) 12/05/24 12/05/24 12/06/24 Range/Units 16:23 20:47 03:32 WBC 14.00 H (4.50-10.00) 10*3/uL RBC 3.59 L (4.10-5.20) 10*6/uL Hgb 9.5 L (12.0-15.0) g/dL Hct 32.1 L (37.2-46.3) % MCH 26.5 L (27.0-32.0) pg MCHC 29.6 L (32.0-37.0) g/dL RDW 15.6 H (11.5-14.5) % Plt Count 636 H (140-440) 10*3/uL MPV 8.8 L (9.5-12.2) fL Immature Gran # (0.00-0.04) 10*3/uL Neutrophils # (1.80-7.70) 10*3/uL Anion Gap (4.00-12.00) mmol/L Glucose (70-110) mg/dL POC Glucose (mg/dL) 166 H 142 H (70-110) mg/dL Iron (50-170) UG/DL % Saturation (12.00-45.00) 12/06/24 12/06/24 Range/Units 03:32 05:51 WBC (4.50-10.00) 10*3/uL RBC (4.10-5.20) 10*6/uL Hgb (12.0-15.0) g/dL Hct (37.2-46.3) % MCH (27.0-32.0) pg MCHC (32.0-37.0) g/dL RDW (11.5-14.5) % Plt Count (140-440) 10*3/uL MPV (9.5-12.2) fL Immature Gran # (0.00-0.04) 10*3/uL Neutrophils # (1.80-7.70) 10*3/uL Anion Gap 13.40 H (4.00-12.00) mmol/L Glucose 113 H (70-110) mg/dL POC Glucose (mg/dL) 140 H (70-110) mg/dL Iron (50-170) UG/DL % Saturation (12.00-45.00) Microbiology - Last 24 Hours (Table) 12/03/24 12:55 Anaerobic Culture - Preliminary Abdomen 12/03/24 12:55 Gram Stain - Preliminary Abdomen Wound Culture - Preliminary Escherichia coli Proteus mirabilis
[2024-12-06 16:31] LABS: Glucose,Whole Blood 177 mg/dL (70-110)
[2024-12-06 20:20] LABS: Glucose,Whole Blood 141 mg/dL (70-110)
[2024-12-07] MEDS: ACETAMINOPHEN TAB 325 MG TAB PO PRN (03:59)
[2024-12-07 05:16] LABS: Basophils # (A) 0.05 10*3/uL (0.00-0.10); Basophils % (A) 0.3 %; Eosinophils # (A) 0.03 10*3/uL (0.04-0.35); Eosinophils % (A) 0.2 %; HCT 32.7 % (37.2-46.3); HGB 9.9 g/dL (12.0-15.0); Lymphocytes # (A) 1.59 10*3/uL (0.90-5.00); Lymphocytes % (A) 10.8 %; MCH 26.3 pg (27.0-32.0); MCHC 30.3 g/dL (32.0-37.0); MCV 86.7 fL (80.0-97.0); Mean Platelet Volume 8.8 fL (9.5-12.2); Monocytes # (A) 0.92 10*3/uL (0.20-1.00); Monocytes % (A) 6.2 %; Neutrophils % (A) 80.5 %; Platelet Count 679 10*3/uL (140-440); RBC 3.77 10*6/uL (4.10-5.20); RDW 15.4 % (11.5-14.5); WBC 14.79 10*3/uL (4.50-10.00)
[2024-12-07 06:18] LABS: Glucose,Whole Blood 161 mg/dL (70-110)
--- NOTE | 2024-12-07 09:11 | P.DS ---
Providers Date of admission: 12/02/24 18:33 Expected date of discharge: 12/07/24 Attending physician: Stephen Ramirez MD Consults: 12/02/24 18:32 Consult Physician Routine Consulting Provider: Eddie Cook Consult Reason/Comments: abscess Do you want consulting provider notified?: Yes Consult Physician Routine Consulting Provider: Tye Mendez Consult Reason/Comments: sepsis Do you want consulting provider notified?: Yes Primary care physician: Stated None Hospital Course: Discharge Diagnosis: Abdominal wall abscess. General Surgery evaluated and took patient to OR for excision and drainage of left inguinal abscess on 12/03/2024. Wound/abdominal wall abscess culture preliminarily positive for E. coli, Proteus mirabillis, and Klebsiella pneumoniae with resistance noted to ampicillin, minocycline, and tetracycline. Patient was evaluated by infectious disease and a midline was placed. Infectious disease physician clearing patient for home antibiotics with Zosyn and arrangements have been made with [facility] home infusion services. Patient is medically optimized for discharge at this time and is discharged home with [facility] infusion center and [facility] visiting nurses. Sepsis on arrival, secondary to above Transaminitis, suspect reactive secondary to above and resolved. Hyperglycemia, newly diagnosed type 2 diabetes. Hemoglobin A1c 6.6%. Patient provided with glucometer and discharged home on metformin 500 mg twice daily. Patient encouraged to follow heart healthy and carb consistent diet. Acute on chronic anemia, iron deficiency. Started on ferrous sulfate 325 mg daily. Hemoglobin stable on discharge at 9.5. Hypertension. Monitor vital signs and continue daily medication regimen with amlodipine 5 mg daily. Hospital Course: Patient is a pleasant 59-year-old female with a past medical history of multiple sclerosis, Sjogren's disease, CAD, fibromyalgia, abdominal hernia, and previous abdominal abscess drained 08/10. She presented to the hospital secondary to progressively worsening abdominal pain over the past 1 to 2 weeks. Upon arrival to our facility, patient underwent evaluation in the emergency department. Vital signs upon arrival show blood pressure 150/85, heart rate 114, respiratory rate 18, temp 97.8 F, and SpO2 of 98% on room air. Labs completed and review ed. CBC showing leukocytosis with WBC count of 19.64, normocytic anemia with hemoglobin of 9.5, and thrombocytosis with platelet count of 498. BMP showing prerenal azotemia with BUN of 29 and hyperglycemia with blood glucose of 322. Initial lactic acid was 2.9. Liver profile showing transaminitis with AST of 37, ALT of 31, and alkaline phosphatase of 141. Amylase and lipase normal findings. Urinalysis positive for trace protein and glucose. CT abdomen and pelvis completed showing a new focal thin-walled fluid collection measuring 4.1 x 2.8 cm and left inguinal region larger multiloculated fluid collection measuring 7.3 x 6.0 cm. Patient started on broad-spectrum antibiotics with vancomycin and Zosyn. She was admitted under our services with consultation to general surgery and infectious disease. Patient underwent incision and drainage of left inguinal abscess on 12/03/2024. Wound/abdominal wall abscess culture preliminarily positive for E. coli, Proteus mirabillis, and Klebsiella pneumoniae with resistance noted to ampicillin, minocycline, and tetracycline. Patient was evaluated by infectious disease and a midline was placed. Infectious disease physician clearing patient for home antibiotics with Zosyn and arrangements have been made with [facility] home infusion services. Patient is medically optimized for discharge at this time and is discharged home with [facility] home infusion center and [facility] visiting nurses. Physical exam: Vital signs reviewed and stable. General: Nontoxic, no distress and appears stated age. Derm: Skin warm and dry, normal coloration for ethnicity. Head: Atraumatic, normocephalic and symmetric. Eyes: EOM's intact, no lid lag, and anicteric sclera Mouth: no lip lesions, mucus membranes moist Cardiovascular: regular rate and rhythm with normal S1S2, no murmur, positive posterior tibial pulses bilaterally, and cap refill < 2 seconds. Lungs: Respirations even, regular, and unlabored on room air. Lungs CTA b ilaterally, no rhonchi, no rales, no wheezing, and no accessory muscle usage. Abdominal: Abdominal binder in place. Nontender to palpation. Ext: ROM intact. No gross muscle atrophy, no edema, no contractures Neuro: Speech clear, face symmetrical and CN II-XII grossly intact with no noted focal neuro deficits Psych: Alert and oriented to person, place, time, and situation. Appropriate and pleasant affect. A total of 31 minutes of time were spent preparing this complex discharge summary. Pt was discharged on 12/07/2024 at 9:10 AM Patient was seen independently by Nurse Practitioner. This document was prepared using [employer] dictation software. Please allow for errors in chairman and ceo while rare they do occur. Randal Tong NP rendered care for this patient independently, reviewed the fin dings and plan as documented in the note above. I did not physically speak with or examine the patient on this date. Patient Condition at Discharge: Stable Plan - Discharge Summary New Discharge Prescriptions: New metFORMIN HCL [Glucophage] 500 mg PO BID 30 Days #60 tab Ferrous Sulfate [Iron (65 MG Elemental)] 325 mg PO W/LUNCH 30 Days #30 tab HYDROcodone/APAP 5-325MG [Holden 5-325] 1 tab PO Q6HR PRN 3 Days #12 tab PRN Reason: Pain Continue rOPINIRole HCL [Requip] 10 mg PO HS Dextroamphetamine Sulfate [Dexedrine] 15 mg PO BID Cetirizine HCl 10 mg PO HS Melatonin 20 mg PO HS Cyclobenzaprine [Flexeril] 10 mg PO TID PRN PRN Reason: Pain Prebiotic/Probiotic 1 cap PO DAILY amLODIPine [Norvasc] 5 mg PO DAILY #30 tab ondansetron HCL [Zofran] 8 mg PO BID Potassium Chloride ER [K-Dur 20] 20 meq PO DAILY PRN PRN Reason: low potassium Zolpidem [Ambien] 10 mg PO HS PRN PRN Reason: Insomnia Diclofenac Sodium Gel [Voltaren 1% Gel] 2 gm TOPICAL BID PRN PRN Reason: Pain traZODone HCL [Desyrel] 100 mg PO HS Pantoprazole Sodium [Protonix] 40 mg PO BID predniSONE 20 mg PO DAILY Ascorbic Acid [Vitamin C] 1,000 mg PO DAILY Multivitamins, Thera [Multivitamin (formulary)] 1 tab PO DAILY Discharge Medication List rOPINIRole HCL [Requip] 10 mg PO HS 09/27/17 [History] Dextroamphetamine Sulfate [Dexedrine] 15 mg PO BID 12/20/18 [History] Cetirizine HCl 10 mg PO HS 03/23/21 [History] Diclofenac Sodium Gel [Voltaren 1% Gel] 2 gm TOPICAL BID PRN 03/23/21 [History] Zolpidem [Ambien] 10 mg PO HS PRN 03/23/21 [History] traZODone HCL [Desyrel] 100 mg PO HS 11/17/21 [History] Pantoprazole Sodium [Protonix] 40 mg PO BID 09/02/22 [History] predniSONE 20 mg PO DAILY 09/02/22 [History] Ascorbic Acid [Vitamin C] 1,000 mg PO DAILY 08/12/24 [History] Cyclobenzaprine [Flexeril] 10 mg PO TID PRN 08/12/24 [History] Melatonin 20 mg PO HS 08/12/24 [History] Prebiotic/Probiotic 1 cap PO DAILY 08/12/24 [History] amLODIPine [Norvasc] 5 mg PO DAILY #30 tab 08/19/24 [Rx] Multivitamins, Thera [Multivitamin (formulary)] 1 tab PO DAILY 12/02/24 [History] Potassium Chloride ER [K-Dur 20] 20 meq PO DAILY PRN 12/02/24 [History] ondansetron HCL [Zofran] 8 mg PO BID 12/02/24 [History] metFORMIN HCL [Glucophage] 500 mg PO BID 30 Days #60 tab 12/04/24 [Rx] HYDROcodone/APAP 5-325MG [Holden 5-325] 1 tab PO Q6HR PRN 3 Days #12 tab 12/05/24 [Rx] Ferrous Sulfate [Iron (65 MG Elemental)] 325 mg PO W/LUNCH 30 Days #30 tab 0 12/07/24 [Rx] Follow up Appointment(s)/Referral(s): Emanuel Sanon MD [STAFF PHYSICIAN] - 1-2 Days (Office is closed at time of discharge. Please call for follow-up appointment.) None,Stated [Primary Care Provider] - 1-2 days [facility], [REFERRING] - As Needed ([facility] will deliver IV antibiotics and supplies to your house on the evening of discharge from the hospital between 6-8pm) [facility], [NON-STAFF] - 1-2 Days ([facility] will do a start of care on 12/08/24 and they will call you to set up the time to begin IV antibiotic and ostomy teaching. ) Eddie Cook MD [STAFF PHYSICIAN] - 1 Week (Office is closed at time of discharge. Please call for follow-up appointment.) Activity/Diet/Wound Care/Special Instructions: [facility] must be notified of discharge so that they can deliver the outpatient IV antibiotics - [phone] (call the weekend adult protective caseworker if there are any issues) Wound Care: change packing every 48 hours. Pack abdominal wound with aquacel silver sheets.
--- NOTE | 2024-12-07 09:19 | P.PN ---
Subjective Progress Note Date: 12/07/24 Patient feels better. She is adamant about being discharged today. I did discuss with her white count is still mildly elevated. On exam vital signs were stable. Abdomen is soft. Status post drainage of abscess. Patient continue receive IV antibiotics. She should will need repeat CAT scan of her abdomen as an outpatient. Objective - Vital Signs Vital signs: Vital Signs Temp 98.4 F 12/07/24 07:12 Pulse 108 H 12/07/24 07:12 Resp 16 12/07/24 07:12 BP 120/80 12/07/24 07:12 Pulse Ox 98 12/07/24 07:12 FiO2 Intake & Output 12/06/24 12/07/24 12/07/24 18:59 06:59 18:59 Weight 65.317 kg Other: Voiding Method Toilet # Voids 1 3 - Labs CBC & Chem 7: 12/07/24 03:50 12/06/24 03:32 Labs: Abnormal Lab Results - Last 24 Hours (Table) 12/06/24 12/06/24 12/06/24 Range/Units 11:51 16:27 20:18 WBC (4.50-10.00) 10*3/uL RBC (4.10-5.20) 10*6/uL Hgb (12.0-15.0) g/dL Hct (37.2-46.3) % MCH (27.0-32.0) pg MCHC (32.0-37.0) g/dL RDW (11.5-14.5) % Plt Count (140-440) 10*3/uL MPV (9.5-12.2) fL Immature Gran # (0.00-0.04) 10*3/uL Neutrophils # (1.80-7.70) 10*3/uL Eosinophils # (0.04-0.35) 10*3/uL POC Glucose (mg/dL) 146 H 177 H 141 H (70-110) mg/dL 12/07/24 12/07/24 Range/Units 03:50 06:17 WBC 14.79 H (4.50-10.00) 10*3/uL RBC 3.77 L (4.10-5.20) 10*6/uL Hgb 9.9 L (12.0-15.0) g/dL Hct 32.7 L (37.2-46.3) % MCH 26.3 L (27.0-32.0) pg MCHC 30.3 L (32.0-37.0) g/dL RDW 15.4 H (11.5-14.5) % Plt Count 679 H (140-440) 10*3/uL MPV 8.8 L (9.5-12.2) fL Immature Gran # 0.30 H (0.00-0.04) 10*3/uL Neutrophils # 11.90 H (1.80-7.70) 10*3/uL Eosinophils # 0.03 L (0.04-0.35) 10*3/uL POC Glucose (mg/dL) 161 H (70-110) mg/dL Microbiology - Last 24 Hours (Table) 12/03/24 12:55 Gram Stain - Final Abdomen Wound Culture - Final Escherichia coli Klebsiella pneumoniae Proteus mirabilis
[2024-12-07 11:18] LABS: Glucose,Whole Blood 133 mg/dL (70-110)
[2024-12-07 13:43] VITALS: BP 113/61; PULSE 62; RESP 15; TEMP 98.1
--- NOTE | 2024-12-07 16:05 | P.PN ---
Subjective Progress Note Date: 12/07/24 Principal diagnosis: Reason for follow-up intra-abdominal abscess Patient is a 59-year-old female with a past medical history significant for coronary artery disease, tunnel syndrome Sjogren syndrome did have an episode of intra-abdominal abscess in July [address]- guided now presented back to the hospital with left groin pain and swelling has been diagnosed with the intra-abdominal abscess status post surgical drainage. On today's evaluation that is 12/07/2024,the patient did spike a fever of 101.8 F at 2 AM the patient is afebrile since then, patient is on room air not requiring supplemental oxygen and denies any shortness of breath no chest pain or cough.Patient denies having any nausea or vomiting, abdominal pain has decreased in intensity. Patient white count is 14.79, abdominal culture have been positive for E. coli Klebsiella and Proteus sensitive pathogen Objective - Vital Signs Vital signs: Vital Signs Temp 98.4 F 12/07/24 07:12 Pulse 108 H 12/07/24 07:12 Resp 16 12/07/24 07:12 BP 120/80 12/07/24 07:12 Pulse Ox 98 12/07/24 07:12 FiO2 Intake & Output 12/06/24 12/07/24 12/07/24 18:59 06:59 18:59 Weight 65.317 kg Other: Voiding Method Toilet # Voids 1 3 - Exam GENERAL DESCRIPTION: Middle-age female lying in bed in no distress RESPIRATORY SYSTEM: Unlabored breathing , decreased breath sounds at bases HEART: S1 S2 regular rate and rhythm , ABDOMEN: Soft , no tenderness EXTREMITIES: No edema feet - Labs CBC & Chem 7: 12/07/24 03:50 12/06/24 03:32 Labs: Abnormal Lab Results - Last 24 Hours (Table) 12/06/24 12/06/24 12/07/24 Range/Units 16:27 20:18 03:50 WBC 14.79 H (4.50-10.00) 10*3/uL RBC 3.77 L (4.10-5.20) 10*6/uL Hgb 9.9 L (12.0-15.0) g/dL Hct 32.7 L (37.2-46.3) % MCH 26.3 L (27.0-32.0) pg MCHC 30.3 L (32.0-37.0) g/dL RDW 15.4 H (11.5-14.5) % Plt Count 679 H (140-440) 10*3/uL MPV 8.8 L (9.5-12.2) fL Immature Gran # 0.30 H (0.00-0.04) 10*3/uL Neutrophils # 11.90 H (1.80-7.70) 10*3/uL Eosinophils # 0.03 L (0.04-0.35) 10*3/uL POC Glucose (mg/dL) 177 H 141 H (70-110) mg/dL 12/07/24 12/07/24 Range/Units 06:17 11:17 WBC (4.50-10.00) 10*3/uL RBC (4.10-5.20) 10*6/uL Hgb (12.0-15.0) g/dL Hct (37.2-46.3) % MCH (27.0-32.0) pg MCHC (32.0-37.0) g/dL RDW (11.5-14.5) % Plt Count (140-440) 10*3/uL MPV (9.5-12.2) fL Immature Gran # (0.00-0.04) 10*3/uL Neutrophils # (1.80-7.70) 10*3/uL Eosinophils # (0.04-0.35) 10*3/uL POC Glucose (mg/dL) 161 H 133 H (70-110) mg/dL Microbiology - Last 24 Hours (Table) 12/03/24 12:55 Gram Stain - Final Abdomen Wound Culture - Final Escherichia coli Klebsiella pneumoniae Proteus mirabilis Assessment and Plan (1) Abdominal abscess Current Visit: Yes Status: Acute Code(s): [id number] - SNOMED Code(s): 78943156 (2) Sepsis Current Visit: No Status: Acute Code(s): A41.9 - SEPSIS, UNSPECIFIED ORGANISM SNOMED Code(s): 08726389 Plan: 1patient presented to the hospital with sepsis in this patient who did have a low-grade fever tachycardia elevated white count meeting criteria for SIRS/sepsis source is left lower quadrant abscess possibly diverticular abscess in this patient who did have a previous history of intra-abdominal abscess which was a mix of anaerobic anaerobes likely perforated diverticulitis and secondary abscess 2patient is status post surgical drainage of this abscess and fluid has been sent for culture both aerobic and anaerobic which are currently growing E. coli sensitive pathogen sensitivity on the Proteus is still pending 3patient has been demanding her discharge however the patient did have a fever and white count is still elevated I think we should go for a repeat CT abdominal pelvis to make sure no evidence of any any new abscess formation that may need to be drained before discharging cultures were discussed in detail with the HEM INSPECTOR for admitting team for now continue with [facility] Dictation was produced using [employer] dictation software. please excuse any grammatical, word or spelling errors. Time with Patient: Less than 30
[2024-12-07 16:15] LABS: Glucose,Whole Blood 111 mg/dL (70-110)
--- NOTE | 2024-12-07 18:14 | CT ---
EXAMINATION TYPE: CT abdomen pelvis w con DATE OF EXAM: 12/07/2024 4:59 PM COMPARISON: CT abdomen pelvis most recent from 12/02/2024. CLINICAL INDICATION: Female, 59 years old with history of fever and leukocytosis; Fever and leukocyto sis TECHNIQUE: Axial CT abdomen pelvis w con;Sagittal and coronal reformats were created on a separate w orkstation. Contrast used:100ML mL of Isovue 300 with IV Contrast, (none if empty) Oral contrast used: without Oral Contrast (none if empty) CT DLP: 866.3 mGycm, Automated exposure control for dose reduction was used. FINDINGS: LOWER CHEST: Moderate to large hiatal hernia present. ABDOMEN LIVER: Unremarkable GALLBLADDER AND BILE DUCTS: Unremarkable. PANCREAS: Unremarkable. SPLEEN: Unremarkable. ADRENAL GLANDS: Unremarkable. KIDNEYS AND URETERS: No evidence of hydronephrosis or obstructing renal calculus. The ureters are unr emarkable. Nonobstructing 5 mm right calculus. No left renal calculi. PELVIS BLADDER: No evidence for wall thickening or mass given limitations of exam. REPRODUCTIVE: Unremarkable. ABDOMEN & PELVIS STOMACH AND BOWEL: No evidence of bowel obstruction. PERITONEUM/RETROPERITONEUM: No evidence of pneumoperitoneum or free fluid. VASCULATURE: No evidence of aortic aneurysm. MUSCULOSKELETAL: No acute osseous abnormalities, subacute chronic appearing bilateral inferior pubic ramus fractures. Left superior pubic ramus fracture also present. T10 vertebral body compression frac ture with near complete height loss anteriorly. LYMPH NODES: No gross evidence for lymphadenopathy. SOFT TISSUE/ABDOMINAL WALL: Postsurgical intervention to the left lower quadrant fluid collection. Th ere remains check of gas extending to the anterior abdominal wall. Small tract extends into the abdom en which has decreased in size. Intraabdominal fluid collection and gas previously 41 x 28 mm now 26 x 17 mm. IMPRESSION: 1. Interval surgical changes the left lower quadrant subcutaneous abdominal fluid collection which i s nearly been completely removed. There remains gaseous tract down to the abdominal wall present. No significant fluid in the subcutaneous tissues. Anterior intra-abdominal fluid collection has decrease d in size and gas compared to prior. Continued attention on follow-up imaging with repeat exam in 5-7 days recommended. 2. Moderate to large hiatal hernia. 3. Nonobstructing right renal calculus. [facility], Workstation: [email or web address], 12/07/2024 6:11 PM
== END 2024-12-07 18:44 | disposition home health service (06) | DRG 853 ==
LOC: EC 12:39 → 4SSUR 18:33
PROVIDERS: ADMIT Internal Medicine; ATTEND Internal Medicine
PROC: 0Y960ZZ Drainage of Left Inguinal Region, Open Approach (ICD-10-PCS; principal; 2024-12-03 09:00)
DX: A41.51 Sepsis due to Escherichia coli [E. coli] (principal); K65.1 Peritoneal abscess; E87.20 Acidosis, unspecified; E88.09 Other disorders of plasma-protein metabolism, not elsewhere classified; A41.89 Other specified sepsis; A41.59 Other Gram-negative sepsis; E11.22 Type 2 diabetes mellitus with diabetic chronic kidney disease; G35 Multiple sclerosis; D50.9 Iron deficiency anemia, unspecified; I12.9 Hypertensive chronic kidney disease with stage 1 through stage 4 chronic kidney disease, or unspecified chronic kidney disease; M35.00 Sjogren syndrome, unspecified; N18.9 Chronic kidney disease, unspecified; L02.211 Cutaneous abscess of abdominal wall; E11.65 Type 2 diabetes mellitus with hyperglycemia; N73.9 Female pelvic inflammatory disease, unspecified; D75.839 Thrombocytosis, unspecified; R74.01 Elevation of levels of liver transaminase levels; I25.10 Atherosclerotic heart disease of native coronary artery without angina pectoris; M79.7 Fibromyalgia; K46.9 Unspecified abdominal hernia without obstruction or gangrene; R79.89 Other specified abnormal findings of blood chemistry; Z79.84 Long term (current) use of oral hypoglycemic drugs; Z79.899 Other long term (current) drug therapy; Z88.2 Allergy status to sulfonamides; Z88.6 Allergy status to analgesic agent; Z90.710 Acquired absence of both cervix and uterus
CPT/HCPCS: 36410; 36415; 74177; 76937; 80048; 80053; 81003; 82150; 83036; 83540; 83550; 83605; 83690; 83735; 84100; 85025; 85027; 85610; 85730; 87070; 87075; 87077; 87186; 87205; 96361; 96365; 96366; 96375; 99291

== ENCOUNTER → 2024-12-30 | Outpatient (CLI) | payer MEDICARE ==
[2024-12-30 16:12] LABS: African American GFR (CKD) 72 (>60 ml/min/1.73 sqM); Blood Urea Nitrogen 9 mg/dL (7-17); Non-African American GFR(CKD) 62 (>60 ml/min/1.73 sqM)
--- NOTE | 2024-12-30 18:40 | CT ---
EXAMINATION TYPE: CT abdomen pelvis w con DATE OF EXAM: 12/30/2024 5:48 PM COMPARISON: Numerous recent CT abdomen/pelvis that is relatively dated 12/08/2023. CLINICAL INDICATION: Female, 59 years old with history of K65.1 PERITONEAL ABSCESS; PERITONEAL ABCESS REMOVAL X 2-3 WEEKS AGO, N/V/D SINCE THIS PAST WEEKEND. PT ONLY ABLE TO FINISH 30 CC'S ISOVUE 300 WI TH WATER FOR ORAL TECHNIQUE: Axial CT abdomen pelvis w con;Sagittal and coronal reformats were created on a separate w orkstation. Contrast used:100ml mL of Isovue 300 with IV Contrast, (none if empty) Oral contrast used: with Oral Contrast (none if empty) CT DLP: 485.10 mGycm, Automated exposure control for dose reduction was used. FINDINGS: LOWER CHEST: Unremarkable ABDOMEN LIVER: Unremarkable GALLBLADDER AND BILE DUCTS: Unremarkable. PANCREAS: Unremarkable. SPLEEN: Unremarkable. ADRENAL GLANDS: Unremarkable. KIDNEYS AND URETERS: Nonobstructing 5 mm right-sided renal calculus. No evidence of hydronephrosis. T he ureters are unremarkable. PELVIS BLADDER: No evidence for wall thickening or mass given limitations of exam. REPRODUCTIVE: Unremarkable. ABDOMEN & PELVIS STOMACH AND BOWEL: Stomach and duodenum are unremarkable. No evidence of bowel obstruction. Moderate to large hiatal hernia with partial intrathoracic stomach. Duodenal diverticulum. PERITONEUM/RETROPERITONEUM: No evidence of pneumoperitoneum or free fluid. VASCULATURE: No evidence of aortic aneurysm. MUSCULOSKELETAL: No acute osseous abnormalities. Chronic severe T10 vertebral body compression deform ity identified and appreciated. Old left-sided rib fracture deformities. Grade 1 anterolisthesis of L 5 on S1. Osseous structures appear demineralized. Old inferior pubic rami fractures. LYMPH NODES: No gross evidence for lymphadenopathy. SOFT TISSUE/ABDOMINAL WALL: Interval postsurgical intervention in the left lower anterior abdominal w all with associated open wound defect. Couple tiny residual gas foci within the left lower quadrant a nterior abdominal wall. No residual drainable fluid collection/abscess. No residual drainable abscess within the anterior abdominal wall or peritoneal cavity. IMPRESSION: Post surgical changes in the left lower quadrant anterior abdominal wall with significantly improving soft tissue gas compared to prior study dated 11/27/2024. No residual drainable fluid collection/absc ess. [facility], , 12/30/2024 6:37 PM
== END | disposition home or self-care (01) ==
LOC: RADCTMAIN 15:09
PROVIDERS: ATTEND Internal Medicine Infectious Disease
DX: K65.1 Peritoneal abscess (principal); Z98.890 Other specified postprocedural states
CPT/HCPCS: 82565; 84520; 74177; 36415; Q9967

== ENCOUNTER 2024-12-31 16:16 | Inpatient (IN) | payer MEDICARE ==
--- NOTE | 2024-12-31 17:19 | ED ---
General Adult HPI - General Source: patient, RN notes reviewed Mode of arrival: ambulatory Limitations: no limitations <KimoRandall - Last Filed: 12/31/24 17:17> - General Source: patient, RN notes reviewed, old records reviewed Mode of arrival: ambulatory Limitations: no limitations - History of Present Illness -: days(s) Consistency: constant Improves with: none Worsens with: none Associated Symptoms: denies other symptoms Treatments Prior to Arrival: none <August Martell - Last Filed: 01/03/25 23:49> - General Chief complaint: Recheck/Abnormal Lab/Rx Stated complaint: Withdrawal Time Seen by Provider: 12/31/24 16:31 - History of Present Illness Initial comments: Quick note: This is a 59-year-old female with history including CAD, renal disease, MS and fibromyalgia presenting for pain and GI symptoms x 7 days. Patient states she is unable to have her ADHD medication (Dexedrine) refilled, stating all pharmacies that she has called state they do not have that medication available. Patient states she is in having N/V/D and diffuse body pain since she stopped the medication. Patient states pain in her legs is the worst (10/10). States she is not eaten for the past 6 days, only drinking water. Endorses use of Imodium and Tylenol with minimal relief. Denies fever, chills, chest pain, dyspnea, dizziness, abdominal pain, hematemesis, hematochezia, melena, urinary symptoms. (Randall Malin) This is a 59 female to ER with believe she is going through some sort of medication withdrawal recently off her Adderall type medication. Patient presents today for evaluation of nausea vomiting diarrhea not feeling well (August Martell) - Related Data Home Medications Medication Instructions Recorded Confirmed rOPINIRole HCL [Requip] 10 mg PO HS 09/27/17 01/01/25 Dextroamphetamine Sulfate 15 mg PO BID 12/20/18 01/01/25 [Dexedrine] Cetirizine HCl 10 mg PO HS 03/23/21 01/01/25 Diclofenac Sodium Gel [Voltaren 1% 2 gm TOPICAL BID PRN 03/23/21 01/01/25 Gel] Pantoprazole Sodium [Protonix] 40 mg PO BID 09/02/22 01/01/25 Ascorbic Acid [Vitamin C] 1,000 mg PO DAILY 08/12/24 01/01/25 Cyclobenzaprine [Flexeril] 10 mg PO TID PRN 08/12/24 01/01/25 Melatonin 20 mg PO HS 08/12/24 01/01/25 Prebiotic/Probiotic 1 cap PO DAILY 08/12/24 01/01/25 Multivitamins, Thera [Multivitamin 1 tab PO DAILY 12/02/24 01/01/25 (formulary)] Potassium Chloride ER [K-Dur 20] 20 meq PO DAILY 12/02/24 01/01/25 ondansetron HCL [Zofran] 8 mg PO BID 12/02/24 01/01/25 Amoxic-Pot Clav 875-125Mg 1 tab PO Q12HR 01/01/25 01/01/25 [Augmentin 875-125] Metoprolol Tartrate [Lopressor] 25 mg PO DAILY 01/01/25 01/01/25 QUEtiapine FUMARATE [SEROquel] 25 mg PO HS 01/01/25 01/01/25 SUMAtriptan succinate [Imitrex] 25 mg PO TID PRN 01/01/25 01/01/25 Previous Rx's Medication Instructions Recorded amLODIPine [Norvasc] 5 mg PO DAILY #30 tab 08/19/24 Ferrous Sulfate [Iron (65 MG 325 mg PO W/LUNCH 30 Days #30 tab 12/07/24 Elemental)] Allergies Allergy/AdvReac Type Severity Reaction Status Date / Time Sulfa (Sulfonamide Allergy Swelling Verified 01/01/25 07:42 Antibiotics) aspirin AdvReac Abdominal Verified 01/01/25 07:42 Pain hydralazine AdvReac Rapid Verified 01/01/25 07:42 Heart Rate Review of Systems ROS Other: All systems not noted in ROS Statement are negative. <Randall Malin - Last Filed: 12/31/24 17:17> ROS Other: All systems not noted in ROS Statement are negative. <August Martell - Last Filed: 01/03/25 23:49> ROS Statement: Those systems with pertinent positive or pertinent negative responses have been documented in the HPI. Past Medical History Past Medical History: Coronary Artery Disease (CAD), Chest Pain / Angina, Fibromyalgia, Musculoskeletal Disorder, Renal Disease Additional Past Medical History / Comment(s): Migraines, Shrgren syndrome, DDD, MS,. Right BBB, CKD, Tarsal tunnel syndrome, vertigo History of Any Multi-Drug Resistant Organisms: ESBL Date of last positivie culture/infection: 03/01/22 ESBL E.coli MDRO Source:: URINE Past Surgical History: Appendectomy, Hysterectomy, Orthopedic Surgery Additional Past Surgical History / Comment(s): right ankle, abdominal laparoscopies, Prexacral Neurectomy, Cryosurgery, Past Anesthesia/Blood Transfusion Reactions: No Reported Reaction Past Psychological History: No Psychological Hx Reported Smoking Status: Never smoker Past Alcohol Use History: None Reported Past Drug Use History: None Reported - Past Family History Father Family Medical History: AICD/Pacemaker, Congestive Heart Failure (CHF), COPD, Diabetes Mellitus, Myocardial Infarction (PA) Additional Family Medical History / Comment(s): Father at age 83 in his sleep. He has history of AICD. Mother Family Medical History: Hypertension Additional Family Medical History / Comment(s): Mother is alive at age 77 with history of hypertension and bronchiectasis. Patient has 2 brothers with no major medical problems. Patient does not have any sisters. Patient is one daug hter with no major medical problems. <Randall Malin - Last Filed: 12/31/24 17:17> General Exam Limitations: no limitations <Randall Malin - Last Filed: 12/31/24 17:17> General appearance: alert, in no apparent distress, anxious Head exam: Present: atraumatic, normocephalic, normal inspection Eye exam: Present: normal appearance, PERRL, EOMI. Absent: scleral icterus, conjunctival injection, periorbital swelling ENT exam: Present: normal exam, mucous membranes dry Neck exam: Present: normal inspection. Absent: tenderness, meningismus, lymphadenopathy Respiratory exam: Present: normal lung sounds bilaterally. Absent: respiratory distress, wheezes, rales, rhonchi, stridor Cardiovascular Exam: Present: normal rhythm, tachycardia, normal heart sounds. Absent: systolic murmur, diastolic murmur, rubs, gallop, clicks GI/Abdominal exam: Present: soft, normal bowel sounds. Absent: distended, tenderness, guarding, rebound, rigid Extremities exam: Present: normal inspection, full ROM, normal capillary refill. Absent: tenderness, pedal edema, joint swelling, calf tenderness Back exam: Present: normal inspection Neurological exam: Present: alert, oriented X3, CN II-XII intact Psychiatric exam: Present: normal affect, normal mood Skin exam: Present: warm, dry, intact, normal color. Absent: rash <August Martell - Last Filed: 01/03/25 23:49> - General Exam Comments Initial Comments: Visual Physical Exam Vital signs reviewed General: Patient appears fatigued. Nontoxic, no acute distress. Head: Normocephalic, atraumatic Eyes: PERRLA, EOMI ENT: Airway patent Chest: Nonlabored breathing Skin: No visual rash, normal skin tone Neuro: Alert and oriented 3 Musculoskeletal: No gross abnormalities (Randall Malin) Course <August Martell - Last Filed: 01/03/25 23:49> Vital Signs 12/31/24 12/31/24 12/31/24 16:31 19:43 21:29 Temperature 98.5 F Pulse Rate 107 H 76 78 Respiratory 20 18 18 Rate Blood Pressure 92/62 142/76 105/83 O2 Sat by Pulse 97 98 98 Oximetry 12/31/24 12/31/24 23:28 23:30 Temperature 98.1 F Pulse Rate 106 H Respiratory 18 19 Rate Blood Pressure 131/73 131/73 O2 Sat by Pulse 97 97 Oximetry - Reevaluation(s) Reevaluation #1: 12/31/24 20:08 Medical records reviewed (August Martell) Reevaluation #2: 12/31/24 20:08 Symptoms continue to improve (August Martell) Reevaluation #3: 12/31/24 20:08 Patient reported results questions answered (August Martell) Reevaluation #4: Was pt. sent in by a medical professional or institution (, PA, HEAVY EQUIPMENT OPERATOR, urgent care, hospital, or [facility]...) When possible be specific @ -no Did you speak to anyone other than the patient for history (EMS, parent, family, police, friend...)? What history was obtained from this source @ -no Did you review nursing and triage notes (agree or disagree)? Why? @ -agree Are old charts reviewed (outside hosp., previous admission, EMS record, old EKG, old radiological studies, urgent care reports/EKG's, [facility] records)? Report findings @ -yes Differential Diagnosis (chest pain, altered mental status, abdominal pain women, abdominal pain men, vaginal bleeding, weakness, fever, dyspnea, syncope, headache, dizziness, GI bleed, back pain, seizure, CVA, palpatations, mental health, musculoskeletal)? @ -prior EKG interpreted by me (3pts min.). @ -no X-rays interpreted by me (1pt min.). @ -no CT interpreted by me (1pt min.). @ -no U/S interpreted by me (1pt. min.). @ -no What testing was considered but not performed or refused? (CT, X-rays, U/S, labs)? Why? @ -none What meds were considered but not given or refused? Why? @ -none Did you discuss the management of the patient with other professionals (professionals i.e. , PA, HEAVY EQUIPMENT OPERATOR, lab, RT, psych nurse, social studies department chair, record center specialist, teacher, chief privacy officer, clinical case manager)? Give summary @ -no Was smoking cessation discussed for >3mins.? @ -no Was critical care preformed (if so, how long)? @ -no Were there social determinants of health that impacted care today? How? (Homelessness, low income, unemployed, alcoholism, drug addiction, transportation, low edu. Level, literacy, decrease access to med. care, halfway, rehab)? @ -none Was there de-escalation of care discussed even if they declined (Discuss DNR or withdrawal of care, Hospice)? DNR status @ -no What co-morbidities impacted this encounter? (DM, HTN, Smoking, COPD, CAD, Cancer, CVA, ARF, Chemo, Hep., AIDS, mental health diagnosis, sleep apnea, mor bid obesity)? @ -none Was patient admitted / discharged? Hospital course, mention meds given and ro ione, prescriptions, significant lab abnormalities, going to OR and other pertinent info. @ - 59 female to the ER for evaluation abdominal pain nausea vomiting and diarrhea. Abdominal, urinary tract infection severe dehydration patient will be admitted for IV antibiotics IV hydration Admitted Undiagnosed new problem with uncertain prognosis? @ -no Drug Therapy requiring intensive monitoring for toxicity (Heparin, Nitro, Insulin, Cardizem)? @ -no Were any procedures done? @ -no Diagnosis/symptom? @ -Nausea vomiting dehydration found to have UTI on top of abdominal abscess Acute, or Chronic, or Acute on Chronic? @ -Acute Uncomplicated (without systemic symptoms) or Complicated (systemic symptoms)? @ -Complicated Side effects of treatment? @ -no Exacerbation, Progression, or Severe Exacerbation? @ -exacerbation Poses a threat to life or bodily function? How? (Chest pain, USA, PA, pneumonia, PE, COPD, DKA, ARF, appy, cholecystitis, CVA, Diverticulitis, Homicidal, Suicidal, threat to staff... and all critical care pts) @ -yes significantly multiple infections (August Martell) Reevaluation #5: Differential Weakness: Hypoglycemia, shock, sepsis, hyponatremia, anemia, infection, PA, ETOH, adverse medicine reaction, overdose, stroke, this is not meant to be an all-inclusive list. (August Martell) - Consultations Consultation #1: Spoke with [facility] who agrees to admit this patient (August Martell) Medical Decision Making <Randall Malin - Last Filed: 12/31/24 17:17> - Lab Data Result diagrams: 01/03/25 06:29 01/03/25 06:29 <August Martell - Last Filed: 01/03/25 23:49> - Medical Decision Making I completed the quick note portion of this chart signed MELIZA Soto (Randall Malin) 59 female to the ER for evaluation abdominal pain nausea vomiting and diarrhea. Abdominal, urinary tract infection severe dehydration patient will be admitted for IV antibiotics IV hydration (August Martell) - Lab Data Lab Results 12/31/24 12/31/24 12/31/24 Range/Units 19:06 19:06 19:06 WBC 12.84 H (4.50-10.00) 10*3/uL RBC 3.98 L (4.10-5.20) 10*6/uL Hgb 10.4 L (12.0-15.0) g/dL Hct 34.7 L (37.2-46.3) % MCV 87.2 (80.0-97.0) fL MCH 26.1 L (27.0-32.0) pg MCHC 30.0 L (32.0-37.0) g/dL Plt Count 618 H (140-440) 10*3/uL MPV 8.6 L (9.5-12.2) fL Immature Gran % (Auto) 0.4 % Neutrophils % 78.0 % Lymphocytes % 10.9 % Monocytes % 8.6 % Eosinophils % 1.6 % Basophils % 0.5 % Immature Gran # 0.05 H (0.00-0.04) 10*3/uL Neutrophils # 10.02 H (1.80-7.70) 10*3/uL Lymphocytes # 1.40 (0.90-5.00) 10*3/uL Monocytes # 1.11 H (0.20-1.00) 10*3/uL Eosinophils # 0.20 (0.04-0.35) 10*3/uL Basophils # 0.06 (0.00-0.10) 10*3/uL Sodium 138 (137-145) mmol/L Potassium 4.6 (3.5-5.1) mmol/L Chloride 105 (98-107) mmol/L Carbon Dioxide 14 L (22-30) mmol/L Anion Gap 19 mmol/L BUN 10 (7-17) mg/dL Creatinine 0.88 (0.52-1.04) mg/dL Est GFR (CKD-EPI)AfAm 85 (>60 ml/min/1.73 sqM) Est GFR (CKD-EPI)NonAf 74 (>60 ml/min/1.73 sqM) Glucose 79 (74-99) mg/dL Plasma Lactic Acid Deangelo 0.9 (0.7-2.0) mmol/L Calcium 11.5 H (8.4-10.2) mg/dL Magnesium 1.6 (1.6-2.3) mg/dL Total Bilirubin 0.5 (0.2-1.3) mg/dL AST 46 H (14-36) U/L ALT 40 H (4-34) U/L Alkaline Phosphatase 141 H (38-126) U/L Total Protein 6.9 (6.3-8.2) g/dL Albumin 4.2 (3.5-5.0) g/dL Urine Color Urine Appearance (Clear) Urine pH (5.0-8.0) Ur Specific [place] (1.001-1.035) Urine Protein (Negative) Urine Glucose (UA) (Negative) Urine Ketones (Negative) Urine Blood (Negative) Urine Nitrite (Negative) Urine Bilirubin (Negative) Urine Urobilinogen (<2.0) mg/dL Ur Leukocyte Esterase (Negative) Urine RBC (0-5) /hpf Urine WBC (0-5) /hpf Urine WBC Clumps (None) /hpf Ur Squamous Epith Cells (0-4) /hpf Urine Bacteria (None) /hpf Urine Mucus (None) /hpf 12/31/24 Range/Units 19:51 WBC (4.50-10.00) 10*3/uL RBC (4.10-5.20) 10*6/uL Hgb (12.0-15.0) g/dL Hct (37.2-46.3) % MCV (80.0-97.0) fL MCH (27.0-32.0) pg MCHC (32.0-37.0) g/dL Plt Count (140-440) 10*3/uL MPV (9.5-12.2) fL Immature Gran % (Auto) % Neutrophils % % Lymphocytes % % Monocytes % % Eosinophils % % Basophils % % Immature Gran # (0.00-0.04) 10*3/uL Neutrophils # (1.80-7.70) 10*3/uL Lymphocytes # (0.90-5.00) 10*3/uL Monocytes # (0.20-1.00) 10*3/uL Eosinophils # (0.04-0.35) 10*3/uL Basophils # (0.00-0.10) 10*3/uL Sodium (137-145) mmol/L Potassium (3.5-5.1) mmol/L Chloride (98-107) mmol/L Carbon Dioxide (22-30) mmol/L Anion Gap mmol/L BUN (7-17) mg/dL Creatinine (0.52-1.04) mg/dL Est GFR (CKD-EPI)AfAm (>60 ml/min/1.73 sqM) Est GFR (CKD-EPI)NonAf (>60 ml/min/1.73 sqM) Glucose (74-99) mg/dL Plasma Lactic Acid Deangelo (0.7-2.0) mmol/L Calcium (8.4-10.2) mg/dL Magnesium (1.6-2.3) mg/dL Total Bilirubin (0.2-1.3) mg/dL AST (14-36) U/L ALT (4-34) U/L Alkaline Phosphatase (38-126) U/L Total Protein (6.3-8.2) g/dL Albumin (3.5-5.0) g/dL Urine Color Yellow Urine Appearance Cloudy H (Clear) Urine pH 5.5 (5.0-8.0) Ur Specific [place] 1.021 (1.001-1.035) Urine Protein 1+ H (Negative) Urine Glucose (UA) Negative (Negative) Urine Ketones 4+ H (Negative) Urine Blood Trace H (Negative) Urine Nitrite Negative (Negative) Urine Bilirubin 1+ H (Negative) Urine Urobilinogen 4.0 (<2.0) mg/dL Ur Leukocyte Esterase Large H (Negative) Urine RBC 27 H (0-5) /hpf Urine WBC 87 H (0-5) /hpf Urine WBC Clumps Occasional H (None) /hpf Ur Squamous Epith Cells 6 H (0-4) /hpf Urine Bacteria Rare H (None) /hpf Urine Mucus Rare H (None) /hpf Disposition <Randall Malin - Last Filed: 12/31/24 17:17> Is patient prescribed a controlled substance at d/c from ED?: No Time of Disposition: 21:00 <August Martell - Last Filed: 01/03/25 23:49> Clinical Impression: Gastroenteritis, Abdominal pain, Nausea vomiting and diarrhea, UTI (urinary tract infection), Dehydration Disposition: ADMITTED IP TO THIS HOSP Condition: Serious
[2024-12-31 19:10] LABS: Basophils # (A) 0.06 10*3/uL (0.00-0.10); Basophils % (A) 0.5 %; Eosinophils % (A) 1.6 %; HCT 34.7 % (37.2-46.3); HGB 10.4 g/dL (12.0-15.0); Lymphocytes % (A) 10.9 %; MCH 26.1 pg (27.0-32.0); MCV 87.2 fL (80.0-97.0); Mean Platelet Volume 8.6 fL (9.5-12.2); Monocytes # (A) 1.11 10*3/uL (0.20-1.00); Monocytes % (A) 8.6 %; Neutrophils # (A) 10.02 10*3/uL (1.80-7.70); Platelet Count 618 10*3/uL (140-440); RBC 3.98 10*6/uL (4.10-5.20); RDW 16.5 % (11.5-14.5); WBC 12.84 10*3/uL (4.50-10.00)
[2024-12-31 19:21] LABS: ALT 40 U/L (4-34); AST 46 U/L (14-36); African American GFR (CKD) 85 (>60 ml/min/1.73 sqM); Albumin 4.2 g/dL (3.5-5.0); Alkaline Phosphatase 141 U/L (38-126); Anion Gap 19 mmol/L; Blood Urea Nitrogen 10 mg/dL (7-17); Calcium 11.5 mg/dL (8.4-10.2); Carbon Dioxide 14 mmol/L (22-30); Chloride 105 mmol/L (98-107); Glucose 79 mg/dL (74-99); Magnesium 1.6 mg/dL (1.6-2.3); Non-African American GFR(CKD) 74 (>60 ml/min/1.73 sqM); Potassium 4.6 mmol/L (3.5-5.1); Sodium 138 mmol/L (137-145); Total Bilirubin 0.5 mg/dL (0.2-1.3); Total Protein 6.9 g/dL (6.3-8.2)
[2024-12-31] MEDS: LORazepam 1 MG/0.5 ML VIAL IV STA (19:46)
[2024-12-31] MEDS: SODIUM CHLORIDE 0.9% 1,000 ML IV ONE (19:46)
[2024-12-31] MEDS: ONDANSETRON 4 MG/2 ML VIAL IVP STA (19:46)
[2024-12-31] MEDS: SODIUM CHLORIDE 0.9% 1,000 ML IV STA (19:46)
[2024-12-31 20:18] LABS: Appearance,Urine Cloudy (Clear); Bacteria,Urine Rare /hpf; Bilirubin,Urine 1+ (Negative); Blood,Urine Trace (Negative); Color,Urine Yellow; Glucose,Urine (UA) Negative (Negative); Ketones,Urine 4+ (Negative); Leukocyte Esterase,Urine Large (Negative); Mucus,Urine Rare /hpf; Nitrite,Urine Negative (Negative); PH, Urine 5.5 (5.0-8.0); Protein,Urine 1+ (Negative); RBC,Urine 27 /hpf (0-5); Specific Gravity,Urine 1.021 (1.001-1.035); Squamous Epithelial Cell,Urine 6 /hpf (0-4); WBC,Urine 87 /hpf (0-5)
[2024-12-31] MEDS: PIPERACILLIN-TAZOBACTAM 3.375 GM in SODIUM CHLORIDE 0.9% 100 ML IVPB STA (20:55)
[2024-12-31] MEDS ORDERED: ONDANSETRON 4 MG/2 ML VIAL IVP PRN (20:56)
[2024-12-31] MEDS ORDERED: LORazepam 0.5 MG TAB PO PRN (20:56)
[2024-12-31] MEDS ORDERED: NALOXONE 0.4 MG/ML 1 ML VIAL IV PRN (20:56)
[2024-12-31 23:06] LABS: Influenza A Not Detected (Not Detectd); Influenza B Not Detected (Not Detectd); RSV Not Detected (Not Detectd)
[2024-12-31] MEDS: MORPHINE SULFATE 4 MG/ML SYRINGE IV PRN (23:27)
[2025-01-01] MEDS: DEXTROSE 5%-0.45% NACL 1,000 ML IV SCH (00:20)
[2025-01-01 01:11] LABS: Glucose,Whole Blood 71 mg/dL (70-110)
[2025-01-01 02:31] LABS: Glucose,Whole Blood 102 mg/dL (70-110)
[2025-01-01] MEDS ORDERED: ACETAMINOPHEN TAB 325 MG TAB PO PRN (03:53)
[2025-01-01 06:05] LABS: Basophils # (A) 0.05 10*3/uL (0.00-0.10); Basophils % (A) 0.7 %; Eosinophils # (A) 0.26 10*3/uL (0.04-0.35); Eosinophils % (A) 3.7 %; HCT 30.8 % (37.2-46.3); Lymphocytes # (A) 1.59 10*3/uL (0.90-5.00); Lymphocytes % (A) 22.8 %; MCH 25.6 pg (27.0-32.0); MCHC 29.2 g/dL (32.0-37.0); MCV 87.7 fL (80.0-97.0); Mean Platelet Volume 8.7 fL (9.5-12.2); Monocytes # (A) 0.76 10*3/uL (0.20-1.00); Monocytes % (A) 10.9 %; Neutrophils # (A) 4.29 10*3/uL (1.80-7.70); Neutrophils % (A) 61.6 %; Platelet Count 564 10*3/uL (140-440); RBC 3.51 10*6/uL (4.10-5.20); RDW 16.6 % (11.5-14.5); WBC 6.97 10*3/uL (4.50-10.00)
[2025-01-01 06:35] LABS: ALT 29 U/L (4-34); AST 35 U/L (14-36); African American GFR (CKD) >90 (>60 ml/min/1.73 sqM); Alkaline Phosphatase 112 U/L (38-126); Anion Gap 16 mmol/L; Blood Urea Nitrogen 6 mg/dL (7-17); Carbon Dioxide 12 mmol/L (22-30); Chloride 109 mmol/L (98-107); Glucose 80 mg/dL (74-99); Magnesium 1.5 mg/dL (1.6-2.3); Non-African American GFR(CKD) 86 (>60 ml/min/1.73 sqM); Phosphorus 4.1 mg/dL (2.5-4.5); Potassium 4.3 mmol/L (3.5-5.1); Sodium 137 mmol/L (137-145); Total Bilirubin 0.3 mg/dL (0.2-1.3); Total Protein 5.5 g/dL (6.3-8.2)
[2025-01-01] MEDS ORDERED: IOPAMIDOL CONTRAST (ORAL USE) VIAL PO PRN ×2 (10:45→13:08)
[2025-01-01] MEDS: PIPERACILLIN-TAZOBACTAM 3.375 GM in SODIUM CHLORIDE 0.9% 100 ML IVPB SCH (11:30)
--- NOTE | 2025-01-01 12:18 | HP ---
HISTORY AND PHYSICAL CHIEF COMPLAINTS: Nausea, vomiting, diarrhea, and abdominal pain. HISTORY OF PRESENT ILLNESS: This is a 59-year-old woman with a past medical history of multiple medical problems including left abdominal wall abscess, which was recently treated, is complaining of nausea, vomiting, and diarrhea. The wound culture showed E coli Klebsiella and Proteus mirabilis. The patient admitted for further evaluation and treatment. There is no history of fever, rigors, or chills at this time. The white count is elevated on admission. UTI is also suspected. PAST MEDICAL HISTORY: History of abdominal wall abscess, history of CAD, fibromyalgia, history of migraine, renal disease, and history of ESBL. Rest of the history and the chart is also reviewed. HOME MEDICATIONS: Reviewed, include Imitrex and Augmentin. Rest of the medication and doses are reviewed. ALLERGIES: Reviewed include sulfa. FAMILY HISTORY: History of AICD, COPD, and CHF. The rest of the family history is noted. REVIEW OF SYSTEMS: A 14-point review of systems negative except as mentioned earlier. PHYSICAL EXAMINATION: VITAL SIGNS: Pulse is 117, blood pressure 108/60, and respirations 20. HEENT: Conjunctivae normal. NECK: No jugular venous distention. CARDIOVASCULAR: S1, S2. RESPIRATION: Breath sounds diminished at the bases. A few scattered rhonchi. ABDOMEN: Soft, mild diffuse tenderness. No guarding. No rigidity. No masses. LEGS: No edema. NERVOUS SYSTEM: Nonfocal. LABORATORY DATA: Reviewed. ASSESSMENT: 1. Nausea, vomiting, diarrhea, possible acute gastroenteritis. 2. Rule out sepsis. 3. Rule out C diff. 4. Possible acute urinary tract infection. 5. History of recent abdominal wall abscess, which is polymicrobial cleopatra including E coli, Klebsiella and Proteus. 6. History of fibromyalgia. 7. History of extended spectrum beta-lactamase. 8. History of appendectomy and hysterectomy. RECOMMENDATIONS AND DISCUSSION: This 59-year-old woman presented with multiple complex medical issues. At this time, we will monitor the patient closely. Continue current management and continue symptomatic treatment. I would recommend C difficile checking, Infectious Disease and Surgery evaluation. Recommend CT scan of the abdomen and pelvis, broad-spectrum IV antibiotics has been initiated and guarded prognosis, because of multiple complex medical issues and see orders for further details. MMODL / IJN: [id number] /
[2025-01-01 12:25] LABS: Glucose,Whole Blood 104 mg/dL (70-110)
[2025-01-01] MEDS ORDERED: CYCLOBENZAPRINE 10 MG TAB PO PRN (13:08)
[2025-01-01] MEDS ORDERED: SUMAtriptan succinate 25 MG TAB PO PRN (13:08)
--- NOTE | 2025-01-01 13:35 | XR ---
EXAMINATION TYPE: XR chest 1V portable DATE OF EXAM: 01/01/2025 1:21 PM COMPARISON: 08/11/2024 CLINICAL INDICATION: Female, 59 years old with history of chf, TECHNIQUE: XR chest 1V portable view(s) obtained. FINDINGS: The heart size is normal. The pulmonary vasculature is normal. Mild linear opacities at the right base. Correlate for atelectasis. Minimal increased lung markings a t the left base. Hiatal hernia is present. IMPRESSION: 1. Suggestion of mild atelectatic type changes. Clinical correlation recommended. 2. Hiatal hernia [facility], , 01/01/2025 1:33 PM
[2025-01-01] MEDS: METOPROLOL TARTRATE 25 MG TAB PO SCH (16:50)
[2025-01-01 17:15] LABS: Glucose,Whole Blood 124 mg/dL (70-110)
[2025-01-01] MEDS: LORATADINE 10 MG TAB PO SCH (21:45)
[2025-01-01] MEDS: PANTOPRAZOLE 40 MG TABLET PO SCH (21:45)
[2025-01-01] MEDS: MELATONIN 5 MG TABLET PO SCH (21:45)
[2025-01-01] MEDS: LOPERAMIDE 2 MG CAP PO PRN (21:46)
[2025-01-01] MEDS: rOPINIRole HCL 4 MG TABLET PO SCH (21:46)
[2025-01-01] MEDS: ONDANSETRON ODT 8 MG TAB.RAPDIS PO SCH (21:46)
--- NOTE | 2025-01-01 22:11 | P.CONS ---
History of Present Illness - Reason for Consult Consult date: 01/01/25 Patient known Requesting physician: August Martell - Chief Complaint Nausea vomiting and diarrhea x 7 days - History of Present Illness Patient is a 59-year-old female with multiple comorbidities including coronary disease fibromyalgia ADHD recent admission to the hospital for a left lower quadrant abscess status post surgical drainage treated with a course of IV Zosyn and subsequent oral antibiotic patient did have a follow-up CT abdominal pelvis on 12/30/2024 which shows overall resolution of the abscess patient now presenting to the hospital concerning for unable to get her ADHD medication that is Dexedrine refilled and patient be complaining of withdrawing with symptoms of nausea vomiting and diffuse body aches along with her diarrhea patient mention she has not eaten for the past 6 days and has been drinking only water and has been using Tylenol and Imodium for relief with the symptoms the patient has been evaluated on presentation to the hospital patient was afebrile she did have a low-grade fever of late 9.4 F patient was tachycardic not hypotensive or hypoxic no need for supplemental oxygen patient did have elevated white count 12 .84 with a creatinine of 0.88 liver enzymes mildly elevated urine has been positive stool for C. difficile negative influenza RSV COVID testing negative patient did have a chest x-ray suggestive of mild atelectatic changes and hiatal hernia infectious disease was consulted patient known Review of Systems Positive point and negatives has been mentioned in the HPI, complete review of systems was performed and all other systems are negative Past Medical History Past Medical History: Coronary Artery Disease (CAD), Chest Pain / Angina, Fibromyalgia, Musculoskeletal Disorder, Renal Disease Additional Past Medical History / Comment(s): Migraines, Shrgren syndrome, DDD, MS,. 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 Source:: URINE Past Surgical History: Appendectomy, Hysterectomy, Orthopedic Surgery Additional Past Surgical History / Comment(s): right ankle, abdominal laparo scopies, Presacral Neurectomy, Cryosurgery. abdominal abcess removal Past Anesthesia/Blood Transfusion Reactions: No Reported Reaction Past Psychological History: No Psychological Hx Reported Additional Psychological History / Comment(s): Pt resides alone. She uses a cane to ambulate. Smoking Status: Never smoker Past Alcohol Use History: None Reported Additional Past Alcohol Use History / Comment(s): Patient has been a nonsmoker, no marijuana or illicit drug use, no alcohol use. Patient is single. Past Drug Use History: None Reported - Past Family History Father Family Medical History: AICD/Pacemaker, Congestive Heart Failure (CHF), COPD, Diabetes Mellitus, Myocardial Infarction ([place]) Additional Family Medical History / Comment(s): Father at age 83 in his sleep. He has history of AICD. Mother Family Medical History: Hypertension Additional Family Medical History / Comment(s): Mother is alive at age 77 with history of hypertension and bronchiectasis. Patient has 2 brothers with no major medical problems. Patient does not have any sisters. Patient is one daughter with no major medical problems. Medications and Allergies Home Medications Medication Instructions Recorded Confirmed Type rOPINIRole HCL [Requip] 10 mg PO HS 09/27/17 01/01/25 History Dextroamphetamine Sulfate 15 mg PO BID 12/20/18 01/01/25 History [Dexedrine] Cetirizine HCl 10 mg PO HS 03/23/21 01/01/25 History Diclofenac Sodium Gel [Voltaren 1% 2 gm TOPICAL BID PRN 03/23/21 01/01/25 History Gel] Pantoprazole Sodium [Protonix] 40 mg PO BID 09/02/22 01/01/25 History Ascorbic Acid [Vitamin C] 1,000 mg PO DAILY 08/12/24 01/01/25 History Cyclobenzaprine [Flexeril] 10 mg PO TID PRN 08/12/24 01/01/25 History Melatonin 20 mg PO HS 08/12/24 01/01/25 History Prebiotic/Probiotic 1 cap PO DAILY 08/12/24 01/01/25 History amLODIPine [Norvasc] 5 mg PO DAILY #30 tab 08/19/24 01/01/25 Rx Multivitamins, Thera [Multivitamin 1 tab PO DAILY 12/02/24 01/01/25 History (formulary)] Potassium Chloride ER [K-Dur 20] 20 meq PO DAILY 12/02/24 01/01/25 History ondansetron HCL [Zofran] 8 mg PO BID 12/02/24 01/01/25 History Ferrous Sulfate [Iron (65 MG 325 mg PO W/LUNCH 30 Days #30 tab 12/07/24 01/01/25 Rx Elemental)] Amoxic-Pot Clav 875-125Mg 1 tab PO Q12HR 01/01/25 01/01/25 History [Augmentin 875-125] Metoprolol Tartrate [Lopressor] 25 mg PO DAILY 01/01/25 01/01/25 History QUEtiapine FUMARATE [SEROquel] 25 mg PO HS 01/01/25 01/01/25 History SUMAtriptan succinate [Imitrex] 25 mg PO TID PRN 01/01/25 01/01/25 History Allergies Allergy/AdvReac Type Severity Reaction Status Date / Time Sulfa (Sulfonamide Allergy Swelling Verified 01/01/25 07:42 Antibiotics) aspirin AdvReac Abdominal Verified 01/01/25 07:42 Pain hydralazine AdvReac Rapid Verified 01/01/25 07:42 Heart Rate Physical Exam Vitals: Vital Signs Temp Pulse Pulse Resp BP BP BP 01/01/25 07:09 117 H 20 108/61 01/01/25 06:46 122 H 01/01/25 05:40 98.5 F 114 H 18 103/64 01/01/25 00:56 99.4 F 124 H 17 133/69 12/31/24 23:30 98.1 F 106 H 19 131/73 12/31/24 23:28 18 131/73 12/31/24 21:29 78 18 105/83 12/31/24 19:43 76 18 142/76 12/31/24 16:31 98.5 F 107 H 20 92/62 Pulse Ox 01/01/25 07:09 93 L 01/01/25 06:46 01/01/25 05:40 93 L 01/01/25 00:56 91 L 12/31/24 23:30 97 12/31/24 23:28 97 12/31/24 21:29 98 12/31/24 19:43 98 12/31/24 16:31 97 Intake and Output 12/31/24 01/01/25 01/01/25 22:59 06:59 14:59 Intake Total 600 Balance 600 Intake: Oral 600 Other: Voiding Method Toilet # Voids 1 Weight 63.503 kg 63.503 kg GENERAL DESCRIPTION: Middle-age female lying in bed, no distress. No tachypnea or accessory muscle of respiration use. HEENT: Shows Pallor , no scleral icterus. Oral mucous membrane is dry. No pharyngeal erythema or thrush NECK: Trachea central, no thyromegaly. LUNGS: Unlabored breathing. Clear to auscultation anteriorly. No wheeze or crackle. HEART: S1, S2, regular rate and rhythm. No loud murmur ABDOMEN: Soft, no tenderness left lower quadrant abdominal wound has decreased in size with no surrounding redness minimal drainage on the dressing EXTREMITIES: No edema of feet. SKIN: No rash, no masses palpable. NEUROLOGICAL: The patient is awake, alert, oriented x3, mood and affect normal. Results CBC & Chem 7: 01/02/25 05:59 01/02/25 05:59 Labs: Abnormal Lab Results - Last 24 Hours (Table) 12/31/24 12/31/24 12/31/24 Range/Units 19:06 19:06 19:51 WBC 12.84 H (4.50-10.00) 10*3/uL RBC 3.98 L (4.10-5.20) 10*6/uL Hgb 10.4 L (12.0-15.0) g/dL Hct 34.7 L (37.2-46.3) % MCH 26.1 L (27.0-32.0) pg MCHC 30.0 L (32.0-37.0) g/dL Plt Count 618 H (140-440) 10*3/uL MPV 8.6 L (9.5-12.2) fL Immature Gran # 0.05 H (0.00-0.04) 10*3/uL Neutrophils # 10.02 H (1.80-7.70) 10*3/uL Monocytes # 1.11 H (0.20-1.00) 10*3/uL Chloride (98-107) mmol/L Carbon Dioxide 14 L (22-30) mmol/L BUN (7-17) mg/dL Calcium 11.5 H (8.4-10.2) mg/dL Magnesium (1.6-2.3) mg/dL AST 46 H (14-36) U/L ALT 40 H (4-34) U/L Alkaline Phosphatase 141 H (38-126) U/L Total Protein (6.3-8.2) g/dL Albumin (3.5-5.0) g/dL Urine Appearance Cloudy H (Clear) Urine Protein 1+ H (Negative) Urine Ketones 4+ H (Negative) Urine Blood Trace H (Negative) Urine Bilirubin 1+ H (Negative) Ur Leukocyte Esterase Large H (Negative) Urine RBC 27 H (0-5) /hpf Urine WBC 87 H (0-5) /hpf Urine WBC Clumps Occasional H (None) /hpf Ur Squamous Epith Cells 6 H (0-4) /hpf Urine Bacteria Rare H (None) /hpf Urine Mucus Rare H (None) /hpf 01/01/25 01/01/25 Range/Units 05:32 05:32 WBC (4.50-10.00) 10*3/uL RBC 3.51 L (4.10-5.20) 10*6/uL Hgb 9.0 L (12.0-15.0) g/dL Hct 30.8 L (37.2-46.3) % MCH 25.6 L (27.0-32.0) pg MCHC 29.2 L (32.0-37.0) g/dL Plt Count 564 H (140-440) 10*3/uL MPV 8.7 L (9.5-12.2) fL Immature Gran # (0.00-0.04) 10*3/uL Neutrophils # (1.80-7.70) 10*3/uL Monocytes # (0.20-1.00) 10*3/uL Chloride 109 H (98-107) mmol/L Carbon Dioxide 12 L (22-30) mmol/L BUN 6 L (7-17) mg/dL Calcium 11.0 H (8.4-10.2) mg/dL Magnesium 1.5 L (1.6-2.3) mg/dL AST (14-36) U/L ALT (4-34) U/L Alkaline Phosphatase (38-126) U/L Total Protein 5.5 L (6.3-8.2) g/dL Albumin 3.0 L (3.5-5.0) g/dL Urine Appearance (Clear) Urine Protein (Negative) Urine Ketones (Negative) Urine Blood (Negative) Urine Bilirubin (Negative) Ur Leukocyte Esterase (Negative) Urine RBC (0-5) /hpf Urine WBC (0-5) /hpf Urine WBC Clumps (None) /hpf Ur Squamous Epith Cells (0-4) /hpf Urine Bacteria (None) /hpf Urine Mucus (None) /hpf Assessment and Plan (1) Leukocytosis Current Visit: No Status: Acute Code(s): D72.829 - ELEVATED WHITE BLOOD CELL COUNT, UNSPECIFIED SNOMED Code(s): 469210612 Plan: 1patient presented hospital with acute nausea vomiting and diarrhea. Patient did have history of left lower quadrant abscess likely diverticular abscess status post open drainage for the patient has completed course of IV Zosyn and was on oral Augmentin in the present hospital nausea vomiting and diarrhea with a question of withdrawal from her ADHD medication there was concern for possible C. difficile however that has been ruled out. 2patient did have lower quadrant abdominal wound which seems to be healing with no slough tissue or any purulent drainage recommend packing the wound with a dry Aquacel dressing change daily 3for now continue with the Zosyn while waiting for the GI symptoms to resolve before transition to oral antibiotics We will follow on clinical condition and cultures to further adjust medication if needed Thank you for this consultation we will follow the patient along with you Dictation was produced using [employer] dictation software. please excuse any grammatical, word or spelling errors. Time with Patient: Greater than 30
[2025-01-02] MEDS: QUEtiapine 25 MG TAB PO SCH (03:52)
[2025-01-02 08:35] LABS: ALT 28 U/L (8-44); AST 33 U/L (13-35); Albumin 3.2 g/dL (3.8-4.9); Albumin/Globulin Ratio 1.45 Ratio (1.60-3.17); Alkaline Phosphatase 109 U/L (41-126); BUN/Creat Ratio 7.67 Ratio (12.00-20.00); Blood Urea Nitrogen 4.6 mg/dL (9.0-27.0); Calcium 10.5 mg/dL (8.7-10.3); Carbon Dioxide 19.5 mmol/L (21.6-31.8); Chloride 109 mmol/L (96-109); Globulin 2.2 g/dL (1.6-3.3); Glucose 119 mg/dL (70-110); Potassium 3.8 mmol/L (3.5-5.5); Sodium 138 mmol/L (135-145); Total Bilirubin <0.2 mg/dL (0.3-1.2); Total Protein 5.4 g/dL (6.2-8.2)
[2025-01-02] MEDS: amLODIPine 5 MG TAB PO SCH (08:43)
[2025-01-02] MEDS: LACTOBACILLUS ACIDOPHILUS/PECT 1 EACH CAPSULE PO SCH (08:44)
[2025-01-02] MEDS: ASCORBIC ACID 500 MG TAB PO SCH (08:44)
[2025-01-02] MEDS: MULTIVITAMINS, THERA 1 EACH TAB PO SCH (08:45)
[2025-01-02] MEDS: POTASSIUM CHLORIDE ER 20 MEQ TAB.ER PO SCH (08:46)
[2025-01-02 08:52] LABS: Basophils # (A) 0.04 X 10*3/uL (0.00-0.10); Basophils % (A) 0.6 %; Eosinophils # (A) 0.24 X 10*3/uL (0.04-0.35); Eosinophils % (A) 3.6 %; HCT 28.4 % (37.2-46.3); HGB 8.7 g/dL (12.0-15.0); Lymphocytes # (A) 1.19 X 10*3/uL (0.90-5.00); Lymphocytes % (A) 17.8 %; MCH 26.6 pg (27.0-32.0); MCHC 30.6 g/dL (32.0-37.0); MCV 86.9 FL (80.0-97.0); Mean Platelet Volume 9.3 FL (9.5-12.2); Monocytes # (A) 0.72 X 10*3/uL (0.20-1.00); Monocytes % (A) 10.8 %; NRBC Per 100 WBC 0 X 10*3/uL (0.00-0.01); Neutrophils # (A) 4.46 X 10*3/uL (1.80-7.70); Neutrophils % (A) 66.9 %; Platelet Count 513 X 10*3/uL (140-440); RBC 3.27 X 10*6/uL (4.10-5.20); RDW 16.6 % (11.5-14.5); WBC 6.67 X 10*3/uL (4.50-10.00)
[2025-01-02] MEDS: ONDANSETRON 4 MG/2 ML VIAL IVP PRN (09:58)
[2025-01-02] MEDS: METOCLOPRAMIDE 5 MG/ML 2 ML VIAL IVP PRN (13:06)
--- NOTE | 2025-01-02 13:06 | P.GSCN ---
History of Present Illness Consult date: 01/02/25 History of present illness: CHIEF COMPLAINT: Nausea vomiting and diarrhea HISTORY OF PRESENT ILLNESS: This is a 59-year-old female who presented the hospital with complaints of nausea vomiting and diarrhea. She has been without her ADHD medication. Apparently she could not find a pharmacy to fill it. Patient was vomiting this morning. Patient with a known history of a hiatal hernia, multiple sclerosis and coronary artery disease. Patient had recent left inguinal abscess with incision and drainage on 12/03/2024. She had a repeat CAT scan outpatient on December 30 that had reported postsurgical changes in the left lower quadrant anterior abdominal wall with significantly improving soft tissue gas compared to prior study on 11/27/2024. No residual drainable fluid collection or abscess noted. Patient diarrhea is improving. Stools are more formed. Stool for C. difficile was negative. PAST MEDICAL HISTORY: Coronary Artery Disease (CAD), Chest Pain / Angina, Fibromyalgia, Musculoskeletal Disorder, Renal Disease, Migraines, Shrgren syndrome, DDD, MS,. Right BBB, CKD, Tarsal tunnel syndrome, vertigo PAST SURGICAL HISTORY: See below MEDICATIONS: See below ALLERGIES: See below SOCIAL HISTORY: No illicit drug use. REVIEW OF SYSTEMS: CONSTITUTIONAL: Denies fever or chills. HEENT: Denies blurred vision, vision changes, or eye pain. Denies hemoptysis CARDIOVASCULAR: Denies chest pain or pressure. RESPIRATORY: No shortness of breath. GASTROINTESTINAL: See HPI for pertinent findings HEMATOLOGIC: Denies bleeding disorders. GENITOURINARY: Denies any blood in urine or increased urinary frequency. SKIN: Denies pruitis. Denies rash. PHYSICAL EXAM: VITAL SIGNS: Reviewed GENERAL: Well-developed in no acute distress. HEENT: No sclera icterus. Extraocular movements grossly intact. Moist buccal mucosa. Head is atraumatic, normocephalic. No nasal drainage. ABDOMEN: Soft. Nondistended. Nontender NEUROLOGIC: Alert and oriented. Cranial nerves II through XII grossly intact. LABORATORY DATA: WBC 6.67 Hgb 8.7 platelets 513 Stool for C. difficile negative IMAGING: ASSESSMENT: 1. Nausea, vomiting and diarrhea possibly related to withdrawal symptoms from being without ADHD medication 2. Left inguinal abscess status post incision and drainage. Wound is healing with improvement on last CAT scan. No fluid collection reported. PLAN: - No surgical intervention planned - Continue clear liquid diet - Continue supportive care - Continue antiemetics Physician Emergency Vehicle Driver note has been reviewed by physician. Signing provider agrees with the documented findings, assessment, and plan of care. Past Medical History Past Medical History: Coronary Artery Disease (CAD), Chest Pain / Angina, Fibromyalgia, Musculoskeletal Disorder, Renal Disease Additional Past Medical History / Comment(s): Migraines, Shrgren syndrome, DDD, MS,. 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 Source:: URINE Past Surgical History: Appendectomy, Hysterectomy, Orthopedic Surgery Additional Past Surgical History / Comment(s): right ankle, abdominal laparosc opies, Presacral Neurectomy, Cryosurgery. abdominal abcess removal Past Anesthesia/Blood Transfusion Reactions: No Reported Reaction Past Psychological History: No Psychological Hx Reported Additional Psychological History / Comment(s): Pt resides alone. She uses a cane to ambulate. Smoking Status: Never smoker Past Alcohol Use History: None Reported Additional Past Alcohol Use History / Comment(s): Patient has been a nonsmoker, no marijuana or illicit drug use, no alcohol use. Patient is single. Past Drug Use History: None Reported - Past Family History Father Family Medical History: AICD/Pacemaker, Congestive Heart Failure (CHF), COPD, Diabetes Mellitus, Myocardial Infarction ([place]) Additional Family Medical History / Comment(s): Father at age 83 in his sleep. He has history of AICD. Mother Family Medical History: Hypertension Additional Family Medical History / Comment(s): Mother is alive at age 77 with history of hypertension and bronchiectasis. Patient has 2 brothers with no major medical problems. Patient does not have any sisters. Patient is one daughter with no major medical problems. Medications and Allergies Home Medications Medication Instructions Recorded Confirmed Type rOPINIRole HCL [Requip] 10 mg PO HS 09/27/17 01/01/25 History Dextroamphetamine Sulfate 15 mg PO BID 12/20/18 01/01/25 History [Dexedrine] Cetirizine HCl 10 mg PO HS 03/23/21 01/01/25 History Diclofenac Sodium Gel [Voltaren 1% 2 gm TOPICAL BID PRN 03/23/21 01/01/25 History Gel] Pantoprazole Sodium [Protonix] 40 mg PO BID 09/02/22 01/01/25 History Ascorbic Acid [Vitamin C] 1,000 mg PO DAILY 08/12/24 01/01/25 History Cyclobenzaprine [Flexeril] 10 mg PO TID PRN 08/12/24 01/01/25 History Melatonin 20 mg PO HS 08/12/24 01/01/25 History Prebiotic/Probiotic 1 cap PO DAILY 08/12/24 01/01/25 History amLODIPine [Norvasc] 5 mg PO DAILY #30 tab 08/19/24 01/01/25 Rx Multivitamins, Thera [Multivitamin 1 tab PO DAILY 12/02/24 01/01/25 History (formulary)] Potassium Chloride ER [K-Dur 20] 20 meq PO DAILY 12/02/24 01/01/25 History ondansetron HCL [Zofran] 8 mg PO BID 12/02/24 01/01/25 History Ferrous Sulfate [Iron (65 MG 325 mg PO W/LUNCH 30 Days #30 tab 12/07/24 01/01/25 Rx Elemental)] Amoxic-Pot Clav 875-125Mg 1 tab PO Q12HR 01/01/25 01/01/25 History [Augmentin 875-125] Metoprolol Tartrate [Lopressor] 25 mg PO DAILY 01/01/25 01/01/25 History QUEtiapine FUMARATE [SEROquel] 25 mg PO HS 01/01/25 01/01/25 History SUMAtriptan succinate [Imitrex] 25 mg PO TID PRN 01/01/25 01/01/25 History Allergies Allergy/AdvReac Type Severity Reaction Status Date / Time Sulfa (Sulfonamide Allergy Swelling Verified 01/01/25 07:42 Antibiotics) aspirin AdvReac Abdominal Verified 01/01/25 07:42 Pain hydralazine AdvReac Rapid Verified 01/01/25 07:42 Heart Rate Surgical - Exam Vital Signs Temp Pulse Resp BP Pulse Ox 98.5 F 107 H 20 92/62 97 12/31/24 16:31 12/31/24 16:31 12/31/24 16:31 12/31/24 16:31 12/31/24 16:31 Results - Labs 01/02/25 05:59 01/02/25 05:59 Abnormal Lab Results - Last 24 Hours (Table) 01/01/25 01/02/25 01/02/25 Range/Units 17:13 05:59 05:59 RBC 3.27 L (4.10-5.20) X 10*6/uL Hgb 8.7 L (12.0-15.0) g/dL Hct 28.4 L (37.2-46.3) % MCH 26.6 L (27.0-32.0) pg MCHC 30.6 L (32.0-37.0) g/dL RDW 16.6 H (11.5-14.5) % Plt Count 513 H (140-440) X 10*3/uL MPV 9.3 L (9.5-12.2) FL Carbon Dioxide 19.5 L (21.6-31.8) mmol/L BUN 4.6 L (9.0-27.0) mg/dL BUN/Creatinine Ratio 7.67 L (12.00-20.00) Ratio Glucose 119 H (70-110) mg/dL POC Glucose (mg/dL) 124 H (70-110) mg/dL Calcium 10.5 H (8.7-10.3) mg/dL Total Bilirubin <0.2 L (0.3-1.2) mg/dL Total Protein 5.4 L (6.2-8.2) g/dL Albumin 3.2 L (3.8-4.9) g/dL Albumin/Globulin Ratio 1.45 L (1.60-3.17) Ratio Microbiology - Last 24 Hours (Table) 12/31/24 19:51 Urine Culture - Final Urine,Voided Shalonda albicans Diabetes panel 01/02/25 Range/Units 05:59 Sodium 138 (135-145) mmol/L Potassium 3.8 (3.5-5.5) mmol/L Chloride 109 (96-109) mmol/L Carbon Dioxide 19.5 L (21.6-31.8) mmol/L BUN 4.6 L (9.0-27.0) mg/dL Creatinine 0.6 (0.6-1.5) mg/dL Glucose 119 H (70-110) mg/dL Calcium 10.5 H (8.7-10.3) mg/dL AST 33 (13-35) U/L ALT 28 (8-44) U/L Alkaline Phosphatase 109 (41-126) U/L Total Protein 5.4 L (6.2-8.2) g/dL Albumin 3.2 L (3.8-4.9) g/dL Calcium panel 01/02/25 Range/Units 05:59 Calcium 10.5 H (8.7-10.3) mg/dL Albumin 3.2 L (3.8-4.9) g/dL Pituitary panel 01/02/25 Range/Units 05:59 Sodium 138 (135-145) mmol/L Potassium 3.8 (3.5-5.5) mmol/L Chloride 109 (96-109) mmol/L Carbon Dioxide 19.5 L (21.6-31.8) mmol/L BUN 4.6 L (9.0-27.0) mg/dL Creatinine 0.6 (0.6-1.5) mg/dL Glucose 119 H (70-110) mg/dL Calcium 10.5 H (8.7-10.3) mg/dL Adrenal panel 01/02/25 Range/Units 05:59 Sodium 138 (135-145) mmol/L Potassium 3.8 (3.5-5.5) mmol/L Chloride 109 (96-109) mmol/L Carbon Dioxide 19.5 L (21.6-31.8) mmol/L BUN 4.6 L (9.0-27.0) mg/dL Creatinine 0.6 (0.6-1.5) mg/dL Glucose 119 H (70-110) mg/dL Calcium 10.5 H (8.7-10.3) mg/dL Total Bilirubin <0.2 L (0.3-1.2) mg/dL AST 33 (13-35) U/L ALT 28 (8-44) U/L Alkaline Phosphatase 109 (41-126) U/L Total Protein 5.4 L (6.2-8.2) g/dL Albumin 3.2 L (3.8-4.9) g/dL
--- NOTE | 2025-01-02 13:19 | P.PN ---
Subjective Progress Note Date: 01/02/25 Principal diagnosis: Reason for follow-up is nausea vomiting diarrhea Patient is a 59-year-old female with multiple comorbidities including coronary disease fibromyalgia ADHD recent admission to the hospital for a left lower quadrant abscess status post surgical drainage treated with a course of IV Zosyn and subsequent oral antibiotic patient did have a follow-up CT abdominal pelvis on 12/30/2024 which shows overall resolution of the abscess patient now presenting to the hospital concerning for nausea vomiting and diarrhea and concern for possible withdrawal from her ADHD medication. On today's evaluation that is 01/02/2025,the patient remains to be afebrile, pa joy is on room air not requiring supplemental oxygen and denies any shortness of breath no chest pain or cough.Patient still complains of some nausea but no vomiting diarrhea abdominal pain has improved. Patient did have white count of 6.67, creatinine 0.6 stool for C. difficile is negative urine is growing Shalonda Objective - Vital Signs Vital signs: Vital Signs Temp 97.9 F 01/02/25 06:58 Pulse 104 H 01/02/25 06:58 Resp 18 01/02/25 06:58 BP 100/68 01/02/25 06:58 Pulse Ox 98 01/02/25 06:58 FiO2 Intake & Output 01/01/25 01/02/25 01/02/25 18:59 06:59 18:59 Other: Voiding Method Toilet Toilet Bedside Commode # Voids 1 1 # Bowel Movements 1 - Exam GENERAL DESCRIPTION: Middle-age female lying in bed in no distress RESPIRATORY SYSTEM: Unlabored breathing , decreased breath sounds at bases HEART: S1 S2 regular rate and rhythm , ABDOMEN: Soft , no tenderness EXTREMITIES: No edema feet - Labs CBC & Chem 7: 01/02/25 05:59 01/02/25 05:59 Labs: Abnormal Lab Results - Last 24 Hours (Table) 01/01/25 01/02/25 01/02/25 Range/Units 17:13 05:59 05:59 RBC 3.27 L (4.10-5.20) X 10*6/uL Hgb 8.7 L (12.0-15.0) g/dL Hct 28.4 L (37.2-46.3) % MCH 26.6 L (27.0-32.0) pg MCHC 30.6 L (32.0-37.0) g/dL RDW 16.6 H (11.5-14.5) % Plt Count 513 H (140-440) X 10*3/uL MPV 9.3 L (9.5-12.2) FL Carbon Dioxide 19.5 L (21.6-31.8) mmol/L BUN 4.6 L (9.0-27.0) mg/dL BUN/Creatinine Ratio 7.67 L (12.00-20.00) Ratio Glucose 119 H (70-110) mg/dL POC Glucose (mg/dL) 124 H (70-110) mg/dL Calcium 10.5 H (8.7-10.3) mg/dL Total Bilirubin <0.2 L (0.3-1.2) mg/dL Total Protein 5.4 L (6.2-8.2) g/dL Albumin 3.2 L (3.8-4.9) g/dL Albumin/Globulin Ratio 1.45 L (1.60-3.17) Ratio Microbiology - Last 24 Hours (Table) 12/31/24 19:51 Urine Culture - Final Urine,Voided Shalonda albicans Assessment and Plan (1) Leukocytosis Current Visit: No Status: Acute Code(s): D72.829 - ELEVATED WHITE BLOOD CELL COUNT, UNSPECIFIED SNOMED Code(s): 088550381 (2) Gastroenteritis Current Visit: Yes Status: Acute Code(s): K52.9 - NONINFECTIVE GASTROENTERITIS AND COLITIS, UNSPECIFIED SNOMED Code(s): 85611326 Plan: 1patient presented hospital with acute nausea vomiting and diarrhea. Patient did have history of left lower quadrant abscess likely diverticular abscess status post open drainage for the patient has completed course of IV Zosyn and was on oral Augmentin in the present hospital nausea vomiting and diarrhea with a question of withdrawal from her ADHD medication there was concern for possible C. difficile however that has been ruled out. 2patient did have lower quadrant abdominal wound which seems to be healing with no slough tissue or any purulent drainage recommend packing the wound with a dry Aquacel dressing change daily 3patient did have normalization of the white count, urine culture with Shalonda however the patient did not have any urinary symptoms on Zosyn can be discontinued on discharge Dictation was produced using dragon dictation software. please excuse any grammatical, word or spelling errors. Time with Patient: Less than 30
--- NOTE | 2025-01-02 13:44 | PN ---
PROGRESS NOTE DATE OF SERVICE: 01/02/2025 SUBJECTIVE: This is a 59-year-old woman who was admitted with nausea, vomiting, diarrhea, possible acute gastroenteritis, also had recent abdominal wall abscess. The patient is improving slightly. No chest pain. No palpitation. Some mild atelectasis noted. The patient apparently refused a repeat CAT scan. PHYSICAL EXAMINATION: VITAL SIGNS: Pulse is 94, blood pressure 93/60, and respirations 16. CHEST: A few scattered rhonchi. ABDOMEN: Soft, mild diffuse discomfort. LEGS: No edema. NERVOUS SYSTEM: No focal deficit. LABORATORY DATA: C diff is negative. UA noted. ASSESSMENT: 1. Nausea, vomiting, diarrhea, possible acute gastroenteritis. 2. Rule out sepsis. 3. C diff ruled out. 4. Possible acute urinary tract infection. 5. History of recent abdominal wall abscess, which is polymicrobial cleopatra including E coli, Klebsiella and Proteus. 6. History of fibromyalgia. 7. History of extended spectrum beta-lactamase. 8. History of appendectomy and hysterectomy. 9. Candidal urinary tract infection. RECOMMENDATIONS AND DISCUSSION: Recommend to continue current management and continue symptomatic treatment. Otherwise, closely follow with Infectious Disease. The patient is empirically started on Zosyn. Cultures are showing Shalonda albicans. I would add Diflucan to the current regimen. Guarded prognosis. Further recommendations to follow. MMODL / IJN: [id number] /
[2025-01-02] MEDS: FERROUS SULFATE 325 MG TAB PO SCH (14:17)
[2025-01-02] MEDS: FLUCONAZOLE 100 MG TAB PO ONE (14:18)
[2025-01-03] MEDS: FLUCONAZOLE 100 MG TAB PO SCH (09:49)
[2025-01-03 10:12] LABS: Basophils # (A) 0.05 X 10*3/uL (0.00-0.10); Basophils % (A) 1.1 %; Eosinophils % (A) 6.3 %; HCT 28.5 % (37.2-46.3); HGB 8.4 g/dL (12.0-15.0); Lymphocytes # (A) 1.28 X 10*3/uL (0.90-5.00); Lymphocytes % (A) 26.9 %; MCH 25.6 pg (27.0-32.0); MCHC 29.5 g/dL (32.0-37.0); MCV 86.9 FL (80.0-97.0); Mean Platelet Volume 9.2 FL (9.5-12.2); Monocytes # (A) 0.53 X 10*3/uL (0.20-1.00); Monocytes % (A) 11.2 %; NRBC Per 100 WBC 0 X 10*3/uL (0.00-0.01); Neutrophils # (A) 2.56 X 10*3/uL (1.80-7.70); Neutrophils % (A) 53.9 %; Platelet Count 533 X 10*3/uL (140-440); RBC 3.28 X 10*6/uL (4.10-5.20); RDW 16.6 % (11.5-14.5); WBC 4.75 X 10*3/uL (4.50-10.00)
--- NOTE | 2025-01-03 10:19 | P.PN ---
Subjective Progress Note Date: 01/03/25 Patient feels well. Her nausea is improved. On exam vital signs appear stable. Abdomen soft. Patient nausea is a proved. She is stable for discharge from surgical standpoint. Objective - Vital Signs Vital signs: Vital Signs Temp 98.4 F 01/03/25 07:51 Pulse 107 H 01/03/25 07:51 Resp 18 01/03/25 07:51 BP 124/79 01/03/25 07:51 Pulse Ox 93 L 01/03/25 07:51 FiO2 Intake & Output 01/02/25 01/03/25 01/03/25 18:59 06:59 18:59 Intake Total 815 Balance 815 Intake: Intake, IV Titration 815 Amount Dextrose 5%-0.45% NaCl 1, 715 000 ml @ 65 mls/hr IV . [id number] [facility] Rx#:[id number] Piperacillin-Tazobactam 3 100 .375 gm In Sodium Chloride 0.9% 100 ml @ 25 mls/hr IVPB Q8H [facility] Rx#: [id number] Other: Voiding Method Bedside Commode Bedside Commode # Voids 4 3 # Bowel Movements 1 - Labs CBC & Chem 7: 01/03/25 06:29 01/02/25 05:59 Labs: Abnormal Lab Results - Last 24 Hours (Table) 01/03/25 Range/Units 06:29 RBC 3.28 L (4.10-5.20) X 10*6/uL Hgb 8.4 L (12.0-15.0) g/dL Hct 28.5 L (37.2-46.3) % MCH 25.6 L (27.0-32.0) pg MCHC 29.5 L (32.0-37.0) g/dL RDW 16.6 H (11.5-14.5) % Plt Count 533 H (140-440) X 10*3/uL MPV 9.2 L (9.5-12.2) FL Microbiology - Last 24 Hours (Table) 01/01/25 10:53 Blood Culture - Preliminary Blood
[2025-01-03 11:12] LABS: ALT 22 U/L (8-44); AST 25 U/L (13-35); Alkaline Phosphatase 106 U/L (41-126); BUN/Creat Ratio <5.00 Ratio (12.00-20.00); Blood Urea Nitrogen <3.5 mg/dL (9.0-27.0); Calcium 10.3 mg/dL (8.7-10.3); Carbon Dioxide 21.3 mmol/L (21.6-31.8); Chloride 107 mmol/L (96-109); Glucose 108 mg/dL (70-110); Potassium 3.7 mmol/L (3.5-5.5); Sodium 140 mmol/L (135-145); Total Bilirubin <0.2 mg/dL (0.3-1.2)
--- NOTE | 2025-01-03 16:04 | P.PN ---
Subjective Progress Note Date: 01/03/25 Principal diagnosis: Reason for follow-up is nausea vomiting diarrhea Patient is a 59-year-old female with multiple comorbidities including coronary disease fibromyalgia ADHD recent admission to the hospital for a left lower quadrant abscess status post surgical drainage treated with a course of IV Zosyn and subsequent oral antibiotic patient did have a follow-up CT abdominal pelvis on 12/30/2024 which shows overall resolution of the abscess patient now presenting to the hospital concerning for nausea vomiting and diarrhea and concern for possible withdrawal from her ADHD medication. On today's evaluation that is 01/03/2025, the patient continues to be afebrile, the patient is on room air and breathing comfortably, the Pt denies having any chest pain or cough, the patient denies having any abdominal pain did have an episode vomiting this morning denies any further diarrhea. Patient white count is 4.75, creatinine 0.7 urine is growing Shalonda blood culture negative Objective - Vital Signs Vital signs: Vital Signs Temp 98.3 F 01/03/25 13:05 Pulse 90 01/03/25 13:05 Resp 17 01/03/25 13:05 BP 123/79 01/03/25 13:05 Pulse Ox 93 L 01/03/25 13:05 FiO2 Intake & Output 01/02/25 01/03/25 01/03/25 18:59 06:59 18:59 Intake Total 815 Balance 815 Intake: Intake, IV Titration 815 Amount Dextrose 5%-0.45% NaCl 1, 715 000 ml @ 65 mls/hr IV . [id number] [facility] Rx#:[id number] Piperacillin-Tazobactam 3 100 .375 gm In Sodium Chloride 0.9% 100 ml @ 25 mls/hr IVPB Q8H [facility] Rx#: [id number] Other: Voiding Method Bedside Commode Bedside Commode # Voids 4 3 # Bowel Movements 1 - Exam GENERAL DESCRIPTION: Middle-age female lying in bed in no distress RESPIRATORY SYSTEM: Unlabored breathing , decreased breath sounds at bases HEART: S1 S2 regular rate and rhythm , ABDOMEN: Soft , no tenderness EXTREMITIES: No edema feet - Labs CBC & Chem 7: 01/03/25 06:29 01/03/25 06:29 Labs: Abnormal Lab Results - Last 24 Hours (Table) 01/03/25 01/03/25 Range/Units 06:29 06:29 RBC 3.28 L (4.10-5.20) X 10*6/uL Hgb 8.4 L (12.0-15.0) g/dL Hct 28.5 L (37.2-46.3) % MCH 25.6 L (27.0-32.0) pg MCHC 29.5 L (32.0-37.0) g/dL RDW 16.6 H (11.5-14.5) % Plt Count 533 H (140-440) X 10*3/uL MPV 9.2 L (9.5-12.2) FL Carbon Dioxide 21.3 L (21.6-31.8) mmol/L BUN <3.5 L (9.0-27.0) mg/dL BUN/Creatinine Ratio <5.00 L (12.00-20.00) Ratio Total Bilirubin <0.2 L (0.3-1.2) mg/dL Total Protein 5.0 L (6.2-8.2) g/dL Albumin 3.0 L (3.8-4.9) g/dL Albumin/Globulin Ratio 1.50 L (1.60-3.17) Ratio Microbiology - Last 24 Hours (Table) 01/01/25 10:53 Blood Culture - Preliminary Blood Assessment and Plan (1) Leukocytosis Current Visit: No Status: Acute Code(s): D72.829 - ELEVATED WHITE BLOOD CELL COUNT, UNSPECIFIED SNOMED Code(s): 732092395 (2) Gastroenteritis Current Visit: Yes Status: Acute Code(s): K52.9 - NONINFECTIVE G ASTROENTERITIS AND COLITIS, UNSPECIFIED SNOMED Code(s): 48698917 Plan: 1patient presented hospital with acute nausea vomiting and diarrhea. Patient did have history of left lower quadrant abscess likely diverticular abscess status post open drainage for the patient has completed course of IV Zosyn and was on oral Augmentin in the present hospital nausea vomiting and diarrhea with a question of withdrawal from her ADHD medication there was concern for possible C. difficile however that has been ruled out. 2patient did have lower quadrant abdominal wound which seems to be healing with no slough tissue or any purulent drainage recommend packing the wound with a dry Aquacel dressing change daily 3patient did have normalization of the white count, urine culture with Shalonda however the patient did not have any urinary symptoms, no need for Diflucan while in the Zosyn while inpatient however no need for IV antibiotics on discharge Dictation was produced using [employer] dictation software. please excuse any grammatical, word or spelling errors. Time with Patient: Less than 30
--- NOTE | 2025-01-04 10:08 | P.PN ---
Subjective Progress Note Date: 01/04/25 Patient was not discharged yesterday. She had an episode of emesis. Today patient feels better. On exam vital signs appear stable. Abdomen soft. Patient will be discharged home if she is able to tolerate diet today. Objective - Vital Signs Vital signs: Vital Signs Temp 98.3 F 01/04/25 08:00 Pulse 109 H 01/04/25 08:00 Resp 19 01/04/25 08:00 BP 151/87 01/04/25 08:00 Pulse Ox 92 L 01/04/25 08:00 FiO2 Intake & Output 01/03/25 01/04/25 01/04/25 18:59 06:59 18:59 Intake Total 780 Balance 780 Intake: Oral 780 Other: Voiding Method Bedside Commode # Voids 2 1 # Bowel Movements 1 - Labs CBC & Chem 7: 01/03/25 06:29 01/03/25 06:29 Labs: Abnormal Lab Results - Last 24 Hours (Table) 01/03/25 01/03/25 Range/Units 06:29 06:29 RBC 3.28 L (4.10-5.20) X 10*6/uL Hgb 8.4 L (12.0-15.0) g/dL Hct 28.5 L (37.2-46.3) % MCH 25.6 L (27.0-32.0) pg MCHC 29.5 L (32.0-37.0) g/dL RDW 16.6 H (11.5-14.5) % Plt Count 533 H (140-440) X 10*3/uL MPV 9.2 L (9.5-12.2) FL Carbon Dioxide 21.3 L (21.6-31.8) mmol/L BUN <3.5 L (9.0-27.0) mg/dL BUN/Creatinine Ratio <5.00 L (12.00-20.00) Ratio Total Bilirubin <0.2 L (0.3-1.2) mg/dL Total Protein 5.0 L (6.2-8.2) g/dL Albumin 3.0 L (3.8-4.9) g/dL Albumin/Globulin Ratio 1.50 L (1.60-3.17) Ratio Microbiology - Last 24 Hours (Table) 01/01/25 10:53 Blood Culture - Preliminary Blood
--- NOTE | 2025-01-04 14:30 | P.PN ---
Subjective Progress Note Date: 01/04/25 Principal diagnosis: Reason for follow-up is nausea vomiting diarrhea Patient is a 59-year-old female with multiple comorbidities including coronary disease fibromyalgia ADHD recent admission to the hospital for a left lower quadrant abscess status post surgical drainage treated with a course of IV Zosyn and subsequent oral antibiotic patient did have a follow-up CT abdominal pelvis on 12/30/2024 which shows overall resolution of the abscess patient now presenting to the hospital concerning for nausea vomiting and diarrhea and concern for possible withdrawal from her ADHD medication. On today's evaluation that is 01/05/2024, patient did have a temperature of 98 F this afternoon and denies having any chills, patient is on room air and breathing comfortably no chest pain or cough, the patient complaining of episode of vomiting experienced after taking her pill denies any abdominal pain and diarrhea has resolved. No new lab has been obtained today blood culture has been negative Objective - Vital Signs Vital signs: Vital Signs Temp 98 F 01/04/25 14:00 Pulse 86 01/04/25 14:00 Resp 19 01/04/25 14:00 BP 126/81 01/04/25 14:00 Pulse Ox 94 L 01/04/25 14:00 FiO2 Intake & Output 01/03/25 01/04/25 01/04/25 18:59 06:59 18:59 Intake Total 780 Balance 780 Intake: Oral 780 Other: Voiding Method Bedside Commode # Voids 2 1 # Bowel Movements 1 - Exam GENERAL DESCRIPTION: Middle-age female lying in bed in no distress RESPIRATORY SYSTEM: Unlabored breathing , decreased breath sounds at bases HEART: S1 S2 regular rate and rhythm , ABDOMEN: Soft , no tenderness EXTREMITIES: No edema feet - Labs CBC & Chem 7: 01/03/25 06:29 01/03/25 06:29 Labs: Microbiology - Last 24 Hours (Table) 01/01/25 10:53 Blood Culture - Preliminary Blood Assessment and Plan (1) Leukocytosis Current Visit: No Status: Acute Code(s): D72.829 - ELEVATED WHITE BLOOD CELL COUNT, UNSPECIFIED SNOMED Code(s): 544434828 (2) Gastroenteritis Current Visit: Yes Status: Acute Code(s): K52.9 - NONINFECTIVE GASTROENTERITIS AND COLITIS, UNSPECIFIED SNOMED Code(s): 32664882 Plan: 1patient presented hospital with acute nausea vomiting and diarrhea. Patient did have history of left lower quadrant abscess likely diverticular abscess status post open drainage for the patient has completed course of IV Zosyn and was on oral Augmentin in the present hospital nausea vomiting and diarrhea with a question of withdrawal from her ADHD medication there was concern for possible C. difficile however that has been ruled out. 2patient did have lower quadrant abdominal wound which seems to be healing with no slough tissue or any purulent drainage recommend packing the wound with a dry Aquacel dressing change daily 3patient did have normalization of the white count, urine culture with Shalonda however the patient did not have any urinary symptoms, 4patient is currently on Zosyn that can be discontinued at discharge question concern answered Dictation was produced using [employer] dictation software. please excuse any grammatical, word or spelling errors. Time with Patient: Less than 30
--- NOTE | 2025-01-04 18:26 | P.PN ---
Subjective Progress Note Date: 01/03/25 59-year-old female who presented the hospital with complaints of nausea vomiting and diarrhea. She has been without her ADHD medication. Apparently she could not find a pharmacy to fill it. Patient was vomiting this morning. Patient with a known history of a hiatal hernia, multiple sclerosis and coronary artery disease. Patient had recent left inguinal abscess with incision and drainage on 12/03/2024. She had a repeat CAT scan outpatient on December 30 that had reported postsurgical changes in the left lower quadrant anterior abdominal wall with significantly improving soft tissue gas compared to prior study on 11/27/2024. No residual drainable fluid collection or abscess noted. Patient diarrhea is improving. Stools are more formed. Stool for C. difficile was negative. Objective - Vital Signs Vital signs: Vital Signs Temp 98.3 F 01/03/25 13:05 Pulse 90 01/03/25 13:05 Resp 17 01/03/25 13:05 BP 123/79 01/03/25 13:05 Pulse Ox 93 L 01/03/25 13:05 FiO2 Intake & Output 01/02/25 01/03/25 01/03/25 18:59 06:59 18:59 Intake Total 815 Balance 815 Intake: Intake, IV Titration 815 Amount Dextrose 5%-0.45% NaCl 1, 715 000 ml @ 65 mls/hr IV . [id number] [facility] Rx#:[id number] Piperacillin-Tazobactam 3 100 .375 gm In Sodium Chloride 0.9% 100 ml @ 25 mls/hr IVPB Q8H [facility] Rx#: [id number] Other: Voiding Method Bedside Commode Bedside Commode # Voids 4 3 # Bowel Movements 1 - Exam General appearance: alert, in no apparent distress, anxious Head exam: Present: atraumatic, normocephalic, normal inspection Eye exam: Present: normal appearance, PERRL, EOMI. Absent: scleral icterus, conjunctival injection, periorbital swelling ENT exam: Present: normal exam, mucous membranes dry Neck exam: Present: normal inspection. Absent: tenderness, meningismus, ly mphadenopathy Respiratory exam: Present: normal lung sounds bilaterally. Absent: respiratory distress, wheezes, rales, rhonchi, stridor Cardiovascular Exam: Present: normal rhythm, tachycardia, normal heart sounds. Absent: systolic murmur, diastolic murmur, rubs, gallop, clicks GI/Abdominal exam: Present: soft, normal bowel sounds. Absent: distended, tenderness, guarding, rebound, rigid Extremities exam: Present: normal inspection, full ROM, normal capillary refill. Absent: tenderness, pedal edema, joint swelling, calf tenderness Neurological exam: Present: alert, oriented X3, CN II-XII intact Skin exam: Present: warm, dry, intact, normal color. Absent: rash - Labs CBC & Chem 7: 01/03/25 06:01/03/25 06:29 Labs: Abnormal Lab Results - Last 24 Hours (Table) 01/03/25 01/03/25 Range/Units 06: 06:29 RBC 3.28 L (4.10-5.20) X 10*6/uL Hgb 8.4 L (12.0-15.0) g/dL Hct 28.5 L (37.2-46.3) % MCH 25.6 L (27.0-32.0) pg MCHC 29.5 L (32.0-37.0) g/dL RDW 16.6 H (11.5-14.5) % Plt Count 533 H (140-440) X 10*3/uL MPV 9.2 L (9.5-12.2) FL Carbon Dioxide 21.3 L (21.6-31.8) mmol/L BUN <3.5 L (9.0-27.0) mg/dL BUN/Creatinine Ratio <5.00 L (12.00-20.00) Ratio Total Bilirubin <0.2 L (0.3-1.2) mg/dL Total Protein 5.0 L (6.2-8.2) g/dL Albumin 3.0 L (3.8-4.9) g/dL Albumin/Globulin Ratio 1.50 L (1.60-3.17) Ratio Microbiology - Last 24 Hours (Table) 01/01/25 10:53 Blood Culture - Preliminary Blood Assessment and Plan Assessment: 1. Nausea, vomiting and diarrhea possibly related to withdrawal symptoms from being without ADHD medication versus acute gastroenteritis 2. Left inguinal abscess status post incision and drainage. Wound is healing with improvement on last CAT scan. No fluid collection reported. 3. Possible C. difficile colitis; ruled out 4. Possible UTI 5. History of recent abdominal wall abscess; status post incision and drainage; patient completed antibiotic therapy 6. Possible Shalonda UTI; patient is being followed by ID; given no urinary symptoms, treatment is not recommended DVT prophylaxis; SCDs CODE STATUS; full code
--- NOTE | 2025-01-04 18:27 | P.PN ---
Subjective Progress Note Date: 01/04/25 59-year-old female who presented the hospital with complaints of nausea vomiting and diarrhea. She has been without her ADHD medication. Apparently she could not find a pharmacy to fill it. Patient was vomiting this morning. Patient with a known history of a hiatal hernia, multiple sclerosis and coronary artery disease. Patient had recent left inguinal abscess with incision and drainage on 12/03/2024. She had a repeat CAT scan outpatient on December 30 that had reported postsurgical changes in the left lower quadrant anterior abdominal wall with significantly improving soft tissue gas compared to prior study on 11/27/2024. No residual drainable fluid collection or abscess noted. Patient diarrhea is improving. Stools are more formed. Stool for C. difficile was negative. 01/04/2025 Patient is seen and evaluated in room at bedside; currently on a full liquid diet Vital signs are reviewed and stable - Patient has been reevaluated by surgery and cleared for discharge if able to tolerate diet patient presented hospital with acute nausea vomiting and diarrhea. Patient did have history of left lower quadrant abscess likely diverticular abscess status post open drainage for the patient has completed course of IV Zosyn and was on oral Augmentin in the present hospital nausea vomiting and diarrhea with a question of withdrawal from her ADHD medication there was concern for possible C. difficile however that has been ruled out. patient did have lower quadrant abdominal wound which seems to be healing with no slough tissue or any purulent drainage recommend packing the wound with a dry Aquacel dressing change daily patient did have normalization of the white count, urine culture with Shalonda however the patient did not have any urinary symptoms, patient is currently on Zosyn that can be discontinued at discharge Objective - Vital Signs Vital signs: Vital Signs Temp 98.3 F 01/04/25 08:00 Pulse 109 H 01/04/25 08:00 Resp 19 01/04/25 08:00 BP 151/87 01/04/25 08:00 Pulse Ox 92 L 01/04/25 08:00 FiO2 Intake & Output 01/03/25 01/04/25 01/04/25 18:59 06:59 18:59 Intake Total 780 Balance 780 Intake: Oral 780 Other: Voiding Method Bedside Commode # Voids 2 1 # Bowel Movements 1 - Exam General appearance: alert, in no apparent distress, anxious Head exam: Present: atraumatic, normocephalic, normal inspection Eye exam: Present: normal appearance, PERRL, EOMI. Absent: scleral icterus, conjunctival injection, periorbital swelling ENT exam: Present: normal exam, mucous membranes dry Neck exam: Present: normal inspection. Absent: tenderness, meningismus, lymphadenopathy Respiratory exam: Present: normal lung sounds bilaterally. Absent: respiratory distress, wheezes, rales, rhonchi, stridor Cardiovascular Exam: Present: normal rhythm, tachycardia, normal heart sounds. Absent: systolic murmur, diastolic murmur, rubs, gallop, clicks GI/Abdominal exam: Present: soft, normal bowel sounds. Absent: distended, tenderness, guarding, rebound, rigid Extremities exam: Present: normal inspection, full ROM, normal capillary refill. Absent: tenderness, pedal edema, joint swelling, calf tenderness Neurological exam: Present: alert, oriented X3, CN II-XII intact Skin exam: Present: warm, dry, intact, normal color. Absent: rash - Labs CBC & Chem 7: 01/03/25 06:29 01/03/25 06:29 Labs: Microbiology - Last 24 Hours (Table) 01/01/25 10:53 Blood Culture - Preliminary Blood Assessment and Plan Assessment: 1. Nausea, vomiting and diarrhea possibly related to withdrawal symptoms from being without ADHD medication versus acute gastroenteritis 2. Left inguinal abscess status post incision and drainage. Wound is healing with improvement on last CAT scan. No fluid collection reported. 3. Possible C. difficile colitis; ruled out 4. Possible UTI 5. History of recent abdominal wall abscess; status post incision and drainage; patient completed antibiotic therapy 6. Possible Shalonda UTI; patient is being followed by ID; given no urinary symptoms, treatment is not recommended DVT prophylaxis; SCDs CODE STATUS; full code
--- NOTE | 2025-01-05 09:08 | P.PN ---
Subjective Progress Note Date: 01/05/25 Patient states she feels better. She is tolerating full liquid diet. On exam vital signs are stable. Abdomen soft. Resolving nausea. Patient has a known chronic hiatal hernia. Patient will be evaluated for possible outpatient repair of her hiatal hernia. Objective - Vital Signs Vital signs: Vital Signs Temp 98.1 F 01/05/25 08:00 Pulse 105 H 01/05/25 08:00 Resp 18 01/05/25 08:00 BP 115/76 01/05/25 08:00 Pulse Ox 95 01/05/25 08:00 FiO2 Intake & Output 01/04/25 01/05/25 01/05/25 18:59 06:59 18:59 Intake Total 580 1560 Output Total 200 Balance 580 1360 Intake: Intake, IV Titration 850 Amount Dextrose 5%-0.45% NaCl 1, 650 000 ml @ 65 mls/hr IV . [id number] [facility] Rx#:[id number] Piperacillin-Tazobactam 3 200 .375 gm In Sodium Chloride 0.9% 100 ml @ 25 mls/hr IVPB Q8H [facility] Rx#: [id number] Oral 580 710 Output: Emesis 200 Other: Voiding Method Bedside Commode # Voids 3 3 - Labs CBC & Chem 7: 01/03/25 06:29 01/03/25 06:29 Labs: Microbiology - Last 24 Hours (Table) 01/01/25 10:53 Blood Culture - Preliminary Blood
[2025-01-05 10:06] LABS: Basophils # (A) 0.06 X 10*3/uL (0.00-0.10); Basophils % (A) 1.2 %; Eosinophils # (A) 0.26 X 10*3/uL (0.04-0.35); Eosinophils % (A) 5.2 %; HCT 29.2 % (37.2-46.3); HGB 8.8 g/dL (12.0-15.0); Lymphocytes # (A) 1.43 X 10*3/uL (0.90-5.00); Lymphocytes % (A) 28.5 %; MCH 25.8 pg (27.0-32.0); MCHC 30.1 g/dL (32.0-37.0); MCV 85.6 FL (80.0-97.0); Mean Platelet Volume 9.3 FL (9.5-12.2); Monocytes # (A) 0.83 X 10*3/uL (0.20-1.00); Monocytes % (A) 16.5 %; NRBC Per 100 WBC 0 X 10*3/uL (0.00-0.01); Neutrophils # (A) 2.42 X 10*3/uL (1.80-7.70); Neutrophils % (A) 48.2 %; Platelet Count 615 X 10*3/uL (140-440); RBC 3.41 X 10*6/uL (4.10-5.20); RDW 16.3 % (11.5-14.5); WBC 5.02 X 10*3/uL (4.50-10.00)
[2025-01-05 10:17] LABS: BUN/Creat Ratio <5.00 Ratio (12.00-20.00); Blood Urea Nitrogen <3.5 mg/dL (9.0-27.0); Calcium 9.9 mg/dL (8.7-10.3); Carbon Dioxide 24.7 mmol/L (21.6-31.8); Chloride 103 mmol/L (96-109); Glucose 108 mg/dL (70-110); Potassium 3.3 mmol/L (3.5-5.5); Sodium 139 mmol/L (135-145)
--- NOTE | 2025-01-05 15:12 | P.PN ---
Subjective Progress Note Date: 01/05/25 Principal diagnosis: Reason for follow-up is nausea vomiting diarrhea Patient is a 59-year-old female with multiple comorbidities including coronary disease fibromyalgia ADHD recent admission to the hospital for a left lower quadrant abscess status post surgical drainage treated with a course of IV Zosyn and subsequent oral antibiotic patient did have a follow-up CT abdominal pelvis on 12/30/2024 which shows overall resolution of the abscess patient now presenting to the hospital concerning for nausea vomiting and diarrhea and concern for possible withdrawal from her ADHD medication. On today's evaluation that is 01/05/2025, Patient is afebrile patient is curren tly on room air and denies having any shortness of breath, the patient denies any chest pain or cough, the patient seem to have issues with nausea and vomiting off and on but denies any abdominal pain or diarrhea. Patient white count is 5.02, creatinine 0.7 blood culture have been negative Objective - Vital Signs Vital signs: Vital Signs Temp 98.1 F 01/05/25 08:00 Pulse 105 H 01/05/25 08:00 Resp 18 01/05/25 08:00 BP 115/76 01/05/25 08:00 Pulse Ox 95 01/05/25 08:00 FiO2 Intake & Output 01/04/25 01/05/25 01/05/25 18:59 06:59 18:59 Intake Total 580 1560 Output Total 200 Balance 580 1360 Intake: Intake, IV Titration 850 Amount Dextrose 5%-0.45% NaCl 1, 650 000 ml @ 65 mls/hr IV . [id number] [facility] Rx#:[id number] Piperacillin-Tazobactam 3 200 .375 gm In Sodium Chloride 0.9% 100 ml @ 25 mls/hr IVPB Q8H [facility] Rx#: [id number] Oral 580 710 Output: Emesis 200 Other: Voiding Method Bedside Commode Bedside Commode # Voids 3 3 - Exam GENERAL DESCRIPTION: Middle-age female lying in bed in no distress RESPIRATORY SYSTEM: Unlabored breathing , decreased breath sounds at bases HEART: S1 S2 regular rate and rhythm , ABDOMEN: Soft , no tenderness EXTREMITIES: No edema feet - Labs CBC & Chem 7: 01/05/25 05:35 01/05/25 05:35 Labs: Abnormal Lab Results - Last 24 Hours (Table) 01/05/25 01/05/25 Range/Units 05:35 05:35 RBC 3.41 L (4.10-5.20) X 10*6/uL Hgb 8.8 L (12.0-15.0) g/dL Hct 29.2 L (37.2-46.3) % MCH 25.8 L (27.0-32.0) pg MCHC 30.1 L (32.0-37.0) g/dL RDW 16.3 H (11.5-14.5) % Plt Count 615 H (140-440) X 10*3/uL MPV 9.3 L (9.5-12.2) FL Potassium 3.3 L (3.5-5.5) mmol/L BUN <3.5 L (9.0-27.0) mg/dL BUN/Creatinine Ratio <5.00 L (12.00-20.00) Ratio Microbiology - Last 24 Hours (Table) 01/01/25 10:53 Blood Culture - Preliminary Blood Assessment and Plan (1) Leukocytosis Current Visit: No Status: Acute Code(s): D72.829 - ELEVATED WHITE BLOOD CELL COUNT, UNSPECIFIED SNOMED Code(s): 700935873 (2) Gastroenteritis Current Visit: Yes Status: Acute Code(s): K52.9 - NONINFECTIVE GASTROENTERITIS AND COLITIS, UNSPECIFIED SNOMED Code(s): 60681150 Plan: 1patient presented hospital with acute nausea vomiting and diarrhea. Patient did have history of left lower quadrant abscess likely diverticular abscess status post open drainage for the patient has completed course of IV Zosyn and was on oral Augmentin in the present hospital nausea vomiting and diarrhea with a question of withdrawal from her ADHD medication there was concern for possible C. difficile however that has been ruled out. 2patient did have lower quadrant abdominal wound which seems to be healing with no slough tissue or any purulent drainage recommend packing the wound with a dry Aquacel dressing change daily 3patient did have normalization of the white count, urine culture with Shalonda however the patient did not have any urinary symptoms, 4patient continued to have issues with nausea and vomiting patient has received extended course of antibiotic for intra-abdominal abscess and the risk of oropharyngeal candidiasis will add Diflucan and see clinical small discontinue Zosyn Dictation was produced using [employer] software. please excuse any grammatical, word or spelling errors. Time with Patient: Less than 30
[2025-01-05] MEDS: FLUCONAZOLE 100 MG TAB PO ONE (16:08)
[2025-01-06 01:05] VITALS: RESP 18
[2025-01-06] MEDS: FLUCONAZOLE 100 MG TAB PO SCH (07:46)
[2025-01-06 10:22] LABS: Basophils # (A) 0.05 X 10*3/uL (0.00-0.10); Eosinophils # (A) 0.23 X 10*3/uL (0.04-0.35); Eosinophils % (A) 4.4 %; HCT 29.8 % (37.2-46.3); HGB 8.8 g/dL (12.0-15.0); Lymphocytes # (A) 1.47 X 10*3/uL (0.90-5.00); Lymphocytes % (A) 28.2 %; MCH 25.5 pg (27.0-32.0); MCHC 29.5 g/dL (32.0-37.0); MCV 86.4 FL (80.0-97.0); Mean Platelet Volume 9.5 FL (9.5-12.2); Monocytes # (A) 0.95 X 10*3/uL (0.20-1.00); Monocytes % (A) 18.2 %; NRBC Per 100 WBC 0 X 10*3/uL (0.00-0.01); Neutrophils # (A) 2.49 X 10*3/uL (1.80-7.70); Neutrophils % (A) 47.6 %; Platelet Count 607 X 10*3/uL (140-440); RBC 3.45 X 10*6/uL (4.10-5.20); RDW 16.5 % (11.5-14.5); WBC 5.22 X 10*3/uL (4.50-10.00)
[2025-01-06 10:27] LABS: BUN/Creat Ratio <5.00 Ratio (12.00-20.00); Blood Urea Nitrogen <3.5 mg/dL (9.0-27.0); Calcium 9.9 mg/dL (8.7-10.3); Carbon Dioxide 24.6 mmol/L (21.6-31.8); Chloride 102 mmol/L (96-109); Glucose 101 mg/dL (70-110); Potassium 3.2 mmol/L (3.5-5.5); Sodium 138 mmol/L (135-145)
--- NOTE | 2025-01-06 12:25 | P.PN ---
Subjective Progress Note Date: 01/06/25 SURGICAL PROGRESS NOTE CHIEF COMPLAINT: Nausea, vomiting and diarrhea HISTORY OF PRESENT ILLNESS: Patient reports some nausea. She did have 1 episode of vomiting last night. She is tolerating the clear liquids. Afebrile. Mild tachycardia. Patient seen and examined with Dr. Cook PHYSICAL EXAM: VITAL SIGNS: Reviewed. GENERAL: Well-developed in no acute distress. ABDOMEN: Soft. ASSESSMENT: 1. Resolving nausea 2. Chronic hiatal hernia PLAN: - Recommend EGD. EGD can be completed outpatient. If patient remains in hospital, plan for EGD on . - Possible outpatient repair of hiatal hernia Physician [employer] note has been reviewed by physician. Signing provider agrees with the documented findings, assessment, and plan of care. Objective - Vital Signs Vital signs: Vital Signs Temp 98.7 F 01/06/25 07:19 Pulse 102 H 01/06/25 07:19 Resp 18 01/06/25 07:19 BP 106/66 01/06/25 07:19 Pulse Ox 95 01/06/25 07:19 FiO2 Intake & Output 01/05/25 01/06/25 01/06/25 18:59 06:59 18:59 Intake Total 780 540 Balance 780 540 Intake: Intake, IV Titration 780 Amount Dextrose 5%-0.45% NaCl 1, 780 000 ml @ 65 mls/hr IV . [id number] [facility] Rx#:[id number] Oral 540 Other: Voiding Method Bedside Commode Bedside Commode - Labs CBC & Chem 7: 01/06/25 04:40 01/06/25 04:40 Labs: Abnormal Lab Results - Last 24 Hours (Table) 01/06/25 01/06/25 Range/Units 04:40 04:40 RBC 3.45 L (4.10-5.20) X 10*6/uL Hgb 8.8 L (12.0-15.0) g/dL Hct 29.8 L (37.2-46.3) % MCH 25.5 L (27.0-32.0) pg MCHC 29.5 L (32.0-37.0) g/dL RDW 16.5 H (11.5-14.5) % Plt Count 607 H (140-440) X 10*3/uL Potassium 3.2 L (3.5-5.5) mmol/L BUN <3.5 L (9.0-27.0) mg/dL BUN/Creatinine Ratio <5.00 L (12.00-20.00) Ratio
[2025-01-06 14:26] VITALS: PULSE 85; TEMP 98.3
--- NOTE | 2025-01-06 16:39 | P.PN ---
Subjective Progress Note Date: 01/06/25 Principal diagnosis: Reason for follow-up is nausea vomiting diarrhea Patient is a 59-year-old female with multiple comorbidities including coronary disease fibromyalgia ADHD recent admission to the hospital for a left lower quadrant abscess status post surgical drainage treated with a course of IV Zosyn and subsequent oral antibiotic patient did have a follow-up CT abdominal pelvis on 12/30/2024 which shows overall resolution of the abscess patient now presenting to the hospital concerning for nausea vomiting and diarrhea and concern for possible withdrawal from her ADHD medication. On today's evaluation that is 01/06/2025, patient has been afebrile, patient is breathing comfortably and is currently on room air, patient denies having any chest pain and cough, patient denies any further vomiting or diarrhea and no abdominal pain, feeling better wants to go home. Patient white count is 5.32 creatinine 0.7 Objective - Vital Signs Vital signs: Vital Signs Temp 98.3 F 01/06/25 12:48 Pulse 85 01/06/25 12:48 Resp 18 01/06/25 12:48 BP 99/60 01/06/25 12:48 Pulse Ox 97 01/06/25 12:48 FiO2 Intake & Output 01/05/25 01/06/25 01/06/25 18:59 06:59 18:59 Intake Total 780 540 Balance 780 540 Intake: Intake, IV Titration 780 Amount Dextrose 5%-0.45% NaCl 1, 780 000 ml @ 65 mls/hr IV . [id number] [facility] Rx#:[id number] Oral 540 Other: Voiding Method Bedside Commode Bedside Commode - Exam GENERAL DESCRIPTION: Middle-age female lying in bed in no distress RESPIRATORY SYSTEM: Unlabored breathing , decreased breath sounds at bases HEART: S1 S2 regular rate and rhythm , ABDOMEN: Soft , no tenderness EXTREMITIES: No edema feet - Labs CBC & Chem 7: 01/06/25 04:40 01/06/25 04:40 Labs: Abnormal Lab Results - Last 24 Hours (Table) 01/06/25 01/06/25 Range/Units 04:40 04:40 RBC 3.45 L (4.10-5.20) X 10*6/uL Hgb 8.8 L (12.0-15.0) g/dL Hct 29.8 L (37.2-46.3) % MCH 25.5 L (27.0-32.0) pg MCHC 29.5 L (32.0-37.0) g/dL RDW 16.5 H (11.5-14.5) % Plt Count 607 H (140-440) X 10*3/uL Potassium 3.2 L (3.5-5.5) mmol/L BUN <3.5 L (9.0-27.0) mg/dL BUN/Creatinine Ratio <5.00 L (12.00-20.00) Ratio Assessment and Plan (1) Leukocytosis Current Visit: No Status: Acute Code(s): D72.829 - ELEVATED WHITE BLOOD CELL COUNT, UNSPECIFIED SNOMED Code(s): 777259537 (2) Gastroenteritis Current Visit: Yes Status: Acute Code(s): K52.9 - NONINFECTIVE GASTROENTERITIS AND COLITIS, UNSPECIFIED SNOMED Code(s): 84254154 Plan: 1patient presented hospital with acute nausea vomiting and diarrhea. Patient did have history of left lower quadrant abscess likely diverticular abscess status post open drainage for the patient has completed course of IV Zosyn and was on oral Augmentin in the present hospital nausea vomiting and diarrhea with a question of withdrawal from her ADHD medication there was concern for possible C. difficile however that has been ruled out. 2patient did have lower quadrant abdominal wound which seems to be healing with no slough tissue or any purulent drainage recommend packing the wound with a dry Aquacel dressing change daily 3patient did have normalization of the white count, urine culture with Shalonda however the patient did not have any urinary symptoms, 4patient did have improvement in her nausea and vomiting with addition of Diflucan to continue for about a week on discharge prescription sent to the pharmacy and close outpatient follow-up Dictation was produced using [employer] dictation software. please excuse any gramma tical, word or spelling errors. Time with Patient: Less than 30
[2025-01-06 17:22] VITALS: BP 124/75
[2025-01-06] MEDS: MAGNESIUM OXIDE 400 MG TAB PO SCH (17:24)
[2025-01-06] MEDS: POTASSIUM CHLORIDE ER 20 MEQ TAB.ER PO STA (17:24)
--- NOTE | 2025-01-07 00:33 | P.DS ---
Providers Date of admission: 12/31/24 20:56 Attending physician: Billy Saunders Consults: 12/31/24 20:56 Consult Physician Routine Consulting Provider: Tye Mendez Consult Reason/Comments: known Do you want consulting provider notified?: Yes 01/01/25 15:28 Consult Physician Routine Consulting Provider: Eddie Cook Consult Reason/Comments: recent abd abscess surgery last week, abd pain Do you want consulting provider notified?: Yes Primary care physician: Jack Pedersen MD Hospital Course: Diagnoses: 1. Nausea, vomiting and diarrhea possibly related to withdrawal symptoms from being without ADHD medication versus acute gastroenteritis. Resolved 2. Left inguinal abscess status post incision and drainage. Wound is healing with improvement on last CAT scan. No fluid collection reported. No need for antibiotics upon discharge 3. Hiatal hernia 4. Acute UTI, secondary to Shalonda infection and urine culture. Patient discharged on oral Diflucan 5. History of recent abdominal wall abscess; status post incision and drainage; patient completed antibiotic therapy 6. Possible Shalonda UTI; patient is being followed by ID; given no urinary symptoms, treatment is not recommended Hospital course: 59-year-old female who presented the hospital with complaints of nausea vomiting and diarrhea. Patient was started to have acute gastroenteritis. Patient followed by general surgery infectious disease team Patient today her symptoms significantly improved, she denies abdominal pain vomiting or diarrhea, she tolerates diet, get up and go test is normal. She denies any other new complaint I discussed case with ID team who cleared patient for discharge a short course of oral Diflucan which is provided. Patient denies any other new complaint and agreed to go home today Problems and management plan were discussed with the patient and he verbalized understanding and acceptance Patient was found stable and can be discharged home in guarded prognosis however he needs follow-up as an outpatient. Patient was instructed to follow up with PCP Dr. Pedersen within one week and patient agrees Patient is instructed to follow-up with general surgery office Dr. Alfred in 1 to 2 weeks and she agrees Physical exam Gen: patient is a AAOx3, no distress CVS: S1-S2, RRR, no murmur Lungs: B/L CTA, no wheezing Abdomen: soft, no distention, no tenderness, positive bowel sounds Extremity: no leg edema or induration Time spent more than 35 minutes Patient Condition at Discharge: Serious Plan - Discharge Summary Discharge Rx Participant: No New Discharge Prescriptions: New Fluconazole [Diflucan] 100 mg PO DAILY #6 tablet Metoclopramide HCl [Reglan] 5 mg PO BID PRN 7 Days #14 tablet PRN Reason: Nausea And Vomiting Magnesium Oxide [Mag-Ox] 400 mg PO TID 3 Days #9 tab Continue rOPINIRole HCL [Requip] 10 mg PO HS Dextroamphetamine Sulfate [Dexedrine] 15 mg PO BID Cetirizine HCl 10 mg PO HS Melatonin 20 mg PO HS Cyclobenzaprine [Flexeril] 10 mg PO TID PRN PRN Reason: Pain Prebiotic/Probiotic 1 cap PO DAILY ondansetron HCL [Zofran] 8 mg PO BID Potassium Chloride ER [K-Dur 20] 20 meq PO DAILY Ferrous Sulfate [Iron (65 MG Elemental)] 325 mg PO W/LUNCH 30 Days #30 tab QUEtiapine FUMARATE [SEROquel] 25 mg PO HS Diclofenac Sodium Gel [Voltaren 1% Gel] 2 gm TOPICAL BID PRN PRN Reason: Pain Ascorbic Acid [Vitamin C] 1,000 mg PO DAILY Multivitamins, Thera [Multivitamin (formulary)] 1 tab PO DAILY Metoprolol Tartrate [Lopressor] 25 mg PO DAILY SUMAtriptan succinate [Imitrex] 25 mg PO TID PRN PRN Reason: Migraine Headache Pantoprazole Sodium [Protonix] 40 mg PO BID #60 tab Discontinued amLODIPine [Norvasc] 5 mg PO DAILY #30 tab Amoxic-Pot Clav 875-125Mg [Augmentin 875-125] 1 tab PO Q12HR Discharge Medication List rOPINIRole HCL [Requip] 10 mg PO HS 09/27/17 [History] Dextroamphetamine Sulfate [Dexedrine] 15 mg PO BID 12/20/18 [History] Cetirizine HCl 10 mg PO HS 03/23/21 [History] Diclofenac Sodium Gel [Voltaren 1% Gel] 2 gm TOPICAL BID PRN 03/23/21 [History] Ascorbic Acid [Vitamin C] 1,000 mg PO DAILY 08/12/24 [History] Cyclobenzaprine [Flexeril] 10 mg PO TID PRN 08/12/24 [History] Melatonin 20 mg PO HS 08/12/24 [History] Prebiotic/Probiotic 1 cap PO DAILY 08/12/24 [History] Multivitamins, Thera [Multivitamin (formulary)] 1 tab PO DAILY 12/02/24 [History] Potassium Chloride ER [K-Dur 20] 20 meq PO DAILY 12/02/24 [History] ondansetron HCL [Zofran] 8 mg PO BID 12/02/24 [History] Ferrous Sulfate [Iron (65 MG Elemental)] 325 mg PO W/LUNCH 30 Days #30 tab 12/07/24 [Rx] Metoprolol Tartrate [Lopressor] 25 mg PO DAILY 01/01/25 [History] QUEtiapine FUMARATE [SEROquel] 25 mg PO HS 01/01/25 [History] SUMAtriptan succinate [Imitrex] 25 mg PO TID PRN 01/01/25 [History] Fluconazole [Diflucan] 100 mg PO DAILY #6 tablet 01/06/25 [Rx] Magnesium Oxide [Mag-Ox] 400 mg PO TID 3 Days #9 tab 01/06/25 [Rx] Metoclopramide HCl [Reglan] 5 mg PO BID PRN 7 Days #14 tablet 01/06/25 [Rx] Pantoprazole Sodium [Protonix] 40 mg PO BID #60 tab 01/06/25 [Rx] Follow up Appointment(s)/Referral(s): Jack Pedersen MD [Primary Care Provider] - 1-2 days (Medical Doctor Patient instructed to make follow-up appointments tomorrow) Tye Mendez MD [STAFF PHYSICIAN] - 1 Week (Infectious Disease Patient instructed to make follow-up appointment tomorrow) Eddie Cook MD [STAFF PHYSICIAN] - 1 Week (Surgeon Patient instructed to make follow-up appointment tomorrow) Ambulatory/Diagnostic Orders: Basic Metabolic Panel [LAB.AMB] Location: None Selected Magnesium [LAB.AMB] Time Frame: 3 Days, Location: None Selected Patient Instructions/Handouts: Metoclopramide (By mouth), Fluconazole (By mouth), Pantoprazole (By mouth), Magnesium Oxide (By mouth), Urinary Tract Infection in Women (DC), Gastroenteritis (DC) Activity/Diet/Wound Care/Special Instructions: continue with full liquid diet and advance as tolerated activity is restricted till you see your doctor recheck your blood test with your doctor including potassium and magnesium levels in 2-3 days We recommend EGD (upper scope) which can be completed outpatient with Dr. Cook - scheduled for 01/09/25 - they should call you at home Discharge Disposition: HOME SELF-CARE
== END 2025-01-06 19:15 | disposition home or self-care (01) | DRG 392 ==
LOC: EC 16:16 → 5NMEDONC 20:56
PROVIDERS: ADMIT Hospitalist; ATTEND Hospitalist
DX: K52.9 Noninfective gastroenteritis and colitis, unspecified (principal); L02.214 Cutaneous abscess of groin; B37.49 Other urogenital candidiasis; G35 Multiple sclerosis; B96.20 Unspecified Escherichia coli [E. coli] as the cause of diseases classified elsewhere; E86.0 Dehydration; N18.9 Chronic kidney disease, unspecified; Z11.52 Encounter for screening for COVID-19; I44.7 Left bundle-branch block, unspecified; G43.909 Migraine, unspecified, not intractable, without status migrainosus; M79.7 Fibromyalgia; F90.9 Attention-deficit hyperactivity disorder, unspecified type; I25.10 Atherosclerotic heart disease of native coronary artery without angina pectoris; K44.9 Diaphragmatic hernia without obstruction or gangrene; Z79.899 Other long term (current) drug therapy; Z82.49 Family history of ischemic heart disease and other diseases of the circulatory system; Z86.19 Personal history of other infectious and parasitic diseases; Z90.49 Acquired absence of other specified parts of digestive tract; Z90.710 Acquired absence of both cervix and uterus; Z88.2 Allergy status to sulfonamides; Z88.6 Allergy status to analgesic agent; Z88.8 Allergy status to other drugs, medicaments and biological substances
CPT/HCPCS: 36415; 71045; 80048; 80053; 81001; 83605; 83735; 84100; 85025; 87040; 87086; 87324; 87636; 96361; 96365; 96366; 96375; 99285

== ENCOUNTER 2025-01-20 10:21 | Inpatient (IN) | payer MEDICARE ==
[2025-01-20 11:19] LABS: Glucose,Whole Blood 94 mg/dL (70-110)
[2025-01-20] MEDS: SODIUM CHLORIDE 0.9% 1,000 ML IV ONE ×2 (11:27→13:05)
--- NOTE | 2025-01-20 11:28 | ED ---
General Adult HPI - General Chief complaint: Nausea/Vomiting/Diarrhea Stated complaint: dehydration Time Seen by Provider: 01/20/25 10:30 Source: patient Mode of arrival: EMS Limitations: no limitations - History of Present Illness Initial comments: 59-year-old female with past medical history of MS, coronary artery disease who presents emergency department with nausea vomiting. States that she has had nausea vomiting over the past several days with inability to hold anything down. She also reports to some nonbloody diarrhea. Patient denies eating any tainted foods. No sick contacts. No abdominal pain. Denies fevers. No new medication changes. Patient does report to cutaneous abscess which was drained by Dr. Cook. Denies chest pain or shortness of breath. No alleviating, precipitating or modifying factors - Related Data Home Medications Medication Instructions Recorded Confirmed rOPINIRole HCL [Requip] 10 mg PO HS 09/27/17 01/20/25 Dextroamphetamine Sulfate 15 mg PO BID 12/20/18 01/20/25 [Dexedrine] Cetirizine HCl 10 mg PO HS 03/23/21 01/20/25 Diclofenac Sodium Gel [Voltaren 1% 2 gm TOPICAL BID PRN 03/23/21 01/20/25 Gel] Ascorbic Acid [Vitamin C] 1,000 mg PO DAILY 08/12/24 01/20/25 Cyclobenzaprine [Flexeril] 10 mg PO TID PRN 08/12/24 01/20/25 Melatonin 20 mg PO HS 08/12/24 01/20/25 Prebiotic/Probiotic 1 cap PO DAILY 08/12/24 01/20/25 Multivitamins, Thera [Multivitamin 1 tab PO DAILY 12/02/24 01/20/25 (formulary)] Potassium Chloride ER [K-Dur 20] 20 meq PO DAILY 12/02/24 01/20/25 ondansetron HCL [Zofran] 8 mg PO BID 12/02/24 01/20/25 Metoprolol Tartrate [Lopressor] 25 mg PO DAILY 01/01/25 01/20/25 QUEtiapine FUMARATE [SEROquel] 25 mg PO HS 01/01/25 01/20/25 SUMAtriptan succinate [Imitrex] 25 mg PO TID PRN 01/01/25 01/20/25 Previous Rx's Medication Instructions Recorded Ferrous Sulfate [Iron (65 MG 325 mg PO W/LUNCH 30 Days #30 tab 12/07/24 Elemental)] Magnesium Oxide [Mag-Ox] 400 mg PO TID 3 Days #9 tab 01/06/25 Pantoprazole Sodium [Protonix] 40 mg PO BID #60 tab 01/06/25 Allergies Allergy/AdvReac Type Severity Reaction Status Date / Time Sulfa (Sulfonamide Allergy Swelling Verified 01/20/25 14:09 Antibiotics) aspirin AdvReac Abdominal Verified 01/20/25 14:09 Pain hydralazine AdvReac Rapid Verified 01/20/25 14:09 Heart Rate Review of Systems ROS Statement: Those systems with pertinent positive or pertinent negative responses have been documented in the HPI. ROS Other: All systems not noted in ROS Statement are negative. Past Medical History Past Medical History: Coronary Artery Disease (CAD), Chest Pain / Angina, Fibromyalgia, Musculoskeletal Disorder, Renal Disease Additional Past Medical History / Comment(s): Migraines, Shrgren syndrome, DDD, MS,. Right BBB, CKD, Tarsal tunnel syndrome, vertigo History of Any Multi-Drug Resistant Organisms: ESBL Date of last positivie culture/infection: 03/01/22 ESBL E.coli MDRO Source:: URINE Past Surgical History: Appendectomy, Hysterectomy, Orthopedic Surgery Additional Past Surgical History / Comment(s): right ankle, abdominal laparoscopies, Presacral Neurectomy, Cryosurgery. abdominal abcess removal Past Anesthesia/Blood Transfusion Reactions: No Reported Reaction Past Psychological History: No Psychological Hx Reported Smoking Status: Never smoker Past Alcohol Use History: None Reported Past Drug Use History: None Reported - Past Family History Father Family Medical History: AICD/Pacemaker, Congestive Heart Failure (CHF), COPD, Diabetes Mellitus, Myocardial Infarction ([place]) Additional Family Medical History / Comment(s): Father at age 83 in his sleep. He has history of AICD. Mother Family Medical History: Hypertension Additional Family Medical History / Comment(s): Mother is alive at age 77 with history of hypertension and bronchiectasis. Patient has 2 brothers with no major medical problems. Patient does not have any sisters. Patient is one daughter with no major medical problems. General Exam Limitations: no limitations General appearance: alert, in no apparent distress Head exam: Present: atraumatic, normocephalic, normal inspection Eye exam: Present: normal appearance, PERRL, EOMI. Absent: scleral icterus, conjunctival injection, periorbital swelling ENT exam: Present: normal exam, mucous membranes moist Neck exam: Present: normal inspection. Absent: tenderness, meningismus, lymphadenopathy Respiratory exam: Present: normal lung sounds bilaterally. Absent: respiratory distress, wheezes, rales, rhonchi, stridor Cardiovascular Exam: Present: normal rhythm, tachycardia, normal heart sounds. Absent: systolic murmur, diastolic murmur, rubs, gallop, clicks GI/Abdominal exam: Present: soft, normal bowel sounds. Absent: distended, tenderness, guarding, rebound, rigid Extremities exam: Present: normal inspection, full ROM, normal capillary refill. Absent: tenderness, pedal edema, joint swelling, calf tenderness Back exam: Present: normal inspection Neurological exam: Present: alert, oriented X3, CN II-XII intact Psychiatric exam: Present: normal affect, normal mood Skin exam: Present: warm, dry, intact, normal color. Absent: rash Course Vital Signs 01/20/25 01/20/25 01/20/25 10:28 12:08 13:00 Temperature 97.9 F Pulse Rate 115 H 108 H 104 H Respiratory 22 18 18 Rate Blood Pressure 84/61 113/73 111/75 O2 Sat by Pulse 98 99 94 L Oximetry 01/20/25 01/20/25 01/20/25 15:00 17:00 18:30 Temperature 98.8 F Pulse Rate 103 H 107 H 112 H Respiratory 16 16 16 Rate Blood Pressure 138/86 109/70 115/80 O2 Sat by Pulse 95 94 L 94 L Oximetry Medical Decision Making - Medical Decision Making Was pt. sent in by a medical professional or institution (, PA, [employer], urgent care, hospital, or intermediate...) When possible be specific @ -No Did you speak to anyone other than the patient for history (EMS, parent, family, police, friend...)? What history was obtained from this source @ -Spoke with EMS for history Did you review nursing and triage notes (agree or disagree)? Why? @ -I reviewed and agree with nursing and triage notes Were old charts reviewed (outside hosp., previous admission, EMS record, old EKG, old radiological studies, urgent care reports/EKG's, intermediate records)? Report findings @ -No old charts were reviewed Differential Diagnosis (chest pain, altered mental status, abdominal pain women, abdominal pain men, vaginal bleeding, weakness, fever, dyspnea, syncope, headache, dizziness, GI bleed, back pain, seizure, CVA, palpatations, mental hea lth, musculoskeletal)? @ -Differential Weakness: Hypoglycemia, shock, sepsis, hyponatremia, anemia, infection, [place], ETOH, adverse medicine reaction, overdose, stroke, this is not meant to be an all-inclusive list. EKG interpreted by me (3pts min.). @ -yes and demonstrates sinus tachycardia with a rate of 109. [place] interval 158. QRS 130. QTc of 399. Right bundle branch block. No acute ST segment elevation. Mild ST depression V1V2 X-rays interpreted by me (1pt min.). @ -None done CT interpreted by me (1pt min.). @ -None done U/S interpreted by me (1pt. min.). @ -None done What testing was considered but not performed or refused? (CT, X-rays, U/S, labs)? Why? @ -None What meds were considered but not given or refused? Why? @ -None Did you discuss the management of the patient with other professionals (professionals i.e. , PA, [employer], lab, RT, psych nurse, socially responsible investment adviser, slubber machine operator, teacher, ground defence officer, case repairer)? Give summary @ -Spoke with Sheet for the admission Was smoking cessation discussed for >3mins.? @ -No Was critical care preformed (if so, how long)? @ -No Were there social determinants of health that impacted care today? How? (Homelessness, low income, unemployed, alcoholism, drug addiction, transportation, low edu. Level, literacy, decrease access to med. care, care home, rehab)? @ -No Was there de-escalation of care discussed even if they declined (Discuss DNR or withdrawal of care, Hospice)? DNR status @ -No What co-morbidities impacted this encounter? (DM, HTN, Smoking, COPD, CAD, Cancer, CVA, ARF, Chemo, Hep., AIDS, mental health diagnosis, sleep apnea, morbid obesity)? @ -MS Was patient admitted / discharged? Hospital course, mention meds given and route, prescriptions, significant lab abnormalities, going to OR and other pertinent info. @ -Upon arrival patient seen and evaluated in hallway 11. Thorough history and physical exam was performed. IV access was established. Laboratory studies are conducted. Calcium is 16.1. Discussed the results with the patient. Recommended admission. Patient was agreeable to this. Spoke with Dr. Ewing for the admission Undiagnosed new problem with uncertain prognosis? @ -No Drug Therapy requiring intensive monitoring for toxicity (Heparin, Nitro, Insulin, Cardizem)? @ -No Were any procedures done? @ -No Diagnosis/symptom? @ -Acute nausea vomiting, acute dehydration, hypercalcemia Acute, or Chronic, or Acute on Chronic? @ -Acute Uncomplicated (without systemic symptoms) or Complicated (systemic symptoms)? @ -Complicated Side effects of treatment? @ -No Exacerbation, Progression, or Severe Exacerbation? @ -No Poses a threat to life or bodily function? How? (Chest pain, [place], [place], pneumonia, PE, COPD, DKA, ARF, appy, cholecystitis, CVA, Diverticulitis, Homicidal, Suicidal, threat to staff... and all critical care pts) @ -No - Lab Data Result diagrams: 01/25/25 03:09 01/25/25 03:09 Lab Results 01/20/25 01/20/25 01/20/25 Range/Units 11:18 11:24 11:24 WBC 6.42 (4.50-10.00) 10*3/uL RBC 4.11 (4.10-5.20) 10*6/uL Hgb 10.5 L (12.0-15.0) g/dL Hct 34.3 L (37.2-46.3) % MCV 83.5 (80.0-97.0) fL MCH 25.5 L (27.0-32.0) pg MCHC 30.6 L (32.0-37.0) g/dL Plt Count 711 H (140-440) 10*3/uL MPV 9.3 L (9.5-12.2) fL Immature Gran % (Auto) 0.2 % Neutrophils % 59.1 % Lymphocytes % 26.8 % Monocytes % 9.0 % Eosinophils % 3.3 % Basophils % 1.6 % Immature Gran # 0.01 (0.00-0.04) 10*3/uL Neutrophils # 3.80 (1.80-7.70) 10*3/uL Lymphocytes # 1.72 (0.90-5.00) 10*3/uL Monocytes # 0.58 (0.20-1.00) 10*3/uL Eosinophils # 0.21 (0.04-0.35) 10*3/uL Basophils # 0.10 (0.00-0.10) 10*3/uL Sodium 140 (137-145) mmol/L Potassium 5.0 (3.5-5.1) mmol/L Chloride 107 (98-107) mmol/L Carbon Dioxide 19 L (22-30) mmol/L Anion Gap 14 mmol/L BUN 13 (7-17) mg/dL Creatinine 0.67 (0.52-1.04) mg/dL Est GFR (CKD-EPI)AfAm >90 (>60 ml/min/1.73 sqM) Est GFR (CKD-EPI)NonAf >90 (>60 ml/min/1.73 sqM) Glucose 101 H (74-99) mg/dL POC Glucose (mg/dL) 94 (70-110) mg/dL POC Glu General Medical Practitioner ID [place] Plasma Lactic Acid Denagelo (0.7-2.0) mmol/L Calcium 16.1 H* (8.4-10.2) mg/dL Ionized Calcium Nelson (4.5-5.3) mg/dL Phosphorus (2.5-4.5) mg/dL Magnesium (1.6-2.3) mg/dL Total Bilirubin 0.6 (0.2-1.3) mg/dL AST 46 H (14-36) U/L ALT 16 (4-34) U/L Alkaline Phosphatase 121 (38-126) U/L Total Protein 6.6 (6.3-8.2) g/dL Albumin 3.8 (3.5-5.0) g/dL Lipase 190 (23-300) U/L TSH (0.465-4.680) mIU/L PTH Intact (14.0-72.0) pg/mL Urine Color Urine Appearance (Clear) Urine pH (5.0-8.0) Ur Specific [place] (1.001-1.035) Urine Protein (Negative) Urine Glucose (UA) (Negative) Urine Ketones (Negative) Urine Blood (Negative) Urine Nitrite (Negative) Urine Bilirubin (Negative) Urine Urobilinogen (<2.0) mg/dL Ur Leukocyte Esterase (Negative) Urine RBC (0-5) /hpf Urine WBC (0-5) /hpf Ur Squamous Epith Cells (0-4) /hpf Calcium Oxalate Crystal (None) /hpf Hyaline Casts (0-2) /lpf Urine Mucus (None) /hpf 01/20/25 01/20/25 01/20/25 Range/Units 11:24 11:44 13:09 WBC (4.50-10.00) 10*3/uL RBC (4.10-5.20) 10*6/uL Hgb (12.0-15.0) g/dL Hct (37.2-46.3) % MCV (80.0-97.0) fL MCH (27.0-32.0) pg MCHC (32.0-37.0) g/dL Plt Count (140-440) 10*3/uL MPV (9.5-12.2) fL Immature Gran % (Auto) % Neutrophils % % Lymphocytes % % Monocytes % % Eosinophils % % Basophils % % Immature Gran # (0.00-0.04) 10*3/uL Neutrophils # (1.80-7.70) 10*3/uL Lymphocytes # (0.90-5.00) 10*3/uL Monocytes # (0.20-1.00) 10*3/uL Eosinophils # (0.04-0.35) 10*3/uL Basophils # (0.00-0.10) 10*3/uL Sodium (137-145) mmol/L Potassium (3.5-5.1) mmol/L Chloride (98-107) mmol/L Carbon Dioxide (22-30) mmol/L Anion Gap mmol/L BUN (7-17) mg/dL Creatinine (0.52-1.04) mg/dL Est GFR (CKD-EPI)AfAm (>60 ml/min/1.73 sqM) Est GFR (CKD-EPI)NonAf (>60 ml/min/1.73 sqM) Glucose (74-99) mg/dL POC Glucose (mg/dL) (70-110) mg/dL POC Glu General Medical Practitioner ID Plasma Lactic Acid Deangelo 1.2 (0.7-2.0) mmol/L Calcium (8.4-10.2) mg/dL Ionized Calcium Nelson 8.4 H* (4.5-5.3) mg/dL Phosphorus 2.8 (2.5-4.5) mg/dL Magnesium 1.3 L (1.6-2.3) mg/dL Total Bilirubin (0.2-1.3) mg/dL AST (14-36) U/L ALT (4-34) U/L Alkaline Phosphatase (38-126) U/L Total Protein (6.3-8.2) g/dL Albumin (3.5-5.0) g/dL Lipase (23-300) U/L TSH 0.880 (0.465-4.680) mIU/L PTH Intact (14.0-72.0) pg/mL Urine Color Yellow Urine Appearance Cloudy H (Clear) Urine pH 5.5 (5.0-8.0) Ur Specific [place] 1.023 (1.001-1.035) Urine Protein Trace H (Negative) Urine Glucose (UA) Negative (Negative) Urine Ketones 2+ H (Negative) Urine Blood Negative (Negative) Urine Nitrite Negative (Negative) Urine Bilirubin 1+ H (Negative) Urine Urobilinogen 2.0 (<2.0) mg/dL Ur Leukocyte Esterase Moderate H (Negative) Urine RBC 6 H (0-5) /hpf Urine WBC 16 H (0-5) /hpf Ur Squamous Epith Cells 5 H (0-4) /hpf Calcium Oxalate Crystal Occasional H (None) /hpf Hyaline Casts 28 H (0-2) /lpf Urine Mucus Rare H (None) /hpf 01/20/25 Range/Units 13:09 WBC (4.50-10.00) 10*3/uL RBC (4.10-5.20) 10*6/uL Hgb (12.0-15.0) g/dL Hct (37.2-46.3) % MCV (80.0-97.0) fL MCH (27.0-32.0) pg MCHC (32.0-37.0) g/dL Plt Count (140-440) 10*3/uL MPV (9.5-12.2) fL Immature Gran % (Auto) % Neutrophils % % Lymphocytes % % Monocytes % % Eosinophils % % Basophils % % Immature Gran # (0.00-0.04) 10*3/uL Neutrophils # (1.80-7.70) 10*3/uL Lymphocytes # (0.90-5.00) 10*3/uL Monocytes # (0.20-1.00) 10*3/uL Eosinophils # (0.04-0.35) 10*3/uL Basophils # (0.00-0.10) 10*3/uL Sodium (137-145) mmol/L Potassium (3.5-5.1) mmol/L Chloride (98-107) mmol/L Carbon Dioxide (22-30) mmol/L Anion Gap mmol/L BUN (7-17) mg/dL Creatinine (0.52-1.04) mg/dL Est GFR (CKD-EPI)AfAm (>60 ml/min/1.73 sqM) Est GFR (CKD-EPI)NonAf (>60 ml/min/1.73 sqM) Glucose (74-99) mg/dL POC Glucose (mg/dL) (70-110) mg/dL POC Glu General Medical Practitioner ID Plasma Lactic Acid Deangelo (0.7-2.0) mmol/L Calcium (8.4-10.2) mg/dL Ionized Calcium Nelson (4.5-5.3) mg/dL Phosphorus (2.5-4.5) mg/dL Magnesium (1.6-2.3) mg/dL Total Bilirubin (0.2-1.3) mg/dL AST (14-36) U/L ALT (4-34) U/L Alkaline Phosphatase (38-126) U/L Total Protein (6.3-8.2) g/dL Albumin (3.5-5.0) g/dL Lipase (23-300) U/L TSH (0.465-4.680) mIU/L PTH Intact 30.8 (14.0-72.0) pg/mL Urine Color Urine Appearance (Clear) Urine pH (5.0-8.0) Ur Specific [place] (1.001-1.035) Urine Protein (Negative) Urine Glucose (UA) (Negative) Urine Ketones (Negative) Urine Blood (Negative) Urine Nitrite (Negative) Urine Bilirubin (Negative) Urine Urobilinogen (<2.0) mg/dL Ur Leukocyte Esterase (Negative) Urine RBC (0-5) /hpf Urine WBC (0-5) /hpf Ur Squamous Epith Cells (0-4) /hpf Calcium Oxalate Crystal (None) /hpf Hyaline Casts (0-2) /lpf Urine Mucus (None) /hpf Disposition Clinical Impression: Acute nausea with nonbilious vomiting, Diarrhea, Hypercalcemia, Hypomagnesemia Disposition: ADMITTED IP TO THIS [facility] Condition: Stable Is patient prescribed a controlled substance at d/c from ED?: No Time of Disposition: 14:56 Decision to Admit Reason: Admit from EC Decision Date: 01/20/25 Decision Time: 14:56
[2025-01-20 12:01] LABS: Basophils # (A) 0.10 10*3/uL (0.00-0.10); Basophils % (A) 1.6 %; Eosinophils # (A) 0.21 10*3/uL (0.04-0.35); Eosinophils % (A) 3.3 %; HCT 34.3 % (37.2-46.3); HGB 10.5 g/dL (12.0-15.0); Lymphocytes # (A) 1.72 10*3/uL (0.90-5.00); Lymphocytes % (A) 26.8 %; MCH 25.5 pg (27.0-32.0); MCHC 30.6 g/dL (32.0-37.0); MCV 83.5 fL (80.0-97.0); Monocytes # (A) 0.58 10*3/uL (0.20-1.00); Monocytes % (A) 9.0 %; Neutrophils # (A) 3.80 10*3/uL (1.80-7.70); Neutrophils % (A) 59.1 %; Platelet Count 711 10*3/uL (140-440); RBC 4.11 10*6/uL (4.10-5.20); RDW 16.2 % (11.5-14.5); WBC 6.42 10*3/uL (4.50-10.00)
[2025-01-20] MEDS: MORPHINE SULFATE 2 MG/ML SYRINGE IVP ONE ×2 (12:06→16:02)
[2025-01-20 12:21] LABS: ALT 16 U/L (4-34); African American GFR (CKD) >90 (>60 ml/min/1.73 sqM); Albumin 3.8 g/dL (3.5-5.0); Anion Gap 14 mmol/L; Blood Urea Nitrogen 13 mg/dL (7-17); Carbon Dioxide 19 mmol/L (22-30); Chloride 107 mmol/L (98-107); Glucose 101 mg/dL (74-99); Lipase 190 U/L (23-300); Non-African American GFR(CKD) >90 (>60 ml/min/1.73 sqM); Sodium 140 mmol/L (137-145)
[2025-01-20 12:29] LABS: AST 46 U/L (14-36); Alkaline Phosphatase 121 U/L (38-126); Potassium 5.0 mmol/L (3.5-5.1); Total Protein 6.6 g/dL (6.3-8.2)
[2025-01-20 12:30] LABS: Calcium 16.1 mg/dL (8.4-10.2)
[2025-01-20 12:33] LABS: Bilirubin,Urine 1+ (Negative); Blood,Urine Negative (Negative); Calcium Oxalate Crystals,Urine Occasional /hpf; Color,Urine Yellow; Glucose,Urine (UA) Negative (Negative); Hyaline Casts,Urine 28 /lpf (0-2); Ketones,Urine 2+ (Negative); Leukocyte Esterase,Urine Moderate (Negative); Mucus,Urine Rare /hpf; Nitrite,Urine Negative (Negative); PH, Urine 5.5 (5.0-8.0); Protein,Urine Trace (Negative); RBC,Urine 6 /hpf (0-5); Specific Gravity,Urine 1.023 (1.001-1.035); Squamous Epithelial Cell,Urine 5 /hpf (0-4); Urobilinogen,Urine 2.0 mg/dL (<2.0); WBC,Urine 16 /hpf (0-5)
[2025-01-20 13:36] LABS: Magnesium 1.3 mg/dL (1.6-2.3)
[2025-01-20] MEDS ORDERED: NALOXONE 0.4 MG/ML 1 ML VIAL IV PRN (15:03)
[2025-01-20] MEDS: SODIUM CHLORIDE 0.9% 1,000 ML IV SCH (15:10)
[2025-01-20] MEDS: MAGNESIUM SULFATE-D5W PMX 1 GM in DEXTROSE/WATER 1 100ML.BAG IVPB SCH (15:12)
[2025-01-20] MEDS: FERROUS SULFATE 325 MG TAB PO SCH (16:35)
[2025-01-20] MEDS: MAGNESIUM OXIDE 400 MG TAB PO SCH (16:36)
[2025-01-20] MEDS: PANTOPRAZOLE 40 MG TABLET PO SCH (17:55)
[2025-01-20] MEDS: ONDANSETRON 4 MG/2 ML VIAL IVP PRN (17:58)
--- NOTE | 2025-01-20 19:36 | P.HPIM ---
History of Present Illness Patient is a pleasant 59 years old female with past medical history of multiple medical problems as below. Patient presents because of nausea vomiting started since Monday night, about 4 to 5 days ago Yesterday patient was only drinking water and a whole to stop her emesis. Patient was not coherent her hip and heels hurts she did not sleep well Her last bowel movement was yesterday and look normal with no diarrhea. Patient felt pain all over her body Patient denies dysuria or urgency no chest pain or dyspnea or coughing Patient feels dizzy when she tries to get up. No weakness or tingling in the limbs She had some abdominal pain nonradiating in the epigastric area with no known precipitating or relieving factor, felt just as ache She denies smoking alcohol illicit drug She had recent history for her lower abdominal abscess, her surgeon was Dr. Cook, Last time she was in this hospital was also for nausea vomiting and diarrhea. Left inguinal abscess status post I&D and CAT scan showed improvement with no fluid collection and no need for antibiotics upon discharge. Also treated for Shlaonda UTI. Patient's tachycardia not febrile CBC BMP LFT were unremarkable. Urine is concentrated sample. Magnesium 1.3. TSH is normal at 0.8 and parathyroid hormone is normal at 30. EKG showing sinus tachycardia [address]-T changes. Review of Systems Review of systems CONSTITUTIONAL: No fever, no malaise, no fatigue. HEENT: No recent visual problems or hearing problems. Denied any sore throat. CARDIOVASCULAR: No orthopnea, PND, no palpitations, no syncope. PULMONARY: No shortness of breath, no cough, no hemoptysis. -GASTROINTESTINAL: As above. NEUROLOGICAL: No headaches, no weakness, no numbness. HEMATOLOGICAL: Denies any bleeding or petechiae. GENITOURINARY: Denies any burning micturition, frequency, or urgency. MUSCULOSKELETAL/RHEUMATOLOGICAL: Denies any joint pain, swelling, or any muscle pain. ENDOCRINE: Denies any polyuria or polydipsia. Past Medical History Past Medical History: Coronary Artery Disease (CAD), Chest Pain / Angina, Fibromyalgia, Musculoskeletal Disorder, Renal Disease Additional Past Medical History / Comment(s): Migraines, Shrgren syndrome, DDD, MS,. Right BBB, CKD, Tarsal tunnel syndrome, vertigo History of Any Multi-Drug Resistant Organisms: ESBL Date of last positivie culture/infection: 03/01/22 ESBL E.coli MDRO Source:: URINE Past Surgical History: Appendectomy, Hysterectomy, Orthopedic Surgery Additional Past Surgical History / Comment(s): right ankle, abdominal laparoscopies, Presacral Neurectomy, Cryosurgery. abdominal abcess removal Past Anesthesia/Blood Transfusion Reactions: No Reported Reaction Past Psychological History: No Psychological Hx Reported Smoking Status: Never smoker Past Alcohol Use History: None Reported Past Drug Use History: None Reported - Past Family History Father Family Medical History: AICD/Pacemaker, Congestive Heart Failure (CHF), COPD, Diabetes Mellitus, Myocardial Infarction ([place]) Additional Family Medical History / Comment(s): Father at age 83 in his sleep. He has history of AICD. Mother Family Medical History: Hypertension Additional Family Medical History / Comment(s): Mother is alive at age 77 with history of hypertension and bronchiectasis. Patient has 2 brothers with no major medical problems. Patient does not have any sisters. Patient is one daughter with no major medical problems. Medications and Allergies Home Medications Medication Instructions Recorded Confirmed Type rOPINIRole HCL [Requip] 10 mg PO HS 09/27/17 01/20/25 History Dextroamphetamine Sulfate 15 mg PO BID 12/20/18 01/20/25 History [Dexedrine] Cetirizine HCl 10 mg PO HS 03/23/21 01/20/25 History Diclofenac Sodium Gel [Voltaren 1% 2 gm TOPICAL BID PRN 03/23/21 01/20/25 History Gel] Ascorbic Acid [Vitamin C] 1,000 mg PO DAILY 08/12/24 01/20/25 History Cyclobenzaprine [Flexeril] 10 mg PO TID PRN 08/12/24 01/20/25 History Melatonin 20 mg PO HS 08/12/24 01/20/25 History Prebiotic/Probiotic 1 cap PO DAILY 08/12/24 01/20/25 History Multivitamins, Thera [Multivitamin 1 tab PO DAILY 12/02/24 01/20/25 History (formulary)] Potassium Chloride ER [K-Dur 20] 20 meq PO DAILY 12/02/24 01/20/25 History ondansetron HCL [Zofran] 8 mg PO BID 12/02/24 01/20/25 History Ferrous Sulfate [Iron (65 MG 325 mg PO W/LUNCH 30 Days #30 tab 12/07/24 01/20/25 Rx Elemental)] Metoprolol Tartrate [Lopressor] 25 mg PO DAILY 01/01/25 01/20/25 History QUEtiapine FUMARATE [SEROquel] 25 mg PO HS 01/01/25 01/20/25 History SUMAtriptan succinate [Imitrex] 25 mg PO TID PRN 01/01/25 01/20/25 History Magnesium Oxide [Mag-Ox] 400 mg PO TID 3 Days #9 tab 01/06/25 01/20/25 Rx Pantoprazole Sodium [Protonix] 40 mg PO BID #60 tab 01/06/25 01/20/25 Rx Allergies Allergy/AdvReac Type Severity Reaction Status Date / Time Sulfa (Sulfonamide Allergy Swelling Verified 01/20/25 14:09 Antibiotics) aspirin AdvReac Abdominal Verified 01/20/25 14:09 Pain hydralazine AdvReac Rapid Verified 01/20/25 14:09 Heart Rate Physical Exam Vitals: Vital Signs Temp Pulse Resp BP Pulse Ox 01/20/25 18:30 98.8 F 112 H 16 115/80 94 L 01/20/25 17:00 107 H 16 109/70 94 L 01/20/25 15:00 103 H 16 138/86 95 01/20/25 13:00 104 H 18 111/75 94 L 01/20/25 12:08 108 H 18 113/73 99 01/20/25 10:28 97.9 F 115 H 22 84/61 98 Intake and Output 01/20/25 01/20/25 01/20/25 06:59 14:59 22:59 Other: Weight 63.503 kg GENERAL: The patient is alert and oriented x3, not in any acute distress. Well developed, well nourished. HEENT: Pupils are round and equally reacting to light. EOMI. No scleral icterus. No conjunctival pallor. Normocephalic, atraumatic. No pharyngeal erythema. No t hyromegaly. CARDIOVASCULAR: S1 and S2 present. No murmurs, rubs, or gallops. PULMONARY: Chest is clear to auscultation, no wheezing , no crackles. -ABDOMEN: Soft, nontender, nondistended, normoactive bowel sounds. No palpable organomegaly. lower abd opening in the skin with no surrounding cellulitis MUSCULOSKELETAL: No joint swelling or deformity. EXTREMITIES: No cyanosis, clubbing, or pedal edema. NEUROLOGICAL: Gross neurological examination did not reveal any focal deficits. SKIN: No rashes. no petechiae. Results CBC & Chem 7: 01/20/25 11:24 01/20/25 11:24 Labs: Abnormal Lab Results - Last 24 Hours (Table) 01/20/25 01/20/25 01/20/25 Range/Units 11:24 11:24 11:44 Hgb 10.5 L (12.0-15.0) g/dL Hct 34.3 L (37.2-46.3) % MCH 25.5 L (27.0-32.0) pg MCHC 30.6 L (32.0-37.0) g/dL Plt Count 711 H (140-440) 10*3/uL MPV 9.3 L (9.5-12.2) fL Carbon Dioxide 19 L (22-30) mmol/L Glucose 101 H (74-99) mg/dL Calcium 16.1 H* (8.4-10.2) mg/dL Ionized Calcium Nelson (4.5-5.3) mg/dL Magnesium (1.6-2.3) mg/dL AST 46 H (14-36) U/L Urine Appearance Cloudy H (Clear) Urine Protein Trace H (Negative) Urine Ketones 2+ H (Negative) Urine Bilirubin 1+ H (Negative) Ur Leukocyte Esterase Moderate H (Negative) Urine RBC 6 H (0-5) /hpf Urine WBC 16 H (0-5) /hpf Ur Squamous Epith Cells 5 H (0-4) /hpf Calcium Oxalate Crystal Occasional H (None) /hpf Hyaline Casts 28 H (0-2) /lpf Urine Mucus Rare H (None) /hpf 01/20/25 Range/Units 13:09 Hgb (12.0-15.0) g/dL Hct (37.2-46.3) % MCH (27.0-32.0) pg MCHC (32.0-37.0) g/dL Plt Count (140-440) 10*3/uL MPV (9.5-12.2) fL Carbon Dioxide (22-30) mmol/L Glucose (74-99) mg/dL Calcium (8.4-10.2) mg/dL Ionized Calcium Nelson 8.4 H* (4.5-5.3) mg/dL Magnesium 1.3 L (1.6-2.3) mg/dL AST (14-36) U/L Urine Appearance (Clear) Urine Protein (Negative) Urine Ketones (Negative) Urine Bilirubin (Negative) Ur Leukocyte Esterase (Negative) Urine RBC (0-5) /hpf Urine WBC (0-5) /hpf Ur Squamous Epith Cells (0-4) /hpf Calcium Oxalate Crystal (None) /hpf Hyaline Casts (0-2) /lpf Urine Mucus (None) /hpf Assessment and Plan Assessment: Nausea vomiting Hypercalcemia Recurrent lower abdominal abscess/fistula. Coronary artery disease Fibromyalgia Migraine Triggering syndrome Vertigo Plan: Continue with normal saline 130 Check stool WBC and C. difficile PTH is normal. Check vitamin D Consult nephrology team Consult infectious disease team and general surgery team Hold Seroquel and Requip if possible which might contribute to the GI symptoms Labs and medication were reviewed.. Continue same treatment. Continue with symptomatic treatment. Resume home medication. Monitor labs and vitals. DVT and GI prophylaxis. Further recommendations as per clinical course of the patient DVT prophylaxis: Subcutaneous heparin GI Prophylaxis: Ppi PT/OT: Pending Prognosis is guarded
[2025-01-20] MEDS ORDERED: QUEtiapine 25 MG TAB PO SCH (21:00)
[2025-01-20] MEDS ORDERED: rOPINIRole HCL 4 MG TABLET PO SCH (21:00)
[2025-01-20] MEDS: ONDANSETRON ODT 8 MG TAB.RAPDIS PO SCH (21:30)
[2025-01-20] MEDS: MELATONIN 5 MG TABLET PO SCH (21:30)
[2025-01-20] MEDS: MORPHINE SULFATE 2 MG/ML SYRINGE IVP PRN (21:30)
[2025-01-21 07:05] LABS: Basophils # (A) 0.08 10*3/uL (0.00-0.10); Basophils % (A) 1.4 %; Eosinophils # (A) 0.21 10*3/uL (0.04-0.35); Eosinophils % (A) 3.7 %; HCT 28.8 % (37.2-46.3); Lymphocytes # (A) 1.57 10*3/uL (0.90-5.00); Lymphocytes % (A) 27.9 %; MCH 26.1 pg (27.0-32.0); MCHC 30.9 g/dL (32.0-37.0); MCV 84.5 fL (80.0-97.0); Monocytes # (A) 0.45 10*3/uL (0.20-1.00); Monocytes % (A) 8.0 %; Neutrophils # (A) 3.31 10*3/uL (1.80-7.70); Neutrophils % (A) 58.8 %; Platelet Count 647 10*3/uL (140-440); RBC 3.41 10*6/uL (4.10-5.20); RDW 16.3 % (11.5-14.5); WBC 5.63 10*3/uL (4.50-10.00)
[2025-01-21 07:10] LABS: HGB 8.9 g/dL (12.0-15.0)
[2025-01-21 07:41] LABS: African American GFR (CKD) >90 (>60 ml/min/1.73 sqM); Anion Gap 7 mmol/L; Blood Urea Nitrogen 8 mg/dL (7-17); Carbon Dioxide 21 mmol/L (22-30); Chloride 111 mmol/L (98-107); Glucose 84 mg/dL (74-99); Magnesium 1.5 mg/dL (1.6-2.3); Non-African American GFR(CKD) >90 (>60 ml/min/1.73 sqM); Potassium 4.4 mmol/L (3.5-5.1); Sodium 139 mmol/L (137-145)
[2025-01-21 07:43] LABS: Calcium 13.9 mg/dL (8.4-10.2)
[2025-01-21] MEDS: MULTIVITAMINS, THERA 1 EACH TAB PO SCH (08:52)
[2025-01-21] MEDS: METOPROLOL TARTRATE 25 MG TAB PO SCH (08:52)
[2025-01-21] MEDS: LACTOBACILLUS ACIDOPHILUS/PECT 1 EACH CAPSULE PO SCH (08:53)
--- NOTE | 2025-01-21 08:54 | P.PN ---
Subjective Patient is a pleasant 59 years old female with past medical history of multiple medical problems as below. Patient presents because of nausea vomiting started since Monday night, about 4 to 5 days ago Yesterday patient was only drinking water and a whole to stop her emesis. Patient was not coherent her hip and heels hurts she did not sleep well Her last bowel movement was yesterday and look normal with no diarrhea. Patient felt pain all over her body Patient denies dysuria or urgency no chest pain or dyspnea or coughing Patient feels dizzy when she tries to get up. No weakness or tingling in the limbs She had some abdominal pain nonradiating in the epigastric area with no known precipitating or relieving factor, felt just as ache She denies smoking alcohol illicit drug She had recent history for her lower abdominal abscess, her surgeon was Dr. Cook, Last time she was in this hospital was also for nausea vomiting and diarrhea. Left inguinal abscess status post I&D and CAT scan showed improvement with no fluid collection and no need for antibiotics upon discharge. Also treated for Shalonda UTI. Patient's tachycardia not febrile CBC BMP LFT were unremarkable. Urine is concentrated sample. Magnesium 1.3. TSH is normal at 0.8 and parathyroid hormone is normal at 30. EKG showing sinus tachycardia [address]-T changes. 7/8 Patient with no abdominal pain and vomiting stopped. She did not start eating it because she had significant migraine headache she is having history of migraine but did not have a headache for a while. Her PCP started her on Imitrex but she did not take it because she did not have headache recently. Patient states is the same migraine headache. She still have lower abdominal drainage from her lower abdominal wound, mild erythema around the orifice, dressing in place No other new complaints Calcium still elevated with mL calcium about 8 Patient remains on IV fluids. Vitamin D levels were ordered and is pending Nephrology, ID and surgery team on the case Will start pain management Review of systems CONSTITUTIONAL: No fever, no malaise, no fatigue. HEENT: No recent visual problems or hearing problems. Denied any sore throat. CARDIOVASCULAR: No orthopnea, PND, no palpitations, no syncope. PULMONARY: No shortness of breath, no cough, no hemoptysis. HEMATOLOGICAL: Denies any bleeding or petechiae. GENITOURINARY: Denies any burning micturition, frequency, or urgency. MUSCULOSKELETAL/RHEUMATOLOGICAL: Denies any joint pain, swelling, or any muscle pain. ENDOCRINE: Denies any polyuria or polydipsia. Active Medications Generic Name Dose Route Start Last Admin Trade Name Freq PRN Reason Stop Dose Admin Ferrous Sulfate 325 mg 01/20/25 16:15 01/20/25 16:36 Ferrous Sulfate 325 Mg Tab PO 325 mg W/LUNCH GRIFFIN Administration Sodium Chloride 1,000 mls @ 130 mls/hr 01/20/25 15:15 01/21/25 01:47 Saline 0.9% IV Not Given .[id number] [facility] Magnesium Sulfate/Dextrose 1 100 mls @ 100 mls/hr 01/21/25 08:51 gm/ IV Solution IVPB 01/21/25 09:50 ONCE ONE Lactobacillus Acidophilus 1 each 01/21/25 09:00 Lactobacillus Acidophilus/Pect 1 Each Capsule PO DAILY [facility] Magnesium Oxide 400 mg 01/20/25 16:15 01/20/25 21:30 Magnesium Oxide 400 Mg Tab PO Not Given TID [facility] Melatonin 20 mg 01/20/25 21:00 01/20/25 21:30 Melatonin 5 Mg Tablet PO 20 mg HS GRIFFIN Administration Metoprolol Tartrate 25 mg 01/21/25 09:00 Metoprolol Tartrate 25 Mg Tab PO DAILY [facility] Morphine Sulfate 2 mg 01/20/25 21:17 01/20/25 21:30 Morphine Sulfate 2 Mg/Ml Syringe IVP 2 mg Q6HR PRN Administration Pain/Discomfort Multivitamins 1 each 01/21/25 09:00 Multivitamins, Thera 1 Each Tab PO DAILY [facility] Naloxone HCl 0.2 mg 01/20/25 15:03 Naloxone 0.4 Mg/Ml 1 Ml Vial IV Q2M PRN Opioid Reversal Ondansetron HCl 4 mg 01/20/25 15:03 01/20/25 17:58 Ondansetron 4 Mg/2 Ml Vial IVP 4 mg Q8HR PRN Administration Nausea And Vomiting Ondansetron HCl 8 mg 01/20/25 21:00 01/20/25 21:30 Ondansetron Odt 8 Mg Tab.Rapdis PO 8 mg BID GRIFFIN Administration Pantoprazole Sodium 40 mg 01/20/25 17:30 01/21/25 06:42 Pantoprazole 40 Mg Tablet PO Not Given AC-BID GRIFFIN Temazepam 15 mg 01/20/25 19:03 Temazepam 15 Mg Cap PO HS PRN Insomnia Objective - Vital Signs Vital signs: Vital Signs Temp 98.6 F 01/21/25 06:55 Pulse 107 H 01/21/25 06:55 Resp 16 01/21/25 06:55 BP 112/80 01/21/25 06:55 Pulse Ox 94 L 01/21/25 06:55 FiO2 Intake & Output 01/20/25 01/21/25 01/21/25 18:59 06:59 18:59 Weight 63.503 kg 63.503 kg Other: # Voids 2 - Exam Patient is a pleasant 59 years old female with past medical history of multiple medical problems as below. Patient presents because of nausea vomiting started since Monday night, about 4 to 5 days ago Yesterday patient was only drinking water and a whole to stop her emesis. Patient was not coherent her hip and heels hurts she did not sleep well Her last bowel movement was yesterday and look normal with no diarrhea. Patient felt pain all over her body Patient denies dysuria or urgency no chest pain or dyspnea or coughing Patient feels dizzy when she tries to get up. No weakness or tingling in the limbs She had some abdominal pain nonradiating in the epigastric area with no known precipitating or relieving factor, felt just as ache She denies smoking alcohol illicit drug She had recent history for her lower abdominal abscess, her surgeon was Dr. Cook, Last time she was in this hospital was also for nausea vomiting and diarrhea. Left inguinal abscess status post I&D and CAT scan showed improvement with no fluid collection and no need for antibiotics upon discharge. Also treated for Shalonda UTI. - Labs CBC & Chem 7: 01/21/25 06:24 01/21/25 06:24 Labs: Abnormal Lab Results - Last 24 Hours (Table) 01/20/25 01/20/25 01/20/25 Range/Units 11:24 11:24 11:44 RBC (4.10-5.20) 10*6/uL Hgb 10.5 L (12.0-15.0) g/dL Hct 34.3 L (37.2-46.3) % MCH 25.5 L (27.0-32.0) pg MCHC 30.6 L (32.0-37.0) g/dL Plt Count 711 H (140-440) 10*3/uL MPV 9.3 L (9.5-12.2) fL Chloride (98-107) mmol/L Carbon Dioxide 19 L (22-30) mmol/L Glucose 101 H (74-99) mg/dL Calcium 16.1 H* (8.4-10.2) mg/dL Ionized Calcium Nelson (4.5-5.3) mg/dL Magnesium (1.6-2.3) mg/dL AST 46 H (14-36) U/L Urine Appearance Cloudy H (Clear) Urine Protein Trace H (Negative) Urine Ketones 2+ H (Negative) Urine Bilirubin 1+ H (Negative) Ur Leukocyte Esterase Moderate H (Negative) Urine RBC 6 H (0-5) /hpf Urine WBC 16 H (0-5) /hpf Ur Squamous Epith Cells 5 H (0-4) /hpf Calcium Oxalate Crystal Occasional H (None) /hpf Hyaline Casts 28 H (0-2) /lpf Urine Mucus Rare H (None) /hpf 01/20/25 01/21/25 01/21/25 Range/Units 13:09 06:24 06:24 RBC 3.41 L (4.10-5.20) 10*6/uL Hgb 8.9 L D (12.0-15.0) g/dL Hct 28.8 L (37.2-46.3) % MCH 26.1 L (27.0-32.0) pg MCHC 30.9 L (32.0-37.0) g/dL Plt Count 647 H (140-440) 10*3/uL MPV (9.5-12.2) fL Chloride 111 H (98-107) mmol/L Carbon Dioxide 21 L (22-30) mmol/L Glucose (74-99) mg/dL Calcium 13.9 H* (8.4-10.2) mg/dL Ionized Calcium Nelson 8.4 H* 8.0 H* (4.5-5.3) mg/dL Magnesium 1.3 L 1.5 L (1.6-2.3) mg/dL AST (14-36) U/L Urine Appearance (Clear) Urine Protein (Negative) Urine Ketones (Negative) Urine Bilirubin (Negative) Ur Leukocyte Esterase (Negative) Urine RBC (0-5) /hpf Urine WBC (0-5) /hpf Ur Squamous Epith Cells (0-4) /hpf Calcium Oxalate Crystal (None) /hpf Hyaline Casts (0-2) /lpf Urine Mucus (None) /hpf Assessment and Plan Assessment: Nausea vomiting Hypercalcemia Recurrent lower abdominal abscess/fistula. Coronary artery disease Fibromyalgia Migraine with migraine headache Triggering syndrome Vertigo Plan: Continue with normal saline 130 Check stool WBC and C. difficile PTH is normal. Check vitamin D Consult nephrology team Consult infectious disease team and general surgery team Hold Seroquel and Requip if possible which might contribute to the GI symptoms Labs and medication were reviewed.. Continue same treatment. Continue with symptomatic treatment. Resume home medication. Monitor labs and vitals. DVT and GI prophylaxis. Further recommendations as per clinical course of the patient DVT prophylaxis: Subcutaneous heparin GI Prophylaxis: Ppi PT/OT: Pending Prognosis is guarded
[2025-01-21] MEDS ORDERED: ACETAMINOPHEN TAB 325 MG TAB PO PRN (08:56)
[2025-01-21] MEDS: MAGNESIUM SULFATE-D5W PMX 1 GM in DEXTROSE/WATER 1 100ML.BAG IVPB ONE (09:34)
[2025-01-21] MEDS: BUTALB/APAP/CAFF 50-325-40MG TAB PO PRN (09:36)
[2025-01-21] MEDS: BUTALB/APAP/CAFF 50-325-40MG TAB PO STA (10:00)
--- NOTE | 2025-01-21 13:01 | P.NPCON ---
History of Present Illness - Reason for Consult Consult date: 01/21/25 (hypercalcemia) - History of Present Illness Ms. Irizarry is a 59yo F who was consulted for for hyercalcemia. She has a pmhx of C AD, migraines, fibromyalgia. She was admitted due to nausea and vomiting since 01/15/25, although the vomiting has resolved since admission. She complains of a migraine, resulting in a loss of appetite and nausea, but she ate a small amount for dinner last night. She says she feels dehydrated, weak, and lightheaded. She denies chest pain, SOB, abdominal pain, dysuria, constipation, muscle or bone we akness, or polyuria. Serum calcium 16.1 on admission and decreased to 13.9 today. Currently mainta ined on IV normal saline. Vitamin D 25-OH 36.1 Pts admits to taking tums. No history of cancer. PTH is normal range of 30.8. Hydrochlorothiazide not noted on home meds. Review of previous labs shows evidence of on and off hypercalcemia since 2015. Nonobstructive renal calculi noted on renal ultrasound 08/12/24 Past Medical History Past Medical History: Coronary Artery Disease (CAD), Chest Pain / Angina, Fibromyalgia, Musculoskeletal Disorder, Renal Disease Additional Past Medical History / Comment(s): Migraines, Shrgren syndrome, DDD, MS,. Right BBB, CKD, Tarsal tunnel syndrome, vertigo History of Any Multi-Drug Resistant Organisms: ESBL Date of last positivie culture/infection: 03/01/22 ESBL E.coli MDRO Source:: URINE Past Surgical History: Appendectomy, Hysterectomy, Orthopedic Surgery Additional Past Surgical History / Comment(s): right ankle, abdominal laparoscopies, Presacral Neurectomy, Cryosurgery. abdominal abcess removal Past Anesthesia/Blood Transfusion Reactions: No Reported Reaction Past Psychological History: No Psychological Hx Reported Additional Psychological History / Comment(s): Pt resides alone. She uses a cane to ambulate. Smoking Status: Never smoker Past Alcohol Use History: None Reported Additional Past Alcohol Use History / Comment(s): Patient has been a nonsmoker, no marijuana or illicit drug use, no alcohol use. Patient is single. Past Drug Use History: None Reported - Past Family History Father Family Medical History: AICD/Pacemaker, Congestive Heart Failure (CHF), COPD, Diabetes Mellitus, Myocardial Infarction (IA) Additional Family Medical History / Comment(s): Father at age 83 in his sle ep. He has history of AICD. Mother Family Medical History: Hypertension Additional Family Medical History / Comment(s): Mother is alive at age 77 with history of hypertension and bronchiectasis. Patient has 2 brothers with no major medical problems. Patient does not have any sisters. Patient is one daughter with no major medical problems. Medications and Allergies Home Medications Medication Instructions Recorded Confirmed Type rOPINIRole HCL [Requip] 10 mg PO HS 09/27/17 01/20/25 History Dextroamphetamine Sulfate 15 mg PO BID 12/20/18 01/20/25 History [Dexedrine] Cetirizine HCl 10 mg PO HS 03/23/21 01/20/25 History Diclofenac Sodium Gel [Voltaren 1% 2 gm TOPICAL BID PRN 03/23/21 01/20/25 History Gel] Ascorbic Acid [Vitamin C] 1,000 mg PO DAILY 08/12/24 01/20/25 History Cyclobenzaprine [Flexeril] 10 mg PO TID PRN 08/12/24 01/20/25 History Melatonin 20 mg PO HS 08/12/24 01/20/25 History Prebiotic/Probiotic 1 cap PO DAILY 08/12/24 01/20/25 History Multivitamins, Thera [Multivitamin 1 tab PO DAILY 12/02/24 01/20/25 History (formulary)] Potassium Chloride ER [K-Dur 20] 20 meq PO DAILY 12/02/24 01/20/25 History ondansetron HCL [Zofran] 8 mg PO BID 12/02/24 01/20/25 History Ferrous Sulfate [Iron (65 MG 325 mg PO W/LUNCH 30 Days #30 tab 12/07/24 01/20/25 Rx Elemental)] Metoprolol Tartrate [Lopressor] 25 mg PO DAILY 01/01/25 01/20/25 History QUEtiapine FUMARATE [SEROquel] 25 mg PO HS 01/01/25 01/20/25 History SUMAtriptan succinate [Imitrex] 25 mg PO TID PRN 01/01/25 01/20/25 History Magnesium Oxide [Mag-Ox] 400 mg PO TID 3 Days #9 tab 01/06/25 01/20/25 Rx Pantoprazole Sodium [Protonix] 40 mg PO BID #60 tab 01/06/25 01/20/25 Rx Allergies Allergy/AdvReac Type Severity Reaction Status Date / Time Sulfa (Sulfonamide Allergy Swelling Verified 01/20/25 14:09 Antibiotics) aspirin AdvReac Abdominal Verified 01/20/25 14:09 Pain hydralazine AdvReac Rapid Verified 01/20/25 14:09 Heart Rate Physical Exam Vitals: Vital Signs Temp Pulse Pulse Resp BP BP Pulse Ox 01/21/25 06:55 98.6 F 107 H 16 112/80 94 L 01/21/25 02:00 98.9 F 110 H 16 100/66 94 L 01/20/25 20:35 98.9 F 113 H 19 102/70 95 01/20/25 18:30 98.8 F 112 H 16 115/80 94 L 01/20/25 17:00 107 H 16 109/70 94 L 01/20/25 15:00 103 H 16 138/86 95 01/20/25 13:00 104 H 18 111/75 94 L 01/20/25 12:08 108 H 18 113/73 99 Intake and Output 01/20/25 01/21/25 01/21/25 22:59 06:59 14:59 Other: Voiding Method Toilet # Voids 2 2 Weight 63.503 kg Vital signs stable with tachycardia General: No acute distress. HEENT: Head exam is unremarkable. LUNGS: No audible rhonchi or wheezes. HEART: Tachycardia ABDOMEN: Nontender, some discomfort in LLQ post I&D inguinal abscess in December. EXTREMITITES: no edema Results - Lab Results Most recent lab results Calcium 13.9 mg/dL (8.4-10.2) H* 01/21/25 06:24 Phosphorus 2.8 mg/dL (2.5-4.5) 01/20/25 13:09 Magnesium 1.5 mg/dL (1.6-2.3) L 01/21/25 06:24 01/21/25 06:24 01/22/25 06:08 Assessment and Plan Assessment: 1. Hypercalcemia, chronic noted from 2015. Serum calcium was 16.1 on admission, 13.9 today. Intact PTH 30.8. It should have been much lower given the significantly elevated calcium, so there is a possibility of underlying primary hyperparathyroidism. Patient should have complete workup given evidence of renal calcification and fairly young age. Vitamin D 36.1. Bilateral renal calculi noted on renal ultrasound on 08/12/24. Patient is maintai nedra on calcium supplementation which will be discontinued. 2. Mild hypomagenisum secondary to proton pump inhibitors. Maintained on magnesium oxide supplementation. 3. Anemia, rule out iron deficiency. 4. Bilateral renal calculi, nonobstructive. Plan: D/c Tums Continue IV fluids Continue to monitor calcium and magnesium Check iron profile Check immunofixation urine and serum, r/o multiple myeloma Check CHRISTIANO level, r/o sarcoidosis Hold Pamidronate as long as calcium is decreasing Thank you for the consultation. We will continue to follow the patient during her hospitalization. Hu Koo MD Internal Medicine PGY1 Nephrology service Patient is seen and examined. Agree with resident's assessment and plan.
[2025-01-21 16:04] LABS: Iron 29.0 UG/DL (50-170); Total Iron Binding Capacity 251.0 UG/DL (228-460)
[2025-01-21] MEDS: IOPAMIDOL CONTRAST (ORAL USE) VIAL PO PRN (16:06)
--- NOTE | 2025-01-21 18:53 | CT ---
EXAMINATION TYPE: CT abdomen pelvis w con DATE OF EXAM: 01/21/2025 6:15 PM COMPARISON: 12/30/2024, 12/07/2024 CLINICAL INDICATION: Female, 59 years old with history of Left lower quadrant chronic wound question fistula, abdominal pain, nausea, vomiting TECHNIQUE: Axial images were obtained from above the diaphragm to the pubic rami in the axial plane a t 5 mm thick sections. Reconstructed images are reviewed on the computer in the coronal plane. CONTRAST: 100ml mL of Isovue 300. Study performed with Oral Contrast DLP: 762.6 mGycm, Automated exposure control for dose reduction was used. FINDINGS: Limited CT sections are obtained the lung bases. The lung bases are clear. There is a moderate-size d hiatal hernia present. Coronary artery calcifications present. CT ABDOMEN: Liver: Normal Spleen: Normal Pancreas: Slightly atrophic Adrenal glands: The adrenal glands are normal. Gallbladder: Normal Kidneys: No masses are evident. No hydronephrosis is present. No cysts are present. There is a non obstructing renal stone anterior mid right kidney. Delayed images through the kidneys appear unremark able. Aorta: Vascular calcification is within the aorta. Inferior vena cava: Normal. CT PELVIS: Left lower quadrant postsurgical changes extending towards the peritoneal air. There is th ickening anterior to the peritoneal wall. Small collection 49 Hounsfield units could be a small 1.2 c m abscess at the surgical site. This is a change from comparison. Small amount of subcutaneous air is present which is an interval change. Loops of bowel within the abdomen and pelvis are normal. Multiple diverticula are throughout the col on including the sigmoid colon and descending colon as well as the transverse colon. Suspicious adjac ent laboratory changes to suggest acute diverticulitis is not evident. There are loops of bowel whi ch are incompletely distended or lack oral contrast limiting their evaluation. Patient was unable to tolerate oral contrast. Appendix: Not identified. No suspicious dilated tubular structure or inflammatory change. Urinary bladder: Decompressed. Some wall thickening may be present and may be related to incomplete d istention. Genitourinary structures: Uterus and ovaries are not identified. Osseous structures: No suspicious lytic or sclerotic lesions. Scoliosis and degenerative disc changes within the lumbar spine. There is a compression deformity T10. IMPRESSION: 1. 1.2 cm hypodense area at the postsurgical site left lower anterior pelvic wall. This is new from comparison. Some subcutaneous air is also forming. Findings suggestive for developing abscess, an int erval change from the recent comparison of 12/31/2019. [facility], , 01/21/2025 6:51 PM
--- NOTE | 2025-01-21 22:27 | P.CONS ---
History of Present Illness - Reason for Consult Consult date: 01/21/25 Lower abdominal fistula Requesting physician: Alfredo E Sheet - Chief Complaint Nausea and vomiting x days - History of Present Illness patient is a 59-year-old female with a past medical history significant for Coronary Artery Disease (CAD), Chest Pain / Angina, Fibromyalgia, Musculoskeletal Disorder, Renal Disease did have history of recurrent left lower quadrant abscess likely diverticular related last drainage procedure done 12/03/2024 due to E. coli Klebsiella and Proteus subsequently did have a CT abdominal pelvis that shows overall resolution of the abscess patient was also admitted to the hospital 12/31/2024 with intractable nausea and vomiting which was initially thought to be related to patient not taking her ADHD medication she did have a positive UA but no significant urine symptoms urine culture positive for yeast and the patient symptom as well as nausea vomiting improved after she was started on Diflucan patient now presenting back to the hospital on 01/20/2025 concerning for intractable nausea and vomiting that the pain has been going on for the last few days and the patient mention she was unable to hold anything down patient also complaining of diarrhea but no bloody mucus in the stools denies significant abdominal pain patient wound to the left lower quadrant area seem to be healing denies any worsening drainage on presentation to the hospital patient was afebrile no fever Hemoccult subsequently patient was tachycardic but not hypotensive or hypoxic patient did have a white count of 6.42 creatinine 0.67 electrolytes are normal she did have elevated calcium of 16.1 AST is 46 urine has been positive however the P denies any urinary symptoms patient has been admitted to hospital infectious he was consulted concern for an abdominal fistula stool cultures are pending stool for C. difficile not collected in the current state abdominal pelvis Review of Systems Positive point and negatives has been mentioned in the HPI, complete review of systems was performed and all other systems are negative Past Medical History Past Medical History: Coronary Artery Disease (CAD), Chest Pain / Angina, Fibromyalgia, Musculoskeletal Disorder, Renal Disease Additional Past Medical History / Comment(s): Migraines, Shrgren syndrome, DDD, MS,. 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 Source:: URINE Past Surgical History: Appendectomy, Hysterectomy, Orthopedic Surgery Additional Past Surgical History / Comment(s): right ankle, abdominal laparoscopies, Presacral Neurectomy, Cryosurgery. abdominal abcess removal Past Anesthesia/Blood Transfusion Reactions: No Reported Reaction Past Psychological History: No Psychological Hx Reported Additional Psychological History / Comment(s): Pt resides alone. She uses a cane to ambulate. Smoking Status: Never smoker Past Alcohol Use History: None Reported Additional Past Alcohol Use History / Comment(s): Patient has been a nonsmoker, no marijuana or illicit drug use, no alcohol use. Patient is single. Past Drug Use History: None Reported - Past Family History Father Family Medical History: AICD/Pacemaker, Congestive Heart Failure (CHF), COPD, Diabetes Mellitus, Myocardial Infarction ([place]) Additional Family Medical History / Comment(s): Father at age 83 in his sleep. He has history of AICD. Mother Family Medical History: Hypertension Additional Family Medical History / Comment(s): Mother is alive at age 77 with history of hypertension and bronchiectasis. Patient has 2 brothers with no major medical problems. Patient does not have any sisters. Patient is one daughter with no major medical problems. Medications and Allergies Home Medications Medication Instructions Recorded Confirmed Type rOPINIRole HCL [Requip] 10 mg PO HS 09/27/17 01/20/25 History Dextroamphetamine Sulfate 15 mg PO BID 12/20/18 01/20/25 History [Dexedrine] Cetirizine HCl 10 mg PO HS 03/23/21 01/20/25 History Diclofenac Sodium Gel [Voltaren 1% 2 gm TOPICAL BID PRN 03/23/21 01/20/25 History Gel] Ascorbic Acid [Vitamin C] 1,000 mg PO DAILY 08/12/24 01/20/25 History Cyclobenzaprine [Flexeril] 10 mg PO TID PRN 08/12/24 01/20/25 History Melatonin 20 mg PO HS 08/12/24 01/20/25 History Prebiotic/Probiotic 1 cap PO DAILY 08/12/24 01/20/25 History Multivitamins, Thera [Multivitamin 1 tab PO DAILY 12/02/24 01/20/25 History (formulary)] Potassium Chloride ER [K-Dur 20] 20 meq PO DAILY 12/02/24 01/20/25 History ondansetron HCL [Zofran] 8 mg PO BID 12/02/24 01/20/25 History Ferrous Sulfate [Iron (65 MG 325 mg PO W/LUNCH 30 Days #30 tab 12/07/24 01/20/25 Rx Elemental)] Metoprolol Tartrate [Lopressor] 25 mg PO DAILY 01/01/25 01/20/25 History QUEtiapine FUMARATE [SEROquel] 25 mg PO HS 01/01/25 01/20/25 History SUMAtriptan succinate [Imitrex] 25 mg PO TID PRN 01/01/25 01/20/25 History Magnesium Oxide [Mag-Ox] 400 mg PO TID 3 Days #9 tab 01/06/25 01/20/25 Rx Pantoprazole Sodium [Protonix] 40 mg PO BID #60 tab 01/06/25 01/20/25 Rx Allergies Allergy/AdvReac Type Severity Reaction Status Date / Time Sulfa (Sulfonamide Allergy Swelling Verified 01/20/25 14:09 Antibiotics) aspirin AdvReac Abdominal Verified 01/20/25 14:09 Pain hydralazine AdvReac Rapid Verified 01/20/25 14:09 Heart Rate Physical Exam Vitals: Vital Signs Temp Pulse Pulse Resp BP BP Pulse Ox 01/21/25 06:55 98.6 F 107 H 16 112/80 94 L 01/21/25 02:00 98.9 F 110 H 16 100/66 94 L 01/20/25 20:35 98.9 F 113 H 19 102/70 95 01/20/25 18:30 98.8 F 112 H 16 115/80 94 L 01/20/25 17:00 107 H 16 109/70 94 L 01/20/25 15:00 103 H 16 138/86 95 01/20/25 13:00 104 H 18 111/75 94 L Intake and Output 01/20/25 01/21/25 01/21/25 22:59 06:59 14:59 Other: Voiding Method Toilet # Voids 2 2 Weight 63.503 kg GENERAL DESCRIPTION: Middle-age female lying in bed, no distress. No tachypnea or accessory muscle of respiration use. HEENT: Shows Pallor , no scleral icterus. Oral mucous membrane is dry. NECK: Trachea central, no thyromegaly. LUNGS: Unlabored breathing. Clear to auscultation anteriorly. No wheeze or crackle. HEART: S1, S2, regular rate and rhythm. No loud murmur ABDOMEN: Soft, no tenderness , left lower quadrant abdominal wound decrease in size and depth no significant drainage EXTREMITIES: No edema of feet. SKIN: No rash, no masses palpable. NEUROLOGICAL: The patient is awake, alert, oriented x3, mood and affect normal. Results CBC & Chem 7: 01/21/25 06:24 01/21/25 06:24 Labs: Abnormal Lab Results - Last 24 Hours (Table) 01/20/25 01/21/25 01/21/25 Range/Units 13:09 06:24 06:24 RBC 3.41 L (4.10-5.20) 10*6/uL Hgb 8.9 L D (12.0-15.0) g/dL Hct 28.8 L (37.2-46.3) % MCH 26.1 L (27.0-32.0) pg MCHC 30.9 L (32.0-37.0) g/dL Plt Count 647 H (140-440) 10*3/uL Chloride 111 H (98-107) mmol/L Carbon Dioxide 21 L (22-30) mmol/L Calcium 13.9 H* (8.4-10.2) mg/dL Ionized Calcium Nelson 8.4 H* 8.0 H* (4.5-5.3) mg/dL Magnesium 1.3 L 1.5 L (1.6-2.3) mg/dL Assessment and Plan (1) Open abdominal wall wound Current Visit: Yes Status: Acute Code(s): S31.109A - UNSP OPN WND ABD WALL, UNSP Q W/O PENET PERIT CAV, INIT SNOMED Code(s): 540829471 (2) Acute nausea with nonbilious vomiting Current Visit: Yes Status: Acute Code(s): R11.2 - NAUSEA WITH VOMITING, UNSPECIFIED SNOMED Code(s): 32035631 Plan: 1patient presented to hospital with tractable nausea vomiting and also having diarrhea with a question of gastroenteritis in this patient also have a nonhealing wound to the left lower quadrant area with a question of possible abdominal wall wound infection/cellulitis underlying abscess not on excluded 2-we will obtain CT of abdominal pelvis with oral and IV contrast to make sure no evidence of any abdominal abscess 3-check stool studies 4-will empirically start the patient on Zosyn while waiting for the workup to be completed We will follow on clinical condition and cultures to further adjust medication if needed Thank you for this consultation we will follow the patient along with you Dictation was produced using [employer] dictation software. please excuse any grammatical, word or spelling errors. Time with Patient: Greater than 30
[2025-01-21] MEDS: PIPERACILLIN-TAZOBACTAM 3.375 GM in SODIUM CHLORIDE 0.9% 100 ML IVPB SCH (23:31)
[2025-01-22 07:14] LABS: African American GFR (CKD) >90 (>60 ml/min/1.73 sqM); Anion Gap 12 mmol/L; Blood Urea Nitrogen 3 mg/dL (7-17); Calcium 13.0 mg/dL (8.4-10.2); Carbon Dioxide 22 mmol/L (22-30); Chloride 106 mmol/L (98-107); Glucose 84 mg/dL (74-99); Non-African American GFR(CKD) >90 (>60 ml/min/1.73 sqM); Potassium 3.8 mmol/L (3.5-5.1); Sodium 140 mmol/L (137-145)
[2025-01-22] MEDS: MAGNESIUM SULFATE-D5W PMX 1 GM in DEXTROSE/WATER 1 100ML.BAG IVPB ONE (10:25)
--- NOTE | 2025-01-22 10:25 | P.PN ---
Subjective Patient is a pleasant 59 years old female with past medical history of multiple medical problems as below. Patient presents because of nausea vomiting started since Monday night, about 4 to 5 days ago Yesterday patient was only drinking water and a whole to stop her emesis. Patient was not coherent her hip and heels hurts she did not sleep well Her last bowel movement was yesterday and look normal with no diarrhea. Patient felt pain all over her body Patient denies dysuria or urgency no chest pain or dyspnea or coughing Patient feels dizzy when she tries to get up. No weakness or tingling in the limbs She had some abdominal pain nonradiating in the epigastric area with no known precipitating or relieving factor, felt just as ache She denies smoking alcohol illicit drug She had recent history for her lower abdominal abscess, her surgeon was Dr. Cook, Last time she was in this hospital was also for nausea vomiting and diarrhea. Left inguinal abscess status post I&D and CAT scan showed improvement with no fluid collection and no need for antibiotics upon discharge. Also treated for Shalonda UTI. Patient's tachycardia not febrile CBC BMP LFT were unremarkable. Urine is concentrated sample. Magnesium 1.3. TSH is normal at 0.8 and parathyroid hormone is normal at 30. EKG showing sinus tachycardia [address]-T changes. 7/8 Patient with no abdominal pain and vomiting stopped. She did not start eating it because she had significant migraine headache she is having history of migraine but did not have a headache for a while. Her PCP started her on Imitrex but she did not take it because she did not have headache recently. Patient states is the same migraine headache. She still have lower abdominal drainage from her lower abdominal wound, mild erythema around the orifice, dressing in place No other new complaints Calcium still elevated with mL calcium about 8 Patient remains on IV fluids. Vitamin D levels were ordered and is pending Nephrology, ID and surgery team on the case Will start pain management Review of systems CONSTITUTIONAL: No fever, no malaise, no fatigue. HEENT: No recent visual problems or hearing problems. Denied any sore throat. CARDIOVASCULAR: No orthopnea, PND, no palpitations, no syncope. PULMONARY: No shortness of breath, no cough, no hemoptysis. HEMATOLOGICAL: Denies any bleeding or petechiae. GENITOURINARY: Denies any burning micturition, frequency, or urgency. MUSCULOSKELETAL/RHEUMATOLOGICAL: Denies any joint pain, swelling, or any muscle pain. ENDOCRINE: Denies any polyuria or polydipsia. Active Medications Generic Name Dose Route Start Last Admin Trade Name Freq PRN Reason Stop Dose Admin Ferrous Sulfate 325 mg 01/20/25 16:15 01/20/25 16:36 Ferrous Sulfate 325 Mg Tab PO 325 mg W/LUNCH GRIFFIN Administration Sodium Chloride 1,000 mls @ 130 mls/hr 01/20/25 15:15 01/21/25 01:47 Saline 0.9% IV Not Given .[id number] [facility] Magnesium Sulfate/Dextrose 1 100 mls @ 100 mls/hr 01/21/25 08:51 gm/ IV Solution IVPB 01/21/25 09:50 ONCE ONE Lactobacillus Acidophilus 1 each 01/21/25 09:00 Lactobacillus Acidophilus/Pect 1 Each Capsule PO DAILY [facility] Magnesium Oxide 400 mg 01/20/25 16:15 01/20/25 21:30 Magnesium Oxide 400 Mg Tab PO Not Given TID [facility] Melatonin 20 mg 01/20/25 21:00 01/20/25 21:30 Melatonin 5 Mg Tablet PO 20 mg HS GRIFFIN Administration Metoprolol Tartrate 25 mg 01/21/25 09:00 Metoprolol Tartrate 25 Mg Tab PO DAILY [facility] Morphine Sulfate 2 mg 01/20/25 21:17 01/20/25 21:30 Morphine Sulfate 2 Mg/Ml Syringe IVP 2 mg Q6HR PRN Administration Pain/Discomfort Multivitamins 1 each 01/21/25 09:00 Multivitamins, Thera 1 Each Tab PO DAILY [facility] Naloxone HCl 0.2 mg 01/20/25 15:03 Naloxone 0.4 Mg/Ml 1 Ml Vial IV Q2M PRN Opioid Reversal Ondansetron HCl 4 mg 01/20/25 15:03 01/20/25 17:58 Ondansetron 4 Mg/2 Ml Vial IVP 4 mg Q8HR PRN Administration Nausea And Vomiting Ondansetron HCl 8 mg 01/20/25 21:00 01/20/25 21:30 Ondansetron Odt 8 Mg Tab.Rapdis PO 8 mg BID GRIFFIN Administration Pantoprazole Sodium 40 mg 01/20/25 17:30 01/21/25 06:42 Pantoprazole 40 Mg Tablet PO Not Given AC-BID GRIFFIN Temazepam 15 mg 01/20/25 19:03 Temazepam 15 Mg Cap PO HS PRN Insomnia Objective - Vital Signs Vital signs: Vital Signs Temp 98.4 F 01/22/25 02:00 Pulse 107 H 01/22/25 02:00 Resp 18 01/22/25 02:00 BP 129/82 01/22/25 02:00 Pulse Ox 95 01/22/25 02:00 FiO2 Intake & Output 01/21/25 01/22/25 01/22/25 18:59 06:59 18:59 Other: Voiding Method Toilet Toilet # Voids 2 - Exam Patient is a pleasant 59 years old female with past medical history of multiple medical problems as below. Patient presents because of nausea vomiting started since Monday night, about 4 to 5 days ago Yesterday patient was only drinking water and a whole to stop her emesis. Patient was not coherent her hip and heels hurts she did not sleep well Her last bowel movement was yesterday and look normal with no diarrhea. Patient felt pain all over her body Patient denies dysuria or urgency no chest pain or dyspnea or coughing Patient feels dizzy when she tries to get up. No weakness or tingling in the limbs She had some abdominal pain nonradiating in the epigastric area with no known precipitating or relieving factor, felt just as ache She denies smoking alcohol illicit drug She had recent history for her lower abdominal abscess, her surgeon was Dr. Cook, Last time she was in this hospital was also for nausea vomiting and diarrhea. Left inguinal abscess status post I&D and CAT scan showed improvement with no fluid collection and no need for antibiotics upon discharge. Also treated for Shalonda UTI. - Labs CBC & Chem 7: 01/21/25 06:24 01/22/25 06:08 Labs: Abnormal Lab Results - Last 24 Hours (Table) 01/21/25 01/22/25 01/22/25 Range/Units 06:24 06:08 06:08 BUN 3 L (7-17) mg/dL Calcium 13.0 H (8.4-10.2) mg/dL Ionized Calcium Nelson 7.2 H* (4.5-5.3) mg/dL Iron 29 L (50-170) UG/DL % Saturation 11.55 L (12.00-45.00) Transferrin 179.0 L (204.0-354.0) mg/dL Assessment and Plan Assessment: Nausea vomiting Hypercalcemia Recurrent lower abdominal abscess/fistula. Coronary artery disease Fibromyalgia Migraine with migraine headache Triggering syndrome Vertigo Plan: Continue with normal saline 130 Check stool WBC and C. difficile PTH is normal. Check vitamin D Consult nephrology team Consult infectious disease team and general surgery team Hold Seroquel and Requip if possible which might contribute to the GI symptoms Labs and medication were reviewed.. Continue same treatment. Continue with symptomatic treatment. Resume home medication. Monitor labs and vitals. DVT and GI prophylaxis. Further recommendations as per clinical course of the patient DVT prophylaxis: Subcutaneous heparin GI Prophylaxis: Ppi PT/OT: Pending Prognosis is guarded
[2025-01-22] MEDS: SODIUM CHLORIDE 0.9% 250 ML with PAMIDRONATE 30 MG IV ONE (11:47)
--- NOTE | 2025-01-22 14:05 | P.PN ---
Subjective Progress Note Date: 01/22/25 Patient still has complaints of nausea. On exam vital signs appear stable. Abdomen soft. Patient scheduled for EGD in the a.m. Objective - Vital Signs Vital signs: Vital Signs Temp 98.4 F 01/22/25 02:00 Pulse 107 H 01/22/25 02:00 Resp 18 01/22/25 02:00 BP 129/82 01/22/25 02:00 Pulse Ox 95 01/22/25 02:00 FiO2 Intake & Output 01/21/25 01/22/25 01/22/25 18:59 06:59 18:59 Other: Voiding Method Toilet Toilet # Voids 2 - Labs CBC & Chem 7: 01/21/25 06:24 01/22/25 06:08 Labs: Abnormal Lab Results - Last 24 Hours (Table) 01/21/25 01/21/25 01/22/25 Range/Units 06:24 06:24 06:08 BUN 3 L (7-17) mg/dL Calcium 13.0 H (8.4-10.2) mg/dL Ionized Calcium Nelson (4.5-5.3) mg/dL Iron 29 L (50-170) UG/DL % Saturation 11.55 L (12.00-45.00) Transferrin 179.0 L (204.0-354.0) mg/dL Angiotensin Convert Enz 63 H (8-52) U/L 01/22/25 Range/Units 06:08 BUN (7-17) mg/dL Calcium (8.4-10.2) mg/dL Ionized Calcium Nelson 7.2 H* (4.5-5.3) mg/dL Iron (50-170) UG/DL % Saturation (12.00-45.00) Transferrin (204.0-354.0) mg/dL Angiotensin Convert Enz (8-52) U/L
--- NOTE | 2025-01-22 17:47 | XR ---
EXAMINATION TYPE: XR chest 2V DATE OF EXAM: 01/22/2025 5:12 PM COMPARISON: 01/01/2025. CLINICAL INDICATION: Female, 59 years old with history of r/o sarcoidosis; shortness of breath. TECHNIQUE: XR chest 2V Frontal and lateral views of the chest. FINDINGS: Lungs/Pleura: There is no evidence of pleural effusion, focal consolidation, or pneumothorax. Pulmonary vascularity: Unremarkable. Heart/mediastinum: Cardiomediastinal silhouette is unremarkable. Musculoskeletal: No acute osseous pathology. IMPRESSION: 1. No acute cardiopulmonary disease/process. 2. Cannot rule out sarcoidosis on a single chest radiograph. [facility], , 01/22/2025 5:45 PM
--- NOTE | 2025-01-22 18:28 | P.PN ---
Subjective Progress Note Date: 01/22/25 Patient consulted for hypercalcemia. She is feeling slightly better this morning. She denies chest pain, SOB, dysuria, polyuria, constipation, bone pain, or abdominal pain. She has adequate urine output. Serum calcium 16.1 on admission, 13 today. Currently maintained on IV normal saline and a dose of pamidronate was given this morning. Objective - Vital Signs Vital signs: Vital Signs Temp 98.4 F 01/22/25 02:00 Pulse 107 H 01/22/25 02:00 Resp 18 01/22/25 02:00 BP 129/82 01/22/25 02:00 Pulse Ox 95 01/22/25 02:00 FiO2 Intake & Output 01/21/25 01/22/25 01/22/25 18:59 06:59 18:59 Other: Voiding Method Toilet Toilet # Voids 2 - Exam Vital signs stable General: No acute distress. HEENT: Head exam is unremarkable. LUNGS: No audible rhonchi or wheezes. HEART: Normal S1 and S2 heart sounds. ABDOMEN: Nontender, some discomfort in LLQ post I&D inguinal abscess in December. EXTREMITITES: no edema - Labs CBC & Chem 7: 01/21/25 06:24 01/22/25 06:08 Labs: Abnormal Lab Results - Last 24 Hours (Table) 01/21/25 01/21/25 01/22/25 Range/Units 06:24 06:24 06:08 BUN 3 L (7-17) mg/dL Calcium 13.0 H (8.4-10.2) mg/dL Ionized Calcium Nelson (4.5-5.3) mg/dL Iron 29 L (50-170) UG/DL % Saturation 11.55 L (12.00-45.00) Transferrin 179.0 L (204.0-354.0) mg/dL Angiotensin Convert Enz 63 H (8-52) U/L 01/22/25 Range/Units 06:08 BUN (7-17) mg/dL Calcium (8.4-10.2) mg/dL Ionized Calcium Nelson 7.2 H* (4.5-5.3) mg/dL Iron (50-170) UG/DL % Saturation (12.00-45.00) Transferrin (204.0-354.0) mg/dL Angiotensin Convert Enz (8-52) U/L Assessment and Plan Assessment: 1. Hypercalcemia, chronic noted from 2016. Serum calcium was 16.1 on admission, 13 today. Intact PTH 30.8. It should have been much lower given the significantly elevated calcium, so there is a possibility of underlying primary hyperparathyroidism. Patient should have complete workup given evidence of renal calcification and fairly young age. Vitamin D 36.1. Bilateral renal calculi noted on renal ultrasound on 08/12/24. Patient is maintained on calcium supplementation which is discontinued. CHRISTIANO level is elevated, high likelihood of sarcoidosis. 2. Mild hypomagenisum 2/2 proton pump inhibitors. Maintained on magnesium oxide supplementation. 3. Iron deficiency anemia. Chronic per chart review. Ferrous sulfate taken at home. Currently taking ferrous sulfate inpt. 4. Bilateral renal calculi, nonobstructive. Plan: Continue IV flluids Continue off of calcium supplements Pending immunofixation urine and serum, r/o multiple myeloma CHRISTIANO levels elevated. Vit D 1-25 normal range. Ordering Chest xray for suspicion of sarcoidosis. If diagnosis of sarcoidosis is made, will begin steroids and recommend a pulmonary evaluation. Calcium decreased to 13, dose of Pamidronate given this morning. Hu Koo MD Internal Medicine PGY1 Nephrology service Patient is seen and examined. Agree with resident's assessment and plan.
[2025-01-23 06:24] LABS: Basophils # (A) 0.05 10*3/uL (0.00-0.10); Basophils % (A) 0.9 %; Eosinophils # (A) 0.46 10*3/uL (0.04-0.35); Eosinophils % (A) 8.4 %; HCT 28.1 % (37.2-46.3); HGB 8.7 g/dL (12.0-15.0); Lymphocytes # (A) 0.80 10*3/uL (0.90-5.00); Lymphocytes % (A) 14.5 %; MCH 25.8 pg (27.0-32.0); MCHC 31.0 g/dL (32.0-37.0); MCV 83.4 fL (80.0-97.0); Monocytes # (A) 0.36 10*3/uL (0.20-1.00); Monocytes % (A) 6.5 %; Neutrophils # (A) 3.82 10*3/uL (1.80-7.70); Neutrophils % (A) 69.5 %; Platelet Count 520 10*3/uL (140-440); RBC 3.37 10*6/uL (4.10-5.20); RDW 16.0 % (11.5-14.5); WBC 5.50 10*3/uL (4.50-10.00)
[2025-01-23 06:48] LABS: African American GFR (CKD) >90 (>60 ml/min/1.73 sqM); Anion Gap 10 mmol/L; Blood Urea Nitrogen 2 mg/dL (7-17); Calcium 12.0 mg/dL (8.4-10.2); Carbon Dioxide 24 mmol/L (22-30); Chloride 106 mmol/L (98-107); Glucose 67 mg/dL (74-99); Magnesium 1.4 mg/dL (1.6-2.3); Non-African American GFR(CKD) >90 (>60 ml/min/1.73 sqM); Potassium 3.5 mmol/L (3.5-5.1); Sodium 140 mmol/L (137-145)
--- NOTE | 2025-01-23 07:14 | P.PN ---
Subjective Progress Note Date: 01/22/25 Principal diagnosis: Reason for follow-up is left lower abdominal wound and intra-abdominal abscess patient is a 59-year-old female with a past medical history significa nt for Coronary Artery Disease (CAD), Chest Pain / Angina, Fibromyalgia, Musculoskeletal Disorder, Renal Disease did have history of recurrent left lower quadrant abscess likely diverticular related last drainage procedure done 12/03/2024 for which the patient has received IV and oral antibiotic follow-up CT shows resolution of the abscess now presented the hospital with nausea vomiting and diarrhea with a repeat CT abdominal pelvis nonconcerning for 1.2 cm hypodense area at the postsurgical site of the left lower anterior pelvic wall concerning for developing abscess. On today's evaluation that is 01/22/2025,the patient denies any fever or any chills, patient is breathing comfortably on room air, the patient denies chest pain shortness of breath and no significant cough, patient denies abdominal pain, did have resolution of her nausea and vomiting and no diarrhea. Patient did have a creatinine 0.58 no CBC was done today Objective - Vital Signs Vital signs: Vital Signs Temp 98.4 F 01/22/25 02:00 Pulse 107 H 01/22/25 02:00 Resp 18 01/22/25 02:00 BP 129/82 01/22/25 02:00 Pulse Ox 95 01/22/25 02:00 FiO2 Intake & Output 01/21/25 01/22/25 01/22/25 18:59 06:59 18:59 Other: Voiding Method Toilet Toilet # Voids 2 - Exam GENERAL DESCRIPTION: Middle-age female lying in bed in no distress RESPIRATORY SYSTEM: Unlabored breathing , decreased breath sounds at bases HEART: S1 S2 regular rate and rhythm , ABDOMEN: Soft , no tenderness EXTREMITIES: No edema feet - Labs CBC & Chem 7: 01/23/25 05:24 01/23/25 05:24 Labs: Abnormal Lab Results - Last 24 Hours (Table) 01/21/25 01/21/25 01/22/25 Range/Units 06:24 06:24 06:08 BUN 3 L (7-17) mg/dL Calcium 13.0 H (8.4-10.2) mg/dL Ionized Calcium Nelson (4.5-5.3) mg/dL Iron 29 L (50-170) UG/DL % Saturation 11.55 L (12.00-45.00) Transferrin 179.0 L (204.0-354.0) mg/dL Angiotensin Convert Enz 63 H (8-52) U/L 01/22/25 Range/Units 06:08 BUN (7-17) mg/dL Calcium (8.4-10.2) mg/dL Ionized Calcium Nelson 7.2 H* (4.5-5.3) mg/dL Iron (50-170) UG/DL % Saturation (12.00-45.00) Transferrin (204.0-354.0) mg/dL Angiotensin Convert Enz (8-52) U/L Assessment and Plan (1) Open abdominal wall wound Current Visit: Yes Status: Acute Code(s): S31.109A - UNSP OPN WND ABD WALL, UNSP Q W/O PENET PERIT CAV, INIT SNOMED Code(s): 296752650 (2) Acute nausea with nonbilious vomiting Current Visit: Yes Status: Acute Code(s): R11.2 - NAUSEA WITH VOMITING, UNSPECIFIED SNOMED Code(s): 97696187 Plan: 1patient presented to hospital with tractable nausea vomiting and also having diarrhea with a question of gastroenteritis in this patient also have a nonhealing wound to the left lower quadrant area with a question of possible abdominal wall wound infection/cellulitis underlying abscess not on excluded 2-patient did have CT of abdominal pelvis with concern for left lower quadrant abdominal abscess, IR will be consulted for drainage of the abscess and sent fluid for the culture 3-patient to continue with Zosyn while waiting for the workup to be completed Dictation was produced using [employer] dictation software. please excuse any gramma tical, word or spelling errors. Time with Patient: Less than 30
--- NOTE | 2025-01-23 07:45 | P.PN ---
Subjective Patient is a pleasant 59 years old female with past medical history of multiple medical problems as below. Patient presents because of nausea vomiting started since Monday night, about 4 to 5 days ago Yesterday patient was only drinking water and a whole to stop her emesis. Patient was not coherent her hip and heels hurts she did not sleep well Her last bowel movement was yesterday and look normal with no diarrhea. Patient felt pain all over her body Patient denies dysuria or urgency no chest pain or dyspnea or coughing Patient feels dizzy when she tries to get up. No weakness or tingling in the limbs She had some abdominal pain nonradiating in the epigastric area with no known precipitating or relieving factor, felt just as ache She denies smoking alcohol illicit drug She had recent history for her lower abdominal abscess, her surgeon was Dr. Cook, Last time she was in this hospital was also for nausea vomiting and diarrhea. Left inguinal abscess status post I&D and CAT scan showed improvement with no fluid collection and no need for antibiotics upon discharge. Also treated for Shalonda UTI. Patient's tachycardia not febrile CBC BMP LFT were unremarkable. Urine is concentrated sample. Magnesium 1.3. TSH is normal at 0.8 and parathyroid hormone is normal at 30. EKG showing sinus tachycardia [address]-T changes. 01/22 Patient with no abdominal pain and vomiting stopped. She did not start eating it because she had significant migraine headache she is having history of migraine but did not have a headache for a while. Her PCP started her on Imitrex but she did not take it because she did not have headache recently. Patient states is the same migraine headache. She still have lower abdominal drainage from her lower abdominal wound, mild erythema around the orifice, dressing in place No other new complaints Calcium still elevated with mL calcium about 8 Patient remains on IV fluids. Vitamin D levels were ordered and is pending Nephrology, ID and surgery team on the case Will start pain management 01/23 Patient with the same symptoms, no vomiting. Still has lower abdominal wound/ fistula and draining. She remains on IV Zosyn. Surgery team following plan for EGD today. IR team were consulted for left lower quadrant abdominal abscess Also hypercalcemia is improving slightly and gradually, as per nephrology team it is chronic was previously elevated calcium on several occasion for over several years. Nephrology team suspecting sarcoidosis and parathyroid hormone abnormality. Patient still instructed to follow-up outpatient with PCP for further workup for hypercalcemia and she agrees. CT of the abdomen did not show any mass or suspicious for malignancy so far. Seroquel and Requip remains on hold Still getting normal saline 130 mL/h, tachycardia significantly improved though. Low magnesium been replaced Review of systems CONSTITUTIONAL: No fever, no malaise, no fatigue. HEENT: No recent visual problems or hearing problems. Denied any sore throat. CARDIOVASCULAR: No orthopnea, PND, no palpitations, no syncope. PULMONARY: No shortness of breath, no cough, no hemoptysis. HEMATOLOGICAL: Denies any bleeding or petechiae. GENITOURINARY: Denies any burning micturition, frequency, or urgency. MUSCULOSKELETAL/RHEUMATOLOGICAL: Denies any joint pain, swelling, or any muscle pain. ENDOCRINE: Denies any polyuria or polydipsia. Active Medications Generic Name Dose Route Start Last Admin Trade Name Freq PRN Reason Stop Dose Admin Acetaminophen 325 mg 01/21/25 08:56 Acetaminophen Tab 325 Mg Tab PO Q6HR PRN Fever and/ or Pain Acetaminophen/Butalbital/Caffeine 1 each 01/21/25 08:56 01/22/25 13:25 Butalb/Apap/Caff 50-325-40mg Tab PO 1 each Q4HR PRN Administration Headache Ferrous Sulfate 325 mg 01/20/25 16:15 01/22/25 11:47 Ferrous Sulfate 325 Mg Tab PO 325 mg W/LUNCH GRIFFIN Administration Sodium Chloride 1,000 mls @ 130 mls/hr 01/20/25 15:15 01/23/25 06:26 Saline 0.9% IV 130 mls/hr .Q7H42M GRIFFIN Administration Piperacillin Sod/Tazobactam 100 mls @ 25 mls/hr 01/21/25 23:00 01/23/25 06:26 Sod 3.375 gm/ Sodium Chloride IVPB 25 mls/hr Q8H GRIFFIN Administration Protocol Magnesium Sulfate/Dextrose 1 100 mls @ 100 mls/hr 01/23/25 07:00 gm/ IV Solution IVPB 01/23/25 08:59 Q1H GRIFFIN Lactobacillus Acidophilus 1 each 01/21/25 09:00 01/22/25 09:12 Lactobacillus Acidophilus/Pect 1 Each Capsule PO 1 each DAILY GRIFFIN Administration Magnesium Oxide 400 mg 01/20/25 16:15 01/22/25 20:05 Magnesium Oxide 400 Mg Tab PO 400 mg TID GRIFFIN Administration Melatonin 20 mg 01/20/25 21:00 01/22/25 20:06 Melatonin 5 Mg Tablet PO 20 mg HS GRIFFIN Administration Metoprolol Tartrate 25 mg 01/21/25 09:00 01/22/25 09:12 Metoprolol Tartrate 25 Mg Tab PO 25 mg DAILY GRIFFIN Administration Morphine Sulfate 2 mg 01/20/25 21:17 01/22/25 22:09 Morphine Sulfate 2 Mg/Ml Syringe IVP 2 mg Q6HR PRN Administration Pain/Discomfort Multivitamins 1 each 01/21/25 09:00 01/22/25 09:12 Multivitamins, Thera 1 Each Tab PO 1 each DAILY GRIFFIN Administration Naloxone HCl 0.2 mg 01/20/25 15:03 Naloxone 0.4 Mg/Ml 1 Ml Vial IV Q2M PRN Opioid Reversal Ondansetron HCl 4 mg 01/20/25 15:03 01/21/25 16:06 Ondansetron 4 Mg/2 Ml Vial IVP 4 mg Q8HR PRN Administration Nausea And Vomiting Ondansetron HCl 8 mg 01/20/25 21:00 01/22/25 20:13 Ondansetron Odt 8 Mg Tab.Rapdis PO Not Given BID GRIFFIN Pantoprazole Sodium 40 mg 01/20/25 17:30 01/23/25 06:02 Pantoprazole 40 Mg Tablet PO Not Given AC-BID GRIFFIN Temazepam 15 mg 01/20/25 19:03 Temazepam 15 Mg Cap PO HS PRN Insomnia Objective - Vital Signs Vital signs: Vital Signs Temp 99.0 F 01/23/25 01:52 Pulse 99 01/23/25 01:52 Resp 18 01/23/25 01:52 BP 112/75 01/23/25 01:52 Pulse Ox 95 01/23/25 01:52 FiO2 Intake & Output 01/22/25 01/23/25 01/23/25 18:59 06:59 18:59 Intake Total 540 Balance 540 Intake: Oral 540 Other: Voiding Method Toilet # Voids 3 - Exam Patient is a pleasant 59 years old female with past medical history of multiple medical problems as below. Patient presents because of nausea vomiting started since Monday night, about 4 to 5 days ago Yesterday patient was only drinking water and a whole to stop her emesis. Patient was not coherent her hip and heels hurts she did not sleep well Her last bowel movement was yesterday and look normal with no diarrhea. Patient felt pain all over her body Patient denies dysuria or urgency no chest pain or dyspnea or coughing Patient feels dizzy when she tries to get up. No weakness or tingling in the limbs She had some abdominal pain nonradiating in the epigastric area with no known precipitating or relieving factor, felt just as ache She denies smoking alcohol illicit drug She had recent history for her lower abdominal abscess, her surgeon was Dr. Cook, Last time she was in this hospital was also for nausea vomiting and diarrhea. Left inguinal abscess status post I&D and CAT scan showed improvement with no fluid collection and no need for antibiotics upon discharge. Also treated for Shalonda UTI. - Labs CBC & Chem 7: 01/23/25 05:24 01/23/25 05:24 Labs: Abnormal Lab Results - Last 24 Hours (Table) 01/21/25 01/23/25 01/23/25 Range/Units 06:24 05:24 05:24 RBC 3.37 L (4.10-5.20) 10*6/uL Hgb 8.7 L (12.0-15.0) g/dL Hct 28.1 L (37.2-46.3) % MCH 25.8 L (27.0-32.0) pg MCHC 31.0 L (32.0-37.0) g/dL Plt Count 520 H (140-440) 10*3/uL Lymphocytes # 0.80 L (0.90-5.00) 10*3/uL Eosinophils # 0.46 H (0.04-0.35) 10*3/uL BUN 2 L (7-17) mg/dL Glucose 67 L (74-99) mg/dL Calcium 12.0 H (8.4-10.2) mg/dL Magnesium 1.4 L (1.6-2.3) mg/dL Angiotensin Convert Enz 63 H (8-52) U/L Microbiology - Last 24 Hours (Table) 01/21/25 15:50 Urine Culture - Final Urine,Voided Assessment and Plan Assessment: Nausea vomiting, secondary to hypercalcemia. Improved Hypercalcemia, chronic suspected secondary to sarcoidosis versus parathyroid hormone abnormality needs outpatient follow-up and patient agrees Recurrent lower abdominal abscess/fistula. 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 Nephrology team Consult nephrology team Consult infectious disease team and general surgery team Hold Seroquel and Requip if possible which might contribute to the GI symptoms Labs and medication were reviewed.. Continue same treatment. Continue with symptomatic treatment. Resume home medication. Monitor labs and vitals. DVT and GI prophylaxis. Further recommendations as per clinical course of the patient DVT prophylaxis: Subcutaneous heparin GI Prophylaxis: Ppi PT/OT: Pending Prognosis is guarded
[2025-01-23] MEDS ORDERED: PROPOFOL 10 MG/ML 20 ML VIAL IV ONE (10:02)
[2025-01-23] MEDS ORDERED: LIDOCAINE 1% INJ 10MG/ML (20 ML MDV) ONE (10:02)
[2025-01-23] MEDS: IV FLUID CONTINUATION 1,000 ML IV ONE (10:02)
--- NOTE | 2025-01-23 10:19 | P.OP ---
Date of Procedure: 01/23/25 Preoperative Diagnosis: Nausea Vomiting Postoperative Diagnosis: Large intrathoracic hiatal hernia Antral gastritis Procedure(s) Performed: EGD Anesthesia: MAC Surgeon: Eddie Cook Pathology: other (Antrum) Condition: stable Disposition: floor Description of Procedure: The patient was placed on the endoscopy table in the lateral position. She received IV sedation. The Gastroflux oropharynx passed in the esophagus into the stomach. Scope was then placed through the pylorus. The 1st and 2nd po rtion of the duodenum appeared normal. The scope was then brought back in the antrum and this was mildly inflamed. A biopsy was performed. The scope was then retroflexed and remainder of the stomach appeared normal. Patient had a large hiatal hernia. Approximately one third of the stomach was positioned in the intrathoracic position. The GE junction was at 37 cm. The distal esophagus appeared minimal Flaim. The proximal esophagus appeared normal. Scope withdrawn from the patient.
[2025-01-23] MEDS: MAGNESIUM SULFATE-D5W PMX 1 GM in DEXTROSE/WATER 1 100ML.BAG IVPB SCH (11:51)
[2025-01-23] MEDS: LOPERAMIDE 2 MG CAP PO PRN (13:29)
--- NOTE | 2025-01-23 14:08 | P.PN ---
Subjective Progress Note Date: 01/23/25 Patient follow-up for hypercalcemia. She was teary-eyed this morning and said she still does not feel herself. She has been voiding more frequently and is feeling more hydrated. She is able to ambulate to the bathroom herself, which she was too weak to do when initially admitted. She denies shortness of breath, chest pain, or abdominal pain. She is still experiencing nausea and a low appetite. Her calcium continues to improve, serum calcium was 12 this morning. Currently maintained on IV fluids and was given IV magnesium sulfate replacement today. Objective - Vital Signs Vital signs: Vital Signs Temp 98.8 F 01/23/25 07:00 Pulse 105 H 01/23/25 07:00 Resp 16 01/23/25 07:00 BP 112/75 01/23/25 07:00 Pulse Ox 97 01/23/25 07:00 FiO2 Intake & Output 01/22/25 01/23/25 01/23/25 18:59 06:59 18:59 Intake Total 540 400 Balance 540 400 Intake: IV 400 Oral 540 Other: Voiding Method Toilet Toilet # Voids 3 - Exam Vital signs stable General: No acute distress. HEENT: Head exam is unremarkable. LUNGS: No audible rhonchi or wheezes. HEART: Normal S1 and S2 heart sounds. ABDOMEN: Nontender, some discomfort in LLQ post I&D inguinal abscess in December. EXTREMITITES: no edema - Labs CBC & Chem 7: 01/23/25 05:24 01/23/25 05:24 Labs: Abnormal Lab Results - Last 24 Hours (Table) 01/23/25 01/23/25 Range/Units 05:24 05:24 RBC 3.37 L (4.10-5.20) 10*6/uL Hgb 8.7 L (12.0-15.0) g/dL Hct 28.1 L (37.2-46.3) % MCH 25.8 L (27.0-32.0) pg MCHC 31.0 L (32.0-37.0) g/dL Plt Count 520 H (140-440) 10*3/uL Lymphocytes # 0.80 L (0.90-5.00) 10*3/uL Eosinophils # 0.46 H (0.04-0.35) 10*3/uL BUN 2 L (7-17) mg/dL Glucose 67 L (74-99) mg/dL Calcium 12.0 H (8.4-10.2) mg/dL Ionized Calcium Nelson 6.4 H* (4.5-5.3) mg/dL Magnesium 1.4 L (1.6-2.3) mg/dL Microbiology - Last 24 Hours (Table) 01/21/25 15:50 Urine Culture - Final Urine,Voided Assessment and Plan Assessment: 1. Hypercalcemia, chronic noted from 2016. Serum calcium was 16.1 on admission, 13 today. Intact PTH 30.8. It should have been much lower given the significantly elevated calcium, so there is a possibility of underlying primary hyperparathyroidism. Patient should have complete workup given evidence of renal calcification and fairly young age. Vitamin D 36.1. Bilateral renal calculi noted on renal ultrasound on 08/12/24. Patient is main tained on calcium supplementation which is discontinued. CHRISTIANO level is elevated. Vitamin D 1-25 normal range. Chest x-ray unremarkable. Ordered parathyroid nuclear scan to rule out adenoma. 2. Mild hypomagenisum 2/2 proton pump inhibitors. Maintained on magnesium oxide supplementation. Given IV magnesium sulfate today. 3. Iron deficiency anemia. Chronic per chart review. Ferrous sulfate taken at home. Currently taking ferrous sulfate inpt. 4. Bilateral renal calculi, nonobstructive. Plan: Continue IV fluids IV magnesium sulfate given today, continue magnesium replacement as needed Continue off of calcium supplements Check immunofixation urine and serum, rule out multiple myeloma CHRISTIANO levels elevated. Vit D 1-25 normal range. Chest xray unremarkable. Possible trial of prednisone given clinical picture. Check nuclear medicine parathyroid scan, rule out parathyroid adenoma Calcium decreased to 12 this morning, will continue to monitor Continue to monitor I's and O's Hu Koo MD Internal Medicine PGY1 Nephrology service
--- NOTE | 2025-01-23 14:43 | NM ---
EXAMINATION TYPE: NM parathyroid DATE OF EXAM: 01/23/2025 COMPARISON: NONE CLINICAL INDICATION: Female, 59 years old with history of r/o adenoma; TECHNIQUE: Following administration of 25.5 mCi Tc99m Sestamibi. Anterior projection images of the neck and ches t were obtained 10 minutes and NA hours post injection FINDINGS/IMPRESSION: Physiologic radiotracer uptake in the salivary glands and thyroid gland. There is normal diffuse radi otracer thyroid uptake on immediate imaging. Examination is essentially nondiagnostic for parathyroid uptake due to patient refusing delayed imaging. [facility], , 01/23/2025 2:41 PM
--- NOTE | 2025-01-23 15:13 | P.PN ---
Progress Note - Text Progress Note Date: 01/23/25 The patient underwent EGD today. She has had issues with chronic nausea and inability to keep food down. Patient was found to have a moderate-sized paraesophageal hiatal hernia. The patient may benefit from having this repaired when she is feeling better.
--- NOTE | 2025-01-23 22:40 | P.PN ---
Subjective Progress Note Date: 01/23/25 Principal diagnosis: Reason for follow-up is left lower abdominal wound and intra-abdominal abscess patient is a 59-year-old female with a past medical history significa nt for Coronary Artery Disease (CAD), Chest Pain / Angina, Fibromyalgia, Musculoskeletal Disorder, Renal Disease did have history of recurrent left lower quadrant abscess likely diverticular related last drainage procedure done 12/03/2024 for which the patient has received IV and oral antibiotic follow-up CT shows resolution of the abscess now presented the hospital with nausea vomiting and diarrhea with a repeat CT abdominal pelvis nonconcerning for 1.2 cm hypodense area at the postsurgical site of the left lower anterior pelvic wall concerning for developing abscess. On today's evaluation that is 01/23/2025,the patient remains to be afebrile, patient is on room air not requiring supplemental oxygen and denies any shortness of breath no chest pain or cough.Patient did have resolution of nausea and vomiting denies abdominal pain or any diarrhea feeling better. Patient white count is 5.50, creatinine 0.56 Objective - Vital Signs Vital signs: Vital Signs Temp 98.5 F 01/23/25 14:24 Pulse 91 01/23/25 14:24 Resp 16 01/23/25 07:00 BP 117/76 01/23/25 14:24 Pulse Ox 96 01/23/25 14:24 FiO2 Intake & Output 01/22/25 01/23/25 01/23/25 18:59 06:59 18:59 Intake Total 540 400 Balance 540 400 Intake: IV 400 Oral 540 Other: Voiding Method Toilet Toilet # Voids 3 - Exam GENERAL DESCRIPTION: Middle-age female lying in bed in no distress RESPIRATORY SYSTEM: Unlabored breathing , decreased breath sounds at bases HEART: S1 S2 regular rate and rhythm , ABDOMEN: Soft , no tenderness EXTREMITIES: No edema feet - Labs CBC & Chem 7: 01/23/25 05:24 01/23/25 05:24 Labs: Abnormal Lab Results - Last 24 Hours (Table) 01/23/25 01/23/25 Range/Units 05:24 05:24 RBC 3.37 L (4.10-5.20) 10*6/uL Hgb 8.7 L (12.0-15.0) g/dL Hct 28.1 L (37.2-46.3) % MCH 25.8 L (27.0-32.0) pg MCHC 31.0 L (32.0-37.0) g/dL Plt Count 520 H (140-440) 10*3/uL Lymphocytes # 0.80 L (0.90-5.00) 10*3/uL Eosinophils # 0.46 H (0.04-0.35) 10*3/uL BUN 2 L (7-17) mg/dL Glucose 67 L (74-99) mg/dL Calcium 12.0 H (8.4-10.2) mg/dL Ionized Calcium Nelson 6.4 H* (4.5-5.3) mg/dL Magnesium 1.4 L (1.6-2.3) mg/dL Microbiology - Last 24 Hours (Table) 01/21/25 15:50 Urine Culture - Final Urine,Voided Assessment and Plan (1) Open abdominal wall wound Current Visit: Yes Status: Acute Code(s): S31.109A - UNSP OPN WND ABD WALL, UNSP Q W/O PENET PERIT CAV, INIT SNOMED Code(s): 924975833 (2) Acute nausea with nonbilious vomiting Current Visit: Yes Status: Acute Code(s): R11.2 - NAUSEA WITH VOMITING, UNSPECIFIED SNOMED Code(s): 81026516 Plan: 1patient presented to hospital with tractable nausea vomiting and also having diarrhea with a question of gastroenteritis in this patient also have a nonhealing wound to the left lower quadrant area with a question of possible abdominal wall wound infection/cellulitis underlying abscess not on excluded 2-patient did have CT of abdominal pelvis with concern for left lower quadrant abdominal abscess, IR consult was requested for drainage and subsequently CT was reviewed with radiologist and there was no evidence of any fluid to be drained hence IR consult has been discontinued 3-patient to continue with Zosyn while inpatient will transition to oral antibiotic on discharge Dictation was produced using [employer] dictation software. please excuse any grammatical, word or spelling errors. Time with Patient: Less than 30
[2025-01-24 04:43] LABS: African American GFR (CKD) >90 (>60 ml/min/1.73 sqM); Anion Gap 11 mmol/L; Blood Urea Nitrogen <2 mg/dL (7-17); Calcium 10.6 mg/dL (8.4-10.2); Carbon Dioxide 21 mmol/L (22-30); Chloride 104 mmol/L (98-107); Glucose 61 mg/dL (74-99); Non-African American GFR(CKD) >90 (>60 ml/min/1.73 sqM); Potassium 3.3 mmol/L (3.5-5.1); Sodium 136 mmol/L (137-145)
[2025-01-24] MEDS: CALCIUM GLUCONATE IN NACL 1 GM in SALINE 1 100ML.BAG IVPB ONE (06:08)
--- NOTE | 2025-01-24 08:52 | P.PN ---
Subjective Progress Note Date: 01/24/25 Patient luis alfredo stable. She is tolerating clear liquids. She is requesting more to eat. On exam vital signs appear stable. Abdomen is soft nontender. Patient has a moderate-sized hiatal hernia. We will consider outpatient repair when stable. Objective - Vital Signs Vital signs: Vital Signs Temp 98.2 F 01/24/25 07:41 Pulse 97 01/24/25 07:41 Resp 17 01/24/25 07:41 BP 119/72 01/24/25 07:41 Pulse Ox 95 01/24/25 07:41 FiO2 Intake & Output 01/23/25 01/24/25 01/24/25 18:59 06:59 18:59 Intake Total 940 Balance 940 Intake: IV 400 Oral 540 Other: Voiding Method Toilet Toilet # Voids 3 1 - Labs CBC & Chem 7: 01/23/25 05:24 01/24/25 03:42 Labs: Abnormal Lab Results - Last 24 Hours (Table) 01/23/25 01/24/25 Range/Units 05:24 03:42 Sodium 136 L (137-145) mmol/L Potassium 3.3 L (3.5-5.1) mmol/L Carbon Dioxide 21 L (22-30) mmol/L BUN <2 L (7-17) mg/dL Creatinine 0.48 L (0.52-1.04) mg/dL Glucose 61 L (74-99) mg/dL Calcium 10.6 H (8.4-10.2) mg/dL Ionized Calcium Nelson 6.4 H* 6.0 H* (4.5-5.3) mg/dL
[2025-01-24] MEDS: POTASSIUM CHLORIDE ER 20 MEQ TAB.ER PO STA (09:57)
--- NOTE | 2025-01-24 10:43 | P.PN ---
Subjective Patient is a pleasant 59 years old female with past medical history of multiple medical problems as below. Patient presents because of nausea vomiting started since Monday night, about 4 to 5 days ago Yesterday patient was only drinking water and a whole to stop her emesis. Patient was not coherent her hip and heels hurts she did not sleep well Her last bowel movement was yesterday and look normal with no diarrhea. Patient felt pain all over her body Patient denies dysuria or urgency no chest pain or dyspnea or coughing Patient feels dizzy when she tries to get up. No weakness or tingling in the limbs She had some abdominal pain nonradiating in the epigastric area with no known precipitating or relieving factor, felt just as ache She denies smoking alcohol illicit drug She had recent history for her lower abdominal abscess, her surgeon was Dr. Cook, Last time she was in this hospital was also for nausea vomiting and diarrhea. Left inguinal abscess status post I&D and CAT scan showed improvement with no fluid collection and no need for antibiotics upon discharge. Also treated for Shalonda UTI. Patient's tachycardia not febrile CBC BMP LFT were unremarkable. Urine is concentrated sample. Magnesium 1.3. TSH is normal at 0.8 and parathyroid hormone is normal at 30. EKG showing sinus tachycardia [address]-T changes. 01/22 Patient with no abdominal pain and vomiting stopped. She did not start eating it because she had significant migraine headache she is having history of migraine but did not have a headache for a while. Her PCP started her on Imitrex but she did not take it because she did not have headache recently. Patient states is the same migraine headache. She still have lower abdominal drainage from her lower abdominal wound, mild erythema around the orifice, dressing in place No other new complaints Calcium still elevated with mL calcium about 8 Patient remains on IV fluids. Vitamin D levels were ordered and is pending Nephrology, ID and surgery team on the case Will start pain management 01/23 Patient with the same symptoms, no vomiting. Still has lower abdominal wound/ fistula and draining. She remains on IV Zosyn. Surgery team following plan for EGD today. IR team were consulted for left lower quadrant abdominal abscess Also hypercalcemia is improving slightly and gradually, as per nephrology team it is chronic was previously elevated calcium on several occasion for over several years. Nephrology team suspecting sarcoidosis and parathyroid hormone abnormality. Patient still instructed to follow-up outpatient with PCP for further workup for hypercalcemia and she agrees. CT of the abdomen did not show any mass or suspicious for malignancy so far. Seroquel and Requip remains on hold Still getting normal saline 130 mL/h, tachycardia significantly improved though. Low magnesium been replaced 01/24 Patient is awake alert and oriented She states some improvement. No nausea vomiting and diet has been advanced per surgery team following. Surgery team recommended repair of hiatal hernia as an outpatient Her lower abdominal wound and cellulitis improving, less discharge, there was suspicion of an abscess but with review of radiologist there is no fluid enough to be drained per IR team. Patient currently continued antibiotics with Zosyn Also redness calcium improving down to 6. Patient continued with normal saline. An appointment made for her with her PCP Dr. Pedersen and nurse practitioner Lexy on 01/28 to which she agrees to. Possible discharge in 24 to 48 hours if she keeps improving Patient has appointment on 01/28 with [facility] Caitlin, I called Caitlin today and I discussed the case with her over the phone including her diagnosis of hyperc alcemia and lower abdominal wound/fistula. Also we discussed the recommendation to an do further workup for hypercalcemia including but not limited to parathyroid hormone related peptide. If that is elevated she might need more workup for cancer. Also I recommended that she might be referred to oncologist Dr. Butcher in 1 week and she kindly did take note of this as well. Patient also informed of this recommendation and she is agreeable Objective - Vital Signs Vital signs: Vital Signs Temp 98.2 F 01/24/25 07:41 Pulse 97 01/24/25 07:41 Resp 17 01/24/25 07:41 BP 119/72 01/24/25 07:41 Pulse Ox 95 01/24/25 07:41 FiO2 Intake & Output 01/23/25 01/24/25 01/24/25 18:59 06:59 18:59 Intake Total 940 Balance 940 Intake: IV 400 Oral 540 Other: Voiding Method Toilet Toilet # Voids 3 1 - Exam Patient is a pleasant 59 years old female with past medical history of multiple medical problems as below. Patient presents because of nausea vomiting started since Monday night, about 4 to 5 days ago Yesterday patient was only drinking water and a whole to stop her emesis. Patient was not coherent her hip and heels hurts she did not sleep well Her last bowel movement was yesterday and look normal with no diarrhea. Patient felt pain all over her body Patient denies dysuria or urgency no chest pain or dyspnea or coughing Patient feels dizzy when she tries to get up. No weakness or tingling in the limbs She had some abdominal pain nonradiating in the epigastric area with no known precipitating or relieving factor, felt just as ache She denies smoking alcohol illicit drug She had recent history for her lower abdominal abscess, her surgeon was Dr. Cook, Last time she was in this hospital was also for nausea vomiting and diarrhea. Left inguinal abscess status post I&D and CAT scan showed improvement with no fluid collection and no need for antibiotics upon discharge. Also treated for Shalonda UTI. - Labs CBC & Chem 7: 01/23/25 05:24 01/24/25 03:42 Labs: Abnormal Lab Results - Last 24 Hours (Table) 01/24/25 Range/Units 03:42 Sodium 136 L (137-145) mmol/L Potassium 3.3 L (3.5-5.1) mmol/L Carbon Dioxide 21 L (22-30) mmol/L BUN <2 L (7-17) mg/dL Creatinine 0.48 L (0.52-1.04) mg/dL Glucose 61 L (74-99) mg/dL Calcium 10.6 H (8.4-10.2) mg/dL Ionized Calcium Nelson 6.0 H* (4.5-5.3) mg/dL Assessment and Plan Assessment: Nausea vomiting, secondary to hypercalcemia. Improved Hypercalcemia, chronic suspected secondary to sarcoidosis versus parathyroid hormone abnormality needs outpatient follow-up and patient agrees Recurrent lower abdominal abscess/fistula. 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 Nephrology team Consult nephrology team Consult infectious disease team and general surgery team Follow-up with [facility] Caitlin on 01/28, patient informed as well as [facility] Caitlin for further workup and referral to oncologist Hold Seroquel and Requip if possible which might contribute to the GI symptoms Labs and medication were reviewed.. Continue same treatment. Continue with symptomatic treatment. Resume home medication. Monitor labs and vitals. DVT and GI prophylaxis. Further recommendations as per clinical course of the patient DVT prophylaxis: Subcutaneous heparin GI Prophylaxis: Ppi PT/OT: Pending Prognosis is guarded
--- NOTE | 2025-01-24 16:03 | P.PN ---
Subjective Progress Note Date: 01/24/25 Principal diagnosis: Reason for follow-up is left lower abdominal wound and intra-abdominal abscess patient is a 59-year-old female with a past medical history significa nt for Coronary Artery Disease (CAD), Chest Pain / Angina, Fibromyalgia, Musculoskeletal Disorder, Renal Disease did have history of recurrent left lower quadrant abscess likely diverticular related last drainage procedure done 12/03/2024 for which the patient has received IV and oral antibiotic follow-up CT shows resolution of the abscess now presented the hospital with nausea vomiting and diarrhea with a repeat CT abdominal pelvis nonconcerning for 1.2 cm hypodense area at the postsurgical site of the left lower anterior pelvic wall concerning for developing abscess. On today's evaluation that is 01/24/2025, the patient continues to be afebrile, the patient is on room air and breathing comfortably, the Pt denies having any chest pain or cough, the patient denies having any abdominal pain no vomiting or any diarrhea has been reported. Patient did have creatinine 0.48 no CBC was done today urine culture negative Objective - Vital Signs Vital signs: Vital Signs Temp 98.0 F 01/24/25 14:27 Pulse 87 01/24/25 14:27 Resp 18 01/24/25 14:27 BP 114/76 01/24/25 14:27 Pulse Ox 100 01/24/25 14:27 FiO2 Intake & Output 01/23/25 01/24/25 01/24/25 18:59 06:59 18:59 Intake Total 940 Balance 940 Intake: IV 400 Oral 540 Other: Voiding Method Toilet Toilet # Voids 3 1 - Exam GENERAL DESCRIPTION: Middle-age female lying in bed in no distress RESPIRATORY SYSTEM: Unlabored breathing , decreased breath sounds at bases HEART: S1 S2 regular rate and rhythm , ABDOMEN: Soft , no tenderness EXTREMITIES: No edema feet - Labs CBC & Chem 7: 01/23/25 05:24 01/24/25 03:42 Labs: Abnormal Lab Results - Last 24 Hours (Table) 01/24/25 Range/Units 03:42 Sodium 136 L (137-145) mmol/L Potassium 3.3 L (3.5-5.1) mmol/L Carbon Dioxide 21 L (22-30) mmol/L BUN <2 L (7-17) mg/dL Creatinine 0.48 L (0.52-1.04) mg/dL Glucose 61 L (74-99) mg/dL Calcium 10.6 H (8.4-10.2) mg/dL Ionized Calcium Nelson 6.0 H* (4.5-5.3) mg/dL Assessment and Plan (1) Open abdominal wall wound Current Visit: Yes Status: Acute Code(s): S31.109A - UNSP OPN WND ABD WALL, UNSP Q W/O PENET PERIT CAV, INIT SNOMED Code(s): 292360818 (2) Acute nausea with nonbilious vomiting Current Visit: Yes Status: Acute Code(s): R11.2 - NAUSEA WITH VOMITING, UNSPECIFIED SNOMED Code(s): 09131819 Plan: 1patient presented to hospital with tractable nausea vomiting and also having diarrhea with a question of gastroenteritis in this patient also have a nonhealing wound to the left lower quadrant area with a question of possible abdominal wall wound infection/cellulitis underlying abscess not on excluded 2-patient did have CT of abdominal pelvis with concern for left lower quadrant abdominal abscess, IR consult was requested for drainage and subsequently CT was reviewed with radiologist and there was no evidence of any fluid to be drained hence IR consult has been discontinued 3-patient currently be treated with Zosyn to continue while patient will trans ition to oral antibiotic on discharge Dictation was produced using [employer] dictation software. please excuse any grammatical, word or spelling errors. Time with Patient: Less than 30
--- NOTE | 2025-01-24 16:37 | P.PN ---
Subjective Patient is seen for follow-up for hypercalcemia. Workup has revealed elevated CHRISTIANO level and slightly elevated PTH of 30.8 for a serum calcium 16.1 on admission. Evidence of bilateral nephrolithiasis. Chest x-ray is unremarkable. Patient could not complete the nuclear medicine scan for parathyroid glands yesterday. Calcium is down to 10.6 today. Maintained on IV fluids. Objective - Vital Signs Vital signs: Vital Signs Temp 98.0 F 01/24/25 14:27 Pulse 87 01/24/25 14:27 Resp 18 01/24/25 14:27 BP 114/76 01/24/25 14:27 Pulse Ox 100 01/24/25 14:27 FiO2 Intake & Output 01/23/25 01/24/25 01/24/25 18:59 06:59 18:59 Intake Total 940 Balance 940 Intake: IV 400 Oral 540 Other: Voiding Method Toilet Toilet # Voids 3 1 - Exam Vital signs stable General: No acute distress. HEENT: Head exam is unremarkable. LUNGS: No audible rhonchi or wheezes. HEART: Normal S1 and S2 heart sounds. ABDOMEN: Nontender, some discomfort in LLQ post I&D inguinal abscess in December. EXTREMITITES: no edema - Labs CBC & Chem 7: 01/23/25 05:24 01/24/25 03:42 Labs: Abnormal Lab Results - Last 24 Hours (Table) 01/24/25 Range/Units 03:42 Sodium 136 L (137-145) mmol/L Potassium 3.3 L (3.5-5.1) mmol/L Carbon Dioxide 21 L (22-30) mmol/L BUN <2 L (7-17) mg/dL Creatinine 0.48 L (0.52-1.04) mg/dL Glucose 61 L (74-99) mg/dL Calcium 10.6 H (8.4-10.2) mg/dL Ionized Calcium Nelson 6.0 H* (4.5-5.3) mg/dL Assessment and Plan Assessment: 1. Hypercalcemia, chronic noted from 2015. Serum calcium was 16.1 on admission, 10.6 today. Intact PTH 30.8. It should have been much lower given the significantly elevated calcium, suggesting possibility of underlying primary hyperparathyroidism. Patient should have complete workup given evidence of renal calcification and fairly young age. Bilateral renal calculi noted on renal ultrasound on 08/12/24. Patient was maintained on calcium supplementation, now discontinued. CHRISTIANO level is elevated b ut 125 hydroxy vitamin D level is not. Patient could not complete the parathyroid nuclear medicine scan due to back pain. 2. Mild hypomagenisum secondary to proton pump inhibitors. Maintained on magn esium oxide supplementation. 3. Iron deficiency anemia. Chronic per chart review. Ferrous sulfate taken at home. Currently taking ferrous sulfate inpt. 4. Bilateral renal calculi, nonobstructive, associated with hypercalcemia. Plan: Continue IV flluids, decrease rate Continue off of calcium supplements CHRISTIANO levels elevated. Vit D 1-25 normal range. Chest x-ray is unremarkable. Check CT of the chest and consider repeating parathyroid nuclear scan as outpatient.
--- NOTE | 2025-01-24 17:26 | CT ---
EXAMINATION TYPE: CT chest wo con CT DLP: 272.8 mGycm, Automated exposure control for dose reduction was used. DATE OF EXAM: 01/24/2025 5:16 PM COMPARISON: CTA chest 01/28/2020 CLINICAL INDICATION:Female, 59 years old with history of possible sarcoidosis; PHH, possible sarcoido sis TECHNIQUE: Multiple axial images were obtained through the chest without IV contrast. Lack of IV or o ral contrast limits evaluation of solid and hollow organ viscera. . Coronal and sagittal reformats re viewed. FINDINGS: LUNGS/ PLEURA: No pneumothorax. Trace left pleural effusion. No focal consolidation. Mild bilateral d ependent subsegmental atelectasis. Linear scarring within the right upper lobe. No suspicious pulmon power nodule or mass. AIRWAY: Patent and unremarkable.. HEART: Prominent size.. . No pericardial effusion. Moderate coronary artery calcifications present. W as pronounced in the main left coronary artery and LAD. MEDIASTINUM: No gross evidence of adenopathy. Stable nonenlarged right paratracheal lymph node. VASCULATURE: No aortic aneurysm. MUSCULOSKELETAL: No acute osseous abnormalities. Remote healed bilateral rib fractures. Dextrocurvatu re of the thoracic spine. Chronic anterior wedge compression deformity with near complete height loss involving the T10 vertebral body with approximately 2 mm retropulsion. Multilevel Schmorl's nodes. SOFT TISSUES/LYMPH NODES: Unremarkable. LOWER NECK: No significant findings. UPPER ABDOMEN: Nonobstructing right renal 5 mm calculus. Moderate sized hiatal hernia. IMPRESSION: 1. No CT evidence for sarcoidosis at this time. No lymphadenopathy or suspicious palmar findings. 2. Trace left pleural effusion. 3. Chronic anterior wedge compression deformity of the T10 vertebral body with a near complete height loss. 4. Nonobstructing right renal calculus. 5. Moderate-sized hiatal hernia. [facility], , 01/24/2025 5:23 PM
[2025-01-25 08:43] LABS: Basophils # (A) 0.03 X 10*3/uL (0.00-0.10); Basophils % (A) 0.9 %; Eosinophils # (A) 0.39 X 10*3/uL (0.04-0.35); Eosinophils % (A) 12.2 %; HCT 26.5 % (37.2-46.3); HGB 8.1 g/dL (12.0-15.0); Immature Grans, Automated 0.60 %; Lymphocytes # (A) 1.07 X 10*3/uL (0.90-5.00); Lymphocytes % (A) 33.4 %; MCH 25.9 pg (27.0-32.0); MCHC 30.6 g/dL (32.0-37.0); MCV 84.7 FL (80.0-97.0); Monocytes # (A) 0.38 X 10*3/uL (0.20-1.00); Monocytes % (A) 11.9 %; NRBC Per 100 WBC 0 X 10*3/uL (0.00-0.01); Neutrophils # (A) 1.31 X 10*3/uL (1.80-7.70); Neutrophils % (A) 41.0 %; Platelet Count 443 X 10*3/uL (140-440); RBC 3.13 X 10*6/uL (4.10-5.20); RDW 16.4 % (11.5-14.5); WBC 3.20 X 10*3/uL (4.50-10.00)
[2025-01-25 08:56] LABS: Anion Gap 14.30 mmol/L (4.00-12.00); BUN/Creat Ratio <5.83 Ratio (12.00-20.00); Blood Urea Nitrogen <3.5 mg/dL (9.0-27.0); Calcium 9.5 mg/dL (8.7-10.3); Carbon Dioxide 17.7 mmol/L (21.6-31.8); Chloride 104 mmol/L (96-109); Glucose 65 mg/dL (70-110); Magnesium 1.4 mg/dL (1.5-2.4); Potassium 3.3 mmol/L (3.5-5.5); Sodium 136 mmol/L (135-145)
[2025-01-25] MEDS: HYDROcodone/APAP 5-325MG 1 EACH TAB PO PRN (11:17)
--- NOTE | 2025-01-25 12:40 | P.PN ---
Subjective Progress Note Date: 01/25/25 Principal diagnosis: Abdominal pain 59-year-old female doing well today. Denies abdominal pain. No nausea or vomiting. Tolerating diet. No significant heartburn. Objective - Vital Signs Vital signs: Vital Signs Temp 98.4 F 01/25/25 08:01 Pulse 85 01/25/25 08:01 Resp 16 01/25/25 08:01 BP 127/76 01/25/25 08:01 Pulse Ox 98 01/25/25 08:01 FiO2 Intake & Output 01/24/25 01/25/25 01/25/25 18:59 06:59 18:59 Other: Voiding Method Toilet # Voids 3 # Bowel Movements 5 - Exam Abdomen: Soft, nontender, nondistended - Labs CBC & Chem 7: 01/25/25 03:09 01/25/25 03:09 Labs: Abnormal Lab Results - Last 24 Hours (Table) 01/25/25 01/25/25 Range/Units 03:09 03:09 WBC 3.20 L (4.50-10.00) X 10*3/uL RBC 3.13 L (4.10-5.20) X 10*6/uL Hgb 8.1 L (12.0-15.0) g/dL Hct 26.5 L (37.2-46.3) % MCH 25.9 L (27.0-32.0) pg MCHC 30.6 L (32.0-37.0) g/dL RDW 16.4 H (11.5-14.5) % Plt Count 443 H (140-440) X 10*3/uL Neutrophils # 1.31 L (1.80-7.70) X 10*3/uL Eosinophils # 0.39 H (0.04-0.35) X 10*3/uL Potassium 3.3 L (3.5-5.5) mmol/L Carbon Dioxide 17.7 L (21.6-31.8) mmol/L Anion Gap 14.30 H (4.00-12.00) mmol/L BUN <3.5 L (9.0-27.0) mg/dL BUN/Creatinine Ratio <5.83 L (12.00-20.00) Ratio Glucose 65 L (70-110) mg/dL Ionized Calcium Nelson 5.6 H (4.5-5.3) mg/dL Magnesium 1.4 L (1.5-2.4) mg/dL Assessment and Plan (1) Acute nausea with nonbilious vomiting Narrative/Plan: 59-year-old female with dehydration and abdominal pain resolved. Doing well today. Patient with moderate-sized hiatal hernia. Possible outpatient repair. Stable for discharge from our point of view. Follow-up with Dr. Cook as outpatient. Current Visit: Yes Status: Acute Code(s): R11.2 - NAUSEA WITH VOMITING, UNSPECIFIED SNOMED Code(s): 35923567
--- NOTE | 2025-01-25 12:42 | P.PN ---
Subjective Progress Note Date: 01/25/25 Patient is seen for follow-up for hypercalcemia. Workup has revealed elevated CHRISTIANO level and slightly elevated PTH of 30.8 for a serum calcium 16.1 on admission. Evidence of bilateral nephrolithiasis. Chest x-ray is unremarkable. Patient could not complete the nuclear medicine scan for parathyroid glands. Patient denies any new complaints. General: No acute distress. HEENT: Head exam is unremarkable. LUNGS: No audible rhonchi or wheezes. HEART: Normal S1 and S2 heart sounds. ABDOMEN: Nontender EXTREMITITES: no edema Objective - Vital Signs Vital signs: Vital Signs Temp 98.4 F 01/25/25 08:01 Pulse 85 01/25/25 08:01 Resp 16 01/25/25 08:01 BP 127/76 01/25/25 08:01 Pulse Ox 98 01/25/25 08:01 FiO2 Intake & Output 01/24/25 01/25/25 01/25/25 18:59 06:59 18:59 Other: Voiding Method Toilet # Voids 3 # Bowel Movements 5 - Labs CBC & Chem 7: 01/25/25 03:09 01/25/25 03:09 Labs: Abnormal Lab Results - Last 24 Hours (Table) 01/25/25 01/25/25 Range/Units 03:09 03:09 WBC 3.20 L (4.50-10.00) X 10*3/uL RBC 3.13 L (4.10-5.20) X 10*6/uL Hgb 8.1 L (12.0-15.0) g/dL Hct 26.5 L (37.2-46.3) % MCH 25.9 L (27.0-32.0) pg MCHC 30.6 L (32.0-37.0) g/dL RDW 16.4 H (11.5-14.5) % Plt Count 443 H (140-440) X 10*3/uL Neutrophils # 1.31 L (1.80-7.70) X 10*3/uL Eosinophils # 0.39 H (0.04-0.35) X 10*3/uL Potassium 3.3 L (3.5-5.5) mmol/L Carbon Dioxide 17.7 L (21.6-31.8) mmol/L Anion Gap 14.30 H (4.00-12.00) mmol/L BUN <3.5 L (9.0-27.0) mg/dL BUN/Creatinine Ratio <5.83 L (12.00-20.00) Ratio Glucose 65 L (70-110) mg/dL Ionized Calcium Nelson 5.6 H (4.5-5.3) mg/dL Magnesium 1.4 L (1.5-2.4) mg/dL Assessment and Plan Assessment: 1. Hypercalcemia, chronic noted from 2016. Serum calcium was 16.1 on admission, 9.5 today. Intact PTH 30.8. It should have been much lower given the significantly elevated calcium, suggesting possibility of underlying primary hyperparathyroidism. Patient should have complete workup given evidence of renal calcification and fairly young age. Bilateral renal calculi noted on renal ultrasound on 08/12/24. Patient was maintained on calcium supplementation, now discontinued. CHRISTIANO level is elevated but 125 hydroxy vitamin D level is not. Patient could not complete the parathyroid nuclear medicine scan due to back pain. CT negative for evidence of sarcoidosis. 2. Mild hypomagenisum secondary to proton pump inhibitors. Maintained on magnesium oxide supplementation. 3. Iron deficiency anemia. Chronic per chart review. Ferrous sulfate taken at home. Currently taking ferrous sulfate inpt. 4. Bilateral renal calculi, nonobstructive, associated with hypercalcemia. Plan: Continue IV flluids, encourage PO intake Continue off of calcium supplements CHRISTIANO levels elevated. Vit D 1-25 normal range. Chest x-ray is unremarkable.
--- NOTE | 2025-01-25 14:56 | P.PN ---
Subjective Progress Note Date: 01/25/25 Principal diagnosis: Reason for follow-up is left lower abdominal wound and intra-abdominal abscess patient is a 59-year-old female with a past medical history significa nt for Coronary Artery Disease (CAD), Chest Pain / Angina, Fibromyalgia, Musculoskeletal Disorder, Renal Disease did have history of recurrent left lower quadrant abscess likely diverticular related last drainage procedure done 12/03/2024 for which the patient has received IV and oral antibiotic follow-up CT shows resolution of the abscess now presented the hospital with nausea vomiting and diarrhea with a repeat CT abdominal pelvis nonconcerning for 1.2 cm hypodense area at the postsurgical site of the left lower anterior pelvic wall concerning for developing abscess. On today's evaluation that is 01/26/2024, patient did have a temperature of 98.4 F this afternoon and denies having any chills, patient is on room air and breathing comfortably no chest pain or cough, the patient did not have any nausea vomiting abdominal pain or any diarrhea mention feeling better. Patient white count is 3.20, creatinine 0.6 Objective - Vital Signs Vital signs: Vital Signs Temp 98.4 F 01/25/25 13:30 Pulse 83 01/25/25 13:30 Resp 16 01/25/25 13:30 BP 119/76 01/25/25 13:30 Pulse Ox 97 01/25/25 13:30 FiO2 Intake & Output 01/24/25 01/25/25 01/25/25 18:59 06:59 18:59 Other: Voiding Method Toilet # Voids 3 # Bowel Movements 5 - Exam GENERAL DESCRIPTION: Middle-age female lying in bed in no distress RESPIRATORY SYSTEM: Unlabored breathing , decreased breath sounds at bases HEART: S1 S2 regular rate and rhythm , ABDOMEN: Soft , no tenderness EXTREMITIES: No edema feet - Labs CBC & Chem 7: 01/25/25 03:09 01/25/25 03:09 Labs: Abnormal Lab Results - Last 24 Hours (Table) 01/25/25 01/25/25 Range/Units 03:09 03:09 WBC 3.20 L (4.50-10.00) X 10*3/uL RBC 3.13 L (4.10-5.20) X 10*6/uL Hgb 8.1 L (12.0-15.0) g/dL Hct 26.5 L (37.2-46.3) % MCH 25.9 L (27.0-32.0) pg MCHC 30.6 L (32.0-37.0) g/dL RDW 16.4 H (11.5-14.5) % Plt Count 443 H (140-440) X 10*3/uL Neutrophils # 1.31 L (1.80-7.70) X 10*3/uL Eosinophils # 0.39 H (0.04-0.35) X 10*3/uL Potassium 3.3 L (3.5-5.5) mmol/L Carbon Dioxide 17.7 L (21.6-31.8) mmol/L Anion Gap 14.30 H (4.00-12.00) mmol/L BUN <3.5 L (9.0-27.0) mg/dL BUN/Creatinine Ratio <5.83 L (12.00-20.00) Ratio Glucose 65 L (70-110) mg/dL Ionized Calcium Nelson 5.6 H (4.5-5.3) mg/dL Magnesium 1.4 L (1.5-2.4) mg/dL Assessment and Plan (1) Open abdominal wall wound Current Visit: Yes Status: Acute Code(s): S31.109A - UNSP OPN WND ABD WALL, UNSP Q W/O PENET PERIT CAV, INIT SNOMED Code(s): 848248969 (2) Acute nausea with nonbilious vomiting Current Visit: Yes Status: Acute Code(s): R11.2 - NAUSEA WITH VOMITING, UNSPECIFIED SNOMED Code(s): 51852632 Plan: 1patient presented to hospital with tractable nausea vomiting and also having diarrhea with a question of gastroenteritis in this patient also have a nonhealing wound to the left lower quadrant area with a question of possible abdominal wall wound infection/cellulitis underlying abscess not on excluded 2-patient did have CT of abdominal pelvis with concern for left lower quadrant abdominal abscess, IR consult was requested for drainage and subsequently CT was reviewed with radiologist and there was no evidence of any fluid to be drained hence IR consult has been discontinued 3-patient afebrile white count has been normal did have resolution of her nausea and vomiting on Zosyn can be transitioned to oral Augmentin on discharge Dictation was produced using dragon dictation software. please excuse any grammatical, word or spelling errors. Time with Patient: Less than 30
[2025-01-25] MEDS ORDERED: Magnesium Replacement Protocol 1 EACH MISC MISCELLANE PRN (17:32)
[2025-01-25] MEDS ORDERED: Potassium Replacement Protocol 1 EACH MISC MISCELLANE PRN (17:32)
--- NOTE | 2025-01-25 17:35 | P.PN ---
Subjective Patient is a pleasant 59 years old female with past medical history of multiple medical problems as below. Patient presents because of nausea vomiting started since Monday night, about 4 to 5 days ago Yesterday patient was only drinking water and a whole to stop her emesis. Patient was not coherent her hip and heels hurts she did not sleep well Her last bowel movement was yesterday and look normal with no diarrhea. Patient felt pain all over her body Patient denies dysuria or urgency no chest pain or dyspnea or coughing Patient feels dizzy when she tries to get up. No weakness or tingling in the limbs She had some abdominal pain nonradiating in the epigastric area with no known precipitating or relieving factor, felt just as ache She denies smoking alcohol illicit drug She had recent history for her lower abdominal abscess, her surgeon was Dr. Cook, Last time she was in this hospital was also for nausea vomiting and diarrhea. Left inguinal abscess status post I&D and CAT scan showed improvement with no fluid collection and no need for antibiotics upon discharge. Also treated for Shalonda UTI. Patient's tachycardia not febrile CBC BMP LFT were unremarkable. Urine is concentrated sample. Magnesium 1.3. TSH is normal at 0.8 and parathyroid hormone is normal at 30. EKG showing sinus tachycardia [address]-T changes. 01/22 Patient with no abdominal pain and vomiting stopped. She did not start eating it because she had significant migraine headache she is having history of migraine but did not have a headache for a while. Her PCP started her on Imitrex but she did not take it because she did not have headache recently. Patient states is the same migraine headache. She still have lower abdominal drainage from her lower abdominal wound, mild erythema around the orifice, dressing in place No other new complaints Calcium still elevated with mL calcium about 8 Patient remains on IV fluids. Vitamin D levels were ordered and is pending Nephrology, ID and surgery team on the case Will start pain management 01/23 Patient with the same symptoms, no vomiting. Still has lower abdominal wound/ fistula and draining. She remains on IV Zosyn. Surgery team following plan for EGD today. IR team were consulted for left lower quadrant abdominal abscess Also hypercalcemia is improving slightly and gradually, as per nephrology team it is chronic was previously elevated calcium on several occasion for over several years. Nephrology team suspecting sarcoidosis and parathyroid hormone abnormality. Patient still instructed to follow-up outpatient with PCP for further workup for hypercalcemia and she agrees. CT of the abdomen did not show any mass or suspicious for malignancy so far. Seroquel and Requip remains on hold Still getting normal saline 130 mL/h, tachycardia significantly improved though. Low magnesium been replaced 01/24 Patient is awake alert and oriented She states some improvement. No nausea vomiting and diet has been advanced per surgery team following. Surgery team recommended repair of hiatal hernia as an outpatient Her lower abdominal wound and cellulitis improving, less discharge, there was suspicion of an abscess but with review of radiologist there is no fluid enough to be drained per IR team. Patient currently continued antibiotics with Zosyn Also redness calcium improving down to 6. Patient continued with normal saline. An appointment made for her with her PCP Dr. Pedersen and nurse practitioner Lexy on 01/28 to which she agrees to. Possible discharge in 24 to 48 hours if she keeps improving Patient has appointment on 01/28 with [employer] Caitlin, I called Caitlin today and I discussed the case with her over the phone including her diagnosis of hyperc alcemia and lower abdominal wound/fistula. Also we discussed the recommendation to an do further workup for hypercalcemia including but not limited to parathyroid hormone related peptide. If that is elevated she might need more workup for cancer. Also I recommended that she might be referred to oncologist Dr. Butcher in 1 week and she kindly did take note of this as well. Patient also informed of this recommendation and she is agreeable 01/25 Patient works fine and it is fine No abdominal pain No bowel movement yesterday or this morning Start regular food today Wound looks better heart little dizziness Total calcium came back to normal 9.3 however ionized calcium still mildly elevated 5.6 with normal 5.3 or less therefore we are going to continue IV fluid for another 24 hours Low magnesium and potassium have been replaced. Keep monitor level closely Surgery cleared the patient Patient can switch to oral antibiotic Augmentin upon discharge Possible discharge in 24 to 48 hours I told the patient about her appointment with Caitlin [employer] on 01/28 and she is agreeable Objective - Vital Signs Vital signs: Vital Signs Temp 98.4 F 01/25/25 13:30 Pulse 83 01/25/25 13:30 Resp 16 01/25/25 13:30 BP 119/76 01/25/25 13:30 Pulse Ox 97 01/25/25 13:30 FiO2 Intake & Output 01/24/25 01/25/25 01/25/25 18:59 06:59 18:59 Other: Voiding Method Toilet # Voids 3 # Bowel Movements 5 - Exam Patient is a pleasant 59 years old female with past medical history of multiple medical problems as below. Patient presents because of nausea vomiting started since Monday night, about 4 to 5 days ago Yesterday patient was only drinking water and a whole to stop her emesis. Patient was not coherent her hip and heels hurts she did not sleep well Her last bowel movement was yesterday and look normal with no diarrhea. Patient felt pain all over her body Patient denies dysuria or urgency no chest pain or dyspnea or coughing Patient feels dizzy when she tries to get up. No weakness or tingling in the limbs She had some abdominal pain nonradiating in the epigastric area with no known precipitating or relieving factor, felt just as ache She denies smoking alcohol illicit drug She had recent history for her lower abdominal abscess, her surgeon was Dr. Cook, Last time she was in this hospital was also for nausea vomiting and diarrhea. Left inguinal abscess status post I&D and CAT scan showed improvement with no fluid collection and no need for antibiotics upon discharge. Also treated for Shalonda UTI. - Labs CBC & Chem 7: 01/25/25 03:09 01/25/25 03:09 Labs: Abnormal Lab Results - Last 24 Hours (Table) 01/25/25 01/25/25 Range/Units 03:09 03:09 WBC 3.20 L (4.50-10.00) X 10*3/uL RBC 3.13 L (4.10-5.20) X 10*6/uL Hgb 8.1 L (12.0-15.0) g/dL Hct 26.5 L (37.2-46.3) % MCH 25.9 L (27.0-32.0) pg MCHC 30.6 L (32.0-37.0) g/dL RDW 16.4 H (11.5-14.5) % Plt Count 443 H (140-440) X 10*3/uL Neutrophils # 1.31 L (1.80-7.70) X 10*3/uL Eosinophils # 0.39 H (0.04-0.35) X 10*3/uL Potassium 3.3 L (3.5-5.5) mmol/L Carbon Dioxide 17.7 L (21.6-31.8) mmol/L Anion Gap 14.30 H (4.00-12.00) mmol/L BUN <3.5 L (9.0-27.0) mg/dL BUN/Creatinine Ratio <5.83 L (12.00-20.00) Ratio Glucose 65 L (70-110) mg/dL Ionized Calcium Nelson 5.6 H (4.5-5.3) mg/dL Magnesium 1.4 L (1.5-2.4) mg/dL Assessment and Plan Assessment: Nausea vomiting, secondary to hypercalcemia. Improved Hypercalcemia, chronic suspected secondary to sarcoidosis versus parathyroid hormone abnormality needs outpatient follow-up and patient agrees Recurrent lower abdominal abscess/fistula. 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 Nephrology team Consult nephrology team Consult infectious disease team and general surgery team Follow-up with [employer] Caitlin on 01/28, patient informed as well as [employer] Caitlin for further workup and referral to oncologist Hold Seroquel and Requip if possible which might contribute to the GI symptoms Labs and medication were reviewed.. Continue same treatment. Continue with symptomatic treatment. Resume home medication. Monitor labs and vitals. DVT and GI prophylaxis. Further recommendations as per clinical course of the patient DVT prophylaxis: Subcutaneous heparin GI Prophylaxis: Ppi PT/OT: Pending Prognosis is guarded
[2025-01-25] MEDS: POTASSIUM CHLORIDE ER 20 MEQ TAB.ER PO STA (18:07)
[2025-01-25] MEDS: MAGNESIUM SULFATE-D5W PMX 1 GM in DEXTROSE/WATER 1 100ML.BAG IVPB SCH ×2 (18:49→20:41)
[2025-01-25] MEDS: POTASSIUM CHLORIDE ER 20 MEQ TAB.ER PO SCH (20:37)
[2025-01-25 21:32] LABS: Magnesium 1.4 mg/dL (1.6-2.3); Potassium 3.7 mmol/L (3.5-5.1)
[2025-01-25] MEDS: POTASSIUM CHLORIDE 10 MEQ in WATER FOR INJECTION 1 100ML.BAG IVPB STA (23:15)
[2025-01-26] MEDS: TEMAZEPAM 15 MG CAP PO PRN (00:07)
[2025-01-26 02:55] VITALS: RESP 16
[2025-01-26 09:06] LABS: Anion Gap 17.10 mmol/L (4.00-12.00); BUN/Creat Ratio <7.00 Ratio (12.00-20.00); Blood Urea Nitrogen <3.5 mg/dL (9.0-27.0); Calcium 8.9 mg/dL (8.7-10.3); Carbon Dioxide 17.9 mmol/L (21.6-31.8); Chloride 110 mmol/L (96-109); Glucose 68 mg/dL (70-110); Magnesium 2.1 mg/dL (1.5-2.4); Potassium 4.3 mmol/L (3.5-5.5); Sodium 145 mmol/L (135-145)
[2025-01-26 09:54] VITALS: BP 124/80; PULSE 74; TEMP 97.9
--- NOTE | 2025-01-26 10:20 | P.PN ---
Subjective Progress Note Date: 01/26/25 Principal diagnosis: Abdominal pain Patient feels well today. No nausea or vomiting. Tolerating diet. States she was kept because her calcium was elevated. Objective - Vital Signs Vital signs: Vital Signs Temp 97.9 F 01/26/25 07:14 Pulse 74 01/26/25 07:14 Resp 16 01/26/25 07:14 BP 124/80 01/26/25 07:14 Pulse Ox 100 01/26/25 07:14 FiO2 Intake & Output 01/25/25 01/26/25 01/26/25 18:59 06:59 18:59 Intake Total 2160 Balance 2160 Intake: Oral 2160 Other: Voiding Method Toilet # Voids 3 6 - Exam Abdomen: Soft, nontender, nondistended - Labs CBC & Chem 7: 01/25/25 03:09 01/26/25 02:46 Labs: Abnormal Lab Results - Last 24 Hours (Table) 01/25/25 01/26/25 Range/Units 20:38 02:46 Chloride 110 H (96-109) mmol/L Carbon Dioxide 17.9 L (21.6-31.8) mmol/L Anion Gap 17.10 H (4.00-12.00) mmol/L BUN <3.5 L (9.0-27.0) mg/dL Creatinine 0.5 L (0.6-1.5) mg/dL BUN/Creatinine Ratio <7.00 L (12.00-20.00) Ratio Glucose 68 L (70-110) mg/dL Magnesium 1.4 L (1.6-2.3) mg/dL Assessment and Plan (1) Acute nausea with nonbilious vomiting Narrative/Plan: Patient doing well today. No abdominal pain. May discharge from our standpoint . May discharge from our standpoint. Follow-up with Dr. Cook as outpatient. Follow-up with Dr. Cook as outpatient. Current Visit: Yes Status: Acute Code(s): R11.2 - NAUSEA WITH VOMITING, UNSPECIFIED SNOMED Code(s): 09333471
--- NOTE | 2025-01-26 12:37 | P.PN ---
Subjective Progress Note Date: 01/26/25 Patient is seen for follow-up for hypercalcemia. Workup has revealed elevated CHRISTIANO level and slightly elevated PTH of 30.8 for a serum calcium 16.1 on admission. Evidence of bilateral nephrolithiasis. Chest x-ray is unremarkable. Patient could not complete the nuclear medicine scan for parathyroid glands. Patient denies any new complaints. General: No acute distress. HEENT: Head exam is unremarkable. LUNGS: No audible rhonchi or wheezes. HEART: Normal S1 and S2 heart sounds. ABDOMEN: Nontender EXTREMITITES: no edema Objective - Vital Signs Vital signs: Vital Signs Temp 97.9 F 01/26/25 07:14 Pulse 74 01/26/25 07:14 Resp 16 01/26/25 07:14 BP 124/80 01/26/25 07:14 Pulse Ox 100 01/26/25 07:14 FiO2 Intake & Output 01/25/25 01/26/25 01/26/25 18:59 06:59 18:59 Intake Total 2160 Balance 2160 Intake: Oral 2160 Other: Voiding Method Toilet # Voids 3 6 - Labs CBC & Chem 7: 01/25/25 03:09 01/26/25 02:46 Labs: Abnormal Lab Results - Last 24 Hours (Table) 01/25/25 01/26/25 Range/Units 20:38 02:46 Chloride 110 H (96-109) mmol/L Carbon Dioxide 17.9 L (21.6-31.8) mmol/L Anion Gap 17.10 H (4.00-12.00) mmol/L BUN <3.5 L (9.0-27.0) mg/dL Creatinine 0.5 L (0.6-1.5) mg/dL BUN/Creatinine Ratio <7.00 L (12.00-20.00) Ratio Glucose 68 L (70-110) mg/dL Magnesium 1.4 L (1.6-2.3) mg/dL Assessment and Plan Assessment: 1. Hypercalcemia, chronic noted from 2016. Serum calcium was 16.1 on admission, 9.5 today. Intact PTH 30.8. It should have been much lower given the significantly elevated calcium, suggesting possibility of underlying primary hyperparathyroidism. Patient should have complete workup given evidence of renal calcification and fairly young age. Bilateral renal calculi noted on renal ultrasound on 08/12/24. Patient was maintained on calcium supplementation, now discontinued. CHRISTIANO level is elevated but 125 hydroxy vitamin D level is not. Patient could not complete the parathyroid nuclear medicine scan due to back pain. CT negative for evidence of sarcoidosis. 2. Mild hypomagenisum secondary to proton pump inhibitors. Maintained on magnesium oxide supplementation. 3. Iron deficiency anemia. Chronic per chart review. Ferrous sulfate taken at home. Currently taking ferrous sulfate inpt. 4. Bilateral renal calculi, nonobstructive, associated with hypercalcemia. Plan: Discontinue IVF Continue off of calcium supplements CHRISTIANO levels elevated. Vit D 1-25 normal range. Chest x-ray is unremarkable. Can complete parathyroid nuclear scan outpatient Clear for discharge
--- NOTE | 2025-01-26 15:49 | P.PN ---
Subjective Progress Note Date: 01/26/25 Principal diagnosis: Reason for follow-up is left lower abdominal wound and intra-abdominal abscess patient is a 59-year-old female with a past medical history significa nt for Coronary Artery Disease (CAD), Chest Pain / Angina, Fibromyalgia, Musculoskeletal Disorder, Renal Disease did have history of recurrent left lower quadrant abscess likely diverticular related last drainage procedure done 12/03/2024 for which the patient has received IV and oral antibiotic follow-up CT shows resolution of the abscess now presented the hospital with nausea vomiting and diarrhea with a repeat CT abdominal pelvis nonconcerning for 1.2 cm hypodense area at the postsurgical site of the left lower anterior pelvic wall concerning for developing abscess. On today's evaluation that is 01/26/2025, Patient is afebrile patient is currently on room air and denies having any shortness of breath, the patient denies any chest pain or cough, the patient denies any nausea vomiting did not have any abdominal pain and no diarrhea. Patient creatinine 0.5 no CBC was done today Objective - Vital Signs Vital signs: Vital Signs Temp 97.9 F 01/26/25 07:14 Pulse 74 01/26/25 07:14 Resp 16 01/26/25 07:14 BP 124/80 01/26/25 07:14 Pulse Ox 100 01/26/25 07:14 FiO2 Intake & Output 01/25/25 01/26/25 01/26/25 18:59 06:59 18:59 Intake Total 2160 Balance 2160 Intake: Oral 2160 Other: Voiding Method Toilet # Voids 3 6 - Exam GENERAL DESCRIPTION: Middle-age female lying in bed in no distress RESPIRATORY SYSTEM: Unlabored breathing , decreased breath sounds at bases HEART: S1 S2 regular rate and rhythm , ABDOMEN: Soft , no tenderness EXTREMITIES: No edema feet - Labs CBC & Chem 7: 01/25/25 03:09 01/26/25 02:46 Labs: Abnormal Lab Results - Last 24 Hours (Table) 01/25/25 01/26/25 Range/Units 20:38 02:46 Chloride 110 H (96-109) mmol/L Carbon Dioxide 17.9 L (21.6-31.8) mmol/L Anion Gap 17.10 H (4.00-12.00) mmol/L BUN <3.5 L (9.0-27.0) mg/dL Creatinine 0.5 L (0.6-1.5) mg/dL BUN/Creatinine Ratio <7.00 L (12.00-20.00) Ratio Glucose 68 L (70-110) mg/dL Magnesium 1.4 L (1.6-2.3) mg/dL Assessment and Plan (1) Open abdominal wall wound Current Visit: Yes Status: Acute Code(s): S31.109A - UNSP OPN WND ABD WALL, UNSP Q W/O PENET PERIT CAV, INIT SNOMED Code(s): 604971852 (2) Acute nausea with nonbilious vomiting Current Visit: Yes Status: Acute Code(s): R11.2 - NAUSEA WITH VOMITING, UNSPECIFIED SNOMED Code(s): 46424607 Plan: 1patient presented to hospital with tractable nausea vomiting and also having diarrhea with a question of gastroenteritis in this patient also have a nonhealing wound to the left lower quadrant area with a question of possible abdominal wall wound infection/cellulitis underlying abscess not on excluded 2-patient did have CT of abdominal pelvis with concern for left lower quadrant abdominal abscess, IR consult was requested for drainage and subsequently CT was reviewed with radiologist and there was no evidence of any fluid to be drained hence IR consult has been discontinued 3-patient afebrile white count has been normal did have resolution of her nausea and vomiting insisting on going home we will consider short course of oral Ceftin and Flagyl prescription sent to the pharmacy and close outpatient follow- up Dictation was produced using [email or web address] dictation software. please excuse any grammatical, word or spelling errors. Time with Patient: Less than 30
== END 2025-01-26 17:12 | disposition home or self-care (01) | DRG 393 ==
LOC: EC 10:21 → 1SOBS 15:03 → 4SSUR 01-23 18:28
PROVIDERS: ADMIT Internal Medicine; ATTEND Internal Medicine
PROC: 0DB78ZX Excision of Stomach, Pylorus, Via Natural or Artificial Opening Endoscopic, Diagnostic (ICD-10-PCS; principal; 2025-01-23 09:25)
DX: K63.2 Fistula of intestine (principal); K65.1 Peritoneal abscess; L02.214 Cutaneous abscess of groin; B37.49 Other urogenital candidiasis; G43.909 Migraine, unspecified, not intractable, without status migrainosus; D50.9 Iron deficiency anemia, unspecified; N18.9 Chronic kidney disease, unspecified; L03.311 Cellulitis of abdominal wall; E83.42 Hypomagnesemia; E83.52 Hypercalcemia; E86.0 Dehydration; I25.10 Atherosclerotic heart disease of native coronary artery without angina pectoris; K29.70 Gastritis, unspecified, without bleeding; K44.9 Diaphragmatic hernia without obstruction or gangrene; M79.7 Fibromyalgia; N28.89 Other specified disorders of kidney and ureter; Z79.899 Other long term (current) drug therapy; Z82.49 Family history of ischemic heart disease and other diseases of the circulatory system; Z87.442 Personal history of urinary calculi; Z90.710 Acquired absence of both cervix and uterus; N20.0 Calculus of kidney
CPT/HCPCS: 36415; 43239; 71046; 71250; 74177; 78070; 80048; 80053; 81001; 82164; 82306; 82330; 82652; 83540; 83550; 83605; 83630; 83690; 83735; 83970; 83993; 84100; 84132; 84443; 85025; 86334; 86335; 87086; 88305; 88342; 93005; 96361; 96365; 96366; 96375; 96376; 99285